=== PATIENT | male | born 1950 | race Caucasian/White ===

== ENCOUNTER → 2017-12-05 14:44 | Outpatient (CLI) | payer MEDICARE, SELFPAY ==
[2017-12-05 15:14] LABS: Hemoglobin A1c 5.8 % (4.2-6.3)
[2017-12-05 15:18] LABS: Microalbumin,Random Urine 13.6 mg/L (NO RANGE EST.); Microalbumin:Creatinine Ratio 6.8 mg/g CRE (<30 mg/g CRE)
== END ==
PROVIDERS: Family Provider Family Medicine; PCP Family Medicine
DX: Z79.899 Other long term (current) drug therapy (principal)
CPT/HCPCS: 82043; 82570; 83036

== ENCOUNTER → 2017-12-14 12:28 | Outpatient (CLI) | payer MEDICARE, SELFPAY ==
[2017-12-14 13:17] LABS: BUN 15 mg/dL (7-18); Glucose 111 mg/dL (74-106)
[2017-12-14 13:18] LABS: ALB/GLOB Ratio 1.3 RATIO (0.9-2.4); AST(SGOT) 23 U/L (15-37); Alanine Aminotransfer ALT/SGPT 35 U/L (16-61); Albumin, Serum 3.9 g/dL (3.2-5.0); Alkaline Phosphatase 79 U/L (45-117); Anion Gap 7 (5-15); BUN/Creat Ratio 14.2 RATIO (10-20); Calcium,Total 8.4 mg/dL (8.5-10.1); Chloride 105 mmol/L (98-107); Cholesterol 136 mg/dL (200); Creatinine, Serum 1.06 mg/dL (0.70-1.30); EST Glomerular Filtration Rate 74 mL/min (>60); Est Glom Filt Rate - Afr Amer 89 mL/min (>60); Globulin 3.1 g/dL (2.2-4.2); High Density Lipoprotein 42 mg/dL; Potassium 3.7 mmol/L (3.5-5.1); Sodium Level 140 mmol/L (136-145); Triglycerides 198 mg/dL; Very Low Density Lipoprotein 40 mg/dL (5-40)
== END ==
PROVIDERS: Visit Provider Family Medicine
DX: I25.10 Atherosclerotic heart disease of native coronary artery without angina pectoris (principal)
CPT/HCPCS: 80053; 80061

== ENCOUNTER → 2018-06-11 07:59 | Outpatient (CLI) | payer MEDICARE, SELFPAY ==
[2018-06-11 15:02] LABS: Hemoglobin A1c 5.5 % (4.2-6.3)
== END ==
PROVIDERS: Family Provider Family Medicine; PCP Family Medicine; Visit Provider Family Medicine
DX: R73.01 Impaired fasting glucose (principal)
CPT/HCPCS: 83036

== ENCOUNTER → 2018-06-13 16:54 | Outpatient (CLI) | payer MEDICARE, SELFPAY ==
[2018-06-13 17:18] LABS: ALB/GLOB Ratio 1.2 RATIO (0.9-2.4); AST(SGOT) 22 U/L (15-37); Alanine Aminotransfer ALT/SGPT 22 U/L (16-61); Albumin, Serum 3.7 g/dL (3.2-5.0); Alkaline Phosphatase 90 U/L (45-117); Anion Gap 7 (5-15); BUN 12 mg/dL (7-18); BUN/Creat Ratio 11.8 RATIO (10-20); Calcium,Total 8.7 mg/dL (8.5-10.1); Chloride 107 mmol/L (98-107); Creatinine, Serum 1.02 mg/dL (0.70-1.30); EST Glomerular Filtration Rate 77 mL/min (>60); Est Glom Filt Rate - Afr Amer 93 mL/min (>60); Glucose 102 mg/dL (74-106); Potassium 3.9 mmol/L (3.5-5.1); Protein, Total 6.7 g/dL (6.4-8.2); Sodium Level 143 mmol/L (136-145)
== END ==
PROVIDERS: Family Provider Family Medicine; PCP Family Medicine; Visit Provider Family Medicine
DX: E78.2 Mixed hyperlipidemia (principal); I10 Essential (primary) hypertension
CPT/HCPCS: 80053

== ENCOUNTER → 2019-06-02 | Outpatient (CLI) | payer MEDICARE, SELFPAY ==
[2019-06-02 13:33] LABS: ALB/GLOB Ratio 1.1 RATIO (0.9-2.4); AST(SGOT) 24 U/L (15-37); Alanine Aminotransfer ALT/SGPT 29 U/L (16-61); Albumin, Serum 3.5 g/dL (3.2-5.0); Alkaline Phosphatase 93 U/L (45-117); Anion Gap 7 (5-15); BUN 17 mg/dL (7-18); BUN/Creat Ratio 17.6 RATIO (10-20); Calcium,Total 8.8 mg/dL (8.5-10.1); Chloride 108 mmol/L (98-107); Creatinine, Serum 0.96 mg/dL (0.70-1.30); EST Glomerular Filtration Rate 82 mL/min (>60); Est Glom Filt Rate - Afr Amer 99 mL/min (>60); Globulin 3.1 g/dL (2.2-4.2); Glucose 107 mg/dL (74-106); Protein, Total 6.6 g/dL (6.4-8.2); Sodium Level 141 mmol/L (136-145)
[2019-06-02 13:39] LABS: Hemoglobin A1c 5.6 % (4.2-6.3)
== END | disposition home or self-care (01) ==
PROVIDERS: Referring Provider Family Medicine; Visit Provider Family Medicine
DX: R73.01 Impaired fasting glucose (principal); I10 Essential (primary) hypertension
CPT/HCPCS: 80053; 83036

== ENCOUNTER → 2019-07-16 06:41 | Outpatient (CLI) | payer MEDICARE, SELFPAY ==
--- NOTE | 2019-07-16 06:45 | CT_ITS ---
EXAM DESCRIPTION: CLINICAL HISTORY: 69 years Male, COMPARISON: None TECHNIQUE: A CTA scan of the abdomen and pelvis was performed initially with IV contrast contrast administration. 3-D volume reconstruction images were obtained. Coronal and sagittal reconstruction images were reviewed. This exam was performed according to our departmental dose-optimization program, which includes automated exposure control, adjustment of the mA and/or kV according to patient size and/or use of iterative reconstruction technique. CTDI: 16.17 DLP: 1089.94 FINDINGS: The lung bases and the base of the heart are normal. The liver is normal.The spleen is normal.The adrenal glands are normal.The head, body, and tail of the pancreas are normal. A large 6 cm cyst is noted in the midportion of the right kidney, but the right kidney and left kidneys are otherwise normal. Both ureters appear to be normal, and no obstructive uropathy is identified. No paraortic lymphadenopathy is seen. No abdominal masses or lesions are seen. CTA images of the abdominal aorta and iliofemoral circulation was reviewed and shows the proximal abdominal aorta including the celiac axis and superior mesenteric artery and right and left renal arteries to be normal. There is an accessory inferior right renal artery. There is a fusiform infrarenal abdominal aortic aneurysm which begins 1.24 cm inferior to the accessory renal artery on the right. This aneurysm extends for a distance of 8 cm down to level of the aortic bifurcation. Aneurysm has a maximal AP dimension of 4.5 cm in maximum transverse dimension of 4.09 cm. There is some mural thrombus involving the anterior peripheral margin of this aneurysm and the inferior mesenteric artery connects to the superior margin of this aneurysm is patent. The aneurysm does not extend into the common iliac arteries bilaterally which appear to be widely patent. These arteries and the external iliac arteries and common femoral arteries are both widely patent. The CT scan of the pelvis was then reviewed. The common iliac vessels, external iliac vessels, and common femoral vessels are normal along their course and distribution No pelvis masses or lesions are seen. The appendix is normal. No pericecal inflammatory reaction is seen. Bone scanning windows of the lumbar spine and pelvis were reviewed in the coronal and sagittal planes and appear to be normal. CT/CT ANGIO ABD&PEL W/O&W/DYE IMPRESSION: A 4.5 x 4.1 cm infrarenal abdominal aortic aneurysm is identified, which extends for a distance of 8 cm along the distal abdominal aorta. AAA Size: Follow-up Recommendation (1): 4.5 - 5.4 cm Every 6 months, vasc consult rec (1)Based upon the Society for Vascular Surgery Guidelines: J Vasc Surg. 2009 Oct;50(4 Suppl):S2-49 (2)For aortas of max merlin of 2.6-2.9 cm that meet criteria for AAA (>= 1.5 x proximal normal segment) Electronically Signed: Livan Negron, at 8:47 EDT Tel , Service support ,
--- NOTE | 2019-07-16 07:12 | CT_ITS ---
STUDY: CTA CHEST REASON FOR EXAM: Male, 69 years old. Abdominal aortic aneurysm. Hypertension RADIATION DOSAGE (If Supplied By Facility): CTDIvol = ( 15.21 ) mGy, DLP = ( 1089.94 ) mGycm TECHNIQUE: The examination was performed with the intravenous administration of IV Isovue 300 100. Post-processing of the angiographic images was performed, with multiplanar reformation and 3D reconstruction. Individualized dose optimization techniques were used for this CT. COMPARISON: None. FINDINGS: Normal enhancement of the main pulmonary artery and right and left pulmonary arteries. Normal enhancement of the bilateral peripheral pulmonary arteries. There is no demonstrated pulmonary embolism. Normal thoracic aorta and visualized great vessels. There is no demonstrated aortic dissection. Normal heart and pericardium. Coronary calcification arteriosclerosis is identified. Normal mediastinum. Normal hilar regions. Normal visualized trachea and bronchi. The lungs are well expanded. Normal pulmonary parenchyma. Normal pleura. No pleural-based calcifications are seen. Normal chest wall structures. Normal osseous structures. Normal visualized upper abdomen. CT/CTA Chest W/WO Contrast IMPRESSION: Normal CTA chest examination, without a demonstrated pulmonary embolism or arterial dissection. Electronically Signed: Livan Negron, at 8:00 EDT Tel , Service support ,
[2019-07-16 07:15] LABS: CREATININE FINGERSTICK 0.83 mg/dL (0.70-1.30); EGFR FINGERSTICK > 60 mL/min (>60)
== END ==
PROVIDERS: Family Provider Family Medicine; PCP Family Medicine
DX: I71.4 Abdominal aortic aneurysm, without rupture (principal)
CPT/HCPCS: 71275; 74174; Q9967

== ENCOUNTER → 2019-12-08 | Outpatient (CLI) | payer MEDICARE, SELFPAY ==
[2019-12-08 14:09] LABS: Cholesterol 150 mg/dL (200); High Density Lipoprotein 45 mg/dL; Triglycerides 145 mg/dL; Very Low Density Lipoprotein 29 mg/dL (5-40)
== END | disposition home or self-care (01) ==
LOC: LABSPEC 13:32
PROVIDERS: PCP Family Medicine; Referring Provider Family Medicine; Visit Provider Family Medicine
DX: E78.2 Mixed hyperlipidemia (principal)
CPT/HCPCS: 80061

== ENCOUNTER → 2020-06-22 | Outpatient (CLI) | payer MEDICARE, SELFPAY ==
[2020-06-22 14:10] LABS: ALB/GLOB Ratio 1.3 RATIO (0.9-2.4); AST(SGOT) 26 U/L (15-37); Alanine Aminotransfer ALT/SGPT 32 U/L (16-61); Albumin, Serum 3.8 g/dL (3.2-5.0); Alkaline Phosphatase 88 U/L (45-117); Anion Gap 6 (5-15); BUN 18 mg/dL (7-18); BUN/Creat Ratio 15.9 RATIO (10-20); Calcium,Total 8.7 mg/dL (8.5-10.1); Chloride 105 mmol/L (98-107); Creatinine, Serum 1.13 mg/dL (0.70-1.30); EST Glomerular Filtration Rate 68 mL/min (>60); Est Glom Filt Rate - Afr Amer 82 mL/min (>60); Glucose 114 mg/dL (74-106); Potassium 4.1 mmol/L (3.5-5.1); Protein, Total 6.8 g/dL (6.4-8.2); Sodium Level 140 mmol/L (136-145)
== END | disposition home or self-care (01) ==
LOC: LABSPEC 12:50
PROVIDERS: PCP Family Medicine; Referring Provider Family Medicine; Visit Provider Family Medicine
DX: I10 Essential (primary) hypertension (principal)
CPT/HCPCS: 80053

== ENCOUNTER → 2020-12-09 13:20 | Outpatient (CLI) | payer MEDICARE, SELFPAY ==
[2020-12-09 15:52] LABS: Hematocrit 48.2 % (40-54); Hemoglobin 16.2 g/dL (13.0-16.5); Mean Corp Hgb Conc 33.6 g/dL (32-36); Mean Corpuscular Volume 92.2 fL (80-94); Mean Platelet Vol. 9.3 fl (6.2-12.0); Platelet Count 271 K/mm3 (150-450); RBC Distribution Width CV 12.3 % (11.6-14.6); RBC Distribution Width SD 41.3 fl (35.1-43.9); Red Blood Count 5.23 M/mm3 (4.6-6.2); White Blood Count 5.6 K/mm3 (4.4-11.0)
[2020-12-09 16:08] LABS: ALB/GLOB Ratio 1.1 RATIO (0.9-2.4); AST(SGOT) 34 U/L (15-37); Alanine Aminotransfer ALT/SGPT 51 U/L (16-61); Albumin, Serum 3.8 g/dL (3.2-5.0); Alkaline Phosphatase 102 U/L (45-117); Anion Gap 7 (5-15); BUN 15 mg/dL (7-18); Chloride 107 mmol/L (98-107); Cholesterol 155 mg/dL (200); EST Glomerular Filtration Rate 78 mL/min (>60); Est Glom Filt Rate - Afr Amer 95 mL/min (>60); Globulin 3.5 g/dL (2.2-4.2); Glucose 112 mg/dL (74-106); High Density Lipoprotein 41 mg/dL; Potassium 4.3 mmol/L (3.5-5.1); Protein, Total 7.3 g/dL (6.4-8.2); Sodium Level 142 mmol/L (136-145); Triglycerides 183 mg/dL; Uric Acid 5.4 mg/dL (3.5-7.2); Very Low Density Lipoprotein 37 mg/dL (5-40)
== END ==
PROVIDERS: PCP Family Medicine; Visit Provider Family Medicine
DX: I25.10 Atherosclerotic heart disease of native coronary artery without angina pectoris (principal); M10.9 Gout, unspecified; E78.2 Mixed hyperlipidemia; I10 Essential (primary) hypertension
CPT/HCPCS: 80053; 80061; 84550; 85027

== ENCOUNTER → 2022-03-22 | Outpatient (CLI) | payer MEDICARE, SELFPAY ==
--- NOTE | 2022-03-22 16:39 | CT_ITS ---
STUDY: CT ABDOMEN WITH CONTRAST REASON FOR EXAM: Male, 71 years old. duodenal stenosis -- oral and IV RADIATION DOSAGE (If Supplied By Facility): CTDIvol = ( 15.25 ) mGy, DLP = ( 522.12 ) mGycm TECHNIQUE: Transaxial images were obtained post I.V. administration of Oral and amp;amp; IV Readi-CAT and amp;amp; 100mL Isovue-370, and with oral contrast. Sagittal and coronal images were reconstructed. Individualized dose optimization techniques were used for this CT. COMPARISON: None. FINDINGS: The visualized lung bases are unremarkable. The visualized portions of the heart are within normal limits. Normal liver. Normal gallbladder and extrahepatic biliary system. Normal spleen. Normal pancreas. Normal bilateral adrenal glands. 5.5 cm cyst of the midsection of right kidney. 3 mm nonobstructing stone in the mid section of the right kidney. 3 mm nonobstructing stone lower pole right kidney. No hydronephrosis, ureteral stone, ureteral dilatation. Normal visualized stomach. Normal small intestine. Normal colon. The appendix is visualized and appears normal. 4.5 cm fusiform aneurysm of the infrarenal abdominal aorta. Normal inferior vena cava. Normal retroperitoneum. Normal abdominal wall. Normal osseous structures. CT/Abdomen WITH IV Contrast IMPRESSION: 1. Bilateral nonobstructing renal stones. 2. 5.5 cm right renal cyst. 3. 4.5 cm abdominal aortic aneurysm. Electronically Signed: Tulio Joseph MD at 17:35 EDT ,
[2022-03-23 07:25] LABS: CREATININE FINGERSTICK < 0.9 mg/dL (0.70-1.30); EGFR FINGERSTICK > 60.0000 mL/min (>60)
== END | disposition home or self-care (01) ==
PROVIDERS: PCP Family Medicine; Visit Provider Nurse Practitioner Adult Health
DX: K31.5 Obstruction of duodenum (principal)
CPT/HCPCS: 74160; Q9967

== ENCOUNTER 2022-04-07 05:09 | Day surgery (SDC) | payer MEDICARE, SELFPAY ==
--- NOTE | 2022-04-07 | IMM_PTH ---
PATIENT: JOÃO COX LOC: EN U#:[id number] AGE/SX: 71/M ROOM: RE04/07/[address]: Dr. Carlton Moran DO : 1950 BED: DIS: 04/07/2022 SPEC #: [id number] RECD: 04/11/22 13:10 STATUS: JOSEPH REReinier #: [id number] DEB: 04/07/22 00:[address]: Carlton Moran DEPT: IMMUNOHISTOCHEMISTRY RECD BY: Val Husian ENTERED: 04/11/22 13:12 SP TYPE: IMMUNO OTHR DR: Dr. Rush Foy MD Tissues: A - Esophageal mucous membrane B - Pyloric portion of stomach Procedures: H Pylori (initial) P53 (initial) KI-67 (add) PHYSICIAN & INSTITUTION [place] [id number] SPECIMEN INFORMATION: Tissue Source: A ? Distal esophagus, B ? 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 Localization is made via biotin free immunoperoxidase method. Appropriate controls are performed and reacted as expected. Results on target cell population are indicated in the following table: RESULTS: ANTIBODY / CLONE RESULT Block A P53 (DO-7) negative Ki-67 (30-9) positive, very low Block B H Pylori (polyclonal) negative These tests were developed and their performance characteristics determined by [facility]. They may not have been cleared or approved by the U.S. Food and Drug Administration. The FDA has determined that such clearance or approval is not necessary. The above immunohistochemical/dualISH markers are ordered and reviewed by the Pathologist. INTERPRETATION: A. Distal esophagus, biopsy: Negative for dysplasia. B. Pyloric channel ulcer, biopsy: Negative for Helicobacter pylori organisms. SJ:theresa 04/12/2022
[2022-04-07] MEDS: Lactated Ringers 1,000 ML 15 ML IV (05:35)
[2022-04-07 05:48] VITALS: BP 161/85; PULSE 60; RESP 18; TEMP 36.6; O2SAT 98; BMI 26.2
--- NOTE | 2022-04-07 06:30 | EGD_PTH ---
PATIENT: JOÃO COX LOC: EN U#:[id number] AGE/SX: 71/M ROOM: RE04/07/[address]: Dr. Carlton Moran DO : 1950 BED: DIS: 04/07/2022 SPEC #: [id number] RECD: 04/07/22 13:14 STATUS: JOSEPH ELTON #: [id number] DEB: 04/07/22 06:[address]: Carlton Moran DEPT: SURGICAL PATHOLOGY RECD BY: John Taylor ENTERED: 04/07/22 13:30 SP TYPE: EGD BIOPSY WILLIAN DR: Dr. 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 Distal esophagus biopsy, B ? Pyloric channel ulcer biopsy MICROSCOPIC DIAGNOSIS A. 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 Chronic inflammation. Negative for dysplasia. See comment. B. Pyloric channel ulcer, biopsy: Fragments of gastric mucosa with focal ulceration, acute and chronic inflammation. See comment. SJ:rg 04/11/2022 COMMENT A. Alcian blue/PAS stain with matched control is used in the evaluation of the specimen. Immunohistochemistry ([id number]) for P53 and Ki-67 will be performed and results will be reported separately. B. The results of immunohistochemistry for Helicobacter pylori will be reported separately ([id number]). MICROSCOPIC DESCRIPTION Slides are reviewed. GROSS DESCRIPTION A - Received in fixative is one container labeled with the patient's name and designated distal esophagus biopsy. The specimen consists of multiple irregular fragments of light diego soft tissue that in aggregate measure 1 x 0.5 x 0.1 cm. The specimen is totally submitted in one cassette. B - Received in fixative is one container labeled with the patient's name and designated pyloric channel ulcer biopsy. The specimen consists of multiple irregular fragments of light diego soft tissue that in aggregate measure 0.8 x 0.5 x 0.1 cm. The specimen is totally submitted in one cassette. / JUANY:theresa 04/07/2022 TC:2 CPT: 49714 x2, 91343
--- NOTE | 2022-04-07 06:40 | PCM.HP.BLA ---
History and Physical Date of Admission: 04/07/22 [facility] [address] [place] [address] OFFICE VISIT Date of Service:? 03/14/22 MR#: [id number] Acct: [id number] Name:JOÃO SANDERS Rep #: [id number] : 1950 ? ? Provider: ?PEPEC Virginia Nogueira Age/Sex:? 71/M ? ? [place] [facility] [place] Status: Signed Intake Intake Visit Reasons:?CONSU Allergies cefdinir Adverse Reaction (Uncoded 02/07/22 10:17) Nausea/Vom/Diarrhea Medications Aspirin/Acetaminophen/Caffeine [Excedrin Extra Strength Caplet] 1 tab PO PRN PRN 01/24/17 [History Confirmed 01/24/17] meclizine 25 mg PO PRN PRN 01/24/17 [History Confirmed 01/24/17] metoprolol succinate 100 mg PO DAILY 01/24/17 [History Confirmed 01/24/17] allopurinol 100 mg tablet 100 mg PO DAILY 02/07/22 [History] atorvastatin 20 mg tablet 20 mg PO QHS 03/14/22 [History] lisinopril 40 mg tablet 40 mg PO DAILY 03/14/22 [History Confirmed 03/14/22] pantoprazole 40 mg tablet,delayed release 40 mg PO BID? tab 03/14/22 [History] PFSH Medical History?(Updated 03/14/22 @ 14:55 by Virginia Nogueira CLOTH TEARER, CLOTH TEARER-C) AAA (abdominal aortic aneurysm) CAD (coronary artery disease) Diverticulitis Duodenitis without mention of hemorrhage Erectile dysfunction Esophagitis Gout Hypertension Vertigo Surgical History?(Updated 02/07/22 @ 10:22 by Alea Taylor) Hx of tonsillectomy Family History?(Updated 02/07/22 @ 10:23 by Alea Taylor) Mother Colon cancer ?? ? Liver Social History?(Updated 02/07/22 @ 10:24 by Alea Taylor) Smoking Status:? Former smoker alcohol intake:? current HPI HPI Details: JOÃO COX, is a 71 M who presents to the office today for duodenal stenosis.? [facility], referred patient to Dr. Moran for dilation of a moderate stenosis in the first portion of the duodenum that was not traversed.? EGD was done on 12/16/[address] Carmona, a general surgeon at [facility].? Her report notes an acquired benign-appearing intrinsic moderate stenosis was found in the first portion of the duodenum and was not traversed.? She also notes patchy moderately erythematous mucosa with stigmata of recent bleeding in the stomach, and grade a chronic esophagitis.? Biopsies showed reactive gastropathy, negative H. pylori, and superficial fragment of columnar mucosa with focal intestinal metaplasia, negative for dysplasia in the esophagus.? Dr. Carmona referred the patient to Dr. Noonan.? Dr. Noonan's note from 01/31/2022 noted that the EGD done by Dr. Carmona on 07/28/2020 showed erythema friability and ulcerations in the first portion of the duodenum, the scope could not be advanced to the second portion of the duodenum then either.? Biopsy done during the 2019 EGD was unremarkable.? Dr. Noonan's note remarks that the last colonoscopy was 9 years ago, only finding was a polyp which was removed and pathology was negative. Patient has had acid reflux since the age of 39.? His Workman's was first diagnosed at age 49.? He has no symptoms of acid reflux or heartburn or dysphagia on twice daily dosing of pantoprazole.? GI history also includes diverticulosis.? He has no nausea or vomiting.? Bowels are fine, he denies diarrhea, constipation, melena or hematochezia.? He has no abdominal pain.? Appetite is good.? Weight is stable. Comorbidities include hypertension, hyperlipidemia, back pain, gout, CAD, vertigo ROS Const Constitutional: No fatigue, fever(s), headache(s), weight change, sleep problems, abnormal sleep pattern or change in appetite ENT ENT: No headache(s), difficulty swallowing, hoarseness or sore throat Resp Respiratory: No cough, hemoptysis or shortness of breath Cardio Cardiology: No chest pain at rest or generalized swelling Gastro GI: No abdominal pain, belching, bloating, change in bowel habits, change in stool character, coffee ground emesis, constipation, cramping, diarrhea, heartburn, difficulty swallowing, feeling full early, excessive flatus, incontinent of stools, Vomiting blood/hematemesis, Blood in stool, loose stools, Black,tarry stools, nausea/dyspepsia, pain with swallowing or vomiting Musc Musculoskeletal: Positive for back pain and stiffness; No joint pain, joint swelling, numbness or tingling Skin Skin: No itchy eyes or rash Neuro Neurology: No behavioral changes, confusion, headache(s), numbness or tingling Psych Psychiatric: No abnormal sleep pattern, No anxiety, No behavioral changes, No change in appetite, No confusion and No depression Endo Endocrine: No cold intolerance, fatigue, heat intolerance, increased thirst/drinking or weight change Aller/Imm Allergy/Immunologic: No food intolerance or itchy eyes Prabhu/Lymp Hematologic/Lymphatic: Positive for easy bruising; No easy bleeding or enlarged lymph nodes Exam Const General: healthy appearing, comfortable, well developed and well groomed Nutritional Appearance: average body habitus Eyes General: appearance normal, both eyes and all related structures Resp Effort & Inspection: normal respiratory effort GI Inspection: normal to inspection Neuro General: patient alert, patient awake and patient oriented x3 Gait: normal gait Extrem General: no pedal edema Psych Mood: euthymic mood Affect: normal affect Quality Reporting Tobacco Screening ([facility] 138) Smoking Status: Former smoker Assessment and Plan Assessment and Plan (1) GERD (gastroesophageal reflux disease): ?Status:?Acute (2) Workman's esophagus: ?Status:?Acute (3) Duodenal disorder: ?Status:?Acute ?Plan: 71-year-old male with duodenal stenosis.? He has a long history of GERD and Workman's esophagus which is well managed with twice daily dosing of pantoprazole 40 mg.? General surgeon found stenosis in the first part of the duodenum.? He has been referred to Dr. Moran for further evaluation and dilation of the duodenal stenosis.? I reviewed the case with Dr. Moran.? We will get imaging in the form of a CT scan prior to EGD.? He is scheduled for EGD in April.? Follow-up 2 weeks after EGD. Coding Level of Care Code Off vis,new,level 3 Diagnoses GERD (gastroesophageal reflux disease)? K21.9 Workman's esophagus? K22.70 Duodenal disorder? K31.9 I have re-examined the patient. There are no clinical changes since date of exam.
[2022-04-07 06:56] VITALS: BP 134/72; BP 161/85; PULSE 66; RESP 14; TEMP 36.4; O2SAT 96
[2022-04-07 07:00] VITALS: BP 139/75; BP 161/85; PULSE 65; RESP 16; O2SAT 98
--- NOTE | 2022-04-07 07:01 | OP.EGD_ITS ---
Patient Name: Kris Cornell Procedure Date: 04/07/2022 6:22 AM Date of : 1950 Age: 71 Procedure: Upper GI endoscopy Indications: Follow-up of Workman's esophagus, Surveillance for malignancy due to personal history of Workman's esophagus Providers: Carlton Moran DO Medicines: Monitored Anesthesia Care Patient Profile: This is a 71 year old male. Refer to note in patient chart for documentation of history and physical. Patient has symptoms of chronic heartburn. Complications: No immediate complications. Procedure: Pre-Anesthesia Assessment: - Prior to the procedure, a History and Physical was performed, and patient medications and allergies were reviewed. The patient is competent. The risks and benefits of the procedure and the sedation options and risks were discussed with the patient. All questions were answered and informed consent was obtained. Patient identification and proposed procedure were verified by the physician. Mental Status Examination: alert and oriented. Airway Examination: normal oropharyngeal airway and neck mobility. Respiratory Examination: clear to auscultation. CV Examination: normal. Prophylactic Antibiotics: The patient does not require prophylactic antibiotics. Prior Anticoagulants: The patient has taken no previous anticoagulant or antiplatelet agents. After reviewing the risks and benefits, the patient was deemed in satisfactory condition to undergo the procedure. The anesthesia plan was to use moderate sedation / analgesia (conscious sedation). Immediately prior to administration of medications, the patient was re-assessed for adequacy to receive sedatives. The heart rate, respiratory rate, oxygen saturations, blood pressure, adequacy of pulmonary ventilation, and response to care were monitored throughout the procedure. The physical status of the patient was re-assessed after the procedure. After obtaining informed consent, the endoscope was passed under direct vision. Throughout the procedure, the patient's blood pressure, pulse, and oxygen saturations were monitored continuously. The gastroscope was introduced through the mouth, and advanced to the second part of duodenum. The upper GI endoscopy was accomplished without difficulty. The patient tolerated the procedure well. Scope In: 6:46:19 AM Scope Out: 6:51:36 AM Total Procedure Duration Time 0 hours 5 minutes 17 seconds Findings: The esophagus and gastroesophageal junction were examined with white light and narrow band imaging (NBI) from a forward view and retroflexed position. There were esophageal mucosal changes secondary to established long-segment Workman's disease. These changes involved the mucosa at the upper extent of the gastric folds (39 cm from the incisors) extending to the Z-line (33 cm from the incisors). Doniphan-colored mucosa was present. Mucosa was biopsied with a cold forceps for histology in a targeted manner at intervals of 1 cm in the lower third of the esophagus. One specimen bottle was sent to pathology. A small hiatal hernia was present. A small amount of a trichobezoar was found in the gastric body. Two non-bleeding linear gastric ulcers with no stigmata of bleeding were found at the pylorus. The largest lesion was 4 mm in largest dimension. Biopsies were taken with a cold forceps for histology. Verification of patient identification for the specimen was done. Estimated blood loss was minimal. Food (residue) was found in the duodenal bulb. Impression: - Esophageal mucosal changes secondary to established long-segment Workman's disease. Biopsied. - Small hiatal hernia. - A small amount of a trichobezoar in the stomach. - Non-bleeding gastric ulcers with no stigmata of bleeding. Biopsied. - Retained food in the duodenum. Recommendation: - Discharge patient to home. - Resume regular diet. - Continue present medications. - Await pathology results. -PPI twice a day for 8 weeks and Carafate 1 g 3 times a day for 2 weeks - Repeat upper endoscopy in 1 year for surveillance. Procedure Code(s): --- Professional --- 41043, Esophagogastroduodenoscopy, flexible, transoral; with biopsy, single or multiple CPT copyright 2017 [employer]. All rights reserved. The codes documented in this report are preliminary and upon factory expert review may be revised to meet current compliance requirements. Carlton Moran DO 04/07/2022 7:01:03 AM This report has been signed electronically. Number of Addenda: 1 Note Initiated On: 04/07/2022 6:22 AM Addendum Number: 1 Addendum Date: 07/12/2022 6:33:53 AM MAC was used as sedation for this procedure. Carlton Moran DO 07/12/2022 6:33:57 AM This report has been signed electronically.
--- NOTE | 2022-04-07 07:01 | OP.CCLET_ITS ---
07/12/2022 Rush Foy Re : Upper GI endoscopy procedure for Kris Cornell Stu Foy This procedure was performed on Thursday, April 07, 2022. My impressions and recommendations are as follows: Impressions : - Esophageal mucosal changes secondary to established long-segment Workman's disease. Biopsied. - Small hiatal hernia. - A small amount of a trichobezoar in the stomach. - Non-bleeding gastric ulcers with no stigmata of bleeding. Biopsied. - Retained food in the duodenum. Recommendations : - Discharge patient to home. - Resume regular diet. - Continue present medications. - Await pathology results. -PPI twice a day for 8 weeks and Carafate 1 g 3 times a day for 2 weeks - Repeat upper endoscopy in 1 year for surveillance. My findings are described in the full procedure note, which is enclosed. If I can be of further assistance, please feel free to contact me at . Sincerely, Carlton Moran, 04/07/2022 7:01:03 AM This report has been signed electronically.
[2022-04-07 07:05] VITALS: BP 131/82; BP 161/85; PULSE 64; RESP 16; O2SAT 95
[2022-04-07 07:11] VITALS: BP 141/74; BP 161/85; PULSE 61; RESP 16; TEMP 36.4; O2SAT 96
[2022-04-07 07:25] VITALS: BP 161/85
== END 2022-04-07 08:25 | disposition home or self-care (01) ==
LOC: EN 05:14 → AC 05:15
PROVIDERS: PCP Family Medicine; Referring Provider Family Medicine; Visit Provider Internal Medicine Gastroenterology
PROC: 0DJ08ZZ Inspection of Upper Intestinal Tract, Via Natural or Artificial Opening Endoscopic (ICD-10-PCS; CPT 43235; principal; 2022-04-07 06:25)
DX: K22.70 Barrett's esophagus without dysplasia (principal); I71.4 Abdominal aortic aneurysm, without rupture; I25.10 Atherosclerotic heart disease of native coronary artery without angina pectoris; M10.9 Gout, unspecified; I10 Essential (primary) hypertension; Z79.82 Long term (current) use of aspirin; Z79.899 Other long term (current) drug therapy; Z87.19 Personal history of other diseases of the digestive system; Z87.891 Personal history of nicotine dependence; K31.5 Obstruction of duodenum; E78.00 Pure hypercholesterolemia, unspecified; K44.9 Diaphragmatic hernia without obstruction or gangrene; K25.9 Gastric ulcer, unspecified as acute or chronic, without hemorrhage or perforation; T18.2XXA Foreign body in stomach, initial encounter; X58.XXXA Exposure to other specified factors, initial encounter; K21.9 Gastro-esophageal reflux disease without esophagitis
CPT/HCPCS: 43239; 88305; 88313; 88341; 88342; J7120; J2405

== ENCOUNTER 2022-10-07 11:01 | Emergency (ER) | payer MEDICARE, SELFPAY ==
[2022-10-07 11:02] VITALS: BP 159/75; PULSE 54; RESP 18; TEMP 36.6; O2SAT 99; BMI 26.3
--- NOTE | 2022-10-07 11:16 | CT_ITS ---
STUDY: CT ABDOMEN AND PELVIS WITH CONTRAST REASON FOR EXAM: Male, 72 years old. GI Bleed AND DIARRHEA RADIATION DOSAGE (If Supplied By Facility): CTDIvol = ( 17.15 ) mGy, DLP = ( 996.06 ) mGycm TECHNIQUE: Transaxial 3.75 mm images were obtained from the dome of the diaphragm to the symphysis pubis without oral contrast. IV 100mL Isovue-370 was administered. Sagittal and coronal images were reconstructed. Individualized dose optimization techniques were used for this CT. COMPARISON: CT abdomen and pelvis 03/22/2022. 07/16/2019. FINDINGS: Stable emphysema in the bilateral lung bases. The visualized portions of the heart are within normal limits. Stable 0.2 cm low-attenuation left hepatic lobe. This is too small to characterize but has a appearance of this tiny cyst. Normal gallbladder and extrahepatic biliary system. Normal spleen. Normal pancreas. Normal bilateral adrenal glands. Stable large partially loculated right mid renal cyst with stable mild dilatation of the renal pelvis. Previously seen nonobstructing right mid renal calculus is not visualized currently. Stable nonobstructing left inferior renal pole calculus of 2 to 3 mm. Normal visualized stomach. Normal small intestine. There are multiple colonic diverticula consistent with diverticulosis. The appendix is visualized and appears normal. Infrarenal fusiform abdominal aortic aneurysm extending to the bifurcation measuring 5.5 x 5.2 cm with maximum diameter, previously at corresponding level 5.5 x 5.1 cm. This is extending to the iliac bifurcation. There is no iliac artery involvement. No evidence of dissection. Normal inferior vena cava. Normal retroperitoneum. Normal urinary bladder. There are stable small inguinal hernia containing adipose tissue. There are diffuse degenerative changes of the visualized lumbar spine and mild osteopenia CT/Abdomen/Pelvis W IV Cont ONLY IMPRESSION: There is no appendicitis, ascites, diverticulitis, abscess, collection, perforation or obstruction. Falciform infrarenal aortic aneurysm without leak, dissection or retroperitoneal hematoma/hemorrhage without significant change. Stable right renal cysts, left inferior renal pole nonobstructing calculus, emphysema, fat-containing inguinal hernias and degenerative changes. Electronically Signed: Elisabeth Hawthorne MD at 12:57 EST Reading Location ID and State: , Service support ,
--- NOTE | 2022-10-07 11:18 | ED.VIS.GI ---
HPI HPI - GI History of Present Illness Chief Complaint: GI Bleed Narrative Narrative: 72-year-old male past medical history of AAA, presents with rectal bleeding since yesterday. He relates history that he had diarrhea for the last 3 weeks. He denies any fevers or chills. No nausea or vomiting. No abdominal pain. Yesterday he noticed bright red blood mixed with normal colored stool. He denies any pain with bowel movements. He went and saw his primary care physician who performed a rectal examination but there was no evidence of hemorrhoid or blood according to the patient. He does not take blood thinners per se, but does take aspirin. Additionally, he denies any recent antibiotic use regarding the diarrhea. He was sent for evaluation of his lower, painless GI bleed. His last bowel movement was yesterday and he has not had any noted bleeding today, but he has not had a bowel movement. [facility] Medical History AAA (abdominal aortic aneurysm) Alcohol use Back pain CAD (coronary artery disease) Duodenitis without mention of hemorrhage Erectile dysfunction Esophagitis Former smoker Gastric reflux Gout High cholesterol History of echocardiogram History of stress test History of trigger finger History of ulceration Hx of dislocation of shoulder Hypertension Vertigo Wears dentures Wears glasses Wears partial dentures Home Medications Aspirin/Acetaminophen/Caffeine [Excedrin Extra Strength Caplet] 1 tab PO PRN PRN Migraine Symptoms 01/24/17 [History Last Taken Unknown] meclizine 25 mg tablet 25 mg PO PRN PRN Vertigo 01/24/17 [History Last Taken Unknown] metoprolol succinate 100 mg tablet,extended release 24 hr 100 mg PO DAILY 01/24/17 [History Last Taken 04/07/22] allopurinol 100 mg tablet 100 mg PO DAILY 02/07/22 [History Last Taken Unknown] atorvastatin 20 mg tablet 20 mg PO QHS 03/14/22 [History Last Taken Unknown] lisinopril 40 mg tablet 40 mg PO DAILY 03/14/22 [History Last Taken 04/07/22] pantoprazole 40 mg tablet,delayed release 40 mg PO BID 03/14/22 [History Last Taken 04/07/22] Allergy/AdvReac Type Severity Reaction Status Date / Time cefdinir AdvReac Nausea/Vom/ Verified 10/07/22 11:05 Diarrhea Family History Mother Colon cancer Liver Surgical History Hx of arthroscopic knee surgery Hx of colonoscopy Hx of esophagogastroduodenoscopy Hx of left knee surgery Hx of tonsillectomy Social History Smoking Status: Former smoker alcohol intake: current ROS ROS ED ROS Narrative Constitutional: No fever, no chills. HEENT: No sore throat. No neck pain. No loss of vision. No rhinorrhea. Cardiovascular: No chest pain. No palpitations. No pedal edema. Respiratory: No cough, no shortness of breath. Abdominal: No abdominal pain. No nausea. No vomiting. Positive diarrhea x3 weeks. Blood mixed with stool yesterday. Genitourinary: No dysuria. No hematuria. Musculoskeletal: No myalgias. No arthralgias. Neurologic: No headaches. No dizziness. No lightheadedness. Skin: No rash. No change in color. Psychiatric: No depression. No anxiety. EXAM Physical Exam Narrative Exam Narrative: Afebrile. Vital signs noted. HEENT: Normocephalic. Atraumatic. PERRL, EOMI. Neck soft and supple. No point tenderness or step off. Cardiovascular: Regular rate and rhythm. No murmurs, rubs, or gallops appreciated. Respiratory: No tachypnea. Lungs clear to auscultation bilaterally. Gastrointestinal: Abdomen soft, nontender, with normoactive bowel sounds. No rebound or guarding. Rectal examination was deferred as he has had a rectal examination already today. Neurological: Awake. Alert. Nonfocal, nonlateralizing. Skin: No rash. Normal color. No pallor. Musculoskeletal: No pedal edema. Full range of motion extremities. Const Vital Signs: 10/07/22 11:02 10/07/22 11:29 10/07/22 12:35 Temperature 97.8 F Temperature Source Temporal Pulse Rate 54 L 54 L 59 L Pulse Rate [Lying] Pulse Rate [Sitting (for 1 minute prior to obtaining)] Respiratory Rate 18 18 19 H Blood Pressure 159/75 H 155/73 H 135/65 H Blood Pressure [Lying] Blood Pressure [Sitting (for 1 minute prior to obtaining)] Blood Pressure [Standing (for 1 minute prior to obtaining)] Blood Pressure Mean 103 100 88 Blood Pressure Mean [Lying] Blood Pressure Mean [Sitting (for 1 minute prior to obtaining)] Blood Pressure Mean [Standing (for 1 minute prior to obtaining)] Pulse Ox 99 97 96 Oxygen Delivery Method Room Air Room Air Room Air 10/07/22 12:50 Temperature Temperature Source Pulse Rate Pulse Rate [Lying] 58 L Pulse Rate [Sitting (for 1 minute prior to obtaining)] 57 L Respiratory Rate Blood Pressure Blood Pressure [Lying] 132/62 H Blood Pressure [Sitting (for 1 minute prior to obtaining)] 108/94 H Blood Pressure [Standing (for 1 minute prior to obtaining)] 125/74 H Blood Pressure Mean Blood Pressure Mean [Lying] 85 Blood Pressure Mean [Sitting (for 1 minute prior to obtaining)] 98 Blood Pressure Mean [Standing (for 1 minute prior to obtaining)] 91 Pulse Ox Oxygen Delivery Method MDM MDM MDM Narrative Medical decision making narrative: Comprehensive work-up was pursued. I obtained a CBC, BMP, orthostatics, and CT imaging to look for any inflammation of the colon/colitis versus diverticulitis although he has a nontender abdomen. He relates history that he has had colonoscopy performed by Dr. Carmona, and additionally he had ultrasound recently of his abdominal aortic aneurysm by Dr. Moran which appeared stable. CBC shows normal white count of 5.6, hemoglobin normal at 15.8, hematocrit 45.9. Normal platelet count of 230. BMP shows normal BUN of 16 and a creatinine of 1.0, also unremarkable except for glucose of 112 with low anion gap of 4. CT of the abdomen and pelvis shows no evidence of colitis or diverticulitis. There is an aortic aneurysm without leak or dissection, no significant change. Orthostatics are essentially unremarkable. There was no increase in his pulse rate. At this point in time, I feel he be discharged home to follow-up with either Dr. Carmona or Dr. Moran for possible colonoscopy should he have continued bleeding. He may have more of an internal hemorrhoid versus AV malformation. He will follow-up with his primary care provider. Return instructions to the emergency department were reviewed. Disposition is discharged home in stable condition. Lab Data Attestation: I reviewed the patient's lab results. Labs: Laboratory Results - last 24 hr 10/07/22 10/07/22 11:20 11:20 WBC 5.6 RBC 4.93 Hgb 15.8 Hct 45.9 MCV 93.1 MCH 32.0 MCHC 34.4 RDW Std Deviation 45.0 H RDW Coeff of Nicole 13.2 Plt Count 230 MPV 8.8 Immature Gran % (Auto) 0.200 Neut % (Auto) 57.1 Lymph % (Auto) 29.1 Hart % (Auto) 7.2 Eos % (Auto) 5.0 Baso % (Auto) 1.4 H Absolute Neuts (auto) 3.2 Absolute Lymphs (auto) 1.62 Nucleated RBC % 0 Sodium 139 Potassium 4.2 Chloride 107 Carbon Dioxide 28.0 Anion Gap 4 L BUN 16 Creatinine 1.09 Estim Creat Clear Calc 56.43 Est GFR (MDRD) Af Amer 85 Est GFR (MDRD) Non-Af 70 BUN/Creatinine Ratio 14.7 Glucose 112 H Calcium 9.0 Radiography Diagnostic Testing: Clinical Impression(s) from Imaging Studies Abdomen/Pelvis CT 10/07/22 11:16 IMPRESSION: There is no appendicitis, ascites, diverticulitis, abscess, collection, perforation or obstruction. Falciform infrarenal aortic aneurysm without leak, dissection or retroperitoneal hematoma/hemorrhage without significant change. Stable right renal cysts, left inferior renal pole nonobstructing calculus, emphysema, fat-containing inguinal hernias and degenerative changes. Electronically Signed: Elisabeth Hawthorne MD at 12:57 EST Reading Location ID and State: , Service support , Discharge Plan Triage Chief Complaint: GI Bleed ED Provider: Rupert Torres Dx/Rx/DC Orders Clinical Impression: Rectal bleeding, Abdominal aortic aneurysm (AAA) Instructions: ED Lower GI Bleeding (Stable) Prescriptions: No Action allopurinol 100 mg tablet 100 mg PO DAILY atorvastatin 20 mg tablet 20 mg PO QHS lisinopril 40 mg tablet 40 mg PO DAILY Aspirin/Acetaminophen/Caffeine [Excedrin Extra Strength Caplet] 1 EACH tablet 1 tab PO PRN PRN (Reason: Migraine Symptoms) metoprolol succinate 100 MG tablet 100 mg PO DAILY meclizine 25 MG tablet 25 mg PO PRN PRN (Reason: Vertigo) pantoprazole 40 mg tablet,delayed release (DR/EC) 40 mg PO BID Primary Care Provider: Rush Foy Referrals: Rush Foy MD [Primary Care Provider] - 3-5 Days if not improving Activity Restrictions/Additional Instructions: Follow-up with Dr. Moran or Dr. Carmona for possible repeat colonoscopy for continued bleeding. Return with rectal hemorrhage, new or worsening symptoms. Disposition Disposition: Home, Self Care
[2022-10-07 11:29] VITALS: BP 155/73; PULSE 54; RESP 18; O2SAT 97
[2022-10-07] MEDS: 0.9% Normal Saline 1,000 ML 1000 ML IV (11:29)
[2022-10-07 11:34] LABS: Absolute Lymphocyte Count 1.62 X10^3/uL (0.83-4.51); Absolute Neutrophil Count 3.2 X10^3/uL (2.0-7.7); Basophil# 0.08 X10^3/uL; Basophil% 1.4 % (0-1); Eosinophil# 0.28 X10^3/uL; Hematocrit 45.9 % (40-54); Hemoglobin 15.8 g/dL (13.0-16.5); Lymphocyte # 1.62 X10^3/ul (0.83-4.51); Lymphocyte % 29.1 % (19-41); Mean Corp Hgb Conc 34.4 g/dL (32-36); Mean Corpuscular Volume 93.1 fL (80-94); Mean Platelet Vol. 8.8 fl (6.2-12.0); Monocyte% 7.2 % (0-10); NRBC Flagged by Analyzer 0 % (0-5); Neutrophil # 3.17 X10^3/uL (2.7-7.7); Neutrophil % 57.1 % (47-70); Platelet Count 230 K/mm3 (150-450); RBC Distribution Width CV 13.2 % (11.6-14.6); Red Blood Count 4.93 M/mm3 (4.6-6.2); White Blood Count 5.6 K/mm3 (4.4-11.0)
[2022-10-07 11:51] LABS: Anion Gap 4 (5-15); BUN 16 mg/dL (7-18); BUN/Creat Ratio 14.7 RATIO (10-20); Chloride 107 mmol/L (98-107); Creatinine, Serum 1.09 mg/dL (0.70-1.30); EST Glomerular Filtration Rate 70 mL/min (>60); Est Glom Filt Rate - Afr Amer 85 mL/min (>60); Estimated Creatinine Clearance 56.43 ml/min; Glucose 112 mg/dL (74-106); Potassium 4.2 mmol/L (3.5-5.1); Sodium Level 139 mmol/L (136-145)
[2022-10-07 12:35] VITALS: BP 135/65; PULSE 59; RESP 19; O2SAT 96
[2022-10-07 12:50] VITALS: BP 108/94; BP 125/74; BP 132/62; PULSE 57; PULSE 58
== END 2022-10-07 13:13 | disposition home or self-care (01) ==
PROVIDERS: Emergency Provider Emergency Medicine; PCP Family Medicine; Visit Provider Emergency Medicine
DX: K62.5 Hemorrhage of anus and rectum (principal); I10 Essential (primary) hypertension; E78.00 Pure hypercholesterolemia, unspecified; I25.10 Atherosclerotic heart disease of native coronary artery without angina pectoris; I71.40 Abdominal aortic aneurysm, without rupture, unspecified; Z87.891 Personal history of nicotine dependence
CPT/HCPCS: 74177; 80048; 85025; 96360; 96361; 99284; J7030; Q9967

== ENCOUNTER 2023-09-03 10:48 | Outpatient (RCR) | payer MEDICARE, SELFPAY ==
--- NOTE | 2023-09-03 16:21 | HP.OTEVAL_ITS ---
Patient's Visit Information Visit Information Visit Information: JOÃO COX is a 73 year old M, referred to Occupational Therapy by Dr. Rush Foy MD, with a diagnosis of right IF trigger finger. Date of Evaluation: 09/03/23 Occupational Therapist: Avelina Rivas, OTR/Blessing, CHT Subjective Subjective: This 73 year old male was seen for OT eval with dx of righ tIF trigger finger- pt states he had release 07/19/23. pt states he has had trouble with triggering for months- pt states he has had 4 total trigger fingers release and this one has been bothersome since sx. pt states he can not straighten his finger and if he tries it is painful- pt states he would like to see his finger straighter and not have the pain he gets in AM. Pain right IF: Current Pain Intensity: 4 Pain Intensity Range: 0 and 4 ROM MP: right IF -10/80 left -5/90 PIP: right IF -5/105 left +10/105 DIP: right IF -20/55 left 0/50 Strength Mortgage Loan Counselor: right 70# left 85# Lateral Pinch: right 12# left 14# Tripod Pinch: right 16# left 14# Goals Goal:: pt will demo a increase in right sack lifter strength by 10# to increase pts ind. with Home mtg tasks by d/c Goal:: pt will demo increase in right IF ext by 10* to increase pts ind with placing hand in pocket or flat hand on table top by d.c Goal:: pt will report pain no greater than 2/10 with use of right hand with ADLs and IADls by d/c Goal:: pt will demo understanding of scar mtg by end of 2nd session to decrease scar adhesions to improve end range motion by d.c Goal:Daily scar massage when approriate: Yes Goal:ROM equal to unaffected hand: Yes Goal:Mortgage Loan Counselor/Pinch strength at least 75% of unaffected hand: Yes Goal:No pain with affected hand use: Yes Goal:Full use of affected hand in daily activities including work: Yes Rehabilitation General Assessment: pt demo with hypertrophic scar/pain and weakness limiting pts IND with ADLs and IADls. pt would benefit from skilled OT services 1-2x week for 4 weeks to regain pts functional ROM and strength to return to his PLOF. Today therapist ed. pt on AROM , PROM , scar mobilization. Pt demo understanding and agree to POC. Rehabilitation Potential: Good Anticipated Interventions Anticipated Interventions: A/AAROM/PROM, Strengthening, Scar Care, Triggerpoint Release, Modalities, Joint Protection/Energy Conservation, Education re assistive Equipment, Education re Diagnosis and Home Program Visit Plan Frequency: 1-2x /Week Duration: 4 Weeks General Plan: initiate light PROM scar mobilization US PRE on BTE TEXT: Thank you for the opportunity to evaluate your patient. For Medicare and Medicare HMO plans, please review the plan of care and approve it. It will need to be FAXED BACK to us at [phone] for Medicare purposes. Please let me know if there are questions or concerns regarding this plan of care. Physician Si gnature: Date:
== END 2023-09-03 19:00 | disposition home or self-care (01) ==
LOC: OT 10:48
PROVIDERS: PCP Family Medicine; Referring Provider Family Medicine; Visit Provider Family Medicine
DX: M65.321 Trigger finger, right index finger (principal)
CPT/HCPCS: 97035; 97166

== ENCOUNTER 2024-10-26 22:04 | Emergency (ER) | payer MEDICARE, SELFPAY ==
[2024-10-26 22:05] VITALS: BP 165/66; PULSE 83; RESP 28; TEMP 36; O2SAT 98; BMI 25.6
[2024-10-26 22:08] VITALS: BP 165/66; PULSE 92; RESP 33; TEMP 36; O2SAT 99
[2024-10-26] MEDS: Ondansetron 4 MG/2 ML Vial IV (22:42)
[2024-10-26] MEDS: 0.9% Normal Saline (1000mL) 1,000 ML 999 ML IV (22:43)
--- NOTE | 2024-10-26 22:45 | RAD_ITS ---
EXAM: XR CHEST, 1 VIEW CLINICAL INDICATION: dyspnea TECHNIQUE: Frontal view of the chest. COMPARISON: No relevant prior studies available. FINDINGS: LUNGS AND PLEURAL SPACES: Unremarkable. No consolidation or edema. No pneumothorax. No effusion. HEART: Unremarkable. Cardiac silhouette not enlarged. MEDIASTINUM: Central airways and mediastinal contour are unremarkable. BONES/JOINTS: Unremarkable. No acute fracture. SOFT TISSUES: Unremarkable. RAD/Chest 1 View (Portable) IMPRESSION: No radiographic evidence of acute cardiopulmonary disease. Electronically Signed: Naif Mota MD at 23:33 EST ,
--- NOTE | 2024-10-26 22:46 | EKG12_ITS ---
Test Reason : CP Blood Pressure : */* mmHG Vent. Rate : 68 BPM Atrial Rate : 68 BPM P-R Int : 142 ms QRS Dur : 88 ms QT Int : 430 ms P-R-T Axes : 75 75 54 degrees QTcB Int : 457 ms Normal sinus rhythm Normal ECG Confirmed by KOREY BARROSO, NAIN ([id number]), loan expeditor LORENA BISWAS ([id number]) on 10/27/2024 11:00:08 A M Referred By: MOE Confirmed By: NAIN NAIR MD
[2024-10-26] MEDS: Morphine 4 MG/ML Syringe IV (22:50)
[2024-10-26 22:51] LABS: Absolute Lymphocyte Count 1.55 X10^3/uL (0.83-4.51); Absolute Neutrophil Count 5.9 X10^3/uL (2.0-7.7); Basophil# 0.06 X10^3/uL; Basophil% 0.7 % (0-1); Eosinophil# 0.06 X10^3/uL; Eosinophils% 0.7 % (0-5); Hematocrit 48.4 % (40-54); Hemoglobin 16.4 g/dL (13.0-16.5); Lymphocyte # 1.55 X10^3/ul (0.83-4.51); Lymphocyte % 18.5 % (19-41); Mean Corp Hgb Conc 33.9 g/dL (32-36); Mean Corpuscular Hgb 29.9 pg (27.0-32.0); Mean Corpuscular Volume 88.2 fL (80-94); Mean Platelet Vol. 9.2 fl (6.2-12.0); Monocyte# 0.78 X10^3/uL; Monocyte% 9.3 % (0-10); NRBC Flagged by Analyzer 0 % (0-5); Neutrophil % 70.6 % (47-70); Platelet Count 224 K/mm3 (150-450); RBC Distribution Width CV 14.2 % (11.6-14.6); RBC Distribution Width SD 45.5 fl (35.1-43.9); Red Blood Count 5.49 M/mm3 (4.6-6.2); White Blood Count 8.4 K/mm3 (4.4-11.0)
--- NOTE | 2024-10-26 23:05 | EX.ED.DYSGE1 ---
HPI History of Present Illness Chief Complaint: Nausea/Vomiting/Diarrhea Informant: patient and spouse/S.O. Narrative Narrative: Patient is a 74-year-old male with past medical history of hypertension as well as abdominal aortic aneurysm that was repaired 1 year ago. He states that his was sick recently with nausea vomiting and diarrhea. He states he is also had multiple friends sick with similar symptoms. He states over the past 2 days he has had recurrent bouts of vomiting and diarrhea. He states that other than the known sick contacts there has been no recent antibiotic use or travel outside the country. He reports that his got better in a few days and therefore he was trying to write out his symptoms at home. However as time is progressed there is been no improvement and he is now having increased fatigue/weakness and shortness of breath and secondary to the worsening symptoms comes in for evaluation [facility] Medical History Wears glasses Wears partial dentures Wears dentures Alcohol use High cholesterol Back pain History of ulceration Gastric reflux Former smoker History of echocardiogram History of stress test History of trigger finger Hx of dislocation of shoulder Vertigo Hypertension Gout Esophagitis Erectile dysfunction Duodenitis without mention of hemorrhage CAD (coronary artery disease) AAA (abdominal aortic aneurysm) Home Medications ?Medication ?Instructions ?Recorded ?Last Taken ?Type Aspirin/Acetaminophen/Caffeine 1 tab PO PRN PRN Migraine Symptoms 01/24/17 Unknown History [Excedrin Extra Strength Caplet] meclizine 25 mg tablet 25 mg PO PRN PRN Vertigo 01/24/17 Unknown History metoprolol succinate 100 mg 100 mg PO DAILY 01/24/17 04/07/22 History tablet,extended release 24 hr allopurinol 100 mg tablet 100 mg PO DAILY 02/07/22 Unknown History atorvastatin 20 mg tablet 20 mg PO QHS 03/14/22 Unknown History lisinopril 40 mg tablet 40 mg PO DAILY 03/14/22 04/07/22 History pantoprazole 40 mg tablet,delayed 40 mg PO BID 03/14/22 04/07/22 History release amlodipine 2.5 mg tablet 2.5 mg PO DAILY 10/26/24 Unknown History amlodipine 5 mg tablet 5 mg PO DAILY 10/26/24 Unknown History dicyclomine 20 mg tablet 20 mg PO 4X/DAY PRN Abdominal 10/27/24 Unknown Rx bloating/spasm #28 tabs ondansetron 4 mg disintegrating 4 mg PO TID PRN nausea and 10/27/24 Unknown Rx tablet vomiting #21 tabs Allergy/AdvReac Type Severity Reaction Status Date / Time cefdinir AdvReac Nausea/Vom/ Verified 10/26/24 22:09 Diarrhea Family History Mother Colon cancer Liver Surgical History Hx of arthroscopic knee surgery Hx of colonoscopy Hx of esophagogastroduodenoscopy Hx of left knee surgery Hx of tonsillectomy Social History Smoking Status: Former smoker alcohol intake: current ROS ROS ED Constitutional Constitutional ED: Denies chills or fever(s) Eyes Eyes: Denies change in vision ENT ENT ED: Denies sore throat Cardiovascular Cardiovascular: Denies chest pain or palpitations Respiratory/Chest Respiratory/Chest: Reports dyspnea; Denies cough Gastrointestinal Gastrointestinal: Reports abdominal pain, diarrhea, nausea and vomiting Genitourinary Genitourinary ED: Denies dysuria or hematuria Musculoskeletal Musculoskeletal: Reports myalgias Integumentary Denies rash Neurologic Neurologic: Reports weakness; Denies headache(s) Hematologic/Lymphatic Hematologic/Lymphatic: Denies easy bleeding or easy bruising EXAM Physical Exam Const Vital Signs: 10/26/24 22:05 10/26/24 22:08 10/27/24 00:08 Temperature 96.8 F L 96.8 F L 98.2 F Temperature Source Axillary Axillary Oral Pulse Rate 83 92 74 Respiratory Rate 28 H 33 H 17 Blood Pressure 165/66 H 165/66 H 125/69 H Blood Pressure Mean 99 99 87 Pulse Ox 98 99 97 Oxygen Delivery Method Room Air 10/27/24 01:03 Temperature 98.1 F Temperature Source Pulse Rate 76 Respiratory Rate 16 Blood Pressure 138/67 H Blood Pressure Mean 90 Pulse Ox 94 Oxygen Delivery Method Positive well nourished and well developed General Appearance ED: well developed; Negative for pallor HEENT Reports dry mucous membranes HEENT Narrative: Mucous membranes are dry and tacky No tongue or lip swelling no oral lesions no airway edema or compromise No signs of infection noted in the posterior pharynx Mouth ED: Yes dry mucous membranes Mouth: dry mucous membranes Eyes PERRL and EOMs intact bilaterally General Eye ED: Negative for scleral icterus Neck supple and no JVD Neck Narrative: No nuchal rigidity or meningeal signs Resp Resp Narrative: Breath sounds are diminished throughout but overall clear to auscultation Tachypnea is noted but no nasal flaring or retractions or accessory muscle use. Cardio regular rate and regular rhythm Rate: other Other Details: No murmurs rubs or gallops noted Radial and carotid pulses are equal and symmetric GI non-tender, non-distended and no masses GI Narrative: Abdomen is soft nontender and nondistended with hyperactive bowel sounds. No voluntary guarding or rigidity or pulsatile mass Auscultation: hyperactive bowel sounds Palpation: soft Narrative: Rectal exam reveals no external hemorrhoid or anal fissure. Internal exam reveals no mass and stool is mucousy brown/yellow in color but Hemoccult positive Extremity normal to inspection Extremity Narrative: No asymmetric edema no pitting edema negative Homans' sign bilaterally Neuro oriented x3, CN's II-XII intact bilaterally and no sensory deficits noted Sensorium / Orientation: alert Motor Exam: strength 5/5 throughout Psych mental status grossly normal Skin no rashes or lesions noted and No skin turgor normal Skin Narrative: Skin turgor is increased consistent with dehydration General Skin Exam: Negative for jaundice or pallor MDM MDM MDM Narrative Medical decision making narrative: Patient arrived to the ER hypertensive and tachypneic. Symptoms of generalized abdominal discomfort with nausea vomiting diarrhea is most consistent with viral stomach infection such as norovirus or rotavirus. As he also complains of shortness of breath this could be related to potential aspiration pneumonia based on his recent bouts of vomiting versus contaminant infection such as RSV influenza or COVID. There is concern for acute kidney injury or severe electrolyte abnormality or pancreatitis based on his symptoms as well. The patient also reported that he initially had dark emesis which has since cleared but as he does have a history of gastric and duodenal ulcer there is concern he could have a upper GI bleed as a cause of his symptoms. Basic labs were obtained which show no signs of acute blood loss anemia acute kidney injury or severe electrolyte abnormality. X-ray does not show any signs of aspiration or pneumonia. The patient's viral swab is positive for RSV which would correlate with his shortness of breath sensation. His BUN is elevated at 28 and chart review reveals that is typically 13-15. Therefore this history of gastric ulcer report of initial dark-colored emesis I did feel the need to perform a CTA to check for potential cause of bleeding based on his elevated BUN. CTA revealed no acute findings. He is no longer had any bouts of dark emesis and his stool is not dark either. Therefore he most likely had a spontaneous rupture of a previous ulcer when symptoms began but has since healed as his diarrhea and emesis have now been normal in color. Therefore at this time we have a reason for the patient's shortness of breath with RSV after hydration he reports feeling better he has had no further bouts of nausea or vomiting and he is not hypoxic he is not hypotensive he is not anemic and I do not feel there is need for further evaluation at this time and patient is otherwise safe for discharge History & Record Review Discussion w/independent historian: Patient and Significant other Lab Data Attestation: I reviewed the patient's lab results. Labs: Laboratory Results - last 24 hr 10/26/24 10/26/24 22:12 22:37 WBC 8.4 RBC 5.49 Hgb 16.4 Hct 48.4 MCV 88.2 MCH 29.9 MCHC 33.9 RDW Std Deviation 45.5 H RDW Coeff of Nicole 14.2 Plt Count 224 MPV 9.2 Immature Gran % (Auto) 0.200 Neut % (Auto) 70.6 H Lymph % (Auto) 18.5 L Cedar % (Auto) 9.3 Eos % (Auto) 0.7 Baso % (Auto) 0.7 Absolute Neuts (auto) 5.9 Absolute Lymphs (auto) 1.55 Nucleated RBC % 0 Sodium 140 Potassium 4.0 Chloride 107 Carbon Dioxide 21.0 Anion Gap 12 BUN 28 H Creatinine 1.19 Estim Creat Clear Calc 50.15 Est GFR (MDRD) Af Amer 77 Est GFR (MDRD) Non-Af 63 BUN/Creatinine Ratio 23.5 H Glucose 93 Lactic Acid 2.3 H* Calcium 9.6 Total Bilirubin 0.70 Direct Bilirubin 0.20 AST 34 ALT 21 Alkaline Phosphatase 98 Total Protein 7.7 Albumin 3.9 Globulin 3.8 Lipase 50 Radiography Diagnostic Testing: Clinical Impression(s) from Imaging Studies Chest X-Ray 10/26/24 22:45 IMPRESSION: No radiographic evidence of acute cardiopulmonary disease. Electronically Signed: Naif Mota MD at 23:33 EST , Abdomen/Pelvis CTA 10/26/24 23:34 IMPRESSION: 1. No CTA evidence of active gastrointestinal hemorrhage or other acute abnormalities. Some causes of gastrointestinal bleeding can be occult on CTA. Consider further evaluation with endoscopy or nuclear medicine tagged RBC scan if clinically indicated. 2. Surgical repair of the previous infrarenal abdominal aortic aneurysm. No evidence of acute complication. Electronically Signed: Naif Mota MD at 0:35 EST , Chest x-ray as interpreted by the emergency medicine physician reveals no acute infiltrate pneumothorax or pleural effusion Discharge Plan Triage Chief Complaint: Nausea/Vomiting/Diarrhea ED Provider: Freddy Valle Dx/Rx/DC Orders Clinical Impression: Nausea vomiting and diarrhea, RSV infection, Dehydration, GERD (gastroesophageal reflux disease), Hypertension, Abdominal aortic aneurysm Instructions: Dehydration, RSV (Respiratory Syncytial Virus), ED Gastroenteritis, Viral (Adult) Prescriptions: New ondansetron 4 mg tablet,disintegrating 4 mg PO TID PRN (Reason: nausea and vomiting) Qty: 21 0RF dicyclomine 20 mg tablet 20 mg PO 4X/DAY PRN (Reason: Abdominal bloating/spasm) Qty: 28 0RF No Action allopurinol 100 mg tablet 100 mg PO DAILY atorvastatin 20 mg tablet 20 mg PO QHS lisinopril 40 mg tablet 40 mg PO DAILY Aspirin/Acetaminophen/Caffeine [Excedrin Extra Strength Caplet] 1 EACH tablet 1 tab PO PRN PRN (Reason: Migraine Symptoms) metoprolol succinate 100 MG tablet 100 mg PO DAILY meclizine 25 MG tablet 25 mg PO PRN PRN (Reason: Vertigo) pantoprazole 40 mg tablet,delayed release (DR/EC) 40 mg PO BID amlodipine 2.5 mg tablet 2.5 mg PO DAILY amlodipine 5 mg tablet 5 mg PO DAILY Primary Care Provider: Rush Foy Referrals: Rush Foy MD [Primary Care Provider] - Activity Restrictions/Additional Instructions: Please keep yourself well-hydrated and take the medication as directed to help control your symptoms. The viral stomach infection will last on average 3 days but could go as long as 7 to 10 days. Your RSV can persist anywhere from 1 to 3 weeks with the first week being the most severe symptoms. If you have any further concerns or worsening of symptoms please return to the ER for repeat evaluation Print Language: Belarusian Disposition Disposition: Home, Self Care
[2024-10-26 23:10] LABS: AST(SGOT) 34 U/L (15-37); Alanine Aminotransfer ALT/SGPT 21 U/L (16-61); Albumin, Serum 3.9 g/dL (3.2-5.0); Alkaline Phosphatase 98 U/L (45-117); Anion Gap 12 (5-15); BUN 28 mg/dL (7-18); BUN/Creat Ratio 23.5 RATIO (10-20); Calcium,Total 9.6 mg/dL (8.5-10.1); Chloride 107 mmol/L (98-107); Creatinine, Serum 1.19 mg/dL (0.70-1.30); EST Glomerular Filtration Rate 63 mL/min (>60); Est Glom Filt Rate - Afr Amer 77 mL/min (>60); Estimated Creatinine Clearance 50.15 ml/min; Globulin 3.8 g/dL (2.2-4.2); Glucose 93 mg/dL (74-106); Lipase 50 U/L (13-75); Protein, Total 7.7 g/dL (6.4-8.2); Sodium Level 140 mmol/L (136-145)
--- NOTE | 2024-10-26 23:34 | CT_ITS ---
EXAM: CT ANGIOGRAPHY ABDOMEN AND PELVIS WITHOUT AND WITH INTRAVENOUS CONTRAST CLINICAL INDICATION: GI bleed TECHNIQUE: Helically acquired angiography images were obtained of the abdomen and pelvis without and with intravenous contrast. This CT exam was performed using one or more of the following dose reduction techniques: automated exposure control, adjustment of the mA and/or kV according to patient size, and/or use of iterative reconstruction technique. MIP reconstructed images were created and reviewed. CONTRAST: IV 100mL [id number] RADIATION DOSE: CTDIvol = 30.16 mGy, DLP = 913.11 mGy-cm COMPARISON: CT abdomen pelvis 10/07/2022 FINDINGS: VASCULATURE: AORTA: Surgical repair of the previous infrarenal abdominal aortic aneurysm. No dissection. CELIAC TRUNK AND MESENTERIC ARTERIES: No acute findings. No occlusion or significant stenosis. No dissection. RENAL ARTERIES: No acute findings. No occlusion or significant stenosis. No dissection. ILIAC ARTERIES: No acute findings. No occlusion or significant stenosis. No dissection. LOWER THORAX: Unremarkable. Lung bases are clear. No cardiomegaly. No significant pericardial effusion. ABDOMEN: LIVER: Unremarkable. Homogeneous. No focal mass. GALLBLADDER AND BILE DUCTS: Unremarkable. No calcified gallstones. No gallbladder distention or wall edema. No intra- or extrahepatic biliary ductal dilation. PANCREAS: Unremarkable. No focal cystic or solid mass. SPLEEN: Unremarkable. Normal size without focal cystic or solid mass. ADRENALS: Unremarkable. No nodules. KIDNEYS AND URETERS: Simple right renal cyst. No follow-up imaging is recommended per consensus recommendations based on imaging criteria. Normal renal size and position. No hydronephrosis. STOMACH AND BOWEL: Diverticular disease of the colon but no diverticulitis. No stomach or bowel distention. PELVIS: APPENDIX: The appendix is normal. BLADDER: Unremarkable. REPRODUCTIVE: Unremarkable as visualized. No mass. ABDOMEN and PELVIS: INTRAPERITONEAL SPACE: Unremarkable. No ascites or other fluid collection. No free air. BONES/JOINTS: Degenerative changes of the spine. No suspicious lytic or blastic abnormality. SOFT TISSUES: Unremarkable. No discrete abdominal or pelvic wall hernia. LYMPH NODES: Unremarkable. No enlarged lymph nodes. CT/CTA Abd/Pelvis W/WO Contrast IMPRESSION: 1. No CTA evidence of active gastrointestinal hemorrhage or other acute abnormalities. Some causes of gastrointestinal bleeding can be occult on CTA. Consider further evaluation with endoscopy or nuclear medicine tagged RBC scan if clinically indicated. 2. Surgical repair of the previous infrarenal abdominal aortic aneurysm. No evidence of acute complication. Electronically Signed: Naif Mota MD at 0:35 EST ,
[2024-10-26 23:41] LABS: Lactic Acid 2.3 mmol/L (0.4-1.9)
[2024-10-27 00:08] VITALS: BP 125/69; PULSE 74; RESP 17; TEMP 36.8; O2SAT 97
[2024-10-27] MEDS: Pantoprazole Sodium 80 MG in 0.9% Normal Saline (50mL Bag) 15 ML 420 MG IV BOLUS (00:08)
[2024-10-27] MEDS: Pantoprazole Sodium 80 MG in 0.9% Normal Saline (100mL Bag) 80 ML 10 MG CONT INF (00:09)
[2024-10-27] MEDS: 0.9% Normal Saline (1000mL) 1,000 ML 999 ML IV (00:09)
[2024-10-27 01:03] VITALS: BP 138/67; PULSE 76; RESP 16; TEMP 36.7; O2SAT 94
[2024-10-27 02:46] LABS: Reflex Lactate? Y
== END 2024-10-27 01:31 | disposition home or self-care (01) ==
PROVIDERS: Emergency Provider Emergency Medicine; PCP Family Medicine; Visit Provider Emergency Medicine
DX: R11.2 Nausea with vomiting, unspecified (principal); B97.4 Respiratory syncytial virus as the cause of diseases classified elsewhere; E86.0 Dehydration; R19.7 Diarrhea, unspecified; R10.84 Generalized abdominal pain; I71.40 Abdominal aortic aneurysm, without rupture, unspecified; R06.02 Shortness of breath; I25.10 Atherosclerotic heart disease of native coronary artery without angina pectoris; I10 Essential (primary) hypertension; E78.00 Pure hypercholesterolemia, unspecified; K21.00 Gastro-esophageal reflux disease with esophagitis, without bleeding; Z79.82 Long term (current) use of aspirin; Z79.899 Other long term (current) drug therapy; Z87.891 Personal history of nicotine dependence
CPT/HCPCS: 71045; 74174; 80048; 80076; 82274; 83605; 83690; 85025; 87631; 93005; 96361; 96365; 96375; 99285; Q9967; A4216; J2405

== ENCOUNTER 2024-12-04 09:42 | Day surgery (SDC) | payer MEDICARE, SELFPAY ==
--- NOTE | 2024-11-28 10:51 | PAT.ANE_ITS ---
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 When Was Last Pacemaker Check QUESTION #4 FULL TEXT: You/Your Family Experience fever (hyperthermia) with Anesthesia Last Oral Intake Last Oral intake: Last Oral Intake NPO since Meds taken in AM with sips of water? 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 Has anyone observed you stop No 11/28/24 10:17 breathing during sleep? STOP Results Negative 11/28/24 10:17 QUESTION #5 FULL TEXT : Do you snore loudly (louder than talking or can be heard through closed doors)? 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 Specify any problems Hx of Preganancy in last 3 N/A 11/28/24 10:17 Months Nurse Filling Out Transfusion [facility] 11/28/24 10:17 & Questions: Date: 11/28/24 11/28/24 10:17 Time: 10:23 11/28/24 10:17 Patient unable to answer at this time (ie. confused, unrespo /Reproduction History /Reproductive History - mineral ore processing labourer: /Reproductive Hx- mineral ore processing labourer Hx Now No 11/28/24 10:17 Gestational Age (in weeks): EDC: Hx Hx Para Hx Section SAB No 04/06/22 09:19 [facility] Medical History (Updated 11/28/24 @ 10:22 by Joelle Thakkar) History of RSV infection Wears glasses Wears partial dentures Wears dentures Alcohol use High cholesterol Back pain History of ulceration Gastric reflux Former smoker History of echocardiogram History of stress test History of trigger finger Hx of dislocation of shoulder Vertigo Hypertension Gout Esophagitis Erectile dysfunction Duodenitis without mention of hemorrhage CAD (coronary artery disease) AAA (abdominal aortic aneurysm) Home Medications ?Medication ?Instructions ?Recorded ?Last Taken ?Type metoprolol succinate 100 mg 100 mg PO DAILY 01/24/17 0 04/07/22 History tablet,extended release 24 hr allopurinol 100 mg tablet 100 mg PO DAILY 02/07/22 Unk nown History atorvastatin 20 mg tablet 20 mg PO QHS 03/14/22 Unknow n History lisinopril 40 mg tablet 40 mg PO DAILY 03/14/22 07/0 10/29 History amlodipine 2.5 mg tablet 2.5 mg PO DAILY 10/26/24 Unk nown History amlodipine 5 mg tablet 5 mg PO DAILY 10/26/24 Unkno wn History aspirin 81 mg tablet,delayed 81 mg PO QDAY 11/19/24 Un known History release Allergy/AdvReac Type Severity Reaction Status Date / Time No Known Allergies Allergy Verified 11/28/24 10:15 Family History Mother Colon cancer Liver Father Myocardial infarction Heart disease Hypertension High cholesterol Sister Myocardial infarction Depression Respiratory disease Surgical History (Updated 11/28/24 @ 10:18 by Joelle Thakkar) History of shoulder surgery History of AAA (abdominal aortic aneurysm) repair Hx of left knee surgery Hx of arthroscopic knee surgery Hx of esophagogastroduodenoscopy Hx of colonoscopy Hx of tonsillectomy Social History Smoking Status: Former smoker alcohol intake: former substance use type: does not use what type of physical activity do you participate in: walking Audit: Pertinent Findings Pertinent Findings EKG Perinent findings: Normal sinus rhythm Normal ECG Additional pertinent findings: Normal CTA Recommendation Anesthesia Recommendation Anesthesia recommendation: OPTIMIZED for anesthesia (Optimized for procedure)
[2024-12-04] VITALS (9 sets, daily range): BP systolic 87–123; BP diastolic 60–67; PULSE 67–79; RESP 16–18; TEMP 36.2–36.6; O2SAT 93–98; BMI 25.7
--- NOTE | 2024-12-04 10:21 | PCM.PRE.AN2 ---
ASA Classification* ASA Classification ASA Classification: 2 Assessment & Plan Anesthesia* Anesthesia Assessment Anesthesia Assessment: Discussed sedation and/or anesthesia options, risks, benefits, and alternatives with patient/parents/legal guardian/POA. Questions invited. The patient/parents/legal guardian/POA seems to understand and agrees to proceed with anesthesia plan. Reviewed the physical assessment, medical history, allergy history and patient home medications list prior to surgery/procedure/anesthetic and documented any changes. Performed airway and anesthesia risk assessments. Anesthesia Type Anesthesia Type: MAC History Source History Obtained from:: Patient and Chart Anesthesia Focused Assessment* Temperature: 98 F Pulse Rate: 67 Blood Pressure: 123/67 Respiratory Rate: 17 Pulse Ox: 96 Oxygen Delivery Method: Room Air Airway Assessment Mouth opens: >3 cm Mallampati Score: III Teeth Condition: Dentures (Patient has full upper dentures. Partial lower dentures. Will be removed prior to his procedure) Neck Range of motion (ROM): Limited ROM (slight decrease in extension) Focused Labs Anesthesia Preop lab: CBC WBC 8.4 K/mm3 (4.4-11.0) 10/26/24 22:12 10/26/24 RBC 5.49 M/mm3 (4.6-6.2) 10/26/24 22:12 10/26/24 Hgb 16.4 g/dL (13.0-16.5) 10/26/24 22:12 10/26/24 Hct 48.4 % (40-54) 10/26/24 22:12 10/26/24 Plt Count 224 K/mm3 (150-450) 10/26/24 22:12 10/26/24 CHEMISTRY Potassium 4.0 mmol/L (3.5-5.1) 10/26/24 22:12 10/26/24 Sodium 140 mmol/L (136-145) 10/26/24 22:12 10/26/24 BUN 28 mg/dL (7-18) H 10/26/24 22:12 10/26/24 Creatinine 1.19 mg/dL (0.70-1.30) 10/26/24 22:12 10/26/24 Glucose 93 mg/dL (74-106) 10/26/24 22:12 10/26/24 TSH 0.29 uIU/mL (0.358-3.74) L 01/24/17 15:45 01/24/17 COAG Pre-Assessment Diagnosis/Proposed Procedure Planned Operative Procedure(s): EGD Anesthesia History 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 When Was Last Pacemaker Check QUESTION #4 FULL TEXT: You/Your Family Experience fever (hyperthermia) with Anesthesia Last Oral Intake Last Oral intake: Last Oral Intake NPO since 08:30 12/04/24 10:10 Meds taken in AM with sips of No 12/04/24 10:10 water? 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 Female No 11/28/24 10:17 HX of Motion Sickness No 11/28/24 10:17 HX of N/V After Surgery No 11/28/24 10:17 Non-Smoker Yes 11/28/24 10:17 Duration of Surgery greater No 11/28/24 10:17 than 60 minutes Number of Risk Factors 1 11/28/24 10:17 PONV Score Low Risk 11/28/24 10:17 Height & Weight Height & Weight: Anesthesia: Height & Weight Height 5 ft 7 in 12/04/24 10:10 Weight: 74.5 kg 12/04/24 10:10 Body Mass Index (BMI) 25.7 12/04/24 10:10 Respiratory Assessment Respiratory Assessment - 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 Has anyone observed you stop No 11/28/24 10:17 breathing during sleep? STOP Results Negative 11/28/24 10:17 QUESTION #5 FULL TEXT : Do you snore loudly (louder than talking or can be heard through closed doors)? 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 Specify any problems Hx of Preganancy in last 3 N/A 11/28/24 10:17 Months Nurse Filling Out Transfusion [facility] 11/28/24 10:17 & Questions: Date: 11/28/24 11/28/24 10:17 Time: 10:23 11/28/24 10:17 Patient unable to answer at this time (ie. 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: /Reproductive Hx- certified control systems technician Hx Now No 11/28/24 10:17 Gestational Age (in weeks): EDC: Hx Hx Para Hx Section SAB No 04/06/22 09:19 PFSH Medical History History of RSV infection Wears glasses Wears partial dentures Wears dentures Alcohol use High cholesterol Back pain History of ulceration Gastric reflux Former smoker History of echocardiogram History of stress test History of trigger finger Hx of dislocation of shoulder Vertigo Hypertension Gout Esophagitis Erectile dysfunction Duodenitis without mention of hemorrhage CAD (coronary artery disease) AAA (abdominal aortic aneurysm) Home Medications ?Medication ?Instructions ?Recorded ?Last Taken ?Type metoprolol succinate 100 mg 100 mg PO DAILY 01/24/17 12/03/24 History tablet,extended release 24 hr allopurinol 100 mg tablet 100 mg PO DAILY 02/07/22 12/03/24 History atorvastatin 20 mg tablet 20 mg PO QHS 03/14/22 12/03/24 History lisinopril 40 mg tablet 40 mg PO DAILY 03/14/22 12/03/24 History amlodipine 2.5 mg tablet 2.5 mg PO DAILY 10/26/24 12/03/24 History amlodipine 5 mg tablet 5 mg PO DAILY 10/26/24 12/03/24 History aspirin 81 mg tablet,delayed 81 mg PO QDAY 11/19/24 12/03/24 History release Allergy/AdvReac Type Severity Reaction Status Date / Time No Known Allergies Allergy Verified 12/04/24 10:09 Family History Mother Colon cancer Liver Father Myocardial infarction Heart disease Hypertension High cholesterol Sister Myocardial infarction Depression Respiratory disease Surgical History History of shoulder surgery History of AAA (abdominal aortic aneurysm) repair Hx of left knee surgery Hx of arthroscopic knee surgery Hx of esophagogastroduodenoscopy Hx of colonoscopy Hx of tonsillectomy Social History Smoking Status: Former smoker alcohol intake: former substance use type: does not use what type of physical activity do you participate in: walking Review of Systems (Anesthesia) ROS Narrative System reviewed and no additional complaints, except as documented.
--- NOTE | 2024-12-04 11:00 | IMM_PTH ---
PATIENT: JOÃO COX LOC: EN U#:[id number] AGE/SX: 74/M ROOM: RE12/04/[address]: Dr. Carlton Moran DO : 1950 BED: DIS: 12/04/2024 SPEC #: [id number] RECD: 12/04/24 13:53 STATUS: JOSEPH REQ #: [id number] DEB: 12/04/24 11:[address]: Carlton Moran DEPT: IMMUNOHISTOCHEMISTRY RECD BY: Derek Solis ENTERED: 12/04/24 13:54 SP TYPE: IMMUNO OTHR DR: Dr. Rush Foy MD Tissues: B - Gastric mucous membrane A - Esophagus, NOS Procedures: H Pylori (initial) P53 (initial) KI-67 (add) PHYSICIAN & INSTITUTION [place] [id number] SPECIMEN INFORMATION: Tissue Source: A- Distal esophagus biopsy B- Gastric body biopsy Clinical Info: GERD Specimen Number: [id number] A, B CPT code: 46092y2,18976 METHODOLOGY: Deparaffinized sections of prefer/formalin-fixed tissue or PAP/DQ stained slides are incubated with monoclonal/polyclonal antibodies/oligonucleotide probes. Localization is made via biotin free immunoperoxidase method. Appropriate controls are performed and reacted as expected. Results on target cell population are indicated in the following table: RESULTS: ANTIBODY / CLONE RESULT Block A P53 (DO-7) negative (null pattern) Ki-67 (30-9) positive, low Block B H Pylori (polyclonal) negative These tests were developed and their performance characteristics determined by [facility]. They may not have been cleared or approved by the U.S. Food and Drug Administration. The FDA has determined that such clearance or approval is not necessary. The above immunohistochemical/dualISH markers are ordered and reviewed by the Pathologist. INTERPRETATION: A. Distal esophagus, biopsy: Negative for dysplasia. B. Gastric body, biopsy: Negative for Helicobacter pylori organisms. 12/05/2024
--- NOTE | 2024-12-04 11:00 | EGD_PTH ---
PATIENT: JOÃO COX LOC: EN U#:[id number] AGE/SX: 74/M ROOM: RE12/04/[address]: Dr. Carlton Moran DO : 1950 BED: DIS: 12/04/2024 SPEC #: [id number] RECD: 12/04/24 13:40 STATUS: JOSEPH REReinier #: [id number] DEB: 12/04/24 11:[address]: Carlton Moran DEPT: SURGICAL PATHOLOGY RECD BY: John Taylor ENTERED: 12/04/24 14:11 SP TYPE: EGD BIOPSY NIKKIE DR: Dr. Rush Foy MD Tissues: A - Esophagus, NOS B - Gastric mucous membrane Procedures: Special Stain Group I Surgery Specimen Level IV Alcian Blue/PAS (control) HEADER OPERATION: EGD PRE-OP DIAGNOSIS: GERD TISSUE SUBMITTED: A- Distal esophagus biopsy, B- Gastric body biopsy MICROSCOPIC DIAGNOSIS A. 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 Acute and chronic inflammation. Negative for dysplasia. See comment. B. Gastric body, biopsy: Mild gastritis. See microscopic description and comment. 12/05/2024 COMMENT A. Alcian blue/PAS stain with matched control is used in the evaluation of the specimen. Immunohistochemistry ([id number]) for P53 and Ki-67 will be performed and results will be reported separately. B. The results of immunohistochemistry for Helicobacter pylori will be reported separately ([id number]). Please make reference to previous specimen [id number] distal esophagus, biopsy with diagnosis of fragments of gastroesophageal mucosa with focal intestinal metaplasia (goblet cell metaplasia), consistent with Workman's esophagus. MICROSCOPIC DESCRIPTION Slides are reviewed. B. The specimen shows fragments of gastric mucosa with chronic inflammatory cell infiltrates in the lamina propria consisting of lymphocytes and plasma cells, consistent with mild chronic gastritis. GROSS DESCRIPTION A. Received in fixative is one container labeled with the patient's name and designated Distal esophagus biopsy. The specimen consists of multiple irregular fragments of light [place] soft tissue that in aggregate measure 1.6 x 0.6 x 0.2 cm. The specimen is totally submitted in one cassette. Javier Received in fixative is one container labeled with the patient's name and designated Gastric body biopsy. The specimen consists of two irregular fragments of light [place]go soft tissue that in aggregate measure 0.8 x 0.5 x 0.2 cm. The specimen is totally submitted in one cassette. 12/04/2024 TC:3 CPT:80853e5,65359 ADDENDUM ADDENDUM ADDENDUM ADDENDUM ADDENDUM ADDENDUM ADDENDUM ADDENDUM ADDENDUM ADDENDUM 12/30/2024 11:58 ADDENDUM 12/30/2024 11:58 ADDENDUM 12/30/2024 11:58 ADDENDUM 12/30/2024 11:58 ADDENDUM 12/30/2024 11:58 CAST BIOSCIENCES - TISSUE CYPHER REPORT- BLOCK A RISK CLASS : LOW RISK SCORE: 0.0 5-YEAR PROBABILITY OF PROGRESSION: 0.20% Please see complete Gen Path Report in the patient's EMR
--- NOTE | 2024-12-04 11:31 | OP.EGD_ITS ---
Patient Name: Kris Cornell Procedure Date: 12/04/2024 10:33 AM Date of : 1950 Age: 74 Procedure: Upper GI endoscopy Indications: Dysphagia, Follow-up of Workman's esophagus Providers: Carlton Moran DO Referring MD: Rush Foy Medicines: Monitored Anesthesia Care Patient Profile: This is a 74 year old male. Refer to note in patient chart for documentation of history and physical. Patient has symptoms of chronic dysphagia and chronic heartburn. Complications: No immediate complications. Procedure: Pre-Anesthesia Assessment: - Prior to the procedure, a History and Physical was performed, and patient medications and allergies were reviewed. The patient is competent. The risks and benefits of the procedure and the sedation options and risks were discussed with the patient. All questions were answered and informed consent was obtained. Patient identification and proposed procedure were verified by the physician in the pre-procedure area. Mental Status Examination: alert and oriented. Airway Examination: normal oropharyngeal airway and neck mobility. Respiratory Examination: clear to auscultation. CV Examination: normal. ASA Grade Assessment: II - A patient with mild systemic disease. After reviewing the risks and benefits, the patient was deemed in satisfactory condition to undergo the procedure. The anesthesia plan was to use moderate sedation / analgesia (conscious sedation). Immediately prior to administration of medications, the patient was re-assessed for adequacy to receive sedatives. The heart rate, respiratory rate, oxygen saturations, blood pressure, adequacy of pulmonary ventilation, and response to care were monitored throughout the procedure. The physical status of the patient was re-assessed after the procedure. After obtaining informed consent, the endoscope was passed under direct vision. Throughout the procedure, the patient's blood pressure, pulse, and oxygen saturations were monitored continuously. The gastroscope was introduced through the mouth, and advanced to the duodenal bulb. The upper GI endoscopy was accomplished without difficulty. The patient tolerated the procedure well. Scope In: 11:14:55 AM Scope Out: 11:20:43 AM Total Procedure Duration Time 0 hours 5 minutes 48 seconds Findings: There were esophageal mucosal changes secondary to established long-segment Workman's disease present in the lower third of the esophagus. The maximum longitudinal extent of these mucosal changes was 4 cm in length. Mucosa was biopsied with a cold forceps for histology in a targeted manner at intervals of 1 cm in the lower third of the esophagus. One specimen bottle was sent to pathology. Verification of patient identification for the specimen was done. Estimated blood loss was minimal. LA Grade B (one or more mucosal breaks greater than 5 mm, not extending between the tops of two mucosal folds) esophagitis with no bleeding was found 34 to 39 cm from the incisors. A small hiatal hernia was present. Patchy mild inflammation characterized by erythema was found in the stomach. Biopsies were taken with a cold forceps for histology. Verification of patient identification for the specimen was done. Estimated blood loss was minimal. Biopsies were taken with a cold forceps for Helicobacter pylori testing. Verification of patient identification for the specimen was done. Estimated blood loss was minimal. Food (residue) was found in the duodenal bulb. Impression: - Esophageal mucosal changes secondary to established long-segment Workman's disease. Biopsied. - LA Grade B reflux esophagitis with no bleeding. - Small hiatal hernia. - Bile gastritis. Biopsied. - Retained food in the duodenum. Recommendation: - Discharge patient to home. - Resume previous diet. - Continue present medications. - Await pathology results. - Protonix 40 mg BID x 3 months - Gastric emptying study Procedure Code(s): --- Professional --- 63901, Esophagogastroduodenoscopy, flexible, transoral; with biopsy, single or multiple CPT copyright 2021 [employer]. All rights reserved. The codes documented in this report are preliminary and upon box office manager review may be revised to meet current compliance requirements. Carlton Moran DO 12/04/2024 11:30:55 AM This report has been signed electronically. Number of Addenda: 0 Note Initiated On: 12/04/2024 10:33 AM
--- NOTE | 2024-12-04 11:31 | OP.CCLET_ITS ---
12/04/2024 Rush Foy Re : Upper GI endoscopy procedure for Kris Cornell Niurkar Danii This procedure was performed on November. My impressions and recommendations are as follows: Impressions : - Esophageal mucosal changes secondary to established long-segment Workman's disease. Biopsied. - LA Grade B reflux esophagitis with no bleeding. - Small hiatal hernia. - Bile gastritis. Biopsied. - Retained food in the duodenum. Recommendations : - Discharge patient to home. - Resume previous diet. - Continue present medications. - Await pathology results. - Protonix 40 mg BID x 3 months - Gastric emptying study My findings are described in the full procedure note, which is enclosed. If I can be of further assistance, please feel free to contact me at . Sincerely, Carlton Moran, 12/04/2024 11:30:55 AM This report has been signed electronically.
--- NOTE | 2024-12-04 11:48 | PCM.HP.STD ---
HPI - General General Date of Admission: 12/04/24 Date of Service: 12/04/24 Chief Complaint: dysphagia and multani's esophagus HPI Narrative JOÃO COX, is a 74 M who presents for the evaluation of dysphagia and Multani's esophagus. Chief Complaint: more HB at night Details: JOÃO COX, is a 74 M who presents to the office today for EGD 04/07/2022 - Multani's w/o dysplasia, negative for H. pylori - Esophageal mucosal changes secondary to established long-segment Multani's disease. Biopsied. - Small hiatal hernia. - A small amount of a trichobezoar in the stomach. - Non-bleeding gastric ulcers with no stigmata of bleeding. Biopsied. - Retained food in the duodenum. Abdomen/Pelvis CTA 10/26/24 1. No CTA evidence of active gastrointestinal hemorrhage or other acute abnormalities. Some causes of gastrointestinal bleeding can be occult on CTA. Consider further evaluation with endoscopy or nuclear medicine tagged RBC scan if clinically indicated. 2. Surgical repair of the previous infrarenal abdominal aortic aneurysm. No evidence of acute complication. 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 COLON 2021 ([place]) normal per patient - repeat in 10 years - denies any family h/o colon CA - denies any change in bowel habits - denies any - does not eat within 4 hours of bed - c/o breakthrough HB throughout the day and reflux at HS - when laying on right side - denies any N/V - denies any weight loss - c/o early satiety No easy bleeding denum. He was seen in ED on 11/01/2024 with complaints of abdominal discomfort, N/V/D, SOB and reported dark emesis and was hypertensive and tachypneic (+RSV). HGB was normal at 16.4 and elevated BUN was likely secondary to MILDRED. He reports having a hard time sleeping at night due to reflux and HB throughout the day. He reports breakthrough symptoms have been more of an issue post aortic repair. Denies any dysphagia. He does c/o early satiety. He is not diabetic. He denies any emesis or weight loss. He will trial Rabeprazole 20mg once daily and discontinue pantoprazole. I have scheduled him for an EGD and he will follow-up post procedure. If EGD is negative for GOO and he has continued c/o early satiety will proceed with GES Patient Instructions: 1. Discontinue pantoprazole 40mg twice daily 2. Start Rabeprazole 20mg once daily, take every morning on an empty stomach 30 minutes before first meal 3. If you have breakthrough heartburn/reflux symptoms trial over the counter Pepcid Complete - chew two twice a day for breakthrough symptoms 4. Proceed with EGD 5. Follow-up in office 2-3 weeks post EGD 6. Call in 2 weeks with symptom update Plan Details Follow Up: [facility] Medical History History of RSV infection Wears glasses Wears partial dentures Wears dentures Alcohol use High cholesterol Back pain History of ulceration Gastric reflux Former smoker History of echocardiogram History of stress test History of trigger finger Hx of dislocation of shoulder Vertigo Hypertension Gout Esophagitis Erectile dysfunction Duodenitis without mention of hemorrhage CAD (coronary artery disease) AAA (abdominal aortic aneurysm) Home Medications ?Medication ?Instructions ?Recorded ?Last Taken ?Type metoprolol succinate 100 mg 100 mg PO DAILY 01/24/17 12/03/24 History tablet,extended release 24 hr allopurinol 100 mg tablet 100 mg PO DAILY 02/07/22 12/03/24 History atorvastatin 20 mg tablet 20 mg PO QHS 03/14/22 12/03/24 History lisinopril 40 mg tablet 40 mg PO DAILY 03/14/22 12/03/24 History amlodipine 2.5 mg tablet 2.5 mg PO DAILY 10/26/24 12/03/24 History amlodipine 5 mg tablet 5 mg PO DAILY 10/26/24 12/03/24 History aspirin 81 mg tablet,delayed 81 mg PO QDAY 11/19/24 12/03/24 History release pantoprazole 40 mg tablet,delayed 40 mg PO BID #60 tabs 12/04/24 Unknown Rx release Allergy/AdvReac Type Severity Reaction Status Date / Time No Known Allergies Allergy Verified 12/04/24 10:09 Family History Mother Colon cancer Liver Father Myocardial infarction Heart disease Hypertension High cholesterol Sister Myocardial infarction Depression Respiratory disease Surgical History History of shoulder surgery History of AAA (abdominal aortic aneurysm) repair Hx of left knee surgery Hx of arthroscopic knee surgery Hx of esophagogastroduodenoscopy Hx of colonoscopy Hx of tonsillectomy Social History Smoking Status: Former smoker alcohol intake: former substance use type: does not use what type of physical activity do you participate in: walking ROS Constitutional Constitutional: Denies fatigue, fever(s), poor appetite, weight gain or weight loss Gastrointestinal Gastrointestinal: Denies belching, bloating, change in bowel habits, change in stool character, chewing difficulty, coffee ground emesis, constipation, cramping, diarrhea, dyspepsia, dysphagia, early satiety, excessive flatus, fecal incontinence, heartburn, hematemesis, hematochezia, hemorrhoids, loose stools, melena, nausea, odynophagia, rectal bleeding, tenesmus, vomiting or weight changes Vital Signs Vital Signs Vital Signs: Weight Weight: 164 lb 3.91 oz Body Mass Index (BMI) 25.7 Physical Exam Const alert, oriented x3, no apparent distress and healthy appearing General Appearance: cooperative GI normal to inspection, nondistended, normoactive bowel sounds, soft to palpation, non-tender and non-distended Percussion: normal to percussion Rectal Exam: deferred Assessment & Plan Assessment/Plan (1) Multani's esophagus: QUALIFIERS: Multani's esophagus type: without dysplasia Qualified Code(s): K22.70 - Multani's esophagus without dysplasia (2) GERD (gastroesophageal reflux disease): QUALIFIERS: Esophagitis presence: without esophagitis Qualified Code(s): K21.9 - Gastro-esophageal reflux disease without esophagitis PLAN: Assessment and Plan Assessment and Plan (1) GERD (gastroesophageal reflux disease): Status: Acute Qualifiers: Esophagitis presence: without esophagitis Qualified Code(s): K21.9 - Gastro-esophageal reflux disease without esophagitis (2) Multani's esophagus: Status: Acute Qualifiers: Multani's esophagus type: without dysplasia Qualified Code(s): K22.70 - Multani's esophagus without dysplasia Medications: New rabeprazole 20 mg PO QDAY 30 tabs 0RF Discontinued pantoprazole Discontinued Reason: Order Changed 40 mg PO BID dicyclomine Discontinued Reason: Pt no longer taking 20 mg PO 4X/DAY PRN 28 tabs 0RF Abdominal bloating/spasm ondansetron Discontinued Reason: Pt no longer taking 4 mg PO TID PRN 21 tabs 0RF nausea and vomiting Plan 74y/o male presents for follow-up of GERD/Multani's. He was last seen by Virginia Nogueira NP April of 2022, his symptoms were well managed at that time on PPI BID. EGD was last performed 04/07/2022 and revealed Multani's without dysplasia and gastric ulcers (neg. H. pylori), small HH, trichobezoar, retained food in the duodenum. He underwent repair of abdominal aortic aneurysm 1-2 years ago which was causing extrinsic compression of the duo
--- NOTE | 2024-12-04 12:11 | PCM.POST.ANE ---
Anesthesia: Postop Eval I Current Vital Signs Temperature: 97.9 F Pulse Rate: 70 Blood Pressure: 99/62 Respiratory Rate: 16 Pulse Ox: 96 Oxygen Delivery Method: Room Air Assessment Airway patent: Yes Spontaneous unlabored respirations: Yes Mental status: Awake and Calm nausea: No Vomiting: No Anesthesia Complication: No Fluid Hydration Crystalloid volume administer (ml): 10 Total IV fluid infused: 10 Progress Note Anesthesia document: Postop Eval 1 completed: Yes
--- NOTE | 2024-12-04 12:12 | POSTOPAN2_ITS ---
Anesthesia Postop Eval I Sum Postop Eval Completion status Anesthesia document: Postop Eval 1 completed: Yes Anesthesia Postop Eval I Summary Anesthesia Postop Eval I Summary: Anesthesia Postop Eval I: Assessment Summary Airway patent Yes 12/04/24 12:12 INVENTORY COORDINATOR.[email or web address] Spontaneous unlabored Yes 12/04/24 12:12 INVENTORY COORDINATOR.GDOTT respirations Mental status Awake,Calm 12/04/24 12:12 INVENTORY COORDINATOR.GDOTT nausea No 12/04/24 12:12 INVENTORY COORDINATOR.GDOTT Vomiting No 12/04/24 12:12 INVENTORY COORDINATOR.GDOTT Anesthesia Postop Eval I: Fluid Summary Crystalloid volume administer 10 12/04/24 12:12 INVENTORY COORDINATOR.GDOTT (ml) Colloids volume administered ( ml) Blood Product volume administered (ml) Total IV fluid infused 10 12/04/24 12:12 INVENTORY COORDINATOR.GDOTT Anesthesia Postop Eval I: Summary Notes Anesthesia Complication No 12/04/24 12:12 INVENTORY COORDINATOR.GDOTT Anesthesia Complication Comment: Post-operative progress note Anesthesia: Postop Eval II Evaluation Mental status: Awake and Calm Pain Level: 0 nausea: No Vomiting: No Complications Anesthesia Complication: No
--- NOTE | 2024-12-04 12:12 | PCM.POSTANE2 ---
Anesthesia Postop Eval I Sum Postop Eval Completion status Anesthesia document: Postop Eval 1 completed: Yes Anesthesia Postop Eval I Summary Anesthesia Postop Eval I Summary: Anesthesia Postop Eval I: Assessment Summary Airway patent Yes 12/04/24 12:12 CARDIAC CATH LAB RADIOLOGY TECHNOLOGIST.[email or web address] Spontaneous unlabored Yes 12/04/24 12:12 CARDIAC CATH LAB RADIOLOGY TECHNOLOGIST.GDOTT respirations Mental status Awake,Calm 12/04/24 12:12 CARDIAC CATH LAB RADIOLOGY TECHNOLOGIST.GDOTT nausea No 12/04/24 12:12 CARDIAC CATH LAB RADIOLOGY TECHNOLOGIST.GDOTT Vomiting No 12/04/24 12:12 CARDIAC CATH LAB RADIOLOGY TECHNOLOGIST.GDOTT Anesthesia Postop Eval I: Fluid Summary Crystalloid volume administer 10 12/04/24 12:12 CARDIAC CATH LAB RADIOLOGY TECHNOLOGIST.GDOTT (ml) Colloids volume administered ( ml) Blood Product volume administered (ml) Total IV fluid infused 10 12/04/24 12:12 CARDIAC CATH LAB RADIOLOGY TECHNOLOGIST.GDOTT Anesthesia Postop Eval I: Summary Notes Anesthesia Complication No 12/04/24 12:12 CARDIAC CATH LAB RADIOLOGY TECHNOLOGIST.GDOTT Anesthesia Complication Comment: Post-operative progress note Anesthesia: Postop Eval II Evaluation Mental status: Awake and Calm Pain Level: 0 nausea: No Vomiting: No Complications Anesthesia Complication: No
--- NOTE | 2024-12-04 12:34 | PCM.POST.ANE ---
Anesthesia: Postop Eval I Current Vital Signs Temperature: 97.9 F Pulse Rate: 70 Blood Pressure: 99/62 Respiratory Rate: 16 Pulse Ox: 98 Oxygen Delivery Method: Room Air Assessment Airway patent: Yes Spontaneous unlabored respirations: Yes Mental status: Awake and Calm nausea: No Vomiting: No Anesthesia Complication: No Fluid Hydration Crystalloid volume administer (ml): 30 Total IV fluid infused: 30 Progress Note Anesthesia document: Postop Eval 1 completed: Yes
== END 2024-12-04 12:45 | disposition home or self-care (01) ==
LOC: EN 09:50 → AC 09:51
PROVIDERS: PCP Family Medicine; Referring Provider Family Medicine; Visit Provider Internal Medicine Gastroenterology
PROC: 0DJ08ZZ Inspection of Upper Intestinal Tract, Via Natural or Artificial Opening Endoscopic (ICD-10-PCS; CPT 43235; principal; 2024-12-04 10:55)
DX: K22.70 Barrett's esophagus without dysplasia (principal); R13.10 Dysphagia, unspecified; K29.70 Gastritis, unspecified, without bleeding; K25.9 Gastric ulcer, unspecified as acute or chronic, without hemorrhage or perforation; K44.9 Diaphragmatic hernia without obstruction or gangrene; R68.81 Early satiety; I10 Essential (primary) hypertension; I25.10 Atherosclerotic heart disease of native coronary artery without angina pectoris; E78.00 Pure hypercholesterolemia, unspecified; Z87.891 Personal history of nicotine dependence; Z80.0 Family history of malignant neoplasm of digestive organs
CPT/HCPCS: 43239; 88305; 88312; 88341; 88342; A4216

== ENCOUNTER → 2025-01-19 | Outpatient (CLI) | payer MEDICARE, SELFPAY ==
--- NOTE | 2025-01-19 08:55 | NM_ITS ---
PROCEDURE: GASTRIC EMPTYING STUDY - 4 HR 01/19/2025 REASON FOR EXAM: EARLY SATIETY, HB COMPARISON: None. TECHNIQUE: The patient ingested a standard meal of sulfur colloid with 2 pieces of bread as well as butter, and water. postprandially. Anterior and posterior planar images of the upper abdomen were obtained for 1 minute immediately following the meal at 1h, 2h and 4h if more than 10% of the activity persisted within the stomach. Regions of interest were drawn, and a geometric mean was used to calculate a [id number]. RADIOPHARMACEUTICAL: 1.1 mCi of technetium labeled sulfur colloid. FINDINGS: Percent activity remaining in stomach: 1 hour 3 % (normal 37-90%) 2 hours: 37 % (normal 30-60%) 4 hours: 76 % (normal 0-10%) NM/Gastric Emptying Study - 4 HR IMPRESSION: Normal gastric emptying. Reading Location: [place] [id number]
== END | disposition home or self-care (01) ==
LOC: NM 08:54
PROVIDERS: PCP Family Medicine; Referring Provider Nurse Practitioner Acute Care; Visit Provider Nurse Practitioner Acute Care
DX: K22.70 Barrett's esophagus without dysplasia (principal); R68.81 Early satiety
CPT/HCPCS: 78264; A9541

== ENCOUNTER 2025-04-04 07:16 | Emergency (ER) | payer MEDICARE, SELFPAY ==
[2025-04-04 07:17] VITALS: BP 155/76; PULSE 71; RESP 16; TEMP 37; O2SAT 99; BMI 25.7
--- NOTE | 2025-04-04 07:27 | EX.ED.UPPERE ---
HPI History of Present Illness HPI Narrative: Patient presents with left arm pain that began yesterday. Patient states he was helping somebody move furniture. Patient states the furniture started to slip and he felt pain in his left bicep. Patient describes it as burning. Patient states it radiates into his forearm. Patient states it is worse with movement. Patient denies any paresthesias or weakness. Patient states nothing seems to help with the pain. Patient denies any other injuries. Chief Complaint: Upper Extremity Injury Informant: patient Occured/Mechanism Comment: Lifting Onset/Context/Timing Onset: Yesterday Context: Sudden Onset Timing: Continuous Quality of Pain: Burning Location: Left bicep and elbow area Worsened by: Certain movements Relieved by: Nothing Associated Symptoms Associated Symptoms: Negative for Parasthesia, Weakness or Loss of Funtion [facility] Medical History History of RSV infection Wears glasses Wears partial dentures Wears dentures Alcohol use High cholesterol Back pain History of ulceration Gastric reflux Former smoker History of echocardiogram History of stress test History of trigger finger Hx of dislocation of shoulder Vertigo Hypertension Gout Esophagitis Erectile dysfunction Duodenitis without mention of hemorrhage CAD (coronary artery disease) AAA (abdominal aortic aneurysm) Home Medications ?Medication ?Instructions ?Recorded ?Last Taken ?Type metoprolol succinate 100 mg 100 mg PO DAILY 01/24/17 12/03/24 History tablet,extended release 24 hr allopurinol 100 mg tablet 100 mg PO DAILY 02/07/22 12/03/24 History atorvastatin 20 mg tablet 20 mg PO QHS 03/14/22 12/03/24 History lisinopril 40 mg tablet 40 mg PO DAILY 03/14/22 12/03/24 History amlodipine 2.5 mg tablet 2.5 mg PO DAILY 10/26/24 12/03/24 History amlodipine 5 mg tablet 5 mg PO DAILY 10/26/24 12/03/24 History aspirin 81 mg tablet,delayed 81 mg PO QDAY 11/19/24 12/03/24 History release pantoprazole 40 mg tablet,delayed 40 mg PO BID #60 tabs 12/04/24 Unknown Rx release hydrocodone-acetaminophen 5-325mg 1 tab PO Q6H PRN PRN Pain 3 days 04/04/25 Unknown Rx 5mg-325mg #10 TABLETS Allergy/AdvReac Type Severity Reaction Status Date / Time No Known Allergies Allergy Verified 12/16/24 13:28 Family History Mother Colon cancer Liver Father Myocardial infarction Heart disease Hypertension High cholesterol Sister Myocardial infarction Depression Respiratory disease Surgical History History of shoulder surgery History of AAA (abdominal aortic aneurysm) repair Hx of left knee surgery Hx of arthroscopic knee surgery Hx of esophagogastroduodenoscopy Hx of colonoscopy Hx of tonsillectomy Social History Smoking Status: Former smoker alcohol intake: former substance use type: does not use what type of physical activity do you participate in: walking ROS ROS ED Constitutional Constitutional ED: Denies chills or fever(s) Eyes Eyes: Denies blurry vision or change in vision ENT ENT ED: Denies rhinorrhea or sore throat Cardiovascular Cardiovascular: Denies chest pain or palpitations Respiratory/Chest Respiratory/Chest: Denies cough or dyspnea Gastrointestinal Gastrointestinal: Denies nausea or vomiting Genitourinary Genitourinary ED: Denies dysuria or hematuria Musculoskeletal Musculoskeletal: Denies back pain or neck pain Integumentary Denies abscess or rash Neurologic Neurologic: Denies headache(s) or weakness Allergic/Immunologic Allergic/Immunologic ED: Denies mouth swelling or urticaria EXAM Physical Exam Const Vital Signs: 04/04/25 07:17 Temperature 98.6 F Temperature Source Oral Pulse Rate 71 Respiratory Rate 16 Blood Pressure 155/76 H Blood Pressure Mean 102 Pulse Ox 99 Oxygen Delivery Method Room Air Positive well nourished and well developed General Appearance ED: well developed and NAD HEENT Reports moist mucous membranes normocephalic and atraumatic Neck full ROM and supple Extremity Extremity Narrative: There is tenderness and edema over the distal bicep and bicep tendon. There is no ecchymosis noted. There is no palpable step-off. Range of motion was slightly limited incomplete extension and supination of the left elbow secondary to pain. There is no bony crepitance or step-off. There is no deformity noted. Strength is 5/5 in the radial, median, and ulnar areas. Sensation was intact to light touch in the radial, median, and ulnar areas. Radial pulses are equal bilaterally. Neuro oriented x3, CN's II-XII intact bilaterally, moves all extremities, no focal motor deficits and no sensory deficits noted Sensorium / Orientation: alert Motor Exam: strength 5/5 throughout Psych mental status grossly normal MDM MDM MDM Narrative Medical decision making narrative: Patient was advised that this is most likely a muscle strain or possibly a tendon strain. Patient was advised that x-rays would not be helpful. Patient was given a sling for comfort. Patient was instructed to ice and elevate the left arm. Patient was given a prescription for short course of [place]. Patient was instructed to follow-up with his primary care physician in 5 to 7 days. Patient was also given a referral for orthopedics. Patient was instructed to return if worse in any way. Patient understood and was agreeable with the plan. All questions were answered. Discharge Plan Triage Chief Complaint: Upper Extremity Injury ED Provider: Yoseph Patricio Dx/Rx/DC Orders Clinical Impression: Strain of left biceps muscle, Strain of left biceps tendon Instructions: ED Muscle Strain, Extremity Prescriptions: New hydrocodone-acetaminophen 5-325 mg tablet 1 tab PO Q6H PRN PRN (Reason: Pain) 3 Days Qty: 10 0RF No Action allopurinol 100 mg tablet 100 mg PO DAILY atorvastatin 20 mg tablet 20 mg PO QHS lisinopril 40 mg tablet 40 mg PO DAILY aspirin 81 mg tablet,delayed release (DR/EC) 81 mg PO QDAY metoprolol succinate 100 MG tablet 100 mg PO DAILY amlodipine 2.5 mg tablet 2.5 mg PO DAILY amlodipine 5 mg tablet 5 mg PO DAILY pantoprazole 40 mg tablet,delayed release (DR/EC) 40 mg PO BID Qty: 60 9RF Primary Care Provider: Rush Foy Referrals: Rush Foy MD [Primary Care Provider] - 5-7 Days Luis Elliott MD [Med Staff - Active Staff] - 3-5 Days Print Language: Bhutanese Disposition Disposition: Home, Self Care
--- OUTSIDE RECORDS SUMMARY | 2025-04-04 08:05 | XMS RPT_ITS | CCD ---
Author Organization [facility] Care Team Providers Care Recep Name Role Phone Che Arora Unavailable Unavailable Samuel Foy Unavailable Unavailab Samuel Barillas Unavailable Unavailable Unavailable Samuel Foy MD Primary Care Provider Dr. Rush Foy Primary Care Provider [phone] Dr. Rush Foy Referring Provider Jero INPATIENT AUDITOR, INPATIENT AUDITOR-C Virginia Avendano Attending Provider [phone] Friend, Dr. Vincent Attending Provider FriendDr. Vincent Other Provider Samuel oFy MD Primary Care Provider Samuel Foy MD Primary Care Provider CATHI CHIN Referring Unavailable CATHI CHIN Attending Unavailable Samuel Foy MD Primary Care Provider PROVIDER, UNKNOWN Referring Unavailable SAMUEL FOY Primary Care Unavailab le PROVIDER, UNKNOWN Referring Unavailable SAMUEL FOY Primary Care Unavailab SAMUEL Barillas Primary Care Unavailab NAIF Arrington Attending Unavailable NAIF GRAVES Admitting Unavailable Samuel Foy MD Primary Care Provider Podlogar HVAC ESTIMATOR.Melanie WYLIE Unavailable Sanjay HVAC ESTIMATOR.Lelo WYLIE Unavailable BURSLEY, CHRISTOPHER B Referring Unavailab le BURSLEY, CHRISTOPHER B Primary Care Unavailab le BURSLEY, CHRISTOPHER B Primary Care Unavailab le BURSLEY, SARAH BETHOPHER B Attending Unavailab le BURSLEY, CHRISTOPHER B Primary Care Unavailab le ABGANESH OTOOLE Referring Unavailable BURSLEY, CHRISTOPHER B Primary Care Unavailab le BURSLEY, CHRISTOPHER B Primary Care Unavailab le HERRERA, ANA Referring Unavailable BURSLEY, CHRISTOPHER B Primary Care Unavailab le BURSLEY, CHRISTOPHER B Primary Care Unavailab le BURSLEY, CHRISTOPHER B Attending Unavailab le BURSLEY, CHRISTOPHER B Primary Care Unavailab le STEENBERGE, NAIF Attending Unavailable STEENBERGENAIF Referring Unavailable BURSLEY, CHRISTOPHER B Referring Unavailab le BURSLEY, CHRISTOPHER B Primary Care Unavailab le BURSLEY, CHRISTOPHER B Attending Unavailab le BURSLEY, CHRISTOPHER B Primary Care Unavailab le BURSLEY, CHRISTOPHER B Primary Care Unavailab le STEENBERGENAIF Referring Unavailable PATRICIALEY, SARAH BETHOPHER B Primary Care Unavailab le STEENBERGENAIF Referring Unavailable PODLOGMELANIE MAURICIO Referring Unavailable BURSLEY, SARAH BETHOPHER B Primary Care Unavailab le BURSLEY, CHRISTOPHER B Primary Care Unavailab le PODLOGARMELANIE Attending Unavailable Danii BARROSO, Dr. Beverly Primary Care Provider Dr. Freddy Valle DO Attending Provider [phone] Freddy Valle DO Emergency Provider Danii BARROSO, Dr. Beverly Referring Provider [phone] Marlene Snow Attending Provider Dr. Carlton Moran DO Attending Provider Dr. Carlton Moran DO Referring Provider Marlene Snow Referring Provider Carlton Moran Attending Unavailable Carlton Moran Referring Unavailable Danii, Rush Primary Care Unavailable Bursley, Rush Primary Care Unavailable Freddy Valle Attending Unavailable Patricialey, Rush Primary Care Unavailable Bursley, Rush Referring Unavailable Marlene Nobles Attending Unavailable Rush Foy Referring Unavailable Rush Foy Primary Care Unavailable Marleen Nobles Attending Unavailable Rush Foy Referring Unavailable Carlton Moran Attending Unavailable Rush Foy Primary Care Unavailable Rush Foy Primary Care Unavailable Marlene Nobles Attending Unavailable Marlene Nobles Referring Unavailable Allergies Allergy Classification Reported Allergen(s) Allergy Type Date of Onset Reaction(s) Facility Cephalosporins (antibiotic) (1 source) cefdinir; Translations: [cefdinir] Drug Allergy [facility] candice [facility] Work Phone: (7 sources) cefdinir; Translations: [cefdinir] Drug Allergy 10-07-2022 Nausea/Vom/Diar [facility] Medications Current Medications Medication Drug Class(es) Dates Sig (Normalized) Sig (Original) acetaminophen 325 mg oral tablet (20 sources) Start: 09-10-2023 take 1 tablet by mouth every four hours as needed acetaminophen (TYLENOL) 325 mg tablet Take 1 tablet by mouth every 4 hours as needed for pain. 09/10/2023 Active Comment on above: Take 1 tablet by minoo th every 4 hours as needed for pain. allopurinol 100 mg oral tablet (20 sources) Xanthine Oxidase Inhibitor Start: 11-12-2023 End: 05-10-2025 take 2 tablets by mouth once daily allopurinol (ZYLOPRIM) 100 mg tablet Indications: Gout, unspecified cause, unspecified chronicity, unspecified site Take 2 tablets by mouth once daily. For gout. 180 tablet 1 11/11/2024 05/10/2025 Active Start: 02-05-2023 End: 10-27-2023 take 2 tablets by mouth once daily allopurinol (ZYLOPRIM) 100 mg tablet Indications: Gout, unspecified cause, unspecified chronicity, unspecified site Take 2 tablets by mouth once daily. For gout. 180 tablet 1 04/30/2023 10/27/2023 Active Start: 03-21-2022 End: 01-31-2023 take 2 tablets by mouth once daily allopurinol (ZYLOPRIM) 100 mg tablet Indications: Gout, unspecified cause, unspecified chronicity, unspecified site Take 2 tablets by mouth once daily. For gout. 180 tablet 1 08/04/2022 01/31/2023 Active Start: 12-19-2021 End: 03-21-2022 take 1 tablet by mouth once daily Allopurinol 100 mg tablet Active 100 mg PO DAILY February 07, 2022 12:00am Start: 07-10-2019 End: 12-17-2021 take 1 tablet by mouth once daily allopurinol (ZYLOPRIM) 100 mg tablet Indications: Gout, unspecified cause, unspecified chronicity, unspecified site Take 1 tablet by mouth once daily. For gout. 30 tablet 11 03/04/2021 12/17/2021 Discontinued Comment on above: Take 1 tablet by minoo once daily. For gout. Take 2 tablets by mo [facility] [place] once daily. For gout. amLODIPine 2.5 mg oral tablet (20 sources) Dihydropyridine Calcium Channel Aditya Start: End: take 1 tablet by mouth once daily amLODIPine (NORVASC) 5 mg tablet Take 1 tablet by mouth once daily. 90 tablet 1 02/24/2025 08/23/2025 Active Start: 06-19-2022 End: 03-03-2025 amLODIPine (NORVASC) 2.5 mg tablet Take one tablet daily along with 5 mg tablet 90 tablet 1 03/03/2025 Active Start: 06-07-2022 End: 12-27-2023 take 1 tablet by mouth once daily amLODIPine (NORVASC) 5 mg tablet Take 1 tablet by mouth once daily. 90 tablet 1 06/30/2023 12/27/2023 Active Comment on above: Take 1 tablet by minoo once daily. Take one tablet justina y along with 5 mg tablet aspirin 81 mg delayed release oral tablet (20 sources) Platelet Aggregation Inhibitor, Nonsteroidal Anti-inflammatory Drug Start: 11-19-2024 take 1 tablet by mouth once daily Aspirin 81 mg tablet,delayed release (DR/EC) Active 81 mg PO daily November 19, 2024 1:00am Start: 09-11-2023 End: 10-11-2023 take 1 tablet by mouth once daily aspirin 81 mg chewable tablet Take 1 tablet by mouth once daily. 09/11/2023 Active Start: 07-10-2019 End: 05-04-2022 take 1 tablet by mouth once daily Aspirin 81 MG Oral Tablet Delayed Release take 1 tablet by mouth once daily Quantity: 0 Refills: 0 Ordered: 10-Jul-2019 DO Start : 10-Jul-2019 Active Comment on above: Take 81 mg by mouth once daily. Take 1 tablet by minoo th once daily. atorvastatin 20 mg oral tablet (20 sources) HMG-CoA Reductase Inhibitor Start: 07-10-20 End: 02-14-20 take 1 tablet by mouth once daily for hyperlipidemia atorvastatin (LIPITOR) 20 mg tablet Take 1 tablet by mouth once daily. For cholesterol 90 tablet 1 02/13/2025 Active Start: 01-24-2017 End: 03-14-2022 take 1 tablet by mouth at bedtime Atorvastatin 10 MG tablet Discontinued 10 mg PO AT BEDTIME January 24, 2017 12:00am March 14, 2022 2:52pm Comment on above: Take 1 tablet by minoo th once daily. For cholesterol azithromycin 500 mg oral tablet (7 sources) Macrolide Antimicrobial Start: 07-03-20 End: 07-06-20 take 1 tablet by mouth once daily azithromycin (ZITHROMAX) 500 mg tablet Take 1 tablet by mouth once daily for 3 days. 3 tablet 07/03/2024 07/06/2024 Active Start: 01-24-2017 End: 03-14-2022 take 1 tablet by mouth once daily Azithromycin (Zithromax) 250 MG tablet Discontinued 250 mg PO DAILY 4 January 24, 2017 12:00am March 14, 2022 2:52pm colchicine 0.6 mg oral table t (20 sources) Start: 12-11-2022 End: 05-30-2023 colchicine 0.6 mg tablet Indications: 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 Take 2 tabs by mouth, followed by 1 tab one hour later for gout flare. May repeat in 1 week. 6 tablet 05/30/2023 Active Start: 06-05-2022 End: 12-08-2022 colchicine 0.6 mg tablet Ind ications: 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 Take 2 tabs by mouth, followed by 1 tab one hour later for gout flare. May repeat in 1 week. 6 tablet 0 06/05/2022 12/08/2022 Discontinued Start: 03-21-2022 End: 06-03-2022 colchicine 0.6 mg tablet Ind ications: 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 Take 2 tabs by mouth, followed by 1 tab one hour later for gout flare. May repeat in 1 week. 6 tablet 0 04/07/2022 06/03/2022 Discontinued Comment on above: Take 2 tabs by mouth , followed by 1 tab one hour later for gout flare. May repeat in 1 week. enteric contrast (will be provided with radiology test) (1 source) Start: 01-10-20 End: 01-11-20 enteric contrast (will be provided with radiology test) For CT ABD/PEL W IVCON Routine order Administer, As Directed One Time Only, via Oral, Rectal, both Oral and Rectal, Enteric Tube, Stoma or Indwelling Catheter, Enteric Contrast as designated per enteric contrast guidelines 1 Each 0 01/09/2022 01/10/2022 Active Comment on above: For CT ABD/PEL W IVC ON Routine order Administer, As Directed One Time Only, via Oral, Rectal, both Oral and Rectal, Enteric Tube, Stoma or Indwelling Catheter, Enteric Contrast as designated per enteric contrast guidelines iv contrast (will be provided with radiology test) (4 sources) Start: 08-22-20 End: 08-23-20 inject 1 dose intravenously once iv contrast (will be provided with radiology test) CTA ABD/PEL - No IV access, insert saline lock prior to the sedation, infusion, injection for imaging exam. Discontinue saline lock post exam. If Pt. has a central line or IVAD, may access for administration according to line specific nursing protocol. Once exam is complete flush line and de-access according to line specific nursing protocol in the CT contrast administration guidelines link. 1 Each 08/22/2024 08/23/2024 Active Start: 01-16-2023 End: 01-17-2023 inject 1 dose intravenously once iv contrast (will be provided with radiology test) Indications: Abdominal aortic aneurysm (AAA) without rupture, unspecified part (HCC) CTA CHEST (NONGATED) ABD/PEL WO/W IVCON - No IV access, insert saline lock prior to the sedation, infusion, injection for imaging exam. Discontinue saline lock post exam. If Pt. has a central line or IVAD, may access for administration according to line specific nursing protocol. Once exam is complete flush line and de-access according to line specific nursing protocol in the CT contrast administration guidelines link. 1 Each 0 01/16/2023 01/17/2023 Active Start: 07-18-2022 End: 07-19-2022 inject 1 dose intravenously once iv contrast (will be provided with radiology test) CTA ABD/PEL - No IV access, insert saline lock prior to the sedation, infusion, injection for imaging exam. Discontinue saline lock post exam. If Pt. has a central line or IVAD, may access for administration according to line specific nursing protocol. Once exam is complete flush line and de-access according to line specific nursing protocol in the CT contrast administration guidelines link. 1 Each 0 07/18/2022 07/19/2022 Start: 01-09-2022 End: 01-10-2022 iv contrast (will be provide d with radiology test) CT ABD/PEL -Inject, intravenously, once for 1 dose.No IV access, insert saline lock prior to the beginning of sedation, infusion, injection of imaging exam. Discontinue saline lock post exam. If Pt. has a central line or IVAD, may access for administration according to line specific nursing protocol. Once exam is complete flush line and de-access according to line specific nursing protocol in the CT contrast administration guidelines link. 1 Each 0 01/09/2022 01/10/2022 Active Comment on above: CT ABD/PEL -Inject, intravenously, once for 1 dose.No IV access, insert saline lock prior to the beginning of sedation, infusion, injection of imaging exam. Discontinue saline lock post exam. If Pt. has a central line or IVAD, may access for administration according to line specific nursing protocol. Once exam is complete flush line and de-access according to line specific nursing protocol in the CT contrast administration guidelines link. CTA ABD/PEL - No IV access, insert saline lock prior to the sedation, infusion, injection for imaging exam. Discontinue saline lock post exam. If Pt. has a central line or IVAD, may access for administration according to line specific nursing protocol. Once exam is complete flush line and de-access according to line specific nursing protocol in the CT contrast administration guidelines link. CTA CHEST (NONGATED) ABD/PEL WO/W IVCON - No IV access, insert saline lock prior to the sedation, infusion, injection for imaging exam. Discontinue saline lock post exam. If Pt. has a central line or IVAD, may access for administration according to line specific nursing protocol. Once exam is complete flush line and de-access according to line specific nursing protocol in the CT contrast administration guidelines link. lisinopril 40 mg oral tablet (20 sources) Angiotensin Converting Enzyme Inhibitor Start: End: take 1 tablet by mouth once daily lisinopril (ZESTRIL) 40 mg tablet Indications: Essential hypertension Take 1 tablet by mouth once daily. 90 tablet 1 03/03/2025 Active Start: 07-10-2019 take 1 tablet by minoo th once daily Lisinopril 30 MG Oral Tablet TAKE 1 TABLET ONCE DAILY. Quantity: 0 Refills: 0 Ordered: 10-Jul-2019 DO Start : 10-Jul-2019 Active Start: 01-24-2017 End: 03-14-2022 take 1 tablet by mouth once daily Lisinopril (Zestril) 20 MG tablet Discontinued 20 mg PO DAILY January 24, 2017 12:00am March 14, 2022 2:52pm Comment on above: Take 1 tablet by minoo once daily. meclizine hydrochloride 25 mg oral tablet (20 sources) Antiemetic Start: 07-10-2019 Meclizine HCl - 25 MG Oral Tablet Quantity: 0 Refills: 0 Ordered: 10-Jul-2019 DO Start : 10-Jul-2019 Active Start: 01-24-2017 End: 11-19-2024 take 1 tablet by mouth every twelve hours as needed meclizine (ANTIVERT) 25 mg tab Take 1 tablet by mouth twice daily as needed. TAKE 1 TABLET BY MOUTH NEEDED. USES FOR TRAVELING ONLY. 20 tablet 1 06/09/2020 Active Comment on above: Take 1 tablet by minoo th twice daily as needed. TAKE 1 TABLET BY MOUTH NEEDED. USES FOR TRAVELING ONLY. 24 hr metoprolol succinate 100 mg extended release oral tablet (20 sources) beta-Adrenergic Aditay Start: 10-27-2024 take 1 tablet by mouth once daily metoprolol succinate ER (TOPROL XL) 100 mg Take 1 tablet by mouth once daily. 90 tablet 1 10/27/2024 Active Start: 01-24-2017 End: 10-25-2024 take 1 tablet by mouth once daily metoprolol succinate ER (TOPROL XL) 100 mg Take 1 tablet by mouth once daily. 90 tablet 1 10/27/2024 Active Comment on above: Take 1 tablet by minoo th once daily. naproxen 500 mg oral tablet (20 sources) Nonsteroidal Anti-inflammatory Drug Start: 05-04-2022 take 1 tablet by mouth twice daily as needed naproxen (NAPROSYN) 500 mg tablet Indications: 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 Take 1 tablet by mouth twice daily as needed (gout flare). Take with food. 60 tablet 05/04/2022 Active Start: 03-20-2022 End: 03-21-2022 take 1 tablet by mouth every twelve hours as needed Naproxen SR (EC-NAPROSYN) 500 mg EC tablet Take 1 tablet by mouth twice daily as needed. TAKE 1 TABLET BY MOUTH TWICE DAILY NEEDED (FOR PAIN/INFLAMMATION). TAKE WITH FOOD. 30 tablet 3 03/20/2022 03/21/2022 Discontinued Start: 07-10-2019 Naproxen 500 M G Oral Tablet as directed Quantity: 0 Refills: 0 Ordered: 10-Jul-2019 DO Start : 10-Jul-2019 Active Start: 07-10-2019 Naproxen 500 M G Oral Tablet as directed Refills: 0 Start : 10-Jul-2019 Active Comment on above: Take 1 tablet by minoo th twice daily as needed. TAKE 1 TABLET BY MOUTH TWICE DAILY NEEDED (FOR PAIN/INFLAMMATION). TAKE WITH FOOD. Take 1 tablet by minoo th twice daily as needed (gout flare). Take with food. pantoprazole 40 mg delayed release oral tablet (20 sources) Proton Pump Inhibitor Start: 022 End: 025 take 1 tablet by mouth twice daily before mealtime pantoprazole DR (PROTONIX) 40 mg tablet Take 1 tablet by mouth two times a day. Take on empty stomach, 1/2 hr before meal. 180 tablet 1 08/25/2024 Active Start: 07-21-2021 End: 12-17-2021 take 1 tablet by mouth twice daily before mealtime pantoprazole DR (PROTONIX) 40 mg tablet Take 1 tablet by mouth twice daily. Take on empty stomach, 1/2 hr before meal. 60 tablet 2 07/21/2021 12/17/2021 Discontinued Start: 01-24-2017 End: 03-14-2022 take 1 tablet by mouth once daily Pantoprazole 40 MG tablet Discontinued 40 mg PO DAILY January 24, 2017 12:00am March 14, 2022 2:53pm Comment on above: Take 1 tablet by minoo th twice daily. Take on empty stomach, 1/2 hr before meal. Take 1 tablet by minoo th two times a day. Take on empty stomach, 1/2 hr before meal. Completed/Discontinued Medications Medication Drug Class(es) Dates Sig (Normalized) Sig (Original) acetaminophen 250 mg / aspirin 250 mg / caffeine 65 mg oral tablet (5 sources) Platelet Aggregation Inhibitor, Nonsteroidal Anti-inflammatory Drug, Central Nervous System Stimulant, Methylxanthine Start: 01-24-2017 End: 11-19-2024 Aspirin/Acetamino phen/Caffeine (Excedrin Extra Strength Caplet) 1 EACH tablet Discontinued 1 {tbl} PO NEEDED as needed for Migraine Symptoms January 24, 2017 12:00am November 19, 2024 10:54am benzonatate 100 mg oral capsule (20 sources) Non-narcotic Antitussive Start: 05-07-2024 End: 01-09-2025 take 1 capsule by mouth every eight hours as needed benzonatate (TESSALON PERLE) 100 mg capsule Take 1 capsule by mouth three times a day as needed. 21 capsule 06/23/2024 01/09/2025 Discontinued (Course of therapy completed) Start: 01-24-2017 End: 03-14-2022 take 2 capsules by mouth three times daily as needed for cough Benzonatate 100 MG capsule Discontinued 200 mg PO 3 TIMES DAILY NEEDED as needed for Cough January 24, 2017 12:00am March 14, 2022 2:52pm Start: 01-24-2017 End: 03-14-2022 take 200 mg by mouth three times daily as needed Benzonatate Discontinued 200 MG PO 3 TIMES DAILY NEEDED January 24, 2017 12:00am March 14, 2022 2:52pm betamethasone 3 mg/ml / betamethasone acetate 3 mg/ml injectable suspension (1 source) Corticosteroid Start: 06-04-2023 End: 06-04-2023 betamethasone acetate-betamethasone sodium phosphate 3 mg injection (CELESTONE) dicyclomine hydrochloride 20 mg oral tablet (1 source) Anticholinergic Start: 10-27-2024 End: 11-19-2024 take 1 tablet by mouth four times daily as needed for muscle spasms Dicyclomine 20 mg tablet Discontinued mg PO 4 TIMES DAILY as needed for Abdominal bloating/spasm October 27, 2024 2:03am November 19, 2024 11:13am doxycycline hyclate 100 mg oral tablet (5 sources) Tetracycline-class Drug Start: 05-07-2024 End: 05-14-2024 take 1 tablet by mouth twice daily doxycycline (VIBRA-TABS) 100 mg tablet Take 1 tablet by mouth two times a day for 7 days. 14 tablet 05/07/2024 05/14/2024 10 ml lidocaine hydrochloride 10 mg/ml injection (1 source) Antiarrhythmic, Amide Local Anesthetic Start: 06-04-2023 End: 06-04-2023 lidocaine (PF) 10 mg/mL (1 %) 0.5 mL injection (XYLOCAINE) ondansetron 4 mg disintegrating oral tablet (6 sources) Serotonin-3 Receptor Antagonist Start: 10-27-2024 End: 11-19-2024 take 1 tablet by mouth three times daily as needed for nausea and vomiting Ondansetron 4 mg tablet,disintegrating Discontinued 4 mg PO THREE TIMES A DAY as needed for nausea and vomiting October 27, 2024 2:02am November 19, 2024 11:15am Start: 01-24-2017 End: 03-14-2022 take 1 tablet by mouth every eight hours as needed for nausea Ondansetron 4 MG tablet Discontinued 4 mg PO EVERY 8 HOURS NEEDED as needed for Nausea January 24, 2017 12:00am March 14, 2022 2:52pm predniSONE 10 mg oral tablet (6 sources) Start: 08-27-2023 predniSONE (DE LTASONE) 10 mg tablet Indications: Trigger index finger of right hand 6 tabs po day 1, then 5 tabs day 2, 4 tabs day 3, 3 tabs day 4, 2 tabs day 5, 1 tab day 6. 21 tablet 0 08/27/2023 Active Start: 01-24-2017 End: 03-14-2022 take 4 tablets by mouth once daily, then take 3 tablets by mouth once daily, then take 2 tablets by mouth once daily, then take 1 tablet by mouth once daily, then take 1 tablet by mouth every other day Prednisone 10 MG tablet Discontinued 10 mg PO DIRECTED January 24, 2017 12:00am Marva 7th, 2022 2:53pm Take 4 tablets daily for 3 days, then 3 daily for 3 days, then 2 daily for 3 days, then 1 a day for 3 days then 1 QOD for 3 doses. Comment on above: 6 tabs po day 1, the n 5 tabs day 2, 4 tabs day 3, 3 tabs day 4, 2 tabs day 5, 1 tab day 6. RABEprazole sodium 20 mg delayed release oral tablet (1 source) Proton Pump Inhibitor Start: 5 End: 5 take 1 tablet by mouth once daily Rabeprazole 20 mg tablet,delayed release (DR/EC) Discontinued 20 mg PO daily November 19, 2024 1:00am November 28, 2024 11:16am regadenoson 0.4 mg injection (LEXISCAN) (1 source) Start: 3 End: 3 regadenoson 0.4 mg injection (LEXISCAN) sucralfate 1000 mg oral tablet (4 sources) Aluminum Complex Start: 2 End: 2 take 1 tablet by mouth twice daily Sucralfate 1 gram tablet Discontinued 1 g PO TWICE A DAY 42 April 07, 2022 12:00am April 27, 2022 12:00am April 28, 2022 12:03am Problems Active Problems Problem Classification Problem Date Documented Da te Episodic/Chronic Aortic and peripheral arterial embolism or thrombosis (20 sources) 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; Translations: [Other arterial embolism and thrombosis of abdominal aorta] Onset: 4 01-09-2024 Chronic Aortic; peripheral; and visceral artery aneurysms (20 sources) Abdominal aortic aneurysm; Translations: [Abdominal aortic aneurysm without rupture] Onset: 4 06-23-2014 Chronic Coronary atherosclerosis and other heart disease (20 sources) Coronary arteriosclerosis; Translations: [Coronary atherosclerosis of unspecified type of vessel, jena or graft] Onset: 3 07-25-2011 Chronic Deficiency and other anemia (1 source) Anemia; Translations: [Anemia, unspecified] 01-09-2024 Episodic Diabetes mellitus without complication (20 sources) Impaired fasting glycemia; Translations: [Impaired fasting glucose] Onset: 8 12-11-2017 Episodic Disorders of lipid metabolism (20 sources) Hyperlipidemia; Translations: [Other and unspecified hyperlipidemia] Onset: 1 11-12-2010 Chronic Diverticulosis and diverticulitis (20 sources) Diverticulosis of colon; Translations: [Diverticulosis of large intestine without perforation or abscess without bleeding] Onset: 3 10-25-2012 Chronic Esophageal disorders (20 sources) Gastroesophageal reflux disease; Translations: [Gastro-esophageal reflux disease without esophagitis] Onset: 1 11-12-2010 Chronic Essential hypertension (20 sources) Hypertensive disorder; Translations: [Unspecified essential hypertension] Onset: 1 11-12-2010 Chronic Fluid and electrolyte disorders (1 source) Dehydration; Translations: [Dehydration] 11-04-2024 Episodic Gastroduodenal ulcer (except hemorrhage) (20 sources) Gastric ulcer; Translations: [Gastric ulcer, unspecified as acute or chronic, without hemorrhage or perforation] Onset: 3 10-25-2012 Chronic Gastroduodenal ulcer (except hemorrhage) (1 source) H/O: gastric ulcer; Translations: [Personal history of peptic ulcer disease] 11-04-2024 Episodic Gastrointestinal hemorrhage (6 sources) Rectal hemorrhage; Translations: [Hemorrhage of anus and rectum] Onset: 5 Episodic Gout and other crystal arthropathies (18 sources) Gouty arthritis of left foot; Translations: [Idiopathic gout, left ankle and foot] Onset: 4 Chronic Immunizations and screening for infectious disease (5 sources) Vaccination needed; Translations: [Encounter for immunization] Onset: 5 Episodic Nausea and vomiting (3 sources) Nausea and vomiting; Translations: [Nausea with vomiting, unspecified] Onset: 5 11-04-2024 Episodic Neoplasms of unspecified nature or uncertain behavior (5 sources) 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; Translations: [Neoplasm of uncertain behavior of other and unspecified digestive organs] Episodic Other disorders of stomach and duodenum (2 sources) Stricture of duodenum; Translations: [Obstruction of duodenum] Chronic Other disorders of stomach and duodenum (5 sources) Disorder of duodenum; Translations: [Disease of stomach and duodenum, unspecified] 03-14-2022 Episodic Other disorders of stomach and duodenum (2 sources) Disease of stomach and duodenum, unspecified; Translations: [Unspecified disorder of stomach and duodenum] Episodic Other gastrointestinal disorders (3 sources) Diarrhea; Translations: [Diarrhea, unspecified] Episodic Other gastrointestinal disorders (2 sources) Heartburn; Translations: [Heartburn] 12-16-2024 Episodic Other gastrointestinal disorders (1 source) Heartburn; Translations: [Heartburn] Onset: 5 Episodic Other gastrointestinal disorders (1 source) Dysphagia, unspecified; Translations: [Dysphagia, unspecified] Onset: Episodic Other lower respiratory disease (4 sources) Cough; Translations: [Acute cough] 05-07-2024 Episodic Other male genital disorders (20 sources) Male erectile dysfunction, unspecified; Translations: [Impotence of organic origin] 12-11-2017 Chronic Other nutritional; endocrine; and metabolic disorders (20 sources) Body mass index 25-29 - overweight; Translations: [Overweight] 12-11-2017 Episodic Other screening for suspected conditions (not mental disorders or infectious disease) (3 sources) Imaging of gastrointestinal tract abnormal; Translations: [Abnormal findings on diagnostic imaging of other parts of digestive tract] Episodic Other upper respiratory infections (1 source) Acute upper respiratory infection; Translations: [Acute upper respiratory infection, unspecified] 05-07-2024 Episodic Residual codes; unclassified (7 sources) History of repair of aneurysm of abdominal aorta; Translations: [Other specified postprocedural states] 11-12-2024 Episodic Residual codes; unclassified (1 source) Other specified postprocedural states; Translations: [History of abdominal aortic aneurysm (AAA) repair] Onset: 5 Episodic Residual codes; unclassified (2 sources) Early satiety; Translations: [Early satiety] 12-16-2024 Episodic Residual codes; unclassified (1 source) Early satiety; Translations: [Early satiety] Onset: 5 Episodic Screening and history of mental health and substance abuse codes (1 source) Patient encounter status; Translations: [Encounter for screening for depression] 01-09-2024 Episodic Unclassified (1 source) APPOINTMENT CANCELLED Unclassified (2 sources) Infrarenal abdominal aortic aneurysm (AAA) without rupture (HCC); Translations: [Infrarenal abdominal aortic aneurysm (AAA) without rupture (HCC)] Onset: 3 Unclassified (1 source) AAA (abdominal aortic aneurysm) without rupture (HCC); Translations: [AAA (abdominal aortic aneurysm) without rupture (HCC)] Onset: 3 Unclassified (1 source) Abdominal aortic aneurysm (AAA) without rupture, unspecified part; Translations: [Abdominal aortic aneurysm (AAA) without rupture, unspecified part] Onset: 3 Unclassified (1 source) Abdominal aortic aneurysm (AAA) without rupture, unspecified part (HCC); Translations: [Abdominal aortic aneurysm (AAA) without rupture, unspecified part (HCC)] Onset: 3 Unclassified (1 source) Acute cough; Translations: [Acute cough] Onset: 4 Viral infection (2 sources) Respiratory syncytial virus infection; Translations: [Other specified viral diseases] 11-04-2024 Episodic Past or Other Problems Problem Classification Problem Date Documented Da te Episodic/Chronic Conditions associated with dizziness or vertigo (20 sources) Vertigo; Translations: [Dizziness and giddiness] Onset: 2011 2011 Episodic Esophageal disorders (20 sources) Esophagitis; Translations: [Esophagitis, unspecified] Onset: 01-30-2011 01-30-2011 Episodic Gastritis and duodenitis (20 sources) Acute gastritis; Translations: [Acute gastritis without bleeding] Onset: 01-30-2011 01-30-2011 Episodic Other connective tissue disease (20 sources) Triggering of digit; Translations: [Trigger finger, right ring finger] Onset: 10-31-2011 10-31-2011 Episodic Other gastrointestinal disorders (1 source) Diarrhea, unspecified; Translations: [Diarrhea, unspecified type] Onset: 07-02-2024 Episodic Other nervous system disorders (20 sources) Acute postoperative pain; Translations: [Other acute postprocedural pain] Onset: 09-05-2023 09-10-2023 Episodic Other non-traumatic joint disorders (20 sources) Shoulder joint pain; Translations: [Pain in unspecified shoulder] Onset: 11-05-2013 11-05-2013 Episodic Other nutritional; endocrine; and metabolic disorders (1 source) Overweight; Translations: [Overweight (BMI 25.0-29.9)] Onset: 09-07-2023 Episodic Pancreatic disorders (not diabetes) (7 sources) Cyst of pancreas; Translations: [Cyst and pseudocyst of pancreas] Onset: 12-09-2021 Episodic NEGATED: Highlighted row has not occurred!Residual codes; unclassified (4 sources) Disease Episodic Results Test Name Value Interpretation Reference Range Facility Gastric Emptying Study - 4 H [facility] 01-19-2025 Gastric Emptying Study - 4 HR [facility] Imaging Services [address] [place] [address] Gastric Emptying Study - 4 HR MR#: [id number] Acct: [id number] Name: KRIS COX Rep #: [id number] : 1950 M 74 From: Max reicnos MD PCP: Dr. Rush Foy MD Status: REG CLI Study: Gastric Emptying Study - 4 HR Date of Exam: Exam# [id number] Ordering Dr: Marlene Nobles PROCEDURE: GASTRIC EMPTYING STUDY - 4 HR 01/19/2025 REASON FOR EXAM: EARLY SATIETY, HB COMPARISON: None. TECHNIQUE: The patient ingested a standard meal of sulfur colloid with 2 pieces of bread as well as butter, and water. postprandially. Anterior and posterior planar images of the upper abdomen were obtained for 1 minute immediately following the meal at 1h, 2h and 4h if more than 10% of the activity persisted within the stomach. Regions of interest were drawn, and a geometric mean was used to calculate a [id number]. RADIOPHARMACEUTICAL: 1.1 mCi of technetium labeled sulfur colloid. FINDINGS: Percent activity remaining in stomach: 1 hour 3 % (normal 37-90%) 2 hours: 37 % (normal 30-60%) 4 hours: 76 % (normal 0-10%) NM/Gastric Emptying Study - 4 HR IMPRESSION: Normal gastric emptying. Reading Location: [facility] CC: EMELIA Nobles; Dr. Rush Foy MD Sinter Feeder: Signed Normal [facility] CNOVon 01-09-2025 CNOV Office Visit (FAMPWS ) KRIS COX ([id number]) 1950 M Date Time Provider Department 01/09/25 7:20 AM SAMUEL FOY During your visit today, we recorded the following information about you: Pulse Respiration Blood pressure Weight 69/minute 16/minute 112/62 75.4 kg Samuel Foy MD 01/09/2025 10:27 AM Signed Chief Complaint Patient presents with: Follow Up: 6 month routine HPI Kris Cox is a 74 year old male who presents here today for Above Complaints.. Patient has barium swallow scheduled 01/[address] Moran's office for continued reflux and history of Barretts. On protonix BID which helps somewhat. Denies dysphagia and odynophagia. Patient had f/u with vascular surgery in November for history of AAA s/p repair in 2022. Recommending he continue ASA and statin with follow-up in 3 years w/ AAA duplex and ABIs. CAD: not following up with cardiology. Stress test normal 08/2023. Asymptomatic on medical management. BP well controlled today. Does not monitor at home. Denies HTN symptoms. No recent gout flares on current regimen and low purine diet. Requesting COVID booster. Past medical history, appointments, medications, allergies reviewed. Previous Medical History PAST MEDICAL HISTORY Diagnosis Date AAA (abdominal aortic aneurysm) ([facility]) Dr. Araujo- Multani's esophagus 2009 Needs repeat EGD 04/2023. CAD (coronary artery disease) 2002 stress test abnormal Diverticulosis Duodenal stricture Dr. Moran Duodenitis without mention of hemorrhage Erectile dysfunction Esophagitis, unspecified Gout History of colonoscopy HTN (hypertension) Hyperlipidemia Impaired fasting glucose Overweight (BMI 25.0-29.9) Vertigo Previous Surgical History PAST SURGICAL HISTORY Procedure Laterality Date CARDIAC CATH 04/30/2007 COLONOSCOPY FLX DX W/COLLJ SPEC WHEN PFRMD 10/25/2012 few diverticula - 10 year follow up COLONOSCOPY FLX DX W/COLLJ SPEC WHEN PFRMD 07/28/2020 Colonoscopy EGD 12/03/2009 dx barretts esophagus EGD 06/10/2009 h-pylori negative EGD BALLOON DILATION ESOPHAGUS <30 MM DIAM 01/30/2011 EGD TRANSORAL BIOPSY SINGLE/MULTIPLE 10/25/2012 duodenitis, gastric ulcer, gastritis, small hiatal hernia, multani's esophagitis EGD W/O [facility] SPEC VARICIES INJ 12/16/2021 ESOPHAGOGASTRODUODENOSCOPY TRANSORAL DIAGNOSTIC 07/28/2020 EGD EXPLORATORY SHOULDER SURGERY 1965 repair dislcoation. left FRACTURE SURGERY Left 1961 Fractured collar bone with surgery INCISE FINGER TENDON SHEATH Right 07/19/2023 Right index trigger finger release PAST SURGICAL HISTORY OF right and left meniscus surgeries of knee PAST SURGICAL HISTORY OF 2008 right middle finger trigger repair PAST SURGICAL HISTORY OF 08/02/2012 right ring trigger finger release PAST SURGICAL HISTORY OF 01/09/2014 Left 3rd finger trigger release TONSILLECTOMY HX Family History FAMILY HISTORY Problem Relation Age of Onset Cancer Mother liver Heart Father Lipids Father other (depression) Sister Multiple Sclerosis Brother Anesthesia Problems No Family History Patient Allergies ALLERGIES No Known Allergies Current Medications Current Outpatient Medications on File Prior to Visit Medication Sig allopurinol (ZYLOPRIM) 100 mg tablet Take 2 tablets by mouth once daily. For gout. metoprolol succinate ER (TOPROL XL) 100 mg Take 1 tablet by mouth once daily. amLODIPine (NORVASC) 5 mg tablet Take 1 tablet by mouth once daily. amLODIPine (NORVASC) 2.5 mg tablet Take one tablet daily along with 5 mg tablet lisinopril (ZESTRIL) 40 mg tablet Take 1 tablet by mouth once daily. pantoprazole DR (PROTONIX) 40 mg tablet Take 1 tablet by mouth two times a day. Take on empty stomach, 1/2 hr before meal. benzonatate (TESSALON PERLE) 100 mg capsule Take 1 capsule by mouth three times a day as needed. atorvastatin (LIPITOR) 20 mg tablet Take 1 tablet by mouth once daily. For cholesterol benzonatate (TESSALON PERLES) 100 mg capsule Take 1 capsule by mouth three times a day as needed for cough. acetaminophen (TYLENOL) 325 mg tablet Take 1 tablet by mouth every 4 hours as needed for pain. aspirin 81 mg chewable tablet Take 1 tablet by mouth once daily. colchicine 0.6 mg tablet Take 2 tabs by mouth, followed by 1 tab one hour later for gout flare. May repeat in 1 week. naproxen (NAPROSYN) 500 mg tablet Take 1 tablet by mouth twice daily as needed (gout flare). Take with food. meclizine (ANTIVERT) 25 mg tab Take 1 tablet by mouth twice daily as needed. TAKE 1 TABLET BY MOUTH NEEDED. USES FOR TRAVELING ONLY. No current facility-administered medications on file prior to visit. Social History Social History Tobacco Use Smoking status: Former Current packs/day: 0.00 Average packs/day: 1 pack/day for 15.0 years (15.0 ttl pk-yrs) Types: Cigarettes (more content not included)... Normal [facility] [id number] 01-09-2025 ECG01 Ventricular Rate : 6 2 BPM Atrial Rate : 62 BPM P-R Interval : 148 ms QRS Duration : 88 ms Q-T Interval : 400 ms QTC Calculation(Bazett) : 406 ms Calculated P [place] : 49 degrees Calculated R [place] : 71 degrees Calculated T [place] : 42 degrees NORMAL SINUS RHYTHM NORMAL ECG Confirmed by MD MCKEON QARAB ([id number]) on 01/09/2025 4:53:29 PM NAME : KRIS COX PID : [id number] : 1950 Gender : Male Race : ORD : Procedure Date : Jan 09 2025 07:50:43 Edit Date : Jan 09 2025 16:53:31 Diagnosis: NORMAL SINUS RHYTHM NORMAL ECG Confirmed by MD MCKEON QARAB ([id number]) on 01/09/2025 4:53:29 PM Test Reason : Location : 136 : [facility] Overread By : MD MCKEON QARAB Edited By : MD MCKEON QARAB Referred By : Samuel Foy Acquired by : [id number], Agustin [facility] EGD Reporton 12-04-2024 EGD Report [facility] Medical Records Department [address] [place] [address] EGD Report MR#: [id number] Acct: [id number] Name: KENNYKRIS Zuluaga Rep #: [id number] : 1950 74 From: Carlton Friend DO PCP: Dr. Rush Foy MD Status:[facility] Patient Name: Kris Cox Procedure Date: 12/04/2024 10:33 AM Date of : 1950 Age: 74 Procedure: Upper GI endoscopy Indications: Dysphagia, Follow-up of Multani's esophagus Providers: Carlton Moran DO Referring MD: Rush Foy Medicines: Monitored Anesthesia Care Patient Profile: This is a 74 year old male. Refer to note in patient chart for documentation of history and physical. Patient has symptoms of chronic dysphagia and chronic heartburn. Complications: No immediate complications. Procedure: Pre-Anesthesia Assessment: - Prior to the procedure, a History and Physical was performed, and patient medications and allergies were reviewed. The patient is competent. The risks and benefits of the procedure and the sedation options and risks were discussed with the patient. All questions were answered and informed consent was obtained. Patient identification and proposed procedure were verified by the physician in the pre-procedure area. Mental Status Examination: alert and oriented. Airway Examination: normal oropharyngeal airway and neck mobility. Respiratory Examination: clear to auscultation. CV Examination: normal. ASA Grade Assessment: II - A patient with mild systemic disease. After reviewing the risks and benefits, the patient was deemed in satisfactory condition to undergo the procedure. The anesthesia plan was to use moderate sedation / analgesia (conscious sedation). Immediately prior to administration of medications, the patient was re-assessed for adequacy to receive sedatives. The heart rate, respiratory rate, oxygen saturations, blood pressure, adequacy of pulmonary ventilation, and response to care were monitored throughout the procedure. The physical status of the patient was re-assessed after the procedure. After obtaining informed consent, the endoscope was passed under direct vision. Throughout the procedure, the patient's blood pressure, pulse, and oxygen saturations were monitored continuously. The gastroscope was introduced through the mouth, and advanced to the duodenal bulb. The upper GI endoscopy was accomplished without difficulty. The patient tolerated the procedure well. Scope In: 11:14:55 AM Scope Out: 11:20:43 AM Total Procedure Duration Time 0 hours 5 minutes 48 seconds Findings: There were esophageal mucosal changes secondary to established long-segment Multani's disease present in the lower third of the esophagus. The maximum longitudinal extent of these mucosal changes was 4 cm in length. Mucosa was biopsied with a cold forceps for histology in a targeted manner at intervals of 1 cm in the lower third of the esophagus. One specimen bottle was sent to pathology. Verification of patient identification for the specimen was done. Estimated blood loss was minimal. LA Grade B (one or more mucosal breaks greater than 5 mm, not extending between the tops of two mucosal folds) esophagitis with no bleeding was found 34 to 39 cm from the incisors. A small hiatal hernia was present. Patchy mild inflammation characterized by erythema was found in the stomach. Biopsies were taken with a cold forceps for histology. Verification of patient identification for the specimen was done. Estimated blood loss was minimal. Biopsies were taken with a cold forceps for Helicobacter pylori testing. Verification of patient identification for the specimen was done. Estimated blood loss was minimal. Food (residue) was found in the duodenal bulb. Impression: - Esophageal mucosal changes secondary to established long-segment Multani's disease. Biopsied. - LA Grade B reflux esophagitis with no bleeding. - Small hiatal hernia. - Bile gastritis. Biopsied. - Retained food in the duodenum. Recommendation: - Discharge patient to home. - Resume previous diet. - Continue present medications. - Await pathology results. - Protonix 40 mg BID x 3 months - Gastric emptying study Procedure Code(s): --- Professional --- 74094, Esophagogastroduodenoscopy, flexible, transoral; with biopsy, single or multiple CPT copyright 2021 [employer]. All rights reserved. The codes documented in this report are preliminary and upon mold changer review may be revised to meet current compliance requirements. Carlton Moran DO 12/04/2024 11:30:55 AM This report has been signed electronically. Number of Addenda: 0 Note Initiated On: 12/04/2024 10:33 AM 12/04/24 1131 Date Carlton Moran DO Cosigner Signature: Date ____ (more content not included)... Normal [facility] Gastroenterology Visit Repor ton 12-04-2024 Gastroenterology Visit Report [facility] Gastroenterology [address] [place] [address] OFFICE VISIT Date of Service: 12/16/24 MR#: [id number] Acct: [id number] Name: KRIS COX Rep #: [id number] : 1950 Provider: EMELIA bernal Age/Sex: 74/M Location: [email or web address] Status: Signed Intake Vital Signs 11/19/24 10:01 12/04/24 10:10 12/16/24 13:30 Height 5 ft 7 in 5 ft 7 in 5 ft 7 in Weight: 166 lb 8 oz BMI 26.0 BP 107/66 Respiration 16 Pulse 57 L Pulse Oximetry (%) 95 Oxygen Delivery Method room air Intake Visit Reasons: Test Result Chief Complaint: heartburn Business Support Manager Required: No Is patient in pain?: No Allergies No Known Allergies Allergy (Verified 12/16/24 13:28) Medications ???Medication ???Instructions ???Recorded ???Confirmed ???Type metoprolol succinate 100 mg 100 mg PO DAILY 01/24/17 12/16/24 History tablet,extended release 24 hr allopurinol 100 mg tablet 100 mg PO DAILY 02/07/22 12/16/24 History atorvastatin 20 mg tablet 20 mg PO QHS 03/14/22 12/16/24 His tory lisinopril 40 mg tablet 40 mg PO DAILY 03/14/22 12/16/24 H istory amlodipine 2.5 mg tablet 2.5 mg PO DAILY 10/26/24 12/16/24 History amlodipine 5 mg tablet 5 mg PO DAILY 10/26/24 12/16/24 Hi story aspirin 81 mg tablet,delayed 81 mg PO QDAY 11/19/24 12/16/24 Hi story release pantoprazole 40 mg tablet,delayed 40 mg PO BID #60 tabs 12/04/24 Rx release Have you fallen in the past year?: No PFSH Medical History History of RSV infection Wears glasses Wears partial dentures Wears dentures Alcohol use High cholesterol Back pain History of ulceration Gastric reflux Former smoker History of echocardiogram History of stress test History of trigger finger Hx of dislocation of shoulder Vertigo Hypertension Gout Esophagitis Erectile dysfunction Duodenitis without mention of hemorrhage CAD (coronary artery disease) AAA (abdominal aortic aneurysm) Surgical History History of shoulder surgery History of AAA (abdominal aortic aneurysm) repair Hx of left knee surgery Hx of arthroscopic knee surgery Hx of esophagogastroduodenoscopy Hx of colonoscopy Hx of tonsillectomy Family History Mother Colon cancer Liver Father Myocardial infarction Heart disease Hypertension High cholesterol Sister Myocardial infarction Depression Respiratory disease Social History Smoking Status: Former smoker alcohol intake: former substance use type: does not use what type of physical activity do you participate in: walking HPI HPI Chief Complaint: heartburn Details: KRIS COX, is a 74 M who presents for Multani's esophagus. For evaluation of dysphagia to the Chief Complaint: more HB at night EGD 04/07/2022 - Multani's w/o dysplasia, negative for H. pylori - Esophageal mucosal changes secondary to established long-segment Multani's disease. Biopsied. - Small hiatal hernia. - A small amount of a trichobezoar in the stomach. - Non-bleeding gastric ulcers with no stigmata of bleeding. Biopsied. - Retained food in the duodenum. COLON 2021 ([place]) normal per patient - repeat in 10 years - denies any family h/o colon CA - denies any change in bowel habits - denies any OFFICE VISIT 11/19/2024 New rabeprazole 20 mg PO QDAY 30 tabs 0RF Discontinued pantoprazole Discontinued Reason: Order Changed 40 mg PO BID dicyclomine Discontinued Reason: Pt no longer taking 20 mg PO 4X/DAY PRN 28 tabs 0RF Abdominal bloating/spasm ondansetron Discontinued Reason: Pt no longer taking 4 mg PO TID PRN 21 tabs 0RF nausea and vomiting Plan 74y/o male presents for follow-up of GERD/Multani's. He was last seen by Virginia Nogueira NP April of 2022, his symptoms were well managed at that time on PPI BID. EGD was last performed 04/07/2022 and revealed Multani's without dysplasia and gastric ulcers (neg. H. pylori), small HH, trichobezoar, retained food in the duodenum. He underwent repair of abdominal aortic aneurysm 1-2 years ago which was causing extrinsic compression of the duodenum. He was seen in ED on 11/01/2024 with complaints of abdominal discomfort, N/V/D, SOB and reported dark emesis and was hypertensive and tachypneic (+RSV). HGB was normal at 16.4 and elevated BUN was likely secondary to MILDRED. He reports having a hard time sleeping at night due to reflux and HB throughout the day. He reports breakthrough symptoms have been more of an issue post aortic repair. Denies any dysphagia. He does c/o early satiety. He is not diabetic. He denies any e (more content not included)... Normal [facility] H Pylori (initial)on H Pylori (initial) ------- Patient Age/Sex Location Account Attending Physician KRIS COX 74/M EN [id number] Carlton Moran, DO Specimen: [id number] Received: 12/04/24 Status: JOSEPH Claire Num: [id number] Spec Type: IMMUNO Subm Dr: Carlton Moran DO PHYSICIAN INSTITUTION [facility] [address] [place], [place] [address] SPECIMEN INFORMATION: Tissue Source: A- Distal esophagus biopsy B- Gastric body biopsy Clinical Info: GERD Specimen Number: [id number] A, B CPT code: 23290w1,63501 METHODOLOGY: Deparaffinized sections of prefer/formalin-fixed tissue or PAP/DQ stained slides are incubated with monoclonal/polyclonal antibodies/oligonucleotide probes. Localization is made via biotin free immunoperoxidase method. Appropriate controls are performed and reacted as expected. Results on target cell population are indicated in the following table: RESULTS: ANTIBODY / CLONE RESULT Block A P53 (DO-7) negative (null pattern) Ki-67 (30-9) positive, low Block B H Pylori (polyclonal) negative These tests were developed and their performance characteristics determined by [facility]. They may not have been cleared or approved by the U.S. Food and Drug Administration. The FDA has determined that such clearance or approval is not necessary. The above immunohistochemical/dualISH markers are ordered and reviewed by the Pathologist. INTERPRETATION: A. Distal esophagus, biopsy: Negative for dysplasia. B. Gastric body, biopsy: Negative for Helicobacter pylori organisms. 12/05/2024 Signed (signature on file) Dr. Richard Platt MD 12/05/[address] [facility] Comment on above: Performed By: #### P H.PYLORI ####[facility] [id number] [facility] [place], [address] MR/POSTOP.Jesus 12-04-2024 MR/POSTOP.SO [facility] Medical Records Department [address] [place] [address] Anesthesia Postop Eval I 12/04/24 1234 MR#: [id number] Acct: [id number] Name: KRIS COX Rep #: [id number] : 1950 74 From: Duane Wallis CRNA PCP: Dr. Rush Foy MD Status:[facility] Race: C Location: [place] [address] Anesthesia: Postop Eval I Current Vital Signs Temperature: 97.9 F Pulse Rate: 70 Blood Pressure: 99/62 Respiratory Rate: 16 Pulse Ox: 98 Oxygen Delivery Method: Room Air Assessment Airway patent: Yes Spontaneous unlabored respirations: Yes Mental status: Awake and Calm nausea: No Vomiting: No Anesthesia Complication: No Fluid Hydration Crystalloid volume administer (ml): 30 Total IV fluid infused: 30 Progress Note Anesthesia document: Postop Eval 1 completed: Yes 12/04/24 1235 Date Duane Wallis WATER SOFTENER INSTALLER Cosigner Signature: Date CC: Signed Normal [facility] MR/POSTOP.ANE [facility] Medical Records Department [address] [place] [address] Anesthesia Postop Eval I 12/04/24 1211 MR#: [id number] Acct: [id number] Name: KRIS COX KAREN Rep #: [id number] : 1950 74 From: Alena Millan PCP: Dr. Rush Foy MD [place] [place] Race: C Location: [place] [address] Anesthesia: Postop Eval I Current Vital Signs Temperature: 97.9 F Pulse Rate: 70 Blood Pressure: 99/62 Respiratory Rate: 16 Pulse Ox: 96 Oxygen Delivery Method: Room Air Assessment Airway patent: Yes Spontaneous unlabored respirations: Yes Mental status: Awake and Calm nausea: No Vomiting: No Anesthesia Complication: No Fluid Hydration Crystalloid volume administer (ml): 10 Total IV fluid infused: 10 Progress Note Anesthesia document: Postop Eval 1 completed: Yes 12/04/24 1212 Date Alena Millan Lonigner Signature: Date CC: Signed Normal [facility] MR/[id number] 12-04-2024 MR/POSTOPAN2 [facility] Medical Records Department [address] [place] [address] Anesthesia Postop Eval II 12/04/24 1212 MR#: [id number] Acct: [id number] Name: KENNYKRIS LACY Rep #: [id number] : 1950 74 From: Alena Millan PCP: Dr. Rush Foy MD Status:[facility] [place] Race: C Location: [place] [address] Anesthesia Postop Eval I Sum Postop Eval Completion status Anesthesia document: Postop Eval 1 completed: Yes Anesthesia Postop Eval I Summary Anesthesia Postop Eval I Summary: Anesthesia Postop Eval I: Assessment Summary Airway patent Yes 12/04/24 12:12 WATER SOFTENER INSTALLER.GDOTT Spontaneous unlabored Yes 12/04/24 12:12 WATER SOFTENER INSTALLER.GDOTT respirations Mental status Awake,Calm 12/04/24 12:12 WATER SOFTENER INSTALLER.GDOTT nausea No 12/04/24 12:12 WATER SOFTENER INSTALLER.GDOTT Vomiting No 12/04/24 12:12 WATER SOFTENER INSTALLER.GDOTT Anesthesia Postop Eval I: Fluid Summary Crystalloid volume administer 10 12/04/24 12:12 WATER SOFTENER INSTALLER.GDOTT (ml) Colloids volume administered ( ml) Blood Product volume administered (ml) Total IV fluid infused 10 12/04/24 12:12 WATER SOFTENER INSTALLER.GDOTT Anesthesia Postop Eval I: Summary Notes Anesthesia Complication No 12/04/24 12:12 WATER SOFTENER INSTALLER.GDOTT Anesthesia Complication Comment: Post-operative progress note Anesthesia: Postop Eval II Evaluation Mental status: Awake and Calm Pain Level: 0 nausea: No Vomiting: No Complications Anesthesia Complication: No 12/04/24 1212 Date Alena Fernando Signature: Date CC: Signed Normal [facility] Special Stain Group Ion 11-09 Special Stain Group I --------- Patient Age/Sex Location Account Attending Physician KRIS COX 74/M EN [id number] Carlton Moran, DO Specimen: [id number] Received: 12/04/24-134 Status: JOSEPH Claire Num: [id number] Spec Type: EGD BIOPSY Subm Dr: Carlton Moran DO HEADER OPERATION: EGD PRE-OP DIAGNOSIS: GERD TISSUE SUBMITTED: A- Distal esophagus biopsy, B- Gastric body biopsy MICROSCOPIC DIAGNOSIS A. 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 Acute and chronic inflammation. Negative for dysplasia. See comment. B. Gastric body, biopsy: Mild gastritis. See microscopic description and comment. JUANY. 12/05/2024 COMMENT A. Alcian blue/PAS stain with matched control is used in the evaluation of the specimen. Immunohistochemistry ([id number]) for P53 and Ki-67 will be performed and results will be reported separately. B. The results of immunohistochemistry for Helicobacter pylori will be reported separately ([id number]). Please make reference to previous specimen [id number] distal esophagus, biopsy with diagnosis of fragments of gastroesophageal mucosa with focal intestinal metaplasia (goblet cell metaplasia), consistent with Multani's esophagus. MICROSCOPIC DESCRIPTION Slides are reviewed. B. The specimen shows fragments of gastric mucosa with chronic inflammatory cell infiltrates in the lamina propria consisting of lymphocytes and plasma cells, consistent with mild chronic gastritis. GROSS DESCRIPTION A. Received in fixative is one container labeled with the patient's name and designated Distal esophagus biopsy. The specimen consists of multiple irregular fragments of light diego soft tissue that in aggregate measure 1.6 x 0.6 x 0.2 cm. The specimen is totally submitted in one cassette. Patient Age/Sex Location Account Attending Physician KENNYKRIS 74/M EN [id number] Carlton DO Luisa B. Received in fixative is one container labeled with the patient's name and designated Gastric body biopsy. The specimen consists of two irregular fragments of light [place]go soft tissue that in aggregate measure 0.8 x 0.5 x 0.2 cm. The specimen is totally submitted in one cassette. 12/04/2024 TC:3 CPT:31587a2,23703 ADDENDUM Addendum 1 Entered: 12/30/24-1158 [facility] - TISSUE CYPHER REPORT- BLOCK A RISK CLASS : LOW RISK SCORE: 0.0 5-YEAR PROBABILITY OF PROGRESSION: 0.20% Please see complete Gen Path Report in the patient's EMR Addendum Signed (signature on file) Dr. Winston Doty MD 12/31/24 1152 Patient Age/Sex Location Account Attending Physician KRIS COX 74/M EN [id number] Carlton Moran DO Signed (signature on file) Dr. Richard Platt MD 12/05/[address] [facility] Comment on above: Performed By: #### P SSI #### [facility] [address] [place], [place], [id number] MR/PAT.SOon 11-28-2024 MR/PAT.SO [facility] Medical Records Department [address] [place] [address] PAT - Anesthesia 11/28/24 1051 MR#: [id number] Acct: [id number] Name: KRIS COX Rep #: [id number] : 1950 74 From: Luis Alberto Coyne MD PCP: Dr. Rush Foy MD Status:PRE SDC Y Race: C [place] [facility] [place]-Assessment Diagnosis/Proposed Procedure Planned Operative Procedure(s): EGD Anesthesia History Anesthesia History - environmental compliance officer: Anesthesia History - environmental compliance officer Hx Hospitalization No 11/28/24 10:17 Any Problems With Anesthesia No 11/28/24 10:17 Cholinesterase deficiency No 11/28/24 10:17 You/Your Family Experience No 11/28/24 10:17 fever (hyperthermia) with Relationship Recent Exposure to Contagious No 04/07/22 05:48 Disease Does patient have nerve No 11/28/24 10:17 stimulator Patient instructed to have device shut off --Does patient have Pacemaker or ICD? When Was Last Pacemaker Check QUESTION #4 FULL TEXT: You/Your Family Experience fever (hyperthermia) with Anesthesia Last Oral Intake Last Oral intake: Last Oral Intake NPO since Meds taken in AM with sips of water? Meds patient instructed to take am of surgery PONV PONV - environmental compliance officer: PONV - environmental compliance officer Female No 11/28/24 10:17 HX of Motion Sickness No 11/28/24 10:17 HX of N/V After Surgery No 11/28/24 10:17 Non-Smoker Yes 11/28/24 10:17 Duration of Surgery greater No 11/28/24 10:17 than 60 minutes Number of Risk Factors 1 11/28/24 10:17 PONV Score Low Risk 11/28/24 10:17 Height Weight Height Weight: Anesthesia: Height Weight Height 5 ft 7 in 11/19/24 10:01 Respiratory Assessment Respiratory Assessment - environmental compliance officer: Respiratory Tract Infection Hx - environmental compliance officer Hx Respiratory Tract Infection No 11/28/24 10:17 STOP Sleep Apnea STOP Sleep Apnea - environmental compliance officer: STOP Sleep Apnea - environmental compliance officer Hx Hypertension Yes 11/28/24 10:17 Hx Sleep Apnea No 11/28/24 10:17 CPAP BIPAP Do you snore loudly (louder No 11/28/24 10:17 than talking or can be heard Do you often feel tired/ No 11/28/24 10:17 fatigued/ sleepy during daytime? Has anyone observed you stop No 11/28/24 10:17 breathing during sleep? STOP Results Negative 11/28/24 10:17 QUESTION #5 FULL TEXT : Do you snore loudly (louder than talking or can be heard through closed doors)? Tobacco Use History Tobacco Use History - environmental compliance officer: Tobacco Use History - environmental compliance officer Tobacco Use Smoking Status Former smoker 11/28/24 10:17 Hx Tobacco Use No 11/28/24 10:17 Years Smoking Packs Smoked per Day Smoking Cessation Date was No - quit smoking greater 11/28/24 10:17 within the last 15 years than 15 years ago Hx Smoking Cessation Date 10/08/79 11/28/24 10:17 Hx Smoking Cessation Counseling Hematologic Medial History Hematologic Hx - environmental compliance officer: Hematologic Medical Hx - transcription coordinator Hx of Blood Transfusion No 11/28/24 10:17 Hx of Transfusion in last 3 No 11/28/24 10:17 Months Date of Last Transfusion (if within last 3 months) Ever experience any problems No 11/28/24 10:17 with transfusion(s)? Specify any problems Hx of Preganancy in last 3 N/A 11/28/24 10:17 Months Nurse Filling Out Transfusion [facility] 11/28/24 10:17 Questions: Date: 11/28/24 11/28/24 10:17 Time: 10:23 11/28/24 10:17 Patient unable to answer at this time (ie. confused, unrespo /Reproduction History /Reproductive History - environmental compliance officer: /Reproductive Hx- environmental compliance officer Hx Now No 11/28/24 10:17 Gestational Age (in weeks): EDC: Hx Hx Para Hx Section SAB No 04/06/22 09:19 PFSH Medical History (Updated 11/28/24 @ 10:22 by Joelle Thakkar) History of RSV infection Wears glasses Wears partial dentures Wears dentures Alcohol use High cholesterol Back pain History of ulceration Gastric reflux Former smoker History of echocardiogram History of stress test History of trigger finger Hx of dislocation of shoulder Vertigo Hypertension Gout Esophagitis Erectile dysfunction Duodenitis without mention of hemorrhage CAD (coronary artery disease) AAA (abdominal aortic aneurysm) Home Medications ???Medication ???Instructions ???Recorded ???Last Taken ???Type metoprolol succinate 100 mg 100 mg PO DAILY 01/24/17 04/07/22 History tablet,extended release 24 hr allopurinol 100 mg tablet 100 mg PO DAILY 02/07/22 Unknown H istory atorvastatin 20 mg tablet 20 mg PO QHS 03/14/22 Unknown Hist ory lisinopril 40 mg tablet 40 mg PO KATHERINE (more content not included)... Normal [facility] Gastroenterology Visit Repor ton 11-19-2024 Gastroenterology Visit Report [facility] Gastroenterology [address] [place] [address] OFFICE VISIT Date of Service: 11/19/24 MR#: [id number] Acct: [id number] Name: KRIS COX Rep #: [id number] : 1950 Provider: EMELIA bernal Age/Sex: 74/M Location: [facility] Status: Signed Intake Vital Signs 10/26/24 22:05 11/19/24 10:01 Height 5 ft 7 in 5 ft 7 in Weight: 165 lb 8 oz BMI 25.9 BP 148/76 H Respiration 18 Pulse Oximetry (%) 95 Oxygen Delivery Method room air Intake Visit Reasons: Acid reflux Chief Complaint: more HB at night Business Support Manager Required: No Is patient in pain?: No Allergies cefdinir Adverse Reaction (Verified 11/19/24 09:55) Nausea/Vom/Diarrhea Medications ???Medication ???Instructions ???Recorded ???Confirmed ???Type metoprolol succinate 100 mg 100 mg PO DAILY 01/24/17 11/19/24 History tablet,extended release 24 hr allopurinol 100 mg tablet 100 mg PO DAILY 02/07/22 11/19/24 History atorvastatin 20 mg tablet 20 mg PO QHS 03/14/22 11/19/24 His tory lisinopril 40 mg tablet 40 mg PO DAILY 03/14/22 11/19/24 H istory amlodipine 2.5 mg tablet 2.5 mg PO DAILY 10/26/24 11/19/24 History amlodipine 5 mg tablet 5 mg PO DAILY 10/26/24 11/19/24 Hi story aspirin 81 mg tablet,delayed 81 mg PO QDAY 11/19/24 11/19/24 Hi story release rabeprazole 20 mg tablet,delayed 20 mg PO QDAY #30 tabs 11/19/24 Rx release Have you fallen in the past year?: No Nurse's Note: Only has reflux at night when he lays on his right side but has heartburn all day. Had an EGD and colon approx. 3 years ago. [facility] Medical History History of RSV infection Wears glasses Wears partial dentures Wears dentures Alcohol use High cholesterol Back pain History of ulceration Gastric reflux Former smoker History of echocardiogram History of stress test History of trigger finger Hx of dislocation of shoulder Vertigo Hypertension Gout Esophagitis Erectile dysfunction Duodenitis without mention of hemorrhage CAD (coronary artery disease) AAA (abdominal aortic aneurysm) Surgical History Hx of left knee surgery Hx of arthroscopic knee surgery Hx of esophagogastroduodenoscopy Hx of colonoscopy Hx of tonsillectomy Family History Mother Colon cancer Liver Father Myocardial infarction Heart disease Hypertension High cholesterol Sister Myocardial infarction Depression Respiratory disease Social History Smoking Status: Former smoker alcohol intake: former substance use type: does not use what type of physical activity do you participate in: walking HPI HPI Chief Complaint: more HB at night Details: KRIS COX, is a 74 M who presents to the office today for EGD 04/07/2022 - Multani's w/o dysplasia, negative for H. pylori - Esophageal mucosal changes secondary to established long-segment Multani's disease. Biopsied. - Small hiatal hernia. - A small amount of a trichobezoar in the stomach. - Non-bleeding gastric ulcers with no stigmata of bleeding. Biopsied. - Retained food in the duodenum. Abdomen/Pelvis CTA 10/26/24 1. No CTA evidence of active gastrointestinal hemorrhage or other acute abnormalities. Some causes of gastrointestinal bleeding can be occult on CTA. Consider further evaluation with endoscopy or nuclear medicine tagged RBC scan if clinically indicated. 2. Surgical repair of the previous infrarenal abdominal aortic aneurysm. No evidence of acute complication. 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 COLON 2021 ([place]) normal per patient - repeat in 10 years - denies any family h/o colon CA - denies any change in bowel habits - denies any - does not eat within 4 hours of bed - c/o breakthrough HB throughout the day and reflux at HS - when laying on right side - denies any N/V - denies any weight loss - c/o early satiety ROS Const Constitutional: No fatigue, fever(s) or weight change ENT ENT: No difficulty swallowing Gastro GI: Positive for heartburn; No abdominal pain, belching, bloating, change in bowel habits, change in stool character, coffee ground emesis, constipation, cramping, diarrhea, difficulty swallowing, feeling full early, excessive flatus, incontinent of stools, Vomiting blood/hematemesis, Blood in stool, loose stools, Black,tarry stools, nausea/dyspepsia, pain with swallowing, vomiting or other Musc Musculoskeletal: No joint pain Skin Skin: No yellowing of the eye or itchy eyes Psych (more content not included)... Normal [facility] CNOVon 11-10-2024 CNOV Office Visit ([facility] ) KRIS COX ([id number]) 1950 M Date Time Provider Department 11/10/24 12:30 PM NAIF GRAVES [facility] During your visit today, we recorded the following information about you: Weight 74.4 kg Naif Graves MD 11/12/2024 10:53 AM Signed [facility] [place] DEPARTMENT OF VASCULAR SURGERY OUTPATIENT VISIT DATE November 10, 2024 OUTPATIENT VISIT TYPE ESTABLISHED SERVICE DATE: 11/10/2024 SERVICE TIME: 1:20 PM PRIMARY CARE PHYSICIAN: Samuel Foy MD HISTORY OF PRESENT ILLNESS: Mr. Cox is a 74 year old male who presents today for a vascular surgery follow-up visit of his AAA. 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 Denies any abdominal or back pain. Feeling well with return to normal strength. PAST MEDICAL HISTORY Diagnosis Date AAA (abdominal aortic aneurysm) ([facility]) Dr. Araujo- Multani's esophagus 2009 Needs repeat EGD 04/2023. CAD (coronary artery disease) 2002 stress test abnormal Diverticulosis Duodenal stricture Dr. Moran Duodenitis without mention of hemorrhage Erectile dysfunction Esophagitis, unspecified Gout History of colonoscopy HTN (hypertension) Hyperlipidemia Impaired fasting glucose Overweight (BMI 25.0-29.9) Vertigo PAST SURGICAL HISTORY Procedure Laterality Date CARDIAC CATH 04/30/2007 COLONOSCOPY FLX DX W/COLLJ SPEC WHEN PFRMD 10/25/2012 few diverticula - 10 year follow up COLONOSCOPY FLX DX W/COLLJ SPEC WHEN PFRMD 07/28/2020 Colonoscopy EGD 12/03/2009 dx barretts esophagus EGD 06/10/2009 h-pylori negative EGD BALLOON DILATION ESOPHAGUS <30 MM DIAM 01/30/2011 EGD TRANSORAL BIOPSY SINGLE/MULTIPLE 10/25/2012 duodenitis, gastric ulcer, gastritis, small hiatal hernia, multani's esophagitis [facility]ICIES INJ 12/16/2021 ESOPHAGOGASTRODUODENOSCOPY TRANSORAL DIAGNOSTIC 07/28/2020 EGD EXPLORATORY SHOULDER SURGERY 1965 repair dislcoation. left FRACTURE SURGERY Left 1961 Fractured collar bone with surgery INCISE FINGER TENDON SHEATH Right 07/19/2023 Right index trigger finger release PAST SURGICAL HISTORY OF right and left meniscus surgeries of knee PAST SURGICAL HISTORY OF 2008 right middle finger trigger repair PAST SURGICAL HISTORY OF 08/02/2012 right ring trigger finger release PAST SURGICAL HISTORY OF 01/09/2014 Left 3rd finger trigger release TONSILLECTOMY HX SOCIAL HISTORY Social History Tobacco Use Smoking status: Former Current packs/day: 0.00 Average packs/day: 1 pack/day for 15.0 years (15.0 ttl pk-yrs) Types: Cigarettes Start date: 06/08/1987 Quit date: 06/08/2002 Years since quittin.4 Smokeless tobacco: Never Vaping Use Vaping status: Never Used Substance Use Topics Alcohol use: Yes Comment: very seldom, not even 1 drink per month Drug use: No MEDICATIONS: metoprolol succinate ER (TOPROL XL) 100 mg Take 1 tablet by mouth once daily. amLODIPine (NORVASC) 5 mg tablet Take 1 tablet by mouth once daily. amLODIPine (NORVASC) 2.5 mg tablet Take one tablet daily along with 5 mg tablet lisinopril (ZESTRIL) 40 mg tablet Take 1 tablet by mouth once daily. pantoprazole DR (PROTONIX) 40 mg tablet Take 1 tablet by mouth two times a day. Take on empty stomach, 1/2 hr before meal. benzonatate (TESSALON PERLE) 100 mg capsule Take 1 capsule by mouth three times a day as needed. atorvastatin (LIPITOR) 20 mg tablet Take 1 tablet by mouth once daily. For cholesterol benzonatate (TESSALON PERLES) 100 mg capsule Take 1 capsule by mouth three times a day as needed for cough. acetaminophen (TYLENOL) 325 mg tablet Take 1 tablet by mouth every 4 hours as needed for pain. aspirin 81 mg chewable tablet Take 1 tablet by mouth once daily. colchicine 0.6 mg tablet Take 2 tabs by mouth, followed by 1 tab one hour later for gout flare. May repeat in 1 week. naproxen (NAPROSYN) 500 mg tablet Take 1 tablet by mouth twice daily as needed (gout flare). Take with food. meclizine (ANTIVERT) 25 mg tab Take 1 tablet by mouth twice daily as needed. TAKE 1 TABLET BY MOUTH NEEDED. USES FOR TRAVELING ONLY. ALLERGIES: ALLERGIES No Known Allergies PHYSICAL EXAM: Wt 74.4 kg (164 lb) BMI 25.69 kg/m? General: Well developed, no acute distress Neurologic: Alert with no focal deficit Skin: No rashes or lesions HEENT: Anicteric sclera Pulmonary: Non-labored breathing Heart: Regular rate Abdomen: Soft, non-tender, non-distended Extremities: No peripheral edema Vascular: Palpable popliteal pulses bilaterally Diagnostic tests reviewed for today's visit: 10/21/2024 - CTA Abdomen/Pelvis 1. Interval repair of infrarenal aortic aneurysm with MAGGY reimplantation. 2. Reimplant (more content not included)... [facility] KR[facility] ([id number]) 1950 M Date Time Provider Department 11[facility]05[facility]24 [facility] During your visit today, we recorded the following information about you: Shira Noel LPN 11/05/2024 10:21 AM Signed ----- Message from Samuel Foy MD sent at 11/05/2024 7:04 AM EST ----- Normal labs. No anemia. Awaiting FOBT results. F/u with GI as recommended. Shira Noel LPN 11/05/2024 10:23 AM Signed Message left for patient to return call. JANEE Beauchamp Kim E, LPN 11/05/2024 11:30 AM Signed patient notified and verbalized understanding. Maury Teixeira LPN Allergies As of Date: 11/05/2024 (No Known Allergies) Date Reviewed: 11/04/2024 Reviewed by: Shira Noel LPN - Fully Assessed Reason for Visit: Results [95] Prescriptions as of 11/05/2024 - metoprolol succinate ER (TOPROL XL) 100 mg Take 1 tablet by mouth once daily. - amLODIPine (NORVASC) 5 mg tablet Take 1 tablet by mouth once daily. - amLODIPine (NORVASC) 2.5 mg tablet Take one tablet daily along with 5 mg tablet - lisinopril (ZESTRIL) 40 mg tablet Take 1 tablet by mouth once daily. - pantoprazole DR (PROTONIX) 40 mg tablet Take 1 tablet by mouth two times a day. Take on empty stomach, 1/2 hr before meal. - benzonatate (TESSALON PERLE) 100 mg capsule Take 1 capsule by mouth three times a day as needed. - atorvastatin (LIPITOR) 20 mg tablet Take 1 tablet by mouth once daily. For cholesterol - allopurinol (ZYLOPRIM) 100 mg tablet Take 2 tablets by mouth once daily. For gout. - benzonatate (TESSALON PERLES) 100 mg capsule Take 1 capsule by mouth three times a day as needed for cough. - acetaminophen (TYLENOL) 325 mg tablet Take 1 tablet by mouth every 4 hours as needed for pain. - aspirin 81 mg chewable tablet Take 1 tablet by mouth once daily. - colchicine 0.6 mg tablet Take 2 tabs by mouth, followed by 1 tab one hour later for gout flare. May repeat in 1 week. - naproxen (NAPROSYN) 500 mg tablet Take 1 tablet by mouth twice daily as needed (gout flare). Take with food. - meclizine (ANTIVERT) 25 mg tab Take 1 tablet by mouth twice daily as needed. TAKE 1 TABLET BY MOUTH NEEDED. USES FOR TRAVELING ONLY. Problem List As Of Date 11/05/2024 Noted Resolved Hypertension [I10] 11/12/2010 Hyperlipidemia [E78.5] 11/12/2010 GERD (gastroesophageal reflux disease) [K21.9] 11/12/2010 Acute gastritis without mention of hemorrhage [*01/30/2011 Esophagitis, unspecified [K20.90] 01/30/2011 Vertigo [R42] 2011 Coronary artery disease [I25.10] 07/25/2011 Trigger ring finger of right hand [M65.341] 10/31/2011 Diverticulosis of colon (without mention of hem*10/25/2012 Gastric ulcer, unspecified as acute or chronic,*10/25/2012 Multani's esophagus [K22.70] 10/25/2012 Pain in joint, shoulder region [M25.519] 11/05/2013 Trigger middle finger of left hand [M65.332] 12/16/2013 AAA (abdominal aortic aneurysm) (HCC) [I71.40] 06/23/2014 Erectile dysfunction [N52.9] Overweight (BMI 25.0-29.9) [E66.3] Impaired fasting glucose [R73.01] CAD (coronary artery disease) [I25.10] 2002 AAA (abdominal aortic aneurysm) without rupture*09/05/2023 Acute post-operative pain [G89.18] 09/05/2023 Other arterial embolism and thrombosis of abdom*01/09/2024 Encounter Status:Closed by MAURY TEIXEIRA on 11/05/24 Normal [facility] Hemoccult Stl Ql IAon 2024 Lower GI hemoglobin IA Ql (Stl) Negative Normal Negative [facility] Comment on above: Order Comment: Speci men Type: STOOL SPECIMENOrdering Facility: [facility] Address: [address] [place] [address] Performed By: #### C VFLRS #### [facility] CLIA [id number] [address] [place] [address] [place] CBC W Auto Differential pane l (Bld)on 11-04-2024 Basophils (Bld) [#/Vol] 0.10 10*3/uL Normal <0.11 [facility] Comment on above: Order Comment: Speci men Type: BLOOD SPECIMENOrdering Facility: [facility] Address: [address] [place] [address] Performed By: #### C VFLRS #### [facility] CLIA [id number] [address] [place] [address] [place] Basophils/100 WBC (Bld) 1.1 % Normal [facility] Comment on above: Order Comment: Speci men Type: BLOOD SPECIMENOrdering Facility: [facility] Address: [address] [place] [address] Performed By: #### C VFLRS #### [facility] CLIA [id number] [address] [place] [address] [place] Differential cell count method Nom (Bld) Auto Normal [facility] Comment on above: Order Comment: Speci men Type: BLOOD SPECIMENOrdering Facility: [facility] Address: [address] [place] [address] Performed By: #### C VFLRS #### [facility] CLIA [id number] [address] [place] [id number] [place] Eosinophils (Bld) [#/Vol] 0.47 10*3/uL High <0.46 [facility] Comment on above: Order Comment: Speci men Type: BLOOD SPECIMENOrdering Facility: [facility] Address: [address] [place] [address] Performed By: #### C VFLRS #### [facility] CLIA [id number] [address] [place] [address] [place] Eosinophils/100 WBC (Bld) 5.2 % Normal [facility] Comment on above: Order Comment: Speci men Type: BLOOD SPECIMENOrdering Facility: [facility] Address: [address] [place] [address] Performed By: #### C VFLRS #### [facility] CLIA [id number] [address] [place] [address] [place] Erythrocyte distribution width (RBC) [Ratio] 13.7 % Normal 11.5-15.0 [facility] Comment on above: Order Comment: Speci men Type: BLOOD SPECIMENOrdering Facility: [facility] Address: [address] [place] [address] Performed By: #### C VFLRS #### [facility] CLIA [id number] [address] [place] [address] [place] Hematocrit (Bld) [Volume fraction] 46.9 % Normal 39.0-51.0 [facility] Comment on above: Order Comment: Speci men Type: BLOOD SPECIMENOrdering Facility: [facility] Address: [address] [place] [address] Performed By: #### C VFLRS #### [facility] CLIA [id number] [address] [place] [address] [place] Hemoglobin (Bld) [Mass/Vol] 15.3 g/dL Normal 13.0-17.0 [facility] Comment on above: Order Comment: Speci men Type: BLOOD SPECIMENOrdering Facility: [facility] Address: [address] [place] [address] Performed By: #### C VFLRS #### [facility] CLIA [id number] [address] [place] [address] [place] Immature granulocytes (Bld) [#/Vol] 0.03 10*3/uL Normal <0.10 [facility] Comment on above: Order Comment: Speci men Type: BLOOD SPECIMENOrdering Facility: [facility] Address: [address] [place] [address] Performed By: #### C VFLRS #### [facility] CLIA [id number] [address] [place] [address] [place] Immature granulocytes/100 WBC (Bld) 0.3 % Normal [facility] Comment on above: Order Comment: Speci men Type: BLOOD SPECIMENOrdering Facility: [facility] Address: [address] [place] [address] Performed By: #### C VFLRS #### [facility] CLIA [id number] [address] [place] [address] [place] Lymphocytes (Bld) [#/Vol] 2.19 10*3/uL Normal 1.00-4.00 [facility] Comment on above: Order Comment: Speci men Type: BLOOD SPECIMENOrdering Facility: [facility] Address: [address] [place] [address] Performed By: #### C VFLRS #### [facility] CLIA [id number] [address] [place] [address] [place] Lymphocytes/100 WBC (Bld) 24.2 % Normal [facility] Comment on above: Order Comment: Speci men Type: BLOOD SPECIMENOrdering Facility: [facility] Address: [address] [place] [address] Performed By: #### C VFLRS #### [facility] CLIA [id number] [address] [place] [address] [place] MCH (RBC) [Entitic mass] 29.8 pg Normal 26.0-34.0 [facility] Comment on above: Order Comment: Speci men Type: BLOOD SPECIMENOrdering Facility: [facility] Address: [address] [place] [address] Performed By: #### C VFLRS #### [facility] CLIA [id number] [address] [place] [address] [place] MCHC (RBC) [Mass/Vol] 32.6 g/dL Normal 30.5-36.0 [facility] Comment on above: Order Comment: Speci men Type: BLOOD SPECIMENOrdering Facility: [facility] Address: [address] [place] [address] Performed By: #### C VFLRS #### [facility] CLIA [id number] [address] [place] [address] [place] MCV (RBC) [Entitic vol] 91.2 fL Normal 80.0-100.0 [facility] Comment on above: Order Comment: Speci men Type: BLOOD SPECIMENOrdering Facility: [facility] Address: [address] [place] [address] Performed By: #### C VFLRS #### [facility] CLIA [id number] [address] [place] [address] [place] Monocytes (Bld) [#/Vol] 0.59 10*3/uL Normal <0.87 [facility] Comment on above: Order Comment: Speci men Type: BLOOD SPECIMENOrdering Facility: [facility] Address: [address] [place] [address] Performed By: #### C VFLRS #### [facility] CLIA [id number] [address] [place] [address] [place] Monocytes/100 WBC (Bld) 6.5 % Normal [facility] Comment on above: Order Comment: Speci men Type: BLOOD SPECIMENOrdering Facility: [facility] Address: [address] [place] [address] Performed By: #### C VFLRS #### [facility] CLIA [id number] [address] [place] [address] [place] Neutrophils (Bld) [#/Vol] 5.66 10*3/uL Normal 1.45-7.50 [facility] Comment on above: Order Comment: Speci men Type: BLOOD SPECIMENOrdering Facility: [facility] Address: [address] [place] [address] Performed By: #### C VFLRS #### [facility] CLIA [id number] [address] [place] [address] [place] Neutrophils/100 WBC (Bld) 62.7 % Normal [facility] Comment on above: Order Comment: Speci men Type: BLOOD SPECIMENOrdering Facility: [facility] Address: [address] [place] [address] Performed By: #### C VFLRS #### [facility] CLIA [id number] [address] [place] [address] [place] Nucleated RBC (Bld) [#/Vol] 10*3/uL Normal <0.01 [facility] Comment on above: Order Comment: Speci men Type: BLOOD SPECIMENOrdering Facility: [facility] Address: [address] [place] [address] Performed By: #### C VFLRS #### [facility] CLIA [id number] [address] [place] [address] [place] Nucleated RBC/100 WBC (Bld) [Ratio] 0.0 /100 WBC Normal [facility] Comment on above: Order Comment: Speci men Type: BLOOD SPECIMENOrdering Facility: [facility] Address: [address] [place] [address] Performed By: #### C VFLRS #### [facility] CLIA [id number] [address] [place] [address] [place] Platelet mean volume (Bld) [Entitic vol] 9.0 fL Normal 9.0-12.7 [facility] Comment on above: Order Comment: Speci men Type: BLOOD SPECIMENOrdering Facility: [facility] Address: [address] [place] [address] Performed By: #### C VFLRS #### [facility] CLIA [id number] [address] [place] [address] [place] Platelets (Bld) [#/Vol] 300 10*3/uL Normal 150-400 [facility] Comment on above: Order Comment: Speci men Type: BLOOD SPECIMENOrdering Facility: [facility] Address: [address] [place] [address] Performed By: #### C VFLRS #### [facility] CLIA [id number] [address] [place] [address] [place] RBC (Bld) [#/Vol] 5.14 10*6/uL Normal 4.20-6.00 [facility] Comment on above: Order Comment: Speci men Type: BLOOD SPECIMENOrdering Facility: [facility] Address: [address] [place] [address] Performed By: #### C VFLRS #### [facility] CLIA [id number] [address] [place] [address] [place] WBC (Bld) [#/Vol] 9.04 10*3/uL Normal 3.70-11.00 [facility] Comment on above: Order Comment: Speci men Type: BLOOD SPECIMENOrdering Facility: [facility] Address: [address] [place] [address] Performed By: #### C VFLRS #### [facility] CLIA [id number] [address] [place] [address] [id number] [address] [place] [facility] CNOVon 11-04-2024 CNOV Office Visit (FAMPWS ) KRIS COX ([id number]) 1950 M Date Time Provider Department 11/04/24 10:00 AM [facility] visit today, we recorded the following information about you: Pulse Respiration Blood pressure Weight 60/minute 16/minute 120/64 74.8 kg Samuel Foy MD 11/04/2024 11:34 AM Signed Chief Complaint Patient presents with: ER F/U: RSV HPI Kris Harvey Kenny is a 74 year old male who presents here today for ER Follow Up.. Patient evaluated at [facility] ED on 10/26 for complaing of nausea/voimiting/diarrhea x 2 days along with fatigue and SOB. Workup in the ER was positive for RSV. CBC, CMP, lipase were normal. Lactic acid level elevated. CXR normal. CTA abdomen/pelvis obtained for complaint of dark emesis which was negative for signs of bleed. Discharged home with rx for zofran and bentyl and advised to follow up with our office. Patient states that symptoms improved the day following the ER visit and has not had vomiting or diarrhea since. States that he never had any hematemesis, hematochezia, or melena. States that when he vomited once it looked like he brought up a black piece of banana. Denies recent NSAID use. Has been getting reflux more frequently at night despite taking Protonix BID. Denies dysphagia, odynophagia, abdominal pain, early satiety, night sweats, fever/chills. History of gastric ulcers on EGD in 2021. Recommended f/u in 1 year for repeat which he is overdue for. Past medical history, appointments, medications, allergies reviewed. Previous Medical History PAST MEDICAL HISTORY Diagnosis Date AAA (abdominal aortic aneurysm) (HCC) Dr. Araujo- Multani's esophagus 2009 Needs repeat EGD 04/2023. CAD (coronary artery disease) 2002 stress test abnormal Diverticulosis Duodenal stricture Dr. Moran Duodenitis without mention of hemorrhage Erectile dysfunction Esophagitis, unspecified Gout History of colonoscopy HTN (hypertension) Hyperlipidemia Impaired fasting glucose Overweight (BMI 25.0-29.9) Vertigo Previous Surgical History PAST SURGICAL HISTORY Procedure Laterality Date CARDIAC CATH 04/30/2007 COLONOSCOPY FLX DX W/COLLJ SPEC WHEN PFRMD 10/25/2012 few diverticula - 10 year follow up COLONOSCOPY FLX DX W/COLLJ SPEC WHEN PFRMD 07/28/2020 Colonoscopy EGD 12/03/2009 dx barretts esophagus EGD 06/10/2009 h-pylori negative EGD BALLOON DILATION ESOPHAGUS <30 MM DIAM 01/30/2011 EGD TRANSORAL BIOPSY SINGLE/MULTIPLE 10/25/2012 duodenitis, gastric ulcer, gastritis, small hiatal hernia, multani's esophagitis EGD W/O BRSH SPEC VARICIES INJ 12/16/2021 ESOPHAGOGASTRODUODENOSCOPY TRANSORAL DIAGNOSTIC 07/28/2020 EGD EXPLORATORY SHOULDER SURGERY 1965 repair dislcoation. left FRACTURE SURGERY Left 1961 Fractured collar bone with surgery INCISE FINGER TENDON SHEATH Right 07/19/2023 Right index trigger finger release PAST SURGICAL HISTORY OF right and left meniscus surgeries of knee PAST SURGICAL HISTORY OF 2008 right middle finger trigger repair PAST SURGICAL HISTORY OF 08/02/2012 right ring trigger finger release PAST SURGICAL HISTORY OF 01/09/2014 Left 3rd finger trigger release TONSILLECTOMY HX Family History FAMILY HISTORY Problem Relation Age of Onset Cancer Mother liver Heart Father Lipids Father other (depression) Sister Multiple Sclerosis Brother Anesthesia Problems No Family History Patient Allergies ALLERGIES No Known Allergies Current Medications Current Outpatient Medications on File Prior to Visit Medication Sig metoprolol succinate ER (TOPROL XL) 100 mg Take 1 tablet by mouth once daily. amLODIPine (NORVASC) 5 mg tablet Take 1 tablet by mouth once daily. amLODIPine (NORVASC) 2.5 mg tablet Take one tablet daily along with 5 mg tablet lisinopril (ZESTRIL) 40 mg tablet Take 1 tablet by mouth once daily. pantoprazole DR (PROTONIX) 40 mg tablet Take 1 tablet by mouth two times a day. Take on empty stomach, 1/2 hr before meal. benzonatate (TESSALON PERLE) 100 mg capsule Take 1 capsule by mouth three times a day as needed. atorvastatin (LIPITOR) 20 mg tablet Take 1 tablet by mouth once daily. For cholesterol allopurinol (ZYLOPRIM) 100 mg tablet Take 2 tablets by mouth once daily. For gout. benzonatate (TESSALON PERLES) 100 mg capsule Take 1 capsule by mouth three times a day as needed for cough. acetaminophen (TYLENOL) 325 mg tablet Take 1 tablet by mouth every 4 hours as needed for pain. colchicine 0.6 mg tablet Take 2 tabs by mouth, followed by 1 tab one hour later for gout flare. May repeat in 1 week. naproxen (NAPROSYN) 500 mg tablet Take 1 tablet by mouth twice daily as needed (gout flare). Take with food. meclizine (ANTIVERT) 25 mg tab Take 1 tablet by mouth twice daily as needed. TAKE 1 TABLET BY MOUTH NEEDED. USES FOR TRAVELI (more content not included)... Normal [facility] Comprehensive metabolic 2000 panelon 11-04-2024 Albumin [Mass/Vol] 4.1 g/dL Normal 3.9-4.9 [facility] Comment on above: Order Comment: Speci men Type: BLOOD SPECIMENOrdering Facility: [facility] Address: [address] [place] [address] Performed By: #### C VFLRS #### [facility] CLIA [id number] [address] [place] [address] [place] ALP [Catalytic activity/Vol] 95 U/L Normal 38-113 [facility] Comment on above: Order Comment: Speci men Type: BLOOD SPECIMENOrdering Facility: [facility] Address: [address] [place] [address] Performed By: #### C VFLRS #### [facility] CLIA [id number] [address] [place] [address] [place] ALT [Catalytic activity/Vol] 14 U/L Normal 10-54 [facility] Comment on above: Order Comment: Speci men Type: BLOOD SPECIMENOrdering Facility: [facility] Address: [address] [place] [address] Performed By: #### C VFLRS #### [facility] CLIA [id number] [address] [place] [address] [place] Anion gap [Moles/Vol] 10 mmol/L Normal 8-15 [facility] Comment on above: Order Comment: Speci men Type: BLOOD SPECIMENOrdering Facility: [facility] Address: [address] [place] [address] Performed By: #### C VFLRS #### [facility] CLIA [id number] [address] [place] [address] [place] AST [Catalytic activity/Vol] 17 U/L Normal 14-40 [facility] Comment on above: Order Comment: Speci men Type: BLOOD SPECIMENOrdering Facility: [facility] Address: [address] [place] [address] Performed By: #### C VFLRS #### [facility] CLIA [id number] [address] [place] [address] [place] Bilirubin [Mass/Vol] 0.4 mg/dL Normal 0.2-1.3 [facility] Comment on above: Order Comment: Speci men Type: BLOOD SPECIMENOrdering Facility: [facility] Address: [address] [place] [address] Performed By: #### C VFLRS #### [facility] CLIA [id number] [address] [place] [address] [place] Calcium [Mass/Vol] 9.3 mg/dL Normal 8.5-10.2 [facility] Comment on above: Order Comment: Speci men Type: BLOOD SPECIMENOrdering Facility: [facility] Address: [address] [place] [address] Performed By: #### C VFLRS #### [facility] CLIA [id number] [address] [place] [address] [place] Chloride [Moles/Vol] 102 mmol/L Normal 98-107 [facility] Comment on above: Order Comment: Speci men Type: BLOOD SPECIMENOrdering Facility: [facility] Address: [address] [place] [address] Performed By: #### C VFLRS #### [facility] CLIA [id number] [address] [place] [address] [place] CO2 [Moles/Vol] 26 mmol/L Normal 22-30 [facility] Comment on above: Order Comment: Speci men Type: BLOOD SPECIMENOrdering Facility: [facility] Address: [address] [place] [address] Performed By: #### C VFLRS #### [facility] CLIA [id number] [address] [place] [address] [place] Creatinine [Mass/Vol] 0.91 mg/dL Normal 0.73-1.22 [facility] Comment on above: Order Comment: Speci men Type: BLOOD SPECIMENOrdering Facility: [facility] Address: [address] [place] [address] Performed By: #### C VFLRS #### [facility] CLIA [id number] [address] [place] [address] [place] Creatinine and Glomerular filtration rate.predicted panel (S/P/Bld) 88 mL/min/1.73m??? Normal >=60 [facility] Comment on above: Order Comment: Speci men Type: BLOOD SPECIMENOrdering Facility: [facility] Address: [address] [place] [address] Result Comment: Jonelle mated Glomerular Filtration Rate (eGFR) is calculated using the 2020 CKD-EPI creatinine equation. This equation utilizes serum creatinine, sex, and age as parameters. The creatinine assay has traceable calibration to isotope dilution-mass spectrometry. Refer to KDIGO guidelines for clinical interpretation. In patients with unstable renal function, e.g. those with acute kidney injury, the eGFR may not accurately reflect actual GFR. Performed By: #### C VFLRS #### [facility] CLIA [id number] [address] [place] [address] [place] Glucose [Mass/Vol] 108 mg/dL High 74-99 [facility] Comment on above: Order Comment: Speci men Type: BLOOD SPECIMENOrdering Facility: [facility] Address: [address] [place] [address] Result Comment: The [place] Diabetes Association (ADA) provides guidance for cutoff values for fasting glucose and random glucose. The ADA defines fasting as no caloric intake for at least 8 hours. Fasting plasma glucose results between 100 to 125 mg/dL indicate increased risk for diabetes (prediabetes). Fasting plasma glucose results greater than or equal to 126 mg/dL meet the criteria for diagnosis of diabetes. In the absence of unequivocal hyperglycemia, results should be confirmed by repeat testing. In a patient with classic symptoms of hyperglycemia or hyperglycemic crisis, random plasma glucose results greater than or equal to 200 mg/dL meet the criteria for diagnosis of diabetes. Reference: Standards of Medical Care in Diabetes 2016, [place] Diabetes Association. Diabetes Care. 2016.39(Suppl 1). Performed By: #### C VFLRS #### [facility] CLIA [id number] [address] [place] [address] [place] Potassium [Moles/Vol] 4.6 mmol/L Normal 3.7-5.1 [facility] Comment on above: Order Comment: Speci men Type: BLOOD SPECIMENOrdering Facility: [facility] Address: [address] [place] [id number] Performed By: #### C VFLRS #### [facility] CLIA [id number] [address] [place] [address] [place] Protein [Mass/Vol] 6.9 g/dL Normal 6.3-8.0 [facility] Comment on above: Order Comment: Speci men Type: BLOOD SPECIMENOrdering Facility: [facility] Address: [address] [place] [address] Performed By: #### C VFLRS #### [facility] CLIA [id number] [address] [place] [address] [place] Sodium [Moles/Vol] 138 mmol/L Normal 136-144 [facility] Comment on above: Order Comment: Speci men Type: BLOOD SPECIMENOrdering Facility: [facility] Address: [address] [place] [address] Performed By: #### C VFLRS #### [facility] CLIA [id number] [address] [place] [address] [place] Urea nitrogen [Mass/Vol] 10 mg/dL Normal 9-24 [facility] Comment on above: Order Comment: Speci men Type: BLOOD SPECIMENOrdering Facility: [facility] Address: [address] [place] [address] Performed By: #### C VFLRS #### [facility] CLIA [id number] [address] [place] [address] [place] Stool Occult Blood iFOBon STOB Positive Normal [facility] Comment on above: Performed By: #### M 100.7900 #### [facility] [address] [place], [address] 12 Lead EKGon 10-26-2024 12 Lead EKG [facility] [address] [place] [address] 12 Lead EKG 10/26/24 [id number] MR#: [id number] Acct: [id number] Name: KRIS COX Rep #: [id number] : 1950 74 From: Lyn Shepard MD Attending Dr: Status: DEP ER Ordering Dr: Freddy Valle DO Date: 10/26/24 Location: ED Sex: M C Admitted: Test Reason : CP Blood Pressure : */* mmHG Vent. Rate : 68 BPM Atrial Rate : 68 BPM P-R Int : 142 ms QRS Dur : 88 ms QT Int : 430 ms P-R-T Axes : 75 75 54 degrees QTcB Int : 457 ms Normal sinus rhythm Normal ECG Confirmed by KOREY BARROSO, NAIN ([id number]), index editor KASEY BISWAS ([id number]) on 10/27/2024 11:00:08 AM Referred By: MOE Confirmed By: NAIN SHEPARD MD 10/27/24 1100 Date Lyn Shepard MD CC: Dr. Rush Foy MD; Freddy Valle DO Signed Normal [facility] Absolute neutrophil countOrd ered By: Freddy Valle on 10-26-2024 Neutrophils (Bld) [#/Vol] 5.9 10*3/uL 2.0-7.7 [facility] Basic Metabolic Profile (BMP )on 10-26-2024 BUN/CRE 23.5 RATIO High 10- [facility] Comment on above: Performed By: #### L 100.0100, L500.2500, L500.3400, L501.2450 ####[facility] [address] [place], [address] CA,Total 9.6 mg/dL Normal 8.5-10.1 [facility] Comment on above: Performed By: #### L 100.0100, L500.2500, L500.3400, L501.2450 ####[facility] [address] [place], [address] Chloride [Moles/Vol] 107 mmol/L Normal 98-107 [facility] Comment on above: Performed By: #### L 100.0100, L500.2500, L500.3400, L501.2450 ####[facility] [address] [place], [address] CO2 [Moles/Vol] 21.0 mmol/L Normal 21.0-32.0 [facility] Comment on above: Performed By: #### L 100.0100, L500.2500, L500.3400, L501.2450 ####[facility] [address] [place], [address] Creatinine [Mass/Vol] 1.19 mg/dL Normal 0.70-1.30 [facility] Comment on above: Result Comment: The validity of the calculated GFR GFRAA in patients over 70 years has not been determined. Clinical correlation is essential. Performed By: #### L 100.0100, L500.2500, L500.3400, L501.2450 ####[facility] [address] [place], [address] ECRCL 50.15 ml/min Normal [facility] Comment on above: Performed By: #### L 100.0100, L500.2500, L500.3400, L501.2450 ####[facility] [address] [place], [address] EST GFR - AA 77 mL/min Normal >60 [facility] Comment on above: Result Comment: Afri can [place] GFR Calc Performed By: #### L 100.0100, L500.2500, L500.3400, L501.2450 ####[facility] [address] [place], [address] GAP 12 Normal 5-15 [facility] Comment on above: Performed By: #### L 100.0100, L500.2500, L500.3400, L501.2450 ####[facility] [address] [place], [address] GFR/1.73 sq M.predicted among non-blacks MDRD (S/P/Bld) [Vol rate/Area] 63 mL/min/{1.73_m2} Normal >60 [facility] [facility] Comment on above: Result Comment: Non- GFR Calc Performed By: #### L 100.0100, L500.2500, L500.3400, L501.2450 ####[facility] [address] [place], [address] Glucose [Mass/Vol] 93 mg/dL Normal 74-106 [facility] Comment on above: Performed By: #### L 100.0100, L500.2500, L500.3400, L501.2450 ####[facility] [address] [place], [address] Potassium [Moles/Vol] 4.0 mmol/L Normal 3.5-5.1 [facility] Comment on above: Performed By: #### L 100.0100, L500.2500, L500.3400, L501.2450 ####[facility] [address] [place], [address] Sodium [Moles/Vol] 140 mmol/L Normal 136-145 [facility] Comment on above: Performed By: #### L 100.0100, L500.2500, L500.3400, L501.2450 ####[facility] [address] [place], [address] Urea nitrogen [Mass/Vol] 28 mg/dL High 7-18 [facility] Comment on above: Performed By: #### L 100.0100, L500.2500, L500.3400, L501.2450 ####[facility] [address] [place], [address] Basophil percentageOrdered B y: Freddy Valle on 10-26-2024 Basophils/100 WBC (Bld) 0.7 % 0-1 [facility] Bilirubin directOrdered By: Freddy Valle on 10-26-2024 Bilirubin.direct [Mass/Vol] 0.20 mg/dL 0.00-0.30 [facility] Bilirubin, totalOrdered By: Freddy Valle on 10-26-2024 Bilirubin [Mass/Vol] 0.70 mg/dL 0.20-1.00 [facility] Comment on above: For patients on eltr ombopag therapy, use of Dimension [place] TBIL is not recommended. Blood urea nitrogen (BUN)/cr eatinine ratioOrdered By: Freddy Valle on 10-26-2024 Urea nitrogen/Creatinine [Mass ratio] 23.5 mg/mg High 10- [facility] CBC W/Diff, Automatedon 10-08 Absolute Lymph 1.55 X10 3/uL Normal 0.83-4.51 [facility] Comment on above: Performed By: #### L 100.0100, L500.2500, L500.3400, L501.2450 ####[facility] [address] [place], [address] Absolute Neut 5.9 X10 3/uL Normal 2.0-7.7 [facility] Comment on above: Performed By: #### L 100.0100, L500.2500, L500.3400, L501.2450 ####[facility] [address] [place], [address] Basophils/100 WBC (Bld) 0.7 % Normal 0-1 [facility] Comment on above: Performed By: #### L 100.0100, L500.2500, L500.3400, L501.2450 ####[facility] [address] [place], [address] Eosinophils/100 WBC (Bld) 0.7 % Normal 0-5 [facility] Comment on above: Performed By: #### L 100.0100, L500.2500, L500.3400, L501.2450 ####[facility] [address] [place], [address] Erythrocyte distribution width (RBC) [Ratio] 14.2 % Normal 11.6-14.6 [facility] Comment on above: Performed By: #### L 100.0100, L500.2500, L500.3400, L501.2450 ####[facility] [address] [place], [address] Hematocrit (Bld) [Volume fraction] 48.4 % Normal 40-54 [facility] Comment on above: Performed By: #### L 100.0100, L500.2500, L500.3400, L501.2450 ####[facility] [address] [place], [address] Hemoglobin (Bld) [Mass/Vol] 16.4 g/dL Normal 13.0-16.5 [facility] Comment on above: Performed By: #### L 100.0100, L500.2500, L500.3400, L501.2450 ####[facility] [address] [place], [address] IG% 0.200 Normal 0.0-0.9 [facility] Comment on above: Result Comment: IG% - Immature Granulocytes (promyelocytes, myelocytes and metamyelocytes) > 1% indicates that a LEFT SHIFT is Present. Performed By: #### L 100.0100, L500.2500, L500.3400, L501.2450 ####[facility] [address] [place], [address] Lymphocytes/100 WBC (Bld) 18.5 % Low 19-41 [facility] Comment on above: Performed By: #### L 100.0100, L500.2500, L500.3400, L501.2450 ####[facility] [address] [place], [address] MCH (RBC) [Entitic mass] 29.9 pg Normal 27.0-32.0 [facility] Comment on above: Performed By: #### L 100.0100, L500.2500, L500.3400, L501.2450 ####[facility] [address] [place], [address] MCHC (RBC) [Mass/Vol] 33.9 g/dL Normal 32-36 [facility] Comment on above: Performed By: #### L 100.0100, L500.2500, L500.3400, L501.2450 ####[facility] [address] [place], [address] MCV (RBC) [Entitic vol] 88.2 fL Normal 80-94 [facility] Comment on above: Performed By: #### L 100.0100, L500.2500, L500.3400, L501.2450 ####[facility] [address] [place], [address] Monocytes/100 WBC (Bld) 9.3 % Normal 0-10 [facility] Comment on above: Performed By: #### L 100.0100, L500.2500, L500.3400, L501.2450 ####[facility] [address] [place], [address] Neutrophils/100 WBC (Bld) 70.6 % High 47-70 [facility] Comment on above: Performed By: #### L 100.0100, L500.2500, L500.3400, L501.2450 ####[facility] [address] [place], [address] Nucleated RBC (Bld) [#/Vol] 0 10*3/uL Normal 0-5 [facility] Comment on above: Performed By: #### L 100.0100, L500.2500, L500.3400, L501.2450 ####[facility] [address] [place], [address] Platelet mean volume (Bld) [Entitic vol] 9.2 fL Normal 6.2-12.0 [facility] Comment on above: Performed By: #### L 100.0100, L500.2500, L500.3400, L501.2450 ####[facility] [address] [place], [address] Platelets (Bld) [#/Vol] 224 10*3/uL Normal 150-450 [facility] Comment on above: Performed By: #### L 100.0100, L500.2500, L500.3400, L501.2450 ####[facility] [address] [place], [address] RBC (Bld) [#/Vol] 5.49 10*6/uL Normal 4.6-6.2 [facility] Comment on above: Performed By: #### L 100.0100, L500.2500, L500.3400, L501.2450 ####[facility] [address] [place], [address] RDW SD 45.5 fl High 35.1-43.9 [facility] Comment on above: Performed By: #### L 100.0100, L500.2500, L500.3400, L501.2450 ####[facility] [address] [place], [address] WBC (Bld) [#/Vol] 8.4 10*3/uL Normal 4.4-11.0 [facility] Comment on above: Performed By: #### L 100.0100, L500.2500, L500.3400, L501.2450 ####[facility] [address] [place], [address] CTA Abd/Pelvis W/WO Contrast on 10-26-2024 CTA Abd/Pelvis W/WO Contrast [facility] [address] [place] [address] CTA Abd/Pelvis W/WO Contrast MR#: [id number] Acct: [id number] Name: KRIS COX Rep #: [id number] : 1950 M 74 From: Naif Mota MD PCP: Dr. Rush Foy MD Status: REG ER Study: CTA Abd/Pelvis W/WO Contrast Date of Exam: Exam# [id number] Ordering Dr: Freddy Valle DO [id number] EXAM: CT ANGIOGRAPHY ABDOMEN AND PELVIS WITHOUT AND WITH INTRAVENOUS CONTRAST CLINICAL INDICATION: GI bleed TECHNIQUE: Helically acquired angiography images were obtained of the abdomen and pelvis without and with intravenous contrast. This CT exam was performed using one or more of the following dose reduction techniques: automated exposure control, adjustment of the mA and/or kV according to patient size, and/or use of iterative reconstruction technique. MIP reconstructed images were created and reviewed. CONTRAST: IV 100mL [id number] RADIATION DOSE: CTDIvol = 30.16 mGy, DLP = 913.11 mGy-cm COMPARISON: CT abdomen pelvis 10/07/2022 FINDINGS: VASCULATURE: AORTA: Surgical repair of the previous infrarenal abdominal aortic aneurysm. No dissection. CELIAC TRUNK AND MESENTERIC ARTERIES: No acute findings. No occlusion or significant stenosis. No dissection. RENAL ARTERIES: No acute findings. No occlusion or significant stenosis. No dissection. ILIAC ARTERIES: No acute findings. No occlusion or significant stenosis. No dissection. LOWER THORAX: Unremarkable. Lung bases are clear. No cardiomegaly. No significant pericardial effusion. ABDOMEN: LIVER: Unremarkable. Homogeneous. No focal mass. GALLBLADDER AND BILE DUCTS: Unremarkable. No calcified gallstones. No gallbladder distention or wall edema. No intra- or extrahepatic biliary ductal dilation. PANCREAS: Unremarkable. No focal cystic or solid mass. SPLEEN: Unremarkable. Normal size without focal cystic or solid mass. ADRENALS: Unremarkable. No nodules. KIDNEYS AND URETERS: Simple right renal cyst. No follow-up imaging is recommended per consensus recommendations based on imaging criteria. Normal renal size and position. No hydronephrosis. STOMACH AND BOWEL: Diverticular disease of the colon but no diverticulitis. No stomach or bowel distention. PELVIS: APPENDIX: The appendix is normal. BLADDER: Unremarkable. REPRODUCTIVE: Unremarkable as visualized. No mass. ABDOMEN and PELVIS: INTRAPERITONEAL SPACE: Unremarkable. No ascites or other fluid collection. No free air. BONES/JOINTS: Degenerative changes of the spine. No suspicious lytic or blastic abnormality. SOFT TISSUES: Unremarkable. No discrete abdominal or pelvic wall hernia. LYMPH NODES: Unremarkable. No enlarged lymph nodes. CT/CTA Abd/Pelvis W/WO Contrast IMPRESSION: 1. No CTA evidence of active gastrointestinal hemorrhage or other acute abnormalities. Some causes of gastrointestinal bleeding can be occult on CTA. Consider further evaluation with endoscopy or nuclear medicine tagged RBC scan if clinically indicated. 2. Surgical repair of the previous infrarenal abdominal aortic aneurysm. No evidence of acute complication. Electronically Signed: Naif Mota MD at 0:35 EST , CC: Dr. Rush Foy MD; Freddy Valle DO Sinter Feeder: Signed Normal [facility] Carbon dioxide measurementOr dered By: Freddy Valle on 10-26-2024 CO2 [Moles/Vol] 21.0 mmol/L 21.0-32.0 [facility] Chest 1 View (Portable)on Chest 1 View (Portable) [facility] Services [address] [place] [id number] Chest 1 View (Portable) MR#: [id number] Acct: [id number] Name: KRIS COX Rep #: [id number] : 1950 M 74 From: Naif Mota MD PCP: Dr. Rush Foy MD Status: REG ER Study: Chest 1 View (Portable) Date of Exam: 10/26/24 Exam# [id number] Ordering Dr: Freddy Valle DO [id number] EXAM: XR CHEST, 1 VIEW CLINICAL INDICATION: dyspnea TECHNIQUE: Frontal view of the chest. COMPARISON: No relevant prior studies available. FINDINGS: LUNGS AND PLEURAL SPACES: Unremarkable. No consolidation or edema. No pneumothorax. No effusion. HEART: Unremarkable. Cardiac silhouette not enlarged. MEDIASTINUM: Central airways and mediastinal contour are unremarkable. BONES/JOINTS: Unremarkable. No acute fracture. SOFT TISSUES: Unremarkable. RAD/Chest 1 View (Portable) IMPRESSION: No radiographic evidence of acute cardiopulmonary disease. Electronically Signed: Naif Mota MD at 23:33 EST , CC: Dr. Rush Foy MD; Freddy Valle DO Sinter Feeder: Signed Normal [facility] Chloride measurementOrdered By: Freddy Valle on 10-26-2024 Chloride [Moles/Vol] 107 mmol/L 98-107 [facility] Emergency Department Summary on 10-26-2024 Emergency Department Summary [facility] Medical Records Department [address] [place] [address] Emergency Department Summary 10/26/24 MR#: [id number] Acct: [id number] Name: KRIS COX Rep #: [id number] : 1950 74 From: Freddy Valle DO PCP: Dr. Rush Foy MD Status:REG ER Location: ED HPI History of Present Illness Chief Complaint: Nausea/Vomiting/Diarrhea Informant: patient and spouse/S.O. Narrative Narrative: Patient is a 74-year-old male with past medical history of hypertension as well as abdominal aortic aneurysm that was repaired 1 year ago. He states that his was sick recently with nausea vomiting and diarrhea. He states he is also had multiple friends sick with similar symptoms. He states over the past 2 days he has had recurrent bouts of vomiting and diarrhea. He states that other than the known sick contacts there has been no recent antibiotic use or travel outside the country. He reports that his got better in a few days and therefore he was trying to write out his symptoms at home. However as time is progressed there is been no improvement and he is now having increased fatigue/weakness and shortness of breath and secondary to the worsening symptoms comes in for evaluation [facility] Medical History Wears glasses Wears partial dentures Wears dentures Alcohol use High cholesterol Back pain History of ulceration Gastric reflux Former smoker History of echocardiogram History of stress test History of trigger finger Hx of dislocation of shoulder Vertigo Hypertension Gout Esophagitis Erectile dysfunction Duodenitis without mention of hemorrhage CAD (coronary artery disease) AAA (abdominal aortic aneurysm) Home Medications ???Medication ???Instructions ???Recorded ???Last Taken ???Type Aspirin/Acetaminophen/Caffe ine 1 tab PO PRN PRN Migraine Symptoms 01/24/17 Unknown History [Excedrin Extra Strength Caplet] meclizine 25 mg tablet 25 mg PO PRN PRN Vertigo 01/24/17 Unknown History metoprolol succinate 100 mg 100 mg PO DAILY 01/24/17 04/07/22 History tablet,extended release 24 hr allopurinol 100 mg tablet 100 mg PO DAILY 02/07/22 Unknown History atorvastatin 20 mg tablet 20 mg PO QHS 03/14/22 Unknown History lisinopril 40 mg tablet 40 mg PO DAILY 03/14/22 04/07/22 History pantoprazole 40 mg tablet,delayed 40 mg PO BID 03/14/22 04/07/22 History release amlodipine 2.5 mg tablet 2.5 mg PO DAILY 10/26/24 Unknown History amlodipine 5 mg tablet 5 mg PO DAILY 10/26/24 Unknown History dicyclomine 20 mg tablet 20 mg PO 4X/DAY PRN Abdominal 10/27/24 Unknown Rx bloating/spasm #28 tabs ondansetron 4 mg disintegrating 4 mg PO TID PRN nausea and 10/27/24 Unknown Rx tablet vomiting #21 tabs Allergy/AdvReac Type Severity Reaction Status Date / Time cefdinir AdvReac Nausea/Vom/ Verified 10/26/24 22:09 Diarrhea Family History Mother Colon cancer Liver Surgical History Hx of arthroscopic knee surgery Hx of colonoscopy Hx of esophagogastroduodenoscopy Hx of left knee surgery Hx of tonsillectomy Social History Smoking Status: Former smoker alcohol intake: current ROS ROS ED Constitutional Constitutional ED: Denies chills or fever(s) Eyes Eyes: Denies change in vision ENT ENT ED: Denies sore throat Cardiovascular Cardiovascular: Denies chest pain or palpitations Respiratory/Chest Respiratory/Chest: Reports dyspnea; Denies cough Gastrointestinal Gastrointestinal: Reports abdominal pain, diarrhea, nausea and vomiting Genitourinary Genitourinary ED: Denies dysuria or hematuria Musculoskeletal Musculoskeletal: Reports myalgias Integumentary Denies rash Neurologic Neurologic: Reports weakness; Denies headache(s) Hematologic/Lymphatic Hematologic/Lymphatic: Denies easy bleeding or easy bruising EXAM Physical Exam Const Vital Signs: 10/26/24 22:05 10/26/24 22:08 10/27/24 00:08 Temperature 96.8 F L 96.8 F L 98.2 F Temperature Source Axillary Axillary Oral Pulse Rate 83 92 74 Respiratory Rate 28 H 33 H 17 Blood Pressure 165/66 H 165/66 H 125/69 H Blood Pressure Mean 99 99 87 Pulse Ox 98 99 97 Oxygen Delivery Method Room Air 10/27/24 01:03 Temperature 98.1 F Temperature Source Pulse Rate 76 Respiratory Rate 16 Blood Pressure 138/67 H Blood Pressure Mean 90 Pulse Ox 94 Oxygen Delivery Method Positive well nourished and well developed General Appearance ED: well developed; Negative for pallor HEENT Reports dry mucous membranes HEENT Narrative: Mucous membranes are dry and tacky (more content not included)... Normal [facility] Eosinophil percentageOrdered By: Freddy Valle on 10-26-2024 Eosinophils/100 WBC (Bld) 0.7 % 0-5 [facility] Erythrocyte distribution wid th (RBC) [Ratio]Ordered By: Freddy Valle on 10-26-2024 Erythrocyte distribution width (RBC) [Entitic vol] 45.5 fL High 35.1-43.9 [facility] Erythrocyte distribution wid th ratioOrdered By: Freddy Valle on 10-26-2024 Erythrocyte distribution width (RBC) [Ratio] 14.2 % 11.6-14.6 [facility] Estimated glomerular filtrat ion rate (GFR) AmericanOrdered By: Freddy Valle on 10-26-2024 Estimated GFR (MDRD) Amer 77 mL/min >60 [facility] Comment on above: GFR Calc Estimation of creatinine vanesa aranceOrdered By: Freddy Valle on 10-26-2024 Estimated Creatinine Clearance Calc 50.15 ml/min [facility] Glomerular filtration rate ( GFR) estimationOrdered By: Freddy Valle on 10-26-2024 Estimated GFR (MDRD) Non-Af Amer 63 mL/min >60 [facility] Comment on above: Non- GFR Calc Glucose measurementOrdered B y: Freddy Valle on 10-26-2024 Glucose [Mass/Vol] 93 mg/dL 74-106 [facility] Hematocrit Auto (Bld) [Volum e fraction]Ordered By: Freddy Valle on 10-26-2024 Hematocrit (Bld) [Volume fraction] 48.4 % 40-54 [facility] Hemoglobin measurementOrdere d By: Freddy Valle on 10-26-2024 Hemoglobin (Bld) [Mass/Vol] 16.4 g/dL 13.0-16.5 [facility] Immature granulocytes/100 WB C Auto (Bld)Ordered By: Freddy Valle on 10-26-2024 Immature granulocytes/100 WBC (Bld) 0.200 % 0.0-0.9 [facility] Comment on above: IG% - Immature Granu locytes (promyelocytes, myelocytes and metamyelocytes) > 1% indicates that a LEFT SHIFT is Present. Influenza virus A and B and SARS-CoV-2 (COVID-19) and Respiratory syncytial virus RNAOrdered By: Freddy Valle on 10-26-2024 SARS-CoV-2 (COVID-19) RNA GISSELL+probe Ql (Unsp spec) RSV Abnormal [facility] - Chemistry and C hemistry - challengeOrdered By: Freddy Valle on 10-26-2024 AST [Catalytic activity/Vol] 34 U/L 15-37 [facility] Lactic Acidon 10-26-2024 Lactate [Moles/Vol] 2.3 mmol/L Invalid Interpretation Code 0.4-1.9 [facility] Comment on above: Order Comment: Y Result Comment: Crit ical Result(s) Called at: 23:40:35 10/26/2024 by: Radu Ramírez. LALY ARGUETA ORIENTAL RUG REPAIRER. Results read back by same. Performed By: #### L 503.6005 #### [facility] [address] [place], [place], [id number] Lactic acid measurementOrder ed By: Freddy Valle on 10-26-2024 Lactate [Moles/Vol] 2.3 mmol/L High 0.4-2.0 [facility] Comment on above: Critical Result(s) C alled at: 23:40:35 10/26/2024 by: Radu Ramírez. LALY ARGUETA ORIENTAL RUG REPAIRER. Results read back by same. Lipaseon 10-26-2024 Lipase [Catalytic activity/Vol] 50 U/L Normal 13-75 [facility] Comment on above: Result Comment: Debbie gibbs note: LIPASE revised reference range effective 23. New Lipase methodology. Expected to produce lower values than the previous assay method. NEW Reference Range: 13 - 75 U/L Performed By: #### L 100.0100, L500.2500, L500.3400, L501.2450 ####[facility] [address] [place], [address] Lipase measurementOrdered By : Freddy Valle on 10-26-2024 Lipase [Catalytic activity/Vol] 50 U/L 13-75 [facility] Comment on above: Please note:LIPASE r evised reference range effective 23. New Lipase methodology. Expected to produce lower values than the previous assay method. NEW Reference Range: 13 - 75 U/L Liver Profileon 10-26-2024 Albumin [Mass/Vol] 3.9 g/dL Normal 3.2-5.0 [facility] Comment on above: Performed By: #### L 100.0100, L500.2500, L500.3400, L501.2450 ####[facility] [address] [place], [address] ALK P 98 U/L Normal 45-117 [facility] Comment on above: Performed By: #### L 100.0100, L500.2500, L500.3400, L501.2450 ####[facility] [address] [place], [address] ALT [Catalytic activity/Vol] 21 U/L Normal 16-61 [facility] Comment on above: Performed By: #### L 100.0100, L500.2500, L500.3400, L501.2450 ####[facility] [address] [place], [address] AST [Catalytic activity/Vol] 34 U/L Normal 15-37 [facility] Comment on above: Performed By: #### L 100.0100, L500.2500, L500.3400, L501.2450 ####[facility] [address] [place], [address] Bilirubin [Mass/Vol] 0.70 mg/dL Normal 0.20-1.00 [facility] Comment on above: Result Comment: For patients on eltrombopag therapy, use of Dimension [place] TBIL is not recommended. Performed By: #### L 100.0100, L500.2500, L500.3400, L501.2450 ####[facility] [address] [place], [address] Bilirubin.direct [Mass/Vol] 0.20 mg/dL Normal 0.00-0.30 [facility] Comment on above: Performed By: #### L 100.0100, L500.2500, L500.3400, L501.2450 ####[facility] [address] [place], [address] Globulin (S) [Mass/Vol] 3.8 g/dL Normal 2.2-4.2 [facility] Comment on above: Performed By: #### L 100.0100, L500.2500, L500.3400, L501.2450 ####[facility] [address] [place], [address] T PROT 7.7 g/dL Normal 6.4-8.2 [facility] Comment on above: Performed By: #### L 100.0100, L500.2500, L500.3400, L501.2450 ####[facility] [address] [place], [place], [address] Lymphocytes Auto (Unsp spec) [#/Vol]Ordered By: Freddy Valle on 10-26-2024 Lymphocytes (Bld) [#/Vol] 1.55 10*3/uL 0.83-4.51 [facility] Lymphocytes/100 WBC Auto (Un sp spec)Ordered By: Freddy Valle on 10-26-2024 Lymphocytes/100 WBC (Bld) 18.5 % Low 19-41 [facility] M100.678on 10-26-2024 SARS-CoV-2 (COVID-19) RNA GISSELL+probe Ql (Unsp spec) Pending SARS-CoV-2 (COVID 19) Negative INFLUENZA A Negative INFLUENZA B Negative RSV PCR A Positive A RSV * This is an amended result. * A prior result that was reported as final has been changed. 10/27/[address] [facility] Comment on above: Performed By: #### M 100.678 ####[facility] [address] [place], [place], [address] MCV (mean corpuscular volume ) determinationOrdered By: Freddy Valle on 10-26-2024 MCV (RBC) [Entitic vol] 88.2 fL 80-94 [facility] Mean corpuscular hemoglobin (MCH) determinationOrdered By: Freddy Valle on 10-26-2024 MCH (RBC) [Entitic mass] 29.9 pg 27.0-32.0 [facility] Mean corpuscular hemoglobin concentration (MCHC) determinationOrdered By: Freddy Valle on 10-26-2024 MCHC (RBC) [Mass/Vol] 33.9 g/dL 32-36 [facility] Mean platelet volume determi nationOrdered By: Freddy Valle on 10-26-2024 Platelet mean volume (Bld) [Entitic vol] 9.2 fL 6.2-12.0 [facility] Monocyte percentageOrdered B y: Freddy Valle on 10-26-2024 Monocytes/100 WBC (Bld) 9.3 % 0-10 [facility] Neutrophil percentageOrdered By: Freddy Valle on 10-26-2024 Neutrophils/100 WBC (Bld) 70.6 % High 47-70 [facility] Nucleated red blood cell per centageOrdered By: Freddy Valle on 10-26-2024 Nucleated RBC/100 WBC (Bld) [Ratio] 0 % 0-5 [facility] Platelet countOrdered By: Evita Valle on 10-26-2024 Platelets (Bld) [#/Vol] 224 10*3/uL 150-450 [facility] Potassium measurementOrdered By: Freddy Valle on 10-26-2024 Potassium [Moles/Vol] 4.0 mmol/L 3.5-5.1 [facility] RBC Auto (Bld) [#/Vol]Ordere d By: Freddy Valle on 10-26-2024 RBC (Bld) [#/Vol] 5.49 10*6/uL 4.6-6.2 [facility] Serum anion gap measurementO rdered By: Freddy Valle on 10-26-2024 Anion gap [Moles/Vol] 12 mmol/L 5-15 [facility] Serum globulin measurementOr dered By: Freddy Valle on 10-26-2024 Globulin (S) [Mass/Vol] 3.8 g/dL 2.2-4.2 [facility] Serum or plasma alanine jara otransferase (ALT) measurementOrdered By: Freddy Valle on 10-26-2024 ALT [Catalytic activity/Vol] 21 U/L 16-61 [facility] Serum or plasma albumin jessie urement (mass/volume)Ordered By: Freddy Valle on 10-26-2024 Albumin [Mass/Vol] 3.9 g/dL 3.2-5.0 [facility] Serum or plasma alkaline davon sphatase measurementOrdered By: Freddy Valle on 10-26-2024 ALP [Catalytic activity/Vol] 98 U/L 45-117 [facility] Serum or plasma calcium jessie urement (mass/volume)Ordered By: Freddy Valle on 10-26-2024 Calcium [Mass/Vol] 9.6 mg/dL 8.5-10.1 [facility] Serum or plasma creatinine m easurement (mass/volume)Ordered By: Freddy Valle on 10-26-2024 Creatinine [Mass/Vol] 1.19 mg/dL 0.70-1.30 [facility] Comment on above: The validity of the calculated GFR & GFRAA in patients over 70 years has not been determined. Clinical correlation is essential. Serum or plasma urea nitroge n measurement (mass/volume)Ordered By: Freddy Valle on 10-26-2024 Urea nitrogen [Mass/Vol] 28 mg/dL High 7-18 [facility] Sodium levelOrdered By: Juan Pablo Valle on 10-26-2024 Sodium [Moles/Vol] 140 mmol/L 136-145 [facility] Total proteinOrdered By: Oumar Valle on 10-26-2024 Protein [Mass/Vol] 7.7 g/dL 6.4-8.2 [facility] White blood cell (WBC) count Ordered By: Freddy Valle on 10-26-2024 WBC (Bld) [#/Vol] 8.4 10*3/uL 4.4-11.0 [facility] Lower GI hemoglobin IA Ql (S tl)Ordered By: Freddy Valle on 10-25-2024 Stool Occult Blood (CEM) Positive Abnormal [facility] CTA ABD/PELV WO/W IVCONon CTA ABD/PELV WO/W IVCON * * *Final Report* * * DATE OF EXAM: Oct 21 2024 9:44AM [facility] 0467 - CTA ABD/PELV WO/W IVCON / PROCEDURE REASON: Abdominal aortic aneurysm (AAA) without rupture, unspecified part (HCC) * * * * Physician Interpretation * * * * CT ANGIOGRAM OF THE ABDOMEN, PELVIS HISTORY: 73-year-old male with history of 5.8 cm juxtarenal AAA status post open AAA repair with MAGGY reimplantation 09/05/2023. TECHNIQUE: High-resolution contrast-enhanced helical CT of the abdomen, pelvis and both lower extremities was performed, timed to the arterial phase. 3-D processing was performed by the physician on an independent work station, with MIP and volume-rendering techniques. Total of 100 ml of Omnipaque 350 was injected IV during the examination. The study was performed without oral contrast. The patient tolerated the injection without complications. Dose-Length Product (DLP): 1592 mGy*cm. CT Dose Reduction Employed: Automated exposure control(AEC) and iterative recon RESULT: COMPARISON: CTA abdomen/pelvis 08/13/2023. LIMITATIONS: None ABDOMEN: Rn Team Leader (topogram) images: No additional findings. Images of the aorta demonstrate interval repair and resolution of 5.8 fusiform infrarenal aortic aneurysm MAGGY reimplantation just distal to the aortic bifurcation. Scattered paraaortic surgical clips. Reimplantation origin of the MAGGY is tortuous with moderate/severe stenosis, distal perfusion maintained. Juxtarenal Abdominal Aorta: Normal size; Diameter (level of SMA): 2.4 cm No significant interval change, previously measuring 2.5 cm. No wall changes Celiac artery demonstrates atherosclerosis at the origin with no no significant focal stenosis. Superior mesenteric artery demonstrates atherosclerosis detorsion with no no significant focal stenosis. Inferior mesenteric artery reimplanted distal to the aortic bifurcation and demonstrates no significant stenosis. There are two right renal arteries. Right renal artery demonstrates no significant focal stenosis. There is a single renal vein which is patent. There is a single left renal artery. Left renal artery demonstrates no significant focal stenosis. There is a single renal vein which is patent. NONVASCULAR FINDINGS: Lower thorax: Unremarkable. Liver: No mass. Biliary: No bile duct dilation. Gallbladder is unremarkable. Spleen: No mass. No splenomegaly. Pancreas: No mass or duct dilation. Adrenals: No mass. Kidneys: 5.7 right renal simple cyst. Bilateral nephrolithiasis without hydronephrosis. Retroperitoneum: Unremarkable GI tract: No dilation or wall thickening. Diverticulosis. Appendix is normal. Lymph nodes: No abdominal or pelvic lymphadenopathy. Mesentery/Peritoneum: No ascites or mass. Pelvis: No mass, ascites or fluid collection. Bones/Soft Tissues: Degenerative changes. IMPRESSION: 1. Interval repair of infrarenal aortic aneurysm with MAGGY reimplantation. 2. Reimplanted origin of the MAGGY is tortuous with at least moderate segmental narrowing, distal perfusion maintained. 3. No residual aneurysm or acute aortic pathology. 4. Bilateral nephrolithiasis without hydronephrosis. Sinter Feeder: PSCB Transcribe Date/Time: Oct 21 2024 10:12A Dictated by : MAXIMILIANO MCCAULYE MD This examination was interpreted and the report reviewed and electronically signed by: SETH ABEBE MD on Oct 21 2024 11:03AM EST [id number] Normal [facility] CTA Abdominal vessels and Pe lvis vessels WO and W contrast Jayesh 10-21-2024 IMPRESSION: 1. Interval repair of infrarenal aortic aneurysm with MAGGY reimplantation. 2. Reimplanted origin of the MAGGY is tortuous with at least moderate segmental narrowing, distal perfusion maintained. 3. No residual aneurysm or acute aortic pathology. 4. Bilateral nephrolithiasis without hydronephrosis. Sinter Feeder: PSCChristian Transcribe Date/Time: Oct 21 2024 10:12A Dictated by : MAXIMILIANO MCCAULEY MD This examination was interpreted and the report reviewed and electronically signed by: SETH ABEBE MD on Oct 21 2024 11:03AM EST DIVISION OF RADIOLOGY * * *Final Report* * * DATE OF EXAM: Oct 21 2024 9:44AM [facility] 0467 - CTA ABD/PELV WO/W IVCON / PROCEDURE REASON: Abdominal aortic aneurysm (AAA) without rupture, unspecified part (HCC) * * * * Physician Interpretation * * * * CT ANGIOGRAM OF THE ABDOMEN, PELVIS HISTORY: 73-year-old male with history of 5.8 cm juxtarenal AAA status post open AAA repair with MAGGY reimplantation 09/05/2023. TECHNIQUE: High-resolution contrast-enhanced helical CT of the abdomen, pelvis and both lower extremities was performed, timed to the arterial phase. 3-D processing was performed by the physician on an independent work station, with MIP and volume-rendering techniques. Total of 100 ml of Omnipaque 350 was injected IV during the examination. The study was performed without oral contrast. The patient tolerated the injection without complications. Dose-Length Product (DLP): 1592 mGy*cm. CT Dose Reduction Employed: Automated exposure control(AEC) and iterative recon RESULT: COMPARISON: CTA abdomen/pelvis 08/13/2023. LIMITATIONS: None ABDOMEN: Rn Team Leader (topogram) images: No additional findings. Images of the aorta demonstrate interval repair and resolution of 5.8 fusiform infrarenal aortic aneurysm MAGGY reimplantation just distal to the aortic bifurcation. Scattered paraaortic surgical clips. Reimplantation origin of the MAGGY is tortuous with moderate/severe stenosis, distal perfusion maintained. Juxtarenal Abdominal Aorta: Normal size; Diameter (level of SMA): 2.4 cm No significant interval change, previously measuring 2.5 cm. No wall changes Celiac artery demonstrates atherosclerosis at the origin with no no significant focal stenosis. Superior mesenteric artery demonstrates atherosclerosis detorsion with no no significant focal stenosis. Inferior mesenteric artery reimplanted distal to the aortic bifurcation and demonstrates no significant stenosis. There are two right renal arteries. Right renal artery demonstrates no significant focal stenosis. There is a single renal vein which is patent. There is a single left renal artery. Left renal artery demonstrates no significant focal stenosis. There is a single renal vein which is patent. NONVASCULAR FINDINGS: Lower thorax: Unremarkable. Liver: No mass. Biliary: No bile duct dilation. Gallbladder is unremarkable. Spleen: No mass. No splenomegaly. Pancreas: No mass or duct dilation. Adrenals: No mass. Kidneys: 5.7 right renal simple cyst. Bilateral nephrolithiasis without hydronephrosis. Retroperitoneum: Unremarkable GI tract: No dilation or wall thickening. Diverticulosis. Appendix is normal. Lymph nodes: No abdominal or pelvic lymphadenopathy. Mesentery/Peritoneum: No ascites or mass. Pelvis: No mass, ascites or fluid collection. Bones/Soft Tissues: Degenerative changes. DIVISION OF RADIOLOGY Provider, [facility] - 10/21/2024 * * *Final Report* * * DATE OF EXAM: Oct 21 2024 9:44AM [facility] 0467 - CTA ABD/PELV WO/W IVCON / PROCEDURE REASON: Abdominal aortic aneurysm (AAA) without rupture, unspecified part (HCC) * * * * Physician Interpretation * * * * CT ANGIOGRAM OF THE ABDOMEN, PELVIS HISTORY: 73-year-old male with history of 5.8 cm juxtarenal AAA status post open AAA repair with MAGGY reimplantation 09/05/2023. TECHNIQUE: High-resolution contrast-enhanced helical CT of the abdomen, pelvis and both lower extremities was performed, timed to the arterial phase. 3-D processing was performed by the physician on an independent work station, with MIP and volume-rendering techniques. Total of 100 ml of Omnipaque 350 was injected IV during the examination. The study was performed without oral contrast. The patient tolerated the injection without complications. Dose-Length Product (DLP): 1592 mGy*cm. CT Dose Reduction Employed: Automated exposure control(AEC) and iterative recon RESULT: COMPARISON: CTA abdomen/pelvis 08/13/2023. LIMITATIONS: None ABDOMEN: Rn Team Leader (topogram) images: No additional findings. Images of the aorta demonstrate interval repair and resolution of 5.8 fusiform infrarenal aortic aneurysm MAGGY reimplantation just distal to the aortic bifurcation. Scattered paraaortic surgical clips. Reimplantation origin of the MAGGY is tortuous with moderate/severe stenosis, distal perfusion maintained. Juxtarenal Abdominal Aorta: Normal size; Diameter (level of SMA): 2.4 cm No significant interval change, previously measuring 2.5 cm. No wall changes Celiac artery demonstrates atherosclerosis at the origin with no no significant focal stenosis. Superior mesenteric artery demonstrates atherosclerosis detorsion with no no significant focal stenosis. Inferior mesenteric artery reimplanted distal to the aortic bifurcation and demonstrates no significant stenosis. There are two right renal arteries. Right renal artery demonstrates no significant focal stenosis. There is a single renal vein which is patent. There is a single left renal artery. Left renal artery demonstrates no significant focal stenosis. There is a single renal vein which is patent. NONVASCULAR FINDINGS: Lower thorax: Unremarkable. Liver: No mass. Biliary: No bile duct dilation. Gallbladder is unremarkable. Spleen: No mass. No splenomegaly. Pancreas: No mass or duct dilation. Adrenals: No mass. Kidneys: 5.7 right renal simple cyst. Bilateral nephrolithiasis without hydronephrosis. Retroperitoneum: Unremarkable GI tract: No dilation or wall thickening. Diverticulosis. Appendix is normal. Lymph nodes: No abdominal or pelvic lymphadenopathy. Mesentery/Peritoneum: No ascites or mass. Pelvis: No mass, ascites or fluid collection. Bones/Soft Tissues: Degenerative changes. IMPRESSION IMPRESSION: 1. Interval repair of infrarenal aortic aneurysm with MAGGY reimplantation. 2. Reimplanted origin of the MAGGY is tortuous with at least moderate segmental narrowing, distal perfusion maintained. 3. No residual aneurysm or acute aortic pathology. 4. Bilateral nephrolithiasis without hydronephrosis. Sinter Feeder: HAILEY Transcribe Date/Time: Oct 21 2024 10:12A Dictated by : MAXIMILIANO MCCAULEY MD This examination was interpreted and the report reviewed and electronically signed by: SETH ABEBE MD on Oct 21 2024 11:03AM EST [facility] Radiology Study observation (narrative) [facility] CTA Abdominal vessels and Pe lvis vessels WO and W contrast IVOrdered By: Ccf Provider on 10-21-[address] [facility] CREATININE BLDOrdered By: Todd Graff on 08-22-2024 Creatinine [Mass/Vol] 0.84 mg/dL 0.73 - 1.22 mg/dL [facility] GFR/1.73 sq M.predicted among non-blacks MDRD (S/P/Bld) [Vol rate/Area] 91 mL/min/{1.73_m2} - PINF [facility] Comment on above: Estimated Glomerular Filtration Rate (eGFR) is calculated using the 2020 CKD-EPI creatinine equation. This equation utilizes serum creatinine, sex, and age as parameters. The creatinine assay has traceable calibration to isotope dilution-mass spectrometry. Refer to KDIGO guidelines for clinical interpretation. In patients with unstable renal function, e.g. those with acute kidney injury, the eGFR may not accurately reflect actual GFR. Interpretation and review of laboratory results Normal [facility] CREATININE BLDon 08-22-2024 Creatinine [Mass/Vol] 0.84 mg/dL Normal 0.73-1.22 [facility] Comment on above: Order Comment: Speci men Type: BLOOD SPECIMENOrdering Facility: [facility] Address: [address] [place] [address] Performed By: #### C VFLRS #### [facility] CLIA [id number] [address] [place] [address] [place] Creatinine and Glomerular filtration rate.predicted panel (S/P/Bld) 91 mL/min/1.73m??? Normal >=60 [facility] Comment on above: Order Comment: Speci men Type: BLOOD SPECIMENOrdering Facility: [facility] Address: [address] [place] [address] Result Comment: Jonelle mated Glomerular Filtration Rate (eGFR) is calculated using the 2020 CKD-EPI creatinine equation. This equation utilizes serum creatinine, sex, and age as parameters. The creatinine assay has traceable calibration to isotope dilution-mass spectrometry. Refer to KDIGO guidelines for clinical interpretation. In patients with unstable renal function, e.g. those with acute kidney injury, the eGFR may not accurately reflect actual GFR. Performed By: #### C VFLRS #### [facility] CLIA [id number] [address] [id number] [facility] Jamie 07-15-2024 CNPN Telephone (FAMWS) KRIS COX ([id number]) 1950 M Date Time Provider Department 07/15/24 SAMUEL FOY [facility] During your visit today, we recorded the following information about you: Ml Alba MA 07/15/2024 9:07 AM Signed ----- Message from Melanie Livingston APRN.PROFILE STITCHING MACHINE OPERATOR sent at 07/15/2024 7:07 AM EDT ----- Cholesterol in good range. Continue current medication, diet and exercise. Melanie Livingston APRN.Ml Krishna MA 07/15/2024 9:08 AM Signed Solartrechart message sent to pt notifying him of results and recommendations below from Provider. Ml Alba MA Allergies As of Date: 07/15/2024 (No Known Allergies) Date Reviewed: 07/11/2024 Reviewed by: Avelina Helm LPN - Fully Assessed Reason for Visit: Results [95] Prescriptions as of 07/15/2024 - metoprolol succinate ER (TOPROL XL) 100 mg Take 1 tablet by mouth once daily. - benzonatate (TESSALON PERLE) 100 mg capsule Take 1 capsule by mouth three times a day as needed. - atorvastatin (LIPITOR) 20 mg tablet Take 1 tablet by mouth once daily. For cholesterol - allopurinol (ZYLOPRIM) 100 mg tablet Take 2 tablets by mouth once daily. For gout. - benzonatate (TESSALON PERLES) 100 mg capsule Take 1 capsule by mouth three times a day as needed for cough. - amLODIPine (NORVASC) 5 mg tablet Take 1 tablet by mouth once daily. - amLODIPine (NORVASC) 2.5 mg tablet Take one tablet daily along with 5 mg tablet - lisinopril (ZESTRIL) 40 mg tablet Take 1 tablet by mouth once daily. - pantoprazole DR (PROTONIX) 40 mg tablet Take 1 tablet by mouth two times a day. Take on empty stomach, 1/2 hr before meal. - acetaminophen (TYLENOL) 325 mg tablet Take 1 tablet by mouth every 4 hours as needed for pain. - aspirin 81 mg chewable tablet Take 1 tablet by mouth once daily. - colchicine 0.6 mg tablet Take 2 tabs by mouth, followed by 1 tab one hour later for gout flare. May repeat in 1 week. - naproxen (NAPROSYN) 500 mg tablet Take 1 tablet by mouth twice daily as needed (gout flare). Take with food. - meclizine (ANTIVERT) 25 mg tab Take 1 tablet by mouth twice daily as needed. TAKE 1 TABLET BY MOUTH NEEDED. USES FOR TRAVELING ONLY. Problem List As Of Date 07/15/2024 Noted Resolved Hypertension [I10] 11/12/2010 Hyperlipidemia [E78.5] 11/12/2010 GERD (gastroesophageal reflux disease) [K21.9] 11/12/2010 Acute gastritis without mention of hemorrhage [*01/30/2011 Esophagitis, unspecified [K20.90] 01/30/2011 Vertigo [R42] 2011 Coronary artery disease [I25.10] 07/25/2011 Trigger ring finger of right hand [M65.341] 10/31/2011 Diverticulosis of colon (without mention of hem*10/25/2012 Gastric ulcer, unspecified as acute or chronic,*10/25/2012 Multani's esophagus [K22.70] 10/25/2012 Pain in joint, shoulder region [M25.519] 11/05/2013 Trigger middle finger of left hand [M65.332] 12/16/2013 AAA (abdominal aortic aneurysm) (HCC) [I71.40] 06/23/2014 Erectile dysfunction [N52.9] Overweight (BMI 25.0-29.9) [E66.3] Impaired fasting glucose [R73.01] CAD (coronary artery disease) [I25.10] 2002 AAA (abdominal aortic aneurysm) without rupture*09/05/2023 Acute post-operative pain [G89.18] 09/05/2023 Other arterial embolism and thrombosis of abdom*01/09/2024 Encounter Status:Closed by ML ALBA on 07/15/24 Normal [facility] Lipid 1996 panelon Cholesterol [Mass/Vol] 131 mg/dL Normal <200 [facility] Comment on above: Order Comment: Alex ortiz Type: BLOOD SPECIMENOrdering Facility: [facility] Address: [address] [place] [address] Result Comment: <200 mg/dL, Desirable 200-239 mg/dL, Borderline high >239 mg/dL, High Performed By: #### C VFLRS #### [facility] CLIA [id number] [address] [place] [address] [place] Cholesterol in HDL [Mass/Vol] 39 mg/dL Low >39 [facility] Comment on above: Order Comment: Alex ortiz Type: BLOOD SPECIMENOrdering Facility: [facility] Address: [address] [place] [address] Result Comment: 40-5 9 mg/dL, Acceptable >59 mg/dL, High: Negative risk factor for coronary heart disease <40 mg/dL, Low: Positive risk factor for coronary heart disease Performed By: #### C VFLRS #### [facility] CLIA [id number] [address] [place] [address] [place] Cholesterol in LDL [Mass/Vol] 70 mg/dL Normal <100 [facility] Comment on above: Order Comment: Alex ortiz Type: BLOOD SPECIMENOrdering Facility: [facility] Address: [address] [place] [address] Result Comment: <100 mg/dL, Optimal 100-129 mg/dL, Near optimal/above optimal 130-159 mg/dL, Borderline high 160-189 mg/dL, High >189 mg/dL, Very high Secondary prevention optimal LDL Cholesterol levels are recommended to be < 70 mg/dL Performed By: #### C VFLRS #### [facility] CLIA [id number] [address] [place] [address] [place] Cholesterol in LDL/Cholesterol in HDL [Mass ratio] 1.79 {ratio} Normal <2.54 [facility] Comment on above: Order Comment: Speci men Type: BLOOD SPECIMENOrdering Facility: [facility] Address: [address] [place] [address] Result Comment: Refe rence: 1. National Cholesterol Education Program ATP III Guideline At-A-Glance Quick Desk Reference: National Heart, Lung, and Blood [place]. National Institutes of Health. 2001: NIH Publication No. 01-3305. 2. An International Atherosclerosis Society position paper: global recommendations for the management of dyslipidemia: executive summary, Atherosclerosis. 2014: 232(2):410-413. Performed By: #### C VFLRS #### [facility] [place] [id number] [address] [place] [address] [place] Cholesterol in VLDL [Mass/Vol] 22 mg/dL Normal <30 [facility] Comment on above: Order Comment: Dixoni men Type: BLOOD SPECIMENOrdering Facility: [facility] Address: [address] [place] [address] Performed By: #### C VFLRS #### [facility] [place] [id number] [address] [place] [address] [place] Cholesterol non HDL [Mass/Vol] 92 mg/dL Normal <130 [facility] Comment on above: Order Comment: Speci men Type: BLOOD SPECIMENOrdering Facility: [facility] Address: [address] [place] [address] Result Comment: <130 mg/dL, Optimal 130-159 mg/dL, Near optimal/above optimal 160-189 mg/dL, Borderline high 190-219 mg/dL, High >219 mg/dL, Very high Secondary prevention optimal non HDL Cholesterol levels are recommended to be <100 mg/dL Performed By: #### C VFLRS #### [facility] CLIA [id number] [address] [place] [address] [place] Cholesterol.total/Chol esterol in HDL [Mass ratio] 3.36 {ratio} Normal <5.10 [facility] Comment on above: Order Comment: Speci men Type: BLOOD SPECIMENOrdering Facility: [facility] Address: [address] [place] [address] Performed By: #### C VFLRS #### [facility] CLIA [id number] [address] [place] [address] [place] FASTING TIME 10 hrs Normal [facility] Comment on above: Order Comment: Speci men Type: BLOOD SPECIMENOrdering Facility: [facility] Address: [address] [place] [address] Performed By: #### C VFLRS #### [facility] [place] [id number] [address] [place] [address] [place] Triglyceride [Mass/Vol] 109 mg/dL Normal <150 [facility] Comment on above: Order Comment: Speci men Type: BLOOD SPECIMENOrdering Facility: [facility] Address: [address] [place] [address] Result Comment: <150 mg/dL, Normal 150-199 mg/dL, Borderline high 200-499 mg/dL, High >499 mg/dL, Very high Performed By: #### C VFLRS #### [facility] [place] [id number] [address] [place] [address] [place] CNOVon 07-11-2024 CNOV Office Visit (FAMPWS ) KRIS COX ([id number]) 1950 Date Time Provider Department 07/11/24 7:20 AM MELANIE LIVINGSTON During your visit today, we recorded the following information about you: Pulse Respiration Blood pressure Weight 75/minute 16/minute 122/70 69 kg Melanie Livignston APRN.CNP 07/11/2024 8:32 AM Signed 07/11/2024 Patient presents with: F/U 6 months SUBJECTIVE: This is a 74 year old that is here today for Above Complaints. Since last office appointment has been in good health without ER visits or hospitalizations. HTN: Patient is compliant with meds Yes Monitors bp at home: No. Denies side effects: Yes. Chest pain: No. Dyspnea: No. Edema: No. Palpitations: No. Syncope: No. Headache: No. Dizziness: No. HYPERLIPIDEMIA: Patient is taking medications: Yes. Patient is watching diet: No. Patient denies myalgias: Yes. Patient denies gi upset: Yes GOUT: taking Allopurinol as prescribed. No gout flares. CAD: does not follow with cardiology. Stress test a year ago WNL. Taking medications as prescribed without side effects. Follows with vascular for repair of infrarenal AAA repair which was completed on 09/05/2023- will have follow-up in October Seen a couple of weeks ago for diarrhea he developed after traveling to [place]. Has resolved. PAST MEDICAL HISTORY Diagnosis Date AAA (abdominal aortic aneurysm) (HCC) Dr. Araujo- Multani's esophagus 2009 Needs repeat EGD 04/2023. CAD (coronary artery disease) 2002 stress test abnormal Diverticulosis Duodenal stricture Friend Duodenitis without mention of hemorrhage Erectile dysfunction Esophagitis, unspecified Gout History of colonoscopy HTN (hypertension) Hyperlipidemia Impaired fasting glucose Overweight (BMI 25.0-29.9) Vertigo ALLERGIES Patient has no known allergies. MEDICATIONS Current Outpatient Medications Medication Sig benzonatate (TESSALON PERLE) 100 mg capsule Take 1 capsule by mouth three times a day as needed. atorvastatin (LIPITOR) 20 mg tablet Take 1 tablet by mouth once daily. For cholesterol allopurinol (ZYLOPRIM) 100 mg tablet Take 2 tablets by mouth once daily. For gout. benzonatate (TESSALON PERLES) 100 mg capsule Take 1 capsule by mouth three times a day as needed for cough. amLODIPine (NORVASC) 5 mg tablet Take 1 tablet by mouth once daily. amLODIPine (NORVASC) 2.5 mg tablet Take one tablet daily along with 5 mg tablet lisinopril (ZESTRIL) 40 mg tablet Take 1 tablet by mouth once daily. pantoprazole DR (PROTONIX) 40 mg tablet Take 1 tablet by mouth two times a day. Take on empty stomach, 1/2 hr before meal. metoprolol succinate ER (TOPROL XL) 100 mg Take 1 tablet by mouth once daily. acetaminophen (TYLENOL) 325 mg tablet Take 1 tablet by mouth every 4 hours as needed for pain. aspirin 81 mg chewable tablet Take 1 tablet by mouth once daily. colchicine 0.6 mg tablet Take 2 tabs by mouth, followed by 1 tab one hour later for gout flare. May repeat in 1 week. naproxen (NAPROSYN) 500 mg tablet Take 1 tablet by mouth twice daily as needed (gout flare). Take with food. meclizine (ANTIVERT) 25 mg tab Take 1 tablet by mouth twice daily as needed. TAKE 1 TABLET BY MOUTH NEEDED. USES FOR TRAVELING ONLY. No current facility-administered medications for this visit. Medications and allergies reviewed by this provider. SOCIAL HISTORY Social History Tobacco Use Smoking status: Former Current packs/day: 0.00 Average packs/day: 1 pack/day for 15.0 years (15.0 ttl pk-yrs) Types: Cigarettes Start date: 06/08/1987 Quit date: 06/08/2002 Years since quittin.1 Smokeless tobacco: Never Vaping Use Vaping status: Never Used Substance Use Topics Alcohol use: Yes Comment: very seldom, not even 1 drink per month Drug use: No REVIEW OF SYSTEMS All other reviewed and negative other than HPI. OBJECTIVE: BP 122/70 Pulse 75 Resp 16 Wt 69 kg (152 lb 1.9 oz) SpO2 96% BMI 23.82 kg/m? . Vital signs reviewed by this provider. APPEARANCE Well appearing, alert, in no acute distress, well-hydrated, well nourished. EYES conjunctiva and sclera normal. HEART RRR with normal S1 and S2, no murmurs, no gallops, no JVD appreciated LUNG clear to auscultation. No wheezes, rhonchi or rales EXTREMITIES Extremities normal, No deformities, No skin discoloration, and No edema SKIN Skin color, texture, turgor normal, no suspicious rashes or lesions to exposed skin Latest Ref Rng 07/02/2024 WBC 3.70 - 11.00 k/uL 11.46 (H) RBC 4.20 - 6.00 m/uL 4.65 Hemoglobin 13.0 - 17.0 g/dL 13.3 Hematocrit 39.0 - 51.0 % 41.3 MCV 80.0 - 100.0 fL 88.8 MCH 26.0 - 34.0 pg 28.6 MCHC 30.5 - 36.0 g/dL 32.2 RDW-CV 11.5 - 15.0 % 15.9 (H) Platelet Count 150 - 400 k/uL 378 MPV 9.0 - 12.7 fL 8.8 (L) Neut% % 72.9 Abs Neut (ANC) 1.45 - 7.50 k/uL 8.35 (H) Lymph% (more content not included)... Normal [facility] KR[facility] ([id number]) 1950 M Date Time Provider Department [facility]/08[facility] During your visit today, we recorded the following information about you: Patricia Fraser LPN 07/08/2024 2:40 PM Signed ----- Message from Samuel Foy MD sent at 07/08/2024 1:02 PM EDT ----- Stool for ova and parasites is negative. Any improvement in his diarrhea with the azithromycin? Patricia Fraser LPN 07/08/2024 2:44 PM Signed Phoned patient and went over results, notes from Dr Foy with understanding. Patient said diarrhea is 80% better, he has follow up appt on 07/11 with Melanie. Samuel Foy MD 07/08/2024 3:27 PM Signed Reviewed. Allergies As of Date: 07/08/2024 (No Known Allergies) Date Reviewed: 07/02/2024 Reviewed by: Maury Teixeira LPN - Fully Assessed Reason for Visit: Results [95] Prescriptions as of 07/18/2024 - metoprolol succinate ER (TOPROL XL) 100 mg Take 1 tablet by mouth once daily. - benzonatate (TESSALON PERLE) 100 mg capsule Take 1 capsule by mouth three times a day as needed. - atorvastatin (LIPITOR) 20 mg tablet Take 1 tablet by mouth once daily. For cholesterol - allopurinol (ZYLOPRIM) 100 mg tablet Take 2 tablets by mouth once daily. For gout. - benzonatate (TESSALON PERLES) 100 mg capsule Take 1 capsule by mouth three times a day as needed for cough. - amLODIPine (NORVASC) 5 mg tablet Take 1 tablet by mouth once daily. - amLODIPine (NORVASC) 2.5 mg tablet Take one tablet daily along with 5 mg tablet - lisinopril (ZESTRIL) 40 mg tablet Take 1 tablet by mouth once daily. - pantoprazole DR (PROTONIX) 40 mg tablet Take 1 tablet by mouth two times a day. Take on empty stomach, 1/2 hr before meal. - acetaminophen (TYLENOL) 325 mg tablet Take 1 tablet by mouth every 4 hours as needed for pain. - aspirin 81 mg chewable tablet Take 1 tablet by mouth once daily. - colchicine 0.6 mg tablet Take 2 tabs by mouth, followed by 1 tab one hour later for gout flare. May repeat in 1 week. - naproxen (NAPROSYN) 500 mg tablet Take 1 tablet by mouth twice daily as needed (gout flare). Take with food. - meclizine (ANTIVERT) 25 mg tab Take 1 tablet by mouth twice daily as needed. TAKE 1 TABLET BY MOUTH NEEDED. USES FOR TRAVELING ONLY. Problem List As Of Date 07/08/2024 Noted Resolved Hypertension [I10] 11/12/2010 Hyperlipidemia [E78.5] 11/12/2010 GERD (gastroesophageal reflux disease) [K21.9] 11/12/2010 Acute gastritis without mention of hemorrhage [*01/30/2011 Esophagitis, unspecified [K20.90] 01/30/2011 Vertigo [R42] 2011 Coronary artery disease [I25.10] 07/25/2011 Trigger ring finger of right hand [M65.341] 10/31/2011 Diverticulosis of colon (without mention of hem*10/25/2012 Gastric ulcer, unspecified as acute or chronic,*10/25/2012 Multani's esophagus [K22.70] 10/25/2012 Pain in joint, shoulder region [M25.519] 11/05/2013 Trigger middle finger of left hand [M65.332] 12/16/2013 AAA (abdominal aortic aneurysm) ([facility]) [I71.40] 06/23/2014 Erectile dysfunction [N52.9] Overweight (BMI 25.0-29.9) [E66.3] Impaired fasting glucose [R73.01] CAD (coronary artery disease) [I25.10] 2002 AAA (abdominal aortic aneurysm) without rupture*09/05/2023 Acute post-operative pain [G89.18] 09/05/2023 Other arterial embolism and thrombosis of abdom*01/09/2024 Encounter Status:Closed by PATRICIA FRASER on 07/18/24 [facility] 07-03-2024 CNPN Telephone (FAMPWS) KRIS COX ([id number]) 1950 Date Time Provider Department 07/03/24 [facility] During your visit today, we recorded the following information about you: Samuel Foy MD 07/03/2024 8:42 AM Signed Stool culture positive for campylobacter. Negative testing for C diff. Awaiting other cultures still. Will treat with Azithromycin 500 mg daily x 3 days while awaiting other results. Call if symptoms not improving in 5-7 days. Kasey Berg RN 07/03/2024 8:55 AM Signed Called and left a voicemail for the Patient to call back and ask for a nurse to receive the providers message. ELVIS Miller, Krish Díaz LPN 07/03/2024 9:56 AM Signed Spoke with pt and information listed below given. Pt verbalizes understanding. Krish Sher LPN Allergies As of Date: 07/03/2024 (No Known Allergies) Date Reviewed: 07/02/2024 Reviewed by: Maury Teixeira LPN - Fully Assessed Reason for Visit: Results [95] Order(s):azithromycin (ZITHROMAX) 500 mg tabletTake 1 tablet by mouth once daily for 3 days.Disp: 3 tabletRfl: 0 Prescriptions as of 07/03/2024 - azithromycin (ZITHROMAX) 500 mg tablet Take 1 tablet by mouth once daily for 3 days. - benzonatate (TESSALON PERLE) 100 mg capsule Take 1 capsule by mouth three times a day as needed. - atorvastatin (LIPITOR) 20 mg tablet Take 1 tablet by mouth once daily. For cholesterol - allopurinol (ZYLOPRIM) 100 mg tablet Take 2 tablets by mouth once daily. For gout. - benzonatate (TESSALON PERLES) 100 mg capsule Take 1 capsule by mouth three times a day as needed for cough. - amLODIPine (NORVASC) 5 mg tablet Take 1 tablet by mouth once daily. - amLODIPine (NORVASC) 2.5 mg tablet Take one tablet daily along with 5 mg tablet - lisinopril (ZESTRIL) 40 mg tablet Take 1 tablet by mouth once daily. - pantoprazole DR (PROTONIX) 40 mg tablet Take 1 tablet by mouth two times a day. Take on empty stomach, 1/2 hr before meal. - metoprolol succinate ER (TOPROL XL) 100 mg Take 1 tablet by mouth once daily. - acetaminophen (TYLENOL) 325 mg tablet Take 1 tablet by mouth every 4 hours as needed for pain. - aspirin 81 mg chewable tablet Take 1 tablet by mouth once daily. - colchicine 0.6 mg tablet Take 2 tabs by mouth, followed by 1 tab one hour later for gout flare. May repeat in 1 week. - naproxen (NAPROSYN) 500 mg tablet Take 1 tablet by mouth twice daily as needed (gout flare). Take with food. - meclizine (ANTIVERT) 25 mg tab Take 1 tablet by mouth twice daily as needed. TAKE 1 TABLET BY MOUTH NEEDED. USES FOR TRAVELING ONLY. Problem List As Of Date 07/03/2024 Noted Resolved Hypertension [I10] 11/12/2010 Hyperlipidemia [E78.5] 11/12/2010 GERD (gastroesophageal reflux disease) [K21.9] 11/12/2010 Acute gastritis without mention of hemorrhage [*01/30/2011 Esophagitis, unspecified [K20.90] 01/30/2011 Vertigo [R42] 2011 Coronary artery disease [I25.10] 07/25/2011 Trigger ring finger of right hand [M65.341] 10/31/2011 Diverticulosis of colon (without mention of hem*10/25/2012 Gastric ulcer, unspecified as acute or chronic,*10/25/2012 Multani's esophagus [K22.70] 10/25/2012 Pain in joint, shoulder region [M25.519] 11/05/2013 Trigger middle finger of left hand [M65.332] 12/16/2013 AAA (abdominal aortic aneurysm) ([facility]) [I71.40] 06/23/2014 Erectile dysfunction [N52.9] Overweight (BMI 25.0-29.9) [E66.3] Impaired fasting glucose [R73.01] CAD (coronary artery disease) [I25.10] 2002 AAA (abdominal aortic aneurysm) without rupture*09/05/2023 Acute post-operative pain [G89.18] 09/05/2023 Other arterial embolism and thrombosis of abdom*01/09/2024 Prescriptions ordered this encounter Disp Refills Start End AZITHROMYCIN 500 MG TABLET 3 ta* 0 07/03/2024 07/06/2024 Route: ORAL Sig: Take 1 tablet by mouth once daily for 3 days. Encounter Status:Closed by KRISH SHER on 07/03/24 [facility] Telephone (FAMPWS) KRIS COX ([id number]) 1950 M Date Time Provider Department 07/03/24 SAMUEL FOY During your visit today, we recorded the following information about you: Shira Noel LPN 07/03/2024 11:10 AM Signed ----- Message from Samuel Foy MD sent at 07/03/2024 8:39 AM EDT ----- Mild elevation in WBC and neutrophils which could be a sign of infection or inflammation. Awaiting stool studies. Other labs normal. Continue treatment as discussed in office. Shira Noel LPN 07/03/2024 11:19 AM Signed Phoned patient and reviewed results and recommendations with him. Patient voiced understanding. Shira Noel LPN Allergies As of Date: 07/03/2024 (No Known Allergies) Date Reviewed: 07/02/2024 Reviewed by: Maury Teixeira LPN - Fully Assessed Reason for Visit: Results [95] Prescriptions as of 07/03/2024 - azithromycin (ZITHROMAX) 500 mg tablet Take 1 tablet by mouth once daily for 3 days. - benzonatate (TESSALON PERLE) 100 mg capsule Take 1 capsule by mouth three times a day as needed. - atorvastatin (LIPITOR) 20 mg tablet Take 1 tablet by mouth once daily. For cholesterol - allopurinol (ZYLOPRIM) 100 mg tablet Take 2 tablets by mouth once daily. For gout. - benzonatate (TESSALON PERLES) 100 mg capsule Take 1 capsule by mouth three times a day as needed for cough. - amLODIPine (NORVASC) 5 mg tablet Take 1 tablet by mouth once daily. - amLODIPine (NORVASC) 2.5 mg tablet Take one tablet daily along with 5 mg tablet - lisinopril (ZESTRIL) 40 mg tablet Take 1 tablet by mouth once daily. - pantoprazole DR (PROTONIX) 40 mg tablet Take 1 tablet by mouth two times a day. Take on empty stomach, 1/2 hr before meal. - metoprolol succinate ER (TOPROL XL) 100 mg Take 1 tablet by mouth once daily. - acetaminophen (TYLENOL) 325 mg tablet Take 1 tablet by mouth every 4 hours as needed for pain. - aspirin 81 mg chewable tablet Take 1 tablet by mouth once daily. - colchicine 0.6 mg tablet Take 2 tabs by mouth, followed by 1 tab one hour later for gout flare. May repeat in 1 week. - naproxen (NAPROSYN) 500 mg tablet Take 1 tablet by mouth twice daily as needed (gout flare). Take with food. - meclizine (ANTIVERT) 25 mg tab Take 1 tablet by mouth twice daily as needed. TAKE 1 TABLET BY MOUTH NEEDED. USES FOR TRAVELING ONLY. Problem List As Of Date 07/03/2024 Noted Resolved Hypertension [I10] 11/12/2010 Hyperlipidemia [E78.5] 11/12/2010 GERD (gastroesophageal reflux disease) [K21.9] 11/12/2010 Acute gastritis without mention of hemorrhage [*01/30/2011 Esophagitis, unspecified [K20.90] 01/30/2011 Vertigo [R42] 2011 Coronary artery disease [I25.10] 07/25/2011 Trigger ring finger of right hand [M65.341] 10/31/2011 Diverticulosis of colon (without mention of hem*10/25/2012 Gastric ulcer, unspecified as acute or chronic,*10/25/2012 Multani's esophagus [K22.70] 10/25/2012 Pain in joint, shoulder region [M25.519] 11/05/2013 Trigger middle finger of left hand [M65.332] 12/16/2013 AAA (abdominal aortic aneurysm) ([facility]) [I71.40] 06/23/2014 Erectile dysfunction [N52.9] Overweight (BMI 25.0-29.9) [E66.3] Impaired fasting glucose [R73.01] CAD (coronary artery disease) [I25.10] 2002 AAA (abdominal aortic aneurysm) without rupture*09/05/2023 Acute post-operative pain [G89.18] 09/05/2023 Other arterial embolism and thrombosis of abdom*01/09/2024 Encounter Status:Closed by SHIRA NOEL on 07/03/24 Normal [facility] C diff Tox gens Stl Ql GSISELL+p robeon 07-02-2024 C. difficile toxin genes GISSELL+probe Ql (Stl) Negative Normal Negative for C. difficile toxin by PCR [facility] Comment on above: Order Comment: Speci men Type: STOOL SPECIMENOrdering Facility: [facility] Address: [address] [place] [address] Performed By: #### C VFLRS #### [facility] CLIA [id number] [address] [place] [address] [place] CBC W Auto Differential pane l (Bld)on 07-02-2024 Basophils (Bld) [#/Vol] 0.11 10*3/uL High <0.11 [facility] Comment on above: Order Comment: Speci men Type: BLOOD SPECIMENOrdering Facility: [facility] Address: [address] [place] [address] Performed By: #### C VFLRS #### [facility] CLIA [id number] [address] [place] [address] [place] Basophils/100 WBC (Bld) 1.0 % Normal [facility] Comment on above: Order Comment: Speci men Type: BLOOD SPECIMENOrdering Facility: [facility] Address: [address] [place] [address] Performed By: #### C VFLRS #### [facility] CLIA [id number] [address] [place] [address] [place] Differential cell count method Nom (Bld) Auto Normal [facility] Comment on above: Order Comment: Speci men Type: BLOOD SPECIMENOrdering Facility: [facility] Address: [address] [place] [address] Performed By: #### C VFLRS #### [facility] CLIA [id number] [address] [place] [address] [place] Eosinophils (Bld) [#/Vol] 0.24 10*3/uL Normal <0.46 [facility] Comment on above: Order Comment: Speci men Type: BLOOD SPECIMENOrdering Facility: [facility] Address: [address] [place] [address] Performed By: #### C VFLRS #### [facility] CLIA [id number] [address] [place] [address] [place] Eosinophils/100 WBC (Bld) 2.1 % Normal [facility] Comment on above: Order Comment: Speci men Type: BLOOD SPECIMENOrdering Facility: [facility] Address: [address] [place] [address] Performed By: #### C VFLRS #### [facility] CLIA [id number] [address] [place] [address] [place] Erythrocyte distribution width (RBC) [Ratio] 15.9 % High 11.5-15.0 [facility] Comment on above: Order Comment: Speci men Type: BLOOD SPECIMENOrdering Facility: [facility] Address: [address] [place] [address] Performed By: #### C VFLRS #### [facility] CLIA [id number] [address] [place] [address] [place] Hematocrit (Bld) [Volume fraction] 41.3 % Normal 39.0-51.0 [facility] Comment on above: Order Comment: Speci men Type: BLOOD SPECIMENOrdering Facility: [facility] Address: [address] [place] [address] Performed By: #### C VFLRS #### [facility] CLIA [id number] [address] [place] [address] [place] Hemoglobin (Bld) [Mass/Vol] 13.3 g/dL Normal 13.0-17.0 [facility] Comment on above: Order Comment: Speci men Type: BLOOD SPECIMENOrdering Facility: [facility] Address: [address] [place] [address] Performed By: #### C VFLRS #### [facility] CLIA [id number] [address] [place] [address] [place] Immature granulocytes (Bld) [#/Vol] 0.06 10*3/uL Normal <0.10 [facility] Comment on above: Order Comment: Speci men Type: BLOOD SPECIMENOrdering Facility: [facility] Address: [address] [place] [address] Performed By: #### C VFLRS #### [facility] CLIA [id number] [address] [place] [address] [place] Immature granulocytes/100 WBC (Bld) 0.5 % Normal [facility] Comment on above: Order Comment: Speci men Type: BLOOD SPECIMENOrdering Facility: [facility] Address: [address] [place] [address] Performed By: #### C VFLRS #### [facility] CLIA [id number] [address] [place] [address] [place] Lymphocytes (Bld) [#/Vol] 1.95 10*3/uL Normal 1.00-4.00 [facility] Comment on above: Order Comment: Speci men Type: BLOOD SPECIMENOrdering Facility: [facility] Address: [address] [place] [address] Performed By: #### C VFLRS #### [facility] CLIA [id number] [address] [place] [address] [place] Lymphocytes/100 WBC (Bld) 17.0 % Normal [facility] Comment on above: Order Comment: Speci men Type: BLOOD SPECIMENOrdering Facility: [facility] Address: [address] [place] [address] Performed By: #### C VFLRS #### [facility] CLIA [id number] [address] [place] [address] [place] MCH (RBC) [Entitic mass] 28.6 pg Normal 26.0-34.0 [facility] Comment on above: Order Comment: Speci men Type: BLOOD SPECIMENOrdering Facility: [facility] Address: [address] [place] [address] Performed By: #### C VFLRS #### [facility] CLIA [id number] [address] [place] [address] [place] MCHC (RBC) [Mass/Vol] 32.2 g/dL Normal 30.5-36.0 [facility] Comment on above: Order Comment: Speci men Type: BLOOD SPECIMENOrdering Facility: [facility] Address: [address] [place] [address] Performed By: #### C VFLRS #### [facility] CLIA [id number] [address] [place] [address] [place] MCV (RBC) [Entitic vol] 88.8 fL Normal 80.0-100.0 [facility] Comment on above: Order Comment: Speci men Type: BLOOD SPECIMENOrdering Facility: [facility] Address: [address] [place] [address] Performed By: #### C VFLRS #### [facility] CLIA [id number] [address] [place] [address] [place] Monocytes (Bld) [#/Vol] 0.75 10*3/uL Normal <0.87 [facility] Comment on above: Order Comment: Speci men Type: BLOOD SPECIMENOrdering Facility: [facility] Address: [address] [place] [address] Performed By: #### C VFLRS #### [facility] CLIA [id number] [address] [place] [address] [place] Monocytes/100 WBC (Bld) 6.5 % Normal [facility] Comment on above: Order Comment: Speci men Type: BLOOD SPECIMENOrdering Facility: [facility] Address: [address] [place] [address] Performed By: #### C VFLRS #### [facility] CLIA [id number] [address] [place] [address] [place] Neutrophils (Bld) [#/Vol] 8.35 10*3/uL High 1.45-7.50 [facility] Comment on above: Order Comment: Speci men Type: BLOOD SPECIMENOrdering Facility: [facility] Address: [address] [place] [address] Performed By: #### C VFLRS #### [facility] CLIA [id number] [address] [place] [address] [place] Neutrophils/100 WBC (Bld) 72.9 % Normal [facility] Comment on above: Order Comment: Speci men Type: BLOOD SPECIMENOrdering Facility: [facility] Address: [address] [place] [address] Performed By: #### C VFLRS #### [facility] CLIA [id number] [address] [place] [address] [place] Nucleated RBC (Bld) [#/Vol] 10*3/uL Normal <0.01 [facility] Comment on above: Order Comment: Speci men Type: BLOOD SPECIMENOrdering Facility: [facility] Address: [address] [place] [address] Performed By: #### C VFLRS #### [facility] CLIA [id number] [address] [place] [address] [place] Nucleated RBC/100 WBC (Bld) [Ratio] 0.0 /100 WBC Normal [facility] Comment on above: Order Comment: Speci men Type: BLOOD SPECIMENOrdering Facility: [facility] Address: [address] [place] [address] Performed By: #### C VFLRS #### [facility] CLIA [id number] [address] [place] [address] [place] Platelet mean volume (Bld) [Entitic vol] 8.8 fL Low 9.0-12.7 [facility] Comment on above: Order Comment: Speci men Type: BLOOD SPECIMENOrdering Facility: [facility] Address: [address] [place] [address] Performed By: #### C VFLRS #### [facility] CLIA [id number] [address] [place] [address] [place] Platelets (Bld) [#/Vol] 378 10*3/uL Normal 150-400 [facility] Comment on above: Order Comment: Speci men Type: BLOOD SPECIMENOrdering Facility: [facility] Address: [address] [place] [address] Performed By: #### C VFLRS #### [facility] CLIA [id number] [address] [place] [address] [place] RBC (Bld) [#/Vol] 4.65 10*6/uL Normal 4.20-6.00 [facility] Comment on above: Order Comment: Speci men Type: BLOOD SPECIMENOrdering Facility: [facility] Address: [address] [place] [address] Performed By: #### C VFLRS #### [facility] CLIA [id number] [address] [place] [address] [place] WBC (Bld) [#/Vol] 11.46 10*3/uL High 3.70-11.00 [facility] Comment on above: Order Comment: Speci men Type: BLOOD SPECIMENOrdering Facility: [facility] Address: [address] [place] [address] Performed By: #### C VFLRS #### [facility] CLIA [id number] [address] [place] [address] [place] CNOVon 07-02-2024 CNOV Office Visit (FAMPWS ) KRIS COX ([id number]) 1950 M Date Time Provider Department 07/02/24 8:20 AM SAMUEL FOY During your visit today, we recorded the following information about you: Temperature Pulse Respiration Blood pressure 98.7 degrees 59/minute 12/minute 130/62 Weight Height 68.5 kg 1.702 m Samuel Foy MD 07/02/2024 9:27 AM Signed Chief Complaint Patient presents with: Follow Up: diarrhea since 06/18/24 seen in [facility], [place] 06[place]15/24 HPI Kris Cox is a 74 year old male who presents here today for Above Complaints.. Patient evaluated in on 06/23 for complaint of cough, diarrhea, and congestin with following HPI: 74-year-old male presents for cough, diarrhea, congestion. Patient states he has had cough and chest congestion for the past 4 days. He is coughing up green phlegm. He denies any chest pain or shortness of breath. He does not really have nasal congestion. No sore throat. No fevers. He states he has had diarrhea for the past few days as well. No abdominal pain. No blood in the stool. No vomiting. Still able to eat and drink. He states he recently traveled to [place]. May have been in contact with sick contacts. Nobody else at home has similar symptoms. Patient did have COVID about 2 months ago and states that this feels similar. No other complaint. COVID/flu/RSV and CXR negative. Started on tessalon and advised BRAT diet and pushing PO fluids. Today, he states that cough and congestion has mostly cleared up and just has mild cough now. Watery diarrhea has also improved in the last 2-3 days, but is still loose. Getting about 1 episode per day of muddy water looking stools. Associated with increased gas without bloating or abdominal pain. Treated with imodium without improvement. Denies fever/chills, nausea, vomiting, hematochezia, melena. No sick contacts with similar symptoms. Tolerating PO diet. No abx in the last 6 months. Did visit a long-term 1-2 days before symptoms started. No recent hospitalizations. Did not eat any exotic or raw foods overseas. Notes that when diarrhea started he had foul smelling stools with mucous more than 5 times per day. Past medical history, appointments, medications, allergies reviewed. Previous Medical History PAST MEDICAL HISTORY Diagnosis Date AAA (abdominal aortic aneurysm) (HCC) Dr. Araujo- Multani's esophagus 2009 Needs repeat EGD 04/2023. CAD (coronary artery disease) 2002 stress test abnormal Diverticulosis Duodenal stricture Dr. Moran Duodenitis without mention of hemorrhage Erectile dysfunction Esophagitis, unspecified Gout History of colonoscopy HTN (hypertension) Hyperlipidemia Impaired fasting glucose Overweight (BMI 25.0-29.9) Vertigo Previous Surgical History PAST SURGICAL HISTORY Procedure Laterality Date CARDIAC CATH 04/30/2007 COLONOSCOPY FLX DX W/COLLJ SPEC WHEN PFRMD 10/25/2012 few diverticula - 10 year follow up COLONOSCOPY FLX DX W/COLLJ SPEC WHEN PFRMD 07/28/2020 Colonoscopy EGD 12/03/2009 dx barretts esophagus EGD 06/10/2009 h-pylori negative EGD BALLOON DILATION ESOPHAGUS <30 MM DIAM 01/30/2011 EGD TRANSORAL BIOPSY SINGLE/MULTIPLE 10/25/2012 duodenitis, gastric ulcer, gastritis, small hiatal hernia, multani's esophagitis EGD W/O [facility] SPEC VARICIES INJ 12/16/2021 ESOPHAGOGASTRODUODENOSCOPY TRANSORAL DIAGNOSTIC 07/28/2020 EGD EXPLORATORY SHOULDER SURGERY 1965 repair dislcoation. left FRACTURE SURGERY Left 1961 Fractured collar bone with surgery INCISE FINGER TENDON SHEATH Right 07/19/2023 Right index trigger finger release PAST SURGICAL HISTORY OF right and left meniscus surgeries of knee PAST SURGICAL HISTORY OF 2008 right middle finger trigger repair PAST SURGICAL HISTORY OF 08/02/2012 right ring trigger finger release PAST SURGICAL HISTORY OF 01/09/2014 Left 3rd finger trigger release TONSILLECTOMY HX Family History FAMILY HISTORY Problem Relation Age of Onset Cancer Mother liver Heart Father Lipids Father other (depression) Sister Multiple Sclerosis Brother Anesthesia Problems No Family History Patient Allergies ALLERGIES No Known Allergies Current Medications Current Outpatient Medications on File Prior to Visit Medication Sig benzonatate (TESSALON PERLE) 100 mg capsule Take 1 capsule by mouth three times a day as needed. atorvastatin (LIPITOR) 20 mg tablet Take 1 tablet by mouth once daily. For cholesterol allopurinol (ZYLOPRIM) 100 mg tablet Take 2 tablets by mouth once daily. For gout. benzonatate (TESSALON PERLES) 100 mg capsule Take 1 capsule by mouth three times a day as needed for cough. amLODIPine (NORVASC) 5 mg tablet Take 1 tablet by mouth once daily. amLODIPine (NORVASC) 2.5 mg tablet Take one tablet daily along wit (more content not included)... Normal [facility] Comprehensive metabolic 2000 panelon 07-02-2024 Albumin [Mass/Vol] 3.9 g/dL Normal 3.9-4.9 [facility] Comment on above: Order Comment: Speci men Type: BLOOD SPECIMENOrdering Facility: [facility] Address: [address] [place] [address] Performed By: #### 2 4323-8 ####[facility] LABIA [id number] [place] [address] [place] ALP [Catalytic activity/Vol] 101 U/L Normal 38-113 [facility] Comment on above: Order Comment: Speci men Type: BLOOD SPECIMENOrdering Facility: [facility] Address: [address] [place] [address] Performed By: #### 2 4323-8 ####[facility] LABIA [id number] [place] [address] [place] ALT [Catalytic activity/Vol] 16 U/L Normal 10-54 [facility] Comment on above: Order Comment: Speci men Type: BLOOD SPECIMENOrdering Facility: [facility] Address: [address] [place] [address] Performed By: #### 2 4323-8 ####[facility] LABIA [id number] [place] [address] [place] Anion gap [Moles/Vol] 14 mmol/L Normal 8-15 [facility] Comment on above: Order Comment: Speci men Type: BLOOD SPECIMENOrdering Facility: [facility] Address: [address] [place] [address] Performed By: #### 2 4323-8 ####[facility] LABCLIA [id number] [place] [address] [place] AST [Catalytic activity/Vol] 22 U/L Normal 14-40 [facility] Comment on above: Order Comment: Speci men Type: BLOOD SPECIMENOrdering Facility: [facility] Address: [address] [place] [address] Performed By: #### 2 4323-8 ####[facility] LABCLIA [id number] [place] [address] [place] Bilirubin [Mass/Vol] 0.3 mg/dL Normal 0.2-1.3 [facility] Comment on above: Order Comment: Speci men Type: BLOOD SPECIMENOrdering Facility: [facility] Address: [address] [place] [address] Performed By: #### 2 4323-8 ####[facility] LABCLIA [id number] [place] [address] [place] Calcium [Mass/Vol] 8.8 mg/dL Normal 8.5-10.2 [facility] Comment on above: Order Comment: Speci men Type: BLOOD SPECIMENOrdering Facility: [facility] Address: [address] [place] [address] Performed By: #### 2 4323-8 ####[facility] LABCLIA [id number] [place] [address] [place] Chloride [Moles/Vol] 103 mmol/L Normal 98-107 [facility] Comment on above: Order Comment: Speci men Type: BLOOD SPECIMENOrdering Facility: [facility] Address: [address] [place] [address] Performed By: #### 2 4323-8 ####[facility] LABCLIA [id number] [place] [address] [place] CO2 [Moles/Vol] 23 mmol/L Normal 22-30 [facility] Comment on above: Order Comment: Speci men Type: BLOOD SPECIMENOrdering Facility: [facility] Address: [address] [place] [address] Performed By: #### 2 4323-8 ####[facility] LABCLIA [id number] [place] [address] [place] Creatinine [Mass/Vol] 0.98 mg/dL Normal 0.73-1.22 [facility] Comment on above: Order Comment: Speci men Type: BLOOD SPECIMENOrdering Facility: [facility] Address: [address] [place] [address] Performed By: #### 2 4323-8 ####[facility] LABIA [id number] [place] [address] [place] Creatinine and Glomerular filtration rate.predicted panel (S/P/Bld) 80 mL/min/1.73m??? Normal >=60 [facility] Comment on above: Order Comment: Speci men Type: BLOOD SPECIMENOrdering Facility: [facility] Address: [address] [place] [address] Result Comment: Jonelle mated Glomerular Filtration Rate (eGFR) is calculated using the 2020 CKD-EPI creatinine equation. This equation utilizes serum creatinine, sex, and age as parameters. The creatinine assay has traceable calibration to isotope dilution-mass spectrometry. Refer to KDIGO guidelines for clinical interpretation. In patients with unstable renal function, e.g. those with acute kidney injury, the eGFR may not accurately reflect actual GFR. Performed By: #### 2 4323-8 ####[facility] LABCLIA [id number] [place] [id number] [place] Glucose [Mass/Vol] 87 mg/dL Normal 74-99 [facility] Comment on above: Order Comment: Speci men Type: BLOOD SPECIMENOrdering Facility: [facility] Address: [address] [place] [address] Result Comment: The [place] Diabetes Association (ADA) provides guidance for cutoff values for fasting glucose and random glucose. The ADA defines fasting as no caloric intake for at least 8 hours. Fasting plasma glucose results between 100 to 125 mg/dL indicate increased risk for diabetes (prediabetes). Fasting plasma glucose results greater than or equal to 126 mg/dL meet the criteria for diagnosis of diabetes. In the absence of unequivocal hyperglycemia, results should be confirmed by repeat testing. In a patient with classic symptoms of hyperglycemia or hyperglycemic crisis, random plasma glucose results greater than or equal to 200 mg/dL meet the criteria for diagnosis of diabetes. Reference: Standards of Medical Care in Diabetes 2016, [place] Diabetes Association. Diabetes Care. 2016.39(Suppl 1). Performed By: #### 2 4323-8 ####[facility] LABCLIA [id number] [place] [address] [place] Potassium [Moles/Vol] 4.0 mmol/L Normal 3.7-5.1 [facility] Comment on above: Order Comment: Speci men Type: BLOOD SPECIMENOrdering Facility: [facility] Address: [address] [place] [address] Performed By: #### 2 4323-8 ####[facility] LABIA [id number] [place] [address] [place] Protein [Mass/Vol] 6.7 g/dL Normal 6.3-8.0 [facility] Comment on above: Order Comment: Dixoni angel Type: BLOOD SPECIMENOrdering Facility: [facility] Address: [address] [place] [address] Performed By: #### 2 4323-8 ####[facility] LABCLIA [id number] [place] [address] [place] Sodium [Moles/Vol] 140 mmol/L Normal 136-144 [facility] Comment on above: Order Comment: Speci men Type: BLOOD SPECIMENOrdering Facility: [facility] Address: [address] [place] [address] Performed By: #### 2 4323-8 ####[facility] LABIA [id number] [place] [address] [place] Urea nitrogen [Mass/Vol] 13 mg/dL Normal 9-24 [facility] Comment on above: Order Comment: Speci men Type: BLOOD SPECIMENOrdering Facility: [facility] Address: [address] [place] [address] Performed By: #### 2 4323-8 ####[facility] LABCLIA [id number] [place] [address] [place] FECAL LACTOFERRIN/LEUKOCYTES on 07-02-2024 Lactoferrin IA Ql (Stl) Positive for lactoferrin, which may indicate presence of fecal white blood cells Abnormal Negative [facility] Comment on above: Order Comment: Speci men Type: STOOL SPECIMENOrdering Facility: [facility] Address: [address] [place] [address] Performed By: #### 5 4067-4, FECWBC ####[facility] LABCLIA [id number] [place] [address] [place] Gastrointestinal pathogens i dentified GISSELL+probe Nom (Stl)on 07-02-2024 Campylobacter sp DNA GISSELL+probe Nom (Unsp spec) Detected Abnormal Not Detected [facility] Comment on above: Order Comment: Speci men Type: STOOL SPECIMENOrdering Facility: [facility] Address: [address] [place] [address] Performed By: #### 7 9390-1 ####[facility] LABCLIA [id number] [place] [address] [place] Salmonella sp DNA GISSELL+probe Ql (Unsp spec) Not detected Normal Not Detected [facility] Comment on above: Order Comment: Speci men Type: STOOL SPECIMENOrdering Facility: [facility] Address: [address] [place] [address] Performed By: #### 7 9390-1 ####[facility] LABCLIA [id number] [place] [address] [place] Shiga toxin stx gene GISSELL+probe Nom (Unsp spec) Not detected Normal Not Detected [facility] Comment on above: Order Comment: Speci men Type: STOOL SPECIMENOrdering Facility: [facility] Address: [address] [place] [address] Performed By: #### 7 9390-1 ####[facility] LABCLIA [id number] [address] OF [place] Shigella sp DNA GISSELL+probe Ql (Unsp spec) Not detected Normal Not Detected [facility] Comment on above: Order Comment: Speci men Type: STOOL SPECIMENOrdering Facility: [facility] Address: [address] [place] [address] Performed By: #### 7 9390-1 ####[facility] LABCLIA [id number] [place] [address] [place] O+P Spec Microon 07-02-2024 Ova and parasites identified LM Nom (Unsp spec) OVA AND PARASITE EXAM: No Parasites Seen Normal [facility] Comment on above: Performed By: #### 6 73-4 ####[facility] LABCLIA [id number] [address] OF [facility] CNOVon 06-23-2024 CNOV Office Visit (WSTR ) KRIS COX ([id number]) 1950 M Date Time Provider Department 06/23/24 7:30 AM GANESH PADILLA [facility] During your visit today, we recorded the following information about you: Temperature Pulse Respiration Blood pressure 96.9 degrees 68/minute 16/minute 122/60 Weight 68.4 kg Ganesh Padilla PA 06/23/2024 8:32 AM Signed This note was created using Zipzoomriter. Subjective Kris Cox is a 74 year old male. HPI 74-year-old male presents for cough, diarrhea, congestion. Patient states he has had cough and chest congestion for the past 4 days. He is coughing up green phlegm. He denies any chest pain or shortness of breath. He does not really have nasal congestion. No sore throat. No fevers. He states he has had diarrhea for the past few days as well. No abdominal pain. No blood in the stool. No vomiting. Still able to eat and drink. He states he recently traveled to [place]. May have been in contact with sick contacts. Nobody else at home has similar symptoms. Patient did have COVID about 2 months ago and states that this feels similar. No other complaint. PAST MEDICAL HISTORY Diagnosis Date AAA (abdominal aortic aneurysm) ([facility]) Dr. Araujo- Multani's esophagus 2009 Needs repeat EGD 04/2023. CAD (coronary artery disease) 2002 stress test abnormal Diverticulosis Duodenal stricture Dr. Moran Duodenitis without mention of hemorrhage Erectile dysfunction Esophagitis, unspecified Gout History of colonoscopy HTN (hypertension) Hyperlipidemia Impaired fasting glucose Overweight (BMI 25.0-29.9) Vertigo PAST SURGICAL HISTORY Procedure Laterality Date CARDIAC CATH 04/30/2007 COLONOSCOPY FLX DX W/COLLJ SPEC WHEN PFRMD 10/25/2012 few diverticula - 10 year follow up COLONOSCOPY FLX DX W/COLLJ SPEC WHEN PFRMD 07/28/2020 Colonoscopy EGD 12/03/2009 dx barretts esophagus EGD 06/10/2009 h-pylori negative EGD BALLOON DILATION ESOPHAGUS <30 MM DIAM 01/30/2011 EGD TRANSORAL BIOPSY SINGLE/MULTIPLE 10/25/2012 duodenitis, gastric ulcer, gastritis, small hiatal hernia, multani's esophag[facility] 12/16/2021 ESOPHAGOGASTRODUODENOSCOPY TRANSORAL DIAGNOSTIC 07/28/2020 EGD EXPLORATORY SHOULDER SURGERY 1965 repair dislcoation. left FRACTURE SURGERY Left 1961 Fractured collar bone with surgery INCISE FINGER TENDON SHEATH Right 07/19/2023 Right index trigger finger release PAST SURGICAL HISTORY OF right and left meniscus surgeries of knee PAST SURGICAL HISTORY OF 2008 right middle finger trigger repair PAST SURGICAL HISTORY OF 08/02/2012 right ring trigger finger release PAST SURGICAL HISTORY OF 01/09/2014 Left 3rd finger trigger release TONSILLECTOMY HX ALLERGIES Patient has no known allergies. MEDICATIONS atorvastatin (LIPITOR) 20 mg tablet Take 1 tablet by mouth once daily. For cholesterol allopurinol (ZYLOPRIM) 100 mg tablet Take 2 tablets by mouth once daily. For gout. benzonatate (TESSALON PERLES) 100 mg capsule Take 1 capsule by mouth three times a day as needed for cough. amLODIPine (NORVASC) 5 mg tablet Take 1 tablet by mouth once daily. amLODIPine (NORVASC) 2.5 mg tablet Take one tablet daily along with 5 mg tablet lisinopril (ZESTRIL) 40 mg tablet Take 1 tablet by mouth once daily. pantoprazole DR (PROTONIX) 40 mg tablet Take 1 tablet by mouth two times a day. Take on empty stomach, 1/2 hr before meal. metoprolol succinate ER (TOPROL XL) 100 mg Take 1 tablet by mouth once daily. acetaminophen (TYLENOL) 325 mg tablet Take 1 tablet by mouth every 4 hours as needed for pain. colchicine 0.6 mg tablet Take 2 tabs by mouth, followed by 1 tab one hour later for gout flare. May repeat in 1 week. naproxen (NAPROSYN) 500 mg tablet Take 1 tablet by mouth twice daily as needed (gout flare). Take with food. meclizine (ANTIVERT) 25 mg tab Take 1 tablet by mouth twice daily as needed. TAKE 1 TABLET BY MOUTH NEEDED. USES FOR TRAVELING ONLY. aspirin 81 mg chewable tablet Take 1 tablet by mouth once daily. FAMILY HISTORY Problem Relation Age of Onset Cancer Mother liver Heart Father Lipids Father other (depression) Sister Multiple Sclerosis Brother Anesthesia Problems No Family History Social History Tobacco Use Smoking status: Former Current packs/day: 0.00 Average packs/day: 1 pack/day for 15.0 years (15.0 ttl pk-yrs) Types: Cigarettes Start date: 06/08/1987 Quit date: 06/08/2002 Years since quittin.0 Smokeless tobacco: Never Vaping Use Vaping status: Never Used Substance Use Topics Alcohol use: Yes Comment: very seldom, not even 1 drink per month Drug use: No Review of Systems Constitutional: Negative for chills and fever. HENT: Negative for congestion and sore throat. Respiratory: Positive for cough. Negative for shortness of breath. Gastroint (more content not included)... Normal [facility] COVID AND INFLUENZA A/B AND RSV PCR, ROUTINEon 06-23-2024 SARS-CoV-2 (COVID-19) RNA GISSELL+probe Ql (Unsp spec) SARS-COV-2 (AGENT OF COVID-19) RNA: Not detected INFLUENZA A RNA: Not detected INFLUENZA B RNA: Not detected RESPIRATORY SYNCYTIAL VIRUS (RSV) RNA: Not detected Normal [facility] Comment on above: Performed By: #### C VFLRS #### [facility] LAB CLIA [id number] [address] [place] [address] OF [facility] XR CHEST 2V FRONTAL/LATon XR CHEST 2V FRONTAL/LAT * * *Final Report* * * DATE OF EXAM: Jun 23 2024 8:15AM WOX [id number] - XR CHEST 2V FRONTAL/LAT / PROCEDURE REASON: Acute cough * * * * Physician Interpretation * * * * EXAMINATION: CHEST RADIOGRAPH (2 VIEW FRONTAL and LATERAL) CLINICAL HISTORY: Acute cough MQ: XC2_6 EXAM DATE/TIME: 06/23/2024 8:15 AM COMPARISON: Chest x-ray on 05/07/2024 RESULT: Lines, tubes, and devices: None. Lungs and pleura: The bilateral lungs are somewhat overexpanded. There are linear and reticular opacities in the left lung, unchanged. No new consolidations. No masses. No pleural effusions or pneumothorax. Cardiomediastinal silhouette: Stable cardiomediastinal silhouette. Bones and soft tissues: There are degenerative changes in the spine. IMPRESSION: Overall findings unchanged. Sinter Feeder: HAILEY Transcribe Date/Time: Jun 23 2024 8:25A Dictated by : THEE CHRISTOPHER MD This examination was interpreted and the report reviewed and electronically signed by: THEE CHRISTOPHER MD on Jun 23 2024 8:26AM EST [id number] Normal [facility] XR Chest PA and Lateralon IMPRESSION: Overall findings unchanged. Sinter Feeder: HAILEY Transcribe Date/Time: Jun 23 2024 8:25A Dictated by : THEE CHRISTOPHER MD This examination was interpreted and the report reviewed and electronically signed by: THEE CHRISTOPHER MD on Jun 23 2024 8:26AM [facility] DIVISION OF RADIOLOGY * * *Final Report* * * DATE OF EXAM: Jun 23 2024 8:15AM WOX [id number] - XR CHEST 2V FRONTAL/LAT / PROCEDURE REASON: Acute cough * * * * Physician Interpretation * * * * EXAMINATION: CHEST RADIOGRAPH (2 VIEW FRONTAL & LATERAL) CLINICAL HISTORY: Acute cough MQ: XC2_6 EXAM DATE/TIME: 06/23/2024 8:15 AM COMPARISON: Chest x-ray on 05/07/2024 RESULT: Lines, tubes, and devices: None. Lungs and pleura: The bilateral lungs are somewhat overexpanded. There are linear and reticular opacities in the left lung, unchanged. No new consolidations. No masses. No pleural effusions or pneumothorax. Cardiomediastinal silhouette: Stable cardiomediastinal silhouette. Bones and soft tissues: There are degenerative changes in the spine. DIVISION OF RADIOLOGY Provider, [facility] - 06/23/2024 * * *Final Report* * * DATE OF EXAM: Jun 23 2024 8:15AM WOX [id number] - XR CHEST 2V FRONTAL/LAT / PROCEDURE REASON: Acute cough * * * * Physician Interpretation * * * * EXAMINATION: CHEST RADIOGRAPH (2 VIEW FRONTAL & LATERAL) CLINICAL HISTORY: Acute cough MQ: XC2_6 EXAM DATE/TIME: 06/23/2024 8:15 AM COMPARISON: Chest x-ray on 05/07/2024 RESULT: Lines, tubes, and devices: None. Lungs and pleura: The bilateral lungs are somewhat overexpanded. There are linear and reticular opacities in the left lung, unchanged. No new consolidations. No masses. No pleural effusions or pneumothorax. Cardiomediastinal silhouette: Stable cardiomediastinal silhouette. Bones and soft tissues: There are degenerative changes in the spine. IMPRESSION IMPRESSION: Overall findings unchanged. Sinter Feeder: HAILEY Transcribe Date/Time: Jun 23 2024 8:25A Dictated by : THEE CHRISTOPHER MD This examination was interpreted and the report reviewed and electronically signed by: THEE CHRISTOPHER MD on Jun 23 2024 8:26AM [facility] Radiology Study observation (narrative) [facility] XR Chest PA and LateralOrder ed By: [facility] Provider on 06-23-[address] 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 Is past treatment window for antiviral treatment If does not have fever does not need to quarantine. Continue the antibiotic prescribed during visit. F/u for continued or worsening symptoms. -If you experience chest pain/shortness of breath go to Capri Avendaño LPN 05/08/2024 8:30 AM Signed Pt notified of results and states he understands. Capri Stanford LPN Allergies As of Date: 05/08/2024 (No Known Allergies) Date Reviewed: 05/07/2024 Reviewed by: Nicky Mccall LPN - Fully Assessed Reason for Visit: Results [95] Prescriptions as of 05/08/2024 - doxycycline (VIBRA-TABS) 100 mg tablet Take 1 tablet by mouth two times a day for 7 days. - benzonatate (TESSALON PERLES) 100 mg capsule Take 1 capsule by mouth three times a day as needed for cough. - amLODIPine (NORVASC) 5 mg tablet Take 1 tablet by mouth once daily. - amLODIPine (NORVASC) 2.5 mg tablet Take one tablet daily along with 5 mg tablet - lisinopril (ZESTRIL) 40 mg tablet Take 1 tablet by mouth once daily. - pantoprazole DR (PROTONIX) 40 mg tablet Take 1 tablet by mouth two times a day. Take on empty stomach, 1/2 hr before meal. - atorvastatin (LIPITOR) 20 mg tablet Take 1 tablet by mouth once daily. For cholesterol - metoprolol succinate ER (TOPROL XL) 100 mg Take 1 tablet by mouth once daily. - allopurinol (ZYLOPRIM) 100 mg tablet Take 2 tablets by mouth once daily. For gout. - acetaminophen (TYLENOL) 325 mg tablet Take 1 tablet by mouth every 4 hours as needed for pain. - aspirin 81 mg chewable tablet Take 1 tablet by mouth once daily. - colchicine 0.6 mg tablet Take 2 tabs by mouth, followed by 1 tab one hour later for gout flare. May repeat in 1 week. - naproxen (NAPROSYN) 500 mg tablet Take 1 tablet by mouth twice daily as needed (gout flare). Take with food. - meclizine (ANTIVERT) 25 mg tab Take 1 tablet by mouth twice daily as needed. TAKE 1 TABLET BY MOUTH NEEDED. USES FOR TRAVELING ONLY. Problem List As Of Date 05/08/2024 Noted Resolved Hypertension [I10] 11/12/2010 Hyperlipidemia [E78.5] 11/12/2010 GERD (gastroesophageal reflux disease) [K21.9] 11/12/2010 Acute gastritis without mention of hemorrhage [*01/30/2011 Esophagitis, unspecified [K20.90] 01/30/2011 Vertigo [R42] 2011 Coronary artery disease [I25.10] 07/25/2011 Trigger ring finger of right hand [M65.341] 10/31/2011 Diverticulosis of colon (without mention of hem*10/25/2012 Gastric ulcer, unspecified as acute or chronic,*10/25/2012 Multani's esophagus [K22.70] 10/25/2012 Pain in joint, shoulder region [M25.519] 11/05/2013 Trigger middle finger of left hand [M65.332] 12/16/2013 AAA (abdominal aortic aneurysm) (HCC) [I71.40] 06/23/2014 Erectile dysfunction [N52.9] Overweight (BMI 25.0-29.9) [E66.3] Impaired fasting glucose [R73.01] CAD (coronary artery disease) [I25.10] 2002 AAA (abdominal aortic aneurysm) without rupture*09/05/2023 Acute post-operative pain [G89.18] 09/05/2023 Other arterial embolism and thrombosis of abdom*01/09/2024 Encounter Status:Closed by CAPRI STANFORD on 05/08/24 Normal [facility] CNOVon 05-07-2024 CNOV Office Visit (UCWSTR ) KRIS COX ([id number]) 1950 M Date Time Provider Department 05/07/24 8:30 AM ANA HERRERA [facility] During your visit today, we recorded the following information about you: Temperature Pulse Respiration Blood pressure 98.6 degrees 77/minute 16/minute 132/78 Weight 71.3 kg Ana Herrera APRN.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 Subjective Kris Cox is a 73 year old male. 73 year old male with PMH of GERD, duodenal stricture, HTN, HLD, CAD, AAA repair on 09/05/23 presents for illness. ' Acute onset 5 days ago +sore throat +cough +productive +chest congestion +sinus pressure +body aches Denies N/V/D Denies fever or chills Denies fatigue Denies tobacco usage. Of note, was just on a cruise. Citing he traveled to [place] and [place] The history is provided by the patient. No chinese language professor was used. Cough This is a new problem. The current episode started more than 2 days ago. The problem occurs constantly. The problem has been gradually worsening. The cough is Productive of sputum. There has been no fever. Associated symptoms include ear congestion, headaches, rhinorrhea and sore throat. Pertinent negatives include no chest pain, no chills, no sweats, no weight loss, no ear pain, no myalgias, no shortness of breath, no wheezing and no eye redness. He has tried nothing for the symptoms. The treatment provided no relief. He is not a smoker. His past medical history does not include bronchitis, pneumonia, bronchiectasis, COPD, emphysema or asthma. PAST MEDICAL HISTORY Diagnosis Date AAA (abdominal aortic aneurysm) (HCC) Dr. Araujo- Multani's esophagus 2009 Needs repeat EGD 04/2023. CAD (coronary artery disease) 2002 stress test abnormal Diverticulosis Duodenal stricture Dr. Moran Duodenitis without mention of hemorrhage Erectile dysfunction Esophagitis, unspecified Gout History of colonoscopy HTN (hypertension) Hyperlipidemia Impaired fasting glucose Overweight (BMI 25.0-29.9) Vertigo PAST SURGICAL HISTORY Procedure Laterality Date CARDIAC CATH 04/30/2007 COLONOSCOPY FLX DX W/COLLJ SPEC WHEN PFRMD 10/25/2012 few diverticula - 10 year follow up COLONOSCOPY FLX DX W/COLLJ SPEC WHEN PFRMD 07/28/2020 Colonoscopy EGD 12/03/2009 dx barretts esophagus EGD 06/10/2009 h-pylori negative EGD BALLOON DILATION ESOPHAGUS <30 MM DIAM 01/30/2011 EGD TRANSORAL BIOPSY SINGLE/MULTIPLE 10/25/2012 duodenitis, gastric ulcer, gastritis, small hiatal hernia, multani's esophagitis EGD W/O BRSH SPEC VARICIES INJ 12/16/2021 ESOPHAGOGASTRODUODENOSCOPY TRANSORAL DIAGNOSTIC 07/28/2020 EGD EXPLORATORY SHOULDER SURGERY 1965 repair dislcoation. left FRACTURE SURGERY Left 1961 Fractured collar bone with surgery INCISE FINGER TENDON SHEATH Right 07/19/2023 Right index trigger finger release PAST SURGICAL HISTORY OF right and left meniscus surgeries of knee PAST SURGICAL HISTORY OF 2008 right middle finger trigger repair PAST SURGICAL HISTORY OF 08/02/2012 right ring trigger finger release PAST SURGICAL HISTORY OF 01/09/2014 Left 3rd finger trigger release TONSILLECTOMY HX ALLERGIES Patient has no known allergies. MEDICATIONS amLODIPine (NORVASC) 5 mg tablet Take 1 tablet by mouth once daily. amLODIPine (NORVASC) 2.5 mg tablet Take one tablet daily along with 5 mg tablet lisinopril (ZESTRIL) 40 mg tablet Take 1 tablet by mouth once daily. pantoprazole DR (PROTONIX) 40 mg tablet Take 1 tablet by mouth two times a day. Take on empty stomach, 1/2 hr before meal. atorvastatin (LIPITOR) 20 mg tablet Take 1 tablet by mouth once daily. For cholesterol metoprolol succinate ER (TOPROL XL) 100 mg Take 1 tablet by mouth once daily. allopurinol (ZYLOPRIM) 100 mg tablet Take 2 tablets by mouth once daily. For gout. acetaminophen (TYLENOL) 325 mg tablet Take 1 tablet by mouth every 4 hours as needed for pain. colchicine 0.6 mg tablet Take 2 tabs by mouth, followed by 1 tab one hour later for gout flare. May repeat in 1 week. naproxen (NAPROSYN) 500 mg tablet Take 1 tablet by mouth twice daily as needed (gout flare). Take with food. meclizine (ANTIVERT) 25 mg tab Take 1 tablet by mouth twice daily as needed. TAKE 1 TABLET BY MOUTH NEEDED. USES FOR TRAVELING ONLY. doxycycline (VIBRA-TABS) 100 mg tablet Take 1 tablet by mouth two times a day for 7 days. benzonatate (TESSALON PERLES) 100 mg capsule Take 1 capsule by mouth three times a day as needed for cough. aspirin 81 mg chewable tablet Take 1 tablet by mouth once daily. FAMILY HISTORY Problem Relation Age of Onset Cancer Mother liver Heart Father Lipids Father other (depression) Sister Multiple Sclerosis Brother Anesthesia Problems No Family History Social History Tobacco Use Smoking status: Form (more content not included)... Normal [facility] COVID AND INFLUENZA A/B AND RSV NAAT, ROUTINEon 05-07-2024 SARS-CoV-2 (COVID-19) RNA GISSELL+probe Ql (Unsp spec) COVID 19 RESULT: Detected The method used is RT-PCR or an equivalent NAAT method. Reference Range (the expected result in uninfected individuals): Not detected INFLUENZA A PCR: Not detected INFLUENZA B PCR: Not detected RSV PCR: Not detected Abnormal [facility] Comment on above: Performed By: #### C VFS #### [facility] CLIA [id number] [address] [place] [address] [place] XR CHEST 2V FRONTAL/LATon XR CHEST 2V FRONTAL/LAT * * *Final Report* * * DATE OF EXAM: May 07 2024 8:39AM WOX [id number] - XR CHEST 2V FRONTAL/LAT / PROCEDURE REASON: Acute cough * * * * Physician Interpretation * * * * EXAMINATION: CHEST RADIOGRAPH (2 VIEW FRONTAL and LATERAL) PATIENT/TECHNOLOGIST PROVIDED HISTORY: cough and congestion for 5 days CLINICAL HISTORY: 73 years old Male with Acute cough MQ: XC2_6 EXAM DATE/TIME: 05/07/2024 8:39 AM COMPARISON: Chest radiograph(s) dated 09/05/2023, 09/26/2021 RESULT: Lines, tubes, and devices: None. Lungs and pleura: Emphysema. No consolidation. No pleural effusion or pneumothorax. Cardiomediastinal silhouette: Normal cardiomediastinal silhouette. Bones and soft tissues: Endplate degenerative changes in the thoracic spine. IMPRESSION: No acute radiographic abnormality. Emphysema Sinter Feeder: [facility]Christian Transcribe Date/Time: May 07 2024 8:40A Dictated by : NORA STANFORD DO This examination was interpreted and the report reviewed and electronically signed by: NORA STANFORD DO on May 07 2024 8:42AM EST [id number] Normal [facility] XR Chest PA and Lateralon IMPRESSION: No acute radiographic abnormality. Emphysema Sinter Feeder: [employer] Transcribe Date/Time: May 07 2024 8:40A Dictated by : NORA STANFORD DO This examination was interpreted and the report reviewed and electronically signed by: NORA STANFORD DO on May 07 2024 8:42AM EST DIVISION OF RADIOLOGY * * *Final Report* * * DATE OF EXAM: May 07 2024 8:39AM WOX [id number] - XR CHEST 2V FRONTAL/LAT / PROCEDURE REASON: Acute cough * * * * Physician Interpretation * * * * EXAMINATION: CHEST RADIOGRAPH (2 VIEW FRONTAL & LATERAL) PATIENT/TECHNOLOGIST PROVIDED HISTORY: cough and congestion for 5 days CLINICAL HISTORY: 73 years old Male with Acute cough MQ: XC2_6 EXAM DATE/TIME: 05/07/2024 8:39 AM COMPARISON: Chest radiograph(s) dated 09/05/2023, 09/26/2021 RESULT: Lines, tubes, and devices: None. Lungs and pleura: Emphysema. No consolidation. No pleural effusion or pneumothorax. Cardiomediastinal silhouette: Normal cardiomediastinal silhouette. Bones and soft tissues: Endplate degenerative changes in the thoracic spine. DIVISION OF RADIOLOGY Provider, [facility] - 05/07/2024 * * *Final Report* * * DATE OF EXAM: May 07 2024 8:39AM WOX [id number] - XR CHEST 2V FRONTAL/LAT / PROCEDURE REASON: Acute cough * * * * Physician Interpretation * * * * EXAMINATION: CHEST RADIOGRAPH (2 VIEW FRONTAL & LATERAL) PATIENT/TECHNOLOGIST PROVIDED HISTORY: cough and congestion for 5 days CLINICAL HISTORY: 73 years old Male with Acute cough MQ: XC2_6 EXAM DATE/TIME: 05/07/2024 8:39 AM COMPARISON: Chest radiograph(s) dated 09/05/2023, 09/26/2021 RESULT: Lines, tubes, and devices: None. Lungs and pleura: Emphysema. No consolidation. No pleural effusion or pneumothorax. Cardiomediastinal silhouette: Normal cardiomediastinal silhouette. Bones and soft tissues: Endplate degenerative changes in the thoracic spine. IMPRESSION IMPRESSION: No acute radiographic abnormality. Emphysema Sinter Feeder: [facility] Transcribe Date/Time: May 07 2024 8:40A Dictated by : NROA STANFORD DO This examination was interpreted and the report reviewed and electronically signed by: NORA STANFORD DO on May 07 2024 8:42AM EST [facility] Radiology Study observation (narrative) [facility] XR Chest PA and LateralOrder ed By: Ccf Provider on 05-07-[address] [facility] CBC W Auto Differential pane l (Bld)on 01-09-2024 Basophils (Bld) [#/Vol] 0.13 10*3/uL High <0.11 k/uL [facility] Basophils/100 WBC (Bld) 1.7 % [facility] Differential cell count method Nom (Bld) Auto [facility] Eosinophils (Bld) [#/Vol] 0.55 10*3/uL High <0.46 k/uL [facility] Eosinophils/100 WBC (Bld) 7.4 % [facility] Erythrocyte distribution width (RBC) [Ratio] 15.0 % 11.5 - 15.0 % [facility] Hematocrit (Bld) [Volume fraction] 42.2 % 39.0 - 51.0 % [facility] Hemoglobin (Bld) [Mass/Vol] 13.1 g/dL 13.0 - 17.0 g/dL [facility] Immature granulocytes (Bld) [#/Vol] 0.03 10*3/uL <0.10 k/uL [facility] Immature granulocytes/100 WBC (Bld) 0.4 % [facility] Lymphocytes (Bld) [#/Vol] 2.44 10*3/uL 1.00 - 4.00 k/uL [facility] Lymphocytes/100 WBC (Bld) 32.7 % [facility] MCH (RBC) [Entitic mass] 27.3 pg 26.0 - 34.[address] [facility] MCHC (RBC) [Mass/Vol] 31.0 g/dL 30.5 - 36.0 g/dL [facility] MCV (RBC) [Entitic vol] 87.9 fL 80.0 - 100.[address] [facility] Monocytes (Bld) [#/Vol] 0.61 10*3/uL <0.87 k/uL [facility] Monocytes/100 WBC (Bld) 8.2 % [facility] Neutrophils (Bld) [#/Vol] 3.71 10*3/uL 1.45 - 7.50 k/uL [facility] Neutrophils/100 WBC (Bld) 49.6 % [facility] Nucleated RBC (Bld) [#/Vol] <0.01 k/uL [facility] Nucleated RBC/100 WBC (Bld) [Ratio] 0.0 /[address] [facility] Platelet mean volume (Bld) [Entitic vol] 9.1 fL 9.0 - 12.[address] [facility] Platelets (Bld) [#/Vol] 247 10*3/uL 150 - 400 k/uL [facility] RBC (Bld) [#/Vol] 4.80 10*6/uL 4.20 - 6.00 m/uL [facility] WBC (Bld) [#/Vol] 7.47 10*3/uL 3.70 - 11.00 k/uL [facility] Comprehensive metabolic 2000 panelon 01-09-2024 Albumin [Mass/Vol] 4.1 g/dL 3.9 - 4.9 g/dL [facility] ALP [Catalytic activity/Vol] 92 U/L 38 - 113 U/L [facility] ALT [Catalytic activity/Vol] 9 U/L Low 10 - 54 U/L [facility] Anion gap [Moles/Vol] 11 mmol/L 9 - 18 mmol/L [facility] AST [Catalytic activity/Vol] 18 U/L 14 - 40 U/L [facility] Bilirubin [Mass/Vol] 0.2 mg/dL 0.2 - 1 .3 mg/dL [facility] Calcium [Mass/Vol] 9.4 mg/dL 8.5 - 10. 2 mg/dL [facility] Chloride [Moles/Vol] 105 mmol/L 97 - 10 5 mmol/L [facility] CO2 [Moles/Vol] 25 mmol/L 22 - 30 mmol/L [facility] Creatinine [Mass/Vol] 1.00 mg/dL 0.73 - 1.22 mg/dL [facility] Estimated Glomerular Filtration Rate 79 mL/min/1.73m >=60 mL/min/1.[address] [facility] Glucose [Mass/Vol] 100 mg/dL High 74 - 99 mg/dL [facility] Potassium [Moles/Vol] 4.5 mmol/L 3.7 - 5.1 mmol/L [facility] Protein [Mass/Vol] 7.0 g/dL 6.3 - 8.0 g/dL [facility] Sodium [Moles/Vol] 141 mmol/L 136 - 144 mmol/L [facility] Urea nitrogen [Mass/Vol] 15 mg/dL 9 - 24 mg/dL [facility] URIC ACID BLOODon 01-09-2024 Urate [Mass/Vol] 4.1 mg/dL 4.0 - 8.1 mg/dL [facility] Basic metabolic 2000 panelon 09-10-2023 Anion gap [Moles/Vol] 13 mmol/L Normal 9-18 [facility] Comment on above: Order Comment: Speci men Type: BLOOD SPECIMENOrdering Facility: [facility] Address: [address] [id number] Performed By: #### 2 4321-2, , 27704-07 ####[facility] LABORATORYCLIA [id number] [place] [address] [place] Calcium [Mass/Vol] 8.6 mg/dL Normal 8.5-10.2 [facility] Comment on above: Order Comment: Speci men Type: BLOOD SPECIMENOrdering Facility: [facility] Address: [address] [place] [address] Performed By: #### 2 4321-2, , 2776-10 ####[facility]ORYCL[facility] [id number] [place] [address] [place] Chloride [Moles/Vol] 102 mmol/L Normal 97-105 [facility] Comment on above: Order Comment: Speci men Type: BLOOD SPECIMENOrdering Facility: [facility] Address: [address] [place] [address] Performed By: #### 2 4321-2, , 2776-10 ####[facility]ORATORYCLIA [id number] [place] [id number] [place] CO2 [Moles/Vol] 25 mmol/L Normal 22-30 [facility] Comment on above: Order Comment: Speci men Type: BLOOD SPECIMENOrdering Facility: [facility] Address: [address] [place] [address] Performed By: #### 2 4321-2, , 2776-10 ####[facility]ATORYCLIA [id number] [place] [id number] [place] Creatinine [Mass/Vol] 0.81 mg/dL Normal 0.73-1.22 [facility] Comment on above: Order Comment: Speci men Type: BLOOD SPECIMENOrdering Facility: [facility] Address: [address] [place] [address] Performed By: #### 2 4321-2, , 2776-10 ####[facility]ATORYCLIA [id number] [place] [id number] [place] Creatinine and Glomerular filtration rate.predicted panel (S/P/Bld) 93 mL/min/1.73m??? Normal >=60 [facility] Comment on above: Order Comment: Speci men Type: BLOOD SPECIMENOrdering Facility: [facility] Address: [address] [place] [address] Result Comment: Jonelle mated Glomerular Filtration Rate (eGFR) is calculated using the 2020 CKD-EPI creatinine equation. This equation utilizes serum creatinine, sex, and age as parameters. The creatinine assay has traceable calibration to isotope dilution-mass spectrometry. Refer to KDIGO guidelines for clinical interpretation. In patients with unstable renal function, e.g. those with acute kidney injury, the eGFR may not accurately reflect actual GFR. Performed By: #### 2 4321-2, , 2776-10 ####[facility]ATORYCLIA [id number] [place] [id number] [place] Glucose [Mass/Vol] 99 mg/dL Normal 74-99 [facility] Comment on above: Order Comment: Alex ortiz Type: BLOOD SPECIMENOrdering Facility: [facility] Address: [address] [place] [address] Result Comment: The [place] Diabetes Association (ADA) provides guidance for cutoff values for fasting glucose and random glucose. The ADA defines fasting as no caloric intake for at least 8 hours. Fasting plasma glucose results between 100 to 125 mg/dL indicate increased risk for diabetes (prediabetes). Fasting plasma glucose results greater than or equal to 126 mg/dL meet the criteria for diagnosis of diabetes. In the absence of unequivocal hyperglycemia, results should be confirmed by repeat testing. In a patient with classic symptoms of hyperglycemia or hyperglycemic crisis, random plasma glucose results greater than or equal to 200 mg/dL meet the criteria for diagnosis of diabetes. Reference: Standards of Medical Care in Diabetes 2016, [place] [employer] Association. Diabetes Care. 2016.39(Suppl 1). Performed By: #### 2 4321-2, , 2776-10 ####[facility]ATORYCLIA [id number] [place] [id number] [place] Potassium [Moles/Vol] 4.3 mmol/L Normal 3.7-5.1 [facility] Comment on above: Order Comment: Alex ortiz Type: BLOOD SPECIMENOrdering Facility: [facility] Address: [address] [place] [address] Performed By: #### 2 4321-2, , 2776-10 ####[facility]ORATORYCLIA [id number] [place] [id number] [place] Sodium [Moles/Vol] 140 mmol/L Normal 136-144 [facility] Comment on above: Order Comment: Alex ortiz Type: BLOOD SPECIMENOrdering Facility: [facility] Address: [address] [id number] Performed By: #### 2 4321-2, , 27704-07 ####[facility]ATORYCLIA [id number] [place] [address] [facility] Urea nitrogen [Mass/Vol] 14 mg/dL Normal 9-24 [facility] Comment on above: Order Comment: Speci men Type: BLOOD SPECIMENOrdering Facility: [facility] Address: [address] [id number] Performed By: #### 2 4321-2, , 2776-10 ####[facility]ATORYCLIA [id number] [place] [id number] [facility] CASE MANAGEMon 09-10-2023 CASE MANAGEM HNO ID: [id number] Author: Tash Shipman RN Service: ? Author Type: Registered Nurse Type: Care Mgt Progress Note Filed: 09/10/2023 12:51 PM Note Text: CARE MANAGEMENT DISCHARGE NOTE SERVICE DATE: September 10, 2023 SERVICE TIME: 12:49pm Admission Date: 09/05/2023 LOS: 5 days Discharge Arrangement Discharge Arrangement: Home with Self Care Services Arranged Patient denied any HHC services Provider Name: n/a Phone: Caregiver Assessment Caregiver is ready, willing and able to meet the patient's needs as recommended by the inter-professional team: No Transportation Arrangements Transportation Arrangements: Car Date of Trip: 09/10/23 Destination: home residence Handoff Communication: Handoff to: Primary Care Physician Primary Care Physician Name/Phone: Samuel Foy B., via muse Patient medically cleared for discharge today. Patient denied C services for PT/OT or nursing. Daughter at bedside, and will transport patient home. Nursing updated. SIGNATURE: Tash Shipman RN PATIENT NAME: Kris Cox DATE: September 10, 2023 TIME: 12:49 PM CONTACT #: [phone] [facility] CASE MANAGEM HNO ID: [id number] Author: Tash Shipman RN Service: ? Author Type: Registered Nurse Type: Care Mgt Progress Note Filed: 09/10/2023 12:48 PM Note Text: CARE MANAGEMENT PROGRESS NOTE SERVICE DATE: 09/10/2023 SERVICE TIME: 11:30am LOS: 5 days IMM Follow Up Copy Given: Yes Copy given to:: Patient Method: In Person SIGNATURE: Tash Shipman RN PATIENT NAME: Kris Cox DATE: September 10, 2023 TIME: 12:48 PM PAGER/CONTACT #: [phone] Normal [facility] CBC panel Auto (Bld)on 09-10 Erythrocyte distribution width (RBC) [Ratio] 13.0 % Normal 11.5-15.0 [facility] Comment on above: Order Comment: Speci men Type: BLOOD SPECIMENOrdering Facility: [facility] Address: [address] [place] [address] Performed By: #### 5 8410-2 ####[facility]ATORYCLIA [id number] [address] [place] Hematocrit (Bld) [Volume fraction] 32.9 % Low 39.0-51.0 [facility] Comment on above: Order Comment: Speci men Type: BLOOD SPECIMENOrdering Facility: [facility] Address: [address] [place] [address] Performed By: #### 5 8410-2 ####[facility]ATORYCLIA [id number] [place] [address] [place] Hemoglobin (Bld) [Mass/Vol] 10.9 g/dL Low 13.0-17.0 [facility] Comment on above: Order Comment: Speci men Type: BLOOD SPECIMENOrdering Facility: [facility] Address: [address] [place] [address] Performed By: #### 5 8410-2 ####[facility]ATORYCLIA [id number] [place] [id number] [place] MCH (RBC) [Entitic mass] 31.7 pg Normal 26.0-34.0 [facility] Comment on above: Order Comment: Speci men Type: BLOOD SPECIMENOrdering Facility: [facility] Address: [address] [place] [address] Performed By: #### 5 8410-2 ####[facility] LABORATORYCLIA [id number] [place] [address] [place] MCHC (RBC) [Mass/Vol] 33.1 g/dL Normal 30.5-36.0 [facility] Comment on above: Order Comment: Speci men Type: BLOOD SPECIMENOrdering Facility: [facility] Address: [address] [place] [address] Performed By: #### 5 8410-2 ####[facility]ORATORYCLIA [id number] [place] [address] [place] MCV (RBC) [Entitic vol] 95.6 fL Normal 80.0-100.0 [facility] Comment on above: Order Comment: Speci men Type: BLOOD SPECIMENOrdering Facility: [facility] Address: [address] [place] [address] Performed By: #### 5 8410-2 ####[facility]ORATORYCLIA [id number] [place] [address] [place] Nucleated RBC (Bld) [#/Vol] 10*3/uL Normal <0.01 [facility] Comment on above: Order Comment: Speci men Type: BLOOD SPECIMENOrdering Facility: [facility] Address: [address] [place] [address] Performed By: #### 5 8410-2 ####[facility]ORATORYCLIA [id number] [place] [address] [place] Platelet mean volume (Bld) [Entitic vol] 9.2 fL Normal 9.0-12.7 [facility] Comment on above: Order Comment: Speci men Type: BLOOD SPECIMENOrdering Facility: [facility] Address: [address] [place] [address] Performed By: #### 5 8410-2 ####[facility] LABORATORYCLIA [id number] [place] [address] [place] Platelets (Bld) [#/Vol] 223 10*3/uL Normal 150-400 [facility] Comment on above: Order Comment: Speci men Type: BLOOD SPECIMENOrdering Facility: [facility] Address: [address] [place] [address] Performed By: #### 5 8410-2 ####[facility]ATORYCLIA [id number] [place] [id number] [place] RBC (Bld) [#/Vol] 3.44 10*6/uL Low 4.20-6.00 [facility] Comment on above: Order Comment: Speci men Type: BLOOD SPECIMENOrdering Facility: [facility] Address: [address] [place] [address] Performed By: #### 5 8410-2 ####[facility]IA [id number] [place] [id number] [place] WBC (Bld) [#/Vol] 7.99 10*3/uL Normal 3.70-11.00 [facility] Comment on above: Order Comment: Speci men Type: BLOOD SPECIMENOrdering Facility: [facility] Address: [address] [place] [address] Performed By: #### 5 8410-2 ####[facility] [id number] [place] [id number] [place] Magnesium SerPl-mCncon 09-10 Magnesium [Mass/Vol] 2.0 mg/dL Normal 1.7-2.3 [facility] Comment on above: Order Comment: Speci men Type: BLOOD SPECIMENOrdering Facility: [facility] Address: [address] [place] [address] Performed By: #### 2 4321-2, 91876-0, 2777-1 ####[facility]ORYCLIA [id number] [place] [id number] [place] NURSING PROGon 09-10-2023 NURSING PROG HNO ID: [id number] Author: Lacy Gómez RN Service: ? Author Type: Registered Nurse Type: Nursing Progress Note Filed: 09/10/2023 2:57 PM Note Text: Other: Pt discharged home with daughter and transport via with discharge instructions sheets. Pt verbalized understanding of discharge instructions. Heplock discontinued. Normal [facility] Phosphate SerPl-mCncon 09-10 Phosphate [Mass/Vol] 2.7 mg/dL Normal 2.7-4.8 [facility] Comment on above: Order Comment: Speci men Type: BLOOD SPECIMENOrdering Facility: [facility] Address: [place] [address] Performed By: #### 2 4321-2, 81460-0, 2777-1 ####[facility] [id number] [address] THERAPY NTon 09-10-2023 THERAPY NT HNO ID: [id number] Author: Raul Cha, PT Service: Physical Therapy Author Type: Physical Therapist Type: Therapy (PT/OT/Speech/Resp) Filed: 09/10/2023 9:49 AM Note Text: Physical Therapy Evaluation SERVICE DATE: 09/10/2023 SERVICE TIME: 902 to 942 ROOM: [place] [address] Recommended Discharge Disposition: Home Anticipated Discharge Needs: Physical Assist at Home Physical Assist at Home for: Laundry, Cleaning, Shopping PT 6 Clicks Score: 23 Precautions/Activity Restrictions: Abdominal Precaution/Activity Restriction Comments: AAA repair Isolation Type: None Reason for Hospital Admission: AAA Relevant Past Medical History: HTN, CAD, Trigger finger, Verigo Response to Therapy Interventions: Good Participation in Activities Physical Therapy Problem List: Decreased Activity Tolerance Home Environment Patient Lives With: Self/Alone (Dtr staying with pt for 2 wks) Assistance Available: 24-Hour Entry To Home: No Stairs Number Of Stairs To Bed/Bath: 0 Equipment Owned: Cane, Walker- Wheeled Prior Functional Level: Within Functional Limits Prior Functional Level Comments: Pt reports indep with ADLs/IADLs and mobility. Subjective: Pt agreeable to PT CURRENT FUNCTIONAL STATUS: Most recent performance Current Functional Mobility Assist Level Additional Information Rolling Supine to Sit Sit to Supine Scooting Sit to Stand Verbal Cues Only, Stand By Assistance Stand to Sit Stand By Assistance Bed to Chair Toilet/Commode Stand By Assistance Gait Stand By Assistance Gait Device: None Gait Distance (feet): 200ft x1, 150ft x1, 30ft x2 Stairs Contact Guard Assistance Stairs Device: Rail Number of Stairs: 4 Curb Step Car Transfer Blank escobedo indicate activity not attempted General Deviations/Observations: Tana decreased, Flexed trunk posture Balance: Dynamic Standing, Static Standing Static Standing Balance: Normal Patient able to maintain steady balance without handhold support Dynamic Standing Balance: Good Patient accepts moderate challenge, able to maintain balance while picking up object off floor -HLM: 7: Walk 25 feet or more Learning/Educational Needs: Discharge Plan, Disease Process, Functional Activities/Mobility, Plan of Care, Safety Goals for Plan of Care: Patient/Caregiver Goals: Go Home Goals: Patient will demonstrate understanding of importance of mobility during hospital stay and resolve all functional needs identified. (Met) Patient will be discontinued from Physical Therapy when no further skilled needs are identified in this setting. PLAN: PT Frequency: Discontinue Therapy Services Reasons Therapy Services Discontinued: Goals met, No skilled needs Plan of Care developed with: Patient TREATMENT INTERVENTIONS: Therapy Diagnosis: Reduced mobility-other, Muscle Weakness (generalized), Unsteadiness on feet Interventions Provided: Evaluation, Therapeutic Activity (04638), Gait Training (32218) $ Evaluation-Low (65856) Billed Units: 1 unit Therapeutic Activity (11918) Treatment Minutes: 10 $ Therapeutic Activity (93994) Billed Units: 1 unit Gait Training (62511) Treatment Minutes: 13 $ Gait Training (13965) Billed Units: 1 unit Training AND Education Provided in: Anatomy and Impact on Deficits, Benefits of In-Hospital Mobility, Bed Mobility, Discharge Planning, Disease Specific Education, Energy Conservation, Expected Functional Level, Falls Prevention, Gait Pattern, Reduction of Deviations, Treatment Protocol, Transfers, Role of Physical Therapy, Positioning, Precautions/Restrictions The Following Therapeutic Skills Were Used: Activity Dosing, Cues for Sequencing/Proper Technique for Activity, Cuing Tactile, Cuing Verbal Timed Code Treatment (minutes): 23 Skilled Treatment Time (minutes): 38 Please see discipline specific clinical documentation flowsheet for complete details for this therapy evaluation/treatment. SIGNATURE: Raul Cha, PT PATIENT NAME: Kris Cxo DATE: September 10, 2023 TIME: 9:49 AM Normal [facility] Basic metabolic 2000 panelon 09-09-2023 Anion gap [Moles/Vol] 14 mmol/L Normal 9-18 [facility] Comment on above: Order Comment: Speci men Type: BLOOD SPECIMEN [facility] Address: [address] [place] [address] Performed By: #### 1 4979-9, 29519-0, 3255-04 #### [facility] CLIA [id number] [address] [place] [address] [place] Calcium [Mass/Vol] 8.3 mg/dL Low 8.5-10.2 [facility] Comment on above: Order Comment: Speci men Type: BLOOD SPECIMEN [facility] Address: [address] [place] [address] Performed By: #### 1 4979-9, 64168-8, 3255-04 #### [facility] CLIA [id number] [address] [place] [address] [place] Chloride [Moles/Vol] 104 mmol/L Normal 97-105 [facility] Comment on above: Order Comment: Speci men Type: BLOOD SPECIMEN [facility] Address: [address] [place] [address] Performed By: #### 1 4979-9, 34082-9, 3255-04 #### [facility] CLIA [id number] [address] [place] [address] [place] CO2 [Moles/Vol] 22 mmol/L Normal 22-30 [facility] Comment on above: Order Comment: Speci men Type: BLOOD SPECIMEN [facility] Address: [address] [place] [address] Performed By: #### 1 4979-9, 34572-5, 3255-04 #### [facility] CLIA [id number] [address] [place] [address] [place] Creatinine [Mass/Vol] 0.77 mg/dL Normal 0.73-1.22 [facility] Comment on above: Order Comment: Speci men Type: BLOOD SPECIMEN [facility] Address: [address] [place] [address] Performed By: #### 1 4979-9, 66351-6, 7 #### [facility] CLIA [id number] [address] [place] [address] [place] Creatinine and Glomerular filtration rate.predicted panel (S/P/Bld) 94 mL/min/1.73m??? Normal >=60 [facility] Comment on above: Order Comment: Alex ortiz Type: BLOOD SPECIMEN [facility] Address: [address] [place] [address] Result Comment: Jonelle mated Glomerular Filtration Rate (eGFR) is calculated using the 2020 CKD-EPI creatinine equation. This equation utilizes serum creatinine, sex, and age as parameters. The creatinine assay has traceable calibration to isotope dilution-mass spectrometry. Refer to KDIGO guidelines for clinical interpretation. In patients with unstable renal function, e.g. those with acute kidney injury, the eGFR may not accurately reflect actual GFR. Performed By: #### 1 4979-9, 41434-4, 325-7 #### [facility] CLIA [id number] [address] [place] [address] [place] Glucose [Mass/Vol] 86 mg/dL Normal 74-99 [facility] Comment on above: Order Comment: Alex ortiz Type: BLOOD SPECIMEN [facility] Address: [address] [place] [address] Result Comment: The [place] Diabetes Association (ADA) provides guidance for cutoff values for fasting glucose and random glucose. The ADA defines fasting as no caloric intake for at least 8 hours. Fasting plasma glucose results between 100 to 125 mg/dL indicate increased risk for diabetes (prediabetes). Fasting plasma glucose results greater than or equal to 126 mg/dL meet the criteria for diagnosis of diabetes. In the absence of unequivocal hyperglycemia, results should be confirmed by repeat testing. In a patient with classic symptoms of hyperglycemia or hyperglycemic crisis, random plasma glucose results greater than or equal to 200 mg/dL meet the criteria for diagnosis of diabetes. Reference: Standards of Medical Care in Diabetes 2016, [place] [employer] Association. Diabetes Care. 2016.39(Suppl 1). Performed By: #### 1 4979-9, 32758-2, 3257 #### [facility] CLIA [id number] [place] [address] [place] Potassium [Moles/Vol] 3.9 mmol/L Normal 3.7-5.1 [facility] Comment on above: Order Comment: Alex ortiz Type: BLOOD SPECIMEN [facility] Address: [address] [facility] [place] [address] Performed By: #### 1 4979-9, 77561-4, 3255-7 #### [facility] CLIA [id number] [address] [place] [address] [place] Sodium [Moles/Vol] 140 mmol/L Normal 136-144 [facility] Comment on above: Order Comment: Speci men Type: BLOOD SPECIMEN [facility] Address: [address] [place] [address] Performed By: #### 1 4979-9, 16212-3, 7 #### [facility] CLIA [id number] [address] [place] [address] [place] Urea nitrogen [Mass/Vol] 20 mg/dL Normal 9-24 [facility] Comment on above: Order Comment: Speci men Type: BLOOD SPECIMEN [facility] Address: [address] [place] [address] Performed By: #### 1 4979-9, 99861-9, 3255-04 #### [facility] CLIA [id number] [address] [place] [address] [place] CBC panel Auto (Bld)on 09-09 Erythrocyte distribution width (RBC) [Ratio] 13.0 % Normal 11.5-15.0 [facility] Comment on above: Order Comment: Speci men Type: BLOOD SPECIMEN [facility] Address: [address] [place] [address] Performed By: #### 3 255-7, 90177-3, #### [facility] CLIA [id number] [address] [place] [address] [place] Hematocrit (Bld) [Volume fraction] 31.8 % Low 39.0-51.0 [facility] Comment on above: Order Comment: Speci men Type: BLOOD SPECIMEN [facility] Address: [address] [place] [address] Performed By: #### 3 255-7, 64366-6, 79172-2 #### [facility] CLIA [id number] [place] Hemoglobin (Bld) [Mass/Vol] 10.7 g/dL Low 13.0-17.0 [facility] Comment on above: Order Comment: Speci men Type: BLOOD SPECIMEN [facility] Address: [address] [place] [address] Performed By: #### 3 255-7, 03773-3, 87933-3 #### [facility] CLIA [id number] [address] [place] [address] [place] MCH (RBC) [Entitic mass] 32.1 pg Normal 26.0-34.0 [facility] Comment on above: Order Comment: Speci men Type: BLOOD SPECIMEN [facility] Address: [address] [place] [address] Performed By: #### 3 255-7, 81174-2, 26438-7 #### [facility] CLIA [id number] [address] [place] [address] [place] MCHC (RBC) [Mass/Vol] 33.6 g/dL Normal 30.5-36.0 [facility] Comment on above: Order Comment: Speci men Type: BLOOD SPECIMEN [facility] Address: [address] [place] [address] Performed By: #### 3 255-7, 00460-2, 69262-0 #### [facility] CLIA [id number] [address] [place] [address] [place] MCV (RBC) [Entitic vol] 95.5 fL Normal 80.0-100.0 [facility] Comment on above: Order Comment: Speci men Type: BLOOD SPECIMEN [facility] Address: [address] [place] [address] Performed By: #### 3 255-7, 59744-0, 67932-4 #### [facility] CLIA [id number] [address] [place] [address] [place] Nucleated RBC (Bld) [#/Vol] 10*3/uL Normal <0.01 [facility] Comment on above: Order Comment: Speci men Type: BLOOD SPECIMEN [facility] Address: [address] [place] [address] Performed By: #### 3 255-7, 48724-3, 42779-0 #### [facility] CLIA [id number] [address] [place] [address] [place] Platelet mean volume (Bld) [Entitic vol] 9.4 fL Normal 9.0-12.7 [facility] Comment on above: Order Comment: Speci men Type: BLOOD SPECIMEN [facility] Address: [address] [place] [address] Performed By: #### 3 255-7, 34486-7, 27124-0 #### [facility] CLIA [id number] [address] [place] [address] [place] Platelets (Bld) [#/Vol] 157 10*3/uL Normal 150-400 [facility] Comment on above: Order Comment: Speci men Type: BLOOD SPECIMEN [facility] Address: [address] [place] [address] Performed By: #### 3 255-7, 04639-6, 76015-6 #### [facility] CLIA [id number] [address] [place] [address] [place] RBC (Bld) [#/Vol] 3.33 10*6/uL Low 4.20-6.00 [facility] Comment on above: Order Comment: Speci men Type: BLOOD SPECIMEN [facility] Address: [address] [place] [address] Performed By: #### 3 255-7, 66564-1, 78211-9 #### [facility] CLIA [id number] [address] [place], [place] [address] [place] WBC (Bld) [#/Vol] 10.38 10*3/uL Normal 3.70-11.00 [facility] Comment on above: Order Comment: Speci men Type: BLOOD SPECIMEN [facility] Address: [address] [place] [address] Performed By: #### 3 255-7, 12936-6, 97581-7 #### [facility] [id number] [address] [place] [address] [place] CONSULT PROGon 09-09-2023 CONSULT PROG HNO ID: [id number] Author: Stanley Barrera PA-C Service: Pain Management Author Type: Physician Splicer Apprentice Type: Consult Progress Note Filed: 09/09/2023 10:01 AM Note Text: EPIDURAL CATHETER PROGRESS NOTE PATIENT NAME: Kris Cox SERVICE DATE: 09/09/2023 SERVICE TIME: 9:25 AM PRIMARY SERVICE: Vascular ASSESSMENT : Kris Cox is a 73 year old male with pmhx: duodenal stricture, HTN, HLD, and AAA who is POD# 4, S/P Open AAA repair with T9-10 Epidural placed to aid in post op pain control. Patient reports good pain control 0/10 pain. Epidural site without signs or symptoms of infection, no erythema, tenderness, drainage, or warmth. He is NPO, NGT in place. Platelet count 157 Anticoagulation therapy: heparin 5000 units SQ Q 12 Last Dose given: 2004 last PM none given this AM PLAN/Recs: D/C epidural- catheter removed with tip intact, patient tolerated procedure well, band aid applied, APMS will sign off. Noted abrasions to where tape was removed around epidural tape. Will order some bacitracin to be placed to this site discussed with nurse. The plan was discussed in detail with patient +/- family, bedside RN, APMS staff and primary service, who expressed agreement, understanding and comfort with the plan. Thank you for including us in his care. Please call us with any questions or concerns. SUBJECTIVE Interval HPI: Kris Cox is a 73 year old male who is POD# 4, S/P Open AAA repair with T9-10 Epidural placed to aid in post op pain control. Pain at surgical site? Yes, abd Condition of surgical site: incision c/d/i Other locations of pain? Yes. Location: lower back Pain score at rest: 0 Pain score with movement (cough, deep breathe, ambulation, etc): 3 Able to cough/deep breathe adequately?:Yes Has patient been out of bed in a chair? yes Has patient been ambulating?: not yet Is the patient tolerating Physical Therapy?: OOB to chair Character: aching Duration: intermittent Radiation: Yes - lower back Relieved: Yes - Epidural bolus Is patient satisfied with pain control: Yes with epidural Overnight Events: None Overnight Pain Interventions: no Diet: NPO OBJECTIVE PERTINENT ROS: ALLERGIES ALLERGIES No Known Allergies Information retrieved from Allergy section. Is the patient intubated and sedated? No. Numbness?: No Weakness?: No Nausea?: No Vomitting?: No Pruritis?: No Back pain?: No Headache?: No Sedation?: No Confusion/Delirium?: No Other: none Epidural Location: Thoracic Epidural catheter placed: Day of surgery MEDICATIONS: Epidural Medications and MARKETING INFORMATION COORDINATOR Settings Bupivacaine 0.0625% + Fentanyl 2 mcg/mL Basal rate: 4 mL/hr. Patient Demand Bolus: 2 mL. Lockout interval: 15 minutes. Patient received 4/4 doses in the last 4 hours Additional medication(s) given: See below Anticoagulation therapy: heparin 5000 units SQ Q 12 Last Dose given: 2004 last PM none given this AM Current Facility-Administered Medications Medication Dose Route Frequency magnesium sulfate 1 g in D5W 100 mL 1 g INTRAVENOUS PRN magnesium sulfate iv piggyback in sterile water 2 g 50 mL 2 g INTRAVENOUS PRN pantoprazole 40 mg injection (PROTONIX) 40 mg INTRAVENOUS BID AC (0600/1600) metoprolol 5 mg injection (LOPRESSOR) 5 mg INTRAVENOUS q 6 HR NaCl 0.9% iv flush bag 20 mL INTRAVENOUS PRN ondansetron (PF) 4 mg injection (ZOFRAN) 4 mg INTRAVENOUS q 6 H PRN albuterol 2.5 mg /3 mL (0.083 %) 2.5 mg (PROVENTIL) 2.5 mg INHALATION q 6 H PRN fentaNYL 50 mcg/mL 25 mcg injection (SUBLIMAZE) 25 mcg INTRAVENOUS q 2 H PRN labetalol 10 mg injection syringe (NORMODYNE) 10 mg INTRAVENOUS q 2 H PRN hydrALAZINE 10 mg injection (APRESOLINE) 10 mg INTRAVENOUS q 1 H PRN diclofenac 1.3 % 1 Patch (FLECTOR) 1 Patch TRANSDERMAL BID And diclofenac - REMOVE PATCH OTHER BID And diclofenac - VERIFY PATCH OTHER q 8 H NaCl 0.9% iv infusion 5-30 mL/hr INTRAVENOUS CONTINUOUS bupivacaine 0.0625%-fentaNYL (PF) 2 mcg/mL epidural in NaCl 0.9% 250 mL EPIDURAL CONTINUOUS aspirin 81 mg chewable tab(s) 81 mg ORAL DAILY heparin 5,000 Units injection 5,000 Units SUBCUTANEOUS q 12 H OBJECTIVE: PHYSICAL EXAM: Patient Vitals for the past 3 hrs: BP Temp src Pulse Resp SpO2 09/09/23 0712 148/68 Oral 84 20 97 % Affect: awake, alert, and oriented General Impression: appears comfortable Catheter site is: clean, non-tender, and with dressing intact. Neurologic Exam: Sensory exam: intact. Motor Exam: intact. Respiratory Exam: Respirations: Breathing appears normal Thoracostomy tube?: No Gastrointestinal Exam: Abd: soft, incision c/d/i NG?: Yes DATA: Lab Results Recent Labs 09/09/23 0532 WBC 10.38 RBC 3.33* HB 10.7* HCT 31.8* PLT 157 MCV 95.5 MCH 32.1 MPV 9.4 Recent Labs 09/07/23 0640 INR <0.9* APTT 25.8 PTSEC 10.3 Recent Labs 09/09/23 0532 NA 140 K 3.9 CHLOR 104 CO2 22 BUN 20 (more content not included)... Normal [facility] Magnesium [facility] 09-09 Magnesium [Mass/Vol] 2.1 mg/dL Normal 1.7-2.3 [facility] Comment on above: Order Comment: Speci men Type: BLOOD SPECIMEN [facility] Address: [address] [place] [address] Performed By: #### 1 4979-9, 25376-0, 3255-7 #### [facility] CLIA [id number] [place] [id number] [place] Phosphate [facility] 09-09 Phosphate [Mass/Vol] 2.2 mg/dL Low 2.7-4.8 [facility] Comment on above: Order Comment: Speci men Type: BLOOD SPECIMEN [facility] Address: [address] [place] [address] Performed By: #### 1 4979-9, 70651-1, 3255-7 #### [facility] CLIA [id number] [place] [id number] [place] Basic metabolic 2000 panelon 09-08-2023 Anion gap [Moles/Vol] 12 mmol/L Normal 9-18 [facility] Comment on above: Order Comment: Speci men Type: BLOOD SPECIMENOrdering Facility: [facility] Address: [address] [place] [address] Performed By: #### 1 9123-9, 2776-10, ####[facility] [id number] [place] [id number] [place] Calcium [Mass/Vol] 8.3 mg/dL Low 8.5-10.2 [facility] Comment on above: Order Comment: Speci men Type: BLOOD SPECIMENOrdering Facility: [facility] Address: [address] [place] [address] Performed By: #### 1 9123-9, 2776-10, 26536-1 ####[facility]ATORYCLIA [id number] [place] [address] [place] Chloride [Moles/Vol] 104 mmol/L Normal 97-105 [facility] Comment on above: Order Comment: Speci men Type: BLOOD SPECIMENOrdering Facility: [facility] Address: [address] [place] [address] Performed By: #### 1 9123-9, 2776-10, ####[facility]ORATORYCLIA [id number] [place] [id number] [place] CO2 [Moles/Vol] 24 mmol/L Normal 22-30 [facility] Comment on above: Order Comment: Speci men Type: BLOOD SPECIMENOrdering Facility: [facility] Address: [address] [place] [address] Performed By: #### 1 9123-9, 27704-07, 51860-2 ####[facility] LABORATORYCLIA [id number] [place] [id number] [place] Creatinine [Mass/Vol] 0.91 mg/dL Normal 0.73-1.22 [facility] Comment on above: Order Comment: Speci men Type: BLOOD SPECIMENOrdering Facility: [facility] Address: [address] [place] [place] [address] Performed By: #### 1 9123-9, 2777-1, 24431-1 ####[facility] [id number] [place] [id number] [place] Creatinine and Glomerular filtration rate.predicted panel (S/P/Bld) 88 mL/min/1.73m??? Normal >=60 [facility] Comment on above: Order Comment: Alex ortiz Type: BLOOD SPECIMENOrdering Facility: [facility] Address: [address] [place] [address] Result Comment: Jonelle mated Glomerular Filtration Rate (eGFR) is calculated using the 2020 CKD-EPI creatinine equation. This equation utilizes serum creatinine, sex, and age as parameters. The creatinine assay has traceable calibration to isotope dilution-mass spectrometry. Refer to KDIGO guidelines for clinical interpretation. In patients with unstable renal function, e.g. those with acute kidney injury, the eGFR may not accurately reflect actual GFR. Performed By: #### 1 9123-9, 2777-1, 69786-4 ####[facility] [id number] [place] [id number] [place] Glucose [Mass/Vol] 96 mg/dL Normal 74-99 [facility] Comment on above: Order Comment: Alex ortiz Type: BLOOD SPECIMENOrdering Facility: [facility] Address: [address] [place] [address] Result Comment: The [place] Diabetes [employer] (ADA) provides guidance for cutoff values for fasting glucose and random glucose. The ADA defines fasting as no caloric intake for at least 8 hours. Fasting plasma glucose results between 100 to 125 mg/dL indicate increased risk for diabetes (prediabetes). Fasting plasma glucose results greater than or equal to 126 mg/dL meet the criteria for diagnosis of diabetes. In the absence of unequivocal hyperglycemia, results should be confirmed by repeat testing. In a patient with classic symptoms of hyperglycemia or hyperglycemic crisis, random plasma glucose results greater than or equal to 200 mg/dL meet the criteria for diagnosis of diabetes. Reference: Standards of Medical Care in Diabetes 2016, [place] [employer]. Diabetes Care. 2016.39(Suppl 1). Performed By: #### 1 9123-9, 2777-1, 25431-8 ####[facility]IA [id number] [place] [id number] [place] Potassium [Moles/Vol] 4.5 mmol/L Normal 3.7-5.1 [facility] Comment on above: Order Comment: Speci men Type: BLOOD SPECIMENOrdering Facility: [facility] Address: [address] [place] [address] Performed By: #### 1 9123-9, 2777-1, 36733-9 ####[facility] LABORATORYCLIA [id number] [place] [id number] [place] Sodium [Moles/Vol] 140 mmol/L Normal 136-144 [facility] Comment on above: Order Comment: Speci men Type: BLOOD SPECIMENOrdering Facility: [facility] Address: [address] [place] [address] Performed By: #### 1 9123-9, 2777-1, 36910-9 ####[facility] LABORATORYCLIA [id number] [place] [id number] [place] Urea nitrogen [Mass/Vol] 18 mg/dL Normal 9-24 [facility] Comment on above: Order Comment: Speci men Type: BLOOD SPECIMENOrdering Facility: [facility] Address: [address] [place] [address] Performed By: #### 1 9123-9, 2777-1, 56030-4 ####[facility] LABORATORYCLIA [id number] [place] [id number] [place] CBC panel Auto (Bld)on 09-08 Erythrocyte distribution width (RBC) [Ratio] 13.2 % Normal 11.5-15.0 [facility] Comment on above: Order Comment: Speci men Type: BLOOD SPECIMEN [facility] Address: [address] [place] [address] Performed By: #### 1 4979-9, 66434-2, 3255-7 #### [facility] CLIA [id number] [place] [address] [place] Hematocrit (Bld) [Volume fraction] 32.4 % Low 39.0-51.0 [facility] Comment on above: Order Comment: Speci men Type: BLOOD SPECIMEN [facility]ing [facility]: [facility] Address: [address] [place] [address] Performed By: #### 1 4979-9, 58539-7, 3255-04 #### [facility] CLIA [id number] [address] [place] [address] [place] Hemoglobin (Bld) [Mass/Vol] 10.7 g/dL Low 13.0-17.0 [facility] Comment on above: Order Comment: Speci men Type: BLOOD SPECIMEN [facility]ing [facility]: [facility] Address: [address] [place] [address] Performed By: #### 1 4979-9, 84039-4, 3255-04 #### [facility] CLIA [id number] [address] [place] [address] [place] MCH (RBC) [Entitic mass] 32.2 pg Normal 26.0-34.0 [facility] Comment on above: Order Comment: Speci men Type: BLOOD SPECIMEN [facility] Address: [address] [place] [address] Performed By: #### 1 4979-9, 87871-0, 3255-04 #### [facility] CLIA [id number] [address] [place] [address] [place] MCHC (RBC) [Mass/Vol] 33.0 g/dL Normal 30.5-36.0 [facility] Comment on above: Order Comment: Speci men Type: BLOOD SPECIMEN [facility]ing [facility] Address: [address] [place] [address] Performed By: #### 1 4979-9, 77617-0, 3255-04 #### [facility] CLIA [id number] [address] [place] [address] [place] MCV (RBC) [Entitic vol] 97.6 fL Normal 80.0-100.0 [facility] Comment on above: Order Comment: Speci men Type: BLOOD SPECIMEN [facility] Address: [address] [place] [address] Performed By: #### 1 4979-9, 41977-3, 7 #### [facility] CLIA [id number] [address] [place] [address] [place] Nucleated RBC (Bld) [#/Vol] 10*3/uL Normal <0.01 [facility] Comment on above: Order Comment: Speci men Type: BLOOD SPECIMEN [facility] Address: [address] [place] [address] Performed By: #### 1 4979-9, 06846-9, 3255-04 #### [facility] CLIA [id number] [address] [place] [address] [place] Platelet mean volume (Bld) [Entitic vol] 9.1 fL Normal 9.0-12.7 [facility] Comment on above: Order Comment: Speci men Type: BLOOD SPECIMEN [facility] Address: [address] [place] [address] Performed By: #### 1 4979-9, 34586-6, 3255-04 #### [facility] CLIA [id number] [address] [place] [address] [place] Platelets (Bld) [#/Vol] 142 10*3/uL Low 150-400 [facility] Comment on above: Order Comment: Speci men Type: BLOOD SPECIMEN [facility] Address: [address] [place] [address] Performed By: #### 1 4979-9, 47425-7, 3255-04 #### [facility] CLIA [id number] [address] [place] [address] [place] RBC (Bld) [#/Vol] 3.32 10*6/uL Low 4.20-6.00 [facility] Comment on above: Order Comment: Speci men Type: BLOOD SPECIMEN [facility] Address: [address] [place] [address] Performed By: #### 1 4979-9, 73990-8, 325-7 #### [facility] CLIA [id number] [address] [place] [address] [place] WBC (Bld) [#/Vol] 13.29 10*3/uL High 3.70-11.00 [facility] Comment on above: Order Comment: Speci men Type: BLOOD SPECIMEN [facility] Address: [place] [id number] Performed By: #### 1 4979-9, 39509-6, 3255-7 #### [facility] CLIA [id number] CONSULT PROGon 09-08-2023 CONSULT PROG HNO ID: [id number] Author: Stanley Barrera PA-C Service: Pain Management Author Type: Physician Splicer Apprentice Type: Consult Progress Note Filed: 09/08/2023 10:24 AM Note Text: EPIDURAL CATHETER PROGRESS NOTE PATIENT NAME: Kris Cox SERVICE DATE: 09/08/2023 SERVICE TIME: 10:20 AM PRIMARY SERVICE: Vascular ASSESSMENT : Kris Cox is a 73 year old male with pmhx: duodenal stricture, HTN, HLD, and AAA who is POD# 3, S/P Open AAA repair with T9-10 Epidural placed to aid in post op pain control. Patient reports good pain control 0/10 pain. Epidural site without signs or symptoms of infection, no erythema, tenderness, drainage, or warmth. He is NPO, NGT in place. PLAN/Recs: Epidural Bupi 0.0625%/Fent at 4/2/30/2 epidural analgesia to promote comfort, mobility, and pulmonary toilet and to avoid hypotension ( currently 134/71) Continue Acetaminophen 650 mg PO Q 6 h Continue Flector to lower back BID Continue Fentanyl 25 mcg IV Q 2 h hr PRN BTP Bowel regimen per primary team Encourage OOB and IS as tolerated The plan was discussed in detail with patient +/- family, bedside RN, APMS staff and primary service, who expressed agreement, understanding and comfort with the plan. Thank you for including us in his care. Please call us with any questions or concerns. APMS will continue to follow. SUBJECTIVE Interval HPI: Kris Cox is a 73 year old male who is POD# 3, S/P Open AAA repair with T9-10 Epidural placed to aid in post op pain control. Pain at surgical site? Yes, abd Condition of surgical site: incision c/d/i Other locations of pain? Yes. Location: lower back Pain score at rest: 0 Pain score with movement (cough, deep breathe, ambulation, etc): 3 Able to cough/deep breathe adequately?:Yes Has patient been out of bed in a chair? yes Has patient been ambulating?: not yet Is the patient tolerating Physical Therapy?: OOB to chair Character: aching Duration: intermittent Radiation: Yes - lower back Relieved: Yes - Epidural bolus Is patient satisfied with pain control: Yes with epidural Overnight Events: None Overnight Pain Interventions: no Diet: NPO OBJECTIVE PERTINENT ROS: ALLERGIES ALLERGIES No Known Allergies Information retrieved from Allergy section. Is the patient intubated and sedated? No. Numbness?: No Weakness?: No Nausea?: No Vomitting?: No Pruritis?: No Back pain?: No Headache?: No Sedation?: No Confusion/Delirium?: No Other: none Epidural Location: Thoracic Epidural catheter placed: Day of surgery MEDICATIONS: Epidural Medications and MARKETING INFORMATION COORDINATOR Settings Bupivacaine 0.0625% + Fentanyl 2 mcg/mL Basal rate: 4 mL/hr. Patient Demand Bolus: 2 mL. Lockout interval: 15 minutes. Patient received 8/8 doses in the last 4 hours Additional medication(s) given: See below Anticoagulation therapy: heparin 5000 units SQ Q 12 Last Dose given: 0915 AM Allergy: ALLERGIES No Known Allergies MEDICATIONS: Current Facility-Administered Medications Medication Dose Route Frequency magnesium sulfate 1 g in D5W 100 mL 1 g INTRAVENOUS PRN magnesium sulfate iv piggyback in sterile water 2 g 50 mL 2 g INTRAVENOUS PRN pantoprazole 40 mg injection (PROTONIX) 40 mg INTRAVENOUS BID AC (0600/1600) metoprolol 5 mg injection (LOPRESSOR) 5 mg INTRAVENOUS q 6 HR NaCl 0.9% iv flush bag 20 mL INTRAVENOUS PRN ondansetron (PF) 4 mg injection (ZOFRAN) 4 mg INTRAVENOUS q 6 H PRN albuterol 2.5 mg /3 mL (0.083 %) 2.5 mg (PROVENTIL) 2.5 mg INHALATION q 6 H PRN fentaNYL 50 mcg/mL 25 mcg injection (SUBLIMAZE) 25 mcg INTRAVENOUS q 2 H PRN labetalol 10 mg injection syringe (NORMODYNE) 10 mg INTRAVENOUS q 2 H PRN hydrALAZINE 10 mg injection (APRESOLINE) 10 mg INTRAVENOUS q 1 H PRN diclofenac 1.3 % 1 Patch (FLECTOR) 1 Patch TRANSDERMAL BID And diclofenac - REMOVE PATCH OTHER BID And diclofenac - VERIFY PATCH OTHER q 8 H NaCl 0.9% iv infusion 5-30 mL/hr INTRAVENOUS CONTINUOUS bupivacaine 0.0625%-fentaNYL (PF) 2 mcg/mL epidural in NaCl 0.9% 250 mL EPIDURAL CONTINUOUS aspirin 81 mg chewable tab(s) 81 mg ORAL DAILY heparin 5,000 Units injection 5,000 Units SUBCUTANEOUS q 12 H OBJECTIVE: PHYSICAL EXAM: Patient Vitals for the past 3 hrs: BP Temp Temp src Pulse Resp SpO2 09/07/23 1346 160/68 -- -- 92 -- -- 09/07/23 1207 125/55 36.4 ?C (97.5 ?F) Oral 89 16 94 % Affect: awake, alert, and oriented General Impression: appears comfortable Catheter site is: clean, non-tender, and with dressing intact. Neurologic Exam: Sensory exam: intact. Motor Exam: intact. Respiratory Exam: Respirations: Breathing appears normal Thoracostomy tube?: No Gastrointestinal Exam: Abd: soft, incision c/d/i NG?: Yes DATA: Lab Results Recent Labs 09/07/23 0640 WBC 13.73* RBC 3.32* HB 10.7* HCT 32.4* PLT 128* MCV 97.6 MCH 32.2 MPV 9.3 Recent Labs 09/07/23 0640 INR <0.9* APTT 25.8 P (more content not included)... Normal [facility] Magnesium [facility]-ncon 09-08 Magnesium [Mass/Vol] 2.2 mg/dL Normal 1.7-2.3 [facility] Comment on above: Order Comment: Speci men Type: BLOOD SPECIMENOrdering Facility: [facility] Address: [place] [address] Performed By: #### 1 9123-9, 2777-1, 33189-7 ####[facility]ORYCLIA [id number] [place] [address] [place] Phosphate SerPl-mCncon 09-08 Phosphate [Mass/Vol] 2.4 mg/dL Low 2.7-4.8 [facility] Comment on above: Order Comment: Speci men Type: BLOOD SPECIMENOrdering Facility: [facility] Address: [address] [facility] [address] Performed By: #### 1 9123-9, 2777-1, 07682-9 ####[facility]CLIA [id number] [place] [id number] [place] ALLIED HEALTHon 09-07-2023 ALLIED HEALTH HNO ID: [id number] Author: Lawrence Luz Chaplain Service: Spiritual Care Author Type: Health Physics Technician Type: Allied Health Filed: 09/07/2023 3:09 PM Note Text: SPIRITUALCARE Spiritual Care Visit- Brief Note Name: Kris Cox Date: September 07, 2023 Notes: While engaging in spiritual care rounds on the SICU unit, I made a f/u visit with the patient and I provided spiritual presence and bucolic support through empathetic care and through offer of prayers for the patient at the bedside. Health Physics Technician Signature: Chaplain Shyam To contact the Spiritual Care Department: Please call [phone] or Page the On-Call Health Physics Technician at pager [phone]. Thank you for the opportunity to be of service This is an electronically created document. IF PRINTED, PLEASE DO NOT REMOVE FROM THE CHART OR MODIFY PRINTED COPY. Normal [facility] Basic metabolic 2000 panelon 09-07-2023 Anion gap [Moles/Vol] 9 mmol/L Normal 9-18 [facility] Comment on above: Order Comment: Speci men Type: BLOOD SPECIMENOrdering Facility: [facility] Address: [place] [address] Performed By: #### 2 4321-2 ####[facility]ORYCLIA [id number] [place] [address] [place] Calcium [Mass/Vol] 8.1 mg/dL Low 8.5-10.2 [facility] Comment on above: Order Comment: Speci men Type: BLOOD SPECIMENOrdering Facility: [facility] Address: [address] [place] [id number] Performed By: #### 2 4321-2 ####[facility]ORYCLIA [id number] [place] [id number] [place] Chloride [Moles/Vol] 106 mmol/L High 97-105 [facility] Comment on above: Order Comment: Speci men Type: BLOOD SPECIMENOrdering Facility: [facility] Address: [address] [place] [address] Performed By: #### 2 4321-2 ####[facility]ORYCLIA [id number] [place] [id number] [place] CO2 [Moles/Vol] 26 mmol/L Normal 22-30 [facility] Comment on above: Order Comment: Speci men Type: BLOOD SPECIMENOrdering Facility: [facility] Address: [address] [place] [address] Performed By: #### 2 4321-2 ####[facility]ORYCLIA [id number] [place] [id number] [place] Creatinine [Mass/Vol] 1.00 mg/dL Normal 0.73-1.22 [facility] Comment on above: Order Comment: Speci men Type: BLOOD SPECIMENOrdering Facility: [facility] Address: [address] [place] [address] Performed By: #### 2 4321-2 ####[facility]ATORYCLIA [id number] [place] [id number] [facility] Creatinine and Glomerular filtration rate.predicted panel (S/P/Bld) 79 mL/min/1.73m??? Normal >=60 [facility] Comment on above: Order Comment: Speci men Type: BLOOD SPECIMENOrdering Facility: [facility] Address: [address] [place] [address] Result Comment: Jonelle mated Glomerular Filtration Rate (eGFR) is calculated using the 2020 CKD-EPI creatinine equation. This equation utilizes serum creatinine, sex, and age as parameters. The creatinine assay has traceable calibration to isotope dilution-mass spectrometry. Refer to KDIGO guidelines for clinical interpretation. In patients with unstable renal function, e.g. those with acute kidney injury, the eGFR may not accurately reflect actual GFR. Performed By: #### 2 4321-2 ####[facility]ORYCLIA [id number] [place] [id number] [place] Glucose [Mass/Vol] 106 mg/dL High 74-99 [facility] Comment on above: Order Comment: Speci angel Type: BLOOD SPECIMENOrdering Facility: [facility] Address: [address] [place] [address] Result Comment: The [place] [employer] (ADA) provides guidance for cutoff values for fasting glucose and random glucose. The ADA defines fasting as no caloric intake for at least 8 hours. Fasting plasma glucose results between 100 to 125 mg/dL indicate increased risk for diabetes (prediabetes). Fasting plasma glucose results greater than or equal to 126 mg/dL meet the criteria for diagnosis of diabetes. In the absence of unequivocal hyperglycemia, results should be confirmed by repeat testing. In a patient with classic symptoms of hyperglycemia or hyperglycemic crisis, random plasma glucose results greater than or equal to 200 mg/dL meet the criteria for diagnosis of diabetes. Reference: Standards of Medical Care in Diabetes 2016, [place] [employer]. Diabetes Care. 2016.39(Suppl 1). Performed By: #### 2 4321-2 ####[facility] LABORATORYCLIA [id number] [place] [id number] [place] Potassium [Moles/Vol] 4.6 mmol/L Normal 3.7-5.1 [facility] Comment on above: Order Comment: Alex angel Type: BLOOD SPECIMENOrdering Facility: [facility] Address: [address] [place] [address] Performed By: #### 2 4321-2 ####[facility] LABORATORYCLIA [id number] [place] [id number] [place] Sodium [Moles/Vol] 141 mmol/L Normal 136-144 [facility] Comment on above: Order Comment: Dixoni angel Type: BLOOD SPECIMENOrdering Facility: [facility] Address: [address] [place] [address] Performed By: #### 2 4321-2 ####[facility]ATORYCLIA [id number] [place] [address] [place] Urea nitrogen [Mass/Vol] 18 mg/dL Normal 9-24 [facility] Comment on above: Order Comment: Speci men Type: BLOOD SPECIMENOrdering Facility: [facility] Address: [address] [place] [address] Performed By: #### 2 4321-2 ####[facility]ORATORYCLIA [id number] [place] [address] [place] Anion gap [Moles/Vol] 8 mmol/L Low 9-18 [facility] Comment on above: Order Comment: Speci men Type: BLOOD SPECIMEN [facility] Address: [address] [place] [address] Performed By: #### 1 4979-9, 79808-6, 7 #### [facility] CLIA [id number] [place] [address] [place] Calcium [Mass/Vol] 8.1 mg/dL Low 8.5-10.2 [facility] Comment on above: Order Comment: Speci men Type: BLOOD SPECIMEN [facility] Address: [address] [place] [address] Performed By: #### 1 4979-9, 24489-9, 7 #### [facility] CLIA [id number] [place] [address] [place] Chloride [Moles/Vol] 105 mmol/L Normal 97-105 [facility] Comment on above: Order Comment: Speci men Type: BLOOD SPECIMEN [facility] Address: [address] [place] [address] Performed By: #### 1 4979-9, 62774-3, 3254-7 #### [facility] CLIA [id number] [place] [address] [place] CO2 [Moles/Vol] 26 mmol/L Normal 22-30 [facility] Comment on above: Order Comment: Speci men Type: BLOOD SPECIMEN [facility] Address: [address] [place] [address] Performed By: #### 1 4979-9, 87870-2, 3255-7 #### [facility] CLIA [id number] [place] [address] [place] Creatinine [Mass/Vol] 1.01 mg/dL Normal 0.73-1.22 [facility] Comment on above: Order Comment: Alex ortiz Type: BLOOD SPECIMEN [facility] Address: [address] [place] [address] Performed By: #### 1 4979-9, 56647-4, 3255-04 #### [facility] CLIA [id number] [place] [address] [place] Creatinine and Glomerular filtration rate.predicted panel (S/P/Bld) 78 mL/min/1.73m??? Normal >=60 [facility] Comment on above: Order Comment: Alex ortiz Type: BLOOD SPECIMEN [facility] Address: [address] [place] [address] Result Comment: Jonelle mated Glomerular Filtration Rate (eGFR) is calculated using the 2020 CKD-EPI creatinine equation. This equation utilizes serum creatinine, sex, and age as parameters. The creatinine assay has traceable calibration to isotope dilution-mass spectrometry. Refer to KDIGO guidelines for clinical interpretation. In patients with unstable renal function, e.g. those with acute kidney injury, the eGFR may not accurately reflect actual GFR. Performed By: #### 1 4979-9, 65010-8, 3255-04 #### [facility] CLIA [id number] [place] [address] [place] Glucose [Mass/Vol] 103 mg/dL High 74-99 [facility] Comment on above: Order Comment: Alex ortiz Type: BLOOD SPECIMEN [facility] Address: [address] [place] [address] Result Comment: The [place] Diabetes Association (ADA) provides guidance for cutoff values for fasting glucose and random glucose. The ADA defines fasting as no caloric intake for at least 8 hours. Fasting plasma glucose results between 100 to 125 mg/dL indicate increased risk for diabetes (prediabetes). Fasting plasma glucose results greater than or equal to 126 mg/dL meet the criteria for diagnosis of diabetes. In the absence of unequivocal hyperglycemia, results should be confirmed by repeat testing. In a patient with classic symptoms of hyperglycemia or hyperglycemic crisis, random plasma glucose results greater than or equal to 200 mg/dL meet the criteria for diagnosis of diabetes. Reference: Standards of Medical Care in Diabetes 2016, [place] [employer]. Diabetes Care. 2016.39(Suppl 1). Performed By: #### 1 4979-9, 38002-0, 3257 #### [facility] CLIA [id number] [place] [address] [place] Potassium [Moles/Vol] 4.8 mmol/L Normal 3.7-5.1 [facility] Comment on above: Order Comment: Speci men Type: BLOOD SPECIMEN [facility] Address: [address] [place] [address] Performed By: #### 1 4979-9, 50653-0, 7 #### [facility] CLIA [id number] [place] [address] [place] Sodium [Moles/Vol] 139 mmol/L Normal 136-144 [facility] Comment on above: Order Comment: Speci men Type: BLOOD SPECIMEN [facility] Address: [address] [place] [address] Performed By: #### 1 4979-9, 78755-8, 7 #### [facility] CLIA [id number] [place] [address] [place] Urea nitrogen [Mass/Vol] 18 mg/dL Normal 9-24 [facility] Comment on above: Order Comment: Speci men Type: BLOOD SPECIMEN [facility] Address: [address] [place] [address] Performed By: #### 1 4979-9, 31107-9, 7 #### [facility] CLIA [id number] [address] [place] [address] [place] Anion gap [Moles/Vol] 9 mmol/L Normal 9-18 [facility] Comment on above: Order Comment: Speci men Type: BLOOD SPECIMEN [facility] Address: [address] [place] [address] Performed By: #### 5 8410-2 #### [facility] CLIA [id number] [address] [place] [address] [place] Calcium [Mass/Vol] 7.9 mg/dL Low 8.5-10.2 [facility] Comment on above: Order Comment: Speci men Type: BLOOD SPECIMEN [facility] Address: [address] [place] [address] Performed By: #### 5 8410-2 #### [facility] CLIA [id number] [address] [place] [address] [place] Chloride [Moles/Vol] 103 mmol/L Normal 97-105 [facility] Comment on above: Order Comment: Speci men Type: BLOOD SPECIMEN [facility] Address: [address] [place] [address] Performed By: #### 5 8410-2 #### [facility] CLIA [id number] [address] [place] [address] [place] CO2 [Moles/Vol] 27 mmol/L Normal 22-30 [facility] Comment on above: Order Comment: Speci men Type: BLOOD SPECIMEN [facility] Address: [address] [place] [address] Performed By: #### 5 8410-2 #### [facility] CLIA [id number] [address] [place] [address] [place] Creatinine [Mass/Vol] 0.99 mg/dL Normal 0.73-1.22 [facility] Comment on above: Order Comment: Speci men Type: BLOOD SPECIMEN [facility] Address: [address] [place] [address] Performed By: #### 5 8410-2 #### [facility] CLIA [id number] [address] [place] [address] [place] Creatinine and Glomerular filtration rate.predicted panel (S/P/Bld) 80 mL/min/1.73m??? Normal >=60 [facility] Comment on above: Order Comment: Speci men Type: BLOOD SPECIMEN [facility] Address: [address] [place] [address] Result Comment: Jonelle mated Glomerular Filtration Rate (eGFR) is calculated using the 2020 CKD-EPI creatinine equation. This equation utilizes serum creatinine, sex, and age as parameters. The creatinine assay has traceable calibration to isotope dilution-mass spectrometry. Refer to KDIGO guidelines for clinical interpretation. In patients with unstable renal function, e.g. those with acute kidney injury, the eGFR may not accurately reflect actual GFR. Performed By: #### 5 8410-2 #### [facility] CLIA [id number] [address] [place] [address] [place] Glucose [Mass/Vol] 103 mg/dL High 74-99 [facility] Comment on above: Order Comment: Alex ortiz Type: BLOOD SPECIMEN Ordering Facility: [facility] Address: [address] [place] [address] Result Comment: The [place] Diabetes Association (ADA) provides guidance for cutoff values for fasting glucose and random glucose. The ADA defines fasting as no caloric intake for at least 8 hours. Fasting plasma glucose results between 100 to 125 mg/dL indicate increased risk for diabetes (prediabetes). Fasting plasma glucose results greater than or equal to 126 mg/dL meet the criteria for diagnosis of diabetes. In the absence of unequivocal hyperglycemia, results should be confirmed by repeat testing. In a patient with classic symptoms of hyperglycemia or hyperglycemic crisis, random plasma glucose results greater than or equal to 200 mg/dL meet the criteria for diagnosis of diabetes. Reference: Standards of Medical Care in Diabetes 2016, [place] [employer]. Diabetes Care. 2016.39(Suppl 1). Performed By: #### 5 8410-2 #### [facility] CLIA [id number] [address] [place] [address] [place] Potassium [Moles/Vol] 4.3 mmol/L Normal 3.7-5.1 [facility] Comment on above: Order Comment: Alex ortiz Type: BLOOD SPECIMEN Ordering Facility: [facility] Address: [address] [place] [address] Performed By: #### 5 8410-2 #### [facility] CLIA [id number] [place] [address] [place] Sodium [Moles/Vol] 139 mmol/L Normal 136-144 [facility] Comment on above: Order Comment: Speci men Type: BLOOD SPECIMEN Ordering Facility: [facility] Address: [address] [place] [address] Performed By: #### 5 8410-2 #### [facility] CLIA [id number] Urea nitrogen [Mass/Vol] 18 mg/dL Normal 9-24 [facility] Comment on above: Order Comment: Speci men Type: BLOOD SPECIMEN Ordering Facility: [facility] Address: [address] [place] [address] Performed By: #### 5 8410-2 #### [facility] CLIA [id number] CASE MANAGEMon 09-07-2023 CASE MANAGEM HNO ID: [id number] Author: Tash Shipman RN Service: ? Author Type: Registered Nurse Type: Care Mgt Progress Note Filed: 09/07/2023 1:25 PM Note Text: CARE MANAGEMENT PROGRESS NOTE SERVICE DATE: 09/07/2023 SERVICE TIME: 1:23pm LOS: 2 days Needs Prior to Discharge: OT/PT Evaluation;To Be Determined;[place] Study;Home Care Order [place] [facility] [place] Given: Yes Level of Care Discussed: Home Care Quality and resource use metrics shared with the patient that are relevant to the patient's goals of care and treatment preferences:: Yes Metrics: Functional Status;Potentially Preventable 30-day Post Discharge Readmission Rates Patient transferred to [facility], s/p AAA repair, NPO, NG, O2 2L, no home O2, Mid abdominal incision, lives alone, [place] area, Daughter: Rhonda [phone]; Friend: Isreal Flores [phone]. Referrals started to [facility] agencies, PT/OT to assess, dc needs TBD. Daughter to transport home at discharge. Weekend CM: Rasta Gonzalez RN [phone] SIGNATURE: Tash Shipman RN PATIENT NAME: Kris Cox DATE: September 07, 2023 TIME: 1:23 PM PAGER/CONTACT #: [phone] Normal [facility] CBC panel Auto (Bld)on 09-07 Erythrocyte distribution width (RBC) [Ratio] 13.6 % Normal 11.5-15.0 [facility] Comment on above: Order Comment: Speci men Type: BLOOD SPECIMEN Ordering Facility: [facility] Address: [address] [place] [address] Performed By: #### 5 8410-2 #### [facility] CLIA [id number] [address] [place] [address] [place] Hematocrit (Bld) [Volume fraction] 32.4 % Low 39.0-51.0 [facility] Comment on above: Order Comment: Speci men Type: BLOOD SPECIMEN Ordering Facility: [facility] Address: [address] [place] [address] Performed By: #### 5 8410-2 #### [facility] CLIA [id number] [address] [place] [address] [place] Hemoglobin (Bld) [Mass/Vol] 10.7 g/dL Low 13.0-17.0 [facility] Comment on above: Order Comment: Speci men Type: BLOOD SPECIMEN Ordering Facility: [facility] Address: [address] [place] [address] Performed By: #### 5 8410-2 #### [facility] CLIA [id number] [address] [place] [address] [place] MCH (RBC) [Entitic mass] 32.2 pg Normal 26.0-34.0 [facility] Comment on above: Order Comment: Speci men Type: BLOOD SPECIMEN Ordering Facility: [facility] Address: [address] [place] [address] Performed By: #### 5 8410-2 #### [facility] CLIA [id number] [address] [place] [address] [place] MCHC (RBC) [Mass/Vol] 33.0 g/dL Normal 30.5-36.0 [facility] Comment on above: Order Comment: Speci men Type: BLOOD SPECIMEN Ordering Facility: [facility] Address: [address] [place] [address] Performed By: #### 5 8410-2 #### [facility] CLIA [id number] [place] [address] [place] MCV (RBC) [Entitic vol] 97.6 fL Normal 80.0-100.0 [facility] Comment on above: Order Comment: Speci men Type: BLOOD SPECIMEN Ordering Facility: [facility] Address: [address] [place] [address] Performed By: #### 5 8410-2 #### [facility] CLIA [id number] [address] [place] [address] [place] Nucleated RBC (Bld) [#/Vol] 10*3/uL Normal <0.01 [facility] Comment on above: Order Comment: Speci men Type: BLOOD SPECIMEN Ordering Facility: [facility] Address: [address] [place] [address] Performed By: #### 5 8410-2 #### [facility] CLIA [id number] [address] [place] [address] [place] Platelet mean volume (Bld) [Entitic vol] 9.3 fL Normal 9.0-12.7 [facility] Comment on above: Order Comment: Speci men Type: BLOOD SPECIMEN Ordering Facility: [facility] Address: [address] [place] [address] Performed By: #### 5 8410-2 #### [facility] CLIA [id number] [address] [place] [address] [place] Platelets (Bld) [#/Vol] 128 10*3/uL Low 150-400 [facility] Comment on above: Order Comment: Speci men Type: BLOOD SPECIMEN Ordering Facility: [facility] Address: [address] [place] [address] Performed By: #### 5 8410-2 #### [facility] CLIA [id number] [address] [place] [address] [place] RBC (Bld) [#/Vol] 3.32 10*6/uL Low 4.20-6.00 [facility] Comment on above: Order Comment: Speci men Type: BLOOD SPECIMEN Ordering Facility: [facility] Address: [address] [place] [address] Performed By: #### 5 8410-2 #### [facility] CLIA [id number] [address] [place] [address] [place] WBC (Bld) [#/Vol] 13.73 10*3/uL High 3.70-11.00 [facility] Comment on above: Order Comment: Speci men Type: BLOOD SPECIMEN Ordering Facility: [facility] Address: [address] [place] [address] Performed By: #### 5 8410-2 #### [facility] CLIA [id number] [address] [place] [address] [place] Erythrocyte distribution width (RBC) [Ratio] 13.6 % Normal 11.5-15.0 [facility] Comment on above: Order Comment: Speci men Type: BLOOD SPECIMEN Ordering Facility: [facility] Address: [address] [place] [address] Performed By: #### 3 255-7, 42413-4, 56560-4 #### [facility] CLIA [id number] [address] [place] [address] [place] Hematocrit (Bld) [Volume fraction] 31.9 % Low 39.0-51.0 [facility] Comment on above: Order Comment: Speci men Type: BLOOD SPECIMEN Ordering Facility: [facility] Address: [address] [place] [address] Performed By: #### 3 255-7, 39926-1, 75804-6 #### [facility] CLIA [id number] [address] [place] [address] [place] Hemoglobin (Bld) [Mass/Vol] 10.5 g/dL Low 13.0-17.0 [facility] Comment on above: Order Comment: Speci men Type: BLOOD SPECIMEN Ordering Facility: [facility] Address: [address] [place] [address] Performed By: #### 3 255-7, 24454-8, 87906-2 #### [facility] CLIA [id number] [address] [place] [address] [place] MCH (RBC) [Entitic mass] 32.1 pg Normal 26.0-34.0 [facility] Comment on above: Order Comment: Speci men Type: BLOOD SPECIMEN Ordering Facility: [facility] Address: [address] [place] [address] Performed By: #### 3 255-7, 98359-2, #### [facility] CLIA [id number] [address] [place] [address] [place] MCHC (RBC) [Mass/Vol] 32.9 g/dL Normal 30.5-36.0 [facility] Comment on above: Order Comment: Speci men Type: BLOOD SPECIMEN Ordering Facility: [facility] Address: [address] [place] [address] Performed By: #### 3 255-7, 10624-4, #### [facility] CLIA [id number] [address] [place] [address] [place] MCV (RBC) [Entitic vol] 97.6 fL Normal 80.0-100.0 [facility] Comment on above: Order Comment: Speci men Type: BLOOD SPECIMEN Ordering Facility: [facility] Address: [address] [place] [address] Performed By: #### 3 255-7, 29078-2, #### [facility] CLIA [id number] [address] [place] [address] [place] Nucleated RBC (Bld) [#/Vol] 10*3/uL Normal <0.01 [facility] Comment on above: Order Comment: Speci men Type: BLOOD SPECIMEN Ordering Facility: [facility] Address: [address] [place] [address] Performed By: #### 3 255-7, 96046-3, 22522-6 #### [facility] CLIA [id number] [address] [place] [address] [place] Platelet mean volume (Bld) [Entitic vol] 9.1 fL Normal 9.0-12.7 [facility] Comment on above: Order Comment: Speci men Type: BLOOD SPECIMEN Ordering Facility: [facility] Address: [address] [place] [address] Performed By: #### 3 255-7, 31843-9, 97960-3 #### [facility] CLIA [id number] [address] [place], [place] [address] [place] Platelets (Bld) [#/Vol] 119 10*3/uL Low 150-400 [facility] Comment on above: Order Comment: Speci men Type: BLOOD SPECIMEN Ordering Facility: [facility] Address: [address] [place] [address] Performed By: #### 3 255-7, 04744-7, 99026-4 #### [facility] CLIA [id number] [address] [place] [address] [place] RBC (Bld) [#/Vol] 3.27 10*6/uL Low 4.20-6.00 [facility] Comment on above: Order Comment: Speci men Type: BLOOD SPECIMEN Ordering Facility: [facility] Address: [address] [place] [address] Performed By: #### 3 255-7, 09902-0, 68005-7 #### [facility] CLIA [id number] [address] [place] [address] [place] WBC (Bld) [#/Vol] 12.63 10*3/uL High 3.70-11.00 [facility] Comment on above: Order Comment: Speci men Type: BLOOD SPECIMEN Ordering Facility: [facility] Address: [address] [place] [address] Performed By: #### 3 255-7, 97770-0, 54485-9 #### [facility] CLIA [id number] [address] [place] [address] [place] Erythrocyte distribution width (RBC) [Ratio] 13.5 % Normal 11.5-15.0 [facility] Comment on above: Order Comment: Speci men Type: BLOOD SPECIMEN Ordering Facility: [facility] Address: [address] [place] [address] Performed By: #### 5 8410-2 #### [facility] CLIA [id number] [address] [place] [address] [place] [facility] [place] Hematocrit (Bld) [Volume fraction] 30.9 % Low 39.0-51.0 [facility] Comment on above: Order Comment: Speci men Type: BLOOD SPECIMEN Ordering Facility: [facility] Address: [address] [place] [address] Performed By: #### 5 8410-2 #### [facility] CLIA [id number] [address] [place] [address] [place] Hemoglobin (Bld) [Mass/Vol] 10.1 g/dL Low 13.0-17.0 [facility] Comment on above: Order Comment: Speci men Type: BLOOD SPECIMEN Ordering Facility: [facility] Address: [address] [place] [address] Performed By: #### 5 8410-2 #### [facility] CLIA [id number] [address] [place] [address] [place] MCH (RBC) [Entitic mass] 31.4 pg Normal 26.0-34.0 [facility] Comment on above: Order Comment: Speci men Type: BLOOD SPECIMEN Ordering Facility: [facility] Address: [address] [place] [address] Performed By: #### 5 8410-2 #### [facility] CLIA [id number] [address] [place] [address] [place] MCHC (RBC) [Mass/Vol] 32.7 g/dL Normal 30.5-36.0 [facility] Comment on above: Order Comment: Speci men Type: BLOOD SPECIMEN Ordering Facility: [facility] Address: [address] [place] [address] Performed By: #### 5 8410-2 #### [facility] CLIA [id number] [address] [place] [address] [place] MCV (RBC) [Entitic vol] 96.0 fL Normal 80.0-100.0 [facility] Comment on above: Order Comment: Speci men Type: BLOOD SPECIMEN Ordering Facility: [facility] Address: [address] [place] [address] Performed By: #### 5 8410-2 #### [facility] CLIA [id number] [address] [place] [address] [place] Nucleated RBC (Bld) [#/Vol] 10*3/uL Normal <0.01 [facility] Comment on above: Order Comment: Speci men Type: BLOOD SPECIMEN Ordering Facility: [facility] Address: [address] [place] [address] Performed By: #### 5 8410-2 #### [facility] CLIA [id number] [address] [place] [address] [place] Platelet mean volume (Bld) [Entitic vol] 9.5 fL Normal 9.0-12.7 [facility] Comment on above: Order Comment: Speci men Type: BLOOD SPECIMEN Ordering Facility: [facility] Address: [address] [place] [address] Performed By: #### 5 8410-2 #### [facility] CLIA [id number] [address] [place] [address] [place] Platelets (Bld) [#/Vol] 126 10*3/uL Low 150-400 [facility] Comment on above: Order Comment: Speci men Type: BLOOD SPECIMEN Ordering Facility: [facility] Address: [address] [place] [address] Performed By: #### 5 8410-2 #### [facility] CLIA [id number] [address] [place] [address] [place] RBC (Bld) [#/Vol] 3.22 10*6/uL Low 4.20-6.00 [facility] Comment on above: Order Comment: Speci men Type: BLOOD SPECIMEN Ordering Facility: [facility] Address: [address] [place] [address] Performed By: #### 5 8410-2 #### [facility] CLIA [id number] [address] [place] [address] [place] WBC (Bld) [#/Vol] 12.08 10*3/uL High 3.70-11.00 [facility] Comment on above: Order Comment: Speci men Type: BLOOD SPECIMEN Ordering Facility: [facility] Address: [address] [place] [address] Performed By: #### 5 8410-2 #### [facility] [id number] [address] [place] [address] [place] CONSULT PROGon 09-07-2023 CONSULT PROG HNO ID: [id number] Author: Siri Bonilla APRN.PROFILE STITCHING MACHINE OPERATOR Service: Pain Management Author Type: Nurse Practitioner Type: Consult Progress Note Filed: 09/07/2023 1:23 PM Note Text: APMS - EPIDURAL PROGRESS NOTE SERVICE DATE: September 07, 2023 SERVICE TIME: 9:06 AM PRIMARY SERVICE: Vascular ASSESSMENT : Kris Cox is a 73 year old male with pmhx: duodenal stricture, HTN, HLD, and AAA who is POD# 2, S/P Open AAA repair with T9-10 Epidural placed to aid in post op pain control. This morning, Mr. Cox is OOB to chair, he reports abdominal pain/incision moderate and back pain (lower) which is chronic in nature. Epidural site without signs or symptoms of infection, no erythema, tenderness, drainage, or warmth. He is NPO, NGT in place. PLAN/Recs: Changed Bupi 0.0625%/Fent at 01/07// epidural analgesia to promote comfort, mobility, and pulmonary toilet and to avoid hypotension. Continue Acetaminophen 650 mg PO Q 6 h Continue Flector to lower back BID Continue Fentanyl 25 mcg IV Q 2 h hr PRN BTP Bowel regimen per primary team Encourage OOB and IS as tolerated The plan was discussed in detail with patient +/- family, bedside RN, APMS staff and primary service, who expressed agreement, understanding and comfort with the plan. Thank you for including us in his care. Please call us with any questions or concerns. APMS will continue to follow. SUBJECTIVE Interval HPI: Kris Cox is a 73 year old male who is POD# 2, S/P Open AAA repair with T9-10 Epidural placed to aid in post op pain control. Epidural turned back on at 9am Pain at surgical site? Yes, abd Condition of surgical site: incision c/d/i Other locations of pain? Yes. Location: lower back Pain score at rest: 1 Pain score with movement (cough, deep breathe, ambulation, etc): 3 Able to cough/deep breathe adequately?:Yes Has patient been out of bed in a chair? yes Has patient been ambulating?: not yet Is the patient tolerating Physical Therapy?: OOB to chair Character: aching Duration: intermittent Radiation: Yes - lower back Relieved: Yes - Epidural bolus Is patient satisfied with pain control: Yes with epidural Overnight Events: None Overnight Pain Interventions: no Diet: NPO OBJECTIVE PERTINENT ROS: ALLERGIES No Known Allergies Information retrieved from Allergy section. Is the patient intubated and sedated? No. Numbness?: No Weakness?: No Nausea?: No Vomitting?: No Pruritis?: No Back pain?: No Headache?: No Sedation?: No Confusion/Delirium?: No Other: none Epidural Location: Thoracic Epidural catheter placed: Day of surgery MEDICATIONS: Epidural Medications and MARKETING INFORMATION COORDINATOR Settings Bupivacaine 0.1% + Fentanyl 2 mcg/mL Basal rate: 6 mL/hr. Patient Demand Bolus: 4 mL. Lockout interval: 15 minutes. Patient received 0 doses in the last 1 hours. (Epidural was off) Additional medication(s) given: See below Anticoagulation therapy: none Last Dose given: NA Current Facility-Administered Medications Medication Dose Route Frequency magnesium sulfate 1 g in D5W 100 mL 1 g INTRAVENOUS PRN magnesium sulfate iv piggyback in sterile water 2 g 50 mL 2 g INTRAVENOUS PRN pantoprazole 40 mg injection (PROTONIX) 40 mg INTRAVENOUS BID AC (0600/1600) metoprolol 5 mg injection (LOPRESSOR) 5 mg INTRAVENOUS q 6 HR NaCl 0.9% iv flush bag 20 mL INTRAVENOUS PRN ondansetron (PF) 4 mg injection (ZOFRAN) 4 mg INTRAVENOUS q 6 H PRN albuterol 2.5 mg /3 mL (0.083 %) 2.5 mg (PROVENTIL) 2.5 mg INHALATION q 6 H PRN fentaNYL 50 mcg/mL 25 mcg injection (SUBLIMAZE) 25 mcg INTRAVENOUS q 2 H PRN labetalol 10 mg injection syringe (NORMODYNE) 10 mg INTRAVENOUS q 2 H PRN hydrALAZINE 10 mg injection (APRESOLINE) 10 mg INTRAVENOUS q 1 H PRN diclofenac 1.3 % 1 Patch (FLECTOR) 1 Patch TRANSDERMAL BID And diclofenac - REMOVE PATCH OTHER BID And diclofenac - VERIFY PATCH OTHER q 8 H NaCl 0.9% iv infusion 5-30 mL/hr INTRAVENOUS CONTINUOUS bupivacaine 0.0625%-fentaNYL (PF) 2 mcg/mL epidural in NaCl 0.9% 250 mL EPIDURAL CONTINUOUS aspirin 81 mg chewable tab(s) 81 mg ORAL DAILY heparin 5,000 Units injection 5,000 Units SUBCUTANEOUS q 12 H PHYSICAL EXAM: Patient Vitals for the past 8 hrs: BP Temp Temp src Pulse Resp SpO2 Weight 09/07/23 1000 93/56 -- -- 74 27 96 % -- 09/07/23 0900 100/53 -- -- 80 25 98 % -- 09/07/23 0900 100/53 -- -- 83 25 98 % -- 09/07/23 0818 100/50 -- -- 77 24 98 % -- 09/07/23 0800 84/51 36.7 ?C (98.1 ?F) Oral 85 27 98 % -- 09/07/23 0700 95/54 -- -- 82 22 94 % -- 09/07/23 0600 124/67 -- -- 96 17 94 % -- 09/07/23 0500 133/60 -- -- 83 23 94 % -- 09/07/23 0400 124/65 36.8 ?C (98.2 ?F) Oral 95 20 92 % 82.8 kg (182 lb 8.7 oz) Intake/Output Summary (Last 24 hours) at 09/07/2023 1156 Last data filed at 09/07/2023 0900 Gross per 24 hour Intake 5578 ml Output 2200 ml Net 3378 ml Information retrieved from nursing flowsheet. Affect: awake, aler (more content not included)... Normal [facility] Fibrinogen PPP-mCncon 2022 Fibrinogen Coag (PPP) [Mass/Vol] 579 mg/dL High 200-400 [facility] Comment on above: Order Comment: Speci men Type: BLOOD SPECIMENOrdering Facility: [facility] Address: [address] [place], [place] [address] [address] Performed By: #### 3 255-7, 25869-0, 57407-6 ####[facility] [id number] [address] [place] Fibrinogen Coag (PPP) [Mass/Vol] 465 mg/dL High 200-400 [facility] Comment on above: Order Comment: Speci men Type: BLOOD SPECIMEN Ordering Facility: [facility] Address: [address] [place] [address] Performed By: #### 1 4979-9, 03633-1, 3255-7 #### [facility] CLIA [id number] [address] [place] [address] [place] Fibrinogen Coag (PPP) [Mass/Vol] 432 mg/dL High 200-400 [facility] Comment on above: Order Comment: Speci men Type: BLOOD SPECIMENOrdering Facility: [facility] Address: [address] [place] [address] Performed By: #### 3 255-7, 92215-5, 72070-4 ####[facility] [id number] [place] [address] [place] Lactate (Bld) [Moles/Vol]on 09-07-2023 Lactate [Moles/Vol] 1.8 mmol/L Normal 0.5-2.2 [facility] Comment on above: Order Comment: Speci men Type: BLOOD SPECIMEN Ordering Facility: [facility] Address: [address] [place] [address] Performed By: #### 1 4979-9, 36244-9, 32557 #### [facility] CLIA [id number] [address] [place] [address] [place] Lactate [Moles/Vol] 2.5 mmol/L High 0.5-2.2 [facility] Comment on above: Order Comment: Speci men Type: BLOOD SPECIMEN Ordering Facility: [facility] Address: [address] [place] [address] Performed By: #### 1 4979-9, 04532-0, 3255-7 #### [facility] CLIA [id number] [address] [place] [address] [place] Magnesium SerPl-mCncon 09-07 Magnesium [Mass/Vol] 2.1 mg/dL Normal 1.7-2.3 [facility] Comment on above: Order Comment: Speci men Type: BLOOD SPECIMEN Ordering Facility: [facility] Address: [address] [place] [address] Performed By: #### 1 4979-9, 67034-9, 3255-7 #### [facility] [id number] [address] [place] [address] [place] NURSING PROGon 09-07-2023 NURSING PROG HNO ID: [id number] Author: Anthony Loya RN Service: ? Author Type: Registered Nurse Type: Nursing Progress Note Filed: 09/07/2023 7:24 PM Note Text: 1207: Pt received to floor ([id number]) via wheelchair, accompanied by SICU staff. Pt alert and oriented x 3 and cooperative. Denies any SOB and no noted distress. Pt assisted into the bed with use of walker. Lungs clear with diminished bases. No noted cough. Pulse oxing well on 2L. Abdomen distended with hypoactive, faint BSP x 4 quads. Midline incision LANA with glue intact and well approximated. Pt given splint and instructed on use. IPCs placed to bilateral lower legs. Natarajan draining clear, joe urine. Epidural dressing intact and infusing as ordered. REmains NPO with NG to LIS -- draining green bile. Will continue as ordered. 1830: Pt given Fentanyl 25mcg for c/o lower back soreness / achiness, that he states is a chronic problem. BP elevated due to pain. Assisted into the chair with use of walker. States he feels better in the chair. Natarajan drained 1200 cc of urine. Monitor showing pt in SR 80s. Able to rest in the chair. KRYSTLE at 2mm and + doppled pulses bilateral lower legs. Will continue as ordered. 1900: BP 140/64 and pt states he feels much better. Medicated with Metoprolol 5mg IV as ordered and pt assisted back to bed. LIS suction maintained to NG with no output (only some bile brown liquid in the tubing). Normal [facility] NURSING PROG HNO ID: [id number] Author: Kayla Schneider, ELVIS Service: Nursing Author Type: Registered Nurse Type: Nursing Progress Note Filed: 09/07/2023 8:23 AM Note Text: [address] Beach and Siri WYLIE notified. Dr. Beach at bedside. On phone with Siri WYLIE. Per Siri WYLIE, stop epidural gtt for 30 mins. She will be at bedside in 30 mins to reassess and will change rate at that time. Normal [facility] PT panel Coag (PPP)on 2022 INR Coag (PPP) [Relative time] {INR} Low 0.9-1.3 [facility] Comment on above: Order Comment: Alex ortiz Type: BLOOD SPECIMEN Ordering Facility: [facility] Address: [place] [address] Result Comment: Twila min K Antagonist (VKA) Therapeutic Range: INR 2 to 3 (Target INR of 2.5) Note: For patients treated with VKA drugs, such as warfarin, the [employer] 2012 Guideline recommends a therapeutic INR range of 2 to 3 (target INR of 2.5). This recommendation includes high-risk patients with antiphospholipid syndrome with previous arterial or venous thromboembolism, current-generation mechanical or bioprosthetic aortic heart valve replacement. Note: Patients with mechanical aortic valve replacement and additional risk factors for thromboembolic events (atrial fibrillation, previous thromboembolism, LV dysfunction, hypercoagulable conditions) or an older generation mechanical AVR (i.e., ball in-Cage) or any mechanical MVR should have a INR therapeutic range of 2.5 to 3.5 (target INR of 3). Laquita GH, et al. Chest 2012, 141:7S-47S Rikki RA, et al. [facility] 2017, 70: 252-289 Performed By: #### 3 255-7, 46699-1, 35407-9 #### [facility] CLIA [id number] [address] [place], [place] [address] [place] PT Coag (PPP) [Time] 10.3 s Normal 9.7-13.0 [facility] Comment on above: Order Comment: Alex ortiz Type: BLOOD SPECIMEN Ordering Facility: [facility] Address: [place] [address] Performed By: #### 3 255-7, 25356-3, 44430-2 #### [facility] CLIA [id number] [place], [place] [address] [place] INR Coag (PPP) [Relative time] 0.9 {INR} Normal 0.9-1.3 [facility] Comment on above: Order Comment: Alex ortiz Type: BLOOD SPECIMEN Ordering Facility: [facility] Address: [address] [place] [address] Result Comment: Twila min K Antagonist (VKA) Therapeutic Range: INR 2 to 3 (Target INR of 2.5) Note: For patients treated with VKA drugs, such as warfarin, the [employer] 2012 Guideline recommends a therapeutic INR range of 2 to 3 (target INR of 2.5). This recommendation includes high-risk patients with antiphospholipid syndrome with previous arterial or venous thromboembolism, current-generation mechanical or bioprosthetic aortic heart valve replacement. Note: Patients with mechanical aortic valve replacement and additional risk factors for thromboembolic events (atrial fibrillation, previous thromboembolism, LV dysfunction, hypercoagulable conditions) or an older generation mechanical AVR (i.e., ball in-Cage) or any mechanical MVR should have a INR therapeutic range of 2.5 to 3.5 (target INR of 3). Laquita GH, et al. Chest 2012, 141:7S-47S Rikki RA, et al. [facility] 2017, 70: 252-289 Performed By: #### 1 4979-9, 61686-1, 3255-7 #### [facility] CLIA [id number] [address] [place] [address] [place] PT Coag (PPP) [Time] 10.6 s Normal 9.7-13.0 [facility] Comment on above: Order Comment: Alex ortiz Type: BLOOD SPECIMEN Ordering Facility: [facility] Address: [address] [place] [address] Performed By: #### 1 4979-9, 82207-7, 3255-7 #### [facility] CLIA [id number] [place], [place] [address] [place] INR Coag (PPP) [Relative time] 1.0 {INR} Normal 0.9-1.3 [facility] Comment on above: Order Comment: Alex ortiz Type: BLOOD SPECIMENOrdering Facility: [facility] Address: [address] [place] [address] Result Comment: Twila min K Antagonist (VKA) Therapeutic Range: INR 2 to 3 (Target INR of 2.5) Note: For patients treated with VKA drugs, such as warfarin, the [employer] [employer] 2012 Guideline recommends a therapeutic INR range of 2 to 3 (target INR of 2.5). This recommendation includes high-risk patients with antiphospholipid syndrome with previous arterial or venous thromboembolism, current-generation mechanical or bioprosthetic aortic heart valve replacement. Note: Patients with mechanical aortic valve replacement and additional risk factors for thromboembolic events (atrial fibrillation, previous thromboembolism, LV dysfunction, hypercoagulable conditions) or an older generation mechanical AVR (i.e., ball in-Cage) or any mechanical MVR should have a INR therapeutic range of 2.5 to 3.5 (target INR of 3). Laquita GH, et al. Chest 2012, 141:7S-47S Rikki RA, et al. [facility] 2017, 70: 252-289 Performed By: #### 3 255-7, 79877-7, 32123-1 ####[facility] [id number] [place] [address] [place] PT Coag (PPP) [Time] 10.7 s Normal 9.7-13.0 [facility] Comment on above: Order Comment: Speci men Type: BLOOD SPECIMENOrdering Facility: [facility] Address: [place] [address] Performed By: #### 3 255-7, 83784-3, 08806-9 ####[facility] [id number] [place] [address] [place] Phosphate SerPl-mCncon 09-07 Phosphate [Mass/Vol] 3.3 mg/dL Normal 2.7-4.8 [facility] Comment on above: Order Comment: Speci men Type: BLOOD SPECIMEN Ordering Facility: [facility] Address: [place] [address] Performed By: #### 1 4979-9, 00852-9, 3255-7 #### [facility] CLIA [id number] [place] [address] [place] aPTT PPPon 09-07-2023 aPTT Coag (PPP) [Time] 25.8 s Normal 23.0-32.4 [facility] Comment on above: Order Comment: Speci men Type: BLOOD SPECIMENOrdering Facility: [facility] Address: [address] [place] [address] Performed By: #### 3 255-7, 34814-5, 25920-9 ####[facility] [id number] [place] [id number] [facility] aPTT Coag (PPP) [Time] 26.4 s Normal 23.0-32.4 [facility] Comment on above: Order Comment: Speci men Type: BLOOD SPECIMEN Ordering Facility: [facility] Address: [address] [place] [address] Performed By: #### 1 4979-9, 18216-1, 3255-7 #### [facility] CLIA [id number] aPTT Coag (PPP) [Time] 25.0 s Normal 23.0-32.4 [facility] Comment on above: Order Comment: Speci men Type: BLOOD SPECIMENOrdering Facility: [facility] Address: [address] [place] [address] Performed By: #### 3 255-7, 05032-1, 10817-0 ####[facility] [id number] [place] [id number] [facility] ALLIED HEALTHon 09-06-2023 ALLIED HEALTH HNO ID: [id number] Author: Lawrence Luz Health Physics Technician Service: Spiritual Care Author Type: Health Physics Technician Type: Allied Health Filed: 09/06/2023 1:03 PM Note Text: SPIRITUALCARE Spiritual Care Visit- Brief Note Name: Kris Cox Date: September 06, 2023 Notes: While engaging in spiritual care rounds on the SICU unit, I made a visit with the patient and introduced spiritual care services. I provided spiritual presence and bucolic support through empathetic care/listening and through offer of prayers for the patient according to patient's stevie tradition and based on Sacred text. Patient was very grateful. I shared middle school librarian availability. Health Physics Technician Signature: Chaplain Shyam To contact the [facility] Department: Please call [phone] or Page the On-Call Health Physics Technician at pager [phone]. Thank you for the opportunity to be of service This is an electronically created document. IF PRINTED, PLEASE DO NOT REMOVE FROM THE CHART OR MODIFY PRINTED COPY. Normal [facility] ANES POSTPROC EVALon 023 ANES POSTPROC EVAL HNO ID: [id number] Author: Livan Castellon MD Service: Anesthesiology Author Type: Anesthesiologist Type: Anesthesia Postprocedure Evaluation Filed: 09/06/2023 1:50 AM Note Text: POST ANESTHESIA EVALUATION NOTE : 1950 Procedure Summary Date: 09/05/23 Room / Location: [place] [address] / [place] Anesthesia Start: 749 Anesthesia Stop: 1856 Procedure: REPAIR ANEURYSM AORTIC ABDOMINAL (Abdomen) Diagnosis: Infrarenal abdominal aortic aneurysm (AAA) without rupture (HCC) (Infrarenal abdominal aortic aneurysm (AAA) without rupture (HCC) [I71.43]) Surgeons: Naif Graves MD Responsible Provider: Livan Castellon MD Anesthesia Type: general ASA Status: 4 Anesthesia Type: general Airway Type: ETT Last Vitals Vitals Value Taken Time BP 148/86 09/06/23 0130 Temp 36.6 ?C (97.9 ?F) 09/06/23 0000 Pulse 64 09/06/23 0149 Resp 20 09/06/23 0149 SpO2 96 % 09/06/23 0136 Vitals shown include unvalidated device data. Post Anesthesia Patient Status Patient Evaluation: PACU. PACU/ICU Patient Condition: stable. Anticipated Disposition: ICU planned admission. Neurological Status: sedated. Pulmonary Status: on mechanical ventilation (invasive ventilation) Airway Control: intubated on mechanical ventilation. Cardiovascular Status: stable. Pain Management: clinically adequate Postoperative Hydration: acceptable. Intraoperative Events: no significant anesthesia events Recommendation: continue current plan of care. Anesthesia Observations No Documentation SIGNATURE: Livan Castellon MD PATIENT NAME: Kris Cox DATE: September 06, 2023 TIME: 1:50 AM CSN: [id number] Normal [facility] ARTERIAL BLOOD GASESon 09-06 Base excess Calc (Bld) [Moles/Vol] 3 mmol/L High 0-2 [facility] Comment on above: Order Comment: Speci men Type: ARTERIAL BLOOD SPECIMENOrdering Facility: [facility] Address: [address] [place] [address] Performed By: #### A LLBG ####[facility] [id number] [place] [id number] [facility] Body temperature 98.6 [degF] Normal [facility] Comment on above: Order Comment: Speci men Type: ARTERIAL BLOOD SPECIMENOrdering Facility: [facility] Address: [address] [place] [address] Performed By: #### A LLBG ####[facility] [id number] [address] [place] Calcium.ionized (Bld) [Mass/Vol] 1.11 mmol/L Normal 1.08-1.30 [facility] Comment on above: Order Comment: Speci men Type: ARTERIAL BLOOD SPECIMENOrdering Facility: [facility] Address: [address] [place] [address] Performed By: #### A LLBG ####[facility] [id number] [address] OF [facility] Calcium.ionized adjusted to pH 7.4 (BldA) [Moles/Vol] 1.13 mmol/L Normal 1.08-1.30 [facility] Comment on above: Order Comment: Speci men Type: ARTERIAL BLOOD SPECIMENOrdering Facility: [facility] Address: [address] [place] [address] Performed By: #### A LLBG ####[facility] [id number] [address] [place] Carboxyhemoglobin (BldA) [Mass fraction] 1.7 % Normal 0.0-2.0 [facility] Comment on above: Order Comment: Speci men Type: ARTERIAL BLOOD SPECIMENOrdering Facility: [facility] Address: [address] [place] [address] Result Comment: Carb oxyhemoglobin Reference Range for Smokers: 2.0-8.0% Performed By: #### A LLBG ####[facility] [id number] [place] [address] [place] Chloride [Moles/Vol] 108 mmol/L High 97-105 [facility] Comment on above: Order Comment: Speci men Type: ARTERIAL BLOOD SPECIMENOrdering Facility: [facility] Address: [address] [place] [address] Performed By: #### A LLBG ####[facility] [id number] [place] [address] [place] CO2 (Bld) [Partial pressure] 41 mm Hg Normal 36-46 [facility] Comment on above: Order Comment: Speci men Type: ARTERIAL BLOOD SPECIMENOrdering Facility: [facility] Address: [address] [place] [address] Performed By: #### A LLBG ####[facility] [id number] [place] [address] [place] Glucose [Mass/Vol] 138 mg/dL High 60-105 [facility] Comment on above: Order Comment: Speci men Type: ARTERIAL BLOOD SPECIMENOrdering Facility: [facility] Address: [address] [place] [address] Performed By: #### A LLBG ####[facility] [id number] [place] [address] [place] HCO3 (Bld) [Moles/Vol] 27 mmol/L High 22-26 [facility] Comment on above: Order Comment: Speci men Type: ARTERIAL BLOOD SPECIMENOrdering Facility: [facility] Address: [address] [place] [address] Performed By: #### A LLBG ####[facility] [id number] [place] [address] [place] Hematocrit (Bld) [Volume fraction] 34.7 % Low 39.0-51.0 [facility] Comment on above: Order Comment: Speci men Type: ARTERIAL BLOOD SPECIMENOrdering Facility: [facility] Address: [address], [place] [address] Performed By: #### A LLBG ####[facility] [id number] [place] [address] [place] Hemoglobin (Bld) [Mass/Vol] 11.3 g/dL Low 13.0-17.0 [facility] Comment on above: Order Comment: Speci men Type: ARTERIAL BLOOD SPECIMENOrdering Facility: [facility] Address: [address] [place] [address] Performed By: #### A LLBG ####[facility] [id number] [place] [address] [place] Lactate [Moles/Vol] 3.0 mmol/L High 0.5-2.2 [facility] Comment on above: Order Comment: Speci men Type: ARTERIAL BLOOD SPECIMENOrdering Facility: [facility] Address: [address] [place] [address] Performed By: #### A LLBG ####[facility] [id number] [place] [address] [place] LITERS 3 Liters/min [facility] Comment on above: Order Comment: Speci men Type: ARTERIAL BLOOD SPECIMENOrdering Facility: [facility] Address: [address] [place] [address] Performed By: #### A LLBG ####[facility] [id number] [address] [place] [place] Methemoglobin (Bld) [Mass fraction] 0.6 % Normal 0.0-1.5 [facility] Comment on above: Order Comment: Speci men Type: ARTERIAL BLOOD SPECIMENOrdering Facility: [facility] Address: [address] [place] [address] Performed By: #### A LLBG ####[facility] [id number] [address] [place] [place] O2 THERAPY NC = Nasal Cannula Normal [facility] Comment on above: Order Comment: Speci men Type: ARTERIAL BLOOD SPECIMENOrdering Facility: [facility] Address: [address] [place] [address] Performed By: #### A LLBG ####[facility] [id number] [place] [address] [place] Oxygen (Bld) [Partial pressure] 81 mm Hg Low 85-95 [facility] Comment on above: Order Comment: Speci men Type: ARTERIAL BLOOD SPECIMENOrdering Facility: [facility] Address: [address] [place] [address] Performed By: #### A LLBG ####[facility] [id number] [place] [address] [place] Oxyhemoglobin (BldA) [Mass fraction] 94 % Low 95-98 [facility] Comment on above: Order Comment: Speci men Type: ARTERIAL BLOOD SPECIMENOrdering Facility: [facility] Address: [address] [place] [address] Performed By: #### A LLBG ####[facility] [id number] [place] [address] [place] pH (Bld) 7.43 [pH] Normal 7.35-7.45 [facility] Comment on above: Order Comment: Speci men Type: ARTERIAL BLOOD SPECIMENOrdering Facility: [facility] Address: [address] [place] [address] Performed By: #### A LLBG ####[facility] [id number] [place] [address] [place] Potassium [Moles/Vol] 3.8 mmol/L Normal 3.5-5.0 [facility] Comment on above: Order Comment: Speci men Type: ARTERIAL BLOOD SPECIMENOrdering Facility: [facility] Address: [address] [place] [address] Performed By: #### A LLBG ####[facility] [id number] [place] [id number] [place] Sodium [Moles/Vol] 138 mmol/L Normal 136-144 [facility] Comment on above: Order Comment: Speci men Type: ARTERIAL BLOOD SPECIMENOrdering Facility: [facility] Address: [address] [place] [address] Performed By: #### A LLBG ####[facility] [id number] [place] [address] [place] Base excess Calc (Bld) [Moles/Vol] 3 mmol/L High 0-2 [facility] Comment on above: Order Comment: Speci men Type: BLOOD SPECIMEN Ordering Facility: [facility] Address: [address] [place] [address] Performed By: #### 1 4979-9, 43795-9, 3255-04 #### [facility] CLIA [id number] [place] [address] [place] Body temperature 98.6 [degF] Normal [facility] Comment on above: Order Comment: Speci men Type: BLOOD SPECIMEN Ordering Facility: [facility] Address: [address] [place] [address] Performed By: #### 1 4979-9, 61744-1, 3255-04 #### [facility] CLIA [id number] [address] [place] [address] [place] Calcium.ionized (Bld) [Mass/Vol] 1.18 mmol/L Normal 1.08-1.30 [facility] Comment on above: Order Comment: Speci men Type: BLOOD SPECIMEN Ordering Facility: [facility] Address: [address] [place] [address] Performed By: #### 1 4979-9, 31250-3, 3255-04 #### [facility] CLIA [id number] [address] [place] [address] [place] Calcium.ionized adjusted to pH 7.4 (BldA) [Moles/Vol] 1.21 mmol/L Normal 1.08-1.30 [facility] Comment on above: Order Comment: Speci men Type: BLOOD SPECIMEN Ordering Facility: [facility] Address: [address] [place] [address] Performed By: #### 1 4979-9, 32820-9, 3257 #### [facility] CLIA [id number] [place] [address] [place] Carboxyhemoglobin (BldA) [Mass fraction] 1.4 % Normal 0.0-2.0 [facility] Comment on above: Order Comment: Speci men Type: BLOOD SPECIMEN Ordering Facility: [facility] Address: [address] [place] [address] Result Comment: Carb oxyhemoglobin Reference Range for Smokers: 2.0-8.0% Performed By: #### 1 4979-9, 54614-0, 3255-04 #### [facility] CLIA [id number] [address] [place] [address] [place] Chloride [Moles/Vol] 108 mmol/L High 97-105 [facility] Comment on above: Order Comment: Speci men Type: BLOOD SPECIMEN Ordering Facility: [facility] Address: [address] [place] [address] Performed By: #### 1 4979-9, 36655-3, 3255-04 #### [facility] CLIA [id number] [address] [place] [address] [place] CO2 (Bld) [Partial pressure] 41 mm Hg Normal 36-46 [facility] Comment on above: Order Comment: Speci men Type: BLOOD SPECIMEN Ordering Facility: [facility] Address: [address] [place] [address] Performed By: #### 1 4979-9, 96814-8, 3255-04 #### [facility] CLIA [id number] [address] [place] [address] [place] FIO2 30 % Normal [facility] Comment on above: Order Comment: Speci men Type: BLOOD SPECIMEN Ordering Facility: [facility] Address: [address] [place] [address] Performed By: #### 1 4979-9, 35327-3, 7 #### [facility] CLIA [id number] [address] [place] [address] [place] Glucose [Mass/Vol] 146 mg/dL High 60-105 [facility] Comment on above: Order Comment: Speci men Type: BLOOD SPECIMEN Ordering Facility: [facility] Address: [address] [place] [address] Performed By: #### 1 4979-9, 52991-6, 7 #### [facility] CLIA [id number] [address] [place] [address] [place] HCO3 (Bld) [Moles/Vol] 27 mmol/L High 22-26 [facility] Comment on above: Order Comment: Speci men Type: BLOOD SPECIMEN Ordering Facility: [facility] Address: [address] [place] [address] Performed By: #### 1 4979-9, 97670-3, 3255-04 #### [facility] CLIA [id number] [address] [place] [address] [place] Hematocrit (Bld) [Volume fraction] 38.0 % Low 39.0-51.0 [facility] Comment on above: Order Comment: Speci men Type: BLOOD SPECIMEN Ordering Facility: [facility] Address: [address] [place] [address] Performed By: #### 1 4979-9, 31840-9, 3255-04 #### [facility] CLIA [id number] [address] [place] [address] [place] Hemoglobin (Bld) [Mass/Vol] 12.4 g/dL Low 13.0-17.0 [facility] Comment on above: Order Comment: Speci men Type: BLOOD SPECIMEN Ordering Facility: [facility] Address: [address] [place] [address] Performed By: #### 1 4979-9, 01458-0, 3255-04 #### [facility] CLIA [id number] [address] [place] [address] [place] INSPIRATORY PRESSURE SET (CMH2O) 5 cmH2O [facility] Comment on above: Order Comment: Speci men Type: BLOOD SPECIMEN Ordering Facility: [facility] Address: [address] [place] [address] Performed By: #### 1 4979-9, 39933-7, 3255-04 #### [facility] CLIA [id number] [address] [place] [address] [place] INVASIVE VENTILATOR MODE Pressure Support, CPAP (PC-CSVs) Normal [facility] Comment on above: Order Comment: Speci men Type: BLOOD SPECIMEN Ordering Facility: [facility] Address: [address] [place] [address] Performed By: #### 1 4979-9, 17834-9, 3257 #### [facility] CLIA [id number] [address] [place] [address] [place] Lactate [Moles/Vol] 2.1 mmol/L Normal 0.5-2.2 [facility] Comment on above: Order Comment: Speci men Type: BLOOD SPECIMEN Ordering Facility: [facility] Address: [address] [place] [address] Performed By: #### 1 4979-9, 05088-0, 3257 #### [facility] CLIA [id number] [address] [place] [address] [place] Methemoglobin (Bld) [Mass fraction] 1.1 % Normal 0.0-1.5 [facility] Comment on above: Order Comment: Speci men Type: BLOOD SPECIMEN Ordering Facility: [facility] Address: [address] [place] [address] Performed By: #### 1 4979-9, 57395-7, 7 #### [facility] CLIA [id number] [address] [place] [address] [place] O2 THERAPY Ventilator Normal [facility] Comment on above: Order Comment: Speci men Type: BLOOD SPECIMEN Ordering Facility: [facility] Address: [address] [place] [address] Performed By: #### 1 4979-9, 85904-8, 3255-04 #### [facility] CLIA [id number] [address] [place] [address] [place] Oxygen (Bld) [Partial pressure] 86 mm Hg Normal 85-95 [facility] Comment on above: Order Comment: Speci men Type: BLOOD SPECIMEN Ordering Facility: [facility] Address: [address] [place] [address] Performed By: #### 1 4979-9, 54124-7, 325-7 #### [facility] CLIA [id number] [address] [place] [address] [place] Oxyhemoglobin (BldA) [Mass fraction] 94 % Low 95-98 [facility] Comment on above: Order Comment: Speci men Type: BLOOD SPECIMEN Ordering Facility: [facility] Address: [address] [place] [address] Performed By: #### 1 4979-9, 17482-0, 3255-04 #### [facility] CLIA [id number] [address] [place] [address] [place] PEEP/CPAP 8 cmH2O Normal [facility] Comment on above: Order Comment: Speci men Type: BLOOD SPECIMEN Ordering Facility: [facility] Address: [address] [place] [address] Performed By: #### 1 4979-9, 23638-5, 3255-04 #### [facility] CLIA [id number] [address] [place] [address] [place] pH (Bld) 7.44 [pH] Normal 7.35-7.45 [facility] Comment on above: Order Comment: Speci men Type: BLOOD SPECIMEN Ordering Facility: [facility] Address: [address] [place] [address] Performed By: #### 1 4979-9, 58145-9, 3255-04 #### [facility] CLIA [id number] [address] [place] [address] [place] PO2 / FIO2 RATIO 287 mmHg Low >300 [facility] Comment on above: Order Comment: Speci men Type: BLOOD SPECIMEN Ordering Facility: [facility] Address: [address] [place] [address] Performed By: #### 1 4979-9, 61644-0, 3255-04 #### [facility] CLIA [id number] [address] [place] [address] [place] Potassium [Moles/Vol] 4.0 mmol/L Normal 3.5-5.0 [facility] Comment on above: Order Comment: Speci men Type: BLOOD SPECIMEN Ordering Facility: [facility] Address: [address] [place] [address] Performed By: #### 1 4979-9, 53218-8, 3255-7 #### [facility] CLIA [id number] [address] [place] [address] [place] Sodium [Moles/Vol] 139 mmol/L Normal 136-144 [facility] Comment on above: Order Comment: Speci men Type: BLOOD SPECIMEN Ordering Facility: [facility] Address: [address] [place] [address] Performed By: #### 1 4979-9, 66130-0, 7 #### [facility] CLIA [id number] [address] [place] [address] [place] Base deficit (BldA) [Moles/Vol] mmol/L Normal -2-0 [facility] Comment on above: Order Comment: Speci men Type: ARTERIAL BLOOD SPECIMEN Ordering Facility: [facility] Address: [address] [place] [address] Performed By: #### A LLBG #### [facility] CLIA [id number] [address] [place] [address] [place] Body temperature 98.6 [degF] Normal [facility] Comment on above: Order Comment: Speci men Type: ARTERIAL BLOOD SPECIMEN Ordering Facility: [facility] Address: [address] [place] [address] Performed By: #### A LLBG #### [facility] CLIA [id number] [address] [place] [address] [place] Calcium.ionized (Bld) [Mass/Vol] 1.24 mmol/L Normal 1.08-1.30 [facility] Comment on above: Order Comment: Speci men Type: ARTERIAL BLOOD SPECIMEN Ordering Facility: [facility] Address: [address] [place] [address] Performed By: #### A LLBG #### [facility] CLIA [id number] [address] [place] [address] [place] Calcium.ionized adjusted to pH 7.4 (BldA) [Moles/Vol] 1.24 mmol/L Normal 1.08-1.30 [facility] Comment on above: Order Comment: Speci men Type: ARTERIAL BLOOD SPECIMEN Ordering Facility: [facility] Address: [address] [place] [address] Performed By: #### A LLBG #### [facility] CLIA [id number] [address] [place] [address] [place] Carboxyhemoglobin (BldA) [Mass fraction] 1.6 % Normal 0.0-2.0 [facility] Comment on above: Order Comment: Speci men Type: ARTERIAL BLOOD SPECIMEN Ordering Facility: [facility] Address: [address] [place] [address] Result Comment: Carb oxyhemoglobin Reference Range for Smokers: 2.0-8.0% Performed By: #### A LLBG #### [facility] CLIA [id number] [address] [place] [address] [place] Chloride [Moles/Vol] 108 mmol/L High 97-105 [facility] Comment on above: Order Comment: Speci men Type: ARTERIAL BLOOD SPECIMEN Ordering Facility: [facility] Address: [address] [place] [address] Performed By: #### A LLBG #### [facility] CLIA [id number] [address] [place] [address] [place] CO2 (Bld) [Partial pressure] 39 mm Hg Normal 36-46 [facility] Comment on above: Order Comment: Speci men Type: ARTERIAL BLOOD SPECIMEN Ordering Facility: [facility] Address: [address] [place] [address] Performed By: #### A LLBG #### [facility] CLIA [id number] [address] [place] [address] [place] FIO2 30 % Normal [facility] Comment on above: Order Comment: Speci men Type: ARTERIAL BLOOD SPECIMEN Ordering Facility: [facility] Address: [address] [place] [address] Performed By: #### A LLBG #### [facility] CLIA [id number] [address] [place] [address] [place] Glucose [Mass/Vol] 150 mg/dL High 60-105 [facility] Comment on above: Order Comment: Speci men Type: ARTERIAL BLOOD SPECIMEN Ordering Facility: [facility] Address: [address] [place] [address] Performed By: #### A LLBG #### [facility] CLIA [id number] [address] [place] [address] [place] HCO3 (Bld) [Moles/Vol] 24 mmol/L Normal 22-26 [facility] Comment on above: Order Comment: Speci men Type: ARTERIAL BLOOD SPECIMEN Ordering Facility: [facility] Address: [address] [place] [address] Performed By: #### A LLBG #### [facility] CLIA [id number] [address] [place] [address] [place] Hematocrit (Bld) [Volume fraction] 38.1 % Low 39.0-51.0 [facility] Comment on above: Order Comment: Speci men Type: ARTERIAL BLOOD SPECIMEN Ordering Facility: [facility] Address: [address] [place] [address] Performed By: #### A LLBG #### [facility] CLIA [id number] [address] [place] [address] [place] Hemoglobin (Bld) [Mass/Vol] 12.4 g/dL Low 13.0-17.0 [facility] Comment on above: Order Comment: Speci men Type: ARTERIAL BLOOD SPECIMEN Ordering Facility: [facility] Address: [address] [place] [address] Performed By: #### A LLBG #### [facility] CLIA [id number] [address] [place] [address] [place] INHALED TIDAL VOLUME (ML) 610 [facility] Comment on above: Order Comment: Speci men Type: ARTERIAL BLOOD SPECIMEN Ordering Facility: [facility] Address: [address] [place] [address] Performed By: #### A LLBG #### [facility] CLIA [id number] [address] [place] [address] [place] INSPIRATORY PRESSURE SET (CMH2O) 12 cmH2O [facility] Comment on above: Order Comment: Speci men Type: ARTERIAL BLOOD SPECIMEN Ordering Facility: [facility] Address: [address] [place] [address] Performed By: #### A LLBG #### [facility] CLIA [id number] [address] [place] [address] [place] INVASIVE VENTILATOR MODE Pressure A/C (PC-CMVs) Normal [facility] Comment on above: Order Comment: Speci men Type: ARTERIAL BLOOD SPECIMEN Ordering Facility: [facility] Address: [address] [place] [address] Performed By: #### A LLBG #### [facility] CLIA [id number] [address] [place] [address] [place] Lactate [Moles/Vol] 3.8 mmol/L High 0.5-2.2 [facility] Comment on above: Order Comment: Speci men Type: ARTERIAL BLOOD SPECIMEN Ordering Facility: [facility] Address: [address] [place] [address] Performed By: #### A LLBG #### [facility] IA [id number] [address] [place] [address] [place] Methemoglobin (Bld) [Mass fraction] 1.2 % Normal 0.0-1.5 [facility] Comment on above: Order Comment: Speci men Type: ARTERIAL BLOOD SPECIMEN Ordering Facility: [facility] Address: [address] [place] [address] Performed By: #### A LLBG #### [facility] IA [id number] [address] [place] [address] [place] MINUTE VENTILATION 9 L/min Normal [facility] Comment on above: Order Comment: Speci men Type: ARTERIAL BLOOD SPECIMEN Ordering Facility: [facility] Address: [address] [place] [address] Performed By: #### A LLBG #### [facility] CLIA [id number] [address] [place] [address] [place] O2 THERAPY Ventilator Normal [facility] Comment on above: Order Comment: Speci men Type: ARTERIAL BLOOD SPECIMEN Ordering Facility: [facility] Address: [address] [place] [address] Performed By: #### A LLBG #### [facility] CLIA [id number] [address] [place] [address] [place] Oxygen (Bld) [Partial pressure] 70 mm Hg Low 85-95 [facility] Comment on above: Order Comment: Speci men Type: ARTERIAL BLOOD SPECIMEN Ordering Facility: [facility] Address: [address] [place] [address] Performed By: #### A LLBG #### [facility] CLIA [id number] [address] [place] [address] [place] Oxyhemoglobin (BldA) [Mass fraction] 92 % Low 95-98 [facility] Comment on above: Order Comment: Speci men Type: ARTERIAL BLOOD SPECIMEN Ordering Facility: [facility] Address: [address] [place] [address] Performed By: #### A LLBG #### [facility] CLIA [id number] [address] [place] [address] [place] PEEP/CPAP 5 cmH2O Normal [facility] Comment on above: Order Comment: Speci men Type: ARTERIAL BLOOD SPECIMEN Ordering Facility: [facility] Address: [address] [place] [address] Performed By: #### A LLBG #### [facility] CLIA [id number] [address] [place] [address] [place] pH (Bld) 7.40 [pH] Normal 7.35-7.45 [facility] Comment on above: Order Comment: Speci men Type: ARTERIAL BLOOD SPECIMEN Ordering Facility: [facility] Address: [address] [place] [address] Performed By: #### A LLBG #### [facility] CLIA [id number] [address] [place] [address] [place] PO2 / FIO2 RATIO 233 mmHg Low >300 [facility] Comment on above: Order Comment: Speci men Type: ARTERIAL BLOOD SPECIMEN Ordering Facility: [facility] Address: [address] [place] [address] Performed By: #### A LLBG #### [facility] CLIA [id number] [address] [place] [address] [place] Potassium [Moles/Vol] 4.3 mmol/L Normal 3.5-5.0 [facility] Comment on above: Order Comment: Speci men Type: ARTERIAL BLOOD SPECIMEN Ordering Facility: [facility] Address: [address] [place] [address] Performed By: #### A LLBG #### [facility] CLIA [id number] [address] [place] [address] [place] SET VENTILATOR RESPIRATORY RATE (BPM) 15 BPM Normal [facility] Comment on above: Order Comment: Speci men Type: ARTERIAL BLOOD SPECIMEN Ordering Facility: [facility] Address: [address] [place] [address] Performed By: #### A LLBG #### [facility] CLIA [id number] [address] [place] [address] [place] Sodium [Moles/Vol] 139 mmol/L Normal 136-144 [facility] Comment on above: Order Comment: Speci men Type: ARTERIAL BLOOD SPECIMEN Ordering Facility: [facility] Address: [address] [place] [address] Performed By: #### A LLBG #### [facility] CLIA [id number] [address] [place] [address] [place] Basic metabolic 2000 panelon 09-06-2023 Anion gap [Moles/Vol] 10 mmol/L Normal 9-18 [facility] Comment on above: Order Comment: Speci men Type: BLOOD SPECIMEN Ordering Facility: [facility] Address: [address] [place] [address] Performed By: #### 5 8410-2 #### [facility] CLIA [id number] [address] [place] [address] [place] Calcium [Mass/Vol] 7.9 mg/dL Low 8.5-10.2 [facility] Comment on above: Order Comment: Speci men Type: BLOOD SPECIMEN Ordering Facility: [facility] Address: [address] [place] [address] Performed By: #### 5 8410-2 #### [facility] CLIA [id number] [address] [place] [address] [place] Chloride [Moles/Vol] 103 mmol/L Normal 97-105 [facility] Comment on above: Order Comment: Speci men Type: BLOOD SPECIMEN Ordering Facility: [facility] Address: [address] [place] [address] Performed By: #### 5 8410-2 #### [facility] CLIA [id number] [address] [place] [address] [place] CO2 [Moles/Vol] 26 mmol/L Normal 22-30 [facility] Comment on above: Order Comment: Speci men Type: BLOOD SPECIMEN Ordering Facility: [facility] Address: [address] [place] [address] Performed By: #### 5 8410-2 #### [facility] CLIA [id number] [address] [place] [address] [place] Creatinine [Mass/Vol] 0.97 mg/dL Normal 0.73-1.22 [facility] Comment on above: Order Comment: Speci men Type: BLOOD SPECIMEN Ordering Facility: [facility] Address: [address] [place] [address] Performed By: #### 5 8410-2 #### [facility] CLIA [id number] [address] [place] [address] [place] Creatinine and Glomerular filtration rate.predicted panel (S/P/Bld) 82 mL/min/1.73m??? Normal >=60 [facility] Comment on above: Order Comment: Speci men Type: BLOOD SPECIMEN Ordering Facility: [facility] Address: [address] [place] [address] Result Comment: Jonelle mated Glomerular Filtration Rate (eGFR) is calculated using the 2020 CKD-EPI creatinine equation. This equation utilizes serum creatinine, sex, and age as parameters. The creatinine assay has traceable calibration to isotope dilution-mass spectrometry. Refer to KDIGO guidelines for clinical interpretation. In patients with unstable renal function, e.g. those with acute kidney injury, the eGFR may not accurately reflect actual GFR. Performed By: #### 5 8410-2 #### [facility] CLIA [id number] [place] [address] [place] Glucose [Mass/Vol] 143 mg/dL High 74-99 [facility] Comment on above: Order Comment: Speci men Type: BLOOD SPECIMEN Ordering Facility: [facility] Address: [address] [place] [address] Result Comment: The [place] [employer] (ADA) provides guidance for cutoff values for fasting glucose and random glucose. The ADA defines fasting as no caloric intake for at least 8 hours. Fasting plasma glucose results between 100 to 125 mg/dL indicate increased risk for diabetes (prediabetes). Fasting plasma glucose results greater than or equal to 126 mg/dL meet the criteria for diagnosis of diabetes. In the absence of unequivocal hyperglycemia, results should be confirmed by repeat testing. In a patient with classic symptoms of hyperglycemia or hyperglycemic crisis, random plasma glucose results greater than or equal to 200 mg/dL meet the criteria for diagnosis of diabetes. Reference: Standards of Medical Care in Diabetes 2016, [place] [employer]. Diabetes Care. 2016.39(Suppl 1). Performed By: #### 5 8410-2 #### [facility] CLIA [id number] [address] [place] [address] [place] Potassium [Moles/Vol] 3.9 mmol/L Normal 3.7-5.1 [facility] Comment on above: Order Comment: Speci men Type: BLOOD SPECIMEN Ordering Facility: [facility] Address: [address] [place] [address] Performed By: #### 5 8410-2 #### [facility] CLIA [id number] [address] [place] [address] [place] Sodium [Moles/Vol] 139 mmol/L Normal 136-144 [facility] Comment on above: Order Comment: Speci men Type: BLOOD SPECIMEN Ordering Facility: [facility] Address: [address] [place] [address] Performed By: #### 5 8410-2 #### [facility] CLIA [id number] [address] [place] [address] [place] Urea nitrogen [Mass/Vol] 18 mg/dL Normal 9-24 [facility] Comment on above: Order Comment: Speci men Type: BLOOD SPECIMEN Ordering Facility: [facility] Address: [address] [place] [address] Performed By: #### 5 8410-2 #### [facility] CLIA [id number] [address] [place] [address] [place] Anion gap [Moles/Vol] 14 mmol/L Normal 9-18 [facility] Comment on above: Order Comment: Speci men Type: BLOOD SPECIMEN Ordering Facility: [facility] Address: [address] [place] [address] Performed By: #### 5 8410-2 #### [facility] CLIA [id number] [address] [place] [address] [place] Calcium [Mass/Vol] 8.7 mg/dL Normal 8.5-10.2 [facility] Comment on above: Order Comment: Speci men Type: BLOOD SPECIMEN Ordering Facility: [facility] Address: [address] [place] [address] Performed By: #### 5 8410-2 #### [facility] CLIA [id number] [address] [place] [address] [place] Chloride [Moles/Vol] 105 mmol/L Normal 97-105 [facility] Comment on above: Order Comment: Speci men Type: BLOOD SPECIMEN Ordering Facility: [facility] Address: [address] [place] [address] Performed By: #### 5 8410-2 #### [facility] CLIA [id number] [address] [place] [address] [place] CO2 [Moles/Vol] 23 mmol/L Normal 22-30 [facility] Comment on above: Order Comment: Speci men Type: BLOOD SPECIMEN Ordering Facility: [facility] Address: [address] [place] [address] Performed By: #### 5 8410-2 #### [facility] CLIA [id number] [address] [place] [address] [place] Creatinine [Mass/Vol] 0.95 mg/dL Normal 0.73-1.22 [facility] Comment on above: Order Comment: Speci men Type: BLOOD SPECIMEN Ordering Facility: [facility] Address: [address] [place] [address] Performed By: #### 5 8410-2 #### [facility] CLIA [id number] [address] [place], [place] [address] [place] Creatinine and Glomerular filtration rate.predicted panel (S/P/Bld) 84 mL/min/1.73m??? Normal >=60 [facility] Comment on above: Order Comment: Alex ortiz Type: BLOOD SPECIMEN Ordering Facility: [facility] Address: [address] [place] [address] Result Comment: Jonelle mated Glomerular Filtration Rate (eGFR) is calculated using the 2020 CKD-EPI creatinine equation. This equation utilizes serum creatinine, sex, and age as parameters. The creatinine assay has traceable calibration to isotope dilution-mass spectrometry. Refer to KDIGO guidelines for clinical interpretation. In patients with unstable renal function, e.g. those with acute kidney injury, the eGFR may not accurately reflect actual GFR. Performed By: #### 5 8410-2 #### [facility] CLIA [id number] [place] [address] [place] Glucose [Mass/Vol] 139 mg/dL High 74-99 [facility] Comment on above: Order Comment: Alex ortiz Type: BLOOD SPECIMEN Ordering Facility: [facility] Address: [address] [place] [address] Result Comment: The [place] Diabetes [employer] (ADA) provides guidance for cutoff values for fasting glucose and random glucose. The ADA defines fasting as no caloric intake for at least 8 hours. Fasting plasma glucose results between 100 to 125 mg/dL indicate increased risk for diabetes (prediabetes). Fasting plasma glucose results greater than or equal to 126 mg/dL meet the criteria for diagnosis of diabetes. In the absence of unequivocal hyperglycemia, results should be confirmed by repeat testing. In a patient with classic symptoms of hyperglycemia or hyperglycemic crisis, random plasma glucose results greater than or equal to 200 mg/dL meet the criteria for diagnosis of diabetes. Reference: Standards of Medical Care in Diabetes 2016, [place] [employer]. Diabetes Care. 2016.39(Suppl 1). Performed By: #### 5 8410-2 #### [facility] CLIA [id number] [address] [place] [address] [place] Potassium [Moles/Vol] 4.3 mmol/L Normal 3.7-5.1 [facility] Comment on above: Order Comment: Alex ortiz Type: BLOOD SPECIMEN Ordering Facility: [facility] Address: [address] [place] [address] Performed By: #### 5 8410-2 #### [facility] CLIA [id number] [address] [place] [address] [place] Sodium [Moles/Vol] 142 mmol/L Normal 136-144 [facility] Comment on above: Order Comment: Speci men Type: BLOOD SPECIMEN Ordering Facility: [facility] Address: [address] [place] [address] Performed By: #### 5 8410-2 #### [facility] CLIA [id number] [address] [place] [address] [place] Urea nitrogen [Mass/Vol] 19 mg/dL Normal 9-24 [facility] Comment on above: Order Comment: Speci men Type: BLOOD SPECIMEN Ordering Facility: [facility] Address: [address] [place] [address] Performed By: #### 5 8410-2 #### [facility] CLIA [id number] [address] [place] [address] [place] Anion gap [Moles/Vol] 10 mmol/L Normal 9-18 [facility] Comment on above: Order Comment: Speci men Type: BLOOD SPECIMEN Ordering Facility: [facility] Address: [address] [place] [address] Performed By: #### 1 4979-9, 83113-5, 3255-7 #### [facility] CLIA [id number] [address] [place] [address] [place] Calcium [Mass/Vol] 8.8 mg/dL Normal 8.5-10.2 [facility] Comment on above: Order Comment: Speci men Type: BLOOD SPECIMEN Ordering Facility: [facility] Address: [address] [place] [address] Performed By: #### 1 4979-9, 49862-1, 3255-7 #### [facility] CLIA [id number] [address] [place] [address] [place] Chloride [Moles/Vol] 104 mmol/L Normal 97-105 [facility] Comment on above: Order Comment: Speci men Type: BLOOD SPECIMEN Ordering Facility: [facility] Address: [address] [place] [address] Performed By: #### 1 4979-9, 37920-7, 3255-04 #### [facility] CLIA [id number] [address] [place] [address] [place] CO2 [Moles/Vol] 25 mmol/L Normal 22-30 [facility] Comment on above: Order Comment: Speci men Type: BLOOD SPECIMEN Ordering Facility: [facility] Address: [address] [place] [address] Performed By: #### 1 4979-9, 06605-5, 3255-04 #### [facility] CLIA [id number] [address] [place] [address] [place] Creatinine [Mass/Vol] 0.96 mg/dL Normal 0.73-1.22 [facility] Comment on above: Order Comment: Speci men Type: BLOOD SPECIMEN Ordering Facility: [facility] Address: [address] [place] [address] Performed By: #### 1 4979-9, 82091-6, 3255-04 #### [facility] CLIA [id number] [address] [place] [address] [place] Creatinine and Glomerular filtration rate.predicted panel (S/P/Bld) 83 mL/min/1.73m??? Normal >=60 [facility] Comment on above: Order Comment: Speci men Type: BLOOD SPECIMEN Ordering Facility: [facility] Address: [address] [place] [address] Result Comment: Jonelle mated Glomerular Filtration Rate (eGFR) is calculated using the 2020 CKD-EPI creatinine equation. This equation utilizes serum creatinine, sex, and age as parameters. The creatinine assay has traceable calibration to isotope dilution-mass spectrometry. Refer to KDIGO guidelines for clinical interpretation. In patients with unstable renal function, e.g. those with acute kidney injury, the eGFR may not accurately reflect actual GFR. Performed By: #### 1 4979-9, 53436-2, 3257 #### [facility] CLIA [id number] [place] [address] [place] Glucose [Mass/Vol] 153 mg/dL High 74-99 [facility] Comment on above: Order Comment: Alex ortiz Type: BLOOD SPECIMEN Ordering Facility: [facility] Address: [address] [place] [address] Result Comment: The [place] Diabetes [employer] (ADA) provides guidance for cutoff values for fasting glucose and random glucose. The ADA defines fasting as no caloric intake for at least 8 hours. Fasting plasma glucose results between 100 to 125 mg/dL indicate increased risk for diabetes (prediabetes). Fasting plasma glucose results greater than or equal to 126 mg/dL meet the criteria for diagnosis of diabetes. In the absence of unequivocal hyperglycemia, results should be confirmed by repeat testing. In a patient with classic symptoms of hyperglycemia or hyperglycemic crisis, random plasma glucose results greater than or equal to 200 mg/dL meet the criteria for diagnosis of diabetes. Reference: Standards of Medical Care in Diabetes 2016, [place] [employer]. Diabetes Care. 2016.39(Suppl 1). Performed By: #### 1 4979-9, 74388-6, 3257 #### [facility] CLIA [id number] [address] [place] [address] [place] Potassium [Moles/Vol] 4.4 mmol/L Normal 3.7-5.1 [facility] Comment on above: Order Comment: Alex ortiz Type: BLOOD SPECIMEN Ordering Facility: [facility] Address: [address] [place] [address] Performed By: #### 1 4979-9, 03784-7, 3257 #### [facility] CLIA [id number] [address] [place] [address] [place] Sodium [Moles/Vol] 139 mmol/L Normal 136-144 [facility] Comment on above: Order Comment: Alex ortiz Type: BLOOD SPECIMEN Ordering Facility: [facility] Address: [address] [place] [address] Performed By: #### 1 4979-9, 19217-0, 3255-7 #### [facility] CLIA [id number] [address] [place] [address] [place] Urea nitrogen [Mass/Vol] 19 mg/dL Normal 9-24 [facility] Comment on above: Order Comment: Speci men Type: BLOOD SPECIMEN Ordering Facility: [facility] Address: [address] [place] [address] Performed By: #### 1 4979-9, 62228-6, 3255-7 #### [facility] CLIA [id number] [address] [place] [address] [place] CBC panel Auto (Bld)on 09-06 Erythrocyte distribution width (RBC) [Ratio] 13.4 % Normal 11.5-15.0 [facility] Comment on above: Order Comment: Speci men Type: BLOOD SPECIMEN Ordering Facility: [facility] Address: [address] [place] [address] Performed By: #### 3 255-7, 49864-2, 88585-3 #### [facility] CLIA [id number] [address] [place] [address] [place] Hematocrit (Bld) [Volume fraction] 32.6 % Low 39.0-51.0 [facility] Comment on above: Order Comment: Speci men Type: BLOOD SPECIMEN Ordering Facility: [facility] Address: [address] [place] [address] Performed By: #### 3 255-7, 37233-9, 81437-1 #### [facility] CLIA [id number] [address] [place] [address] [place] Hemoglobin (Bld) [Mass/Vol] 11.2 g/dL Low 13.0-17.0 [facility] Comment on above: Order Comment: Speci men Type: BLOOD SPECIMEN Ordering Facility: [facility] Address: [address] [place] [address] Performed By: #### 3 255-7, 07864-1, 35669-5 #### [facility] CLIA [id number] [address] [place] [address] [place] MCH (RBC) [Entitic mass] 32.1 pg Normal 26.0-34.0 [facility] Comment on above: Order Comment: Speci men Type: BLOOD SPECIMEN Ordering Facility: [facility] Address: [address] [place] [address] Performed By: #### 3 255-7, 93403-4, 63184-9 #### [facility] CLIA [id number] [address] [place] [address] [place] MCHC (RBC) [Mass/Vol] 34.4 g/dL Normal 30.5-36.0 [facility] Comment on above: Order Comment: Speci men Type: BLOOD SPECIMEN Ordering Facility: [facility] Address: [address] [place] [address] Performed By: #### 3 255-7, 71467-1, 04906-4 #### [facility] CLIA [id number] [address] [place] [address] [place] MCV (RBC) [Entitic vol] 93.4 fL Normal 80.0-100.0 [facility] Comment on above: Order Comment: Speci men Type: BLOOD SPECIMEN Ordering Facility: [facility] Address: [address] [place] [address] Performed By: #### 3 255-7, 02035-3, 30647-3 #### [facility] CLIA [id number] [address] [place] [address] [place] Nucleated RBC (Bld) [#/Vol] 10*3/uL Normal <0.01 [facility] Comment on above: Order Comment: Speci men Type: BLOOD SPECIMEN Ordering Facility: [facility] Address: [address] [place] [address] Performed By: #### 3 255-7, 25468-6, 78461-9 #### [facility] CLIA [id number] [address] [place] [address] [place] Platelet mean volume (Bld) [Entitic vol] 8.9 fL Low 9.0-12.7 [facility] Comment on above: Order Comment: Speci men Type: BLOOD SPECIMEN Ordering Facility: [facility] Address: [address] [place] [address] Performed By: #### 3 255-7, 84845-8, 40482-0 #### [facility] CLIA [id number] [address] [place] [address] [place] Platelets (Bld) [#/Vol] 126 10*3/uL Low 150-400 [facility] Comment on above: Order Comment: Speci men Type: BLOOD SPECIMEN Ordering Facility: [facility] Address: [address] [place] [address] Performed By: #### 3 255-7, 18462-9, 93899-1 #### [facility] CLIA [id number] [address] [place] [address] [place] RBC (Bld) [#/Vol] 3.49 10*6/uL Low 4.20-6.00 [facility] Comment on above: Order Comment: Speci men Type: BLOOD SPECIMEN Ordering Facility: [facility] Address: [address] [place] [address] Performed By: #### 3 255-7, 57516-6, 65992-9 #### [facility] CLIA [id number] [address] [place] [address] [place] WBC (Bld) [#/Vol] 13.40 10*3/uL High 3.70-11.00 [facility] Comment on above: Order Comment: Speci men Type: BLOOD SPECIMEN Ordering Facility: [facility] Address: [address] [place] [address] Performed By: #### 3 255-7, 50419-1, 44632-4 #### [facility] CLIA [id number] [address] [place] [address] [place] Erythrocyte distribution width (RBC) [Ratio] 13.3 % Normal 11.5-15.0 [facility] Comment on above: Order Comment: Speci men Type: BLOOD SPECIMENOrdering Facility: [facility] Address: [address] [place] [address] Performed By: #### 5 8410-2 ####[facility] [id number] [place] [address] [place] Hematocrit (Bld) [Volume fraction] 35.3 % Low 39.0-51.0 [facility] Comment on above: Order Comment: Speci men Type: BLOOD SPECIMENOrdering Facility: [facility] Address: [address] [place] [address] Performed By: #### 5 8410-2 ####[facility] [id number] [place] [address] [place] Hemoglobin (Bld) [Mass/Vol] 12.0 g/dL Low 13.0-17.0 [facility] Comment on above: Order Comment: Speci men Type: BLOOD SPECIMENOrdering Facility: [facility] Address: [address] [place] [address] Performed By: #### 5 8410-2 ####[facility] [id number] [address] MCH (RBC) [Entitic mass] 31.5 pg Normal 26.0-34.0 [facility] Comment on above: Order Comment: Speci men Type: BLOOD SPECIMENOrdering Facility: [facility] Address: [address] [place] [address] Performed By: #### 5 8410-2 ####[facility] [id number] [address] [place] MCHC (RBC) [Mass/Vol] 34.0 g/dL Normal 30.5-36.0 [facility] Comment on above: Order Comment: Speci men Type: BLOOD SPECIMENOrdering Facility: [facility] Address: [address] [place] [address] Performed By: #### 5 8410-2 ####[facility] [id number] [address] [place] MCV (RBC) [Entitic vol] 92.7 fL Normal 80.0-100.0 [facility] Comment on above: Order Comment: Speci men Type: BLOOD SPECIMENOrdering Facility: [facility] Address: [address] [place] [address] Performed By: #### 5 8410-2 ####[facility]IA [id number] [address] [place] Nucleated RBC (Bld) [#/Vol] 10*3/uL Normal <0.01 [facility] Comment on above: Order Comment: Speci men Type: BLOOD SPECIMENOrdering Facility: [facility] Address: [address] [place] [address] Performed By: #### 5 8410-2 ####[facility] [id number] [place] [address] [place] Platelet mean volume (Bld) [Entitic vol] 9.2 fL Normal 9.0-12.7 [facility] Comment on above: Order Comment: Speci men Type: BLOOD SPECIMENOrdering Facility: [facility] Address: [address] [place] [address] Performed By: #### 5 8410-2 ####[facility]IA [id number] [place] [address] [place] Platelets (Bld) [#/Vol] 98 10*3/uL Low 150-400 [facility] Comment on above: Order Comment: Speci men Type: BLOOD SPECIMENOrdering Facility: [facility] Address: [address] [place] [address] Result Comment: Resu lts checked and verified.No clot detected. Performed By: #### 5 8410-2 ####[facility] [id number] [place] [address] [place] RBC (Bld) [#/Vol] 3.81 10*6/uL Low 4.20-6.00 [facility] Comment on above: Order Comment: Speci men Type: BLOOD SPECIMENOrdering Facility: [facility] Address: [address] [place] [address] Performed By: #### 5 8410-2 ####[facility]ORYCLIA [id number] [place] [address] [place] WBC (Bld) [#/Vol] 10.82 10*3/uL Normal 3.70-11.00 [facility] Comment on above: Order Comment: Speci men Type: BLOOD SPECIMENOrdering Facility: [facility] Address: [address] [place] [address] Performed By: #### 5 8410-2 ####[facility] [id number] [place] [address] [place] Erythrocyte distribution width (RBC) [Ratio] 13.4 % Normal 11.5-15.0 [facility] Comment on above: Order Comment: Speci men Type: BLOOD SPECIMEN Ordering Facility: [facility] Address: [address] [place] [address] Performed By: #### 3 255-7, 46371-4, 00328-1 #### [facility] CLIA [id number] [address] [place] [address] [place] Hematocrit (Bld) [Volume fraction] 34.8 % Low 39.0-51.0 [facility] Comment on above: Order Comment: Speci men Type: BLOOD SPECIMEN Ordering Facility: [facility] Address: [address] [place] [address] Performed By: #### 3 255-7, 26677-5, 17361-9 #### [facility] CLIA [id number] [address] [place] [address] [place] Hemoglobin (Bld) [Mass/Vol] 12.1 g/dL Low 13.0-17.0 [facility] Comment on above: Order Comment: Speci men Type: BLOOD SPECIMEN Ordering Facility: [facility] Address: [address] [place] [address] Performed By: #### 3 255-7, 67536-4, 28496-1 #### [facility] CLIA [id number] [address] [place] [address] [place] MCH (RBC) [Entitic mass] 32.3 pg Normal 26.0-34.0 [facility] Comment on above: Order Comment: Speci men Type: BLOOD SPECIMEN Ordering Facility: [facility] Address: [address] [place] [address] Performed By: #### 3 255-7, 16457-3, 52514-5 #### [facility] CLIA [id number] [place] [address] [place] MCHC (RBC) [Mass/Vol] 34.8 g/dL Normal 30.5-36.0 [facility] Comment on above: Order Comment: Speci men Type: BLOOD SPECIMEN Ordering Facility: [facility] Address: [address] [place] [address] Performed By: #### 3 255-7, 46881-6, 06328-8 #### [facility] CLIA [id number] [address] [place] [address] [place] MCV (RBC) [Entitic vol] 92.8 fL Normal 80.0-100.0 [facility] Comment on above: Order Comment: Speci men Type: BLOOD SPECIMEN Ordering Facility: [facility] Address: [address] [place] [address] Performed By: #### 3 255-7, 10439-9, 44936-5 #### [facility] CLIA [id number] [address] [place] [address] [place] Nucleated RBC (Bld) [#/Vol] 10*3/uL Normal <0.01 [facility] Comment on above: Order Comment: Speci men Type: BLOOD SPECIMEN Ordering Facility: [facility] Address: [address] [place] [address] Performed By: #### 3 255-7, 78633-6, #### [facility] CLIA [id number] [address] [place] [address] [place] Platelet mean volume (Bld) [Entitic vol] 9.0 fL Normal 9.0-12.7 [facility] Comment on above: Order Comment: Speci men Type: BLOOD SPECIMEN Ordering Facility: [facility] Address: [address] [place] [address] Performed By: #### 3 255-7, 89856-0, 11245-2 #### [facility] CLIA [id number] [address] [place] [address] [place] Platelets (Bld) [#/Vol] 104 10*3/uL Low 150-400 [facility] Comment on above: Order Comment: Speci men Type: BLOOD SPECIMEN Ordering Facility: [facility] Address: [address] [place] [address] Performed By: #### 3 255-7, 24005-9, 22932-1 #### [facility] CLIA [id number] [place] [address] [place] RBC (Bld) [#/Vol] 3.75 10*6/uL Low 4.20-6.00 [facility] Comment on above: Order Comment: Speci men Type: BLOOD SPECIMEN Ordering Facility: [facility] Address: [address] [place] [address] Performed By: #### 3 255-7, 38806-5, 78914-6 #### [facility] CLIA [id number] [place] [address] [place] WBC (Bld) [#/Vol] 10.19 10*3/uL Normal 3.70-11.00 [facility] Comment on above: Order Comment: Speci men Type: BLOOD SPECIMEN Ordering Facility: [facility] Address: [address] [place] [address] Performed By: #### 3 255-7, 00718-8, 38109-2 #### [facility] CLIA [id number] [address] [place] [address] [place] CONSULT PROGon 09-06-2023 CONSULT PROG HNO ID: [id number] Author: Siri Bonilla APRN.PROFILE STITCHING MACHINE OPERATOR Service: Pain Management Author Type: Nurse Practitioner Type: Consult Progress Note Filed: 09/06/2023 1:40 PM Note Text: APMS - EPIDURAL PROGRESS NOTE SERVICE DATE: 09/06/2023 SERVICE TIME: 9:08 AM PRIMARY SERVICE: Vascular ASSESSMENT : Kris Cox is a 73 year old male with pmhx: duodenal stricture, HTN, HLD, and AAA who is POD# 1, S/P Open AAA repair with T9-10 Epidural placed to aid in post op pain control. This morning, Mr. Cox is resting in bed, he was extubated around 8 am, he is AAOX3. He reports abdominal pain/incision moderate and back pain (lower) which is chronic in nature. Epidural was turned off overnight. Epidural site without signs or symptoms of infection, no erythema, tenderness, drainage, or warmth. He is NPO, NGT in place. PLAN/Recs: Started back Bupi 0.1%/Fent at 6//30/2 epidural analgesia to promote comfort, mobility, and pulmonary toilet. Continue Acetaminophen 650 mg PO Q 6 h Ordered Flector to lower back BID Continue Fentanyl 25 mcg IV Q 2 h hr PRN BTP Bowel regimen per primary team Encourage OOB and IS as tolerated 1:39 PM ADDENDUM Epidural levels ~T5-T11 pain well controlled, hemodynamically stable The plan was discussed in detail with patient +/- family, bedside RN, APMS staff and primary service, who expressed agreement, understanding and comfort with the plan. Thank you for including us in his care. Please call us with any questions or concerns. APMS will continue to follow. SUBJECTIVE Interval HPI: Kris Cox is a 73 year old male who is POD# 1, S/P Open AAA repair with T9-10 Epidural placed to aid in post op pain control. Epidural turned back on at 9am Pain at surgical site? Yes, abd Condition of surgical site: incision c/d/i Other locations of pain? Yes. Location: lower back Pain score at rest: 7 Pain score with movement (cough, deep breathe, ambulation, etc): 8 Able to cough/deep breathe adequately?:Yes Has patient been out of bed in a chair? Not yet Has patient been ambulating?: not yet Is the patient tolerating Physical Therapy?: not yet Character: aching Duration: intermittent Radiation: Yes - lower back Relieved: Yes - Epidural bolus Is patient satisfied with pain control: Yes with epidural turned back on Overnight Events: None Overnight Pain Interventions: no Diet: NPO OBJECTIVE PERTINENT ROS: ALLERGIES No Known Allergies Information retrieved from Allergy section. Is the patient intubated and sedated? No. Numbness?: No Weakness?: No Nausea?: No Vomitting?: No Pruritis?: No Back pain?: No Headache?: No Sedation?: No Confusion/Delirium?: No Other: none Epidural Location: Thoracic Epidural catheter placed: Day of surgery MEDICATIONS: Epidural Medications and MARKETING INFORMATION COORDINATOR Settings Bupivacaine 0.1% + Fentanyl 2 mcg/mL Basal rate: 6 mL/hr. Patient Demand Bolus: 4 mL. Lockout interval: 15 minutes. Patient received 0 doses in the last 1 hours. (Epidural was off) Additional medication(s) given: See below Anticoagulation therapy: none Last Dose given: NA Current Facility-Administered Medications Medication Dose Route Frequency bupivacaine 0.1%-fentaNYL 2 mcg/mL epidural in NaCl 0.9% 300 mL EPIDURAL CONTINUOUS atorvastatin 20 mg tab(s) (LIPITOR) 20 mg ORAL AT BEDTIME Chlorhexidine Gluconate 0.12 % 15 mL (PERIDEX) 15 mL ORAL q 6 HR magnesium sulfate 1 g in D5W 100 mL 1 g INTRAVENOUS PRN magnesium sulfate iv piggyback in sterile water 2 g 50 mL 2 g INTRAVENOUS PRN pantoprazole 40 mg injection (PROTONIX) 40 mg INTRAVENOUS BID AC (0600/1600) metoprolol 5 mg injection (LOPRESSOR) 5 mg INTRAVENOUS q 6 HR PHENYLephrine 80 mg in D5W 250 mL (MONY-SYNEPHRINE) 25-300 mcg/min INTRAVENOUS CONTINUOUS NaCl 0.9% iv flush bag 20 mL INTRAVENOUS PRN ondansetron 4 mg tab(s) (ZOFRAN) 4 mg ORAL q 6 H PRN Or ondansetron (PF) 4 mg injection (ZOFRAN) 4 mg INTRAVENOUS q 6 H PRN acetaminophen 650 mg tab(s) (TYLENOL) 650 mg ORAL/FEEDING TUBE q 6 H albuterol 2.5 mg /3 mL (0.083 %) 2.5 mg (PROVENTIL) 2.5 mg INHALATION q 6 H PRN fentaNYL 50 mcg/mL 25 mcg injection (SUBLIMAZE) 25 mcg INTRAVENOUS q 2 H PRN NaCl 0.9% iv infusion 100 mL/hr INTRAVENOUS CONTINUOUS sodium phosphate 15 mmol in D5W 250 mL 15 mmol INTRAVENOUS ONCE labetalol 10 mg injection syringe (NORMODYNE) 10 mg INTRAVENOUS q 2 H PRN hydrALAZINE 10 mg injection (APRESOLINE) 10 mg INTRAVENOUS q 1 H PRN diclofenac 1.3 % 1 Patch (FLECTOR) 1 Patch TRANSDERMAL BID And diclofenac - REMOVE PATCH OTHER BID And diclofenac - VERIFY PATCH OTHER q 8 H PHYSICAL EXAM: Patient Vitals for the past 8 hrs: BP Temp Temp src Pulse Resp SpO2 Weight 09/06/23 0857 161/70 36.7 ?C (98.1 ?F) -- 86 14 -- -- 09/06/23 0828 173/75 -- -- 87 20 95 % -- 09/06/23 0800 168/69 36.6 ?C (97.9 ?F) Oral 81 16 97 % -- 09/06/23 0745 -- -- -- 95 17 98 % -- 09/06/23 0700 150/68 (more content not included)... Normal [facility] EKGon 09-06-2023 Electrocardiogram Ventricular Rate : 7 9 BPM Atrial Rate : 77 BPM P-R Interval : 166 ms QRS Duration : 92 ms Q-T Interval : 373 ms QTC Calculation(Bazett) : 428 ms Calculated P [place] : 86 degrees Calculated R [place] : 60 degrees Calculated T [place] : 47 degrees Sinus rhythm Minimal ST elevation, anterior leads Otherwise Normal ECG Confirmed by PEDRO JALLOH M.D. ([id number]) on 09/09/2023 6:23:16 AM NAME : KRIS COX PID : [id number] : 1950 Gender : Male Race : ORD : Procedure Date : Sep 06 2023 01:36:50 Edit Date : Sep 09 2023 06:23:18 Diagnosis: Sinus rhythm Minimal ST elevation, anterior leads Otherwise Normal ECG Confirmed by PEDRO JALLOH M.D. ([id number]) on 09/09/2023 6:23:16 AM Test Reason : Episode of anita Location : 400 : FVEKG [id number] Overread By : PEDRO JALLOH M.D. Edited By : PEDRO JALLOH M.D. Referred By : , Acquired by : , Normal [facility] Fibrinogen PPP-mCncon 2022 Fibrinogen Coag (PPP) [Mass/Vol] 423 mg/dL High 200-400 [facility] Comment on above: Order Comment: Speci men Type: BLOOD SPECIMENOrdering Facility: [facility] Address: [address] [place] [address] Performed By: #### 3 4528-0, 33080-4, 740-7 ####[facility] [id number] [address] STATES OF [facility] Fibrinogen Coag (PPP) [Mass/Vol] 367 mg/dL Normal [address] [place] [address] Comment on above: Order Comment: Speci men Type: BLOOD SPECIMEN Ordering Facility: [facility] Address: [address] [place] [address] Performed By: #### 1 4979-9, 47665-1, 3255-7 #### [facility] CLIA [id number] [address] [place] [address] [place] Fibrinogen Coag (PPP) [Mass/Vol] 311 mg/dL Normal 200-400 [facility] Comment on above: Order Comment: Speci men Type: BLOOD SPECIMEN Ordering Facility: [facility] Address: [address] [place] [address] Performed By: #### 1 4979-9, 03069-7, 3255-04 #### [facility] CLIA [id number] [address] [place] [address] [place] Lactate (Bld) [Moles/Vol]on 09-06-2023 Lactate [Moles/Vol] 3.0 mmol/L High 0.5-2.2 [facility] Comment on above: Order Comment: Speci men Type: BLOOD SPECIMEN Ordering Facility: [facility] Address: [address] [place] [address] Performed By: #### 1 4979-9, 35865-5, 3255-04 #### [facility] CLIA [id number] [address] [place] [address] [place] Lactate [Moles/Vol] 2.7 mmol/L High 0.5-2.2 [facility] Comment on above: Order Comment: Speci men Type: BLOOD SPECIMEN Ordering Facility: [facility] Address: [address] [place] [address] Performed By: #### 3 2693-4 #### [facility] CLIA [id number] [address] [place] [address] [place] Lactate [Moles/Vol] 3.3 mmol/L High 0.5-2.2 [facility] Comment on above: Order Comment: Speci men Type: BLOOD SPECIMEN Ordering Facility: [facility] Address: [address] [place] [address] Performed By: #### 1 4979-9, 67780-3, 3255-04 #### [facility] CLIA [id number] [address] [place] [address] [place] Magnesium SerPl-mCncon 09-06 Magnesium [Mass/Vol] 1.9 mg/dL Normal 1.7-2.3 [facility] Comment on above: Order Comment: Alex ortiz Type: BLOOD SPECIMEN Ordering Facility: [facility] Address: [place] [address] Performed By: #### 3 255-7, 51884-9, 18107-4 #### [facility] CLIA [id number] NURSING PROGon 09-06-2023 NURSING PROG HNO ID: [id number] Author: Carolina Cano, RN Service: Nursing Author Type: Registered Nurse Type: Nursing Progress Note Filed: 09/06/2023 2:06 AM Note Text: Event(s) / Intervention Note: PATIENT NAME: Kris Cox Patient Location: [place] [address] [address] Room: [place] [address] The patient was observed having the following problems: change in vital signs; HR in low 40s The time of the event occurred at: 0145. The following intervention(s) were initiated: Jaki Cantu NP notified, at bedside and epidural pump stopped. After the initiated interventions, the following observation(s) were made: patient appears improved, HR restored to 60s, anesthesia paged, regarding need to emergently stop epidural pump, awaiting response. 0205: Spoke to Dr. Clarke over the phone. Informed to turn off pump, anesthesia to look at and evaluate tomorrow. Pump remains turned off. Normal [facility] PT panel Coag (PPP)on 2022 INR Coag (PPP) [Relative time] 1.0 {INR} Normal 0.9-1.3 [facility] Comment on above: Order Comment: Alex ortiz Type: BLOOD SPECIMENOrdering Facility: [facility] Address: [place] [id number] Result Comment: Twila min K Antagonist (VKA) Therapeutic Range: INR 2 to 3 (Target INR of 2.5) Note: For patients treated with VKA drugs, such as warfarin, the [employer] [employer] 2012 Guideline recommends a therapeutic INR range of 2 to 3 (target INR of 2.5). This recommendation includes high-risk patients with antiphospholipid syndrome with previous arterial or venous thromboembolism, current-generation mechanical or bioprosthetic aortic heart valve replacement. Note: Patients with mechanical aortic valve replacement and additional risk factors for thromboembolic events (atrial fibrillation, previous thromboembolism, LV dysfunction, hypercoagulable conditions) or an older generation mechanical AVR (i.e., ball in-Cage) or any mechanical MVR should have a INR therapeutic range of 2.5 to 3.5 (target INR of 3). Laquita GH, et al. Chest 2012, 141:7S-47S Rikki RA, et al. [facility] 2017, 70: 252-289 Performed By: #### 3 4528-0, 72158-4, 3255-7 ####[facility]ORYCLIA [id number] [place] [id number] [place] PT Coag (PPP) [Time] 10.9 s Normal 9.7-13.0 [facility] Comment on above: Order Comment: Alex ortiz Type: BLOOD SPECIMENOrdering Facility: [facility] Address: [address] [place] [address] Performed By: #### 3 4528-0, 41526-8, 3255-7 ####[facility] [id number] [place] [id number] [place] INR Coag (PPP) [Relative time] 1.0 {INR} Normal 0.9-1.3 [facility] Comment on above: Order Comment: Alex ortiz Type: BLOOD SPECIMEN Ordering Facility: [facility] Address: [address] [place] [address] Result Comment: Twila min K Antagonist (VKA) Therapeutic Range: INR 2 to 3 (Target INR of 2.5) Note: For patients treated with VKA drugs, such as warfarin, the [employer] 2012 Guideline recommends a therapeutic INR range of 2 to 3 (target INR of 2.5). This recommendation includes high-risk patients with antiphospholipid syndrome with previous arterial or venous thromboembolism, current-generation mechanical or bioprosthetic aortic heart valve replacement. Note: Patients with mechanical aortic valve replacement and additional risk factors for thromboembolic events (atrial fibrillation, previous thromboembolism, LV dysfunction, hypercoagulable conditions) or an older generation mechanical AVR (i.e., ball in-Cage) or any mechanical MVR should have a INR therapeutic range of 2.5 to 3.5 (target INR of 3). jagruti Dunn. Chest 2012, 141:7S-47S Rikki MORALES et al. [facility] 2017, 70: 252-289 Performed By: #### 1 4979-9, 79877-2, 3255-7 #### [facility] CLIA [id number] PT Coag (PPP) [Time] 10.9 s Normal 9.7-13.0 [facility] Comment on above: Order Comment: Alex ortiz Type: BLOOD SPECIMEN Ordering Facility: [facility] Address: [address] [place] [address] Performed By: #### 1 4979-9, 97343-7, 3255-7 #### [facility] CLIA [id number] [place] [address] INR Coag (PPP) [Relative time] 1.0 {INR} Normal 0.9-1.3 [facility] Comment on above: Order Comment: Alex ortiz Type: BLOOD SPECIMEN Ordering Facility: [facility] Address: [address] [place] [address] Result Comment: Twila min K Antagonist (VKA) Therapeutic Range: INR 2 to 3 (Target INR of 2.5) Note: For patients treated with VKA drugs, such as warfarin, the [employer] 2012 Guideline recommends a therapeutic INR range of 2 to 3 (target INR of 2.5). This recommendation includes high-risk patients with antiphospholipid syndrome with previous arterial or venous thromboembolism, current-generation mechanical or bioprosthetic aortic heart valve replacement. Note: Patients with mechanical aortic valve replacement and additional risk factors for thromboembolic events (atrial fibrillation, previous thromboembolism, LV dysfunction, hypercoagulable conditions) or an older generation mechanical AVR (i.e., ball in-Cage) or any mechanical MVR should have a INR therapeutic range of 2.5 to 3.5 (target INR of 3). jagruti Dunn. Chest 2012, 141:7S-47S Rikki MORALES et al. [facility] 2017, 70: 252-289 Performed By: #### 1 4979-9, 02046-2, 3255-7 #### [facility] CLIA [id number] [place] [address] [place] PT Coag (PPP) [Time] 10.9 s Normal 9.7-13.0 [facility] Comment on above: Order Comment: Speci men Type: BLOOD SPECIMEN Ordering Facility: [facility] Address: [address] [place] [address] Performed By: #### 1 4979-9, 23448-5, 3255-7 #### [facility] CLIA [id number] [place], [place] [address] [place] Phosphate SerPl-mCncon 09-06 Phosphate [Mass/Vol] 2.5 mg/dL Low 2.7-4.8 [facility] Comment on above: Order Comment: Speci men Type: BLOOD SPECIMEN Ordering Facility: [facility] Address: [address] [place] [address] Performed By: #### 3 255-7, 85225-2, 89976-0 #### [facility] CLIA [id number] [place], [place] [id number] [place] aPTT PPPon 09-06-2023 aPTT Coag (PPP) [Time] 26.3 s Normal 23.0-32.4 [facility] Comment on above: Order Comment: Speci men Type: BLOOD SPECIMENOrdering Facility: [facility] Address: [address] [place] [address] Performed By: #### 3 4528-0, 71233-9, 3255-7 ####[facility]ORYCLIA [id number] [place] [address] [place] aPTT Coag (PPP) [Time] 25.1 s Normal 23.0-32.4 [facility] Comment on above: Order Comment: Speci men Type: BLOOD SPECIMEN Ordering Facility: [facility] Address: [address] [place] [address] Performed By: #### 1 4979-9, 53593-0, 3255-7 #### [facility] CLIA [id number] [place] [address] [place] aPTT Coag (PPP) [Time] 24.3 s Normal 23.0-32.4 [facility] Comment on above: Order Comment: Speci men Type: BLOOD SPECIMEN Ordering Facility: [facility] Address: [facility] [place] [address] Performed By: #### 1 4979-9, 58692-1, 3255-7 #### [facility] CLIA [id number] [place] [id number] [place] ANES PRE-OPon 09-05-2023 ANES PRE-OP HNO ID: [id number] Author: Genoveva Church MD Service: Anesthesiology Author Type: Anesthesiologist Type: Anesthesia Preprocedure Evaluation Filed: 09/05/2023 7:32 AM Note Text: ANESTHESIOLOGY DAY OF SURGERY NOTE : 1950 Procedure Information Date/Time: 09/05/23729 Procedure: REPAIR ANEURYSM AORTIC ABDOMINAL (Abdomen) - need CMAX bed Location: [place] [address] / OR Surgeons: Naif Graves MD Estimated body mass index is 28.07 kg/m? as calculated from the following: Height as of 09/03/23: 170.2 cm (5' 7). Weight as of 09/03/23: 81.3 kg (179 lb 3.2 oz). Most recent hematocrit and potassium results: Hematocrit 50.8 08/25/2023 K 4.6 08/25/2023 Aymptomatic AAA Stress Test: negative CONCLUSIONS: ?1. SPECT Perfusion Study: Normal. ?2. There is no scintigraphic evidence for inducible ischemia. ?3. No evidence of scarred myocardium. ?4. Left ventricle is normal in size. The left ventricle systolic function is normal. ?5. Right ventricle is normal in size. ?6. This is a low risk scan. Relevant Problems CARDIO (+) AAA (abdominal aortic aneurysm) (HCC) (+) CAD (coronary artery disease) (+) Coronary artery disease (+) Hypertension GI (+) GERD (gastroesophageal reflux disease) (+) Gastric ulcer, unspecified as acute or chronic, without mention of hemorrhage, perforation, or obstruction I - PHYSICAL EVALUATION AIRWAY Patient intubated: No. Tracheostomy tube not present Mallampati: III. TM distance: >3 FB. Neck ROM: full ROM without neurological symptoms. Mouth opening: adequate. Short neck: no. Thick neck: yes DENTAL Dental findings: missing tooth/teeth. Dentures, upper: partial. II - ANESTHESIA PLAN ASA Score: 4 Anesthetic Plan: general Airway type: ETT The patient is not a current smoker. NPO Status: adequate Beta Aditya Administration of chronic beta aditya medication planned. Monitoring Plan Monitoring plan: invasive hemodynamic monitoring. Monitoring method: CVL and arterial Line Post Procedure Analgesic Plan Postoperative analgesic plan: multimodal analgesia and epidural. Informed Consent Anesthetic risks, benefits, alternatives, personnel and consent discussed: yes. Patient / Responsible Democrat agrees to proceed: yes Patient / Surrogate agrees to blood products: Yes Vitals Value Taken Time BP 124/76 09/05/23 0725 Pulse 71 09/05/23 0730 Resp 14 09/05/23 0730 Temp 36.6 ?C (97.9 ?F) 09/05/23 0628 SpO2 95 % 09/05/23 0730 Vitals shown include unvalidated device data. Facility-Administered Medications as of 09/05/2023 Medication Dose Route Frequency - midazolam (PF) 1-2 mg injection (VERSED) 1-2 mg INTRAVENOUS ONCE - midazolam (PF) 1-2 mg injection (VERSED) 1-2 mg INTRAVENOUS ONCE - [COMPLETED] acetaminophen 1,000 mg tab(s) (TYLENOL) 1,000 mg ORAL Pre-Op Once - lactated ringers iv infusion 30 mL/hr INTRAVENOUS CONTINUOUS - lidocaine (PF) 10 mg/mL (1 %) 1-2 mg injection (XYLOCAINE) 0.1-0.2 mL INTRADERMAL ONCE - lidocaine (PF) 10 mg/mL (1 %) 1-2 mg injection (XYLOCAINE) 0.1-0.2 mL INTRADERMAL PRN - lactated ringers iv infusion 5-30 mL/hr INTRAVENOUS CONTINUOUS - NaCl 0.9% iv flush bag 20 mL INTRAVENOUS PRN - ceFAZolin iv piggyback 2 g in D5W (iso-osmotic) 100 mL (ANCEF) 2 g INTRAVENOUS Pre-Op Once Outpatient Medications as of 09/05/2023 Medication Sig - pantoprazole DR (PROTONIX) 40 mg tablet Take 1 tablet by mouth two times a day. Take on empty stomach, 1/2 hr before meal. - metoprolol succinate ER (TOPROL XL) 100 mg Take 1 tablet by mouth once daily. - amLODIPine (NORVASC) 5 mg tablet Take 1 tablet by mouth once daily. - colchicine 0.6 mg tablet Take 2 tabs by mouth, followed by 1 tab one hour later for gout flare. May repeat in 1 week. - atorvastatin (LIPITOR) 20 mg tablet Take 1 tablet by mouth once daily. For cholesterol - allopurinol (ZYLOPRIM) 100 mg tablet Take 2 tablets by mouth once daily. For gout. - amLODIPine (NORVASC) 2.5 mg tablet Take one tablet daily along with 5 mg tablet - naproxen (NAPROSYN) 500 mg tablet Take 1 tablet by mouth twice daily as needed (gout flare). Take with food. - meclizine (ANTIVERT) 25 mg tab Take 1 tablet by mouth twice daily as needed. TAKE 1 TABLET BY MOUTH NEEDED. USES FOR TRAVELING ONLY. I have interviewed and examined the patient. I have reviewed the medical record and/or the pre-anesthesia evaluation, pertinent labs, and test results. This contains updated information obtained within 48 hours of Surgery/Procedure. SIGNATURE: Genoveva Church MD PATIENT NAME: Kris Cox DATE: September 05, 2023 TIME: 7:31 AM CSN: [id number] Normal [facility] ARTERIAL BLOOD GASESon 09-05 Base deficit (BldA) [Moles/Vol] -2 mmol/L Normal -2-0 [facility] Comment on above: Order Comment: Speci men Type: ARTERIAL BLOOD SPECIMENOrdering Facility: [facility] Address: [address] [place] [address] Performed By: #### A LLBG ####[facility]ORYCLIA [id number] [place] [address] [place] Body temperature 98.6 [degF] Normal [facility] Comment on above: Order Comment: Speci men Type: ARTERIAL BLOOD SPECIMENOrdering Facility: [facility] Address: [address] [place] [address] Performed By: #### A LLBG ####[facility]ORYCLIA [id number] [place] [address] [place] Calcium.ionized (Bld) [Mass/Vol] 1.33 mmol/L High 1.08-1.30 [facility] Comment on above: Order Comment: Speci men Type: ARTERIAL BLOOD SPECIMENOrdering Facility: [facility] Address: [address] [place] [address] Performed By: #### A LLBG ####[facility]ORYCLIA [id number] [address] Calcium.ionized adjusted to pH 7.4 (BldA) [Moles/Vol] 1.28 mmol/L Normal 1.08-1.30 [facility] Comment on above: Order Comment: Speci men Type: ARTERIAL BLOOD SPECIMENOrdering Facility: [facility] Address: [address] [place] [address] Performed By: #### A LLBG ####[facility]ORYCLIA [id number] [address] [place] Carboxyhemoglobin (BldA) [Mass fraction] 1.4 % Normal 0.0-2.0 [facility] Comment on above: Order Comment: Speci men Type: ARTERIAL BLOOD SPECIMENOrdering Facility: [facility] Address: [address] [place] [address] Result Comment: Carb oxyhemoglobin Reference Range for Smokers: 2.0-8.0% Performed By: #### A LLBG ####[facility]ORATORYCLIA [id number] [place] [id number] [place] Chloride [Moles/Vol] 110 mmol/L High 97-105 [facility] Comment on above: Order Comment: Speci men Type: ARTERIAL BLOOD SPECIMENOrdering Facility: [facility] Address: [address] [place] [address] Performed By: #### A LLBG ####[facility]ORYCLIA [id number] [address] [place] CO2 (Bld) [Partial pressure] 46 mm Hg Normal 36-46 [facility] Comment on above: Order Comment: Speci men Type: ARTERIAL BLOOD SPECIMENOrdering Facility: [facility] Address: [address] [place] [address] Performed By: #### A LLBG ####[facility]ORYCLIA [id number] [place] [id number] [place] FIO2 40 % Normal [facility] Comment on above: Order Comment: Speci men Type: ARTERIAL BLOOD SPECIMENOrdering Facility: [facility] Address: [address] [place] [address] Performed By: #### A LLBG ####[facility]ORYCLIA [id number] [place] [address] [place] Glucose [Mass/Vol] 144 mg/dL High 60-105 [facility] Comment on above: Order Comment: Speci men Type: ARTERIAL BLOOD SPECIMENOrdering Facility: [facility] Address: [address] [place] [address] Performed By: #### A LLBG ####[facility]ORYCLIA [id number] [place] [address] [place] HCO3 (Bld) [Moles/Vol] 24 mmol/L Normal 22-26 [facility] Comment on above: Order Comment: Speci men Type: ARTERIAL BLOOD SPECIMENOrdering Facility: [facility] Address: [address] [place] [address] Performed By: #### A LLBG ####[facility]ORYCLIA [id number] [place] [address] [place] Hematocrit (Bld) [Volume fraction] 41.4 % Normal 39.0-51.0 [facility] Comment on above: Order Comment: Speci men Type: ARTERIAL BLOOD SPECIMENOrdering Facility: [facility] Address: [address] [place] [address] Performed By: #### A LLBG ####[facility]ORYCLIA [id number] [place] [address] [place] Hemoglobin (Bld) [Mass/Vol] 13.5 g/dL Normal 13.0-17.0 [facility] Comment on above: Order Comment: Speci men Type: ARTERIAL BLOOD SPECIMENOrdering Facility: [facility] Address: [address] [place] [address] Performed By: #### A LLBG ####[facility]ORYCLIA [id number] [place] [address] [place] INHALED TIDAL VOLUME (ML) 493 Normal [facility] Comment on above: Order Comment: Speci men Type: ARTERIAL BLOOD SPECIMENOrdering Facility: [facility] Address: [address] [place] [address] Performed By: #### A LLBG ####[facility]ORYCLIA [id number] [place] [address] [place] INSPIRATORY PRESSURE SET (CMH2O) 12 cmH2O Normal [facility] Comment on above: Order Comment: Speci men Type: ARTERIAL BLOOD SPECIMENOrdering Facility: [facility] Address: [address] [place] [address] Performed By: #### A LLBG ####[facility]ATORYCLIA [id number] [place] [address] [place] INVASIVE VENTILATOR MODE Pressure A/C (PC-CMVs) Normal [facility] Comment on above: Order Comment: Speci men Type: ARTERIAL BLOOD SPECIMENOrdering Facility: [facility] Address: [address] [place] [address] Performed By: #### A LLBG ####[facility]ORYCLIA [id number] [place] [address] [place] Lactate [Moles/Vol] 3.6 mmol/L High 0.5-2.2 [facility] Comment on above: Order Comment: Speci men Type: ARTERIAL BLOOD SPECIMENOrdering Facility: [facility] Address: [address] [place] [address] Performed By: #### A LLBG ####[facility]CLIA [id number] [place] [address] [place] Methemoglobin (Bld) [Mass fraction] 1.2 % Normal 0.0-1.5 [facility] Comment on above: Order Comment: Speci men Type: ARTERIAL BLOOD SPECIMENOrdering Facility: [facility] Address: [address] [place] [address] Performed By: #### A LLBG ####[facility]CLIA [id number] [place] [address] [place] MINUTE VENTILATION 7 L/min Normal [facility] Comment on above: Order Comment: Speci men Type: ARTERIAL BLOOD SPECIMENOrdering Facility: [facility] Address: [address] [place] [address] Performed By: #### A LLBG ####[facility]CLIA [id number] [place] [address] [place] O2 THERAPY Ventilator Normal [facility] Comment on above: Order Comment: Speci men Type: ARTERIAL BLOOD SPECIMENOrdering Facility: [facility] Address: [address] [place] [address] Performed By: #### A LLBG ####[facility]CLIA [id number] [address] [place] Oxygen (Bld) [Partial pressure] 98 mm Hg High 85-95 [facility] Comment on above: Order Comment: Speci men Type: ARTERIAL BLOOD SPECIMENOrdering Facility: [facility] Address: [address] [place] [address] Performed By: #### A LLBG ####[facility]ORYCLIA [id number] [address] [place] Oxyhemoglobin (BldA) [Mass fraction] 94 % Low 95-98 [facility] Comment on above: Order Comment: Speci men Type: ARTERIAL BLOOD SPECIMENOrdering Facility: [facility] Address: [address] [place] [address] Performed By: #### A LLBG ####[facility]CLIA [id number] [place] [address] [place] PEEP/CPAP 5 cmH2O Normal [facility] Comment on above: Order Comment: Speci men Type: ARTERIAL BLOOD SPECIMENOrdering Facility: [facility] Address: [address] [place] [address] Performed By: #### A LLBG ####[facility]CLIA [id number] [place] [address] [place] pH (Bld) 7.33 [pH] Low 7.35-7.45 [facility] Comment on above: Order Comment: Speci men Type: ARTERIAL BLOOD SPECIMENOrdering Facility: [facility] Address: [address] [place] [address] Performed By: #### A LLBG ####[facility]CLIA [id number] [place] [address] [place] PO2 / FIO2 RATIO 245 mmHg Low >300 [facility] Comment on above: Order Comment: Speci men Type: ARTERIAL BLOOD SPECIMENOrdering Facility: [facility] Address: [address] [place] [address] Performed By: #### A LLBG ####[facility]CLIA [id number] [place] [address] [place] Potassium [Moles/Vol] 4.3 mmol/L Normal 3.5-5.0 [facility] Comment on above: Order Comment: Speci men Type: ARTERIAL BLOOD SPECIMENOrdering Facility: [facility] Address: [address] [place] [address] Performed By: #### A LLBG ####[facility]CLIA [id number] [place] [address] [place] SET VENTILATOR RESPIRATORY RATE (BPM) 15 BPM Normal [facility] Comment on above: Order Comment: Speci men Type: ARTERIAL BLOOD SPECIMENOrdering Facility: [facility] Address: [address] [place] [address] Performed By: #### A LLBG ####[facility]CLIA [id number] [place] [address] [place] Sodium [Moles/Vol] 137 mmol/L Normal 136-144 [facility] Comment on above: Order Comment: Speci men Type: ARTERIAL BLOOD SPECIMENOrdering Facility: [facility] Address: [address] [place] [address] Performed By: #### A LLBG ####[facility]CLIA [id number] [place] [address] [place] Base deficit (BldA) [Moles/Vol] -3 mmol/L Low -2-0 [facility] Comment on above: Order Comment: Speci men Type: BLOOD SPECIMEN Ordering Facility: [facility] Address: [address] [place] [address] Performed By: #### 1 4979-9, 91947-2, 3255-04 #### [facility] CLIA [id number] [address] [place] [address] [place] Calcium.ionized (Bld) [Mass/Vol] 1.13 mmol/L Normal 1.08-1.30 [facility] Comment on above: Order Comment: Speci men Type: BLOOD SPECIMEN Ordering Facility: [facility] Address: [address] [place] [address] Performed By: #### 1 4979-9, 08724-9, 3255-04 #### [facility] CLIA [id number] [address] [place] [address] [place] Calcium.ionized adjusted to pH 7.4 (BldA) [Moles/Vol] 1.07 mmol/L Low 1.08-1.30 [facility] Comment on above: Order Comment: Speci men Type: BLOOD SPECIMEN Ordering Facility: [facility] Address: [address] [place] [address] Performed By: #### 1 4979-9, 76523-2, 3255-04 #### [facility] CLIA [id number] [address] [place] [address] [place] Carboxyhemoglobin (BldA) [Mass fraction] 2.0 % Normal 0.0-2.0 [facility] Comment on above: Order Comment: Speci men Type: BLOOD SPECIMEN Ordering Facility: [facility] Address: [address] [place] [address] Result Comment: Carb oxyhemoglobin Reference Range for Smokers: 2.0-8.0% Performed By: #### 1 4979-9, 39694-2, 3255-04 #### [facility] CLIA [id number] [address] [place] [address] [place] Chloride [Moles/Vol] 110 mmol/L High 97-105 [facility] Comment on above: Order Comment: Speci men Type: BLOOD SPECIMEN Ordering Facility: [facility] Address: [address] [place] [address] Performed By: #### 1 4979-9, 84767-3, 3255-04 #### [facility] CLIA [id number] [address] [place] [address] [place] CO2 (Bld) [Partial pressure] 47 mm Hg High 36-46 [facility] Comment on above: Order Comment: Speci men Type: BLOOD SPECIMEN Ordering Facility: [facility] Address: [address] [place] [address] Performed By: #### 1 4979-9, 40810-6, 3255-04 #### [facility] CLIA [id number] [address] [place] [address] [place] CO2 adjusted to patient's actual temperature (Bld) [Partial pressure] Normal [facility] Comment on above: Order Comment: Speci men Type: BLOOD SPECIMEN Ordering Facility: [facility] Address: [address] [place] [address] Performed By: #### 1 4979-9, 84221-3, 3255-04 #### [facility] CLIA [id number] [address] [place] [address] [place] Glucose [Mass/Vol] 169 mg/dL High 60-105 [facility] Comment on above: Order Comment: Speci men Type: BLOOD SPECIMEN Ordering Facility: [facility] Address: [address] [place] [address] Performed By: #### 1 4979-9, 06321-0, 3255-04 #### [facility] CLIA [id number] [address] [place] [address] [place] HCO3 (Bld) [Moles/Vol] 23 mmol/L Normal 22-26 [facility] Comment on above: Order Comment: Speci men Type: BLOOD SPECIMEN Ordering Facility: [facility] Address: [address] [place] [address] Performed By: #### 1 4979-9, 78351-8, 325-7 #### [facility] CLIA [id number] [address] [place] [address] [place] Hematocrit (Bld) [Volume fraction] 32.4 % Low 39.0-51.0 [facility] Comment on above: Order Comment: Speci men Type: BLOOD SPECIMEN Ordering Facility: [facility] Address: [address] [place] [address] Performed By: #### 1 4979-9, 02245-7, 3255-04 #### [facility] CLIA [id number] [address] [place] [address] [place] Hemoglobin (Bld) [Mass/Vol] 10.5 g/dL Low 13.0-17.0 [facility] Comment on above: Order Comment: Speci men Type: BLOOD SPECIMEN Ordering Facility: [facility] Address: [address] [place] [address] Performed By: #### 1 4979-9, 97566-7, 3255-04 #### [facility] CLIA [id number] [address] [place] [address] [place] Lactate [Moles/Vol] 4.2 mmol/L High 0.5-2.2 [facility] Comment on above: Order Comment: Speci men Type: BLOOD SPECIMEN Ordering Facility: [facility] Address: [address] [place] [address] Performed By: #### 1 4979-9, 36780-0, 3255-04 #### [facility] CLIA [id number] [address] [place] [address] [place] Methemoglobin (Bld) [Mass fraction] 1.3 % Normal 0.0-1.5 [facility] Comment on above: Order Comment: Speci men Type: BLOOD SPECIMEN Ordering Facility: [facility] Address: [address] [place] [address] Performed By: #### 1 4979-9, 86586-1, 3255-04 #### [facility] CLIA [id number] [address] [place] [address] [place] Oxygen (Bld) [Partial pressure] 140 mm Hg High 85-95 [facility] Comment on above: Order Comment: Speci men Type: BLOOD SPECIMEN Ordering Facility: [facility] Address: [address] [place] [address] Performed By: #### 1 4979-9, 78193-8, 3255-04 #### [facility] CLIA [id number] [address] [place] [address] [place] Oxygen adjusted to patient's actual temperature (Bld) [Partial pressure] Normal [facility] Comment on above: Order Comment: Speci men Type: BLOOD SPECIMEN Ordering Facility: [facility] Address: [address] [place] [address] Performed By: #### 1 4979-9, 50533-3, 3255-04 #### [facility] CLIA [id number] [address] [place] [address] [place] Oxyhemoglobin (BldA) [Mass fraction] 95 % Normal 95-98 [facility] Comment on above: Order Comment: Speci men Type: BLOOD SPECIMEN Ordering Facility: [facility] Address: [address] [place] [address] Performed By: #### 1 4979-9, 37718-0, 3255-04 #### [facility] CLIA [id number] [address] [place] [address] [place] pH (Bld) 7.30 [pH] Low 7.35-7.45 [facility] Comment on above: Order Comment: Speci men Type: BLOOD SPECIMEN Ordering Facility: [facility] Address: [address] [place] [address] Performed By: #### 1 4979-9, 54092-1, 3255-04 #### [facility] CLIA [id number] [address] [place] [address] [place] pH adjusted to patient's actual temperature (Bld) Normal [facility] Comment on above: Order Comment: Speci men Type: BLOOD SPECIMEN Ordering Facility: [facility] Address: [address] [place] [address] Performed By: #### 1 4979-9, 94576-4, 7 #### [facility] CLIA [id number] [address] [place] [address] [place] Potassium [Moles/Vol] 4.4 mmol/L Normal 3.5-5.0 [facility] Comment on above: Order Comment: Speci men Type: BLOOD SPECIMEN Ordering Facility: [facility] Address: [address] [place] [address] Performed By: #### 1 4979-9, 44844-1, 32557 #### [facility] CLIA [id number] [address] [place] [address] [place] Sodium [Moles/Vol] 138 mmol/L Normal 136-144 [facility] Comment on above: Order Comment: Speci men Type: BLOOD SPECIMEN Ordering Facility: [facility] Address: [address] [place] [address] Performed By: #### 1 4979-9, 91306-1, 0897 #### [facility] CLIA [id number] [address] [place] [address] [place] Base deficit (BldA) [Moles/Vol] -7 mmol/L Low -2-0 [facility] Comment on above: Order Comment: Speci men Type: BLOOD SPECIMEN Ordering Facility: [facility] Address: [address] [place] [address] Performed By: #### 3 255-7, 25087-5, 88312-6 #### [facility] CLIA [id number] [address] [place] [address] [place] Calcium.ionized (Bld) [Mass/Vol] 1.25 mmol/L Normal 1.08-1.30 [facility] Comment on above: Order Comment: Speci men Type: BLOOD SPECIMEN Ordering Facility: [facility] Address: [address] [place] [address] Performed By: #### 3 255-7, 75480-8, 81583-6 #### [facility] CLIA [id number] [address] [place] [address] [place] Calcium.ionized adjusted to pH 7.4 (BldA) [Moles/Vol] 1.15 mmol/L Normal 1.08-1.30 [facility] Comment on above: Order Comment: Speci men Type: BLOOD SPECIMEN Ordering Facility: [facility] Address: [address] [place] [address] Performed By: #### 3 255-7, 32103-5, 54878-0 #### [facility] CLIA [id number] [address] [place] [address] [place] Carboxyhemoglobin (BldA) [Mass fraction] 1.4 % Normal 0.0-2.0 [facility] Comment on above: Order Comment: Speci men Type: BLOOD SPECIMEN Ordering Facility: [facility] Address: [address] [place] [address] Result Comment: Carb oxyhemoglobin Reference Range for Smokers: 2.0-8.0% Performed By: #### 3 255-7, 18709-0, 66063-7 #### [facility] CLIA [id number] [address] [place] [address] [place] Chloride [Moles/Vol] 109 mmol/L High 97-105 [facility] Comment on above: Order Comment: Speci men Type: BLOOD SPECIMEN Ordering Facility: [facility] Address: [address] [place] [address] Performed By: #### 3 255-7, 52027-5, 10332-2 #### [facility] CLIA [id number] [address] [place] [address] [place] CO2 (Bld) [Partial pressure] 47 mm Hg High 36-46 [facility] Comment on above: Order Comment: Speci men Type: BLOOD SPECIMEN Ordering Facility: [facility] Address: [address] [place] [address] Performed By: #### 3 255-7, 10415-1, 96279-6 #### [facility] CLIA [id number] [address] [place] [address] [place] CO2 adjusted to patient's actual temperature (Bld) [Partial pressure] Normal [facility] Comment on above: Order Comment: Speci men Type: BLOOD SPECIMEN Ordering Facility: [facility] Address: [address] [place] [address] Performed By: #### 3 255-7, 15627-6, 20122-0 #### [facility] CLIA [id number] [place] [address] [place] Glucose [Mass/Vol] 198 mg/dL High 60-105 [facility] Comment on above: Order Comment: Speci men Type: BLOOD SPECIMEN Ordering Facility: [facility] Address: [address] [place] [address] Performed By: #### 3 255-7, 28062-6, 08498-9 #### [facility] CLIA [id number] [address] [place] [address] [place] HCO3 (Bld) [Moles/Vol] 20 mmol/L Low 22-26 [facility] Comment on above: Order Comment: Speci men Type: BLOOD SPECIMEN Ordering Facility: [facility] Address: [address] [place] [address] Performed By: #### 3 255-7, 58218-6, 25218-8 #### [facility] CLIA [id number] [address] [place] [address] [place] Hematocrit (Bld) [Volume fraction] 43.1 % Normal 39.0-51.0 [facility] Comment on above: Order Comment: Speci men Type: BLOOD SPECIMEN Ordering Facility: [facility] Address: [address] [place] [address] Performed By: #### 3 255-7, 97525-0, 56509-0 #### [facility] CLIA [id number] [address] [place] [address] [place] Hemoglobin (Bld) [Mass/Vol] 14.0 g/dL Normal 13.0-17.0 [facility] Comment on above: Order Comment: Speci men Type: BLOOD SPECIMEN Ordering Facility: [facility] Address: [address] [place] [address] Performed By: #### 3 255-7, 91740-3, 03387-8 #### [facility] CLIA [id number] [address] [place] [address] [place] Lactate [Moles/Vol] 4.8 mmol/L High 0.5-2.2 [facility] Comment on above: Order Comment: Speci men Type: BLOOD SPECIMEN Ordering Facility: [facility] Address: [address] [place] [address] Performed By: #### 3 255-7, 07617-9, 51179-5 #### [facility] CLIA [id number] Methemoglobin (Bld) [Mass fraction] 0.5 % Normal 0.0-1.5 [facility] Comment on above: Order Comment: Speci men Type: BLOOD SPECIMEN Ordering Facility: [facility] Address: [address] [place] [address] Performed By: #### 3 255-7, 14014-4, 32778-0 #### [facility] CLIA [id number] [address] [place] [address] Oxygen (Bld) [Partial pressure] 149 mm Hg High 85-95 [facility] Comment on above: Order Comment: Speci men Type: BLOOD SPECIMEN Ordering Facility: [facility] Address: [address] [place] [address] Performed By: #### 3 255-7, 12272-5, 73070-3 #### [facility] CLIA [id number] [address] [place] [address] Oxygen adjusted to patient's actual temperature (Bld) [Partial pressure] Normal [facility] Comment on above: Order Comment: Speci men Type: BLOOD SPECIMEN Ordering Facility: [facility] Address: [address] [place] [address] Performed By: #### 3 255-7, 55245-5, 08457-9 #### [facility] CLIA [id number] [address] [place] [address] [place] Oxyhemoglobin (BldA) [Mass fraction] 97 % Normal 95-98 [facility] Comment on above: Order Comment: Speci men Type: BLOOD SPECIMEN Ordering Facility: [facility] Address: [address] [place] [address] Performed By: #### 3 255-7, 06206-1, 22917-2 #### [facility] CLIA [id number] [address] [place] [address] [place] pH (Bld) 7.25 [pH] Low 7.35-7.45 [facility] Comment on above: Order Comment: Speci men Type: BLOOD SPECIMEN Ordering Facility: [facility] Address: [address] [place] [address] Performed By: #### 3 255-7, 08271-8, 21549-0 #### [facility] CLIA [id number] [address] [place] [address] [place] pH adjusted to patient's actual temperature (Bld) Normal [facility] Comment on above: Order Comment: Speci men Type: BLOOD SPECIMEN Ordering Facility: [facility] Address: [address] [place] [address] Performed By: #### 3 255-7, 23725-1, 54643-3 #### [facility] CLIA [id number] [address] [place] [address] [place] Potassium [Moles/Vol] 4.8 mmol/L Normal 3.5-5.0 [facility] Comment on above: Order Comment: Speci men Type: BLOOD SPECIMEN Ordering Facility: [facility] Address: [address] [place] [address] Performed By: #### 3 255-7, 60729-5, 03742-9 #### [facility] CLIA [id number] [address] [place] [address] [place] Sodium [Moles/Vol] 133 mmol/L Low 136-144 [facility] Comment on above: Order Comment: Speci men Type: BLOOD SPECIMEN Ordering Facility: [facility] Address: [address] [place] [address] Performed By: #### 3 255-7, 02983-4, 60339-1 #### [facility] CLIA [id number] [address] [place] [address] [place] Base deficit (BldA) [Moles/Vol] -9 mmol/L Low -2-0 [facility] Comment on above: Order Comment: Speci men Type: ARTERIAL BLOOD SPECIMENOrdering Facility: [facility] Address: [address] [place] [address] Performed By: #### A LLBG ####[facility] [id number] [place] [id number] [place] Calcium.ionized (Bld) [Mass/Vol] 1.05 mmol/L Low 1.08-1.30 [facility] Comment on above: Order Comment: Speci men Type: ARTERIAL BLOOD SPECIMENOrdering Facility: [facility] Address: [address] [place] [address] Performed By: #### A LLBG ####[facility] [id number] [place] [address] [place] Calcium.ionized adjusted to pH 7.4 (BldA) [Moles/Vol] 0.95 mmol/L Low 1.08-1.30 [facility] Comment on above: Order Comment: Speci men Type: ARTERIAL BLOOD SPECIMENOrdering Facility: [facility] Address: [address] [place] [address] Performed By: #### A LLBG ####[facility] [id number] [place] [address] [place] Carboxyhemoglobin (BldA) [Mass fraction] 1.0 % Normal 0.0-2.0 [facility] Comment on above: Order Comment: Speci men Type: ARTERIAL BLOOD SPECIMENOrdering Facility: [facility] Address: [address] [place] [address] Result Comment: Carb oxyhemoglobin Reference Range for Smokers: 2.0-8.0% Performed By: #### A LLBG ####[facility] [id number] [place] [address] [place] Chloride [Moles/Vol] 113 mmol/L High 97-105 [facility] Comment on above: Order Comment: Speci men Type: ARTERIAL BLOOD SPECIMENOrdering Facility: [facility] Address: [address] [place] [address] Performed By: #### A LLBG ####[facility] [id number] [place] [id number] [place] CO2 (Bld) [Partial pressure] 45 mm Hg Normal 36-46 [facility] Comment on above: Order Comment: Speci men Type: ARTERIAL BLOOD SPECIMENOrdering Facility: [facility] Address: [address] [place] [address] Performed By: #### A LLBG ####[facility] [id number] [place] [id number] [place] CO2 adjusted to patient's actual temperature (Bld) [Partial pressure] Normal [facility] Comment on above: Order Comment: Speci men Type: ARTERIAL BLOOD SPECIMENOrdering Facility: [facility] Address: [address] [place] [address] Performed By: #### A LLBG ####[facility] [id number] [place] [address] [place] Glucose [Mass/Vol] 199 mg/dL High 60-105 [facility] Comment on above: Order Comment: Speci men Type: ARTERIAL BLOOD SPECIMENOrdering Facility: [facility] Address: [address] [place] [address] Performed By: #### A LLBG ####[facility] [id number] [place] [address] [place] HCO3 (Bld) [Moles/Vol] 18 mmol/L Low 22-26 [facility] Comment on above: Order Comment: Speci men Type: ARTERIAL BLOOD SPECIMENOrdering Facility: [facility] Address: [address] [place] [address] Performed By: #### A LLBG ####[facility] [id number] [place] [id number] [place] Hematocrit (Bld) [Volume fraction] 45.3 % Normal 39.0-51.0 [facility] Comment on above: Order Comment: Speci men Type: ARTERIAL BLOOD SPECIMENOrdering Facility: [facility] Address: [address] [place] [address] Performed By: #### A LLBG ####[facility] [id number] [place] [address] [place] Hemoglobin (Bld) [Mass/Vol] 14.8 g/dL Normal 13.0-17.0 [facility] Comment on above: Order Comment: Speci men Type: ARTERIAL BLOOD SPECIMENOrdering Facility: [facility] Address: [address] [place] [address] Performed By: #### A LLBG ####[facility] [id number] [place] [id number] [place] Lactate [Moles/Vol] 5.7 mmol/L High 0.5-2.2 [facility] Comment on above: Order Comment: Speci men Type: ARTERIAL BLOOD SPECIMENOrdering Facility: [facility] Address: [address] [place] [address] Performed By: #### A LLBG ####[facility] [id number] [place] [address] [place] Methemoglobin (Bld) [Mass fraction] 1.0 % Normal 0.0-1.5 [facility] Comment on above: Order Comment: Speci men Type: ARTERIAL BLOOD SPECIMENOrdering Facility: [facility] Address: [address] [place] [address] Performed By: #### A LLBG ####[facility] [id number] [place] [address] [place] Oxygen (Bld) [Partial pressure] 146 mm Hg High 85-95 [facility] Comment on above: Order Comment: Speci men Type: ARTERIAL BLOOD SPECIMENOrdering Facility: [facility] Address: [address] [place] [address] Performed By: #### A LLBG ####[facility] [id number] [place] [address] [place] Oxygen adjusted to patient's actual temperature (Bld) [Partial pressure] Normal [facility] Comment on above: Order Comment: Speci men Type: ARTERIAL BLOOD SPECIMENOrdering Facility: [facility] Address: [address] [place] [address] Performed By: #### A LLBG ####[facility] [id number] [place] [id number] [place] Oxyhemoglobin (BldA) [Mass fraction] 96 % Normal 95-98 [facility] Comment on above: Order Comment: Speci men Type: ARTERIAL BLOOD SPECIMENOrdering Facility: [facility] Address: [address] [place] [address] Performed By: #### A LLBG ####[facility] [id number] [place] [id number] [place] pH (Bld) 7.23 [pH] Low 7.35-7.45 [facility] Comment on above: Order Comment: Speci men Type: ARTERIAL BLOOD SPECIMENOrdering Facility: [facility] Address: [address] [place] [address] Performed By: #### A LLBG ####[facility] [id number] [address] [place] pH adjusted to patient's actual temperature (Bld) Normal [facility] Comment on above: Order Comment: Speci men Type: ARTERIAL BLOOD SPECIMENOrdering Facility: [facility] Address: [address] [place] [address] Performed By: #### A LLBG ####[facility] [id number] [place] [address] [place] Potassium [Moles/Vol] 4.6 mmol/L Normal 3.5-5.0 [facility] Comment on above: Order Comment: Speci men Type: ARTERIAL BLOOD SPECIMENOrdering Facility: [facility] Address: [address] [place] [address] Performed By: #### A LLBG ####[facility] [id number] [place] [address] [place] Sodium [Moles/Vol] 135 mmol/L Low 136-144 [facility] Comment on above: Order Comment: Speci men Type: ARTERIAL BLOOD SPECIMENOrdering Facility: [facility] Address: [address] [place] [address] Performed By: #### A LLBG ####[facility] [id number] [place] [address] [place] BRIEF OP NOTon 09-05-2023 BRIEF OP NOT HNO ID: [id number] Author: Mohamud Caro MD Service: Vascular Surgery Author Type: Resident Type: Brief Op Note Filed: 09/05/2023 10:48 PM Note Text: BRIEF OPERATIVE / PROCEDURE NOTE LOG ID: [id number] Surgery/Procedure Date: 09/05/2023 Incision/Procedure Start Time: 9:17 AM Incision Close/Procedure End Time: 6:24 PM Surgeon(s)/Proceduralist(s) and Splicer Apprentice(s): Surgeon(s) and Role: * Naif Graves MD - Primary * Rashad Hugo MD - Resident - Assisting * Mohamud Caro MD - Resident - Assisting * Karen Guzmán MD No Additional Staff Procedure(s): CHRIS AAA: Open AAA Renal/Visceral Ischemic Time: 37 minutes Clamp Position: Above both renals Type of Graft: - Bifurcated: Right - patent and Left: - patent Hypogastric Status: Right - Patent and Left - Patent Other Bypass: No MAGGY at Completion: reimplanted Cold Renal Perfusion: No Anesthesia: General ASA Class: Findings: Infrarenal AAA. Suprarenal clamp, 37 minutes. 18x10 bifurcated graft. MAGGY reimplanted. Crystalloid 6500 Albumin 500 Cell Saver 2475 FFP 4u Platelets 2u Cryo 1u Pulses: Right PT +2 Left PT +2 Medications: Antiplatelet: Yes - Medication: Asa Dose: 81mg Anticoagulation: No Statin: Yes - Medication: Lipitor Dose: 20mg Beta Aditya: Yes - Medication: Metop Dose: 100mg ER Estimated Blood Loss: 5869 mls Specimens: None Complications: None PRE-OP/PRE-PROCEDURE DIAGNOSIS: AAA POST-OP/POST-PROCEDURE DIAGNOSIS: Same as Preop SIGNATURE: Mohamud Caro MD PATIENT NAME: Kris Cxo DATE: September 05, 2023 TIME: 6:21 PM Normal [facility] Bas Metab 2000 Pnl SerPlon 1 11-05-2022 Anion gap [Moles/Vol] 12 mmol/L Normal -18 [facility] Comment on above: Order Comment: Speci men Type: BLOOD SPECIMEN Ordering Facility: [facility] Address: [address] [place] [address] Performed By: #### 5 8410-2 #### [facility] CLIA [id number] [address] [place] [address] [place] Calcium [Mass/Vol] 9.1 mg/dL Normal 8.5-10.2 [facility] Comment on above: Order Comment: Speci men Type: BLOOD SPECIMEN Ordering Facility: [facility] Address: [address] [place] [address] Performed By: #### 5 8410-2 #### [facility] CLIA [id number] [address] [place] [address] [place] Chloride [Moles/Vol] 105 mmol/L Normal 97-105 [facility] Comment on above: Order Comment: Speci men Type: BLOOD SPECIMEN Ordering Facility: [facility] Address: [address] [place] [address] Performed By: #### 5 8410-2 #### [facility] CLIA [id number] [address] [place] [address] [place] CO2 [Moles/Vol] 23 mmol/L Normal 22-30 [facility] Comment on above: Order Comment: Speci men Type: BLOOD SPECIMEN Ordering Facility: [facility] Address: [address] [place] [address] Performed By: #### 5 8410-2 #### [facility] CLIA [id number] [address] [place] [address] [place] Creatinine [Mass/Vol] 0.96 mg/dL Normal 0.73-1.22 [facility] Comment on above: Order Comment: Speci men Type: BLOOD SPECIMEN Ordering Facility: [facility] Address: [address] [place] [address] Performed By: #### 5 8410-2 #### [facility] CLIA [id number] [address] [place] [address] [place] Creatinine and Glomerular filtration rate.predicted panel (S/P/Bld) 83 mL/min/1.73m??? Normal >=60 [facility] Comment on above: Order Comment: Speci men Type: BLOOD SPECIMEN Ordering Facility: [facility] Address: [address] [place] [address] Result Comment: Jonelle mated Glomerular Filtration Rate (eGFR) is calculated using the 2020 CKD-EPI creatinine equation. This equation utilizes serum creatinine, sex, and age as parameters. The creatinine assay has traceable calibration to isotope dilution-mass spectrometry. Refer to KDIGO guidelines for clinical interpretation. In patients with unstable renal function, e.g. those with acute kidney injury, the eGFR may not accurately reflect actual GFR. Estimated Glomerular Filtration Rate (eGFR) is calculated using the 2020 CKD-EPI creatinine equation. This equation utilizes serum creatinine, sex, and age as parameters. The creatinine assay has traceable calibration to isotope dilution-mass spectrometry. Refer to KDIGO guidelines for clinical interpretation. In patients with unstable renal function, e.g. those with acute kidney injury, the eGFR may not accurately reflect actual GFR. Performed By: #### 5 8410-2 #### [facility] CLIA [id number] [address] [place] [address] OF [facility] Result Comment: Jonelle mated Glomerular Filtration Rate (eGFR) is calculated using the 2020 CKD-EPI creatinine equation. This equation utilizes serum creatinine, sex, and age as parameters. The creatinine assay has traceable calibration to isotope dilution-mass spectrometry. Refer to KDIGO guidelines for clinical interpretation. In patients with unstable renal function, e.g. those with acute kidney injury, the eGFR may not accurately reflect actual GFR. Glucose [Mass/Vol] 145 mg/dL High 74-99 [facility] Comment on above: Order Comment: Alex ortiz Type: BLOOD SPECIMEN Ordering Facility: [facility] Address: [address] [place] [address] [place] [address] Result Comment: The [place] [employer] (ADA) provides guidance for cutoff values for fasting glucose and random glucose. The ADA defines fasting as no caloric intake for at least 8 hours. Fasting plasma glucose results between 100 to 125 mg/dL indicate increased risk for diabetes (prediabetes). Fasting plasma glucose results greater than or equal to 126 mg/dL meet the criteria for diagnosis of diabetes. In the absence of unequivocal hyperglycemia, results should be confirmed by repeat testing. In a patient with classic symptoms of hyperglycemia or hyperglycemic crisis, random plasma glucose results greater than or equal to 200 mg/dL meet the criteria for diagnosis of diabetes. Reference: Standards of Medical Care in Diabetes 2016, [place] [employer]. Diabetes Care. 2016.39(Suppl 1). Performed By: #### 5 8410-2 #### [facility] CLIA [id number] [address] [place] [address] [place] Potassium [Moles/Vol] 4.7 mmol/L Normal 3.7-5.1 [facility] Comment on above: Order Comment: Speci men Type: BLOOD SPECIMEN Ordering Facility: [facility] Address: [address] [place] [address] Performed By: #### 5 8410-2 #### [facility] CLIA [id number] [address] [place] [address] [place] Sodium [Moles/Vol] 140 mmol/L Normal 136-144 [facility] Comment on above: Order Comment: Speci men Type: BLOOD SPECIMEN Ordering Facility: [facility] Address: [address] [place] [address] Performed By: #### 5 8410-2 #### [facility] CLIA [id number] [address] [place] [address] [place] Urea nitrogen [Mass/Vol] 18 mg/dL Normal 9-24 [facility] Comment on above: Order Comment: Speci men Type: BLOOD SPECIMEN Ordering Facility: [facility] Address: [address] [place] [address] Performed By: #### 5 8410-2 #### [facility] CLIA [id number] [address] [place] [address] [place] CBC W Auto Differential pane l (Bld)on 09-05-2023 Basophils (Bld) [#/Vol] 0.08 10*3/uL Normal <0.11 [facility] Comment on above: Order Comment: Speci men Type: BLOOD SPECIMEN Ordering Facility: [facility] Address: [address] [place] [address] Performed By: #### 1 4979-9, 90106-5, 3255-7 #### [facility] CLIA [id number] [address] [place] [address] [place] Basophils/100 WBC (Bld) 0.4 % Normal [facility] Comment on above: Order Comment: Speci men Type: BLOOD SPECIMEN Ordering Facility: [facility] Address: [address] [place] [address] Performed By: #### 1 4979-9, 09101-0, 3255-04 #### [facility] CLIA [id number] [address] [place] [address] [place] Differential cell count method Nom (Bld) Auto Normal [facility] Comment on above: Order Comment: Speci men Type: BLOOD SPECIMEN Ordering Facility: [facility] Address: [address] [place] [address] Performed By: #### 1 4979-9, 41207-1, 3255-04 #### [facility] CLIA [id number] [address] [place] [address] [place] Eosinophils (Bld) [#/Vol] 0.05 10*3/uL Normal <0.46 [facility] Comment on above: Order Comment: Speci men Type: BLOOD SPECIMEN Ordering Facility: [facility] Address: [address] [place] [address] Performed By: #### 1 4979-9, 68532-9, 3255-04 #### [facility] CLIA [id number] [address] [place] [address] [place] Eosinophils/100 WBC (Bld) 0.2 % Normal [facility] Comment on above: Order Comment: Speci men Type: BLOOD SPECIMEN Ordering Facility: [facility] Address: [address] [place] [address] Performed By: #### 1 4979-9, 66181-2, 3255-04 #### [facility] CLIA [id number] [address] [place] [address] [place] Erythrocyte distribution width (RBC) [Ratio] 13.2 % Normal 11.5-15.0 [facility] Comment on above: Order Comment: Speci men Type: BLOOD SPECIMEN Ordering Facility: [facility] Address: [address] [place] [address] Performed By: #### 1 4979-9, 94065-5, 3255-04 #### [facility] CLIA [id number] [place] [address] [place] Hematocrit (Bld) [Volume fraction] 43.3 % Normal 39.0-51.0 [facility] Comment on above: Order Comment: Speci men Type: BLOOD SPECIMEN Ordering Facility: [facility] Address: [address] [place] [address] Performed By: #### 1 4979-9, 93417-6, 7 #### [facility] CLIA [id number] [address] [place] [address] [place] Hemoglobin (Bld) [Mass/Vol] 14.6 g/dL Normal 13.0-17.0 [facility] Comment on above: Order Comment: Speci men Type: BLOOD SPECIMEN Ordering Facility: [facility] Address: [address] [place] [address] Performed By: #### 1 4979-9, 99219-7, 3255-04 #### [facility] CLIA [id number] [address] [place] [address] [place] Immature granulocytes (Bld) [#/Vol] 0.43 10*3/uL High <0.10 [facility] Comment on above: Order Comment: Speci men Type: BLOOD SPECIMEN Ordering Facility: [facility] Address: [address] [place] [address] Performed By: #### 1 4979-9, 02027-7, 3255-04 #### [facility] CLIA [id number] [address] [place] [address] [place] Immature granulocytes/100 WBC (Bld) 1.9 % Normal [facility] Comment on above: Order Comment: Speci men Type: BLOOD SPECIMEN Ordering Facility: [facility] Address: [address] [place] [address] Performed By: #### 1 4979-9, 79893-4, 7 #### [facility] CLIA [id number] [address] [place] [address] [place] Lymphocytes (Bld) [#/Vol] 1.17 10*3/uL Normal 1.00-4.00 [facility] Comment on above: Order Comment: Speci men Type: BLOOD SPECIMEN Ordering Facility: [facility] Address: [address] [place] [address] Performed By: #### 1 4979-9, 13041-3, 3255-04 #### [facility] CLIA [id number] [address] [place] [address] [place] Lymphocytes/100 WBC (Bld) 5.1 % Normal [facility] Comment on above: Order Comment: Speci men Type: BLOOD SPECIMEN Ordering Facility: [facility] Address: [address] [place] [address] Performed By: #### 1 4979-9, 16674-7, 3255-04 #### [facility] CLIA [id number] [address] [place] [address] [place] MCH (RBC) [Entitic mass] 32.2 pg Normal 26.0-34.0 [facility] Comment on above: Order Comment: Speci men Type: BLOOD SPECIMEN Ordering Facility: [facility] Address: [address] [place] [address] Performed By: #### 1 4979-9, 20192-7, 3255-04 #### [facility] CLIA [id number] [address] [place] [address] [place] MCHC (RBC) [Mass/Vol] 33.7 g/dL Normal 30.5-36.0 [facility] Comment on above: Order Comment: Speci men Type: BLOOD SPECIMEN Ordering Facility: [facility] Address: [address] [place] [address] Performed By: #### 1 4979-9, 53054-5, 3255-04 #### [facility] CLIA [id number] [address] [place] [address] [place] MCV (RBC) [Entitic vol] 95.6 fL Normal 80.0-100.0 [facility] Comment on above: Order Comment: Speci men Type: BLOOD SPECIMEN Ordering Facility: [facility] Address: [address] [place] [address] Performed By: #### 1 4979-9, 24011-1, 3255-04 #### [facility] CLIA [id number] [address] [place] [address] [place] Monocytes (Bld) [#/Vol] 0.76 10*3/uL Normal <0.87 [facility] Comment on above: Order Comment: Speci men Type: BLOOD SPECIMEN Ordering Facility: [facility] Address: [address] [place] [address] Performed By: #### 1 4979-9, 88210-4, 3255-04 #### [facility] CLIA [id number] [address] [place] [address] [place] Monocytes/100 WBC (Bld) 3.3 % Normal [facility] Comment on above: Order Comment: Speci men Type: BLOOD SPECIMEN Ordering Facility: [facility] Address: [address] [place] [address] Performed By: #### 1 4979-9, 30418-6, 3255-04 #### [facility] CLIA [id number] [address] [place] [address] [place] Neutrophils (Bld) [#/Vol] 20.32 10*3/uL High 1.45-7.50 [facility] Comment on above: Order Comment: Speci men Type: BLOOD SPECIMEN Ordering Facility: [facility] Address: [address] [place] [address] Performed By: #### 1 4979-9, 66038-0, 3255-04 #### [facility] CLIA [id number] [address] [place] [address] [place] Neutrophils/100 WBC (Bld) 89.1 % Normal [facility] Comment on above: Order Comment: Speci men Type: BLOOD SPECIMEN Ordering Facility: [facility] Address: [address] [place] [address] Performed By: #### 1 4979-9, 42375-1, 3255-04 #### [facility] CLIA [id number] [address] [place] [address] [place] Nucleated RBC (Bld) [#/Vol] 10*3/uL Normal <0.01 [facility] Comment on above: Order Comment: Speci men Type: BLOOD SPECIMEN Ordering Facility: [facility] Address: [address] [place] [address] Performed By: #### 1 4979-9, 62703-1, 3255-04 #### [facility] CLIA [id number] [address] [place] [address] [place] Nucleated RBC/100 WBC (Bld) [Ratio] 0.0 /100 WBC Normal [facility] Comment on above: Order Comment: Speci men Type: BLOOD SPECIMEN Ordering Facility: [facility] Address: [address] [place] [address] Performed By: #### 1 4979-9, 62485-2, 3255-04 #### [facility] CLIA [id number] [address] [place] [address] [place] Platelet mean volume (Bld) [Entitic vol] 8.9 fL Low 9.0-12.7 [facility] Comment on above: Order Comment: Speci men Type: BLOOD SPECIMEN Ordering Facility: [facility] Address: [address] [place] [address] Performed By: #### 1 4979-9, 58762-1, 3255-04 #### [facility] CLIA [id number] [address] [place] [address] [place] Platelets (Bld) [#/Vol] 133 10*3/uL Low 150-400 [facility] Comment on above: Order Comment: Speci men Type: BLOOD SPECIMEN Ordering Facility: [facility] Address: [address] [place] [address] Performed By: #### 1 4979-9, 31714-2, 3255-04 #### [facility] CLIA [id number] [address] [place] [address] [place] RBC (Bld) [#/Vol] 4.53 10*6/uL Normal 4.20-6.00 [facility] Comment on above: Order Comment: Speci men Type: BLOOD SPECIMEN Ordering Facility: [facility] Address: [address] [place] [address] Performed By: #### 1 4979-9, 62178-2, 7 #### [facility] CLIA [id number] [address] [place] [address] [place] WBC (Bld) [#/Vol] 22.81 10*3/uL High 3.70-11.00 [facility] Comment on above: Order Comment: Speci men Type: BLOOD SPECIMEN Ordering Facility: [facility] Address: [address] [place] [address] Performed By: #### 1 4979-9, 64894-0, 3255-7 #### [facility] CLIA [id number] [address] [place] [address] [place] CBC panel Auto (Bld)on 09-05 Erythrocyte distribution width (RBC) [Ratio] 13.2 % Normal 11.5-15.0 [facility] Comment on above: Order Comment: Speci men Type: BLOOD SPECIMEN Ordering Facility: [facility] Address: [address] [place] [address] Performed By: #### 5 8410-2 #### [facility] CLIA [id number] [address] [place] [address] [place] Hematocrit (Bld) [Volume fraction] 38.4 % Low 39.0-51.0 [facility] Comment on above: Order Comment: Speci men Type: BLOOD SPECIMEN Ordering Facility: [facility] Address: [address] [place] [address] Performed By: #### 5 8410-2 #### [facility] CLIA [id number] [address] [place] [address] [place] Hemoglobin (Bld) [Mass/Vol] 13.1 g/dL Normal 13.0-17.0 [facility] Comment on above: Order Comment: Speci men Type: BLOOD SPECIMEN Ordering Facility: [facility] Address: [address] [place] [address] Performed By: #### 5 8410-2 #### [facility] CLIA [id number] [address] [place] [address] [place] MCH (RBC) [Entitic mass] 32.0 pg Normal 26.0-34.0 [facility] Comment on above: Order Comment: Speci men Type: BLOOD SPECIMEN Ordering Facility: [facility] Address: [address] [place] [address] Performed By: #### 5 8410-2 #### [facility] CLIA [id number] [address] [place] [address] [place] [facility] MCHC (RBC) [Mass/Vol] 34.1 g/dL Normal 30.5-36.0 [facility] Comment on above: Order Comment: Speci men Type: BLOOD SPECIMEN Ordering Facility: [facility] Address: [address] [place] [address] Performed By: #### 5 8410-2 #### [facility] CLIA [id number] [address] [place] [address] [place] MCV (RBC) [Entitic vol] 93.9 fL Normal 80.0-100.0 [facility] Comment on above: Order Comment: Speci men Type: BLOOD SPECIMEN Ordering Facility: [facility] Address: [address] [place] [address] Performed By: #### 5 8410-2 #### [facility] CLIA [id number] [address] [place] [address] [place] Nucleated RBC (Bld) [#/Vol] 10*3/uL Normal <0.01 [facility] Comment on above: Order Comment: Speci men Type: BLOOD SPECIMEN Ordering Facility: [facility] Address: [address] [place] [address] Performed By: #### 5 8410-2 #### [facility] CLIA [id number] [address] [place] [address] [place] Platelet mean volume (Bld) [Entitic vol] 9.0 fL Normal 9.0-12.7 [facility] Comment on above: Order Comment: Speci men Type: BLOOD SPECIMEN Ordering Facility: [facility] Address: [address] [place] [address] Performed By: #### 5 8410-2 #### [facility] CLIA [id number] [address] [place] [address] [place] Platelets (Bld) [#/Vol] 107 10*3/uL Low 150-400 [facility] Comment on above: Order Comment: Speci men Type: BLOOD SPECIMEN Ordering Facility: [facility] Address: [address] [place] [address] Performed By: #### 5 8410-2 #### [facility] CLIA [id number] [address] [place] [address] [place] RBC (Bld) [#/Vol] 4.09 10*6/uL Low 4.20-6.00 [facility] Comment on above: Order Comment: Speci men Type: BLOOD SPECIMEN Ordering Facility: [facility] Address: [address] [place] [address] Performed By: #### 5 8410-2 #### [facility] CLIA [id number] [address] [place] [address] [place] WBC (Bld) [#/Vol] 13.03 10*3/uL High 3.70-11.00 [facility] Comment on above: Order Comment: Speci men Type: BLOOD SPECIMEN Ordering Facility: [facility] Address: [address] [place] [address] Performed By: #### 5 8410-2 #### [facility] CLIA [id number] [place] CNDSon 09-05-2023 CNDS HNO ID: [id number] Author: Naif Graves MD Service: Vascular Surgery Author Type: Physician Type: Discharge Summary Filed: 09/11/2023 5:48 PM Note Text: Department of Vascular Surgery Discharge Summary (Template ID [id number]) PATIENT NAME: Kris Cox ADMISSION DATE: 09/05/2023 DISCHARGE DATE: 09/10/2023 Attending Physician: Naif Graves MD Code Status: Not on file Primary Service: Vascular Surgery Admission Diagnosis: AAA (abdominal aortic aneurysm) I71.40 Discharge Diagnosis: AAA (abdominal aortic aneurysm) I71.40 Reason for Hospitalization: Kris Cox is a 73 year old male who is scheduled for REPAIR ANEURYSM AORTIC ABDOMINAL Operations during Hospitalization: 09/05/2023 AAA Repair Hospital Course * How was the Reason for Hospitalization Addressed: Underwent above stated procedure.Uneventful post-op recovery. Post op thrombocytopenia tx with 1 5pack of platelets. POD #2 Asa and sq Heparin started. HTN treated with PRN IV metoprolol, home antihypertensives resumed at discharge. Post op Ileus resolved with bowel rest, NGT removed once bowel fx returned and advanced diet as tolerated. Remainder of home medications resumed appropriately. PT evaluation home without home care. Remainder of hospitalization occurred without difficulty. Follow up without testing in 1 month. * What were the Active Issues: Post-op Pain: Scheduled Tylenol, PRN Flexeril, Fentanyl, AND Oxycodone. Epidural placement levels ~T5-T11 Thrombocytopenia: 1 (5 pack) platelets Post-op ileus: NTG LIWS, NPO,bowel fxn returned tolerated diet HTN: PRN metoprolol 5mg IV q6h, resumed home Amlodipine, lisinopril, metoprolol Succinate Nausea: NPO, NG to LIWS, PRN Zofran * Hospital Course Complicated by: Uncomplicated * Extended Hospital Stay Due to: Expected length of stay * Specific Medication Changes: Hold home amlodipine, lisinopril, metoprolol Succinate * ID/Microbiology: Michaelle-op Ancef * Pain: Controlled with Tylenol, PRN Flexeril, Fentanyl, and Oxycodone. Epidural placement levels ~T5-T11( removed prior to discharge) * Surgical Incisions/Wounds: Waylon groin incision * Pulses: Waylon. Femoral pulses palpable * PT/OT: Home with self care * Patient Condition at Discharge: Improved * Disposition: Home with Self Care Problem List: Patient Active Hospital Problem List: AAA (abdominal aortic aneurysm) without rupture ([facility]) (09/05/2023) Hypertension (11/12/2010) Hyperlipidemia (11/12/2010) GERD (gastroesophageal reflux disease) (11/12/2010) Coronary artery disease (07/25/2011) AAA (abdominal aortic aneurysm) ([facility]) (06/23/2014) Overweight (BMI 25.0-29.9) () Acute post-operative pain (09/05/2023) Consults: Acute Pain Management Procedures Performed and Major Radiology: Epidural placement levels ~T5-T11 pain well controlled Information Provided to the Patient: Patient given copy of After Visit Summary which included activity instructions, diet instructions, wound care instructions, medication instructions and follow up appointment. ALLERGIES No Known Allergies Discharge Medications: Medication List START taking these medications acetaminophen 325 mg tablet Commonly known as: TYLENOL Take 1 tablet by mouth every 4 hours as needed for pain. aspirin 81 mg chewable tablet Take 1 tablet by mouth once daily. Start taking on: September 11, 2023 CONTINUE taking these medications allopurinol 100 mg tablet Commonly known as: ZYLOPRIM Take 2 tablets by mouth once daily. For gout. * amLODIPine 2.5 mg tablet Commonly known as: NORVASC Take one tablet daily along with 5 mg tablet * amLODIPine 5 mg tablet Commonly known as: NORVASC Take 1 tablet by mouth once daily. atorvastatin 20 mg tablet Commonly known as: LIPITOR Take 1 tablet by mouth once daily. For cholesterol colchicine 0.6 mg tablet Take 2 tabs by mouth, followed by 1 tab one hour later for gout flare. May repeat in 1 week. lisinopril 40 mg tablet Commonly known as: ZESTRIL Take 1 tablet by mouth once daily. meclizine 25 mg Tab Commonly known as: ANTIVERT Take 1 tablet by mouth twice daily as needed. TAKE 1 TABLET BY MOUTH NEEDED. USES FOR TRAVELING ONLY. metoprolol succinate ER 100 mg Commonly known as: TOPROL XL Take 1 tablet by mouth once daily. naproxen 500 mg tablet Commonly known as: NAPROSYN Take 1 tablet by mouth twice daily as needed (gout flare). Take with food. pantoprazole DR 40 mg tablet Commonly known as: PROTONIX Take 1 tablet by mouth two times a day. Take on empty stomach, 1/2 hr before meal. * This list has 2 medication(s) that are the same as other medications prescribed for you. Read the directions carefully, and ask your doctor or other care provider to review them with you. Where to Get Your Medications You can get these medications from any pharmacy You don't need a prescription for these medications acetaminophen 325 mg tablet aspirin 8 (more content not included)... [facility] CONSULT Jarett 09-05-2023 CONSULT PROG HNO ID: [id number] Author: Anna Colvin RPh Service: Pharmacy Author Type: Pharmacist Type: Consult Progress Note Filed: 09/05/2023 6:55 PM Note Text: PHARMACY PROGRESS NOTE Patient Name: Kris Cox Admission Date: 09/05/2023 Date of Consult: 09/05/2023 Time of Consult: 6:54 PM In accordance with the pharmacy dose optimization service, the following medication changes have been made: Medication Dose Frequency Indication Assessment/Plan Cefazolin 2g Q8h x 2 doses prophylaxis Order has been modified to standard dosing based on prescribed indication and estimated renal function: CrCl 71.6ml/min Medications opted-in to the pharmacy dose optimization service (From admission, onward) Start Ordered 09/05/23 1900 ceFAZolin iv piggyback 1 g in D5W (iso-osmotic) 50 mL (ANCEF) EVERY 8 HOURS Question Answer Comment Antimicrobial indication Prophylaxis Pharmacist may modify dose per [facility] dose optimization consult agreement Yes 09/05/23 6461 For medications which dose is dependent on renal function, a pharmacist will monitor renal function daily and adjust doses accordingly. Any dose adjustments needed based on changes in indication will require an LIP to enter a new order. Managing Pharmacist: Anna Colvin RPh, available at: [phone] CrCl cannot be calculated (Unknown ideal weight.). Serum creatinine and eGFR results 72 hours No lab values to display. Allergies: ALLERGIES No Known Allergies Last 3 Encounter Wt Readings: Date: Wt: 09/03/2023 81.3 kg (179 lb 3.2 oz) 08/17/2023 76.7 kg (169 lb) 07/10/2023 76.8 kg (169 lb 6.4 oz) Last 1 Encounter Ht Readings: Date: Ht: 09/03/2023 170.2 cm (5' 7) Temp (24hrs), Av.6 ?C (97.9 ?F), Min:36.6 ?C (97.9 ?F), Max:36.6 ?C (97.9 ?F) - Current Temp: 36.6 ?C (97.9 ?F) Anna Colvin RPh September 05, 2023 6:54 PM Normal [facility] Comprehensive metabolic 2000 panelon 09-05-2023 Albumin [Mass/Vol] 3.0 g/dL Low 3.9-4.9 [facility] Comment on above: Order Comment: Speci men Type: BLOOD SPECIMEN Ordering Facility: [facility] Address: [address], [place] [address] Performed By: #### 5 8410-2 #### [facility] CLIA [id number] [address] [place] [address] [place] ALP [Catalytic activity/Vol] 42 U/L Normal 38-113 [facility] Comment on above: Order Comment: Speci men Type: BLOOD SPECIMEN Ordering Facility: [facility] Address: [address] [place] [address] Performed By: #### 5 8410-2 #### [facility] CLIA [id number] [address] [place] [address] [place] ALT [Catalytic activity/Vol] 15 U/L Normal 10-54 [facility] Comment on above: Order Comment: Speci men Type: BLOOD SPECIMEN Ordering Facility: [facility] Address: [address] [place] [address] Performed By: #### 5 8410-2 #### [facility] CLIA [id number] [address] [place] [address] [place] AST [Catalytic activity/Vol] 21 U/L Normal 14-40 [facility] Comment on above: Order Comment: Speci men Type: BLOOD SPECIMEN Ordering Facility: [facility] Address: [address] [place] [address] Performed By: #### 5 8410-2 #### [facility] CLIA [id number] [address] [place] [address] [place] Bilirubin [Mass/Vol] 0.8 mg/dL Normal 0.2-1.3 [facility] Comment on above: Order Comment: Speci men Type: BLOOD SPECIMEN Ordering Facility: [facility] Address: [address] [place] [address] Performed By: #### 5 8410-2 #### [facility] CLIA [id number] [address] [place] [address] [place] Protein [Mass/Vol] 4.5 g/dL Low 6.3-8.0 [facility] Comment on above: Order Comment: Speci men Type: BLOOD SPECIMEN Ordering Facility: [facility] Address: [address] [place] [address] Performed By: #### 5 8410-2 #### [facility] CLIA [id number] [address] [place] [address] [place] Fibrinogen PPP-mCncon 2022 Fibrinogen Coag (PPP) [Mass/Vol] 268 mg/dL Normal 200-400 [facility] Comment on above: Order Comment: Alex ortiz Type: BLOOD SPECIMEN Ordering Facility: [facility] Address: [address] [place] [address] Performed By: #### 1 4979-9, 39667-8, 3255-7 #### [facility] CLIA [id number] [address] [place] [address] [place] Fibrinogen Coag (PPP) [Mass/Vol] 159 mg/dL Low 200-400 [facility] Comment on above: Order Comment: Dixoni men Type: BLOOD SPECIMEN Ordering Facility: [facility] Address: [address] [place] [address] Performed By: #### 5 8410-2 #### [facility] CLIA [id number] [address] [place] [address] Fibrinogen Coag (PPP) [Mass/Vol] 141 mg/dL Low 200-400 [facility] Comment on above: Order Comment: Alex ortiz Type: BLOOD SPECIMEN Ordering Facility: [facility] Address: [address] [place] [address] Result Comment: Samp le checked for clot. Performed By: #### 1 4979-9, 92340-2, 3255-7 #### [facility] CLIA [id number] [address] [place] [address] [place] HISTORY PHYSICALon HISTORY PHYSICAL HNO ID: [id number] Author: Naif Graves MD Service: Vascular Surgery Author Type: Physician Type: HANDP Filed: 09/05/2023 7:46 AM Note Text: UPDATED HISTORY AND PHYSICAL EXAMINATION SERVICE DATE: 09/05/2023 SERVICE TIME: 7:31 AM PHYSICAL EXAM MUST BE COMPLETED ON ADMISSION The History and Physical (completed in the past 30 days) has been reviewed and the patient has been examined. The contents accurately reflect the patient's condition with the following additions or revisions since the HANDP was completed. Examination indicates no changes. This HANDP can be found in the Electronic Medical Record dated 09/03/2023. SIGNATURE: Naif Graves MD PATIENT NAME: Kris Cox DATE: September 05, 2023 TIME: 7:45 AM Normal [facility] Lactate (Bld) [Moles/Vol]on 09-05-2023 Lactate [Moles/Vol] 3.4 mmol/L High 0.5-2.2 [facility] Comment on above: Order Comment: Speci men Type: BLOOD SPECIMENOrdering Facility: [facility] Address: [address] [place] [address] Performed By: #### 3 2693-4 ####[facility] [id number] [place] [id number] [place] Magnesium SerPl-mCncon 09-05 Magnesium [Mass/Vol] 1.6 mg/dL Low 1.7-2.3 [facility] Comment on above: Order Comment: Speci men Type: BLOOD SPECIMEN Ordering Facility: [facility] Address: [address] [place] [address] Performed By: #### 5 8410-2 #### [facility] CLIA [id number] [place] [id number] [place] NURSING PROGon 09-05-2023 NURSING PROG HNO ID: [id number] Author: Dorothy Fountain RN Service: Nursing Author Type: Registered Nurse Type: Nursing Progress Note Filed: 09/05/2023 6:16 AM Note Text: PATIENT EDUCATION TOPIC: PROCEDURE / SURGERY: Pre-op Teaching: Logistics Protocols PATIENT NAME: Kris Cox PATIENT LOCATION: [facility] OR POOL/[facility] OR POOL READINESS TO LEARN COGNITIVE ABILITY: Alert and oriented MOTIVATION TO LEARN: Eager Interested FAMILY SUPPORT: None - Unavailable/disinterested INSTRUCTION PROVIDED TO: Patient PATIENT LEARNS BEST BY: Individual Instruction FACTORS AFFECTING LEARNING: None PHYSICAL LIMITATIONS AFFECTING LEARNING: None LEARNING RESPONSE DIAGNOSIS: ADULT: Well Adult PATIENT/FAMILY RESPONSE: Verbalizes understanding of: PRE-OPERATIVE INSTRUCTIONS-Correct action to take to follow pre-operative instructions PRE-PROCEDURE INSTRUCTIONS-Correct action to take to follow pre-procedure instructions METHOD OF INSTRUCTION: Individual instruction FOLLOW-UP PLAN: Complete - No need for follow-up INSTRUCTIONAL AIDS USED: NA SUPPLEMENTAL MATERIAL PROVIDED TO PATIENT: None REFERRAL (RECOMMENDATION): None Electronically Signed By: Dorothy Fountain [facility] OPERATIVE NOon 09-05-2023 OPERATIVE NO HNO ID: [id number] Author: KAREN GUZMÁN MD Service: Vascular Surgery Author Type: Physician Type: Operative Report Filed: 10/22/2023 08:14 Note Text: OPERATIVE/PROCEDURE REPORT LOG ID: [id number] Surgery/Procedure Date: 09/05/2023 Incision/Procedure Start Time:9:17 AM Incision Close/Procedure End Time: 6:24 PM Surgeon(s)/Proceduralist(s) and Splicer Apprentice(s): Surgeon(s) and Role: * Naif Graves MD - Primary * Rashad uHgo MD - Resident - Assisting * Mohamud Caro MD - Resident - Assisting * Karen Guzmán MD No Additional Staff Procedure(s): Open transperitoneal abdominal aortic aneurysm repair (18mm x 10mm Hemashield Gold) Ligation of accessory right renal artery Reimplantation of inferior mesenteric artery Anesthesia: General Operative Indication: 73 year old male who presents for repair of a 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 Procedure details: The patient was brought into the operating room and placed supine on the operating room table. A huddle was performed with the surgery, anesthesia, and nursing teams to confirm patient name, medical record number, date of , allergies, and procedure. The patient underwent induction of general anesthesia and endotracheal intubation. A natarajan catheter was placed under sterile conditions. Antibiotics were given within one hour of incision. The patient was prepped and draped from the nipples to the knees in the usual sterile fashion. A surgical time-out was performed. A midline incision was made. The incision was deepened through the subcutaneous tissue and fascia with electrocautery. The pre-peritoneal fat was sharply divided, and the peritoneum was entered sharply. The nasogastric tube position was confirmed within the stomach. The transverse colon was elevated, and the small bowel was wrapped in a moist towel and packed to the right. The aortic aneurysm was identified and the retroperitoneum over it was incised and cleared from the renal arteries to the bilateral common iliac arteries. The Omni retractor was set up. The aorta was dissected free sharply to the level of the left renal vein. Any identified lymphatics were ligated between 2-0 silk ties or clipped. The left renal vein was dissected free and retracted cranially. There was an inadequate amount of healthy infrarenal aorta for an infrarenal aortic clamp. Therefore, the suprarenal aorta was sharply dissected free. There was a small accessory right renal artery at the level of the intended aortic sewing ring which was ligated and divided between 2-0 silk ties. Once an adequate amount of space for the suprarenal aortic clamp was dissected free, we dissected sharply on the aorta through both proximal common iliac arteries. The common iliac arteries were dissected free sharply taking care to preserve both ureters and sympathetic nerves. Both common iliac arteries and the inferior mesenteric artery were controlled with vessel loops. Mannitol was administered. Heparin was given and ACTs were checked at 30 minute intervals with heparin re-dosing, as needed. Once the ACT was greater than 250, both common iliac arteries were clamped separately. The suprarenal aorta was clamped. The aneurysm sac was opened with electrocautery and sharply. The sac contents were excised. Lumbar arteries were ligated with 0 Ethibond suture. The aorta was transected in the infrarenal aorta above the aneurysm. An 18mm x 10mm bifurcated Hemashield Gold graft was anastomosed proximally to the aorta just below the renal arteries with a running 4-0 Prolene suture. The suture line was tested with a heparinized saline bulb syringe and 4-0 repair sutures were placed, as needed. The limbs of the graft were clamped, and the suprarenal aortic clamp was removed. The proximal anastomosis was hemostatic with excellent doppler signals in both renal arteries. The total suprarenal clamp time was 37 minutes. The limbs of the graft were cut to length and anastomosed to the proximal right common iliac artery and the ostia of the left common iliac artery with a running 4-0 Prolene suture. Prior to completion of each sutureline, antegrade and retrograde flushing maneuvers were performed, and the repair was flushed with heparinized saline. Each distal anastomosis was completed, and flow was re-established down each extremity in the usual fashion. There was a palpable femoral pulse bilaterally. The inferior mesenteric artery backbleeding was assessed and found to be non-pulsatile and poor. Therefore, the inferior mesenteric artery was clamped, and a Carrel patch was made around the inferior mesenteric artery. A sidebiting clamp was applied to the left limb of the graft, and the graft was sharply opened longitudinally with an 11 blade. The graftotomy was extended with Marshall scissors, and the inferior mesenteric artery was reimplanted onto the left limb of the graft with a running 6-0 Prole (more content not included)... Normal [facility] OPERATIVE NO HNO ID: [id number] Author: Naif Graves MD Service: Vascular Surgery Author Type: Physician Type: Operative Report Filed: 09/09/2023 11:36 PM Note Text: OPERATIVE/PROCEDURE REPORT LOG ID: [id number] Surgery/Procedure Date: 09/05/2023 Incision/Procedure Start Time:9:17 AM Incision Close/Procedure End Time: 6:24 PM Surgeon(s)/Proceduralist(s) and Splicer Apprentice(s): Surgeon(s) and Role: * Naif Graves MD - Primary * Rashad Hugo MD - Resident - Assisting * Mohamud Caro MD - Resident - Assisting * Karen Guzmán MD No Additional Staff Procedure(s): Open transperitoneal abdominal aortic aneurysm repair (18mm x 10mm Hemashield Gold) Ligation of accessory right renal artery Reimplantation of inferior mesenteric artery Anesthesia: General Operative Indication: 73 year old male who presents for elective repair of an asymptomatic 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 Procedure details: The patient was brought into the operating room and placed supine on the operating room table. A huddle was performed with the surgery, anesthesia, and nursing teams to confirm patient name, medical record number, date of , allergies, and procedure. The patient underwent induction of general anesthesia and endotracheal intubation. A natarajan catheter was placed under sterile conditions. Antibiotics were given within one hour of incision. The patient was prepped and draped from the nipples to the knees in the usual sterile fashion. A surgical time-out was performed. A midline incision was made. The incision was deepened through the subcutaneous tissue and fascia with electrocautery. The pre-peritoneal fat was sharply divided, and the peritoneum was entered sharply. The nasogastric tube position was confirmed within the stomach. The transverse colon was elevated, and the small bowel was wrapped in a moist towel and packed to the right. The aortic aneurysm was identified and the retroperitoneum over it was incised and cleared from the renal arteries to the bilateral common iliac arteries. The Omni retractor was set up. The aorta was dissected free sharply to the level of the left renal vein. Any identified lymphatics were ligated between 2-0 silk ties or clipped. The left renal vein was dissected free and retracted cranially. There was an inadequate amount of healthy infrarenal aorta for an infrarenal aortic clamp. Therefore, the suprarenal aorta was sharply dissected free. There was a small accessory right renal artery at the level of the intended aortic sewing ring which was ligated and divided between 2-0 silk ties. Once an adequate amount of space for the suprarenal aortic clamp was dissected free, we dissected sharply on the aorta through both proximal common iliac arteries. The common iliac arteries were dissected free sharply taking care to preserve both ureters and sympathetic nerves. Both common iliac arteries and the inferior mesenteric artery were controlled with vessel loops. Mannitol was administered. Heparin was given and ACTs were checked at 30 minute intervals with heparin re-dosing, as needed. Once the ACT was greater than 250, both common iliac arteries were clamped separately. The suprarenal aorta was clamped. The aneurysm sac was opened with electrocautery and sharply. The sac contents were excised. Lumbar arteries were ligated with 0 Ethibond suture. The aorta was transected in the infrarenal aorta above the aneurysm. An 18mm x 10mm bifurcated Hemashield Gold graft was anastomosed proximally to the aorta just below the renal arteries with a running 4-0 Prolene suture. The suture line was tested with a heparinized saline bulb syringe and 4-0 repair sutures were placed, as needed. The limbs of the graft were clamped, and the suprarenal aortic clamp was removed. The proximal anastomosis was hemostatic with excellent doppler signals in both renal arteries. The total suprarenal clamp time was 37 minutes. The limbs of the graft were cut to length and anastomosed to the proximal right common iliac artery and the ostia of the left common iliac artery with a running 4-0 Prolene suture. Prior to completion of each sutureline, antegrade and retrograde flushing maneuvers were performed, and the repair was flushed with heparinized saline. Each distal anastomosis was completed, and flow was re-established down each extremity in the usual fashion. There was a palpable femoral pulse bilaterally. The inferior mesenteric artery backbleeding was assessed and found to be non-pulsatile and poor. Therefore, the inferior mesenteric artery was clamped, and a Carrel patch was made around the inferior mesenteric artery. A sidebiting clamp was applied to the left limb of the graft, and the graft was sharply opened longitudinally with an 11 blade. The graftotomy was extended with Marshall scissors, and the inferior mesenteric artery was reimplanted onto the left l (more content not included)... Normal [facility] PT panel Coag (PPP)on 2022 INR Coag (PPP) [Relative time] 1.0 {INR} Normal 0.9-1.3 [facility] Comment on above: Order Comment: Alex ortiz Type: BLOOD SPECIMEN [facility] Address: [place] [address] Result Comment: Twila min K Antagonist (VKA) Therapeutic Range: INR 2 to 3 (Target INR of 2.5) Note: For patients treated with VKA drugs, such as warfarin, the [employer] 2012 Guideline recommends a therapeutic INR range of 2 to 3 (target INR of 2.5). This recommendation includes high-risk patients with antiphospholipid syndrome with previous arterial or venous thromboembolism, current-generation mechanical or bioprosthetic aortic heart valve replacement. Note: Patients with mechanical aortic valve replacement and additional risk factors for thromboembolic events (atrial fibrillation, previous thromboembolism, LV dysfunction, hypercoagulable conditions) or an older generation mechanical AVR (i.e., ball in-Cage) or any mechanical MVR should have a INR therapeutic range of 2.5 to 3.5 (target INR of 3). Laquita GH, et al. Chest 2012, 141:7S-47S Rikki RA, et al. JACC 2017, 70: 252-289 Performed By: #### 1 4979-9, 02286-9, 3255-7 #### [facility] CLIA [id number] [address] [place] [address] STATES OF [facility] PT Coag (PPP) [Time] 11.2 s Normal 9.7-13.0 [facility] Comment on above: Order Comment: Alex ortiz Type: BLOOD SPECIMEN [facility] Facility: [facility] Address: [place] [address] Performed By: #### 1 4979-9, 39846-1, 3255-7 #### [facility] CLIA [id number] [address] [place] [address] [place] INR Coag (PPP) [Relative time] 1.1 {INR} Normal 0.9-1.3 [facility] Comment on above: Order Comment: Speci men Type: BLOOD SPECIMEN [facility] Facility: [facility] Address: [place] [address] Result Comment: Twila min K Antagonist (VKA) Therapeutic Range: INR 2 to 3 (Target INR of 2.5) Note: For patients treated with VKA drugs, such as warfarin, the [employer] 2012 Guideline recommends a therapeutic INR range of 2 to 3 (target INR of 2.5). This recommendation includes high-risk patients with antiphospholipid syndrome with previous arterial or venous thromboembolism, current-generation mechanical or bioprosthetic aortic heart valve replacement. Note: Patients with mechanical aortic valve replacement and additional risk factors for thromboembolic events (atrial fibrillation, previous thromboembolism, LV dysfunction, hypercoagulable conditions) or an older generation mechanical AVR (i.e., ball in-Cage) or any mechanical MVR should have a INR therapeutic range of 2.5 to 3.5 (target INR of 3). Laquita GH, et al. Chest 2012, 141:7S-47S Rikki MORALES et al. [facility] 2017, 70: 252-289 Performed By: #### 5 8410-2 #### [facility] CLIA [id number] [address] [place] [address] [place] PT Coag (PPP) [Time] 12.2 s Normal 9.7-13.0 [facility] Comment on above: Order Comment: Speci men Type: BLOOD SPECIMEN [facility] Address: [place] [address] Performed By: #### 5 8410-2 #### [facility] CLIA [id number] [place] [address] [place] INR Coag (PPP) [Relative time] 1.3 {INR} Normal 0.9-1.3 [facility] Comment on above: Order Comment: Alex ortiz Type: BLOOD SPECIMEN [facility]: [facility] Address: [address] [place] [address] Result Comment: Twila min K Antagonist (VKA) Therapeutic Range: INR 2 to 3 (Target INR of 2.5) Note: For patients treated with VKA drugs, such as warfarin, the [employer] [employer] 2012 Guideline recommends a therapeutic INR range of 2 to 3 (target INR of 2.5). This recommendation includes high-risk patients with antiphospholipid syndrome with previous arterial or venous thromboembolism, current-generation mechanical or bioprosthetic aortic heart valve replacement. Note: Patients with mechanical aortic valve replacement and additional risk factors for thromboembolic events (atrial fibrillation, previous thromboembolism, LV dysfunction, hypercoagulable conditions) or an older generation mechanical AVR (i.e., ball in-Cage) or any mechanical MVR should have a INR therapeutic range of 2.5 to 3.5 (target INR of 3). Marcellatt GH, et al. Chest 2012, 141:7S-47S Rikki RA, et al. [facility] 2017, 70: 252-289 Performed By: #### 1 4979-9, 42147-8, 3255-7 #### [facility] CLIA [id number] [address] [place] [address] [place] PT Coag (PPP) [Time] 14.6 s High 9.7-13.0 [facility] Comment on above: Order Comment: Alex ortiz Type: BLOOD SPECIMEN [facility] Address: [address] [place] [address] Result Comment: Samp le checked for clot. Performed By: #### 1 4979-9, 37225-1, 3255-7 #### [facility] CLIA [id number] [address] [place] [address] [place] Phosphate SerPl-mCncon 09-05 Phosphate [Mass/Vol] 4.8 mg/dL Normal 2.7-4.8 [facility] Comment on above: Order Comment: Alex ortiz Type: BLOOD SPECIMEN [facility] Address: [address] [place] [address] Performed By: #### 1 4979-9, 28688-6, 3255-7 #### [facility] CLIA [id number] [address] [place] [id number] [facility] STAPH AUREUS PCRon 3 S. aureus and MRSA panel GISSELL+probe (Nose) Normal Negative [facility] Comment on above: Order Comment: Speci men Type: BLOOD SPECIMEN [facility] Facility: [facility] Address: [place] [address] Result Comment: Nega tive for Staphylococcus aureus by PCR. Negative for MRSA by PCR Performed By: #### 1 4979-9, 68459-2, 3255-7 #### [facility] CLIA [id number] [place] [id number] [place] XR ABDOMEN 1V SUPINEon 09-05 XR ABDOMEN 1V SUPINE * * *Final Report* * * DATE OF EXAM: Sep 05 2023 7:58PM FVX [id number] - XR ABDOMEN 1V SUPINE / PROCEDURE REASON: Evaluate tube, line or lead position * * * * Physician Interpretation * * * * EXAMINATION: XR CHEST 1V FRONTAL PORT, XR ABDOMEN 1V SUPINE CLINICAL HISTORY: Evaluate tube, line, or lead position (accession [id number]), Evaluate tube, line or lead position (accession [id number]) Comparison: CT of the chest 02/15/2023 RESULT: Lines, tubes, and devices: * Tip of a right internal jugular vein central line projects over the expected location of the proximal superior vena cava. * The endotracheal tube terminates 6 cm above the elli. * Nasal/orogastric tube tip projects over the body of the stomach. * Epidural catheter. Lungs and pleura: Bibasilar atelectasis. No pneumothorax. Cardiomediastinal silhouette: Normal cardiomediastinal silhouette. Bones/soft tissues: Pneumoperitoneum consistent with recent abdominal aortic aneurysm repair. IMPRESSION: 1. The endotracheal tube terminates 6 cm above the elli. 2. Nasal/orogastric tube tip projects over the body of the stomach. 3. Tip of a right internal jugular vein central line projects over the proximal superior vena cava. No pneumothorax. 4. Surgical changes of abdominal aortic aneurysm repair with residual pneumoperitoneum. Sinter Feeder: [place] Transcribe Date/Time: Sep 05 2023 8:56P Dictated by : BRENDA RUIZ MD This examination was interpreted and the report reviewed and electronically signed by: BRENDA RUIZ MD on Sep 05 2023 9:01PM EST [id number] Normal [facility] XR CHEST 1V FRONTAL PORTon 1 11-05-2022 XR CHEST 1V FRONTAL PORT * * *Final Report* * * DATE OF EXAM: Sep 05 2023 7:58PM FVX [id number] - XR CHEST 1V FRONTAL PORT / PROCEDURE REASON: Evaluate tube, line, or lead position * * * * Physician Interpretation * * * * EXAMINATION: XR CHEST 1V FRONTAL PORT, XR ABDOMEN 1V SUPINE CLINICAL HISTORY: Evaluate tube, line, or lead position (accession [id number]), Evaluate tube, line or lead position (accession [id number]) Comparison: CT of the chest 02/15/2023 RESULT: Lines, tubes, and devices: * Tip of a right internal jugular vein central line projects over the expected location of the proximal superior vena cava. * The endotracheal tube terminates 6 cm above the elli. * Nasal/orogastric tube tip projects over the body of the stomach. * Epidural catheter. Lungs and pleura: Bibasilar atelectasis. No pneumothorax. Cardiomediastinal silhouette: Normal cardiomediastinal silhouette. Bones/soft tissues: Pneumoperitoneum consistent with recent abdominal aortic aneurysm repair. IMPRESSION: 1. The endotracheal tube terminates 6 cm above the elli. 2. Nasal/orogastric tube tip projects over the body of the stomach. 3. Tip of a right internal jugular vein central line projects over the proximal superior vena cava. No pneumothorax. 4. Surgical changes of abdominal aortic aneurysm repair with residual pneumoperitoneum. Sinter Feeder: [facility] Transcribe Date/Time: Sep 05 2023 8:56P Dictated by : BRENDA RUIZ MD This examination was interpreted and the report reviewed and electronically signed by: BRENDA RUIZ MD on Sep 05 2023 9:01PM EST [id number] Normal [facility] aPTT PPPon 09-05-2023 aPTT Coag (PPP) [Time] 29.3 s Normal 23.0-32.4 [facility] Comment on above: Order Comment: Speci men Type: BLOOD SPECIMEN [facility] Facility[facility] Address: [address] [place] [id number] Performed By: #### 1 4979-9, 06576-5, 3255-7 #### [facility] CLIA [id number] [address] [place] [address] aPTT Coag (PPP) [Time] 27.9 s Normal 23.0-32.4 [facility] Comment on above: Order Comment: Speci men Type: BLOOD SPECIMEN Ordering Facility: [facility] Address: [address] [place] [address] Performed By: #### 5 8410-2 #### [facility] CLIA [id number] [address] [place] [address] aPTT Coag (PPP) [Time] EXTREMELY ABNORMA L RESULT. No clot detected at 320 seconds. Refer to anticoagulation nomogram for further actions. Critically abnormal (none) [facility] Comment on above: Order Comment: Speci men Type: BLOOD SPECIMEN Ordering Facility: [facility] Address: [address] [place] [address] Performed By: #### 1 4979-9, 87675-5, 3255-7 #### [facility] CLIA [id number] [address] [place] [address] STATES OF [facility] [place] CARDIAC PERF STRESS/PHARM on 08-21-2023 [place] CARDIAC PERF STRESS/PHARM * * *Final Report* * * DATE OF EXAM: Aug 21 2023 9:51AM NACHO 0006 - NM CARDIAC PERF STRESS/PHARM / PROCEDURE REASON: Z01.818-Encounter for other preprocedural examination * * * * Physician Interpretation * * * * Stress Technical Associate Report: [facility] Date of service: 08/21/2023 8:28:27 AM Supervising physician: Fatou Carrion MD PATIENT: Name: MR. KRIS COX Age: 73 years Gender: M The supervising physician was in the department and immediately available. * * * Final * * * PATIENT: Name: MR. KRIS COX Age: 73 years Gender: M CONCLUSIONS: 1. SPECT Perfusion Study: Normal. 2. There is no scintigraphic evidence for inducible ischemia. 3. No evidence of scarred myocardium. 4. Left ventricle is normal in size. The left ventricle systolic function is normal. 5. Right ventricle is normal in size. 6. This is a low risk scan. Gated Stress IR:3D Gated Rest IR:3D LVEF % 70 69 Prior Study Comparison No prior nuclear cardiology exam available for comparison. Nuclear Med Report:1-Day Gated SPECT Myocardial Perfusion with Regadenoson Stress: Myocardial perfusion imaging was performed at rest 30 minutes following the IV injection of the radiotracer. The patient received 0.4 mg of regadenoson, via rapid IV push, immediately followed by radiotracer IV. Gated post stress tomographic imaging was performed 30 to 60 minutes later. See administered radiotracer and doses below. [facility] Date of service: 08/21/2023 8:28:27 AM Ordering Physician: NAIF GRAVES. Requesting Physician: Indication: Preop evaluation for noncardiac surgery with low/intermediate clinical risk Interpreting physician: Elmer Kidd DO Height: 170.18 cm BSA: 1.90 m? Weight: 76.66 kg BMI: 26.5 kg/m? Imaging Protocol Limitation Reason Patient motion, G.I. uptake and Liver Retention. CT Dose Reduction Employed: No. Exam Type: Rest Stress Radiopharm: Tc-99m Tetrofosmin Tc-99m Tetrofosmin Dosage(mCi): 12.93 34.3 Atten Correction: not performed not performed Stress Agent: Regadenoson 0.4mg Supply provided from [facility] Resting Blood Press: 148/74 mmHg Image Quality The overall study imaging quality was deemed to be fair. The following technical issues were noted: Patient motion, G.I. uptake and Liver Retention. FINDINGS: Left Ventricle Wall Motion: Stress IR:3D - All segments are normal. Rest IR:3D - Gated Stress IR:3D - Gated Rest IR:3D - Reversibility - Stress IR:3D Stress IR:3D Gated Stress IR:3D Gated Rest IR:3D LVEF: 70 % 69 % ED Volume: 74 ml 74 ml ES Volume: 22 ml 23 ml TID: 0.80 Perfusion Findings Stress IR:3D - Summed Score=0 All segments demonstrate normal perfusion. Rest IR:3D - Summed Score=0 All segments demonstrate normal perfusion. Stress IR:3D Rest IR:3D Summed Score=0 Summed Score=0 LEFT VENTRICLE The left ventricle is normal in size. Left ventricular systolic function is normal. Right Ventricle The right ventricle is normal in size. Stress Test Findings: There is no scintigraphic evidence for inducible ischemia. There is no evidence of scarring. * * * Final * * * Stress ECG Report: [facility] Date of service: 08/21/2023 8:28:27 AM Ordering physician: NAIF GRAVES asset specialist: Opal Burris Splicer Apprentice: Rand Sands Interpreting physician: Fatou Carrion MD Patient name: MR. KRIS COX Age: 73 years Gender: M Height: 170.18 cm BSA: 1.90 m? Weight: 76.66 kg BMI: 26.5 kg/m? Indication: Encounter for pre-procedural cardiovascular examination for non-cardiac surgery Stress ECG Conclusion: Conclusion: Normal Stress ECG Summary: The patient's resting heart rate was 59 bpm and blood pressure was 148/74 mmHg. The test was terminated due to end of protocol. No symptoms provoked during stress. The maximum heart rate was 91 bpm, which is 62% of the predicted heart rate for age. Peak blood pressure was 147/62 mmHg. The double product achieved was [address]. Medications: Last Used METOPROLOL NORVASC LIPITOR LISINOPRIL PROTONIX NAPROXEN Resting ECG: Sinus Bradycardia Symptoms at rest: No symptoms Pharamcologic Protocol: Regadenoson Stress Exercise Table: +-----+--+---+---+ Stage HR SYS KINDRA +-----+--+---+---+ 1 85 147 62 +-----+--+---+---+ 2 91 127 69 +-----+--+---+---+ 3 86 130 68 +-----+--+---+---+ 4 85 133 73 +-----+--+---+---+ 5 77 142 68 +-----+--+---+---+ 6 81 134 78 +-----+--+---+---+ +-----+- (more content not included)... [facility] Jamie 08-20-2023 CNPN Telephone (CDLBME) KRIS CXO ([id number]) 1950 M Date Time Provider Department 08/20/23 RAND SANDS [facility] During your visit today, we recorded the following information about you: Rand Sands RN 08/20/2023 1:04 PM Signed Spoke with patient regarding reminder for stress test tomorrow and given instructions. Allergies As of Date: 08/20/2023 (No Known Allergies) Date Reviewed: 08/17/2023 Reviewed by: Suki Santiago RN - Fully Assessed Reason for Visit: Reminder Call [[id number]] Prescriptions as of 08/20/2023 - metoprolol succinate ER (TOPROL XL) 100 mg Take 1 tablet by mouth once daily. - amLODIPine (NORVASC) 5 mg tablet Take 1 tablet by mouth once daily. - colchicine 0.6 mg tablet Take 2 tabs by mouth, followed by 1 tab one hour later for gout flare. May repeat in 1 week. - atorvastatin (LIPITOR) 20 mg tablet Take 1 tablet by mouth once daily. For cholesterol - allopurinol (ZYLOPRIM) 100 mg tablet Take 2 tablets by mouth once daily. For gout. - amLODIPine (NORVASC) 2.5 mg tablet Take one tablet daily along with 5 mg tablet - lisinopril (ZESTRIL) 40 mg tablet Take 1 tablet by mouth once daily. - pantoprazole DR (PROTONIX) 40 mg tablet Take 1 tablet by mouth twice daily. Take on empty stomach, 1/2 hr before meal. - naproxen (NAPROSYN) 500 mg tablet Take 1 tablet by mouth twice daily as needed (gout flare). Take with food. - meclizine (ANTIVERT) 25 mg tab Take 1 tablet by mouth twice daily as needed. TAKE 1 TABLET BY MOUTH NEEDED. USES FOR TRAVELING ONLY. 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 Absolute lymphocyte counton 10-07-2022 Lymphocytes Auto (Unsp spec) [#/Vol] 1.62 10*3/uL 0.83-4.51 [facility] Work Phone: Basophil percentageon 2021 Basophils/100 WBC (Bld) 1.4 % 0-1 [facility] Work Phone: Chloride [Moles/Vol] 107 mmol/L 98-107 [facility]: Eosinophils/100 WBC (Bld) 5.0 % 0-5 [facility] Work Phone: Glucose [Mass/Vol] 112 mg/dL 74-106 [facility] Work Phone: Comment on above: Fasting Glucose resu lt from 100 to 125 mg/dL suggests IMPAIRED HOMEOSTASIS per A.D.A. criteria. Neutrophils (Bld) [#/Vol] 3.2 10*3/uL 2.0-7.7 [facility] Work Phone: Neutrophils/100 WBC (Bld) 57.1 % 47-70 [facility] Work Phone: Potassium [Moles/Vol] 4.2 mmol/L 3.5-5.1 [facility] Work Phone: Sodium [Moles/Vol] 139 mmol/L 136-145 [facility] Work Phone: WBC (Bld) [#/Vol] 5.6 10*3/uL 4.4-11.0 [facility] Work Phone: Blood erythrocytes count (nu mber/volume)on 10-07-2022 RBC (Bld) [#/Vol] 4.93 10*6/uL 4.6-6.2 [facility] Work Phone: Blood hemoglobin measurement (mass/volume)on 10-07-2022 Hemoglobin (Bld) [Mass/Vol] 15.8 g/dL 13.0-16.5 [facility] Work Phone: Blood lymphocytes/100 leukoc yteson 10-07-2022 Lymphocytes/100 WBC (Bld) 29.1 % 19-41 [facility] Work Phone: Blood monocytes/100 leukocyt eson 10-07-2022 Monocytes/100 WBC (Bld) 7.2 % 0-10 [facility] Work Phone: Blood platelet mean volumeon 10-07-2022 Platelet mean volume (Bld) [Entitic vol] 8.8 fL 6.2-12.0 [facility] Work Phone: Determination of erythrocyte mean corpuscular volume (MCV)on 10-07-2022 MCV (RBC) [Entitic vol] 93.1 fL 80-94 [facility] Work Phone: Hematocrit Auto (Bld) [Volum e fraction]on 10-07-2022 Hematocrit (Bld) [Volume fraction] 45.9 % 40-54 [facility] Work Phone: Laboratory - Chemistry and C hemistry - challengeon 10-07-2022 CO2 [Moles/Vol] 28.0 mmol/L 21.0-32.0 [facility] Work Phone: Urea nitrogen/Creatinine [Mass ratio] 14.7 mg/mg 10-20 [facility] Work Phone: Laboratory - Hematology and Cell countson 10-07-2022 Erythrocyte distribution width (RBC) [Entitic vol] 45.0 fL 35.1-43.9 [facility] Work Phone: Erythrocyte distribution width (RBC) [Ratio] 13.2 % 11.6-14.6 [facility] Work Phone: Immature granulocytes/100 WBC (Bld) 0.200 % 0.0-0.9 [facility] Work Phone: Comment on above: IG% - Immature Granu locytes (promyelocytes, myelocytes and metamyelocytes) > 1% indicates that a LEFT SHIFT is Present. MCH (RBC) [Entitic mass] 32.0 pg 27.0-32.0 [facility] Work Phone: Nucleated RBC/100 WBC (Bld) [Ratio] 0 % 0-5 [facility] Work Phone: MCHC Auto (RBC) [Mass/Vol]on 10-07-2022 MCHC (RBC) [Mass/Vol] 34.4 g/dL 32-36 [facility] Work Phone: No Panel Informationon 10-07 Estimated Creatinine Clearance Calc 56.43 ml/min [facility] Work Phone: Estimated GFR (MDRD) Amer 85 mL/min >60 [facility] Work Phone: Comment on above: GFR Calc Estimated GFR (MDRD) Non-Af Amer 70 mL/min >60 [facility] Work Phone: Comment on above: Non- GFR Calc Platelets bldon 10-07-2022 Platelets (Bld) [#/Vol] 230 10*3/uL 150-450 [facility] Work Phone: Serum or plasma calcium jessie urement (mass/volume)on 10-07-2022 Calcium [Mass/Vol] 9.0 mg/dL 8.5-10.1 [facility] Work Phone: Serum or plasma creatinine m easurement (mass/volume)on 10-07-2022 Creatinine [Mass/Vol] 1.09 mg/dL 0.70-1.30 [facility] Work Phone: Comment on above: The validity of the calculated GFR & GFRAA in patients over 70 years has not been determined. Clinical correlation is essential. Serum or plasma urea nitroge n measurement (mass/volume)on 10-07-2022 Urea nitrogen [Mass/Vol] 16 mg/dL 7-18 [facility] Work Phone: Thin prep Papanicolaou smear with manual screeningon 10-07-2022 Thin prep Papanicolaou smear with manual screening 4 5-15 [facility] Work Phone: CTA ABD/PEL W IVCONon 10-25- [address] [facility] CREATININE BLDon 07-18-2022 Creatinine [Mass/Vol] 0.85 mg/dL 0.73 - 1.22 mg/dL [facility] Estimated Glomerular Filtration Rate 92 mL/min/1.73m >=60 mL/min/1.[address] [place] [address] Comprehensive metabolic 2000 panelon 05-05-2022 Albumin [Mass/Vol] 4.4 g/dL 3.9 - 4.9 g/dL [facility] ALP [Catalytic activity/Vol] 124 U/L High 38 - 113 U/L [facility] ALT [Catalytic activity/Vol] 13 U/L 10 - 54 U/L [facility] Anion gap [Moles/Vol] 11 mmol/L 9 - 18 mmol/L [facility] AST [Catalytic activity/Vol] 18 U/L 14 - 40 U/L [facility] Bilirubin [Mass/Vol] 0.3 mg/dL 0.2 - 1 .3 mg/dL [facility] Calcium [Mass/Vol] 9.5 mg/dL 8.5 - 10. 2 mg/dL [facility] Chloride [Moles/Vol] 103 mmol/L 97 - 10 5 mmol/L [facility] CO2 [Moles/Vol] 26 mmol/L 22 - 30 mmol/L [facility] Creatinine [Mass/Vol] 1.16 mg/dL 0.73 - 1.22 mg/dL [facility] Estimated Glomerular Filtration Rate 67 mL/min/1.73m >=60 mL/min/1.[address] [place] [address] Glucose [Mass/Vol] 97 mg/dL 74 - 99 mg/dL [facility] Potassium [Moles/Vol] 4.0 mmol/L 3.7 - 5.1 mmol/L [facility] Protein [Mass/Vol] 6.6 g/dL 6.3 - 8.0 g/dL [facility] Sodium [Moles/Vol] 140 mmol/L 136 - 144 mmol/L [facility] Urea nitrogen [Mass/Vol] 16 mg/dL 9 - 24 mg/dL [facility] No Panel Informationon 05-[address] [facility] URIC ACID BLOODon 05-05-2022 Urate [Mass/Vol] 4.1 mg/dL 4.0 - 8.1 mg/dL [facility] Basophil percentageon 2021 Basophil percentage < 0.9 mg/dL 0.70-1.30 [facility] Work Phone: No Benito Mazariegoson 03-22 Bedside Estimated GFR (eGFR) > 60.0000 mL/min >60 [facility] Work Phone: CNPNon 02-03-2022 CNPN Telephone (AGGENS1) KRIS COX ([id number]) 1950 M Date Time Provider Department 02/03/22 JORGE NOONAN AGGENS1 During your visit today, we recorded the following information about you: Allergies As of Date: 02/03/2022 (No Known Allergies) Date Reviewed: 01/31/2022 Reviewed by: Ciera Morin MA - Fully Assessed Reason for Visit: Appointment [[id number]] Cmt: SCHEDULED WITH GASTRO BRIAN HEAD ON 03/14/22 @ 1:45PM Prescriptions as of 02/03/2022 - pantoprazole DR (PROTONIX) 40 mg tablet Take 1 tablet by mouth twice daily. Take on empty stomach, 1/2 hr before meal. - allopurinol (ZYLOPRIM) 100 mg tablet Take 1 tablet by mouth once daily. For gout. - metoprolol succinate ER (TOPROL XL) 100 mg Take 1 tablet by mouth once daily. - lisinopril (ZESTRIL, PRINIVIL) 40 mg tablet Take 1 tablet by mouth once daily. - atorvastatin (LIPITOR) 20 mg tablet Take 1 tablet by mouth once daily. For cholesterol - meclizine (ANTIVERT) 25 mg tab Take 1 tablet by mouth twice daily as needed. TAKE 1 TABLET BY MOUTH NEEDED. USES FOR TRAVELING ONLY. - aspirin, enteric coated (ASPIRIN, ENTERIC COATED) 81 mg EC tablet Take 81 mg by mouth once daily. 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] 10/25/2012 Pain in joint, shoulder region [M25.519] 11/05/2013 Trigger middle finger of left hand [M65.332] 12/16/2013 AAA (abdominal aortic aneurysm) (HCC) [I71.4] 06/23/2014 Erectile dysfunction [N52.9] Overweight (BMI 25.0-29.9) [E66.3] Impaired fasting glucose [R73.01] CAD (coronary artery disease) [I25.10] 2002 Encounter Status:Closed by CARLOS QUIGLEY on 02/03/22 [facility] CNOVon 01-31-2022 CNOV Office Visit (AGGENS 1) KRIS COX ([id number]) 1950 M Date Time Provider Department 01/31/22 3:00 PM JORGE NOONAN AGGENS1 During your visit today, we recorded the following information about you: Pulse Blood pressure Weight Height 57/minute 193/104 81.6 kg 1.702 m Jorge Noonan MD 01/31/2022 3:36 PM Signed Patient referred by: Hina Carmona [address] [facility] [id number] HPI: This is a new patient consult from Dr. Carmona. He has a relevant medical hx of Multani's and diverticulitis. His Multani's has been followed with endoscopy and biopsy every 2 years, without any dysplasia. His acid reflux began at roughly age 39, which has since been managed effectively with medication. His Multani's was first diagnosed at age 49. He currently denies any difficulty with oral intake, including quick onset of fullness, nausea, and vomiting. He denies hematemesis, as well as melena and hematochezia. EGD on 12/16/21 significant for moderate duodenal stenosis, which was not traversed. EGD on 07/28/20 showed erythema, friability, and ulcerations in the first portion of the duodenum. The scope could not be advanced to the second portion of the duodenum at this time either. Biopsy of this was unremarkable. Last colonoscopy 9 years ago. Only finding on previous colonoscopy was a polyp, which was removed and pathology was negative. . PAST MEDICAL HISTORY Diagnosis Date - [facility]ab[facility] Multani's esophagus 2009 - CAD (coronary artery disease) 2002 stress test abnormal - Diverticulosis - Duodenitis without mention of hemorrhage - Erectile dysfunction - Esophagitis, unspecified - Gout - History of colonoscopy - HTN (hypertension) - Hyperlipidemia - Impaired fasting glucose - Overweight (BMI 25.0-29.9) - Vertigo PAST SURGICAL HISTORY Procedure Laterality Date - CARDIAC CATH 04/30/2007 - COLONOSCOPY FLX DX W/COLLJ SPEC WHEN PFRMD 10/25/2012 few diverticula - 10 year follow up - COLONOSCOPY FLX DX W/COLLJ SPEC WHEN PFRMD 07/28/2020 Colonoscopy - EGD 12/03/2009 dx barretts esophagus - EGD 06/10/2009 h-pylori negative - EGD BALLOON DILATION ESOPHAGUS <30 MM DIAM 01/30/2011 - EGD TRANSORAL BIOPSY SINGLE/MULTIPLE 10/25/2012 duodenitis, gastric ulcer, gastritis, small hiatal hernia, multani's esophagitis - EGD W/O [facility] SPEC VARICIES INJ 12/16/2021 - ESOPHAGOGASTRODUODENOSCOPY TRANSORAL DIAGNOSTIC 07/28/2020 EGD - EXPLORATORY SHOULDER SURGERY 1965 repair dislcoation. left - FRACTURE SURGERY Left 1961 Fractured collar bone with surgery - PAST SURGICAL HISTORY OF right and left meniscus surgeries of knee - PAST SURGICAL HISTORY OF 2008 right middle finger trigger repair - PAST SURGICAL HISTORY OF 08/02/2012 right ring trigger finger release - PAST SURGICAL HISTORY OF 01/09/2014 Left 3rd finger trigger release - TONSILLECTOMY HX FAMILY HISTORY Problem Relation Age of Onset - Cancer Mother liver - Heart Father - Lipids Father - Multiple Sclerosis Brother - other (depression) Sister Social History Tobacco Use - Smoking status: Former Smoker Packs/day: 1.00 Years: 15.00 Pack years: 15.00 Types: Cigarettes Quit date: 06/08/2002 Years since quittin.6 - Smokeless tobacco: Never Used Vaping Use - Vaping Use: Never used Substance Use Topics - Alcohol use: Yes Comment: very seldom, not even 1 drink per month - Drug use: No Current Outpatient Medications Medication Sig - pantoprazole DR (PROTONIX) 40 mg tablet Take 1 tablet by mouth twice daily. Take on empty stomach, 1/2 hr before meal. - allopurinol (ZYLOPRIM) 100 mg tablet Take 1 tablet by mouth once daily. For gout. - metoprolol succinate ER (TOPROL XL) 100 mg Take 1 tablet by mouth once daily. - lisinopril (ZESTRIL, PRINIVIL) 40 mg tablet Take 1 tablet by mouth once daily. - atorvastatin (LIPITOR) 20 mg tablet Take 1 tablet by mouth once daily. For cholesterol - meclizine (ANTIVERT) 25 mg tab Take 1 tablet by mouth twice daily as needed. TAKE 1 TABLET BY MOUTH NEEDED. USES FOR TRAVELING ONLY. - aspirin, enteric coated (ASPIRIN, ENTERIC COATED) 81 mg EC tablet Take 81 mg by mouth once daily. No current facility-administered medications for this visit. ALLERGIES No Known Allergies REVIEW OF SYSTEMS: GENERAL: No weight loss, malaise or fevers GI: Negative for abdominal pain, nausea , vomiting, diarrhea, constipation and signs of jaundice Positive for none PHYSICAL EXAM: There were no vitals taken for this visit. GENERAL APPEARANCE: Well appearing, alert, in no acute distress, well-hydrated, well nourished.. ABDOMEN: Normal abdominal exam NEURO: Alert, oriented x3, no asterixis, speech clear and articulate and [place] HEART: Normal LUNGS: Normal work of breathing on RA DATA: Diagnostic tests reviewed for today's (more content not included)... Normal [facility] Blood Urea Nitrogen, Serumon 12-05-2021 Urea nitrogen [Mass/Vol] 16 mg/dL 6 - 23 [facility] [place] Work Phone: CREATININEon 12-05-2021 Creatinine [Mass/Vol] 1.06 mg/dL Normal 0.50 - 1.30 [facility] Comment on above: Performed By: #### C REAT #### [facility] [id number] [place] [address] GFR/1.73 sq M.predicted among non-blacks MDRD (S/P/Bld) [Vol rate/Area] 74 mL/min/{1.73_m2} Normal >90 [facility] Comment on above: Result Comment: CALC ULATIONS OF ESTIMATED GFR ARE PERFORMED USING THE 2020 CKD-EPI STUDY REFIT EQUATION WITHOUT THE RACE VARIABLE FOR THE IDMS-TRACEABLE CREATININE METHODS. https://jasn.asnjournals.org/content/early/ASN.07320 40647 Performed By: #### C REAT #### [place] [id number] [place] [address] Creatinine, Serumon 12-05-19 Creatinine [Mass/Vol] 1.06 mg/dL See Below [facility] Work Phone: Comment on above: Reference Range: 0.5 0 - 1.30 Creatinine, Serum 74 {mL/min/1.73m2} >90 [facility] Work Phone: Comment on above: CALCULATIONS OF JONELLE MATED GFR ARE PERFORMED USING THE 2020 CKD-EPI STUDY REFIT EQUATION WITHOUT THE RACE VARIABLE FOR THE IDMS-TRACEABLE CREATININE METHODS.https://jasn.asnjournals.org/content/early/A SN.5698070135 UREA NITROGENon 12-05-2021 Urea nitrogen [Mass/Vol] 16 mg/dL Normal - [facility] Comment on above: Performed By: #### U JM #### [facility] [id number] [place] [address] XR Chest PA and Lateralon IMPRESSION: Hazy opacities overlying the left lower lung, pulmonary infiltrate versus atelectasis. Sinter Feeder: HAILEY Transcribe Date/Time: Sep 26 2021 3:29P Dictated by : THEE CHRISTOPHER MD This examination was interpreted and the report reviewed and electronically signed by: THEE CHRISTOPHER MD on Sep 26 2021 3:31PM [facility] DIVISION OF RADIOLOGY * * *Final Report* * * DATE OF EXAM: Sep 26 2021 3:26PM WOX [id number] - XR CHEST 2V FRONTAL/LAT / PROCEDURE REASON: Rhonchi * * * * Physician Interpretation * * * * EXAMINATION: CHEST RADIOGRAPH (2 VIEW FRONTAL & LATERAL) CLINICAL HISTORY: Rhonchi MQ: XC2_6 EXAM DATE/TIME: 09/26/2021 3:26 PM COMPARISON: No relevant prior studies available. RESULT: Lines, tubes, and devices: None. Lungs and pleura: Hazy opacities overlying the left lower lung. The right lung is clear without consolidations. There are symmetric small round opacities projecting over the lower lungs likely representing nipple shadow. There is a vertical linear opacity overlying the right upper lung. Right apical capping seen. No pleural effusions or pneumothorax. Cardiomediastinal silhouette: Normal cardiomediastinal silhouette. Bones and soft tissues: There are degenerative changes in the spine. DIVISION OF RADIOLOGY Provider, [facility] - 09/26/2021 * * *Final Report* * * DATE OF EXAM: Sep 26 2021 3:26PM WOX [id number] - XR CHEST 2V FRONTAL/LAT / PROCEDURE REASON: Rhonchi * * * * Physician Interpretation * * * * EXAMINATION: CHEST RADIOGRAPH (2 VIEW FRONTAL & LATERAL) CLINICAL HISTORY: Rhonchi MQ: XC2_6 EXAM DATE/TIME: 09/26/2021 3:26 PM COMPARISON: No relevant prior studies available. RESULT: Lines, tubes, and devices: None. Lungs and pleura: Hazy opacities overlying the left lower lung. The right lung is clear without consolidations. There are symmetric small round opacities projecting over the lower lungs likely representing nipple shadow. There is a vertical linear opacity overlying the right upper lung. Right apical capping seen. No pleural effusions or pneumothorax. Cardiomediastinal silhouette: Normal cardiomediastinal silhouette. Bones and soft tissues: There are degenerative changes in the spine. IMPRESSION IMPRESSION: Hazy opacities overlying the left lower lung, pulmonary infiltrate versus atelectasis. Sinter Feeder: HAILEY Transcribe Date/Time: Sep 26 2021 3:29P Dictated by : THEE CHRISTOPHER MD This examination was interpreted and the report reviewed and electronically signed by: THEE CHRISTOPHER MD on Sep 26 2021 3:31PM EST [facility] Radiology Study observation (narrative) [facility] XR Chest PA and LateralOrder ed By: [facility] Provider on 09-26-[address] [facility] No Panel Informationon 04-14 Please click on the link to view the study images Normal [facility] Work Phone: Office Visit (Vascular Surge ry)on 04-14-2021 Follow-up visit Diagnoses/Problems Assessed Abdominal aortic aneurysm (AAA) (441.4) (I71.4) Orders Abdominal aortic aneurysm (AAA) VASC LAB Abdominal Aorta/Iliac/IVC Ultrasound; Status:Hold For - Scheduling; Requested for:20Oct2021; Provider Impressions Stable small aneurysm. Repeat duplex in 6 months. Chief Complaint A telephone visit (audio only) between the patient (at the originating site) and the provider (at the distant site) was utilized to provide this telehealth service. Verbal consent was requested and obtained from KRIS COX on this date, 04/14/2021 02:20 PM , for a telehealth visit. AAA surveillance History of Present Illness 70 year old man with known small aneurysm. Last measured 4.9cm on CTA. Today measures 4.9cm on duplex. I spoke to him on the phone. He is well and has had no significant changes to his health since we last spoke. 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 Aspirin 81 MG Oral Tablet Delayed Releasetake 1 tablet by mouth once daily Atorvastatin Calcium 20 MG Oral TabletTAKE 1 TABLET AT BEDTIME. Lisinopril 30 MG Oral TabletTAKE 1 TABLET ONCE DAILY. Meclizine HCl - 25 MG Oral Tablet Metoprolol Succinate ER 100 MG Oral Tablet Extended Release 24 HourTAKE 1 TABLET DAILY. Naproxen 500 MG Oral Tabletas directed Pantoprazole Sodium 40 MG Oral Tablet Delayed ReleaseTAKE 1 TABLET DAILY. Time Time spent directly with patient/family/caregiver: 10 minutes. Documentation time: 5 minutes. Total time on date of patient encounter: 15 minutes. Signatures Electronically signed by : Cody Araujo MD; Apr 14 2021 3:57PM EST (Author) Normal [facility] Office Visit ([facility])on 11-18-2020 Follow-up visit Diagnoses/Problems Assessed Abdominal aortic aneurysm (AAA) (441.4) (I71.4) Provider Impressions Stable AAA. F/U 6 months with repeat duplex. Chief Complaint The patient presents to the office today for a routine follow up exam. A telephone visit (audio only) between the patient (at the originating site) and the provider (at the distant site) was utilized to provide this telehealth service. Verbal consent was requested and obtained from KRIS GONZALEZFFEN on this date, 11/18/2020 12:10 PM , for a telehealth visit. AAA Adult Risk Screening There are no spiritual/cultural practices/values/needs that are important to know Initial Fall Risk Screening: KRIS has not fallen in the last 6 months. History of Present Illness Patient with known small AAA. He had a recent ultrasound at [facility] that showed growth to 5.8cm from about 4.8cm in [place] [address] He remains asymptomatic. I obtained a repeat CTA that shows the aneurysm is stable at 5cm. 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 Aspirin 81 MG Oral Tablet Delayed Releasetake 1 tablet by mouth once daily Atorvastatin Calcium 20 MG Oral TabletTAKE 1 TABLET AT BEDTIME. Lisinopril 30 MG Oral TabletTAKE 1 TABLET ONCE DAILY. Meclizine HCl - 25 MG Oral Tablet Metoprolol Succinate ER 100 MG Oral Tablet Extended Release 24 HourTAKE 1 TABLET DAILY. Naproxen 500 MG Oral Tabletas directed Pantoprazole Sodium 40 MG Oral Tablet Delayed ReleaseTAKE 1 TABLET DAILY. Time Time spent directly with patient/family/caregiver: 15 minutes. Total time on date of patient encounter: 15 minutes. Signatures Electronically signed by : Cody Araujo MD; Nov 18 2020 12:34PM EST (Author) Normal [employer] Additional Injections: R ind ex A1 [facility] Vital Signs Date Time Vital Sign Value Performing Clinician Facility 01-09-2025 07:06-0400 Body mass index (BMI) [Ratio] 26.03 kg/m2 Samuel Foy MD Work Phone: [facility] 01-09-2025 07:06-0400 Body weight 75.39 kg Samuel Foy MD Work Phone: [facility] 01-09-2025 07:06-0400 Diastolic blood pressure 62 mm[Hg] Samuel Foy MD Work Phone: [facility] 01-09-2025 07:06-0400 Heart rate 69 /min Samuel Foy MD Work Phone: [facility] 01-09-2025 07:06-0400 Respiratory rate 16 /min Samuel Foy MD Work Phone: [facility] 01-09-2025 07:06-0400 SaO2% (BldA) [Mass fraction] 98 % Samuel Foy MD Work Phone: [facility] 01-09-2025 07:06-0400 Systolic blood pressure 112 mm[Hg] Samuel Foy MD Work Phone: 7(328)645-361416 [place] [address] 12-16-2024 13:30-0400 Body height 170.[address] Rush Foy MD Work Phone: 5(229)748-006481 [place] [address] 12-16-2024 13:30-0400 Body mass index (BMI) [Ratio] 26 kg/m2 Dr. Rush Foy MD Work Phone: 1(017)522-614681 [place] [address] 12-16-2024 13:30-0400 Body weight 75.[address] Rush Foy MD Work Phone: 9(244)761-911581 [place] [address] 12-16-2024 13:30-0400 Diastolic blood pressure 66 mm[Hg] Dr. Rush Foy MD Work Phone: 1(838)186-273481 [place] [address] 12-16-2024 13:30-0400 Heart rate 57 /min Dr. Rush Foy MD Work Phone: 5(160)969-455181 [place] [address] 12-16-2024 13:30-0400 Respiratory rate 16 /min Dr. Rush Foy MD Work Phone: 1(563)667-77[address] [place] [address] 12-16-2024 13:30-0400 SaO2% (BldA) [Mass fraction] 95 % Dr. Rush Foy MD Work Phone: 0(810)705-238481 [place] [address] 12-16-2024 13:30-0400 Systolic blood pressure 107 mm[Hg] Dr. Rush Foy MD Work Phone: 7(423)064-420381 [place] [address] 12-04-2024 12:35-0500 Body temperature 97.9 [degF] Dr. Rush Foy MD Work Phone: 8(317)506-821914 [place] [address] 12-04-2024 12:35-0500 Diastolic blood pressure 62 mm[Hg] Dr. Rush Foy MD Work Phone: 0(233)715-929014 [place] [address] 12-04-2024 12:35-0500 Heart rate 70 /min Dr. Rush Foy MD Work Phone: 1(116)200-188314 [place] [address] 12-04-2024 12:35-0500 Respiratory rate 16 /min Dr. Rush Foy MD Work Phone: 1(704)238-464414 [place] [address] 12-04-2024 12:35-0500 SaO2% (BldA) [Mass fraction] 98 % Dr. Rush Foy MD Work Phone: 7(623)662-376714 [place] [address] 12-04-2024 12:35-0500 Systolic blood pressure 99 mm[Hg] Dr. Rush Foy MD Work Phone: 4(564)237-379114 [place] [address] 12-04-2024 10:10-0500 Body mass index (BMI) [Ratio] 25.7 kg/m2 Dr. Rush Foy MD Work Phone: 0(227)589-017314 [place] [address] 12-04-2024 10:10-0500 Body weight 74.[address] Rush Foy MD Work Phone: 4(776)821-640014 [place] [address] 11-19-2024 10:01-0500 Body mass index (BMI) [Ratio] 25.9 kg/m2 Dr. Rush Foy MD Work Phone: 4(745)897-095114 [place] [address] 11-19-2024 10:01-0500 Body weight 75.[address] Rush Foy MD Work Phone: 2(817)286-296114 [place] [address] 11-19-2024 10:01-0500 Diastolic blood pressure 76 mm[Hg] Dr. Rush Foy MD Work Phone: 3(473)776-498614 [place] [address] 11-19-2024 10:01-0500 Respiratory rate 18 /min Dr. Rush Foy MD Work Phone: 7(992)093-921214 [place] [address] 11-19-2024 10:01-0500 SaO2% (BldA) [Mass fraction] 95 % Dr. Rush Foy MD Work Phone: [facility] 11-19-2024 10:01-0500 Systolic blood pressure 148 mm[Hg] Dr. Rush Foy MD Work Phone: [facility] 11-10-2024 13:02-0500 Body mass index (BMI) [Ratio] 25.69 kg/m2 Naif Graves MD Work Phone: [facility] 11-10-2024 13:02-0500 Body weight 74.39 kg Naif Graves MD Work Phone: [facility] 11-04-2024 10:02-0500 Body mass index (BMI) [Ratio] 25.81 kg/m2 Samuel Foy MD Work Phone: [facility] 11-04-2024 10:02-0500 Body weight 74.75 kg Samuel Foy MD Work Phone: [facility] 11-04-2024 10:02-0500 Diastolic blood pressure 64 mm[Hg] Samuel Foy MD Work Phone: [facility] 11-04-2024 10:02-0500 Heart rate 60 /min Samuel Foy MD Work Phone: [facility] 11-04-2024 10:02-0500 Respiratory rate 16 /min Samuel Foy MD Work Phone: [facility] 11-04-2024 10:02-0500 SaO2% (BldA) [Mass fraction] 97 % Samuel Foy MD Work Phone: [facility] 11-04-2024 10:02-0500 Systolic blood pressure 120 mm[Hg] Samuel Foy MD Work Phone: [facility] 10-27-2024 01:03-0500 Body temperature 98.1 [degF] Dr. Rush Foy MD Work Phone: [facility] 10-27-2024 01:03-0500 Diastolic blood pressure 67 mm[Hg] Dr. Rush Foy MD Work Phone: 3(988)790-230081 [place] [address] 10-27-2024 01:03-0500 Heart rate 76 /min Dr. Rush Foy MD Work Phone: 1(152)285-595914 [place] [address] 10-27-2024 01:03-0500 Respiratory rate 16 /min Dr. Rush Foy MD Work Phone: 1(949)664-837714 [place] [address] 10-27-2024 01:03-0500 SaO2% (BldA) [Mass fraction] 94 % Dr. Rush Foy MD Work Phone: 6(331)577-042014 [place] [address] 10-27-2024 01:03-0500 Systolic blood pressure 138 mm[Hg] Dr. Rush Foy MD Work Phone: 3(214)058-546414 [place] [address] 10-26-2024 22:05-0500 Body mass index (BMI) [Ratio] 25.6 kg/m2 Dr. Rush Foy MD Work Phone: 8(000)334-061981 [place] [address] 10-26-2024 22:05-0500 Body weight 74.[address] Rush Foy MD Work Phone: [facility] 07-11-2024 07:21-0400 Body mass index (BMI) [Ratio] 23.82 kg/m2 Melanie Podlogar HVAC ESTIMATOR.PROFILE STITCHING MACHINE OPERATOR Work Phone: [facility] 07-11-2024 07:21-0400 Body weight 69 kg Melanie Podlogar HVAC ESTIMATOR.PROFILE STITCHING MACHINE OPERATOR Work Phone: [facility] 07-11-2024 07:21-0400 Diastolic blood pressure 70 mm[Hg] Melanie Podlogar HVAC ESTIMATOR.PROFILE STITCHING MACHINE OPERATOR Work Phone: [facility] 07-11-2024 07:21-0400 Heart rate 75 /min Melanie Podlogar HVAC ESTIMATOR.PROFILE STITCHING MACHINE OPERATOR Work Phone: [facility] 07-11-2024 07:21-0400 Respiratory rate 16 /min Melanie Podlogar HVAC ESTIMATOR.PROFILE STITCHING MACHINE OPERATOR Work Phone: [facility] 07-11-2024 07:21-0400 SaO2% (BldA) [Mass fraction] 96 % Melanie Livingston APRN.PROFILE STITCHING MACHINE OPERATOR Work Phone: [facility] 07-11-2024 07:21-0400 Systolic blood pressure 122 mm[Hg] Melanie Livingston APRN.PROFILE STITCHING MACHINE OPERATOR Work Phone: [facility] 07-02-2024 08:32-0400 Body height 170.2 cm Samuel Foy MD Work Phone: [facility] 07-02-2024 08:32-0400 Body mass index (BMI) [Ratio] 23.65 kg/m2 Samuel Foy MD Work Phone: [facility] 07-02-2024 08:32-0400 Body temperature 98.71 [degF] Samuel Foy MD Work Phone: [facility] 07-02-2024 08:32-0400 Body weight 68.49 kg Samuel Foy MD Work Phone: [facility] 07-02-2024 08:32-0400 Diastolic blood pressure 62 mm[Hg] Samuel Foy MD Work Phone: [facility] 07-02-2024 08:32-0400 Heart rate 59 /min Samuel Foy MD Work Phone: [facility] 07-02-2024 08:32-0400 Respiratory rate 12 /min Samuel Foy MD Work Phone: [facility] 07-02-2024 08:32-0400 SaO2% (BldA) [Mass fraction] 98 % Samuel Foy MD Work Phone: [facility] 07-02-2024 08:32-0400 Systolic blood pressure 130 mm[Hg] Samuel Foy MD Work Phone: [facility] 06-23-2024 07:40-0400 Body mass index (BMI) [Ratio] 23.61 kg/m2 Krislyn Aberegg PA Work Phone: [facility] 06-23-2024 07:40-0400 Body temperature 96.91 [degF] Krislyn Aberegg PA Work Phone: [facility] 06-23-2024 07:40-0400 Body weight 68.4 kg Krislyn Aberegg PA Work Phone: [facility] 06-23-2024 07:40-0400 Diastolic blood pressure 60 mm[Hg] Krislyn Aberegg PA Work Phone: [facility] 06-23-2024 07:40-0400 Heart rate 68 /min Krislyn Aberegg PA Work Phone: [facility] 06-23-2024 07:40-0400 Respiratory rate 16 /min Krislyn Aberegg PA Work Phone: [facility] 06-23-2024 07:40-0400 SaO2% (BldA) [Mass fraction] 98 % Krislyn Aberegg PA Work Phone: [facility] 06-23-2024 07:40-0400 Systolic blood pressure 122 mm[Hg] Krislyn Aberegg PA Work Phone: [facility] 05-07-2024 08:23-0400 Body mass index (BMI) [Ratio] 24.61 kg/m2 Ana Herrera HVAC ESTIMATOR.PROFILE STITCHING MACHINE OPERATOR Work Phone: [facility] 05-07-2024 08:23-0400 Body temperature 98.6 [degF] Ana Herrera HVAC ESTIMATOR.PROFILE STITCHING MACHINE OPERATOR Work Phone: [facility] 05-07-2024 08:23-0400 Body weight 71.3 kg Ana Herrera HVAC ESTIMATOR.PROFILE STITCHING MACHINE OPERATOR Work Phone: [facility] 05-07-2024 08:23-0400 Diastolic blood pressure 78 mm[Hg] Ana Herrera HVAC ESTIMATOR.PROFILE STITCHING MACHINE OPERATOR Work Phone: [facility] 05-07-2024 08:23-0400 Heart rate 77 /min Ana Herrera HVAC ESTIMATOR.PROFILE STITCHING MACHINE OPERATOR Work Phone: [facility] 05-07-2024 08:23-0400 Respiratory rate 16 /min Ana Herrera HVAC ESTIMATOR.PROFILE STITCHING MACHINE OPERATOR Work Phone: [facility] 05-07-2024 08:23-0400 SaO2% (BldA) [Mass fraction] 96 % Ana Herrera HVAC ESTIMATOR.PROFILE STITCHING MACHINE OPERATOR Work Phone: [facility] 05-07-2024 08:23-0400 Systolic blood pressure 132 mm[Hg] Ana Herrera HVAC ESTIMATOR.PROFILE STITCHING MACHINE OPERATOR Work Phone: [facility] 01-09-2024 07:58-0400 Body weight 74.57 kg Melnaie Podlogar HVAC ESTIMATOR.PROFILE STITCHING MACHINE OPERATOR Work Phone: [facility] 01-09-2024 07:58-0400 Diastolic blood pressure 66 mm[Hg] Melanie Podlogar HVAC ESTIMATOR.PROFILE STITCHING MACHINE OPERATOR Work Phone: [facility] 01-09-2024 07:58-0400 Heart rate 58 /min Melanie Podlogar HVAC ESTIMATOR.PROFILE STITCHING MACHINE OPERATOR Work Phone: [facility] 01-09-2024 07:58-0400 Respiratory rate 18 /min Melanie Podlogar HVAC ESTIMATOR.PROFILE STITCHING MACHINE OPERATOR Work Phone: [facility] 01-09-2024 07:58-0400 SaO2% (BldA) [Mass fraction] 96 % Melanie Podlogar HVAC ESTIMATOR.PROFILE STITCHING MACHINE OPERATOR Work Phone: [facility] 01-09-2024 07:58-0400 Systolic blood pressure 106 mm[Hg] Melanie Podlogar HVAC ESTIMATOR.PROFILE STITCHING MACHINE OPERATOR Work Phone: [facility] 09-06-2023 14:40-0500 SaO2% (BldA) [Mass fraction] 97 % [facility] Comment on above: Order Comment: Specimen Type: ARTERIAL B LOOD SPECIMENOrdering Facility: [facility] Address: [address] [place] [address] Performed By: #### A [facility] ####[facility] [facility] [id number] [address] 09-06-2023 09:41-0500 SaO2% (BldA) [Mass fraction] 97 % [facility] Comment on above: Order Comment: Specimen Type: BLOOD SPEC IMEN Ordering Facility: [facility] Address: [address] [place] [address] Performed By: #### 1 [id number], [id number], [id number] #### [facility] CLIA [id number] 09-06-2023 03:06-0500 SaO2% (BldA) [Mass fraction] 95 % [facility] Comment on above: Order Comment: Specimen Type: ARTERIAL B LOOD SPECIMEN Ordering Facility: [facility] Address: [address] [place] [address] Performed By: #### A [facility] #### [facility] [place] [id number] [address] [place] [address] 09-05-2023 21:25-0500 SaO2% (BldA) [Mass fraction] 97 % [facility] Comment on above: Order Comment: Specimen Type: ARTERIAL B LOOD SPECIMENOrdering Facility: [facility] Address: [address] [place] [address] Performed By: #### A [facility] ####[facility]ORY[facility] [id number] [address] 09-05-2023 18:54-0500 SaO2% (BldA) [Mass fraction] 99 % [facility] Comment on above: Order Comment: Specimen Type: BLOOD SPEC IMEN Ordering Facility: [facility] Address: [address] [place] [address] Performed By: #### 1 [id number], [id number], 3255-7 #### [facility] CLIA [id number] [place] [id number] [facility] 09-05-2023 17:24-0500 SaO2% (BldA) [Mass fraction] 99 % [facility] Comment on above: Order Comment: Specimen Type: BLOOD SPEC IMEN Ordering Facility: [facility] Address: [address] [place] [address] Performed By: #### 3 [id number], [id number], 59888-1 #### [facility] CLIA [id number] [place] [id number] [facility] 09-05-2023 16:35-0500 SaO2% (BldA) [Mass fraction] 98 % [facility] Comment on above: Order Comment: Specimen Type: ARTERIAL B LOOD SPECIMENOrdering Facility: [facility] Address: [address] [place] [address] Performed By: #### A [facility] ####[facility]ORYCLIA [id number] [place] [id number] [facility] 08-24-2023 13:43-0500 Diastolic blood pressure 79 mm[Hg] Naif Graves MD Work Phone: [facility] 08-24-2023 13:43-0500 Heart rate 50 /min Naif Graves MD Work Phone: [facility] 08-24-2023 13:43-0500 Systolic blood pressure 127 mm[Hg] Naif Graves MD Work Phone: [facility] 08-17-2023 10:43-0500 Body height 170.2 cm Naif Graves MD Work Phone: [facility] 08-17-2023 10:43-0500 Body weight 76.66 kg Naif Graves MD Work Phone: [facility] 02-19-2023 09:37-0400 Body weight 79.2 kg Melanie Livingston APRN.PROFILE STITCHING MACHINE OPERATOR Work Phone: [facility] 02-19-2023 09:37-0400 Diastolic blood pressure 78 mm[Hg] Melanie Livingston APRN.PROFILE STITCHING MACHINE OPERATOR Work Phone: [facility] 02-19-2023 09:37-0400 Heart rate 51 /min Melanie Podlogar HVAC ESTIMATOR.PROFILE STITCHING MACHINE OPERATOR Work Phone: [facility] 02-19-2023 09:37-0400 Respiratory rate 16 /min Melanie Podlogar HVAC ESTIMATOR.PROFILE STITCHING MACHINE OPERATOR Work Phone: [facility] 02-19-2023 09:37-0400 SaO2% (BldA) [Mass fraction] 97 % Melanie Podlogar HVAC ESTIMATOR.PROFILE STITCHING MACHINE OPERATOR Work Phone: [facility] 02-19-2023 09:37-0400 Systolic blood pressure 132 mm[Hg] Melanie Podlogar HVAC ESTIMATOR.PROFILE STITCHING MACHINE OPERATOR Work Phone: [facility] 12-19-2022 13:54-0400 Body weight 78.47 kg Melanie Podlogar HVAC ESTIMATOR.PROFILE STITCHING MACHINE OPERATOR Work Phone: [facility] 12-19-2022 13:54-0400 Diastolic blood pressure 68 mm[Hg] Melanie Podlogar HVAC ESTIMATOR.PROFILE STITCHING MACHINE OPERATOR Work Phone: [facility] 12-19-2022 13:54-0400 Heart rate 77 /min Melanie Podlogar HVAC ESTIMATOR.PROFILE STITCHING MACHINE OPERATOR Work Phone: [facility] 12-19-2022 13:54-0400 Respiratory rate 16 /min Melanie Podlogar HVAC ESTIMATOR.PROFILE STITCHING MACHINE OPERATOR Work Phone: [facility] 12-19-2022 13:54-0400 SaO2% (BldA) [Mass fraction] 97 % Melanie Podlogar HVAC ESTIMATOR.PROFILE STITCHING MACHINE OPERATOR Work Phone: [facility] 12-19-2022 13:54-0400 Systolic blood pressure 120 mm[Hg] Melanie Podlogar HVAC ESTIMATOR.PROFILE STITCHING MACHINE OPERATOR Work Phone: [facility] 10-07-2022 12:50-0500 Diastolic blood pressure 74 mm[Hg] [facility] Work Phone: 10-07-2022 12:50-0500 Heart rate 57 /min [facility] Work Phone: 10-07-2022 12:50-0500 Systolic blood pressure 125 mm[Hg] [facility] Work Phone: 10-07-2022 12:35-0500 Respiratory rate 19 /min [facility] Work Phone: 10-07-2022 12:35-0500 SaO2% (BldA) [Mass fraction] 96 % [facility] Work Phone: 10-07-2022 11:02-0500 Body height 170.[address] [facility] Work Phone: 10-07-2022 11:02-0500 Body mass index (BMI) [Ratio] 26.3 kg/m2 [facility] Work Phone: 10-07-2022 11:02-0500 Body temperature 97.8 [degF] [facility] Work Phone: 10-07-2022 11:02-0500 Body weight 76.[address] [facility] Work Phone: 10-07-2022 10:08-0500 Body weight 76.3 kg Samuel Foy MD Work Phone: [facility] 10-07-2022 10:08-0500 Diastolic blood pressure 70 mm[Hg] Samuel Foy MD Work Phone: [facility] 10-07-2022 10:08-0500 Heart rate 55 /min Samuel Foy MD Work Phone: [facility] 10-07-2022 10:08-0500 Respiratory rate 16 /min Samuel Foy MD Work Phone: [facility] 10-07-2022 10:08-0500 SaO2% (BldA) [Mass fraction] 95 % Samuel Foy MD Work Phone: [facility] 10-07-2022 10:08-0500 Systolic blood pressure 118 mm[Hg] Samuel Foy MD Work Phone: [facility] 08-11-2022 10:56-0400 Body height 170.2 cm Naif Graves MD Work Phone: [facility] 08-11-2022 10:56-0400 Body weight 79.38 kg Naif Graves MD Work Phone: [facility] 08-11-2022 10:56-0400 Diastolic blood pressure 66 mm[Hg] Naif Graves MD Work Phone: [facility] 08-11-2022 10:56-0400 Systolic blood pressure 139 mm[Hg] Naif Graves MD Work Phone: [facility] 07-18-2022 09:54-0400 Body height 170.2 cm Samantha [place] DO Work Phone: [facility] 07-18-2022 09:54-0400 Body weight 77.11 kg Samantha [place] DO Work Phone: [facility] 07-18-2022 09:54-0400 Diastolic blood pressure 78 mm[Hg] Samantha [place] DO Work Phone: [facility] 07-18-2022 09:54-0400 Heart rate 63 /min Samantha [place] DO Work Phone: [facility] 07-18-2022 09:54-0400 SaO2% (BldA) [Mass fraction] 99 % Samantha [place] DO Work Phone: [facility] 07-18-2022 09:54-0400 Systolic blood pressure 139 mm[Hg] Samantha Ellsworth O Work Phone: [facility] 05-04-2022 16:14-0400 Diastolic blood pressure 64 mm[Hg] Samuel Foy MD Work Phone: [facility] 05-04-2022 16:14-0400 Systolic blood pressure 136 mm[Hg] Samuel Foy MD Work Phone: [facility] 05-04-2022 15:36-0400 Body weight 75.93 kg Samuel Foy MD Work Phone: [facility] 05-04-2022 15:36-0400 Heart rate 60 /min Samuel Foy MD Work Phone: [facility] 05-04-2022 15:36-0400 Respiratory rate 18 /min Samuel Foy MD Work Phone: [facility] 05-04-2022 15:36-0400 SaO2% (BldA) [Mass fraction] 97 % Samuel Foy MD Work Phone: [facility] 04-07-2022 07:11-0400 Body temperature 97.5 [degF] Dr. Rush Foy Work Phone: [facility] Work Phone: 04-07-2022 07:11-0400 Diastolic blood pressure 74 mm[Hg] Dr. Rush Foy Work Phone: [facility] Work Phone: 04-07-2022 07:11-0400 Heart rate 61 /min Dr. Rush Foy Work Phone: [facility] Work Phone: 04-07-2022 07:11-0400 Respiratory rate 16 /min Dr. Rush Foy Work Phone: [facility] Work Phone: 04-07-2022 07:11-0400 SaO2% (BldA) [Mass fraction] 96 % Dr. Rush Foy Work Phone: [facility] Work Phone: 04-07-2022 07:11-0400 Systolic blood pressure 141 mm[Hg] Dr. Rush Foy Work Phone: [facility] Work Phone: 04-07-2022 05:48-0400 Body height 170.[address] Rush Foy Work Phone: [facility] Work Phone: 04-07-2022 05:48-0400 Body mass index (BMI) [Ratio] 26.2 kg/m2 Dr. Rush Foy Work Phone: [facility] Work Phone: 04-07-2022 05:48-0400 Body weight [address] Rush Foy Work Phone: [facility] Work Phone: 03-21-2022 16:51-0400 Body weight 76.75 kg Samuel Foy MD Work Phone: [facility] 03-21-2022 16:51-0400 Diastolic blood pressure 84 mm[Hg] Samuel Foy MD Work Phone: [facility] 03-21-2022 16:51-0400 Heart rate 53 /min Samuel Foy MD Work Phone: [facility] 03-21-2022 16:51-0400 Respiratory rate 16 /min Samuel Foy MD Work Phone: [facility] 03-21-2022 16:51-0400 SaO2% (BldA) [Mass fraction] 97 % Samuel Foy MD Work Phone: [facility] 03-21-2022 16:51-0400 Systolic blood pressure 128 mm[Hg] Samuel Foy MD Work Phone: [facility] 01-31-2022 14:39-0400 Body height 170.2 cm Jorge Noonan MD Work Phone: [facility] 01-31-2022 14:39-0400 Body weight 81.65 kg Jorge Noonan MD Work Phone: [facility] 01-31-2022 14:39-0400 Diastolic blood pressure 104 mm[Hg] Jorge Noonan MD Work Phone: [facility] 01-31-2022 14:39-0400 Heart rate 57 /min Jorge Noonan MD Work Phone: [facility] 01-31-2022 14:39-0400 SaO2% (BldA) [Mass fraction] 99 % Jorge Noonan MD Work Phone: [facility] 01-31-2022 14:39-0400 Systolic blood pressure 193 mm[Hg] Jorge Noonan MD Work Phone: [facility] Encounters Encounter Date Encounter Type Care Provider Facility Start: 03-03-2025 End: 03-03-2025 Refill Samuel Foy MD Work Phone: [facility] Comment on above: Refill Request Start: 02-23-2025 End: 02-24-2025 Refill Lelo Grace HVAC ESTIMATOR.PROFILE STITCHING MACHINE OPERATOR Work Phone: [facility] Comment on above: Refill Request Start: 02-13-2025 End: 02-13-2025 Refill Samuel Foy MD Work Phone: [facility] Comment on above: Refill Request Start: 01-23-2025 End: 01-23-2025 Refill Melanie Livingston APRN.PROFILE STITCHING MACHINE OPERATOR Work Phone: [facility] Comment on above: Refill Request Start: 01-19-2025 End: 01-19-[address] Rush Foy MD Work Phone: [facility] Work Phone: Start: 01-19-2025 End: 01-19-2025 Patient encounter procedure Marlene KAPOOR -Nuclear Medicine, [facility] Work Phone: Start: 01-19-2025 End: 01-19-2025 ambulatory Rush Foy Facility: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; Impaired fasting glucose; Overweight (BMI 25.0-29.9); Abdominal aortic aneurysm (AAA) without rupture, unspecified part; History of abdominal aortic aneurysm (AAA) repair Start: 01-09-2025 End: 01-09-2025 ambulatory SAMUEL FOY Facility:[facility] Start: 12-16-2024 End: 12-16-2024 Patient encounter procedure Marlene KAPOOR -[facility] Work Phone: Start: 12-16-2024 End: 12-16-2024 ambulatory Rush Foy Facility:[facility] Start: 12-04-2024 Non-patient / Non-visit Carlton Cheney nd DO -[facility] Start: 12-04-2024 End: 12-04-2024 Admission to same day surgery center Carlton Moran DO -Endoscopy Work Phone: Start: 12-04-2024 End: 12-04-2024 ambulatory Rush Foy Facility:[facility] Start: 11-19-2024 End: 11-19-2024 Patient encounter procedure Marlene KAPOOR -[facility] Work Phone: Start: 11-19-2024 End: 11-19-2024 ambulatory Rush Foy Facility:[facility] Start: 11-11-2024 End: 11-11-2024 Refill Samuel Foy MD Work Phone: [facility] Comment on above: Refill Request Start: 11-10-2024 End: 11-10-2024 ambulatory SAMUEL FOY Facility:[facility] Start: 11-10-2024 End: 11-10-2024 Patient encounter procedure Naif Graves MD Work Phone: Vascular Surgery Comment on above: History of abdominal aortic aneurysm (AAA) repair (Primary Dx) Start: 11-05-2024 End: 11-05-2024 Telephone encounter Samuel Foy MD Work Phone: [facility] [place] Comment on above: Results Start: 11-04-2024 End: 11-04-2024 ambulatory SAMUEL FOY Facility:[facility] Start: 11-04-2024 End: 11-04-2024 Patient encounter procedure Samuel Foy MD Work Phone: [facility] [place] Comment on above: RSV infection (Prima ry Dx); Nausea and vomiting, unspecified vomiting type; Gastroesophageal reflux disease, unspecified whether esophagitis present; Coffee ground emesis; History of gastric ulcer Start: 10-27-2024 End: 10-27-2024 Refill Samuel Foy MD Work Phone: [facility] [place] Comment on above: Refill Request Start: 10-26-2024 End: 10-27-2024 Emergency department patient visit Freddy Valle DO -Emergency Department Work Phone: Start: 10-25-2024 End: 10-27-2024 Refill Melanie Podlogar HVAC ESTIMATOR.PROFILE STITCHING MACHINE OPERATOR Work Phone: [facility] [place] Comment on above: Refill Request Start: 10-21-2024 End: 10-21-2024 ambulatory SAMUEL FOY Facility:[facility] Start: 10-21-2024 End: 10-21-2024 Subsequent hospital visit by physician [facility] (I-Stat) Work Phone: Cat Scan Comment on above: Abdominal aortic ane urysm (AAA) without rupture, unspecified part (HCC) [I71.40] Start: 10-02-2024 End: 10-02-2024 Refill Melanie Podlogar HVAC ESTIMATOR.PROFILE STITCHING MACHINE OPERATOR Work Phone: [facility] [place] Comment on above: Refill Request Start: 08-28-2024 End: 08-28-2024 Refill Melanie Podlogar HVAC ESTIMATOR.PROFILE STITCHING MACHINE OPERATOR Work Phone: [facility] [place] Comment on above: Refill Request Start: 08-24-2024 End: 08-25-2024 Refill Melanie Podlogar HVAC ESTIMATOR.PROFILE STITCHING MACHINE OPERATOR Work Phone: [facility] [place] Comment on above: Refill Request Start: 08-22-2024 End: 08-22-2024 Orders Only Naif Graves MD Work Phone: Vascular Surgery Comment on above: Abdominal aortic ane urysm (AAA) without rupture, unspecified part (HCC) (Primary Dx) Start: 08-01-2024 End: 08-01-2024 Refill Samuel Foy MD Work Phone: [facility] [place] Comment on above: Refill Request Start: 07-15-2024 End: 07-15-2024 Telephone encounter Samuel Foy MD Work Phone: [facility] [place] Comment on above: Results Start: 07-14-2024 End: 07-14-2024 ambulatory MELANIE PODLOGAR Facility:[facility] Start: 07-11-2024 End: 07-11-2024 Patient encounter procedure Melanie Podlogluly HVAC ESTIMATOR.PROFILE STITCHING MACHINE OPERATOR Work Phone: [facility] [place] Comment on above: Essential hypertensi on (Primary Dx); Gout, unspecified cause, unspecified chronicity, unspecified site; Infrarenal abdominal aortic aneurysm (AAA) without rupture (HCC); Mixed hyperlipidemia; 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, unspecified vessel or lesion type; Encounter for immunization Start: 07-11-2024 End: 07-11-2024 ambulatory SAMUEL FOY Facility:[facility] Start: 07-08-2024 End: 07-18-2024 Telephone encounter Samuel Foy MD Work Phone: [facility] [place] Comment on above: Results Start: 07-03-2024 End: 07-03-2024 Telephone encounter Samuel Foy MD Work Phone: [facility] [place] Comment on above: Results Start: 07-02-2024 End: 07-02-2024 Patient encounter procedure Samuel Foy MD Work Phone: [facility] [place] Comment on above: Diarrhea, unspecifie d type (Primary Dx) Start: 07-02-2024 End: 07-02-2024 ambulatory SAMUEL FOY Facility:[facility] Start: 06-23-2024 End: 06-23-2024 Subsequent hospital visit by physician Shreya [facility] [place] Work Phone: Radiology Comment on above: Acute cough [R05.1] Start: 06-23-2024 End: 06-23-2024 ambulatory SAMUEL FOY Facility:[facility] Start: 06-23-2024 End: 06-23-2024 Patient encounter procedure Ganesh DUKE Work Phone: [facility] Comment on above: Acute cough (Primary Dx); Diarrhea, unspecified type Start: 05-11-2024 Refill Samuel Foy MD Work Phone: [facility] [place] Comment on above: Refill Request Start: 05-08-2024 Telephone encounter Harsh stephens APRN.PROFILE STITCHING MACHINE OPERATOR Work Phone: [facility] Comment on above: Results Start: 05-07-2024 End: 05-07-2024 Subsequent hospital visit by physician Xr [facility] [place] Work Phone: Radiology Comment on above: Acute cough [R05.1] Start: 05-07-2024 End: 05-07-2024 ambulatory SAMUEL FOY Facility:[facility] Start: 05-07-2024 End: 05-07-2024 Patient encounter procedure Ana Herrera HVAC ESTIMATOR.PROFILE STITCHING MACHINE OPERATOR Work Phone: [facility] Comment on above: Acute cough (Primary Dx); URI, acute Start: 03-27-2024 Refill Melanie Livingston APRN.PROFILE STITCHING MACHINE OPERATOR Work Phone: [facility] [place] Comment on above: Refill Request Start: 03-06-2024 Refill Melanie Livingston APRN.PROFILE STITCHING MACHINE OPERATOR Work Phone: [facility] [place] Comment on above: Refill Request Start: 02-29-2024 Refill Samuel Foy MD Work Phone: [facility] [place] Comment on above: Refill Request Start: 02-23-2024 Refill Samuel Foy MD Work Phone: [facility] [place] Comment on above: Refill Request Start: 02-03-2024 Refill Samuel Foy MD Work Phone: [facility] [place] Comment on above: Refill Request Start: 01-21-2024 Refkarsten Foy MD Work Phone: [facility] Comment on above: Refill Request Start: 01-09-2024 End: 01-09-2024 Patient encounter procedure Melanie Livingston APRN.PROFILE STITCHING MACHINE OPERATOR Work Phone: [facility] Comment on above: Essential hypertensi on (Primary Dx); Anemia, unspecified type; Gout, unspecified cause, unspecified chronicity, unspecified site; Screening for depression; 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); Infrarenal abdominal aortic aneurysm (AAA) without rupture (HCC); Mixed hyperlipidemia; 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, unspecified vessel or lesion type Start: 01-06-2024 Refill Samuel Foy MD Work Phone: [facility] Comment on above: Refill Request Start: 11-10-2023 Refill Lelo bertrand APRN.PROFILE STITCHING MACHINE OPERATOR Work Phone: [facility] Comment on above: Refill Request Start: 09-10-2023 Refill Samuel Foy MD Work Phone: [facility] Comment on above: Refill Request Start: 09-05-2023 End: 09-10-2023 Evaluation and management of inpatient SAMUEL FOY Facility:[facility] Start: 08-27-2023 Telephone encounter Naif pool MD Work Phone: Vascular Surgery Comment on above: Schedule Surgery Start: 08-24-2023 End: 08-24-2023 Orders Only Naif Graves MD Work Phone: Vascular Surgery Comment on above: Infrarenal abdominal aortic aneurysm (AAA) without rupture (HCC) (Primary Dx) Refill Request Start: 08-21-2023 End: 08-21-2023 Refill Samuel Foy MD Work Phone: [facility] Comment on above: Refill Request Encounter for other preprocedural examination [Z01.818] Start: 08-21-2023 Encounter for other preprocedural examination UNKNOWN PROVIDER [facility] Start: 08-21-2023 End: 08-21-2023 Patient encounter status Mfi 2 Work Phone: [facility] Start: 08-17-2023 End: 08-17-2023 Orders Only Naif Graves MD Work Phone: Vascular Surgery Comment on above: Encounter for other preprocedural examination (Primary Dx) Infrarenal abdominal aortic aneurysm (AAA) without rupture (HCC) (Primary Dx) Start: 08-17-2023 Patient encounter status Naif Graves MD Work Phone: [facility] Start: 08-13-2023 End: 08-13-[address] (I-Stat) Work Phone: [facility] Start: 08-13-2023 End: 08-13-2023 Subsequent hospital visit by physician [facility] (I-Stat) Work Phone: Cat Scan Comment on above: Encounter for other preprocedural examination [Z01.818] Start: 07-30-2023 End: 07-30-2023 Patient encounter procedure Mar Bright PA-C Work Phone: Orthopaedics Comment on above: Trigger index finger of right hand (Primary Dx) Start: 07-23-2023 Refill Melanie Livingston HVAC ESTIMATOR.PROFILE STITCHING MACHINE OPERATOR Work Phone: [facility] [place] Comment on above: Refill Request Start: 06-30-2023 Refill Melanie Livingston HVAC ESTIMATOR.PROFILE STITCHING MACHINE OPERATOR Work Phone: [facility] [place] Comment on above: Refill Request Start: 06-04-2023 Telephone encounter Bo meng MD Work Phone: Orthopaedics Comment on above: Schedule Surgery Start: 06-04-2023 End: 06-04-2023 Patient encounter procedure Bo Davis MD Work Phone: Orthopaedics Comment on above: Trigger index finger of right hand (Primary Dx) Start: 05-30-2023 Refill Lelo bertrand HVAC ESTIMATORAlexanderPROFILE STITCHING MACHINE OPERATOR Work Phone: [facility] [place] Comment on above: Refill Request Start: 05-15-2023 Refill Samuel Foy MD Work Phone: [facility] Comment on above: Refill Request Start: 04-28-2023 Refill Melanie Podlogar HVAC ESTIMATOR.PROFILE STITCHING MACHINE OPERATOR Work Phone: [facility] Comment on above: Refill Request Start: 04-21-2023 Refill Melanie Podlogar HVAC ESTIMATOR.PROFILE STITCHING MACHINE OPERATOR Work Phone: [facility] [place] Comment on above: Refill Request Start: 03-06-2023 Refill Samuel Foy MD Work Phone: [facility] Comment on above: Refill Request Start: 02-19-2023 End: 02-19-2023 Patient encounter procedure Melanie Podlogar HVAC ESTIMATOR.PROFILE STITCHING MACHINE OPERATOR Work Phone: [facility] Comment on above: APPOINTMENT CANCELLE D (Primary Dx) Start: 02-17-2023 Refill Samuel Foy MD Work Phone: [facility] Comment on above: Refill Request Start: 02-14-2023 Orders Only Naif bertrand MD Work Phone: Vascular Surgery Comment on above: Infrarenal abdominal aortic aneurysm (AAA) without rupture (HCC) (Primary Dx) Start: 02-04-2023 Refill Melanie Podlogar HVAC ESTIMATOR.PROFILE STITCHING MACHINE OPERATOR Work Phone: [facility] Comment on above: Refill Request Start: 01-22-2023 Refill Samuel Foy MD Work Phone: [facility] Comment on above: Refill Request Start: 01-16-2023 Orders Only Naif bertrand MD Work Phone: Vascular Surgery Comment on above: Abdominal aortic ane urysm (AAA) without rupture, unspecified part (HCC) (Primary Dx) Start: 12-24-2022 Refill Melanie Podlogar HVAC ESTIMATOR.PROFILE STITCHING MACHINE OPERATOR Work Phone: [facility] Comment on above: Refill Request Start: 12-20-2022 Telephone encounter Melanie Ledbetter ogluly HVAC ESTIMATOR.PROFILE STITCHING MACHINE OPERATOR Work Phone: [facility] Comment on above: Results Start: 12-19-2022 End: 12-19-2022 Patient encounter procedure Melanie Podlogully HVAC ESTIMATOR.PROFILE STITCHING MACHINE OPERATOR Work Phone: [facility] Comment on above: Primary hypertension (Primary Dx); Idiopathic chronic gout without tophus, unspecified site; Encounter for immunization; Abdominal aortic aneurysm (AAA) without rupture, unspecified part (HCC); 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, unspecified vessel or lesion type; Mixed hyperlipidemia Start: 12-08-2022 Refill Melanie Podlogar HVAC ESTIMATOR.PROFILE STITCHING MACHINE OPERATOR Work Phone: [facility] Comment on above: Refill Request Start: 11-20-2022 Telephone encounter Rush Foy MD Work Phone: [facility] Comment on above: Results Start: 11-13-2022 Refill Samuel Foy MD Work Phone: [facility] Comment on above: Refill Request Start: 10-07-2022 End: 10-07-2022 [facility] Start: 10-07-2022 End: 10-07-2022 Patient encounter procedure Samuel Foy MD Work Phone: [facility] Comment on above: Gastrointestinal hem orrhage, unspecified gastrointestinal hemorrhage type (Primary Dx); Diarrhea, unspecified type Start: 09-27-2022 Refill Melanie Podlogar HVAC ESTIMATOR.PROFILE STITCHING MACHINE OPERATOR Work Phone: [facility] Comment on above: Refill Request Start: 08-11-2022 End: 08-11-2022 Refill Samuel Foy MD Work Phone: [facility] Comment on above: Infrarenal abdominal aortic aneurysm (AAA) without rupture (Primary Dx) Start: 08-08-2022 Telephone encounter Naif pool MD Work Phone: Vascular Surgery Comment on above: Appointment Confirma tion Start: 08-03-2022 Refill Samuel Foy MD Work Phone: [facility] Comment on above: Refill Request Start: 07-18-2022 End: 07-18-2022 Patient encounter procedure Samantha Houston DO Work Phone: Vascular Surgery Comment on above: Encounter for other preprocedural examination (Primary Dx); Infrarenal abdominal aortic aneurysm (AAA) without rupture; Screening for nephropathy Start: 07-18-2022 End: 07-18-2022 Patient encounter status Samantha Houston DO Work Phone: Vascular Surgery Start: 07-14-2022 Refill Melanie Podlogar HVAC ESTIMATOR.PROFILE STITCHING MACHINE OPERATOR Work Phone: [facility] [place] Comment on above: Refill Request Start: 07-03-2022 Refill Melanie Podlogar HVAC ESTIMATOR.PROFILE STITCHING MACHINE OPERATOR Work Phone: [facility] [place] Comment on above: Refill Request Start: 07-01-2022 End: 07-01-2022 ambulatory [facility] [place] Work Phone: [facility] [place] Start: 06-18-2022 ambulatory Samuel Foy MD Work Phone: [facility] [place] Comment on above: blood pressures Start: 06-17-2022 Refill Melanie Podlogar HVAC ESTIMATOR.PROFILE STITCHING MACHINE OPERATOR Work Phone: [facility] [place] Comment on above: Refill Request Start: 06-07-2022 ambulatory Samuel Foy MD Work Phone: [facility] [place] Comment on above: blood pressure Start: 06-03-2022 Refill Melanie Podlogar HVAC ESTIMATOR.PROFILE STITCHING MACHINE OPERATOR Work Phone: [facility] [place] Comment on above: Refill Request Start: 05-05-2022 Telephone encounter Rush Foy MD Work Phone: [facility] [place] Comment on above: Results Start: 05-05-2022 End: 05-05-2022 Subsequent hospital visit by physician [facility] Work Phone: Radiology Comment on above: Abdominal aortic ane urysm (AAA) without rupture (HCC) [I71.4] Start: 05-04-2022 End: 05-04-2022 Refill Melanie Podlogar HVAC ESTIMATOR.PROFILE STITCHING MACHINE OPERATOR Work Phone: [facility] Comment on above: Refill Request Abdominal aortic ane urysm (AAA) without rupture (HCC) (Primary Dx); 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; 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; Essential hypertension; Multani's esophagus with dysplasia; Duodenal stricture; Mixed hyperlipidemia Start: 04-27-2022 Refill Melanie Podlogar HVAC ESTIMATOR.PROFILE STITCHING MACHINE OPERATOR Work Phone: [facility] Comment on above: Refill Request Start: 04-07-2022 Refill Samuel Foy MD Work Phone: [facility] Comment on above: Refill Request Start: 04-07-2022 Non-patient / Non-visit Dr. Jumana Foy Work Phone: [facility] Start: 04-07-2022 End: 04-07-2022 Admission to same day surgery center Dr. Rush Foy Work Phone: [facility]-Endoscopy Start: 03-24-2022 Telephone encounter Rush Foy MD Work Phone: [facility] Comment on above: Results Start: 03-22-2022 End: 03-22-[address] Rush Foy Work Phone: [facility] Start: 03-21-2022 End: 03-21-2022 Patient encounter procedure Samuel Foy MD Work Phone: [facility] Comment on above: Acute idiopathic gou t involving toe of left foot (Primary Dx); Gout, unspecified cause, unspecified chronicity, unspecified site; Mixed hyperlipidemia; Need for COVID-19 vaccine Start: 03-17-2022 Refill Melanie Podlogar HVAC ESTIMATOR.PROFILE STITCHING MACHINE OPERATOR Work Phone: [facility] Comment on above: Refill Request Start: 03-14-2022 Refill Melanie Podlogar HVAC ESTIMATOR.PROFILE STITCHING MACHINE OPERATOR Work Phone: [facility] Comment on above: Refill Request Start: 03-14-2022 End: 03-14-[address] Rush Foy Work Phone: [facility] Start: 02-03-2022 Telephone encounter Jorge Noonan MD Work Phone: [facility] Comment on above: Appointment ([facility] ED WITH GASTRO BRIAN HEAD ON 03/14/22 @ 1:45PM) Start: 01-31-2022 End: 01-31-2022 Patient encounter procedure Jorge Noonan MD Work Phone: [facility] DEPART[facility] Comment on above: Duodenal stricture ( Primary Dx) Start: 01-09-2022 Orders Only Hina fuentes MD Work Phone: General Surgery Comment on above: Screening for nephro mamta (Primary Dx); Abnormal findings on diagnostic imaging of other parts of digestive tract Start: 12-30-2021 Telephone encounter Kasey porras PA-C Work Phone: General Surgery Comment on above: Referral Information (duodenal stricture) Start: 12-09-2021 ambulatory PAC RENE CHIN [facility] ility:[id number] Start: 12-05-2021 Chart Update Samuel Foy Work Phone: [facility] G[facility] Work Phone: Start: 11-23-2021 Other Samuel Foy Work Phone: [facility] Work Phone: Start: 09-26-2021 End: 09-26-2021 Subsequent hospital visit by physician Xr [facility] [place] Work Phone: Radiology Comment on above: Reggie [R09.89] Start: 04-14-2021 Phys/qhp telephone evaluation 11-20 min Samuel Foy Work Phone: [facility] [id number] Work Phone: Start: 06-21-2020 Patient encounter procedure Che Arora [facility] [address] Work Phone: Start: 05-28-2020 Patient encounter procedure Che KABA-[facility] [facility] Work Phone: Start: 02-18-2020 Patient encounter procedure Che Arora [facility] [address] Work Phone: Start: 07-10-2019 Patient encounter procedure Che Arora [facility] [facility] Work Phone: Procedures Date Procedure Procedure Detail Performing Clinician Start: 01-19-[address] empt[address] study Dr[address] Rush Foy MD Work Phone: Start: 01-09-2025 PFIZER-BIONTECH COVID-19 VACCINE AGE 12+ YR (COMIRNATY) Samuel Foy MD Work Phone: Start: 10-26-2024 Computed tomography of abdomen and pelvis with contrast Dr. Rush Foy MD Work Phone: Start: 10-26-2024 Plain chest X-ray Dr. Rush Foy MD Work Phone: Start: 10-26-2024 Measurement of occult blood in stool specimen using immunoassay Dr. Rush Foy MD Work Phone: Start: 10-26-2024 SARS-CoV-2, Influenza & RSV (PCR) Dr. Jumana Foy MD Work Phone: Start: 10-21-2024 Ct angio abd&plvis cntrst mtrl w/wo cntrst img Naif Graves MD Work Phone: Start: 07-14-2024 Lipid 1996 panel - Serum or Plasma Sukhwinder Foy MD Work Phone: Start: 07-11-2024 PFIZER-BIONTECH COVID-19 VACCINE AGE 12+ YR (COMIRNATY) Melanie Livingston APRN.CNP Work Phone: Start: 06-23-2024 Radiologic exam chest 2 views Ganesh DUKE Work Phone: Start: 05-07-2024 Radiologic exam chest 2 views Anagricelda Arias ggs HVAC ESTIMATOR.PROFILE STITCHING MACHINE OPERATOR Work Phone: Start: 08-21-2023 Myocardial spect multiple studies Naif hopper MD Work Phone: Start: 08-13-2023 Ct angio abd&plvis cntrst mtrl w/wo cntrst img Naif Graves MD Work Phone: Start: 07-10-2023 Lipid 1996 panel - Serum or Plasma Melanie Shenlogluly HVAC ESTIMATOR.PROFILE STITCHING MACHINE OPERATOR Work Phone: Start: 06-04-2023 Injection 1 tendon sheath/ligament aponeurosis Bo Davis MD Work Phone: Start: 12-19-2022 PFIZER-BIONTECH COVID-19 BIVALENT BOOSTER VACCINE, AGE 12+ YR Melanie Shenlogar HVAC ESTIMATOR.PROFILE STITCHING MACHINE OPERATOR Work Phone: Start: 10-07-2022 Computed tomography of abdomen and pelvis with intravenous contrast Start: 07-01-2022 INFLUENZA SEASONAL QUADRIVALENT HIGH DOSE AGE 65+ Troy Diggs MD Work Phone: Start: 05-05-2022 Us retroperitoneal real time w/image limited Samuel Foy MD Work Phone: Start: 04-07-[address] Marty Foy Work Phone: Start: 03-23-2022 Lipid 1996 panel - Serum or Plasma Andressa Davis MD Work Phone: Start: 03-22-2022 CT of abdomen with contrast Dr. Antonino Foy Work Phone: Start: 03-21-2022 PFIZER-BIONTECH COVID-19 VACCINE, AGE 12+ YR (MILLER TOP) Samuel Foy MD Work Phone: Start: 09-26-2021 Radiologic exam chest 2 views Harsh stephens HVAC ESTIMATOR.PROFILE STITCHING MACHINE OPERATOR Work Phone: Start: 12-13-2020 Adult depression screening assessment Kasey Babcock PA-C Work Phone: Start: 11-11-2020 Basic metabolic 1998 panel - Serum or Plasma Che Arora Start: 11-11-2020 Ct angio abd&plvis cntrst mtrl w/wo cntrst img Che Arora Start: 11-10-2020 Assay of urea nitrogen quantitative Lenard Arora Start: 11-10-2020 Creatinine blood Che Arora Start: 11-10-2020 Immunoassay tumor antigen quantitative ca 19-9 Che Arora Start: 11-10-2020 Mri abdomen w/o & w/contrast material Che Arora Start: 07-28-2020 Colonoscopy Kasey Babcock PA-C Work Phone: Plan of Treatment Date Care Activity Detail Author Start: 07-11-2034 Urine microalbumin profile DTaP,Tdap,Td Vaccine (3 - Td or Tdap) [facility] Start: 07-28-2030 Colonoscopy COLONOSCOPY [facility] Start: 07-28-2030 COLORECTAL CANCER SCREENING COLORECTAL CANCER SCREENING [facility] Start: 07-28-2030 Screening for malign ant neoplasm of colon [facility] Start: 07-14-2029 Lipid panel Lipid Screening [facility] Start: 07-10-2028 Lipid 1996 panel - Serum or Plasma Lipid Screening [facility] Start: 07-10-2028 Lipid panel Lipid Screening [facility] Start: 11-04-2027 Diabetes Screening Diabetes Screenin g [facility] Start: 07-02-2027 Diabetes Screening Diabetes Screenin g [facility] Start: 03-23-2027 Lipid 1996 panel - Serum or Plasma Lipid Screening [facility] Start: 03-23-2027 LIPID SCREEN LIPID SCREEN [facility] Start: 01-08-2027 Diabetes Screening Diabetes Screenin g [facility] Start: 09-10-2026 Diabetes Screening Diabetes Screenin g [facility] Start: 08-25-2026 Diabetes Screening Diabetes Screenin g [facility] Start: 07-10-2026 Diabetes Screening Diabetes Screenin g [facility] Start: 01-09-2026 Annual PCP Team Machine Lacer armand Disease Visit Annual PCP Team Chronic Disease Visit [facility] Start: 01-09-2026 BP Controlled (<130/80) BP Controlle d (<130/80) [facility] Start: 12-09-2025 LIPID SCREEN LIPID SCREEN [facility] Start: 11-20-2025 DIABETES SCREEN [facility]EN [facility] Start: 11-20-2025 Diabetes Screening Diabetes Screenin g [facility] Start: 11-10-2025 BP Controlled (<130/80) BP Controlle d (<130/80) [facility] Start: 11-05-2025 Screening for malign ant neoplasm of colon Fecal Occult Blood [facility] Start: 11-04-2025 Annual PCP Team Machine Lacer armand Disease Visit Annual PCP Team Chronic Disease Visit [facility] Start: 11-04-2025 BP Controlled (<130/80) BP Controlle d (<130/80) [facility] Start: 07-14-2025 Hepatitis B surface antibody level LDL Cholesterol [facility] Start: 07-11-2025 Annual PCP Team Machine Lacer armand Disease Visit Annual PCP Team Chronic Disease Visit [facility] Start: 07-11-2025 BP Controlled (<130/80) BP Controlle d (<130/80) [facility] Start: 07-10-2025 End: 07-10-2025 Patient encounter procedure 07/10/2025 7:00 AM EDT Office Visit Family Rafat [facility] [address] [place] [place] [address] Samuel Foy MD [address] [place] [id number] 6 month follow up Family [facility]at [facility] Comment on above: 6 month follow up Start: 07-02-2025 Annual PCP Team Machine Lacer armand Disease Visit Annual PCP Team Chronic Disease Visit [facility] Start: 06-23-2025 BP Controlled (<130/80) BP Controlle d (<130/80) [facility] Start: 05-04-2025 DIABETES SCREEN DIABETES SCREEN [facility] Start: 01-09-2025 End: 01-09-2025 Patient encounter procedure 01/09/2025 7:20 AM EDT Office Visit Family Rafat Lester [address] [place] [id number] Samuel Foy MD [address] [place] [id number] 6 month follow up [facility] [place] Comment on above: 6 month follow up Start: 01-08-2025 Annual PCP Team Machine Lacer armand Disease Visit Annual PCP Team Chronic Disease Visit [facility] Start: 01-08-2025 BP Controlled (<130/80) BP Controlle d (<130/80) [facility] Start: 12-04-2024 Egd transoral biopsy single/multiple EGD BIOPSY SINGLE/MULTIPLE [facility] Start: 12-04-2024 Patient discharge [facility] Start: 11-10-2024 End: 11-10-2024 Patient encounter procedure 11/10/2024 12:30 PM EST Office Visit Vascular Surgery [address] [place] [id number] Naif Graves MD [address] [place], [place] [phone] 1 YEAR FOLLOW UP Vascular Surgery Comment on above: 1 YEAR FOLLOW UP Start: 11-04-2024 End: 02-03-2025 CBC W Auto Differential panel - Blood [facility] Work Phone: Comment on above: Expected: 11/04/2024 , Expires: 02/03/2025 Start: 11-04-2024 End: 02-03-2025 Comprehensive metabolic 2000 panel - Serum or Plasma [facility] Comment on above: Expected: 11/04/2024 , Expires: 02/03/2025 Start: 11-04-2024 DIABETES SCREEN DIABETES SCREEN [facility] Start: 10-27-2024 End: 10-27-2024 Patient encounter procedure 10/27/2024 1:00 PM EST Office Visit Vascular Surgery [address] [place] [id number] [place] [address] [address] [place], [place] [id number] 1 YEAR FOLLOW UP Vascular Surgery Comment on above: 1 YEAR FOLLOW UP Start: 10-27-2024 [facility] Start: 10-21-2024 End: 10-21-2024 Patient encounter procedure 10/21/2024 9:00 AM EST Appointment Cat Scan [address] [place] [address] 1 YEAR FOLLOW UP Cat Scan Comment on above: 1 YEAR FOLLOW UP Start: 10-15-2024 BP Controlled (<130/80) BP Controlle d (<130/80) [facility] Start: 08-24-2024 BP Controlled (<130/80) BP Controlle d (<130/80) 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 Start: 07-10-2024 Hepatitis B surface antibody level LDL Cholesterol [facility] Start: 07-02-2024 End: 10-01-2024 CBC W Auto Differential panel - Blood [facility] Work Phone: Comment on above: Expected: 07/02/2024 , Expires: 10/01/2024 Start: 07-02-2024 End: 10-01-2024 Comprehensive metabolic 2000 panel - Serum or Plasma [facility] Comment on above: Expected: 07/02/2024 , Expires: 10/01/2024 Start: 06-08-2024 Covid-19 Vaccine () Covid-19 Vaccine () [facility] Start: 06-08-2024 Covid-19 Vaccine ( season) Covid-19 Vaccine ( season) [facility] Start: 06-08-2024 Influenza vaccination Influenza Vacc ine (#1) [facility] Start: 05-07-2024 End: 05-21-2024 COVID & INFLUENZA A/B & RSV NAAT, ROUTINE COVID & INFLUENZA A/B & RSV NAAT, ROUTINE Microbiology Routine Acute cough URI, acute Expected: 05/07/2024, Expires: 05/21/2024 [facility] Work Phone: Comment on above: Expected: 05/07/2024 , Expires: 05/21/2024 Start: 02-20-2024 ANNUAL PCP TEAM ANDROID IOS DEVELOPER ARMAND DISEASE VISIT ANNUAL PCP TEAM CHRONIC DISEASE VISIT [facility] Start: 12-20-2023 ANNUAL PCP TEAM ANDROID IOS DEVELOPER ARMAND DISEASE VISIT ANNUAL PCP TEAM CHRONIC DISEASE VISIT [facility] Start: 12-20-2023 BP CONTROLLED (<130/80) BP CONTROLLE D (<130/80) [facility] Start: 11-20-2023 ANNUAL PCP TEAM ANDROID IOS DEVELOPER ARMAND DISEASE VISIT ANNUAL PCP TEAM CHRONIC DISEASE VISIT [facility] Start: 11-20-2023 BP CONTROLLED (<130/80) BP CONTROLLE D (<130/80) [facility] Start: 11-10-2023 Covid-19 Vaccine ( season) Covid-19 Vaccine () [facility] Start: 10-08-2023 Behavioral Health Screening Behavioral Health Screening [facility] Start: 10-08-2023 Depression Assessment Depression Ass essment [facility] Start: 10-07-2023 ANNUAL PCP TEAM ANDROID IOS DEVELOPER ARMAND DISEASE VISIT ANNUAL PCP TEAM CHRONIC DISEASE VISIT [facility] Start: 10-07-2023 BP CONTROLLED (<130/80) BP CONTROLLE D (<130/80) [facility] Start: 08-24-2023 End: 11-23-2023 aPTT in Platelet poor plasma by Coagulation assay ACTIVATED PTT Lab Routine Infrarenal abdominal aortic aneurysm (AAA) without rupture (HCC) Expected: 08/24/2023, Expires: 11/23/2023 [facility] Work Phone: Comment on above: Expected: 08/24/2023 , Expires: 11/23/2023 Start: 08-24-2023 End: 11-23-2023 Basic metabolic 2000 panel - Serum or Plasma BASIC METABOLIC PNL Lab Routine Infrarenal abdominal aortic aneurysm (AAA) without rupture (HCC) Expected: 08/24/2023, Expires: 11/23/2023 [facility] Work Phone: Comment on above: Expected: 08/24/2023 , Expires: 11/23/2023 Start: 08-24-2023 End: 11-23-2023 CBC W Auto Differential panel - Blood CBC + DIFF Lab Routine Infrarenal abdominal aortic aneurysm (AAA) without rupture (HCC) Expected: 08/24/2023, Expires: 11/23/2023 [facility] Work Phone: Comment on above: Expected: 08/24/2023 , Expires: 11/23/2023 Start: 08-24-2023 End: 11-23-2023 PT panel - Platelet poor plasma by Coagulation assay PROTHROMBIN TIME/PT Lab Routine Infrarenal abdominal aortic aneurysm (AAA) without rupture (HCC) Expected: 08/24/2023, Expires: 11/23/2023 [facility] Work Phone: Comment on above: Expected: 08/24/2023 , Expires: 11/23/2023 Start: 08-24-2023 End: 11-23-2023 TYPE AND SCREEN,30 DAY TYPE AND SCREEN,30 DAY Blood Bank Routine Infrarenal abdominal aortic aneurysm (AAA) without rupture (HCC) Expected: 08/24/2023, Expires: 11/23/2023 [facility] Work Phone: Comment on above: Expected: 08/24/2023 , Expires: 11/23/2023 Start: 06-08-2023 [facility] Start: 05-04-2023 ANNUAL PCP TEAM ANDROID IOS DEVELOPER ARMAND DISEASE VISIT ANNUAL PCP TEAM CHRONIC DISEASE VISIT [facility] Start: 04-20-2023 COVID-19 VACCINE (6 - Pfizer series) COVID-19 VACCINE (6 - Pfizer series) [facility] Start: 03-23-2023 Hepatitis B surface antibody level LDL CHOLESTEROL [facility] Start: 03-21-2023 ANNUAL PCP TEAM ANDROID IOS DEVELOPER ARMAND DISEASE VISIT ANNUAL PCP TEAM CHRONIC DISEASE VISIT [facility] Start: 03-21-2023 Urine microalbumin profile DTAP,TDAP,TD (2 - Td or Tdap) [facility] Comment on above: Postponed from 03/21 (Declined at this time) Start: 02-14-2023 End: 04-16-2023 CREATININE BLD CREATININE BLD Lab STAT Infrarenal abdominal aortic aneurysm (AAA) without rupture (HCC) Expected: 02/14/2023, Expires: 04/16/2023 [facility] Work Phone: Comment on above: Expected: 02/14/2023 , Expires: 04/16/2023 Start: 12-19-2022 End: 02-18-2023 Urate [Mass/volume] in Serum or Plasma [facility] Work Phone: Comment on above: Expected: 12/19/2022 , Expires: 02/18/2023 Start: 11-04-2022 ANNUAL PCP TEAM ANDROID IOS DEVELOPER ARMAND DISEASE VISIT ANNUAL PCP TEAM CHRONIC DISEASE VISIT [facility] Start: 10-08-2022 ADVANCE DIRECTIVE DISCUSSION ADVANCE DIRECTIVE DISCUSSION [facility] Start: 10-08-2022 DEPRESSION ASSESSMENT DEPRESSION ASS ESSMENT [facility] Start: 06-08-2022 Influenza vaccination INFLUENZA (#1) [facility] Start: 05-16-2022 COVID-19 VACCINE (5 - Booster for Pfizer series) COVID-19 VACCINE (5 - Booster for Pfizer series) [facility] Start: 04-07-2022 Patient discharge [facility] Work Phone: Start: 04-04-2022 End: 06-04-2022 Urate [Mass/volume] in Serum or Plasma URIC ACID BLOOD Lab Routine 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 Gout, unspecified cause, unspecified chronicity, unspecified site Expected: 04/04/2022, Expires: 06/04/2022 [facility] Work Phone: Comment on above: Expected: 04/04/2022 , Expires: 06/04/2022 Start: 03-21-2022 End: 05-21-2022 CBC W Auto Differential panel - Blood CBC + DIFF Lab Routine 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 Expected: 03/21/2022, Expires: 05/21/2022 [facility] Work Phone: Comment on above: Expected: 03/21/2022 , Expires: 05/21/2022 Start: 03-21-2022 End: 05-21-2022 LIPID PANEL, NONFASTING LIPID PANEL, NONFASTING Lab Routine Mixed hyperlipidemia Expected: 03/21/2022, Expires: 05/21/2022 [facility] Work Phone: Comment on above: Expected: 03/21/2022 , Expires: 05/21/2022 Start: 03-21-2022 End: 05-21-2022 Urate [Mass/volume] in Serum or Plasma URIC ACID BLOOD Lab Routine 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 Expected: 03/21/2022, Expires: 05/21/2022 [facility] Work Phone: Comment on above: Expected: 03/21/2022 , Expires: 05/21/2022 Start: 03-21-2022 Urine microalbumin profile [facility] Start: 01-09-2022 End: 03-11-2022 CREATININE BLD CREATININE BLD Lab Routine Screening for nephropathy Expected: 01/09/2022, Expires: 03/11/2022 [facility] Work Phone: Comment on above: Expected: 01/09/2022 , Expires: 03/11/2022 Start: 12-13-2021 Adult depression screening assessment DEPRESSION SCREENING [facility] Start: 12-09-2021 Hepatitis B surface antibody level LDL CHOLESTEROL [facility] Start: 11-21-2021 COVID-19 VACCINE (4 - Booster for Pfizer series) COVID-19 VACCINE (4 - Booster for Pfizer series) [facility] Start: 10-08-2021 ADVANCE DIRECTIVE DISCUSSION ADVANCE DIRECTIVE DISCUSSION [facility] Start: 10-08-2021 DEPRESSION ASSESSMENT DEPRESSION ASS ESSMENT [facility] Start: 11-15-2020 Ct angio abd&plvis cntrst mtrl w/wo cntrst img CT Angio Abdomen Pelvis with Contrast including non cont Image with Post Procedure [facility] Work Phone: Start: 2009 RSV Vaccine (1 - 1-d ose 60+ series) RSV Vaccine (1 - 1-dose 60+ series) [facility] Start: 1994 COLOGUARD (FIT-DNA) COLOGUARD (FIT-D NA) [facility] Start: [address] COLONOGRAPHY [facility] Start: 1994 FECAL OCCULT BLOOD FECAL OCCULT BLOO D [facility] Start: 1994 Screening for malign ant neoplasm of colon [facility] Start: 1994 SIGMOIDOSCOPY SIGMOIDOSCOPY [facility] Start: 1967 Anxiety Screening Anxiety Screening [facility] Start: 1967 BP CONTROLLED (<130/80) BP CONTROLLE D (<130/80) [facility] Start: 1967 Depression Screening Depression Scre ening [facility] Clostridioides difficile toxin genes [Presence] in Stool by GISSELL with probe detection C. DIFFICILE PCR Lab Routine Diarrhea, unspecified type 07/02/2024 11:00 AM EDT [facility] COVID & INFLUENZA A/ B & RSV PCR, ROUTINE COVID & INFLUENZA A/B & RSV PCR, ROUTINE Microbiology Routine Acute cough Ordered: 06/23/2024 [facility] Work Phone: Comment on above: Ordered: 06/23/2024 End: 02-08-2023 Ct abdomen & pelvis w/contrast material CT ABD/PEL W IVCON Radiology Routine Abnormal findings on diagnostic imaging of other parts of digestive tract 1 Occurrences starting 01/09/2022 until 02/08/2023 [facility] Work Phone: Comment on above: 1 Occurrences starti ng 01/09/2022 until 02/08/2023 End: 02-15-2024 Ct angio abd&plvis cntrst mtrl w/wo cntrst img CTA ABD/PEL WO/W IVCON Radiology Routine Abdominal aortic aneurysm (AAA) without rupture, unspecified part (HCC) 1 Occurrences starting 01/16/2023 until 02/15/2024 [facility] Work Phone: Comment on above: 1 Occurrences starti ng 01/16/2023 until 02/15/2024 End: 02-15-2024 Ct angiography chest w/contrast/noncontrast CTA CHEST (NONGATED) WO/W IVCON Radiology Routine Abdominal aortic aneurysm (AAA) without rupture, unspecified part (HCC) 1 Occurrences starting 01/16/2023 until 02/15/2024 [facility] Work Phone: Comment on above: 1 Occurrences starti ng 01/16/2023 until 02/15/2024 End: 09-21-2025 CTA Abdominal vessels and Pelvis vessels WO and W contrast IV CTA ABD/PEL WO/W IVCON Radiology Routine Abdominal aortic aneurysm (AAA) without rupture, unspecified part (HCC) 1 Occurrences starting 08/22/2024 until 09/21/2025 [facility] Work Phone: Comment on above: 1 Occurrences starti ng 08/22/2024 until 09/21/2025 ECG COMPLETE ECG COMPLETE ECG Routine 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 FECAL LACTOFERRIN/LEUKOCYTES FECAL LACTOFERRIN/LEUKOCYTES Lab Routine Diarrhea, unspecified type 07/02/2024 11:00 AM EDT [facility] Hemoglobin.gastroint est inal.lower [Presence] in Stool by Immunoassay IMMUNOCHEMICAL FECAL OCCULT BLOOD TEST Lab Routine Coffee ground emesis Ordered: 11/04/[address] [facility] Comment on above: Ordered: 11/04/2024 End: 09-15-2024 NM CARDIAC PERF STRESS/PHARM NM CARDIAC PERF STRESS/PHARM Radiology Routine Encounter for other preprocedural examination 1 Occurrences starting 08/17/2023 until 09/15/2024 [facility] Work Phone: Comment on above: 1 Occurrences starti ng 08/17/2023 until 09/15/2024 Ova and parasites identified in Unspecified specimen by Light microscopy OVA + PARA MICROSCOPIC Microbiology Routine Diarrhea, unspecified type 07/02/2024 11:00 AM EDT [facility] Patient Education [facility] Work Phone: Patient referral [facility] Work Phone: [facility] Work Phone: [facility] OR [facility] NEGATED: Highlighted row has been ruled out! Planned Goals not documented [facility] Work Phone: Immunizations Immunization Date Immunization Notes Care Provider [facility] 01-09-2025 COVID-19 vaccine, ag e 12+ yr (PFIZER-BIONTECH COMIRNATY) Samuel Foy MD Work Phone: [facility] 07-11-2024 COVID-19 vaccine, ag e 12+ yr (PFIZER-BIONTECH COMIRNATY) Melanie Podlogar HVAC ESTIMATOR.PROFILE STITCHING MACHINE OPERATOR Work Phone: [facility] 07-11-2024 influenza, high dose seasonal, preservative-free Melanie Podlogar HVAC ESTIMATOR.PROFILE STITCHING MACHINE OPERATOR Work Phone: [facility] 07-11-2024 tetanus toxoid, redu katina diphtheria toxoid, and acellular pertussis vaccine, adsorbed Melanie Podlogar HVAC ESTIMATOR.PROFILE STITCHING MACHINE OPERATOR Work Phone: [facility] 02-25-2024 respiratory syncytia l virus (RSV) vaccine, adjuvanted (AREXVY) Melanie Podlogar HVAC ESTIMATOR.PROFILE STITCHING MACHINE OPERATOR Work Phone: [facility] 07-10-2023 COVID-19 vaccine, ag e 12+ yr, 2022- season (PFIZER-BIONTECH) Melanie Podlogar HVAC ESTIMATOR.PROFILE STITCHING MACHINE OPERATOR Work Phone: [facility] 07-10-2023 influenza (HD-IIV4) vaccine, age 65+ yr, high dose, quadrivalent, PF (FLUZONE HIGH-DOSE) Melanie Livingston HVAC ESTIMATOR.PROFILE STITCHING MACHINE OPERATOR Work Phone: [facility] 07-10-2023 influenza virus vaccine, unspecified formulation Anamaulik Herrera HVAC ESTIMATOR.PROFILE STITCHING MACHINE OPERATOR Work Phone: [facility] 12-19-2022 COVID-19 booster vaccine, age 12+ yr, bivalent (PFIZER-BIONTECH) Melanie Livingston HVAC ESTIMATOR.PROFILE STITCHING MACHINE OPERATOR Work Phone: [facility] 07-01-2022 influenza, high-dose , quadrivalent vaccine (FLUZONE HIGH DOSE QUADRIVALENT) Immunization [place] Work Phone: [facility] 07-01-2022 influenza virus vaccine, unspecified formulation Bo Davis MD Work Phone: [facility] 03-21-2022 COVID-19 vaccine, ag e 12+ yr (PFIZER-BIONTECH - MILLER TOP) Samuel Foy MD Work Phone: [facility] 06-29-2021 influenza, high-dose , quadrivalent vaccine (FLUZONE HIGH DOSE QUADRIVALENT) Kasey Babcock PA-C Work Phone: [facility] Work Phone: 12-03-2020 COVID-19 vaccine, ag e 12+ yr (PFIZER-BIONTECH - PURPLE TOP) Kasey Babcock PA-C Work Phone: [facility] Work Phone: 11-12-2020 COVID-19 vaccine, ag e 12+ yr (PFIZER-BIONTECH - PURPLE TOP) Kasey Babcock PA-C Work Phone: [facility] Work Phone: 06-23-2020 influenza, high-dose , quadrivalent vaccine (FLUZONE HIGH DOSE QUADRIVALENT) Kasey Babcock PA-C Work Phone: [facility] 11-12-2019 zoster vaccine recombinant Kasey Snoqualmie PA-C Work Phone: [facility] 09-10-2019 zoster vaccine recombinant Kasey [place] PA-C Work Phone: [facility] 06-24-2019 influenza virus vaccine, unspecified formulation Kasey Yoko PA-C Work Phone: [facility] 06-24-2019 influenza, high dose seasonal, preservative-free Kasey Yoko PA-C Work Phone: [facility] 06-24-2019 zoster vaccine recombinant Kasey [place] PA-C Work Phone: [facility] 06-13-2018 influenza, high dose seasonal, preservative-free Kasey Yoko PA-C Work Phone: [facility] 08-31-2017 influenza, high dose seasonal, preservative-free Kasey Yoko PA-C Work Phone: [facility] 07-20-2016 influenza, high dose seasonal, preservative-free Kasey Yoko PA-C Work Phone: [facility] 03-23-2016 pneumococcal conjuga te vaccine, 13 valent Kasey Yoko PA-C Work Phone: [facility] 07-09-2015 influenza, high dose seasonal, preservative-free Kasey [place] PA-C Work Phone: [facility] Work Phone: 08-05-2014 influenza, seasonal, injectable Kasey Yoko PA-C Work Phone: [facility] Work Phone: 06-18-2014 pneumococcal polysaccharide vaccine, 23 valent Kasey [place] PA-C Work Phone: [facility] 08-12-2013 influenza virus vaccine, unspecified formulation Kasey Yoko PA-C Work Phone: [facility] Work Phone: 03-21-2012 tetanus toxoid, redu katina diphtheria toxoid, and acellular pertussis vaccine, adsorbed Kasey Yoko PA-C Work Phone: [facility] Work Phone: 07-25-2011 influenza virus vaccine, unspecified formulation Kasey Babcock PA-C Work Phone: [facility] Work Phone: Payers Date Payer Category Payer Self-pay [id number] 2016 Medicare [employer] [place] [id number] 2016-Present [phone] [address] [place] [address] HMO [id number] 2016 Medicare [employer] [place] [id number] 2016-Present [phone] [address] [place] [address] HMO [id number] 2016 Medicare (Managed Care[place] MED[place] [id number] 2016 Medicare [id number] 1950 Unknown [id number] Unknown Unknown [id number] Unknown [id number] Unknown [id number] Unknown [id number] Unknown [id number] Unknown [id number] Social History Date Type Detail Facility Assertion Tobacco smoking consumption unknown (finding) [facility] Work Phone: Start: 10-03-2010 End: 07-10-2023 Current non-smoker Current non-smoker [facility] Start: 10-03-2010 End: 06-23-2024 Tobacco smoking status NHIS Ex-smoker [facility] Work Phone: Start: 06-08-1987 End: 06-08-2002 History of tobacco use Current smoker [facility] Work Phone: Start: 06-08-1987 End: 06-08-2002 History of tobacco use Cigarette Smoker [facility] Work Phone: Start: 12-19-2021 End: 01-09-2025 Alcohol intake Current drinker of alcohol (finding) [facility] Start: 07-28-2020 End: 10-06-2022 History SDOH Alcohol Frequency [address] [facility] Start: 07-28-2020 End: 10-06-2022 History SDOH Alcohol Std Drinks [address] [facility] Start: 10-31-2011 History SDOH Alcohol Comment very seldom, not even 1 drink per month [facility] Start: 06-10-2020 End: 10-06-2022 History SDOH Social Connections Phone [address] [facility] Start: 12-08-2019 End: 10-06-2022 History SDOH Social Connections Get Together [address] [facility] Start: 12-08-2019 End: 10-06-2022 History SDOH Social Connections Living [address] [facility] Start: 06-10-2020 Education [address] [facility] Start: 1950 Sex Assigned At Male [facility] Work Phone: Start: 08-27-2021 End: 07-05-2022 Exposure to SARS-CoV-2 (event) Not sure [facility] Work Phone: Start: 03-14-2022 History SDOH Physical Activity MPS [address] [facility] Start: 03-14-2022 End: 10-07-2022 Tobacco smoking status NHIS Unknown if ever smoked [facility] Work Phone: Start: 10-03-2010 End: 06-23-2024 Tobacco use and exposure Smokeless tobacco non-user [facility] Start: 10-06-2022 History SDOH Alcohol Std Drinks [address] [facility] Start: 10-06-2022 History SDOH Physical Activity DPW [address] [facility] Start: 10-06-2022 End: 07-10-2023 Social connection and isolation panel [facility] Frequency of Social Gatherings with Friends and Family Not on file [facility] Do you belong to any clubs or organizations such as anabaptist groups, unions, fraternal or athletic groups, or school groups? No [facility] Are you now , , , , never or living with a partner? [facility] How often to you hav e a drink containing alcohol? Never [facility] Do you feel stress - tense, restless, nervous, or anxious, or unable to sleep at night because your mind is troubled all the time - these days [OSQ] Not at all [facility] (I/We) worried grecia er (my/our) food would run out before (I/we) got money to buy more. Never true [facility] Start: 12-20-2018 Gender identity Identifies as male gender (finding) [facility] Work Phone: Start: 12-20-2018 Sexual orientation Heterosexual (finding) [facility] Work Phone: How often to you hav e a drink containing alcohol? Monthly or less [facility] How many standard dr inks containing alcohol do you have on a typical day? 1 or [address] [facility] Start: 01-23-2025 Sex Male (finding) [facility] Medical Equipment Procedure Code Equipment Code Equipment Origin al Text Equipment Identifier Dates Graft Hemashield Gold 18/10mm 2 Branch Microvel Polyester 40cm - [id number] Start: 09-05-2023 Goals Date Patient Goal Desired Activity /State Personal health goal Functional Status Date Assessment Result Facility 09-07-2023 Are you deaf, or do you have serious difficulty hearing No 09/07/2023 5:56 PM Anthony Correa RN No [facility] 09-07-2023 Are you blind, or do you have serious difficulty seeing, even when wearing glasses No 09/07/2023 5:56 PM Anthony Correa RN No [facility] 09-07-2023 Do you have serious difficulty walking or climbing stairs No 09/07/2023 5:56 PM Anthony Correa RN No [facility] 09-07-2023 Do you have difficul ty dressing or bathing No 09/07/2023 5:56 PM Anthony Correa RN [facility] 09-07-2023 Because of a physica l, mental, or emotional condition, do you have difficulty doing errands alone such as visiting a physician's office or shopping No 09/07/2023 5:56 PM Anthony Correa RN [facility] NEGATED: Highlighted row Functional performance Functional status health issues are not documented Disease [facility] Work Phone: Mental Status Date Assessment Result Facility 12-04-2024 Cognitive function Level Of Cons ciousness Drowsy [facility] Work Phone: 12-04-2024 Cognitive function Voice/Name [facility] Work Phone: 09-07-2023 Because of a physical, mental, or emotional condition, do you have serious difficulty concentrating, remembering, or making decisions No 09/07/2023 5:56 PM Anthony Correa RN No [facility] 04-07-2022 Cognitive function Light Pain [facility] Work Phone: NEGATED: Highlighted row Cognitive function [Interpretation] Cognitive status health issues are not documented Disease [facility] Work Phone: Clinical Notes 09-26-2021 to 03-03-2025 Telephone Encounter - Radha Pathak RN - 03/03/2025 2:10 PM EDTTelephone Encounter - Radha Pathak RN - 03/03/2025 2:10 PM EDTTelephone Encounter - Michael Valdez LPN - 02/23/2025 6:58 PM EDT Note Date & Type Note Facility 03-03-2025 Telephone encounter Note The patient has been identified by name and date of : Yes Caregiver verified no other encounters exist for this prescription request: Yes Caregiver confirmed with patient/requestor that no other refills are due, in the near future, with this provider at this time: Yes The last office visit in the department: 01/09/2025 Does the patient have a future office visit with this provider/department: Yes 07/10/2025 Requested Prescriptions Pending Prescriptions Disp Refills amLODIPine (NORVASC) 2.5 mg tablet 90 tablet 1 Sig: Take one tablet daily along with 5 mg tablet lisinopril (ZESTRIL) 40 mg tablet 90 tablet 1 Sig: Take 1 tablet by mouth once daily. Radha Pathak RN [facility] 03-03-2025 Miscellaneous Notes The patient has been identified by name and date of : Yes Caregiver verified no other encounters exist for this prescription request: Yes Caregiver confirmed with patient/requestor that no other refills are due, in the near future, with this provider at this time: Yes The last office visit in the department: 01/09/2025 Does the patient have a future office visit with this provider/department: Yes 07/10/2025 Requested Prescriptions Pending Prescriptions Disp Refills amLODIPine (NORVASC) 2.5 mg tablet 90 tablet 1 Sig: Take one tablet daily along with 5 mg tablet lisinopril (ZESTRIL) 40 mg tablet 90 tablet 1 Sig: Take 1 tablet by mouth once daily. Radha Pathak, RN documented in this encounter [facility] 02-23-2025 Telephone encounter Note Prescription Refill Information The patient has been identified by name and date of : Yes Caregiver verified no other encounters exist for this prescription request: Yes Caregiver confirmed with patient/requestor that no other refills are due, in the near future, with this provider at this time: Yes The last office visit in the department: 01/09/25 Does the patient have a future office visit with this provider/department: Yes, 07/10/25 Requested Prescriptions Pending Prescriptions Disp Refills amLODIPine (NORVASC) 5 mg tablet 90 tablet 1 Sig: Take 1 tablet by mouth once daily. Michael Valdez LPN February 23, 2025 6:[address] [facility] 02-23-2025 Miscellaneous Notes Prescription Refill Information The patient has been identified by name and date of : Yes Caregiver verified no other encounters exist for this prescription request: Yes Caregiver confirmed with patient/requestor that no other refills are due, in the near future, with this provider at this time: Yes The last office visit in the department: 01/09/25 Does the patient have a future office visit with this provider/department: Yes, 07/10/25 Requested Prescriptions Pending Prescriptions Disp Refills amLODIPine (NORVASC) 5 mg tablet 90 tablet 1 Sig: Take 1 tablet by mouth once daily. Michael Valdez LPN February 23, 2025 6:58 PM documented in this encounter [facility] 02-13-2025 Telephone encounter Note Prescription Refill Information The patient has been identified by name and date of : Yes Caregiver verified no other encounters exist for this prescription request: Yes Caregiver confirmed with patient/requestor that no other refills are due, in the near future, with this provider at this time: Yes The last office visit in the department: 01/09/25 Does the patient have a future office visit with this provider/department: Yes Requested Prescriptions Pending Prescriptions Disp Refills atorvastatin (LIPITOR) 20 mg tablet 90 tablet 1 Sig: Take 1 tablet by mouth once daily. For cholesterol Makenna NORAH Hernandez February 13, 2025 9:[address] [facility] 02-13-2025 Miscellaneous Notes Prescription Refill Information The patient has been identified by name and date of : Yes Caregiver verified no other encounters exist for this prescription request: Yes Caregiver confirmed with patient/requestor that no other refills are due, in the near future, with this provider at this time: Yes The last office visit in the department: 01/09/25 Does the patient have a future office visit with this provider/department: Yes Requested Prescriptions Pending Prescriptions Disp Refills atorvastatin (LIPITOR) 20 mg tablet 90 tablet 1 Sig: Take 1 tablet by mouth once daily. For cholesterol Makenna Hernandez MA February 13, 2025 9:05 AM documented in this encounter [facility] 01-23-2025 Telephone encounter Note Prescription Refill Information The patient has been identified by name and date of : Yes Caregiver verified no other encounters exist for this prescription request: Yes Caregiver confirmed with patient/requestor that no other refills are due, in the near future, with this provider at this time: Yes The last office visit in the department: 01/09/25 Does the patient have a future office visit with this provider/department: Yes, 07/10/25 Requested Prescriptions Pending Prescriptions Disp Refills metoprolol succinate ER (TOPROL XL) 100 mg 90 tablet 1 Sig: Take 1 tablet by mouth once daily. *Last rx written 10/27/24 #90 with 1 refill. Pt is not due for refill. MC message to pt advising of the same. Michael Valdez LPN January 23, 2025 9:[address] [facility] 01-23-2025 Miscellaneous Notes Prescription Refill Information The patient has been identified by name and date of : Yes Caregiver verified no other encounters exist for this prescription request: Yes Caregiver confirmed with patient/requestor that no other refills are due, in the near future, with this provider at this time: Yes The last office visit in the department: 01/09/25 Does the patient have a future office visit with this provider/department: Yes, 07/10/25 Requested Prescriptions Pending Prescriptions Disp Refills metoprolol succinate ER (TOPROL XL) 100 mg 90 tablet 1 Sig: Take 1 tablet by mouth once daily. *Last rx written 10/27/24 #90 with 1 refill. Pt is not due for refill. message to pt advising of the same. Michael Valdez LPN January 23, 2025 9:16 AM documented in this encounter [facility] 01-19-2025 Nuclear medicine Diagnostic study note [facility] [address] [place] [address] [id number] Gastric Emptying Study - 4 HR MR#: [id number] Acct: [id number] Name: KRIS COX Rep #: [id number] : 1950 M 74 From: Jonathan Harris MD PCP: Dr. Rush Foy MD Status: REG CLI Study:Gastric Emptying Study - 4 HR Date of E xam: 01/19/25 Exam# [id number] Ordering Dr: Marlene Nobles INPATIENT AUDITOR-C PROCEDURE: GASTRIC EMPTYING STUDY - 4 HR 01/19/2025 REASON FOR EXAM: EARLY SATIETY, HB COMPARISON: None. TECHNIQUE: The patient ingested a standard meal of sulfur colloid with 2 pieces of bread aswell as butter, and water. postprandially. Anterior and posterior planar images of the upper abdomen were obtained for 1 minute immediately following the meal at 1h, 2h and 4h if more than 10% of the activity persisted within the stomach. Regions of interest were drawn, and a geometric mean was used to calculate a [id number]. RADIOPHARMACEUTICAL: 1.1 mCi of technetium labeled sulfur colloid. FINDINGS: Percent activity remaining in stomach: 1 hour 3 % (normal 37-90%) 2 hours: 37 % (normal 30-60%) 4 hours: 76 % (normal 0-10%) NM/Gastric Emptying Study - 4 HR IMPRESSION: Normal gastric emptying. Reading Location: [facility] CC: EMELIA Nobles; Dr. Rush Foy MD ~ [place]: Signed [facility] 01-09-2025 Note HNO ID: [id number] Author: SAMUEL FOY MD Service: ? Author Type: Physician Type: Progress Notes Filed: 01/09/2025 10:27 Note Text: Chief Complaint Patient presents with: Follow Up: 6 month routine HPI Kris Cox is a 74 year old male who presents here today for Above Complaints.. Patient has barium swallow scheduled 01/[address] Moran's office for continued reflux and history of Barretts. On protonix BID which helps somewhat. Denies dysphagia and odynophagia. Patient had f/u with vascular surgery in November for history of AAA s/p repair in 2022. Recommending he continue ASA and statin with follow-up in 3 years w/ AAA duplex and ABIs. CAD: not following up with cardiology. Stress test normal 08/2023. Asymptomatic on medical management. BP well controlled today. Does not monitor at home. Denies HTN symptoms. No recent gout flares on current regimen and low purine diet. Requesting COVID booster. Past medical history, appointments, medications, allergies reviewed. Previous Medical History PAST MEDICAL HISTORY Diagnosis Date AAA (abdominal aortic aneurysm) (HCC) Dr. Araujo- Multani's esophagus 2009 Needs repeat EGD 04/2023. CAD (coronary artery disease) 2002 stress test abnormal Diverticulosis Duodenal stricture Dr. Moran Duodenitis without mention of hemorrhage Erectile dysfunction Esophagitis, unspecified Gout History of colonoscopy HTN (hypertension) Hyperlipidemia Impaired fasting glucose Overweight (BMI 25.0-29.9) Vertigo Previous Surgical History PAST SURGICAL HISTORY Procedure Laterality Date CARDIAC CATH 04/30/2007 COLONOSCOPY FLX DX W/COLLJ SPEC WHEN PFRMD 10/25/2012 few diverticula - 10 year follow up COLONOSCOPY FLX DX W/COLLJ SPEC WHEN PFRMD 07/28/2020 Colonoscopy EGD 12/03/2009 dx barretts esophagus EGD 06/10/2009 h-pylori negative EGD BALLOON DILATION ESOPHAGUS <30 MM DIAM 01/30/2011 EGD TRANSORAL BIOPSY SINGLE/MULTIPLE 10/25/2012 duodenitis, gastric ulcer, gastritis, small hiatal hernia, multani's esophagitis EGD W/O BRSH SPEC VARICIES INJ 12/16/2021 ESOPHAGOGASTRODUODENOSCOPY TRANSORAL DIAGNOSTIC 07/28/2020 EGD EXPLORATORY SHOULDER SURGERY 1965 repair dislcoation. left FRACTURE SURGERY Left 1961 Fractured collar bone with surgery INCISE FINGER TENDON SHEATH Right 07/19/2023 Right index trigger finger release PAST SURGICAL HISTORY OF right and left meniscus surgeries of knee PAST SURGICAL HISTORY OF 2008 right middle finger trigger repair PAST SURGICAL HISTORY OF 08/02/2012 right ring trigger finger release PAST SURGICAL HISTORY OF 01/09/2014 Left 3rd finger trigger release TONSILLECTOMY HX Family History FAMILY HISTORY Problem Relation Age of Onset Cancer Mother liver Heart Father Lipids Father other (depression) Sister Multiple Sclerosis Brother Anesthesia Problems No Family History Patient Allergies ALLERGIES No Known Allergies Current Medications Current Outpatient Medications on File Prior to Visit Medication Sig allopurinol (ZYLOPRIM) 100 mg tablet Take 2 tablets by mouth once daily. For gout. metoprolol succinate ER (TOPROL XL) 100 mg Take 1 tablet by mouth once daily. amLODIPine (NORVASC) 5 mg tablet Take 1 tablet by mouth once daily. amLODIPine (NORVASC) 2.5 mg tablet Take one tablet daily along with 5 mg tablet lisinopril (ZESTRIL) 40 mg tablet Take 1 tablet by mouth once daily. pantoprazole DR (PROTONIX) 40 mg tablet Take 1 tablet by mouth two times a day. Take on empty stomach, 1/2 hr before meal. benzonatate (TESSALON PERLE) 100 mg capsule Take 1 capsule by mouth three times a day as needed. atorvastatin (LIPITOR) 20 mg tablet Take 1 tablet by mouth once daily. For cholesterol benzonatate (TESSALON PERLES) 100 mg capsule Take 1 capsule by mouth three times a day as needed for cough. acetaminophen (TYLENOL) 325 mg tablet Take 1 tablet by mouth every 4 hours as needed for pain. aspirin 81 mg chewable tablet Take 1 tablet by mouth once daily. colchicine 0.6 mg tablet Take 2 tabs by mouth, followed by 1 tab one hour later for gout flare. May repeat in 1 week. naproxen (NAPROSYN) 500 mg tablet Take 1 tablet by mouth twice daily as needed (gout flare). Take with food. meclizine (ANTIVERT) 25 mg tab Take 1 tablet by mouth twice daily as needed. TAKE 1 TABLET BY MOUTH NEEDED. USES FOR TRAVELING ONLY. No current facility-administered medications on file prior to visit. Social History Social History Tobacco Use Smoking status: Former Current packs/day: 0.00 Average packs/day: 1 pack/day for 15.0 years (15.0 ttl pk-yrs) Types: Cigarettes Start date: 06/08/1987 Quit date: 06/08/2002 Years since quittin.6 Smokeless tobacco: Never Vaping Use Vaping status: Never Used Substance Use Topics Alcohol use: Yes Comment: very seldom, not even 1 drink per month Drug use: No Review of Symptoms REVIEW OF S (more content not included)... [facility] 01-09-2025 History of Presen t illness Narrative Chief Complaint Patient presents with: Follow Up: 6 month routine HPI Kris Cox is a 74 year old male who presents here today for Above Complaints.. Patient has barium swallow scheduled 01/[address] Moran's office for continued reflux and history of Barretts. On protonix BID which helps somewhat. Denies dysphagia and odynophagia. Patient had f/u with vascular surgery in November for history of AAA s/p repair in 2022. Recommending he continue ASA and statin with follow-up in 3 years w/ AAA duplex and ABIs. CAD: not following up with cardiology. Stress test normal 08/2023. Asymptomatic on medical management. BP well controlled today. Does not monitor at home. Denies HTN symptoms. No recent gout flares on current regimen and low purine diet. Requesting COVID booster. Past medical history, appointments, medications, allergies reviewed. Previous Medical History PAST MEDICAL HISTORY Diagnosis Date AAA (abdominal aortic aneurysm) ([facility]) Dr. Araujo- Multani's esophagus 2009 Needs repeat EGD 04/2023. CAD (coronary artery disease) 2003 stress test abnormal Diverticulosis Duodenal stricture Dr. Moran Duodenitis without mention of hemorrhage Erectile dysfunction Esophagitis, unspecified Gout History of colonoscopy HTN (hypertension) Hyperlipidemia Impaired fasting glucose Overweight (BMI 25.0-29.9) Vertigo Previous Surgical History PAST SURGICAL HISTORY Procedure Laterality Date CARDIAC CATH 04/30/2007 COLONOSCOPY FLX DX W/COLLJ SPEC WHEN PFRMD 10/25/2012 few diverticula - 10 year follow up COLONOSCOPY FLX DX W/COLLJ SPEC WHEN PFRMD 07/28/2020 Colonoscopy EGD 12/03/2009 dx barretts esophagus EGD 06/10/2009 h-pylori negative EGD BALLOON DILATION ESOPHAGUS <30 MM DIAM 01/30/2011 EGD TRANSORAL BIOPSY SINGLE/MULTIPLE 10/25/2012 duodenitis, gastric ulcer, gastritis, small hiatal hernia, multani's esophagitis EGD W/O BRSH SPEC VARICIES INJ 12/16/2021 ESOPHAGOGASTRODUODENOSCOPY TRANSORAL DIAGNOSTIC 07/28/2020 EGD EXPLORATORY SHOULDER SURGERY 1965 repair dislcoation. left FRACTURE SURGERY Left 1961 Fractured collar bone with surgery INCISE FINGER TENDON SHEATH Right 07/19/2023 Right index trigger finger release PAST SURGICAL HISTORY OF right and left meniscus surgeries of knee PAST SURGICAL HISTORY OF 2008 right middle finger trigger repair PAST SURGICAL HISTORY OF 08/02/2012 right ring trigger finger release PAST SURGICAL HISTORY OF 01/09/2014 Left 3rd finger trigger release TONSILLECTOMY HX Family History FAMILY HISTORY Problem Relation Age of Onset Cancer Mother liver Heart Father Lipids Father other (depression) Sister Multiple Sclerosis Brother Anesthesia Problems No Family History Patient Allergies ALLERGIES No Known Allergies Current Medications Current Outpatient Medications on File Prior to Visit Medication Sig allopurinol (ZYLOPRIM) 100 mg tablet Take 2 tablets by mouth once daily. For gout. metoprolol succinate ER (TOPROL XL) 100 mg Take 1 tablet by mouth once daily. amLODIPine (NORVASC) 5 mg tablet Take 1 tablet by mouth once daily. amLODIPine (NORVASC) 2.5 mg tablet Take one tablet daily along with 5 mg tablet lisinopril (ZESTRIL) 40 mg tablet Take 1 tablet by mouth once daily. pantoprazole DR (PROTONIX) 40 mg tablet Take 1 tablet by mouth two times a day. Take on empty stomach, 1/2 hr before meal. benzonatate (TESSALON PERLE) 100 mg capsule Take 1 capsule by mouth three times a day as needed. atorvastatin (LIPITOR) 20 mg tablet Take 1 tablet by mouth once daily. For cholesterol benzonatate (TESSALON PERLES) 100 mg capsule Take 1 capsule by mouth three times a day as needed for cough. acetaminophen (TYLENOL) 325 mg tablet Take 1 tablet by mouth every 4 hours as needed for pain. aspirin 81 mg chewable tablet Take 1 tablet by mouth once daily. colchicine 0.6 mg tablet Take 2 tabs by mouth, followed by 1 tab one hour later for gout flare. May repeat in 1 week. naproxen (NAPROSYN) 500 mg tablet Take 1 tablet by mouth twice daily as needed (gout flare). Take with food. meclizine (ANTIVERT) 25 mg tab Take 1 tablet by mouth twice daily as needed. TAKE 1 TABLET BY MOUTH NEEDED. USES FOR TRAVELING ONLY. No current facility-administered medications on file prior to visit. Social History Social History Tobacco Use Smoking status: Former Current packs/day: 0.00 Average packs/day: 1 pack/day for 15.0 years (15.0 ttl pk-yrs) Types: Cigarettes Start date: 06/08/1987 Quit date: 06/08/2002 Years since quittin.6 Smokeless tobacco: Never Vaping Use Vaping status: Never Used Substance Use Topics Alcohol use: Yes Comment: very seldom, not even 1 drink per month Drug use: No Review of Symptoms REVIEW OF SYSTEMS GENERAL: No weight loss, malaise or fevers HEENT: Negative for frequent or significant headaches, No changes in hearing or vision, no nose bleeds or other nasal problems RESPIRATORY: Negative for cough, hemoptysis, wheezing, COPD, dyspnea or shortness of breath CARDIOVASCULAR: Negative for chest pain, leg swelling, hypertension, CHF or palpitations GI: No nausea, vomiting, or diarrhea SKIN: Negative for lesions, rash, and itching EXAM: BP 112/62 Pulse 69 Resp 16 Wt 75.4 kg (166 lb 3.2 oz) SpO2 98% BMI 26.03 kg/m General Appearance: Well appearing, alert, in no acute distress, well-hydrated, well nourished.. Skin: Skin color, texture, turgor normal, no suspicious rashes or lesions. Lungs: Lungs clear to auscultation. No wheezing, rhonchi, rales.. Heart: RRR without murmur, gallop, or rubs. No ectopy. Abdomen: Normal abdominal exam, Abdomen soft, non-tender. Bowel sounds normal. No masses, organomegaly. Extremities: No deformities, edema, skin discoloration, clubbing or cyanosis. Good capillary refill. . Health Maintenance List Depression Screening Never done Anxiety Screening Never done Covid-19 Vaccine() due on 01/09/2025 LDL Cholesterol due on 07/14/2025 BP Controlled (<130/80) due on 11/10/2025 Annual PCP Team Chronic Disease Visit due on 01/09/2026 Diabetes Screening due on 11/04/2027 Lipid Screening due on 07/14/2029 Colorectal Cancer Screening due on 07/28/2030 DTaP,Tdap,Td Vaccine(3 - Td or Tdap) due on 07/11/2034 Influenza Vaccine Completed RSV Vaccine Completed Hepatitis C Screening Completed Shingrix Vaccine Completed Pneumococcal Vaccine: 50+ Completed Advance Directive Discussion Discontinued Data reviewed Latest Ref Rng 07/14/2024 11/04/2024 11/05/2024 WBC 3.70 - 11.00 k/uL 9.04 RBC 4.20 - 6.00 m/uL 5.14 Hemoglobin 13.0 - 17.0 g/dL 15.3 Hematocrit 39.0 - 51.0 % 46.9 MCV 80.0 - 100.0 fL 91.2 MCH 26.0 - 34.0 pg 29.8 MCHC 30.5 - 36.0 g/dL 32.6 RDW-CV 11.5 - 15.0 % 13.7 Platelet Count 150 - 400 k/uL 300 MPV 9.0 - 12.7 fL 9.0 Neut% % 62.7 Abs Neut (ANC) 1.45 - 7.50 k/uL 5.66 Lymph% % 24.2 Abs Lymph 1.00 - 4.00 k/uL 2.19 [place]% % 6.5 Abs [place] <0.87 k/uL 0.59 Eosin% % 5.2 Abs Eosin <0.46 k/uL 0.47 (H) Baso% % 1.1 Abs Baso <0.11 k/uL 0.10 Immature Gran % % 0.3 IMMATURE GRANS (ABS) <0.10 k/uL 0.03 NRBC /100 WBC 0.0 Absolute nRBC <0.01 k/uL <0.01 DTYPE Auto Protein, Total 6.3 - 8.0 g/dL 6.9 Albumin 3.9 - 4.9 g/dL 4.1 Calcium 8.5 - 10.2 mg/dL 9.3 Bilirubin, Total 0.2 - 1.3 mg/dL 0.4 Alkaline Phosphatase 38 - 113 U/L 95 AST 14 - 40 U/L 17 ALT 10 - 54 U/L 14 Glucose 74 - 99 mg/dL 108 (H) BUN 9 - 24 mg/dL 10 Creatinine 0.73 - 1.22 mg/dL 0.91 Sodium 136 - 144 mmol/L 138 Potassium 3.7 - 5.1 mmol/L 4.6 Chloride 98 - 107 mmol/L 102 CO2 22 - 30 mmol/L 26 Anion Gap 8 - 15 mmol/L 10 eGFR >=60 mL/min/1.73m 88 Cholesterol, Total <200 mg/dL 131 Triglyceride <150 mg/dL 109 HDL Cholesterol >39 mg/dL 39 (L) Non HDL Cholesterol <130 mg/dL 92 Fasting Time hrs 10 VLDL Cholesterol <30 mg/dL 22 TC:HDL Ratio <5.10 3.36 LDL Cholesterol <100 mg/dL 70 LDL:HDL Ratio <2.54 1.79 Occult Blood, Stool Negative Negative Legend: (L) Low (H) High EKG: NSR at 62 bpm. ASSESSMENT/PLAN: 1. Primary hypertension - ICD9: 401.9, ICD10: I10 (primary diagnosis) - Controlled - Continue current medications - Recommend home blood pressure monitoring, to bring results to next visit - Encouraged sodium restriction, DASH or Mediterranean diet - Recommend regular aerobic exercise 2. Mixed hyperlipidemia - ICD9: 272.2, ICD10: E78.2 - Controlled - Counseled on healthy diet and regular exercise 3. Encounter for immunization - ICD9: V03.89, ICD10: Z23 - [employer] COVID-19 VACCINE AGE 12+ YR (COMIRNATY) 4. 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 - ICD9: 414.01, ICD10: I25.10 Normal EKG today. Asymptomatic on medical management. No changes. - ECG COMPLETE 5. Gastroesophageal reflux disease, unspecified whether esophagitis present - ICD9: 530.81, ICD10: K21.9 F/u GI recommendations and continue protonix BID. 6. Multani's esophagus without dysplasia - ICD9: 530.85, ICD10: K22.70 F/u GI recommendations and continue protonix BID. 7. Impaired fasting glucose - ICD9: 790.21, ICD10: R73.01 Recheck A1c. Will call with results. Work on healthy diet and exercise. 8. Overweight (BMI 25.0-29.9) - ICD9: 278.02, ICD10: E66.3 Work on healthy diet and exercise. 9. Abdominal aortic aneurysm (AAA) without rupture, unspecified part - ICD9: 441.4, ICD10: I71.40 S/p AAA repair. Continue current regimen. F/u with vascular recommendations. 10. History of abdominal aortic aneurysm (AAA) repair - ICD9: V45.89, ICD10: Z98.890 See above. Samuel Foy MD documented in this encounter [facility] 12-04-2024 Note [facility] Medical Records Department [address] [place] [id number] History Physical Exam 12/04/24 1148 MR#: [id number] Acct: [id number] Name: KRIS COX Rep #: [id number] : 1950 74 From: Carlton Friend PCP: Dr. Rush Foy MD [place] [facility] [place] HPI - General General Date of Admission: 12/04/24 Date of Service: 12/04/24 Chief Complaint: dysphagia and multani's esophagus HPI Narrative KRIS COX, is a 74 M who presents for the evaluation of dysphagia and Multani's esophagus. Chief Complaint: more HB at night Details: KRIS COX, is a 74 M who presents to the office today for EGD 04/07/2022 - Multani's w/o dysplasia, negative for H. pylori - Esophageal mucosal changes secondary to established long-segment Multani's disease. Biopsied. - Small hiatal hernia. - A small amount of a trichobezoar in the stomach. - Non-bleeding gastric ulcers with no stigmata of bleeding. Biopsied. - Retained food in the duodenum. Abdomen/Pelvis CTA 10/26/24 1. No CTA evidence of active gastrointestinal hemorrhage or other acute abnormalities. Some causes of gastrointestinal bleeding can be occult on CTA. Consider further evaluation with endoscopy or nuclear medicine tagged RBC scan if clinically indicated. 2. Surgical repair of the previous infrarenal abdominal aortic aneurysm. No evidence of acute complication. 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 COLON 2021 ([place]) normal per patient - repeat in 10 years - denies any family h/o colon CA - denies any change in bowel habits - denies any - does not eat within 4 hours of bed - c/o breakthrough HB throughout the day and reflux at HS - when laying on right side - denies any N/V - denies any weight loss - c/o early satiety No easy bleeding denum. He was seen in ED on 11/01/2024 with complaints of abdominal discomfort, N/V/D, SOB and reported dark emesis and was hypertensive and tachypneic (+RSV). HGB was normal at 16.4 and elevated BUN was likely secondary to MILDRED. He reports having a hard time sleeping at night due to reflux and HB throughout the day. He reports breakthrough symptoms have been more of an issue post aortic repair. Denies any dysphagia. He does c/o early satiety. He is not diabetic. He denies any emesis or weight loss. He will trial Rabeprazole 20mg once daily and discontinue pantoprazole. I have scheduled him for an EGD and he will follow-up post procedure. If EGD is negative for GOO and he has continued c/o early satiety will proceed with GES Patient Instructions: 1. Discontinue pantoprazole 40mg twice daily 2. Start Rabeprazole 20mg once daily, take every morning on an empty stomach 30 minutes before first meal 3. If you have breakthrough heartburn/reflux symptoms trial over the counter Pepcid Complete - chew two twice a day for breakthrough symptoms 4. Proceed with EGD 5. Follow-up in office 2-3 weeks post EGD 6. Call in 2 weeks with symptom update Plan Details Follow Up: 3 Months [facility] Medical History History of RSV infection Wears glasses Wears partial dentures Wears dentures Alcohol use High cholesterol Back pain History of ulceration Gastric reflux Former smoker History of echocardiogram History of stress test History of trigger finger Hx of dislocation of shoulder Vertigo Hypertension Gout Esophagitis Erectile dysfunction Duodenitis without mention of hemorrhage CAD (coronary artery disease) AAA (abdominal aortic aneurysm) Home Medications ???Medication ???Instructions ???Recorded ???Last Taken ???Type metoprolol succinate 100 mg 100 mg PO DAILY 01/24/17 12/03/24 History tablet,extended release 24 hr allopurinol 100 mg tablet 100 mg PO DAILY 02/07/22 12/03/24 History atorvastatin 20 mg tablet 20 mg PO QHS 03/14/22 12/03/24 His tory lisinopril 40 mg tablet 40 mg PO DAILY 03/14/22 12/03/24 H istory amlodipine 2.5 mg tablet 2.5 mg PO DAILY 10/26/24 12/03/24 History amlodipine 5 mg tablet 5 mg PO DAILY 10/26/24 12/03/24 Hi story aspirin 81 mg tablet,delayed 81 mg PO QDAY 11/19/24 12/03/24 Hi story release pantoprazole 40 mg tablet,delayed 40 mg PO BID #60 tabs 12/04/24 Un known Rx release Allergy/AdvReac Type Severity Reaction Status Date / Time No Known Allergies Allergy Verified 12/04/24 10:09 Family History Mother Colon cancer Liver Father Myocardial infarction Heart disease Hypertension High cholesterol Sister Myocardial infarction Depression Respiratory disease Surgical History History of (more content not included)... [facility] 11-19-2024 Evaluation note Diagnosis Onset Date Resolution Multani's esophagus acute Febru 2024 9:41am GERD (gastroesophageal reflux disease) acute November 19 9:41am Multani's esophagus acute Febru 2024 9:42am GERD (gastroesophageal reflux disease) acute December 04 9:42am Multani's esophagus acute December 16, 2024 1:22pm Early satiety acute December 16, 2024 1:22pm Heartburn acute December 16 1:22pm [facility] Work Phone: [phone]) 559-111002-04-2025 Telephone encounter Note* Telephone Encounter - Nini Barger - 11/11/2024 8:34 AM EST Pharmacy requesting medication Patient last seen 11/04/24 Future visit scheduled yes PHARMACY. [facility]02-04-2025 Miscellaneous Notes* Telephone Encounter - Nini Barger - 11/11/2024 8:34 AM EST Pharmacy requesting medication Patient last seen 11/04/24 Future visit scheduled yes PHARMACY. [facility] NoteHNO ID: [id number] Author: NAIF GRAVES MD Service: ? Author Type: Physician Type: Progress Notes Filed: 11/12/2024 10:53 Note Text: [facility] [place] DEPARTMENT OF VASCULAR SURGERY OUTPATIENT VISIT DATE November 10, 2024 OUTPATIENT VISIT TYPE ESTABLISHED SERVICE DATE: 11/10/2024 SERVICE TIME: 1:20 PM PRIMARY CARE PHYSICIAN: Samuel Foy MD HISTORY OF PRESENT ILLNESS: Mr. Cox is a 74 year old male who presents today for a vascular surgery follow-up visit of his AAA. 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 Denies any abdominal or back pain. Feeling well with return to normal strength. PAST MEDICAL HISTORY Diagnosis Date AAA (abdominal aortic aneurysm) ([facility]) Dr. Araujo- Multani's esophagus 2009 Needs repeat EGD 04/2023. CAD (coronary artery disease) 2002 stress test abnormal Diverticulosis Duodenal stricture Dr. Moran Duodenitis without mention of hemorrhage Erectile dysfunction Esophagitis, unspecified Gout History of colonoscopy HTN (hypertension) Hyperlipidemia Impaired fasting glucose Overweight (BMI 25.0-29.9) Vertigo PAST SURGICAL HISTORY Procedure Laterality Date CARDIAC CATH 04/30/2007 COLONOSCOPY FLX DX W/COLLJ SPEC WHEN PFRMD 10/25/2012 few diverticula - 10 year follow up COLONOSCOPY FLX DX W/COLLJ SPEC WHEN PFRMD 07/28/2020 Colonoscopy EGD 12/03/2009 dx barretts esophagus EGD 06/10/2009 h-pylori negative EGD BALLOON DILATION ESOPHAGUS <30 MM DIAM 01/30/2011 EGD TRANSORAL BIOPSY SINGLE/MULTIPLE 10/25/2012 duodenitis, gastric ulcer, gastritis, small hiatal hernia, multani's esophagitis EGD W/O BRSH SPEC VARICIES INJ 12/16/2021 ESOPHAGOGASTRODUODENOSCOPY TRANSORAL DIAGNOSTIC 07/28/2020 EGD EXPLORATORY SHOULDER SURGERY 1965 repair dislcoation. left FRACTURE SURGERY Left 1961 Fractured collar bone with surgery INCISE FINGER TENDON SHEATH Right 07/19/2023 Right index trigger finger release PAST SURGICAL HISTORY OF right and left meniscus surgeries of knee PAST SURGICAL HISTORY OF 2008 right middle finger trigger repair PAST SURGICAL HISTORY OF 08/02/2012 right ring trigger finger release PAST SURGICAL HISTORY OF 01/09/2014 Left 3rd finger trigger release TONSILLECTOMY HX SOCIAL HISTORY Social History Tobacco Use Smoking status: Former Current packs/day: 0.00 Average packs/day: 1 pack/day for 15.0 years (15.0 ttl pk-yrs) Types: Cigarettes Start date: 06/08/1987 Quit date: 06/08/2002 Years since quittin.4 Smokeless tobacco: Never Vaping Use Vaping status: Never Used Substance Use Topics Alcohol use: Yes Comment: very seldom, not even 1 drink per month Drug use: No MEDICATIONS: metoprolol succinate ER (TOPROL XL) 100 mg Take 1 tablet by mouth once daily. amLODIPine (NORVASC) 5 mg tablet Take 1 tablet by mouth once daily. amLODIPine (NORVASC) 2.5 mg tablet Take one tablet daily along with 5 mg tablet lisinopril (ZESTRIL) 40 mg tablet Take 1 tablet by mouth once daily. pantoprazole DR (PROTONIX) 40 mg tablet Take 1 tablet by mouth two times a day. Take on empty stomach, 1/2 hr before meal. benzonatate (TESSALON PERLE) 100 mg capsule Take 1 capsule by mouth three times a day as needed. atorvastatin (LIPITOR) 20 mg tablet Take 1 tablet by mouth once daily. For cholesterol benzonatate (TESSALON PERLES) 100 mg capsule Take 1 capsule by mouth three times a day as needed for cough. acetaminophen (TYLENOL) 325 mg tablet Take 1 tablet by mouth every 4 hours as needed for pain. aspirin 81 mg chewable tablet Take 1 tablet by mouth once daily. colchicine 0.6 mg tablet Take 2 tabs by mouth, followed by 1 tab one hour later for gout flare. May repeat in 1 week. naproxen (NAPROSYN) 500 mg tablet Take 1 tablet by mouth twice daily as needed (gout flare). Take with food. meclizine (ANTIVERT) 25 mg tab Take 1 tablet by mouth twice daily as needed. TAKE 1 TABLET BY MOUTH NEEDED. USES FOR TRAVELING ONLY. ALLERGIES: ALLERGIES No Known Allergies PHYSICAL EXAM: Wt 74.4 kg (164 lb) BMI 25.69 kg/m? General: Well developed, no acute distress Neurologic: Alert with no focal deficit Skin: No rashes or lesions HEENT: Anicteric sclera Pulmonary: Non-labored breathing Heart: Regular rate Abdomen: Soft, non-tender, non-distended Extremities: No peripheral edema Vascular: Palpable popliteal pulses bilaterally Diagnostic tests reviewed for today's visit: 10/21/2024 - CTA Abdomen/Pelvis 1. Interval repair of infrarenal aortic aneurysm with MAGGY reimplantation. 2. Reimplanted origin of the MAGGY is tortuous with at least moderate segmental narrowing, distal perfusion maintained. 3. No residual aneurysm or acute aortic pathology. IMPRESSION: Mr. Cox is a 74 y/o M w/ hx of GERD (more content not included)...[facility]02-03-2025 History of Present illness Narrative* Naif Graves MD - 11/10/2024 1:20 PM EST Images from the original note were not included. [facility] [place] DEPARTMENT OF VASCULAR SURGERY OUTPATIENT VISIT DATE November 10, 2024 OUTPATIENT VISIT TYPE ESTABLISHED SERVICE DATE: 11/10/2024 SERVICE TIME: 1:20 PM PRIMARY CARE PHYSICIAN: Samuel Foy MD HISTORY OF PRESENT ILLNESS: Mr. Cox is a 74 year old male who presents today for a vascular surgery follow-up visit of his AAA. 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 Denies any abdominal or back pain. Feeling well with return to normal strength. PAST MEDICAL HISTORY Diagnosis Date [facility] Needs repeat EGD 04/2023. CAD (coronary artery disease) 2002 stress test abnormal Diverticulosis Duodenal stricture Dr. Moran Duodenitis without mention of hemorrhage Erectile dysfunction Esophagitis, unspecified Gout History of colonoscopy HTN (hypertension) Hyperlipidemia Impaired fasting glucose Overweight (BMI 25.0-29.9) Vertigo PAST SURGICAL HISTORY Procedure Laterality Date CARDIAC CATH 04/30/2007 COLONOSCOPY FLX DX W/COLLJ SPEC WHEN PFRMD 10/25/2012 few diverticula - 10 year follow up COLONOSCOPY FLX DX W/COLLJ SPEC WHEN PFRMD 07/28/2020 Colonoscopy EGD 12/03/2009 dx barretts esophagus EGD 06/10/2009 h-pylori negative EGD BALLOON DILATION ESOPHAGUS <30 MM DIAM 01/30/2011 EGD TRANSORAL BIOPSY SINGLE/MULTIPLE 10/25/2012 duodenitis, gastric ulcer, gastritis, small hiatal hernia, multani's esophagitis EGD W/O BRSH SPEC VARICIES INJ 12/16/2021 ESOPHAGOGASTRODUODENOSCOPY TRANSORAL DIAGNOSTIC 07/28/2020 EGD EXPLORATORY SHOULDER SURGERY 1965 repair dislcoation. left FRACTURE SURGERY Left 1961 Fractured collar bone with surgery INCISE FINGER TENDON SHEATH Right 07/19/2023 Right index trigger finger release PAST SURGICAL HISTORY OF right and left meniscus surgeries of knee PAST SURGICAL HISTORY OF 2008 right middle finger trigger repair PAST SURGICAL HISTORY OF 08/02/2012 right ring trigger finger release PAST SURGICAL HISTORY OF 01/09/2014 Left 3rd finger trigger release TONSILLECTOMY HX SOCIAL HISTORY Social History Tobacco Use Smoking status: Former Current packs/day: 0.00 Average packs/day: 1 pack/day for 15.0 years (15.0 ttl pk-yrs) Types: Cigarettes Start date: 06/08/1987 Quit date: 06/08/2002 Years since quittin.4 Smokeless tobacco: Never Vaping Use Vaping status: Never Used Substance Use Topics Alcohol use: Yes Comment: very seldom, not even 1 drink per month Drug use: No MEDICATIONS: metoprolol succinate ER (TOPROL XL) 100 mg Take 1 tablet by mouth once daily. amLODIPine (NORVASC) 5 mg tablet Take 1 tablet by mouth once daily. amLODIPine (NORVASC) 2.5 mg tablet Take one tablet daily along with 5 mg tablet lisinopril (ZESTRIL) 40 mg tablet Take 1 tablet by mouth once daily. pantoprazole DR (PROTONIX) 40 mg tablet Take 1 tablet by mouth two times a day. Take on empty stomach, 1/2 hr before meal. benzonatate (TESSALON PERLE) 100 mg capsule Take 1 capsule by mouth three times a day as needed. atorvastatin (LIPITOR) 20 mg tablet Take 1 tablet by mouth once daily. For cholesterol benzonatate (TESSALON PERLES) 100 mg capsule Take 1 capsule by mouth three times a day as needed for cough. acetaminophen (TYLENOL) 325 mg tablet Take 1 tablet by mouth every 4 hours as needed for pain. aspirin 81 mg chewable tablet Take 1 tablet by mouth once daily. colchicine 0.6 mg tablet Take 2 tabs by mouth, followed by 1 tab one hour later for gout flare. Mayrepeat in 1 week. naproxen (NAPROSYN) 500 mg tablet Take 1 tablet by mouth twice daily as needed (gout flare). Take with food. meclizine (ANTIVERT) 25 mg tab Take 1 tablet by mouth twice daily as needed. TAKE 1 TABLET BY MOUTHAS NEEDED. USES FOR TRAVELING ONLY. ALLERGIES: ALLERGIES No Known Allergies PHYSICAL EXAM: Wt 74.4 kg (164 lb) BMI 25.69 kg/m General: Well developed, no acute distress Neurologic: Alert with no focal deficit Skin: No rashes or lesions HEENT: Anicteric sclera Pulmonary: Non-labored breathing Heart: Regular rate Abdomen: Soft, non-tender, non-distended Extremities: No peripheral edema Vascular: Palpable popliteal pulses bilaterally Diagnostic tests reviewed for today's visit: 10/21/2024 - CTA Abdomen/Pelvis 1. Interval repair of infrarenal aortic aneurysm with MAGGY reimplantation. 2. Reimplanted origin of the MAGGY is tortuous with at least moderate segmental narrowing, distal perfusion maintained. 3. No residual aneurysm or acute aortic pathology. IMPRESSION: Mr. 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 PLAN and RECOMMENDATIONS: - Continue ASA and statin - Follow-up in 3 years w/ AAA duplex and ABIs Medical Decision Making: Problems: Low: Stable chronic illness Data: Unique test result(s) reviewed: 1 Unique test(s) ordered: 2 Risk: Moderate: Drug management Medical Decision Making Level: 4 - Moderate SIGNATURE: Naif Graves MD PATIENT NAME: Kris Cox DATE: November 12, 2024 TIME: 10:53 AM documented in [facility] encounter[facility] Telephone encounter Note * Telephone Encounter - Maury Teixeira LPN - 11/05/2024 11:30 AM EST patient notified and verbalized understanding. Maury Teixeira LPN [facility]01-29-2025 Miscellaneous Notes* Telephone Encounter - Maury Teixeira LPN - 11/05/2024 11:30 AM EST patient notified and verbalized understanding. Maury Teixeira LPN * Telephone Encounter - Shira Noel LPN - 11/05/2024 10:22 AM EST Message left for patient to return call. Shira Noel LPN * Telephone Encounter - Shira Noel LPN - 11/05/2024 10:21 AM EST ----- Message from Samuel Foy MD sent at 11/05/2024 7:04 AM EST ----- Normal labs. No anemia. Awaiting FOBT results. F/u with GI as recommended. documented in this encounter[facility] Telephone encounter Note * Telephone Encounter - Shira Noel LPN - 11/05/2024 10:22 AM EST Message left for patient to return call. Shira Noel LPN [facility]01-29-2025 Telephone encounter Note* Telephone Encounter - Shira Noel LPN - 11/05/2024 10:21 AM EST ----- Message from Samuel Foy MD sent at 11/05/2024 7:04 AM EST ----- Normal labs. No anemia. Awaiting FOBT results. F/u with GI as recommended. [facility]01-28-2025 Instructions* Patient Instructions* Samuel Foy MD - 11/04/2024 10:26 AM EST Please take pepcid 20 mg nightly over the counter for reflux. documented in this encounterMer[facility]28[facility]2025 NoteHNO ID: [id number] Author: SAMUEL FOY MD Service: ? Author Type: Physician Type: Progress Notes Filed: 11/04/2024 11:34 Note Text: Chief Complaint Patient presents with: ER F/U: RSV HPI Kris Cox is a 74 year old male who presents here today for ER Follow Up.. Patient evaluated at [facility] ED on 10/26 for complaing of nausea/voimiting/diarrhea x 2 days along with fatigue and SOB. Workup in the ER was positive for RSV. CBC, CMP, lipase were normal. Lactic acid level elevated. CXR normal. CTA abdomen/pelvis obtained for complaint of dark emesis which was negative for signs of bleed. Discharged home with rx for zofran and bentyl and advised to follow up with our office. Patient states that symptoms improved the day following the ER visit and has not had vomiting or diarrhea since. States that he never had any hematemesis, hematochezia, or melena. States that when he vomited once it looked like he brought up a black piece of banana. Denies recent NSAID use. Has been getting reflux more frequently at night despite taking Protonix BID. Denies dysphagia, odynophagia, abdominal pain, early satiety, night sweats, fever/chills. History of gastric ulcers on EGD in 2021. Recommended f/u in 1 year for repeat which he is overdue for. Past medical history, appointments, medications, allergies reviewed. Previous Medical History PAST MEDICAL HISTORY Diagnosis Date [facility] Needs repeat EGD 04/2023. CAD (coronary artery disease) 2002 stress test abnormal Diverticulosis Duodenal stricture Dr. Moran Duodenitis without mention of hemorrhage Erectile dysfunction Esophagitis, unspecified Gout History of colonoscopy HTN (hypertension) Hyperlipidemia Impaired fasting glucose Overweight (BMI 25.0-29.9) Vertigo Previous Surgical History PAST SURGICAL HISTORY Procedure Laterality Date CARDIAC CATH 04/30/2007 COLONOSCOPY FLX DX W/COLLJ SPEC WHEN PFRMD 10/25/2012 few diverticula - 10 year follow up COLONOSCOPY FLX DX W/COLLJ SPEC WHEN PFRMD 07/28/2020 Colonoscopy EGD 12/03/2009 dx barretts esophagus EGD 06/10/2009 h-pylori negative EGD BALLOON DILATION ESOPHAGUS <30 MM DIAM 01/30/2011 EGD TRANSORAL BIOPSY SINGLE/MULTIPLE 10/25/2012 duodenitis, gastric ulcer, gastritis, small hiatal hernia, multani's esophagitis EGD W/O [facility] SPEC VARICIES INJ 12/16/2021 ESOPHAGOGASTRODUODENOSCOPY TRANSORAL DIAGNOSTIC 07/28/2020 EGD EXPLORATORY SHOULDER SURGERY 1965 repair dislcoation. left FRACTURE SURGERY Left 1961 Fractured collar bone with surgery INCISE FINGER TENDON SHEATH Right 07/19/2023 Right index trigger finger release PAST SURGICAL HISTORY OF right and left meniscus surgeries of knee PAST SURGICAL HISTORY OF 2008 right middle finger trigger repair PAST SURGICAL HISTORY OF 08/02/2012 right ring trigger finger release PAST SURGICAL HISTORY OF 01/09/2014 Left 3rd finger trigger release TONSILLECTOMY HX Family History FAMILY HISTORY Problem Relation Age of Onset Cancer Mother liver Heart Father Lipids Father other (depression) Sister Multiple Sclerosis Brother Anesthesia Problems No Family History Patient Allergies ALLERGIES No Known Allergies Current Medications Current Outpatient Medications on File Prior to Visit Medication Sig metoprolol succinate ER (TOPROL XL) 100 mg Take 1 tablet by mouth once daily. amLODIPine (NORVASC) 5 mg tablet Take 1 tablet by mouth once daily. amLODIPine (NORVASC) 2.5 mg tablet Take one tablet daily along with 5 mg tablet lisinopril (ZESTRIL) 40 mg tablet Take 1 tablet by mouth once daily. pantoprazole DR (PROTONIX) 40 mg tablet Take 1 tablet by mouth two times a day. Take on empty stomach, 1/2 hr before meal. benzonatate (TESSALON PERLE) 100 mg capsule Take 1 capsule by mouth three times a day as needed. atorvastatin (LIPITOR) 20 mg tablet Take 1 tablet by mouth once daily. For cholesterol allopurinol (ZYLOPRIM) 100 mg tablet Take 2 tablets by mouth once daily. For gout. benzonatate (TESSALON PERLES) 100 mg capsule Take 1 capsule by mouth three times a day as needed for cough. acetaminophen (TYLENOL) 325 mg tablet Take 1 tablet by mouth every 4 hours as needed for pain. colchicine 0.6 mg tablet Take 2 tabs by mouth, followed by 1 tab one hour later for gout flare. May repeat in 1 week. naproxen (NAPROSYN) 500 mg tablet Take 1 tablet by mouth twice daily as needed (gout flare). Take with food. meclizine (ANTIVERT) 25 mg tab Take 1 tablet by mouth twice daily as needed. TAKE 1 TABLET BY MOUTH NEEDED. USES FOR TRAVELING ONLY. aspirin 81 mg chewable tablet Take 1 tablet by mouth once daily. No current facility-administered medications on file prior to visit. Social History Social History Tobacco Use Smoking status: Former Current packs/day: 0.00 Average packs/day: 1 pack/day for 15.0 (more content not included)...[facility]01-28-2025 History of Present illness Narrative* Samuel Foy MD - 11/04/2024 10:09 AM EST Chief Complaint Patient presents with: ER F/U: RSV HPI Kris Cox is a 74 year old male who presents here today for ER Follow Up.. Patient evaluated at [facility] ED on 10/26 for complaing of nausea/voimiting/diarrhea x 2 days along with fatigue and SOB. Workup in the ER was positive for RSV. CBC, CMP, lipase were normal. Lactic acid level elevated. CXR normal. CTA abdomen/pelvis obtained for complaint of dark emesis which was negative for signs of bleed. Discharged home with rx for zofran and bentyl and advised to follow up with our office. Patient states that symptoms improved the day following the ER visit and has not had vomiting or diarrhea since. States that he never had any hematemesis, hematochezia, or melena. States that when hevomited once it looked like he brought up a black piece of banana. Denies recent NSAID use. Has been getting reflux more frequently at night despite taking Protonix BID. Denies dysphagia, odynophagia, abdominal pain, early satiety, night sweats, fever/chills. History of gastric ulcers on EGD in 2021. Recommended f/u in 1 year for repeat which he is overdue for. Past medical history, appointments, medications, allergies reviewed. Previous Medical History PAST MEDICAL HISTORY Diagnosis Date AAA (abdominal aortic aneurysm) (HCC) Dr. Araujo- Multani's esophagus 2009 Needs repeat EGD 04/2023. CAD (coronary artery disease) 2002 stress test abnormal Diverticulosis Duodenal stricture Dr. Moran Duodenitis without mention of hemorrhage Erectile dysfunction Esophagitis, unspecified Gout History of colonoscopy HTN (hypertension) Hyperlipidemia Impaired fasting glucose Overweight (BMI 25.0-29.9) Vertigo Previous Surgical History PAST SURGICAL HISTORY Procedure Laterality Date CARDIAC CATH 04/30/2007 COLONOSCOPY FLX DX W/COLLJ SPEC WHEN PFRMD 10/25/2012 few diverticula - 10 year follow up COLONOSCOPY FLX DX W/COLLJ SPEC WHEN PFRMD 07/28/2020 Colonoscopy EGD 12/03/2009 dx barretts esophagus EGD 06/10/2009 h-pylori negative EGD BALLOON DILATION ESOPHAGUS <30 MM DIAM 01/30/2011 EGD TRANSORAL BIOPSY SINGLE/MULTIPLE 10/25/2012 duodenitis, gastric ulcer, gastritis, small hiatal hernia, multani's esophagitis EGD W/O [facility] SPEC VARICIES INJ 12/16/2021 ESOPHAGOGASTRODUODENOSCOPY TRANSORAL DIAGNOSTIC 07/28/2020 EGD EXPLORATORY SHOULDER SURGERY 1965 repair dislcoation. left FRACTURE SURGERY Left 1961 Fractured collar bone with surgery INCISE FINGER TENDON SHEATH Right 07/19/2023 Right index trigger finger release PAST SURGICAL HISTORY OF right and left meniscus surgeries of knee PAST SURGICAL HISTORY OF 2008 right middle finger trigger repair PAST SURGICAL HISTORY OF 08/02/2012 right ring trigger finger release PAST SURGICAL HISTORY OF 01/09/2014 Left 3rd finger trigger release TONSILLECTOMY HX Family History FAMILY HISTORY Problem Relation Age of Onset Cancer Mother liver Heart Father Lipids Father other (depression) Sister Multiple Sclerosis Brother Anesthesia Problems No Family History Patient Allergies ALLERGIES No Known Allergies Current Medications Current Outpatient Medications on File Prior to Visit Medication Sig metoprolol succinate ER (TOPROL XL) 100 mg Take 1 tablet by mouth once daily. amLODIPine (NORVASC) 5 mg tablet Take 1 tablet by mouth once daily. amLODIPine (NORVASC) 2.5 mg tablet Take one tablet daily along with 5 mg tablet lisinopril (ZESTRIL) 40 mg tablet Take 1 tablet by mouth once daily. pantoprazole DR (PROTONIX) 40 mg tablet Take 1 tablet by mouth two times a day. Take on empty stomach, 1/2 hr before meal. benzonatate (TESSALON PERLE) 100 mg capsule Take 1 capsule by mouth three times a day as needed. atorvastatin (LIPITOR) 20 mg tablet Take 1 tablet by mouth once daily. For cholesterol allopurinol (ZYLOPRIM) 100 mg tablet Take 2 tablets by mouth once daily. For gout. benzonatate (TESSALON PERLES) 100 mg capsule Take 1 capsule by mouth three times a day as needed for cough. acetaminophen (TYLENOL) 325 mg tablet Take 1 tablet by mouth every 4 hours as needed for pain. colchicine 0.6 mg tablet Take 2 tabs by mouth, followed by 1 tab one hour later for gout flare. Mayrepeat in 1 week. naproxen (NAPROSYN) 500 mg tablet Take 1 tablet by mouth twice daily as needed (gout flare). Take with food. meclizine (ANTIVERT) 25 mg tab Take 1 tablet by mouth twice daily as needed. TAKE 1 TABLET BY MOUTHAS NEEDED. USES FOR TRAVELING ONLY. aspirin 81 mg chewable tablet Take 1 tablet by mouth once daily. No current facility-administered medications on file prior to visit. Social History Social History Tobacco Use Smoking status: Former Current packs/day: 0.00 Average packs/day: 1 pack/day for 15.0 years (15.0 ttl pk-yrs) Types: Cigarettes Start date: 06/08/1987 Quit date: 06/08/2002 Years since quittin.4 Smokeless tobacco: Never Vaping Use Vaping status: Never Used Substance Use Topics Alcohol use: Yes Comment: very seldom, not even 1 drink per month Drug use: No Review of Symptoms REVIEW OF SYSTEMS See HPI EXAM: BP 120/64 Pulse 60 Resp 16 Wt 74.8 kg (164 lb 12.8 oz) SpO2 97% BMI 25.81 kg/m General Appearance: Well appearing, alert, in no acute distress, well-hydrated, well nourished.. Skin: Skin color, texture, turgor normal, no suspicious rashes or lesions. Lungs: Lungs clear to auscultation. No wheezing, rhonchi, rales.. Heart: RRR without murmur, gallop, or rubs. No ectopy. Abdomen: Normal abdominal exam, Abdomen soft, non-tender. Bowel sounds normal. No masses, organomegaly. Health Maintenance List Depression Screening Never done Anxiety Screening Never done Annual PCP Team Chronic Disease Visit due on 07/11/2025 BP Controlled (<130/80) due on 07/11/2025 LDL Cholesterol due on 07/14/2025 Diabetes Screening due on 07/02/2027 Lipid Screening due on 07/14/2029 Colorectal Cancer Screening due on 07/28/2030 DTaP,Tdap,Td Vaccine(3 - Td or Tdap) due on 07/11/2034 Influenza Vaccine Completed RSV Vaccine Completed Hepatitis C Screening Completed Shingrix Vaccine Completed Covid-19 Vaccine Completed Pneumococcal Vaccine: 50+ Completed Advance Directive Discussion Discontinued ASSESSMENT/PLAN: 1. RSV infection - ICD9: 079.6, ICD10: B33.8 (primary diagnosis) Resolved. Up to date on vaccination. - CONSULT TO GASTROENTEROLOGY 2. Nausea and vomiting, unspecified vomiting type - ICD9: 787.01, ICD10: R11.2 2/2 viral etiology and is resolved. 3. Gastroesophageal reflux disease, unspecified whether esophagitis present - ICD9: 530.81, ICD10: K21.9 - Discussed lifestyle modifications including losing weight, limiting caffeine, and no meals three hours before sleep - Begin treatment with Pepcid 20 mg QD - Continue treatment with Protonix BID - Refer for GI consult - CONSULT TO GASTROENTEROLOGY 4. Coffee ground emesis - ICD9: 578.0, ICD10: K92.0 Single episode of dark colored vomit. Overdue for EGD. Recheck labs and FOBT. Red flags for re-assessment reviewed with patient in detail. - COMPLETE BLOOD COUNT AND DIFFERENTIAL - COMPREHENSIVE METABOLIC PANEL - IMMUNOCHEMICAL FECAL OCCULT BLOOD TEST 5. History of gastric ulcer - ICD9: V12.79, ICD10: Z87.11 Overdue for EGD. F/u with GI. Samuel Foy MD documented in this encounterMer[facility] Telephone encounter Note * Telephone Encounter - Nini Barger - 10/27/2024 2:06 PM EST Prescription Refill Information The patient has been identified by name and date of : Yes Caregiver verified no other encounters exist for this prescription request: Yes Caregiver confirmed with patient/requestor that no other refills are due, in the near future, with this provider at this time: Yes The last office visit in the department: 07-11-24 Does the patient have a future office visit with this provider/department: Yes Requested Prescriptions Pending Prescriptions Disp Refills metoprolol succinate ER (TOPROL XL) 100 mg 90 tablet 1 Sig: Take 1 tablet by mouth once daily. Nini Barger October 27, 2024 2:[address] [facility]01-20-2025 Miscellaneous Notes* Telephone Encounter - Nini Barger - 10/27/2024 2:06 PM EST Prescription Refill Information The patient has been identified by name and date of : Yes Caregiver verified no other encounters exist for this prescription request: Yes Caregiver confirmed with patient/requestor that no other refills are due, in the near future, with this provider at this time: Yes The last office visit in the department: 07-11-24 Does the patient have a future office visit with this provider/department: Yes Requested Prescriptions Pending Prescriptions Disp Refills metoprolol succinate ER (TOPROL XL) 100 mg 90 tablet 1 Sig: Take 1 tablet by mouth once daily. Nini Barger October 27, 2024 2:07 PM documented in this encounterMer[facility] Telephone encounter Note * Telephone Encounter - Daisha Barrera LPN - 10/27/2024 8:43 AM EST Prescription Refill Information The patient has been identified by name and date of : Yes Caregiver verified no other encounters exist for this prescription request: Yes Caregiver confirmed with patient/requestor that no other refills are due, in the near future, with this provider at this time: Yes The last office visit in the department: 07/11/2024 Does the patient have a future office visit with this provider/department: Yes Requested Prescriptions Pending Prescriptions Disp Refills metoprolol succinate ER (TOPROL XL) 100 mg 90 tablet 1 Sig: Take 1 tablet by mouth once daily. Daisha Barrera LPN October 27, 2024 8:[address] [facility]01-20-2025 Miscellaneous Notes* Telephone Encounter - Daisha Barrera LPN - 10/27/2024 8:43 AM EST Prescription Refill Information The patient has been identified by name and date of : Yes Caregiver verified no other encounters exist for this prescription request: Yes Caregiver confirmed with patient/requestor that no other refills are due, in the near future, with this provider at this time: Yes The last office visit in the department: 07/11/2024 Does the patient have a future office visit with this provider/department: Yes Requested Prescriptions Pending Prescriptions Disp Refills metoprolol succinate ER (TOPROL XL) 100 mg 90 tablet 1 Sig: Take 1 tablet by mouth once daily. Daisha Barrera LPN October 27, 2024 8:43 AM documented in this encounterMer[facility]01[facility] History of Present illness Narrative* Felicia Combs RT(R) - 10/21/2024 9:00 AM EST Radiology Service Progress Note DATE OF SERVICE: October 21, 2024 TIME: 10:33 AM PATIENT IDENTITY VERIFICATION COMPLETED USING TWO (2) STANDARD IDENTIFIERS: Name and Date of confirmed by patient verbally. FALL SCREENING: Has the patient had 2 falls in the last year or 1 fall with injury or currently using an Ambulatory Assistive Device (Walker, Cane, Wheelchair, Crutches, etc.)? No PATIENT GENDER DATA: Assigned male at PATIENT RELEVANT IMPLANT DATA REVIEWED: Yes PATIENT PRESENTS WITH AN IMPLANTABLE OR ATTACHED REDIPPER: No ALLERGIES: Reviewed and unchanged CONTRAST ALLERGY: NO. EXAM: CT -CONTRAST INDUCED NEPHROPATHY RISK FACTORS: Patient age > 60 years CREATININE: Creatinine Date Value Ref Range Status 08/22/2024 0.84 0.73 - 1.22 mg/dL Final 07/02/2024 0.98 0.73 - 1.22 mg/dL Final 01/09/2024 1.00 0.73 - 1.22 mg/dL Final Estimated Glomerular Filtration Rate Date Value Ref Range Status 08/22/2024 91 >=60 mL/min/1.73m Final Comment: Estimated Glomerular Filtration Rate (eGFR) is calculated using the 2020 CKD-EPI creatinine equation. This equation utilizes serum creatinine, sex, and age as parameters. The creatinine assay has traceable calibration to isotope dilution- mass spectrometry. Refer to KDIGO guidelines for clinical interpretation. In patients with unstable renal function, e.g. those with acute kidney injury, the eGFRmay not accurately reflect actual GFR. eGFR- Date Value Ref Range Status 11/04/2021 >60 Final P.O.C.T. RESULTS: POC done: Yes, See Lab Tab October 21, 2024 TREATMENT: N/A PERIPHERAL IV DATA: Ambulatory: A peripheral IV was started in the Left antecubital site with a Angio cath: 18 gauge. RADIOLOGY DEPARTMENT: CT; Exam(s) Completed: CTA Abdomen Pelvis SIGNATURE: RT Solo(Candice) PATIENT NAME: Kris Cox DATE: October 21, 2024 TIME: 10:33 AM documented in this encounterMer[facility]01[facility]14[facility]2025 NoteHNO ID: [id number] Author: FELICIA COMBS RT(R) Service: ? Author Type: Senior Asp Net Developer Type: Progress Notes Filed: 10/21/2024 10:33 Note Text: Radiology Service Progress Note DATE OF SERVICE: October 21, 2024 TIME: 10:33 AM PATIENT IDENTITY VERIFICATION COMPLETED USING TWO (2) STANDARD IDENTIFIERS: Name and Date of confirmed by patient verbally. FALL SCREENING: Has the patient had 2 falls in the last year or 1 fall with injury or currently using an Ambulatory Assistive Device (Walker, Cane, Wheelchair, Crutches, etc.)? No PATIENT GENDER DATA: Assigned male at PATIENT RELEVANT IMPLANT DATA REVIEWED: Yes PATIENT PRESENTS WITH AN IMPLANTABLE OR ATTACHED REDIPPER: No ALLERGIES: Reviewed and unchanged CONTRAST ALLERGY: NO. EXAM: CT -CONTRAST INDUCED NEPHROPATHY RISK FACTORS: Patient age > 60 years CREATININE: Creatinine Date Value Ref Range Status 08/22/2024 0.84 0.73 - 1.22 mg/dL Final 07/02/2024 0.98 0.73 - 1.22 mg/dL Final 01/09/2024 1.00 0.73 - 1.22 mg/dL Final Estimated Glomerular Filtration Rate Date Value Ref Range Status 08/22/2024 91 >=60 mL/min/1.73m? Final Comment: Estimated Glomerular Filtration Rate (eGFR) is calculated using the 2020 CKD-EPI creatinine equation. This equation utilizes serum creatinine, sex, and age as parameters. The creatinine assay has traceable calibration to isotope dilution-mass spectrometry. Refer to KDIGO guidelines for clinical interpretation. In patients with unstable renal function, e.g. those with acute kidney injury, the eGFR may not accurately reflect actual GFR. eGFR- Date Value Ref Range Status 11/04/2021 >60 Final P.O.C.T. RESULTS: POC done: Yes, See Lab Tab October 21, 2024 TREATMENT: N/A PERIPHERAL IV DATA: Ambulatory: A peripheral IV was started in the Left antecubital site with a Angio cath: 18 gauge. RADIOLOGY DEPARTMENT: CT; Exam(s) Completed: CTA Abdomen Pelvis SIGNATURE: RT Solo(R) PATIENT NAME: Kris Cox DATE: October 21, 2024 TIME: 10:33 [facility]12-26-2024 Telephone encounter Note* Telephone Encounter - Lacey Webb MA - 10/02/2024 2:37 PM EST Prescription Refill Information The patient has been identified by name and date of : Yes Caregiver verified no other encounters exist for this prescription request: Yes Caregiver confirmed with patient/requestor that no other refills are due, in the near future, with this provider at this time: No The last office visit in the department: 07/08/24 Does the patient have a future office visit with this provider/department: Yes Requested Prescriptions Pending Prescriptions Disp Refills amLODIPine (NORVASC) 5 mg tablet 90 tablet 1 Sig: Take 1 tablet by mouth once daily. Lacey Webb MA October 02, 2024 2:[address] [facility]12-26-2024 Miscellaneous Notes* Telephone Encounter - Lacey Webb MA - 10/02/2024 2:37 PM EST Prescription Refill Information The patient has been identified by name and date of : Yes Caregiver verified no other encounters exist for this prescription request: Yes Caregiver confirmed with patient/requestor that no other refills are due, in the near future, with this provider at this time: No The last office visit in the department: 07/08/24 Does the patient have a future office visit with this provider/department: Yes Requested Prescriptions Pending Prescriptions Disp Refills amLODIPine (NORVASC) 5 mg tablet 90 tablet 1 Sig: Take 1 tablet by mouth once daily. Lacey Webb MA October 02, 2024 2:37 PM documented in this encounterMer[facility]11[facility]24 Telephone encounter Note * Telephone Encounter - Krish Sher LPN - 08/28/2024 11:54 AM EST The patient has been identified by name and date of : Yes Caregiver verified no other encounters exist for this prescription request: Yes Caregiver confirmed with patient/requestor that no other refills are due, in the near future, with this provider at this time: Yes The last office visit in the department: 07/11/2024 Does the patient have a future office visit with this provider/department: Yes 01/09/2025 Requested Prescriptions Pending Prescriptions Disp Refills lisinopril (ZESTRIL) 40 mg tablet 90 tablet 1 Sig: Take 1 tablet by mouth once daily. Krish Sher LPN August 28, 2024 11:[address] [facility]11-21-2024 Telephone encounter Note* Telephone Encounter - Krish Sher LPN - 08/28/2024 11:54 AM EST The patient has been identified by name and date of : Yes Caregiver verified no other encounters exist for this prescription request: Yes Caregiver confirmed with patient/requestor that no other refills are due, in the near future, with this provider at this time: Yes The last office visit in the department: 07/11/2024 Does the patient have a future office visit with this provider/department: Yes 08/28/2024 Requested Prescriptions Pending Prescriptions Disp Refills amLODIPine (NORVASC) 2.5 mg tablet 90 tablet 1 Sig: Take one tablet daily along with 5 mg tablet Krish Sher LPN August 28, 2024 11:[address] [facility]11-21-2024 Miscellaneous Notes* Telephone Encounter - Krish Sher LPN - 08/28/2024 11:54 AM EST The patient has been identified by name and date of : Yes Caregiver verified no other encounters exist for this prescription request: Yes Caregiver confirmed with patient/requestor that no other refills are due, in the near future, with this provider at this time: Yes The last office visit in the department: 07/11/2024 Does the patient have a future office visit with this provider/department: Yes 08/28/2024 Requested Prescriptions Pending Prescriptions Disp Refills amLODIPine (NORVASC) 2.5 mg tablet 90 tablet 1 Sig: Take one tablet daily along with 5 mg tablet Krish Sher LPN August 28, 2024 11:54 AM documented [facility] Miscellaneous Notes* Telephone Encounter - Krish Sher LPN - 08/28/2024 11:54 AM EST The patient has been identified by name and date of : Yes Caregiver verified no other encounters exist for this prescription request: Yes Caregiver confirmed with patient/requestor that no other refills are due, in the near future, with this provider at this time: Yes The last office visit in the department: 07/11/2024 Does the patient have a future office visit with this provider/department: Yes 01/09/2025 Requested Prescriptions Pending Prescriptions Disp Refills lisinopril (ZESTRIL) 40 mg tablet 90 tablet 1 Sig: Take 1 tablet by mouth once daily. Krish Sher LPN August 28, 2024 11:55 AM documented in [facility] encounter[facility] Telephone encounter Note * Telephone Encounter - Daisha Barrera LPN - 08/25/2024 1:39 PM EST Prescription Refill Information The patient has been identified by name and date of : Yes Caregiver verified no other encounters exist for this prescription request: Yes Caregiver confirmed with patient/requestor that no other refills are due, in the near future, with this provider at this time: Yes The last office visit in the department: 07/11/2024 Does the patient have a future office visit with this provider/department: Yes Requested Prescriptions Pending Prescriptions Disp Refills pantoprazole DR (PROTONIX) 40 mg tablet 180 tablet 1 Sig: Take 1 tablet by mouth two times a day. Take on empty stomach, 1/2 hr before meal. Daisha Barrera LPN August 25, 2024 1:[address] [facility]11-18-2024 Miscellaneous Notes* Telephone Encounter - Daisha Barrera LPN - 08/25/2024 1:39 PM EST Prescription Refill Information The patient has been identified by name and date of : Yes Caregiver verified no other encounters exist for this prescription request: Yes Caregiver confirmed with patient/requestor that no other refills are due, in the near future, with this provider at this time: Yes The last office visit in the department: 07/11/2024 Does the patient have a future office visit with this provider/department: Yes Requested Prescriptions Pending Prescriptions Disp Refills pantoprazole DR (PROTONIX) 40 mg tablet 180 tablet 1 Sig: Take 1 tablet by mouth two times a day. Take on empty stomach, 1/2 hr before meal. Daisha Barrera LPN August 25, 2024 1:39 PM documented in this encounterMer[facility] Telephone encounter Note * Telephone Encounter - Hina Lopez LPN - 08/01/2024 11:22 AM EDT There are refills on this medication left at pharmacy through October. Pt notified and script denied. [facility]10-25-2024 Miscellaneous Notes* Telephone Encounter - Hina Lopez LPN - 08/01/2024 11:22 AM EDT There are refills on this medication left at pharmacy through October. Pt notified and script denied. documented in this encounter[facility] Telephone encounter Note * Telephone Encounter - Ml Alba MA - 07/15/2024 9:08 AM EDT Solartrechart message sent to pt notifying him of results and recommendations below from Provider. Ml Alba MA [facility]10-08-2024 Miscellaneous Notes* Telephone Encounter - Ml Alba MA - 07/15/2024 9:08 AM EDT Mychart message sent to pt notifying him of results and recommendations below from Provider. Ml Alba MA * Telephone Encounter - Ml Alba MA - 07/15/2024 9:07 AM EDT ----- Message from Melanie Livingston APRN.PROFILE STITCHING MACHINE OPERATOR sent at 07/15/2024 7:07 AM EDT ----- Cholesterol in good range. Continue current medication, diet and exercise. Melanie Livingston APRN.PROFILE STITCHING MACHINE OPERATOR documented in this encounterMer[facility]24 Telephone encounter Note * Telephone Encounter - Ml Alba MA - 07/15/2024 9:07 AM EDT ----- Message from Melanie Livingston APRN.PROFILE STITCHING MACHINE OPERATOR sent at 07/15/2024 7:07 AM EDT ----- Cholesterol in good range. Continue current medication, diet and exercise. Melanie Livingston APRN.PROFILE STITCHING MACHINE OPERATOR [facility]10-04-2024 History of Present illness Narrative* Melanie Livingston APRN.INESSA - 07/11/2024 7:20 AM EDT 07/11/2024 Patient presents with: F/U 6 months SUBJECTIVE: This is a 74 year old that is here today for Above Complaints. Since last office appointment has been in good health without ER visits or hospitalizations. HTN: Patient is compliant with meds Yes Monitors bp at home: No. Denies side effects: Yes. Chest pain: No. Dyspnea: No. Edema: No. Palpitations: No. Syncope: No. Headache: No. Dizziness: No. HYPERLIPIDEMIA: Patient is taking medications: Yes. Patient is watching diet: No. Patient denies myalgias: Yes. Patient denies gi upset: Yes GOUT: taking Allopurinol as prescribed. No gout flares. CAD: does not follow with cardiology. Stress test a year ago WNL. Taking medications as prescribed without side effects. Follows with vascular for repair of infrarenal AAA repair which was completed on 09/05/2023- will have follow-up in October Seen a couple of weeks ago for diarrhea he developed after traveling to [place]. Has resolved. PAST MEDICAL HISTORY Diagnosis Date AAA (abdominal aortic aneurysm) (HCC) Dr. Araujo- Multani's esophagus 2009 Needs repeat EGD 04/2023. CAD (coronary artery disease) 2002 stress test abnormal Diverticulosis Duodenal stricture Dr. Moran Duodenitis without mention of hemorrhage Erectile dysfunction Esophagitis, unspecified Gout History of colonoscopy HTN (hypertension) Hyperlipidemia Impaired fasting glucose Overweight (BMI 25.0-29.9) Vertigo ALLERGIES Patient has no known allergies. MEDICATIONS Current Outpatient Medications Medication Sig benzonatate (TESSALON PERLE) 100 mg capsule Take 1 capsule by mouth three times a day as needed. atorvastatin (LIPITOR) 20 mg tablet Take 1 tablet by mouth once daily. For cholesterol allopurinol (ZYLOPRIM) 100 mg tablet Take 2 tablets by mouth once daily. For gout. benzonatate (TESSALON PERLES) 100 mg capsule Take 1 capsule by mouth three times a day as needed for cough. amLODIPine (NORVASC) 5 mg tablet Take 1 tablet by mouth once daily. amLODIPine (NORVASC) 2.5 mg tablet Take one tablet daily along with 5 mg tablet lisinopril (ZESTRIL) 40 mg tablet Take 1 tablet by mouth once daily. pantoprazole DR (PROTONIX) 40 mg tablet Take 1 tablet by mouth two times a day. Take on empty stomach, 1/2 hr before meal. metoprolol succinate ER (TOPROL XL) 100 mg Take 1 tablet by mouth once daily. acetaminophen (TYLENOL) 325 mg tablet Take 1 tablet by mouth every 4 hours as needed for pain. aspirin 81 mg chewable tablet Take 1 tablet by mouth once daily. colchicine 0.6 mg tablet Take 2 tabs by mouth, followed by 1 tab one hour later for gout flare. Mayrepeat in 1 week. naproxen (NAPROSYN) 500 mg tablet Take 1 tablet by mouth twice daily as needed (gout flare). Take with food. meclizine (ANTIVERT) 25 mg tab Take 1 tablet by mouth twice daily as needed. TAKE 1 TABLET BY MOUTHAS NEEDED. USES FOR TRAVELING ONLY. No current facility-administered medications for this visit. Medications and allergies reviewed by this provider. SOCIAL HISTORY Social History Tobacco Use Smoking status: Former Current packs/day: 0.00 Average packs/day: 1 pack/day for 15.0 years (15.0 ttl pk-yrs) Types: Cigarettes Start date: 06/08/1987 Quit date: 06/08/2002 Years since quittin.1 Smokeless tobacco: Never Vaping Use Vaping status: Never Used Substance Use Topics Alcohol use: Yes Comment: very seldom, not even 1 drink per month Drug use: No REVIEW OF SYSTEMS All other reviewed and negative other than HPI. OBJECTIVE: BP 122/70 Pulse 75 Resp 16 Wt 69 kg (152 lb 1.9 oz) SpO2 96% BMI 23.82 kg/m . Vital signsreviewed by this provider. APPEARANCE Well appearing, alert, in no acute distress, well-hydrated, well nourished. EYES conjunctiva and sclera normal. HEART RRR with normal S1 and S2, no murmurs, no gallops, no JVD appreciated LUNG clear to auscultation. No wheezes, rhonchi or rales EXTREMITIES Extremities normal, No deformities, No skin discoloration, and No edema SKIN Skin color, texture, turgor normal, no suspicious rashes or lesions to exposed skin Latest Ref Rng 07/02/2024 WBC 3.70 - 11.00 k/uL 11.46 (H) RBC 4.20 - 6.00 m/uL 4.65 Hemoglobin 13.0 - 17.0 g/dL 13.3 Hematocrit 39.0 - 51.0 % 41.3 MCV 80.0 - 100.0 fL 88.8 MCH 26.0 - 34.0 pg 28.6 MCHC 30.5 - 36.0 g/dL 32.2 RDW-CV 11.5 - 15.0 % 15.9 (H) Platelet Count 150 - 400 k/uL 378 MPV 9.0 - 12.7 fL 8.8 (L) Neut% % 72.9 Abs Neut (ANC) 1.45 - 7.50 k/uL 8.35 (H) Lymph% % 17.0 Abs Lymph 1.00 - 4.00 k/uL 1.95 [place]% % 6.5 Abs [place] <0.87 k/uL 0.75 Eosin% % 2.1 Abs Eosin <0.46 k/uL 0.24 Baso% % 1.0 Abs Baso <0.11 k/uL 0.11 (H) Immature Gran % % 0.5 IMMATURE GRANS (ABS) <0.10 k/uL 0.06 NRBC /100 WBC 0.0 Absolute nRBC <0.01 k/uL <0.01 DTYPE Auto Protein, Total 6.3 - 8.0 g/dL 6.7 Albumin 3.9 - 4.9 g/dL 3.9 Calcium 8.5 - 10.2 mg/dL 8.8 Bilirubin, Total 0.2 - 1.3 mg/dL 0.3 Alkaline Phosphatase 38 - 113 U/L 101 AST 14 - 40 U/L 22 ALT 10 - 54 U/L 16 Glucose 74 - 99 mg/dL 87 BUN 9 - 24 mg/dL 13 Creatinine 0.73 - 1.22 mg/dL 0.98 Sodium 136 - 144 mmol/L 140 Potassium 3.7 - 5.1 mmol/L 4.0 Chloride 98 - 107 mmol/L 103 CO2 22 - 30 mmol/L 23 Anion Gap 8 - 15 mmol/L 14 eGFR >=60 mL/min/1.73m 80 Latest Ref Rng 07/10/2023 Cholesterol, Total <200 mg/dL 138 Triglyceride <150 mg/dL 97 HDL Cholesterol >39 mg/dL 40 Non HDL Cholesterol <130 mg/dL 98 Fasting Time hrs 14 VLDL Cholesterol <30 mg/dL 19 TC:HDL Ratio <5.10 3.45 LDL Cholesterol <100 mg/dL 79 LDL:HDL Ratio <2.54 1.98 Latest Ref Rng 01/09/2024 Uric Acid 4.0 - 8.1 mg/dL 4.1 Legend: (H) High (L) Low ASSESSMENT/PLAN: 1. Essential hypertension - ICD9: 401.9, ICD10: I10 (primary diagnosis) - Controlled - Continue current medications - Recommend home blood pressure monitoring, to bring results to next visit - Encouraged sodium restriction, DASH or Mediterranean diet - Recommend regular aerobic exercise - Follow up in 6 months for hypertension visit 2. Gout, unspecified cause, unspecified chronicity, unspecified site - ICD9: 274.9, ICD10: M10.9 - stable on current regime - follow-up in 6 months, sooner if needed 3. Infrarenal abdominal aortic aneurysm (AAA) without rupture (HCC) - ICD9: 441.4, ICD10: I71.43 - stable - follow-up with vascular medicine as recommended 4. Mixed hyperlipidemia - ICD9: 272.2, ICD10: E78.2 - Control undetermined, due for labs - Continue current medications - Counseled on healthy diet and regular exercise - Follow up in 6 months, sooner should any other issues arise. - LIPID PANEL BASIC 5. 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, unspecified vessel or lesion type - ICD9: 414.01, ICD10: I25.10 - stable - continue current medications - LIPID PANEL BASIC - follow-up in 6 months sooner if needed 6. Encounter for immunization - ICD9: V03.89, ICD10: Z23 - INFLUENZA VACCINE, PRSV FREE, AGE 65+ YR, HIGH DOSE, TRIVALENT (FLUZONE HIGH-DOSE) - [employer] COVID-19 VACCINE AGE 12+ YR (COMIRNATY) Melanie Livingston APRN.PROFILE STITCHING MACHINE OPERATOR Prescription instructions reviewed with patient as applicable. Patient advised if symptoms do not improve or if symptoms worsen sooner, to contact their primary care physician. Potential red flag symptoms discussed with the patient. Reviewed appropriate action plan to take if red flag symptoms occur. Patient agreeable to treatment plan. Medical Decision Making: Problems: Moderate: 2+ stable chronic illnesses Data: Unique test(s) ordered: 1 Risk: Moderate: Drug management and Moderate risk from testing/treatment Medical Decision Making Level: 4 - Moderate documented in this encounterMer[facility]24 NoteHNO ID: [id number] Author: MELANIE LIVINGSTON APRN.INESSA Service: ? Author Type: Nurse Practitioner Type: Progress Notes Filed: 07/11/2024 08:32 Note Text: 07/11/2024 Patient presents with: F/U 6 months SUBJECTIVE: This is a 74 year old that is here today for Above Complaints. Since last office appointment has been in good health without ER visits or hospitalizations. HTN: Patient is compliant with meds Yes Monitors bp at home: No. Denies side effects: Yes. Chest pain: No. Dyspnea: No. Edema: No. Palpitations: No. Syncope: No. Headache: No. Dizziness: No. HYPERLIPIDEMIA: Patient is taking medications: Yes. Patient is watching diet: No. Patient denies myalgias: Yes. Patient denies gi upset: Yes GOUT: taking Allopurinol as prescribed. No gout flares. CAD: does not follow with cardiology. Stress test a year ago WNL. Taking medications as prescribed without side effects. Follows with vascular for repair of infrarenal AAA repair which was completed on 09/05/2023- will have follow-up in October Seen a couple of weeks ago for diarrhea he developed after traveling to [place]. Has resolved. PAST MEDICAL HISTORY Diagnosis Date AAA (abdominal aortic aneurysm) (HCC) Dr. Araujo- Multani's esophagus 2009 Needs repeat EGD 04/2023. CAD (coronary artery disease) 2002 stress test abnormal Diverticulosis Duodenal stricture Dr. Moran Duodenitis without mention of hemorrhage Erectile dysfunction Esophagitis, unspecified Gout History of colonoscopy HTN (hypertension) Hyperlipidemia Impaired fasting glucose Overweight (BMI 25.0-29.9) Vertigo ALLERGIES Patient has no known allergies. MEDICATIONS Current Outpatient Medications Medication Sig benzonatate (TESSALON PERLE) 100 mg capsule Take 1 capsule by mouth three times a day as needed. atorvastatin (LIPITOR) 20 mg tablet Take 1 tablet by mouth once daily. For cholesterol allopurinol (ZYLOPRIM) 100 mg tablet Take 2 tablets by mouth once daily. For gout. benzonatate (TESSALON PERLES) 100 mg capsule Take 1 capsule by mouth three times a day as needed for cough. amLODIPine (NORVASC) 5 mg tablet Take 1 tablet by mouth once daily. amLODIPine (NORVASC) 2.5 mg tablet Take one tablet daily along with 5 mg tablet lisinopril (ZESTRIL) 40 mg tablet Take 1 tablet by mouth once daily. pantoprazole DR (PROTONIX) 40 mg tablet Take 1 tablet by mouth two times a day. Take on empty stomach, 1/2 hr before meal. metoprolol succinate ER (TOPROL XL) 100 mg Take 1 tablet by mouth once daily. acetaminophen (TYLENOL) 325 mg tablet Take 1 tablet by mouth every 4 hours as needed for pain. aspirin 81 mg chewable tablet Take 1 tablet by mouth once daily. colchicine 0.6 mg tablet Take 2 tabs by mouth, followed by 1 tab one hour later for gout flare. May repeat in 1 week. naproxen (NAPROSYN) 500 mg tablet Take 1 tablet by mouth twice daily as needed (gout flare). Take with food. meclizine (ANTIVERT) 25 mg tab Take 1 tablet by mouth twice daily as needed. TAKE 1 TABLET BY MOUTH NEEDED. USES FOR TRAVELING ONLY. No current facility-administered medications for this visit. Medications and allergies reviewed by this provider. SOCIAL HISTORY Social History Tobacco Use Smoking status: Former Current packs/day: 0.00 Average packs/day: 1 pack/day for 15.0 years (15.0 ttl pk-yrs) Types: Cigarettes Start date: 06/08/1987 Quit date: 06/08/2002 Years since quittin.1 Smokeless tobacco: Never Vaping Use Vaping status: Never Used Substance Use Topics Alcohol use: Yes Comment: very seldom, not even 1 drink per month Drug use: No REVIEW OF SYSTEMS All other reviewed and negative other than HPI. OBJECTIVE: BP 122/70 Pulse 75 Resp 16 Wt 69 kg (152 lb 1.9 oz) SpO2 96% BMI 23.82 kg/m? . Vital signs reviewed by this provider. APPEARANCE Well appearing, alert, in no acute distress, well-hydrated, well nourished. EYES conjunctiva and sclera normal. HEART RRR with normal S1 and S2, no murmurs, no gallops, no JVD appreciated LUNG clear to auscultation. No wheezes, rhonchi or rales EXTREMITIES Extremities normal, No deformities, No skin discoloration, and No edema SKIN Skin color, texture, turgor normal, no suspicious rashes or lesions to exposed skin Latest Ref Rng 07/02/2024 WBC 3.70 - 11.00 k/uL 11.46 (H) RBC 4.20 - 6.00 m/uL 4.65 Hemoglobin 13.0 - 17.0 g/dL 13.3 Hematocrit 39.0 - 51.0 % 41.3 MCV 80.0 - 100.0 fL 88.8 MCH 26.0 - 34.0 pg 28.6 MCHC 30.5 - 36.0 g/dL 32.2 RDW-CV 11.5 - 15.0 % 15.9 (H) Platelet Count 150 - 400 k/uL 378 MPV 9.0 - 12.7 fL 8.8 (L) Neut% % 72.9 Abs Neut (ANC) 1.45 - 7.50 k/uL 8.35 (H) Lymph% % 17.0 Abs Lymph 1.00 - 4.00 k/uL 1.95 [place]% % 6.5 Abs [place] <0.87 k/uL 0.75 Eosin% % 2.1 Abs Eosin <0.46 k/uL 0.24 Baso% % 1.0 Abs Baso <0.11 k/uL 0.11 (H) Immature Gran % % 0.5 IMMATURE GRANS (ABS) <0.10 k/uL 0.06 NRBC /100 WBC 0.0 Absolute (more content not included)...[facility]10-01-2024 Telephone encounter Note* Telephone Encounter - Samuel Foy MD - 07/08/2024 3:27 PM EDT Reviewed. [facility]10-01-2024 Miscellaneous Notes* Telephone Encounter - Samuel Foy MD - 07/08/2024 3:27 PM EDT Reviewed. * Telephone Encounter - Patricia Fraser LPN - 07/08/2024 2:43 PM EDT Phoned patient and went over results, notes from Dr Foy with understanding. Patient said diarrhea is 80% better, he has follow up appt on 07/11 with Melanie. * Telephone Encounter - Patricia Fraser LPN - 07/08/2024 2:40 PM EDT ----- Message from Samuel Foy MD sent at 07/08/2024 1:02 PM EDT ----- Stool for ova and parasites is negative. Any improvement in his diarrhea with the azithromycin? documented in this encounterMer[facility] Telephone encounter Note * Telephone Encounter - Patricia Fraser LPN - 07/08/2024 2:43 PM EDT Phoned patient and went over results, notes from Dr Foy with understanding. Patient said diarrhea is 80% better, he has follow up appt on 07/11 with Melanie[address] [facility]10-01-2024 Telephone encounter Note* Telephone Encounter - Patricia Fraser LPN - 07/08/2024 2:40 PM EDT ----- Message from Samuel Foy MD sent at 07/08/2024 1:02 PM EDT ----- Stool for ova and parasites is negative. Any improvement in his diarrhea with the azithromycin? [facility]09-26-2024 Telephone encounter Note* Telephone Encounter - Shira Noel LPN - 07/03/2024 11:18 AM EDT Phoned patient and reviewed results and recommendations with him. Patient voiced understanding. Shira Noel LPN [facility]09-26-2024 Miscellaneous Notes* Telephone Encounter - Shira Noel LPN - 07/03/2024 11:18 AM EDT Phoned patient and reviewed results and recommendations with him. Patient voiced understanding. hSira Noel LPN * Telephone Encounter - Shira Noel LPN - 07/03/2024 11:10 AM EDT ----- Message from Samuel Foy MD sent at 07/03/2024 8:39 AM EDT ----- Mild elevation in WBC and neutrophils which could be a sign of infection or inflammation. Awaiting stool studies. Other labs normal. Continue treatment as discussed in office. documented in this encounterMer[facility] Telephone encounter Note * Telephone Encounter - Shira Noel LPN - 07/03/2024 11:10 AM EDT ----- Message from Samuel Foy MD sent at 07/03/2024 8:39 AM EDT ----- Mild elevation in WBC and neutrophils which could be a sign of infection or inflammation. Awaiting stool studies. Other labs normal. Continue treatment as discussed in office. [facility]09-26-2024 Telephone encounter Note* Telephone Encounter - Krish Sher LPN - 07/03/2024 9:56 AM EDT Spoke with pt and information listed below given. Pt verbalizes understanding. Krish Sher LPN [facility]09-26-2024 Miscellaneous Notes* Telephone Encounter - Krish Sher LPN - 07/03/2024 9:56 AM EDT Spoke with pt and information listed below given. Pt verbalizes understanding. Krish Sher LPN * Telephone Encounter - Kasey Berg RN - 07/03/2024 8:55 AM EDT Called and left a voicemail for the Patient to call back and ask for a nurse to receive the providers message. Kasey Berg RN * Telephone Encounter - Samuel Foy MD - 07/03/2024 8:41 AM EDT Stool culture positive for campylobacter. Negative testing for C diff. Awaiting other cultures still. Will treat with Azithromycin 500 mg daily x 3 days while awaiting other results. Call if symptoms not improving in 5-7 days. documented in [address] encounterMer[facility] Telephone encounter Note * Telephone Encounter - Kasey Berg RN - 07/03/2024 8:55 AM EDT Called and left a voicemail for the Patient to call back and ask for a nurse to receive the providers message. Kasey Berg RN [facility]09-26-2024 Telephone encounter Note* Telephone Encounter - Samuel Foy MD - 07/03/2024 8:41 AM EDT Stool culture positive for campylobacter. Negative testing for C diff. Awaiting other cultures still. Will treat with Azithromycin 500 mg daily x 3 days while awaiting other results. Call if symptoms not improving in 5-[address] [facility]09-25-2024 NoteHNO ID: [id number] Author: SAMUEL FOY MD Service: ? Author Type: Physician Type: Progress Notes Filed: 07/02/2024 09:27 Note Text: Chief Complaint Patient presents with: Follow Up: diarrhea since 06/18/24 seen in [facility], patient came back from [place] on 06/15/24 HPI Kris Cox is a 74 year old male who presents here today for Above Complaints.. Patient evaluated in on 06/23 for complaint of cough, diarrhea, and congestin with following HPI: 74-year-old male presents for cough, diarrhea, congestion. Patient states he has had cough and chest congestion for the past 4 days. He is coughing up green phlegm. He denies any chest pain or shortness of breath. He does not really have nasal congestion. No sore throat. No fevers. He states he has had diarrhea for the past few days as well. No abdominal pain. No blood in the stool. No vomiting. Still able to eat and drink. He states he recently traveled to [place]. May have been in contact with sick contacts. Nobody else at home has similar symptoms. Patient did have COVID about 2 months ago and states that this feels similar. No other complaint. COVID/flu/RSV and CXR negative. Started on tessalon and advised BRAT diet and pushing PO fluids. Today, he states that cough and congestion has mostly cleared up and just has mild cough now. Watery diarrhea has also improved in the last 2-3 days, but is still loose. Getting about 1 episode per day of muddy water looking stools. Associated with increased gas without bloating or abdominal pain. Treated with imodium without improvement. Denies fever/chills, nausea, vomiting, hematochezia, melena. No sick contacts with similar symptoms. Tolerating PO diet. No abx in the last 6 months. Did visit a long-term 1-2 days before symptoms started. No recent hospitalizations. Did not eat any exotic or raw foods overseas. Notes that when diarrhea started he had foul smelling stools with mucous more than 5 times per day. Past medical history, appointments, medications, allergies reviewed. Previous Medical History PAST MEDICAL HISTORY Diagnosis Date AAA (abdominal aortic aneurysm) (HCC) Dr. Araujo- Multani's esophagus 2009 Needs repeat EGD 04/2023. CAD (coronary artery disease) 2002 stress test abnormal Diverticulosis Duodenal stricture Dr. Moran Duodenitis without mention of hemorrhage Erectile dysfunction Esophagitis, unspecified Gout History of colonoscopy HTN (hypertension) Hyperlipidemia Impaired fasting glucose Overweight (BMI 25.0-29.9) Vertigo Previous Surgical History PAST SURGICAL HISTORY Procedure Laterality Date CARDIAC CATH 04/30/2007 COLONOSCOPY FLX DX W/COLLJ SPEC WHEN PFRMD 10/25/2012 few diverticula - 10 year follow up COLONOSCOPY FLX DX W/COLLJ SPEC WHEN PFRMD 07/28/2020 Colonoscopy EGD 12/03/2009 dx barretts esophagus EGD 06/10/2009 h-pylori negative EGD BALLOON DILATION ESOPHAGUS <30 MM DIAM 01/30/2011 EGD TRANSORAL BIOPSY SINGLE/MULTIPLE 10/25/2012 duodenitis, gastric ulcer, gastritis, small hiatal hernia, multani's esophagitis EGD W/O [facility] SPEC VARICIES INJ 12/16/2021 ESOPHAGOGASTRODUODENOSCOPY TRANSORAL DIAGNOSTIC 07/28/2020 EGD EXPLORATORY SHOULDER SURGERY 1965 repair dislcoation. left FRACTURE SURGERY Left 196 Fractured collar bone with surgery INCISE FINGER TENDON SHEATH Right 07/19/2023 Right index trigger finger release PAST SURGICAL HISTORY OF right and left meniscus surgeries of knee PAST SURGICAL HISTORY OF 2008 right middle finger trigger repair PAST SURGICAL HISTORY OF 08/02/2012 right ring trigger finger release PAST SURGICAL HISTORY OF 01/09/2014 Left 3rd finger trigger release TONSILLECTOMY HX Family History FAMILY HISTORY Problem Relation Age of Onset Cancer Mother liver Heart Father Lipids Father other (depression) Sister Multiple Sclerosis Brother Anesthesia Problems No Family History Patient Allergies ALLERGIES No Known Allergies Current Medications Current Outpatient Medications on File Prior to Visit Medication Sig benzonatate (TESSALON PERLE) 100 mg capsule Take 1 capsule by mouth three times a day as needed. atorvastatin (LIPITOR) 20 mg tablet Take 1 tablet by mouth once daily. For cholesterol allopurinol (ZYLOPRIM) 100 mg tablet Take 2 tablets by mouth once daily. For gout. benzonatate (TESSALON PERLES) 100 mg capsule Take 1 capsule by mouth three times a day as needed for cough. amLODIPine (NORVASC) 5 mg tablet Take 1 tablet by mouth once daily. amLODIPine (NORVASC) 2.5 mg tablet Take one tablet daily along with 5 mg tablet lisinopril (ZESTRIL) 40 mg tablet Take 1 tablet by mouth once daily. pantoprazole DR (PROTONIX) 40 mg tablet Take 1 tablet by mouth two times a day. Take on empty stomach, 1/2 hr before meal. metoprolol succinate ER (TOPROL XL) 100 mg Take 1 tablet by mouth once daily. acetaminophen (TYLENOL) 325 mg t (more content not included)...[facility]09-25-2024 History of Present illness Narrative* Samuel Foy MD - 07/02/2024 8:37 AM EDT Chief Complaint Patient presents with: Follow Up: diarrhea since 06/18/24 seen in [facility], patient came [place] from [place] on 06/15/24 HPI Kris Cox is a 74 year old male who presents here today for Above Complaints.. Patient evaluated in on 06/23 for complaint of cough, diarrhea, and congestin with following HPI: 74-year-old male presents for cough, diarrhea, congestion. Patient states he has had cough and chest congestion for the past 4 days. He is coughing up green phlegm. He denies any chest pain or shortness of breath. He does not really have nasal congestion. No sore throat. No fevers. He states he hashad diarrhea for the past few days as well. No abdominal pain. No blood in the stool. No vomiting. Still able to eat and drink. He states he recently traveled to [place]. May have been in contact withsick contacts. Nobody else at home has similar symptoms. Patient did have COVID about 2 months ago and states that this feels similar. No other complaint. COVID/flu/RSV and CXR negative. Started on tessalon and advised BRAT diet and pushing PO fluids. Today, he states that cough and congestion has mostly cleared up and just has mild cough now. Watery diarrhea has also improved in the last 2-3 days, but is still loose. Getting about 1 episode per day of muddy water looking stools. Associated with increased gas without bloating or abdominal pain. Treated with imodium without improvement. Denies fever/chills, nausea, vomiting, hematochezia, melena. No sick contacts with similar symptoms. Tolerating PO diet. No abx in the last 6 months. Did visit a long-term 1-2 days before symptoms started. No recent hospitalizations. Did not eat any exotic or raw foods overseas. Notes that when diarrhea started he had foul smelling stools with mucous more than 5 times per day. Past medical history, appointments, medications, allergies reviewed. Previous Medical History PAST MEDICAL HISTORY Diagnosis Date AAA (abdominal aortic aneurysm) ([facility]) Dr. Araujo- Multani's esophagus 2009 Needs repeat EGD 04/2023. CAD (coronary artery disease) 2002 stress test abnormal Diverticulosis Duodenal stricture Dr. Moran Duodenitis without mention of hemorrhage Erectile dysfunction Esophagitis, unspecified Gout History of colonoscopy HTN (hypertension) Hyperlipidemia Impaired fasting glucose Overweight (BMI 25.0-29.9) Vertigo Previous Surgical History PAST SURGICAL HISTORY Procedure Laterality Date CARDIAC CATH 04/30/2007 COLONOSCOPY FLX DX W/COLLJ SPEC WHEN PFRMD 10/25/2012 few diverticula - 10 year follow up COLONOSCOPY FLX DX W/COLLJ SPEC WHEN PFRMD 07/28/2020 Colonoscopy EGD 12/03/2009 dx barretts esophagus EGD 06/10/2009 h-pylori negative EGD BALLOON DILATION ESOPHAGUS <30 MM DIAM 01/30/2011 EGD TRANSORAL BIOPSY SINGLE/MULTIPLE 10/25/2012 duodenitis, gastric ulcer, gastritis, small hiatal hernia, multani's esophagitis EGD W/O [facility] SPEC VARICIES INJ 12/16/2021 ESOPHAGOGASTRODUODENOSCOPY TRANSORAL DIAGNOSTIC 07/28/2020 EGD EXPLORATORY SHOULDER SURGERY 1965 repair dislcoation. left FRACTURE SURGERY Left 1961 Fractured collar bone with surgery INCISE FINGER TENDON SHEATH Right 07/19/2023 Right index trigger finger release PAST SURGICAL HISTORY OF right and left meniscus surgeries of knee PAST SURGICAL HISTORY OF 2008 right middle finger trigger repair PAST SURGICAL HISTORY OF 08/02/2012 right ring trigger finger release PAST SURGICAL HISTORY OF 01/09/2014 Left 3rd finger trigger release TONSILLECTOMY HX Family History FAMILY HISTORY Problem Relation Age of Onset Cancer Mother liver Heart Father Lipids Father other (depression) Sister Multiple Sclerosis Brother Anesthesia Problems No Family History Patient Allergies ALLERGIES No Known Allergies Current Medications Current Outpatient Medications on File Prior to Visit Medication Sig benzonatate (TESSALON PERLE) 100 mg capsule Take 1 capsule by mouth three times a day as needed. atorvastatin (LIPITOR) 20 mg tablet Take 1 tablet by mouth once daily. For cholesterol allopurinol (ZYLOPRIM) 100 mg tablet Take 2 tablets by mouth once daily. For gout. benzonatate (TESSALON PERLES) 100 mg capsule Take 1 capsule by mouth three times a day as needed for cough. amLODIPine (NORVASC) 5 mg tablet Take 1 tablet by mouth once daily. amLODIPine (NORVASC) 2.5 mg tablet Take one tablet daily along with 5 mg tablet lisinopril (ZESTRIL) 40 mg tablet Take 1 tablet by mouth once daily. pantoprazole DR (PROTONIX) 40 mg tablet Take 1 tablet by mouth two times a day. Take on empty stomach, 1/2 hr before meal. metoprolol succinate ER (TOPROL XL) 100 mg Take 1 tablet by mouth once daily. acetaminophen (TYLENOL) 325 mg tablet Take 1 tablet by mouth every 4 hours as needed for pain. aspirin 81 mg chewable tablet Take 1 tablet by mouth once daily. colchicine 0.6 mg tablet Take 2 tabs by mouth, followed by 1 tab one hour later for gout flare. Mayrepeat in 1 week. naproxen (NAPROSYN) 500 mg tablet Take 1 tablet by mouth twice daily as needed (gout flare). Take with food. meclizine (ANTIVERT) 25 mg tab Take 1 tablet by mouth twice daily as needed. TAKE 1 TABLET BY MOUTHAS NEEDED. USES FOR TRAVELING ONLY. No current facility-administered medications on file prior to visit. Social History Social History Tobacco Use Smoking status: Former Current packs/day: 0.00 Average packs/day: 1 pack/day for 15.0 years (15.0 ttl pk-yrs) Types: Cigarettes Start date: 06/08/1987 Quit date: 06/08/2002 Years since quittin.0 Smokeless tobacco: Never Vaping Use Vaping status: Never Used Substance Use Topics Alcohol use: Yes Comment: very seldom, not even 1 drink per month Drug use: No Review of Symptoms REVIEW OF SYSTEMS See HPI EXAM: BP 130/62 (BP Site: Left Arm, BP Position: Sitting, BP Cuff Size: Large Adult) Pulse (!) 59 Temp 37.1 C (98.7 F) Resp 12 Ht 170.2 cm (5' 7) Wt 68.5 kg (151 lb) SpO2 98% BMI 23.65 kg/m General Appearance: Well appearing, alert, in no acute distress, well-hydrated, well nourished.. Skin: Skin color, texture, turgor normal, no suspicious rashes or lesions. Lungs: Lungs clear to auscultation. No wheezing, rhonchi, rales.. Heart: RRR without murmur, gallop, or rubs. No ectopy. Abdomen: Normal abdominal exam, Abdomen soft, non-tender. Bowel sounds normal. No masses, organomegaly. Health Maintenance List Depression Screening Never done Anxiety Screening Never done DTaP,Tdap,Td Vaccine(2 - Td or Tdap) due on 03/21/2022 Covid-19 Vaccine( season) due on 06/08/2024 Influenza Vaccine(1) due on 06/08/2024 LDL Cholesterol due on 07/10/2024 Annual PCP Team Chronic Disease Visit due on 01/08/2025 BP Controlled (<130/80) due on 06/23/2025 Diabetes Screening due on 01/08/2027 Lipid Screening due on 07/10/2028 Colorectal Cancer Screening due on 07/28/2030 RSV Vaccine Completed Hepatitis C Screening Completed Shingrix Vaccine Completed Pneumococcal Vaccine: 65+ Completed Advance Directive Discussion Discontinued ASSESSMENT/PLAN: 1. Diarrhea, unspecified type - ICD9: 787.91, ICD10: R19.7 Recent travel with persistent diarrhea. Obtain labs and stool cultures as ordered. Discussed pushing fluids, bland diet. Red flags for re-assessment reviewed with patient in detail. - COMPLETE BLOOD COUNT AND DIFFERENTIAL - COMPREHENSIVE METABOLIC PANEL - ENTERIC BACTERIAL PANEL BY PCR - FECAL LACTOFERRIN/LEUKOCYTES - C. DIFFICILE PCR - OVA + PARA MICROSCOPIC Samuel Foy MD documented [facility] History of Present illness Narrative* Robb Portillo RT(R) - 06/23/2024 8:00 AM EDT Radiology Service Progress Note PATIENT NAME: Kris Cox DATE OF SERVICE: June 23, 2024 TIME: 8:10 AM PATIENT IDENTITY VERIFICATION COMPLETED USING TWO (2) IDENTIFIERS: Name and Date of confirmedby patient verbally. FALL SCREENING: Has the patient had 2 falls in the last year or 1 fall with injury or currently using an Ambulatory Assistive Device (Walker, Cane, Wheelchair, Crutches, etc.)? No PATIENT GENDER DATA: Male PATIENT RELEVANT IMPLANT DATA REVIEWED: Yes PATIENT PRESENTS WITH AN IMPLANTABLE OR ATTACHED REDIPPER: No RADIOLOGY DEPARTMENT: General X-ray: Exam(s) Completed: Chest X-Ray PERIPHERAL IV DATA: Not applicable SIGNED BY: STEPHANIE Barron) June 23, 2024 8:10 AM documented in this encounterMer[facility]2024 NoteHNO ID: [id number] Author: ROBB PORTILLO RT (R) Service: Radiology Author Type: Technologist Type: Progress Notes Filed: 06/23/2024 08:15 Note Text: Radiology Service Progress Note PATIENT NAME: Kris Cox DATE OF SERVICE: June 23, 2024 TIME: 8:10 AM PATIENT IDENTITY VERIFICATION COMPLETED USING TWO (2) IDENTIFIERS: Name and Date of confirmed by patient verbally. FALL SCREENING: Has the patient had 2 falls in the last year or 1 fall with injury or currently using an Ambulatory Assistive Device (Walker, Cane, Wheelchair, Crutches, etc.)? No PATIENT GENDER DATA: Male PATIENT RELEVANT IMPLANT DATA REVIEWED: Yes PATIENT PRESENTS WITH AN IMPLANTABLE OR ATTACHED REDIPPER: No RADIOLOGY DEPARTMENT: General X-ray: Exam(s) Completed: Chest X-Ray PERIPHERAL IV DATA: Not applicable SIGNED BY: STEPHANIE Barron) June 23, 2024 8:10 [facility]09-16-2024 NoteHNO ID: [id number] Author: GANESH PADILLA PA Service: ? Author Type: Physician Splicer Apprentice Type: Progress Notes Filed: 06/23/2024 08:32 Note Text: This note was created using [employer]. Subjective Kris Cox is a 74 year old male. HPI 74-year-old male presents for cough, diarrhea, congestion. Patient states he has had cough and chest congestion for the past 4 days. He is coughing up green phlegm. He denies any chest pain or shortness of breath. He does not really have nasal congestion. No sore throat. No fevers. He states he has had diarrhea for the past few days as well. No abdominal pain. No blood in the stool. No vomiting. Still able to eat and drink. He states he recently traveled to [place]. May have been in contact with sick contacts. Nobody else at home has similar symptoms. Patient did have COVID about 2 months ago and states that this feels similar. No other complaint. PAST MEDICAL HISTORY Diagnosis Date AAA (abdominal aortic aneurysm) ([facility]) Dr. Araujo- Multani's esophagus 2009 Needs repeat EGD 04/2023. CAD (coronary artery disease) 2002 stress test abnormal Diverticulosis Duodenal stricture Dr. Moran Duodenitis without mention of hemorrhage Erectile dysfunction Esophagitis, unspecified Gout History of colonoscopy HTN (hypertension) Hyperlipidemia Impaired fasting glucose Overweight (BMI 25.0-29.9) Vertigo PAST SURGICAL HISTORY Procedure Laterality Date CARDIAC CATH 04/30/2007 COLONOSCOPY FLX DX W/COLLJ SPEC WHEN PFRMD 10/25/2012 few diverticula - 10 year follow up COLONOSCOPY FLX DX W/COLLJ SPEC WHEN PFRMD 07/28/2020 Colonoscopy EGD 12/03/2009 dx barretts esophagus EGD 06/10/2009 h-pylori negative EGD BALLOON DILATION ESOPHAGUS <30 MM DIAM 01/30/2011 EGD TRANSORAL BIOPSY SINGLE/MULTIPLE 10/25/2012 duodenitis, gastric ulcer, gastritis, small hiatal hernia, multani's esophagitis EGD W/O [facility] SPEC VARICIES INJ 12/16/2021 ESOPHAGOGASTRODUODENOSCOPY TRANSORAL DIAGNOSTIC 07/28/2020 EGD EXPLORATORY SHOULDER SURGERY 1965 repair dislcoation. left FRACTURE SURGERY Left 1961 Fractured collar bone with surgery INCISE FINGER TENDON SHEATH Right 07/19/2023 Right index trigger finger release PAST SURGICAL HISTORY OF right and left meniscus surgeries of knee PAST SURGICAL HISTORY OF 2008 right middle finger trigger repair PAST SURGICAL HISTORY OF 08/02/2012 right ring trigger finger release PAST SURGICAL HISTORY OF 01/09/2014 Left 3rd finger trigger release TONSILLECTOMY HX ALLERGIES Patient has no known allergies. MEDICATIONS atorvastatin (LIPITOR) 20 mg tablet Take 1 tablet by mouth once daily. For cholesterol allopurinol (ZYLOPRIM) 100 mg tablet Take 2 tablets by mouth once daily. For gout. benzonatate (TESSALON PERLES) 100 mg capsule Take 1 capsule by mouth three times a day as needed for cough. amLODIPine (NORVASC) 5 mg tablet Take 1 tablet by mouth once daily. amLODIPine (NORVASC) 2.5 mg tablet Take one tablet daily along with 5 mg tablet lisinopril (ZESTRIL) 40 mg tablet Take 1 tablet by mouth once daily. pantoprazole DR (PROTONIX) 40 mg tablet Take 1 tablet by mouth two times a day. Take on empty stomach, 1/2 hr before meal. metoprolol succinate ER (TOPROL XL) 100 mg Take 1 tablet by mouth once daily. acetaminophen (TYLENOL) 325 mg tablet Take 1 tablet by mouth every 4 hours as needed for pain. colchicine 0.6 mg tablet Take 2 tabs by mouth, followed by 1 tab one hour later for gout flare. May repeat in 1 week. naproxen (NAPROSYN) 500 mg tablet Take 1 tablet by mouth twice daily as needed (gout flare). Take with food. meclizine (ANTIVERT) 25 mg tab Take 1 tablet by mouth twice daily as needed. TAKE 1 TABLET BY MOUTH NEEDED. USES FOR TRAVELING ONLY. aspirin 81 mg chewable tablet Take 1 tablet by mouth once daily. FAMILY HISTORY Problem Relation Age of Onset Cancer Mother liver Heart Father Lipids Father other (depression) Sister Multiple Sclerosis Brother Anesthesia Problems No Family History Social History Tobacco Use Smoking status: Former Current packs/day: 0.00 Average packs/day: 1 pack/day for 15.0 years (15.0 ttl pk-yrs) Types: Cigarettes Start date: 06/08/1987 Quit date: 06/08/2002 Years since quittin.0 Smokeless tobacco: Never Vaping Use Vaping status: Never Used Substance Use Topics Alcohol use: Yes Comment: very seldom, not even 1 drink per month Drug use: No Review of Systems Constitutional: Negative for chills and fever. HENT: Negative for congestion and sore throat. Respiratory: Positive for cough. Negative for shortness of breath. Gastrointestinal: Positive for diarrhea. Negative for abdominal pain, blood in stool and vomiting. Objective BP 122/60 Pulse 68 Temp 36.1 ?C (96.9 ?F) Resp 16 Wt 68.4 kg (150 lb 12.7 oz) SpO2 98% BMI 23.61 kg/m? Physical Exam Vitals and nursing note reviewed. Constitutional: Gene (more content not included)...[facility]09-16-20[facility] History of Present illness Narrative* Ganesh Padilla PA - 06/23/2024 7:46 AM EDT This note was created using [employer]. Subjective Kris Cox is a 74 year old male. HPI 74-year-old male presents for cough, diarrhea, congestion. Patient states he has had cough and chest congestion for the past 4 days. He is coughing up green phlegm. He denies any chest pain or shortness of breath. He does not really have nasal congestion. No sore throat. No fevers. He states hehas had diarrhea for the past few days as well. No abdominal pain. No blood in the stool. No vomiting. Still able to eat and drink. He states he recently traveled to [place]. May have been in contact with sick contacts. Nobody else at home has similar symptoms. Patient did have COVID about 2 months ago and states that this feels similar. No other complaint. PAST MEDICAL HISTORY Diagnosis Date AAA (abdominal aortic aneurysm) ([facility]) Dr. Araujo- Multani's esophagus 2009 Needs repeat EGD 04/2023. CAD (coronary artery disease) 2002 stress test abnormal Diverticulosis Duodenal stricture Dr. Moran Duodenitis without mention of hemorrhage Erectile dysfunction Esophagitis, unspecified Gout History of colonoscopy HTN (hypertension) Hyperlipidemia Impaired fasting glucose Overweight (BMI 25.0-29.9) Vertigo PAST SURGICAL HISTORY Procedure Laterality Date CARDIAC CATH 04/30/2007 COLONOSCOPY FLX DX W/COLLJ SPEC WHEN PFRMD 10/25/2012 few diverticula - 10 year follow up COLONOSCOPY FLX DX W/COLLJ SPEC WHEN PFRMD 07/28/2020 Colonoscopy EGD 12/03/2009 dx barretts esophagus EGD 06/10/2009 h-pylori negative EGD BALLOON DILATION ESOPHAGUS <30 MM DIAM 01/30/2011 EGD TRANSORAL BIOPSY SINGLE/MULTIPLE 10/25/2012 duodenitis, gastric ulcer, gastritis, small hiatal hernia, multani's esophagitis EGD W/O [facility] SPEC VARICIES INJ 12/16/2021 ESOPHAGOGASTRODUODENOSCOPY TRANSORAL DIAGNOSTIC 07/28/2020 EGD EXPLORATORY SHOULDER SURGERY 1965 repair dislcoation. left FRACTURE SURGERY Left 1961 Fractured collar bone with surgery INCISE FINGER TENDON SHEATH Right 07/19/2023 Right index trigger finger release PAST SURGICAL HISTORY OF right and left meniscus surgeries of knee PAST SURGICAL HISTORY OF 2008 right middle finger trigger repair PAST SURGICAL HISTORY OF 08/02/2012 right ring trigger finger release PAST SURGICAL HISTORY OF 01/09/2014 Left 3rd finger trigger release TONSILLECTOMY HX ALLERGIES Patient has no known allergies. MEDICATIONS atorvastatin (LIPITOR) 20 mg tablet Take 1 tablet by mouth once daily. For cholesterol allopurinol (ZYLOPRIM) 100 mg tablet Take 2 tablets by mouth once daily. For gout. benzonatate (TESSALON PERLES) 100 mg capsule Take 1 capsule by mouth three times a day as needed for cough. amLODIPine (NORVASC) 5 mg tablet Take 1 tablet by mouth once daily. amLODIPine (NORVASC) 2.5 mg tablet Take one tablet daily along with 5 mg tablet lisinopril (ZESTRIL) 40 mg tablet Take 1 tablet by mouth once daily. pantoprazole DR (PROTONIX) 40 mg tablet Take 1 tablet by mouth two times a day. Take on empty stomach, 1/2 hr before meal. metoprolol succinate ER (TOPROL XL) 100 mg Take 1 tablet by mouth once daily. acetaminophen (TYLENOL) 325 mg tablet Take 1 tablet by mouth every 4 hours as needed for pain. colchicine 0.6 mg tablet Take 2 tabs by mouth, followed by 1 tab one hour later for gout flare. Mayrepeat in 1 week. naproxen (NAPROSYN) 500 mg tablet Take 1 tablet by mouth twice daily as needed (gout flare). Take with food. meclizine (ANTIVERT) 25 mg tab Take 1 tablet by mouth twice daily as needed. TAKE 1 TABLET BY MOUTHAS NEEDED. USES FOR TRAVELING ONLY. aspirin 81 mg chewable tablet Take 1 tablet by mouth once daily. FAMILY HISTORY Problem Relation Age of Onset Cancer Mother liver Heart Father Lipids Father other (depression) Sister Multiple Sclerosis Brother Anesthesia Problems No Family History Social History Tobacco Use Smoking status: Former Current packs/day: 0.00 Average packs/day: 1 pack/day for 15.0 years (15.0 ttl pk-yrs) Types: Cigarettes Start date: 06/08/1987 Quit date: 06/08/2002 Years since quittin.0 Smokeless tobacco: Never Vaping Use Vaping status: Never Used Substance Use Topics Alcohol use: Yes Comment: very seldom, not even 1 drink per month Drug use: No Review of Systems Constitutional: Negative for chills and fever. HENT: Negative for congestion and sore throat. Respiratory: Positive for cough. Negative for shortness of breath. Gastrointestinal: Positive for diarrhea. Negative for abdominal pain, blood in stool and vomiting. Objective BP 122/60 Pulse 68 Temp 36.1 C (96.9 F) Resp 16 Wt 68.4 kg (150 lb 12.7 oz) SpO2 98% BMI 23.61 kg/m Physical Exam Vitals and nursing note reviewed. Constitutional: General: He is not in acute distress. Appearance: Normal appearance. He is not toxic-appearing. HENT: Right Ear: Tympanic membrane and ear canal normal. Left Ear: Tympanic membrane and ear canal normal. Nose: Nose normal. Mouth/Throat: Mouth: Mucous membranes are moist. Eyes: Conjunctiva/sclera: Conjunctivae normal. Cardiovascular: Rate and Rhythm: Normal rate and regular rhythm. Pulmonary: Effort: Pulmonary effort is normal. Breath sounds: Normal breath sounds. No wheezing, rhonchi or rales. Abdominal: General: Abdomen is flat. Palpations: Abdomen is soft. Tenderness: There is no abdominal tenderness. There is no guarding or rebound. Skin: General: Skin is warm and dry. Neurological: Mental Status: He is alert. Assessment and Plan ASSESSMENT/PLAN: 1. Acute cough - ICD9: 786.2, ICD10: R05.1 (primary diagnosis) - XR CHEST 2V FRONTAL/LAT-findings unchanged. -Rx for Tessalon Perles - COVID & INFLUENZA A/B & RSV PCR, ROUTINE-out of window for Tamiflu and antiviral 2. Diarrhea, unspecified type - ICD9: 787.91, ICD10: R19.7 -Suspect viral versus traveler's diarrhea. Patient was recently in [place]. -No blood in stool or abdominal pain. No fevers. -Discussed self-limiting. Recommend brat diet, fluids, rest. If diarrhea persist, follow-up with PCP Diagnosis and treatment plan were discussed and questions were answered to the patient's satisfaction. Pt acknowledged understanding of concepts and follow up plan. Specific signs and symptoms that would indicate the need for higher level of care were discussed in detail warranting prompt ER evaluation. SRIKANTH Ayala documented in this [facility] Telephone encounter Note * Telephone Encounter - Daisha Barrera LPN - 05/12/2024 1:33 PM EDT Prescription Refill Information The patient has been identified by name and date of : Yes Caregiver verified no other encounters exist for this prescription request: Yes Caregiver confirmed with patient/requestor that no other refills are due, in the near future, with this provider at this time: Yes The last office visit in the department: 01/09/2024 Does the patient have a future office visit with this provider/department: Yes Requested Prescriptions Pending Prescriptions Disp Refills allopurinol (ZYLOPRIM) 100 mg tablet 180 tablet 1 Sig: Take 2 tablets by mouth once daily. For gout. Daisha Barrera LPN May 12, 2024 1:[address] [facility]08-05-2024 Miscellaneous Notes* Telephone Encounter - Daisha Barrera LPN - 05/12/2024 1:33 PM EDT Prescription Refill Information The patient has been identified by name and date of : Yes Caregiver verified no other encounters exist for this prescription request: Yes Caregiver confirmed with patient/requestor that no other refills are due, in the near future, with this provider at this time: Yes The last office visit in the department: 01/09/2024 Does the patient have a future office visit with this provider/department: Yes Requested Prescriptions Pending Prescriptions Disp Refills allopurinol (ZYLOPRIM) 100 mg tablet 180 tablet 1 Sig: Take 2 tablets by mouth once daily. For gout. Daisha Barrera LPN May 12, 2024 1:33 PM documented in [facility] encounter[facility] Telephone encounter Note * Telephone Encounter - Jody Alvarez LPN - 05/12/2024 1:22 PM EDT Patient Baila Gameshart message requesting the following refill Refill(s) Requested: Requested Prescriptions Pending Prescriptions Disp Refills atorvastatin (LIPITOR) 20 mg tablet 90 tablet 1 Sig: Take 1 tablet by mouth once daily. For cholesterol ALLERGIES No Known Allergies (home) [phone] (cell) Last Office Visit Date: 01/09/2024 Last [facility] Visit: Visit date not found Future appt: 07/11/2024 The patients preferred pharmacy has been captured for this encounter? yes Request is for script(s) to be escript to pharmacy. Jody Alvarez LPN [facility]08-05-2024 Miscellaneous Notes* Telephone Encounter - Jody Alvarez LPN - 05/12/2024 1:22 PM EDT Patient Baila Gameshart message requesting the following refill Refill(s) Requested: Requested Prescriptions Pending Prescriptions Disp Refills atorvastatin (LIPITOR) 20 mg tablet 90 tablet 1 Sig: Take 1 tablet by mouth once daily. For cholesterol ALLERGIES No Known Allergies (home) [phone] (cell) Last Office Visit Date: 01/09/2024 Last [facility] Visit: Visit date not found Future appt: 07/11/2024 The patients preferred pharmacy has been captured for this encounter? yes Request is for script(s) to be escript to pharmacy. Jody Alvarez LPN documented in this encounterMer[facility] Telephone encounter Note * Telephone Encounter - Capri Stanford LPN - 05/08/2024 8:30 AM EDT Pt notified of results and states he understands. Capri Stanford LPN [facility]08-01-2024 Miscellaneous Notes* Telephone Encounter - Capri Stanford LPN - 05/08/2024 8:30 AM EDT Pt notified of results and states he understands. Capri Stanford LPN * Telephone Encounter - Harsh Govea APRN.CNP - 05/08/2024 8:22 AM EDT Please notify covid positive. Is past treatment window for antiviral treatment If does not have fever does not need to quarantine. Continue the antibiotic prescribed during visit. F/u for continued or worsening symptoms. -If you experience chest pain/shortness of breath go to ER documented in this encounter[facility]24 Telephone encounter Note * Telephone Encounter - Harsh Govea APRN.CNP - 05/08/2024 8:22 AM EDT Please notify covid positive. Is past treatment window for antiviral treatment If does not have fever does not need to quarantine. Continue the antibiotic prescribed during visit. F/u for continued or worsening symptoms. -If you experience chest pain/shortness of breath go to ER [facility] Work Phone: [phone]) 624-631807-31-2024 History of Present illness Narrative* Kelvin Mendez RT(Candice) - 05/07/2024 8:40 AM EDT Radiology Service Progress Note PATIENT NAME: Kris Cox DATE OF SERVICE: May 07, 2024 TIME: 8:34 AM PATIENT IDENTITY VERIFICATION COMPLETED USING TWO (2) IDENTIFIERS: Name and Date of confirmedby patient verbally. FALL SCREENING: Has the patient had 2 falls in the last year or 1 fall with injury or currently using an Ambulatory Assistive Device (Walker, Cane, Wheelchair, Crutches, etc.)? No PATIENT GENDER DATA: Male PATIENT RELEVANT IMPLANT DATA REVIEWED: Not Applicable PATIENT PRESENTS WITH AN IMPLANTABLE OR ATTACHED REDIPPER: No RADIOLOGY DEPARTMENT: General X-ray: Exam(s) Completed: Chest X-Ray PERIPHERAL IV DATA: Not applicable SIGNED BY: RT Eligio(Candice) May 07, 2024 8:34 AM documented in this encounterMer[facility]07-31-2024 NoteHNO ID: [id number] Author: KELVIN MENDEZ RT (R) Service: Radiology Author Type: Technologist Type: Progress Notes Filed: 05/07/2024 08:39 Note Text: Radiology Service Progress Note PATIENT NAME: Kris Cox DATE OF SERVICE: May 07, 2024 TIME: 8:34 AM PATIENT IDENTITY VERIFICATION COMPLETED USING TWO (2) IDENTIFIERS: Name and Date of confirmed by patient verbally. FALL SCREENING: Has the patient had 2 falls in the last year or 1 fall with injury or currently using an Ambulatory Assistive Device (Walker, Cane, Wheelchair, Crutches, etc.)? No PATIENT GENDER DATA: Male PATIENT RELEVANT IMPLANT DATA REVIEWED: Not Applicable PATIENT PRESENTS WITH AN IMPLANTABLE OR ATTACHED REDIPPER: No RADIOLOGY DEPARTMENT: General X-ray: Exam(s) Completed: Chest X-Ray PERIPHERAL IV DATA: Not applicable SIGNED BY: STEPHANIE Del Valle) May 07, 2024 8:34 [facility]07-31-2024 NoteHNO ID: [id number] Author: ANA HERRERA APRN.PROFILE STITCHING MACHINE OPERATOR Service: ? Author Type: Nurse Practitioner Type: Progress Notes Filed: 05/07/2024 08:48 Note Text: This note was created using NoteWriter. Subjective Kris Cox is a 73 year old male. 73 year old male with PMH of GERD, duodenal stricture, HTN, HLD, CAD, AAA repair on 09/05/23 presents for illness. ' Acute onset 5 days ago +sore throat +cough +productive +chest congestion +sinus pressure +body aches Denies N/V/D Denies fever or chills Denies fatigue Denies tobacco usage. Of note, was just on a cruise. Citing he traveled to [place] and [place] The history is provided by the patient. No chinese language professor was used. Cough This is a new problem. The current episode started more than 2 days ago. The problem occurs constantly. The problem has been gradually worsening. The cough is Productive of sputum. There has been no fever. Associated symptoms include ear congestion, headaches, rhinorrhea and sore throat. Pertinent negatives include no chest pain, no chills, no sweats, no weight loss, no ear pain, no myalgias, no shortness of breath, no wheezing and no eye redness. He has tried nothing for the symptoms. The treatment provided no relief. He is not a smoker. His past medical history does not include bronchitis, pneumonia, bronchiectasis, COPD, emphysema or asthma. PAST MEDICAL HISTORY Diagnosis Date AAA (abdominal aortic aneurysm) ([facility]) Dr. Araujo- Multani's esophagus 2009 Needs repeat EGD 04/2023. CAD (coronary artery disease) 2002 stress test abnormal Diverticulosis Duodenal stricture Dr. Moran Duodenitis without mention of hemorrhage Erectile dysfunction Esophagitis, unspecified Gout History of colonoscopy HTN (hypertension) Hyperlipidemia Impaired fasting glucose Overweight (BMI 25.0-29.9) Vertigo PAST SURGICAL HISTORY Procedure Laterality Date CARDIAC CATH 04/30/2007 COLONOSCOPY FLX DX W/COLLJ SPEC WHEN PFRMD 10/25/2012 few diverticula - 10 year follow up COLONOSCOPY FLX DX W/COLLJ SPEC WHEN PFRMD 07/28/2020 Colonoscopy EGD 12/03/2009 dx barretts esophagus EGD 06/10/2009 h-pylori negative EGD BALLOON DILATION ESOPHAGUS <30 MM DIAM 01/30/2011 EGD TRANSORAL BIOPSY SINGLE/MULTIPLE 10/25/2012 duodenitis, gastric ulcer, gastritis, small hiatal hernia, multani's esophagitis EGD W/O [facility] SPEC VARICIES INJ 12/16/2021 ESOPHAGOGASTRODUODENOSCOPY TRANSORAL DIAGNOSTIC 07/28/2020 EGD EXPLORATORY SHOULDER SURGERY 1965 repair dislcoation. left FRACTURE SURGERY Left 1961 Fractured collar bone with surgery INCISE FINGER TENDON SHEATH Right 07/19/2023 Right index trigger finger release PAST SURGICAL HISTORY OF right and left meniscus surgeries of knee PAST SURGICAL HISTORY OF 2008 right middle finger trigger repair PAST SURGICAL HISTORY OF 08/02/2012 right ring trigger finger release PAST SURGICAL HISTORY OF 01/09/2014 Left 3rd finger trigger release TONSILLECTOMY HX ALLERGIES Patient has no known allergies. MEDICATIONS amLODIPine (NORVASC) 5 mg tablet Take 1 tablet by mouth once daily. amLODIPine (NORVASC) 2.5 mg tablet Take one tablet daily along with 5 mg tablet lisinopril (ZESTRIL) 40 mg tablet Take 1 tablet by mouth once daily. pantoprazole DR (PROTONIX) 40 mg tablet Take 1 tablet by mouth two times a day. Take on empty stomach, 1/2 hr before meal. atorvastatin (LIPITOR) 20 mg tablet Take 1 tablet by mouth once daily. For cholesterol metoprolol succinate ER (TOPROL XL) 100 mg Take 1 tablet by mouth once daily. allopurinol (ZYLOPRIM) 100 mg tablet Take 2 tablets by mouth once daily. For gout. acetaminophen (TYLENOL) 325 mg tablet Take 1 tablet by mouth every 4 hours as needed for pain. colchicine 0.6 mg tablet Take 2 tabs by mouth, followed by 1 tab one hour later for gout flare. May repeat in 1 week. naproxen (NAPROSYN) 500 mg tablet Take 1 tablet by mouth twice daily as needed (gout flare). Take with food. meclizine (ANTIVERT) 25 mg tab Take 1 tablet by mouth twice daily as needed. TAKE 1 TABLET BY MOUTH NEEDED. USES FOR TRAVELING ONLY. doxycycline (VIBRA-TABS) 100 mg tablet Take 1 tablet by mouth two times a day for 7 days. benzonatate (TESSALON PERLES) 100 mg capsule Take 1 capsule by mouth three times a day as needed for cough. aspirin 81 mg chewable tablet Take 1 tablet by mouth once daily. FAMILY HISTORY Problem Relation Age of Onset Cancer Mother liver Heart Father Lipids Father other (depression) Sister Multiple Sclerosis Brother Anesthesia Problems No Family History Social History Tobacco Use Smoking status: Former Packs/day: 1.00 Years: 15.00 Additional pack years: 0.00 Total pack years: 15.00 Types: Cigarettes Quit date: 06/08/2002 Years since quittin.9 Smokeless tobacco: Never Vaping Use Vaping Use: Never used Substance Use Topics Alcohol use: Yes Comment: very seldom, (more content not included)...[facility] 05-07-2024 History of Present illness Narrative* Ana Herrera APRN.[facility] - 05/07/2024 8:25 AM EDT This note was created using Zipzoomriter. Subjective Kris Cox is a 73 year old male. 73 year old male with PMH of GERD, duodenal stricture, HTN, HLD, CAD, AAA repair on 09/05/23 presents for illness. ' Acute onset 5 days ago +sore throat +cough +productive +chest congestion +sinus pressure +body aches Denies N/V/D Denies fever or chills Denies fatigue Denies tobacco usage. Of note, was just on a cruise. Citing he traveled to [place] and [place] The history is provided by the patient. No chinese language professor was used. Cough This is a new problem. The current episode started more than 2 days ago. The problem occurs constantly. The problem has been gradually worsening. The cough is Productive of sputum. There has been no fever. Associated symptoms include ear congestion, headaches, rhinorrhea and sore throat. Pertinent negatives include no chest pain, no chills, no sweats, no weight loss, no ear pain, no myalgias, no shortness of breath, no wheezing and no eye redness. He has tried nothing for the symptoms. The treatment provided no relief. He is not a smoker. His past medical history does not include bronchitis, pneumonia, bronchiectasis, COPD, emphysema or asthma. PAST MEDICAL HISTORY Diagnosis Date AAA (abdominal aortic aneurysm) ([facility]) Dr. Araujo- Multani's esophagus 2009 Needs repeat EGD 04/2023. CAD (coronary artery disease) 2003 stress test abnormal Diverticulosis Duodenal stricture DrAlexander Friend Duodenitis without mention of hemorrhage Erectile dysfunction Esophagitis, unspecified Gout History of colonoscopy HTN (hypertension) Hyperlipidemia Impaired fasting glucose Overweight (BMI 25.0-29.9) Vertigo PAST SURGICAL HISTORY Procedure Laterality Date CARDIAC CATH 04/30/2007 COLONOSCOPY FLX DX W/COLLJ SPEC WHEN PFRMD 10/25/2012 few diverticula - 10 year follow up COLONOSCOPY FLX DX W/COLLJ SPEC WHEN PFRMD 07/28/2020 Colonoscopy EGD 12/03/2009 dx barretts esophagus EGD 06/10/2009 h-pylori negative EGD BALLOON DILATION ESOPHAGUS <30 MM DIAM 01/30/2011 EGD TRANSORAL BIOPSY SINGLE/MULTIPLE 10/25/2012 duodenitis, gastric ulcer, gastritis, small hiatal hernia, multani's esophagitis EGD W/O [facility] SPEC VARICIES INJ 12/16/2021 ESOPHAGOGASTRODUODENOSCOPY TRANSORAL DIAGNOSTIC 07/28/2020 EGD EXPLORATORY SHOULDER SURGERY 1965 repair dislcoation. left FRACTURE SURGERY Left 1961 Fractured collar bone with surgery INCISE FINGER TENDON SHEATH Right 07/19/2023 Right index trigger finger release PAST SURGICAL HISTORY OF right and left meniscus surgeries of knee PAST SURGICAL HISTORY OF 2008 right middle finger trigger repair PAST SURGICAL HISTORY OF 08/02/2012 right ring trigger finger release PAST SURGICAL HISTORY OF 01/09/2014 Left 3rd finger trigger release TONSILLECTOMY HX ALLERGIES Patient has no known allergies. MEDICATIONS amLODIPine (NORVASC) 5 mg tablet Take 1 tablet by mouth once daily. amLODIPine (NORVASC) 2.5 mg tablet Take one tablet daily along with 5 mg tablet lisinopril (ZESTRIL) 40 mg tablet Take 1 tablet by mouth once daily. pantoprazole DR (PROTONIX) 40 mg tablet Take 1 tablet by mouth two times a day. Take on empty stomach, 1/2 hr before meal. atorvastatin (LIPITOR) 20 mg tablet Take 1 tablet by mouth once daily. For cholesterol metoprolol succinate ER (TOPROL XL) 100 mg Take 1 tablet by mouth once daily. allopurinol (ZYLOPRIM) 100 mg tablet Take 2 tablets by mouth once daily. For gout. acetaminophen (TYLENOL) 325 mg tablet Take 1 tablet by mouth every 4 hours as needed for pain. colchicine 0.6 mg tablet Take 2 tabs by mouth, followed by 1 tab one hour later for gout flare. Mayrepeat in 1 week. naproxen (NAPROSYN) 500 mg tablet Take 1 tablet by mouth twice daily as needed (gout flare). Take with food. meclizine (ANTIVERT) 25 mg tab Take 1 tablet by mouth twice daily as needed. TAKE 1 TABLET BY MOUTHAS NEEDED. USES FOR TRAVELING ONLY. doxycycline (VIBRA-TABS) 100 mg tablet Take 1 tablet by mouth two times a day for 7 days. benzonatate (TESSALON PERLES) 100 mg capsule Take 1 capsule by mouth three times a day as needed for cough. aspirin 81 mg chewable tablet Take 1 tablet by mouth once daily. FAMILY HISTORY Problem Relation Age of Onset Cancer Mother liver Heart Father Lipids Father other (depression) Sister Multiple Sclerosis Brother Anesthesia Problems No Family History Social History Tobacco Use Smoking status: Former Packs/day: 1.00 Years: 15.00 Additional pack years: 0.00 Total pack years: 15.00 Types: Cigarettes Quit date: 06/08/2002 Years since quittin.9 Smokeless tobacco: Never Vaping Use Vaping Use: Never used Substance Use Topics Alcohol use: Yes Comment: very seldom, not even 1 drink per month Drug use: No Review of Systems Constitutional: Negative for chills, fatigue, fever and weight loss. HENT: Positive for rhinorrhea, sinus pressure, sinus pain and sore throat. Negative for congestion and ear pain. Eyes: Negative for pain, discharge, redness and itching. Respiratory: Positive for cough. Negative for apnea, chest tightness, shortness of breath and wheezing. Cardiovascular: Negative for chest pain. Gastrointestinal: Negative for abdominal pain, diarrhea, nausea and vomiting. Musculoskeletal: Negative for myalgias. Skin: Negative for color change, pallor, rash and wound. Allergic/Immunologic: Negative for environmental allergies, food allergies and immunocompromised state. Neurological: Positive for headaches. Negative for dizziness, facial asymmetry, light-headedness and numbness. Hematological: Negative for adenopathy. Does not bruise/bleed easily. Psychiatric/Behavioral: Negative for agitation and behavioral problems. Objective BP 132/78 Pulse 77 Temp 37 C (98.6 F) (Tympanic) Resp 16 Wt 71.3 kg (157 lb 3 oz) SpO2 96% BMI 24.61 kg/m Physical Exam Vitals and nursing note reviewed. Constitutional: General: He is not in acute distress. Appearance: Normal appearance. He is not ill-appearing, toxic-appearing or diaphoretic. HENT: Head: Normocephalic and atraumatic. Comments: +frontal maxillary pressure Right Ear: External ear normal. Left Ear: External ear normal. Ears: Comments: B/L TM's erythematous Nose: Nose normal. No congestion or rhinorrhea. Mouth/Throat: Mouth: Mucous membranes are moist. Pharynx: Oropharynx is clear. Posterior oropharyngeal erythema present. No oropharyngeal exudate. Eyes: General: Right eye: No discharge. Left eye: No discharge. Extraocular Movements: Extraocular movements intact. Conjunctiva/sclera: Conjunctivae normal. Pupils: Pupils are equal, round, and reactive to light. Cardiovascular: Rate and Rhythm: Normal rate and regular rhythm. Pulses: Normal pulses. Heart sounds: Normal heart sounds. No murmur heard. No friction rub. No gallop. Pulmonary: Effort: Pulmonary effort is normal. No respiratory distress. Breath sounds: Normal breath sounds. No stridor. No wheezing, rhonchi or rales. Comments: Moist cough noted Chest: Chest wall: No tenderness. Abdominal: General: Abdomen is flat. There is no distension. Palpations: Abdomen is soft. There is no mass. Tenderness: There is no abdominal tenderness. There is no guarding or rebound. Hernia: No hernia is present. Musculoskeletal: General: No swelling, tenderness, deformity or signs of injury. Normal range of motion. Cervical back: Normal range of motion and neck supple. No rigidity or tenderness. Right lower leg: No edema. Left lower leg: No edema. Lymphadenopathy: Cervical: Cervical adenopathy present. Skin: General: Skin is warm and dry. Capillary Refill: Capillary refill takes less than 2 seconds. Coloration: Skin is not jaundiced or pale. Findings: No bruising, lesion or rash. Neurological: General: No focal deficit present. Mental Status: He is alert and oriented to person, place, and time. Cranial Nerves: No cranial nerve deficit. Sensory: No sensory deficit. Motor: No weakness. Coordination: Coordination normal. Gait: Gait normal. Deep Tendon Reflexes: Reflexes normal. Psychiatric: Mood and Affect: Mood normal. Behavior: Behavior normal. Thought Content: Thought content normal. Assessment and Plan ASSESSMENT/PLAN: 1. Acute cough - ICD9: 786.2, ICD10: R05.1 (primary diagnosis) X 5 days - XR CHEST 2V FRONTAL/LAT-No acute radiographic abnormality. Emphysema - COVID & INFLUENZA A/B & RSV NAAT, ROUTINE-pending RX Doxy RX Tessalon Perles 2. URI, acute - ICD9: 465.9, ICD10: J06.9 X 5 days - Symptomatic treatment with prn analgesia - Supportive care with fluids and rest - The patient may also use OTC cough and cold meds as needed, warm salt water gargles, throat lozenges and/or OTC throat spray as needed, and nasal saline gtts and suction prn. - Follow up in 3-5 days if symptoms persist or sooner if worsening of symptoms - - COVID & INFLUENZA A/B & RSV NAAT, ROUTINE Ana Herrera APRN.PROFILE STITCHING MACHINE OPERATOR documented in this encounterMer[facility] Telephone encounter Note * Telephone Encounter - Jody Alvarez LPN - 03/28/2024 8:42 AM EDT Patient MyChart message requesting the following refill Refill(s) Requested: Requested Prescriptions Pending Prescriptions Disp Refills amLODIPine (NORVASC) 5 mg tablet 90 tablet 1 Sig: Take 1 tablet by mouth once daily. ALLERGIES No Known Allergies (home) [phone] (cell) Last Office Visit Date: 01/09/2024 Last [facility] Visit: Visit date not found Future Appointment: 07/11/2024 The patients preferred pharmacy has been captured for this encounter? yes Request is for script(s) to be escript to pharmacy. Jody Alvarez LPN [facility]06-21-2024 Miscellaneous Notes* Telephone Encounter - Jody Alvarez LPN - 03/28/2024 8:42 AM EDT Patient MyChart message requesting the following refill Refill(s) Requested: Requested Prescriptions Pending Prescriptions Disp Refills amLODIPine (NORVASC) 5 mg tablet 90 tablet 1 Sig: Take 1 tablet by mouth once daily. ALLERGIES No Known Allergies (home) [phone] (cell) Last Office Visit Date: 01/09/2024 Last [facility] Visit: Visit date not found Future Appointment: 07/11/2024 The patients preferred pharmacy has been captured for this encounter? yes Request is for script(s) to be escript to pharmacy. Jody Alvarez LPN documented in this encounterMer[facility]05-31-2024 Telephone encounter Note * Telephone Encounter - Jody Alvarez LPN - 03/07/2024 10:03 AM EDT Patient MyChart message requesting the following refill Refill(s) Requested: Requested Prescriptions Pending Prescriptions Disp Refills amLODIPine (NORVASC) 2.5 mg tablet 90 tablet 1 Sig: Take one tablet daily along with 5 mg tablet ALLERGIES No Known Allergies (home) [phone] (cell) Last Office Visit Date: 01/09/2024 Last [facility] Visit: Visit date not found Future Appointment: 07/11/2024 The patients preferred pharmacy has been captured for this encounter? yes Request is for script(s) to be escript to pharmacy. Jody Alvarez LPN [facility]05-31-2024 Miscellaneous Notes* Telephone Encounter - Jody Alvarez LPN - 03/07/2024 10:03 AM EDT Patient MyChart message requesting the following refill Refill(s) Requested: Requested Prescriptions Pending Prescriptions Disp Refills amLODIPine (NORVASC) 2.5 mg tablet 90 tablet 1 Sig: Take one tablet daily along with 5 mg tablet ALLERGIES No Known Allergies (home) [phone] (cell) Last Office Visit Date: 01/09/2024 Last [facility] Visit: Visit date not found Future Appointment: 07/11/2024 The patients preferred pharmacy has been captured for this encounter? yes Request is for script(s) to be escript to pharmacy. Jody Alvarez LPN documented in this encounterMer[facility]05[facility]24 Telephone encounter Note * Telephone Encounter - Shira Noel LPN - 02/29/2024 9:21 AM EDT Patient has been identified by name and date of : Yes, Patient mycharts for refill(s): Requested Prescriptions Pending Prescriptions Disp Refills lisinopril (ZESTRIL) 40 mg tablet 90 tablet 1 Sig: Take 1 tablet by mouth once daily. Date of last office visit in primary care: 01/09/2024 Date of next office visit in primary care: 07/11/2024 Please advise. Thank you. Shira Noel LPN. [facility]05-24-2024 Miscellaneous Notes* Telephone Encounter - Shira Noel LPN - 02/29/2024 9:21 AM EDT Patient has been identified by name and date of : Yes, Patient mycharts for refill(s): Requested Prescriptions Pending Prescriptions Disp Refills lisinopril (ZESTRIL) 40 mg tablet 90 tablet 1 Sig: Take 1 tablet by mouth once daily. Date of last office visit in primary care: 01/09/2024 Date of next office visit in primary care: 07/11/2024 Please advise. Thank you. Shira Noel LPN. documented in this encounterMer[facility]05-[facility]2024 Telephone encounter Note * Telephone Encounter - Lacey Webb MA - 02/23/2024 11:41 AM EDT Patient has been identified by name and date of : Yes, Provider Samuel Foy MD [id number] Time 11:41 AM Patient phones for refill(s): Requested Prescriptions Pending Prescriptions Disp Refills pantoprazole DR (PROTONIX) 40 mg tablet 180 tablet 1 Sig: Take 1 tablet by mouth two times a day. Take on empty stomach, 1/2 hr before meal. Date of last office visit in primary care: 01/09/2024 Date of next office visit in primary care: 07/11/2024 Please advise. Thank you. Lacey Webb MA. [facility]05-18-2024 Miscellaneous Notes* Telephone Encounter - Lacey Webb MA - 02/23/2024 11:41 AM EDT Patient has been identified by name and date of : Yes, Provider Samuel Foy MD [place] 2023 Time 11:41 AM Patient phones for refill(s): Requested Prescriptions Pending Prescriptions Disp Refills pantoprazole DR (PROTONIX) 40 mg tablet 180 tablet 1 Sig: Take 1 tablet by mouth two times a day. Take on empty stomach, 1/2 hr before meal. Date of last office visit in primary care: 01/09/2024 Date of next office visit in primary care: 07/11/2024 Please advise. Thank you. Lacey Webb MA. documented in this encounterMercy [facility]04-15-2024 Miscellaneous Notes* Telephone Encounter - Michael Valdez LPN - 01/21/2024 5:50 PM EDT Patient has been identified by name and date of : Yes Patient phones for refill(s): Requested Prescriptions Pending Prescriptions Disp Refills metoprolol succinate ER (TOPROL XL) 100 mg 90 tablet 1 Sig: Take 1 tablet by mouth once daily. Date of last office visit in primary care: 01/09/2024 Date of next office visit in primary care: 07/11/2024 Please advise. Thank you. Michael Valdez LPN. documented in this encounter[facility] History of Present illness Narrative* Melanie Livingston APRN.PROFILE STITCHING MACHINE OPERATOR - 01/09/2024 7:34 AM EDT 01/09/2024 Patient presents with: Follow Up SUBJECTIVE: This is a 73 year old that is here today for Above Complaints. HTN: Patient is compliant with meds Yes Monitors bp at home: No. Denies side effects: Yes. Chest pain: No Dyspnea: No. Edema: No. Palpitations: No. Syncope: No. Headache: No. Dizziness: No. HYPERLIPIDEMIA: Patient is taking medications: Yes. Patient is watching diet: Yes. Patient denies myalgias: Yes. Patient denies gi upset: Yes GOUT: taking Allopurinol as prescribed. No gout flares. CAD: does not follow-up with cardiology. Had recent stress test before his surgery in August which was normal Hx of AAA: underwent infrarenal AAA repair on 09/05/[address] Graves. Doing well since surgery. Last follow-up with vascular was 10/15/2023 with recommendations for yearly follow-up with CTA ABD/PElLprior and continue ASA and statin therapy. PAST MEDICAL HISTORY Diagnosis Date AAA (abdominal aortic aneurysm) (HCC) Dr. Araujo- Multani's esophagus 2009 Needs repeat EGD 04/2023. CAD (coronary artery disease) 2002 stress test abnormal Diverticulosis Duodenal stricture Dr. Moran Duodenitis without mention of hemorrhage Erectile dysfunction Esophagitis, unspecified Gout History of colonoscopy HTN (hypertension) Hyperlipidemia Impaired fasting glucose Overweight (BMI 25.0-29.9) Vertigo ALLERGIES Patient has no known allergies. MEDICATIONS Current Outpatient Medications Medication Sig amLODIPine (NORVASC) 5 mg tablet Take 1 tablet by mouth once daily. allopurinol (ZYLOPRIM) 100 mg tablet Take 2 tablets by mouth once daily. For gout. atorvastatin (LIPITOR) 20 mg tablet Take 1 tablet by mouth once daily. For cholesterol amLODIPine (NORVASC) 2.5 mg tablet Take one tablet daily along with 5 mg tablet acetaminophen (TYLENOL) 325 mg tablet Take 1 tablet by mouth every 4 hours as needed for pain. aspirin 81 mg chewable tablet Take 1 tablet by mouth once daily. lisinopril (ZESTRIL) 40 mg tablet Take 1 tablet by mouth once daily. pantoprazole DR (PROTONIX) 40 mg tablet Take 1 tablet by mouth two times a day. Take on empty stomach, 1/2 hr before meal. metoprolol succinate ER (TOPROL XL) 100 mg Take 1 tablet by mouth once daily. colchicine 0.6 mg tablet Take 2 tabs by mouth, followed by 1 tab one hour later for gout flare. Mayrepeat in 1 week. naproxen (NAPROSYN) 500 mg tablet Take 1 tablet by mouth twice daily as needed (gout flare). Take with food. meclizine (ANTIVERT) 25 mg tab Take 1 tablet by mouth twice daily as needed. TAKE 1 TABLET BY MOUTHAS NEEDED. USES FOR TRAVELING ONLY. No current facility-administered medications for this visit. Medications and allergies reviewed by this provider. SOCIAL HISTORY Social History Tobacco Use Smoking status: Former Packs/day: 1.00 Years: 15.00 Additional pack years: 0.00 Total pack years: 15.00 Types: Cigarettes Quit date: 06/08/2002 Years since quittin.6 Smokeless tobacco: Never Vaping Use Vaping Use: Never used Substance Use Topics Alcohol use: Yes Comment: very seldom, not even 1 drink per month Drug use: No REVIEW OF SYSTEMS All other reviewed and negative other than HPI. OBJECTIVE: BP 106/66 Pulse (!) 58 Resp 18 Wt 74.6 kg (164 lb 6.4 oz) SpO2 96% BMI 25.74 kg/m . Vitalsigns reviewed by this provider. APPEARANCE Well appearing, alert, in no acute distress, well-hydrated, well nourished. EYES conjunctiva and sclera normal. HEART RRR with normal S1 and S2, no murmurs, no gallops, no JVD appreciated LUNG clear to auscultation. No wheezes, rhonchi or rales EXTREMITIES Extremities normal, No deformities, No skin discoloration, and No edema SKIN Skin color, texture, turgor normal, no suspicious rashes or lesions to exposed skin Latest Ref Rng 09/10/2023 WBC 3.70 - 11.00 k/uL 7.99 RBC 4.20 - 6.00 m/uL 3.44 (L) Hemoglobin 13.0 - 17.0 g/dL 10.9 (L) Hematocrit 39.0 - 51.0 % 32.9 (L) MCV 80.0 - 100.0 fL 95.6 MCH 26.0 - 34.0 pg 31.7 MCHC 30.5 - 36.0 g/dL 33.1 RDW-CV 11.5 - 15.0 % 13.0 Platelet Count 150 - 400 k/uL 223 MPV 9.0 - 12.7 fL 9.2 Absolute nRBC <0.01 k/uL <0.01 Glucose 74 - 99 mg/dL 99 BUN 9 - 24 mg/dL 14 Creatinine 0.73 - 1.22 mg/dL 0.81 Sodium 136 - 144 mmol/L 140 Potassium 3.7 - 5.1 mmol/L 4.3 Chloride 97 - 105 mmol/L 102 CO2 22 - 30 mmol/L 25 Anion Gap 9 - 18 mmol/L 13 Calcium 8.5 - 10.2 mg/dL 8.6 eGFR >=60 mL/min/1.73m 93 Latest Ref Rng 07/10/2023 Cholesterol, Total <200 mg/dL 138 Triglyceride <150 mg/dL 97 HDL Cholesterol >39 mg/dL 40 Non HDL Cholesterol <130 mg/dL 98 Fasting Time hrs 14 VLDL Cholesterol <30 mg/dL 19 TC:HDL Ratio <5.10 3.45 LDL Cholesterol <100 mg/dL 79 LDL:HDL Ratio <2.54 1.98 Legend: (L) Low RSV Vaccine(1 - 1-dose 60+ series) Never done DTaP,Tdap,Td Vaccine(2 - Td or Tdap) due on 03/21/2022 Depression Assessment due on 10/08/2023 LDL Cholesterol due on 07/10/2024 Annual PCP Team Chronic Disease Visit due on 07/10/2024 BP Controlled (<130/80) due on 10/15/2024 Diabetes Screening due on 09/10/2026 Lipid Screening due on 07/10/2028 Colorectal Cancer Screening due on 07/28/2030 Abdominal Aortic Aneurysm Screening Completed Influenza Vaccine Completed Hepatitis C Screening Completed Shingrix Vaccine Completed Covid-19 Vaccine Completed Pneumococcal Vaccine: 65+ Completed Advance Directive Discussion Discontinued ASSESSMENT/PLAN: 1. Essential hypertension - ICD9: 401.9, ICD10: I10 (primary diagnosis) - Controlled - Continue current medications - Recommend home blood pressure monitoring, to bring results to next visit - Encouraged sodium restriction, DASH or Mediterranean diet - Recommend regular aerobic exercise - Follow up in 6 months for hypertension visit - COMP METABOLIC PANEL 2. Anemia, unspecified type - ICD9: 285.9, ICD10: D64.9 - recheck today,was likely decreased due to surgery - CBC + DIFF 3. Gout, unspecified cause, unspecified chronicity, unspecified site - ICD9: 274.9, ICD10: M10.9 - stable on current retgine - URIC ACID BLOOD 4. Screening for depression - ICD9: V79.0, ICD10: Z13.31 - DEPRESSION SCREENING/ASSESSMENT 5. 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 Infrarenal abdominal aortic aneurysm (AAA) without rupture (HCC) - ICD9: 441.4, ICD10: I71.43 - continue current medications and follow-up with vascular as recommended 7. Mixed hyperlipidemia - ICD9: 272.2, ICD10: E78.2 - Controlled - Continue current medications - Counseled on healthy diet and regular exercise - Follow up in 6 months, sooner should any other issues arise. 8. 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, unspecified vessel or lesion type - ICD9: 414.01, ICD10: I25.10 - stable at this time - continue current medications Melanie Livingston APRN.CNP Prescription instructions reviewed with patient as applicable. Patient advised if symptoms do not improve or if symptoms worsen sooner, to contact their primary care physician. Potential red flag symptoms discussed with the patient. Reviewed appropriate action plan to take if red flag symptoms occur. Patient agreeable to treatment plan. Medical Decision Making: Problems: Moderate: 2+ stable chronic illnesses Data: Unique test(s) ordered: 2 Risk: Low: Low risk from testing/treatment Medical Decision Making Level: 3 - Low documented in this encounterMer[facility]04[facility]01-2024 Miscellaneous Notes* Telephone Encounter - Michael Valdez LPN - 01/07/2024 10:47 AM EDT Patient has been identified by name and date of : Yes Patient phones for refill(s): Requested Prescriptions Pending Prescriptions Disp Refills amLODIPine (NORVASC) 5 mg tablet 90 tablet 1 Sig: Take 1 tablet by mouth once daily. Date of last office visit in primary care: 07/10/2023 Date of next office visit in primary care: 01/09/2024 Please advise. Thank you. Michael Valdez LPN. * Telephone Encounter - Che Clark - 01/07/2024 9:37 AM EDT [facility] pharmacy called to request this refill as well. documented in this encounterMer[facility]02-05-2024 Miscellaneous Notes* Telephone Encounter - Krish Sher LPN - 11/12/2023 2:39 PM EST Spoke with pt and information listed below given. Pt verbalizes understanding. Krish Sher LPN * Telephone Encounter - Samuel Foy MD - 11/12/2023 10:45 AM EST Rx sent as requested. * Telephone Encounter - Avelina Helm LPN - 11/12/2023 9:41 AM EST Patient has been identified by name and date of : Yes Patient phones for refill(s): Requested Prescriptions No prescriptions requested or ordered in this encounter Date of last office visit in primary care: 07/10/2023 Date of next office visit in primary care: 11/10/2023 Please advise. Thank you. Avelina Helm LPN. documented in this encounterMer[facility]02-05-2024 Miscellaneous Notes* Telephone Encounter - Marlene Perry - 11/12/2023 9:21 AM EST Pharmacy verified in Epic Patient has been identified by name and date of : Yes Patient aware RX will be sent to pharmacy. No need to notify patient. Pharmacy phones for refill(s): Requested Prescriptions Pending Prescriptions Disp Refills allopurinol (ZYLOPRIM) 100 mg tablet 180 tablet 1 Sig: Take 2 tablets by mouth once daily. For gout. atorvastatin (LIPITOR) 20 mg tablet 90 tablet 1 Sig: Take 1 tablet by mouth once daily. For cholesterol Date of last office visit : 07/10/2023 Date of next office visit : 01/09/2024 Last 2 Encounter Wt Readings: Date: Wt: 09/03/2023 81.3 kg (179 lb 3.2 oz) 08/24/2023 80 kg (176 lb 5.9 oz) Not applicable Please advise. Marlene Villanueva documented in this encounterMer[facility]12-05-2023 Miscellaneous Notes* Telephone Encounter - Ml Alba Ma - 09/11/2023 10:12 AM EST Last OV: 07/10/23 with REHAN Next OV: 01/09/24 with REHAN Last Rx: 06/30/24 #90 w/1, lasting until 12/27/23. Pt has no further refills, do you want to send in refills or wait til closer to time? Ml Alba Ma documented in this encounterMer[facility]12-04-2023 NoteHNO ID: [id number] Author: Madan Noble MD Service: Vascular Surgery Author Type: Resident Type: Progress Notes Filed: 09/10/2023 9:30 AM Note Text: [facility] PROGRESS NOTE Template ID: [id number] Service Date: 09/10/2023 Admit Date: 09/05/2023Service Time: 9:29 AM LOS: 5 day(s) Primary Service: Vascular Surgery Vascular Physician: Naif Graves MD Interval Events/Issues: No acute events Pain well controlled Having bowel movements Able to ambulate well Would like an abdominal binder for comfort Subjective Current Facility-Administered Medications Medication Dose Route Frequency pantoprazole 40 mg injection (PROTONIX) 40 mg INTRAVENOUS BID AC (0600/1600) metoprolol 5 mg injection (LOPRESSOR) 5 mg INTRAVENOUS q 6 HR NaCl 0.9% iv flush bag 20 mL INTRAVENOUS PRN ondansetron (PF) 4 mg injection (ZOFRAN) 4 mg INTRAVENOUS q 6 H PRN albuterol 2.5 mg /3 mL (0.083 %) 2.5 mg (PROVENTIL) 2.5 mg INHALATION q 6 H PRN fentaNYL 50 mcg/mL 25 mcg injection (SUBLIMAZE) 25 mcg INTRAVENOUS q 2 H PRN labetalol 10 mg injection syringe (NORMODYNE) 10 mg INTRAVENOUS q 2 H PRN hydrALAZINE 10 mg injection (APRESOLINE) 10 mg INTRAVENOUS q 1 H PRN diclofenac 1.3 % 1 Patch (FLECTOR) 1 Patch TRANSDERMAL BID And diclofenac - REMOVE PATCH OTHER BID And diclofenac - VERIFY PATCH OTHER q 8 H aspirin 81 mg chewable tab(s) 81 mg ORAL DAILY heparin 5,000 Units injection 5,000 Units SUBCUTANEOUS q 12 H bacitracin 500 unit/gram 1 Packet 1 Packet TOPICAL PRN acetaminophen 325 mg tab(s) (TYLENOL) 325 mg ORAL q 4 H PRN amLODIPine (NORVASC) tab(s) 7.5 mg 7.5 mg ORAL DAILY Medication and Non-Pharmacologic VTE Prophylaxis/Anticoagulants Anticoagulant AND Antiplatelet Medications (From admission, onward) Start Dose Route Frequency Last Action Ordered Stop 09/07/23 1230 aspirin 81 mg chewable tab(s) 81 mg ORAL DAILY Given, 09/09 0830 09/07/23 1225 -- 09/07/23 1230 heparin 5,000 Units injection 5,000 Units SUBCUTANEOUS EVERY 12 HOURS Given, 09/09 213109/07/23 1225 -- 09/05/231914 vte pharmacologic prophylaxis contraindicated ([place]) 09/05/231914 pneumatic compression stockings ([place]) 09/05/231914 activity - mobilize patient [place]) VTE Prophylaxis: VTE prophylaxis appropriate ALLERGIES No Known Allergies Objective PHYSICAL EXAM: Patient Vitals for the past 24 hrs: BP Temp Temp src Pulse Resp SpO2 Weight 09/09/23 0712 148/68 -- Oral 84 20 97 % -- 09/09/23 0335 154/78 36.6 ?C (97.9 ?F) Oral 92 18 98 % 78.3 kg (172 lb 11.2 oz) 09/08/235 145/65 36.4 ?C (97.5 ?F) Oral 84 18 97 % -- 09/08/23 1932 136/61 36.6 ?C (97.9 ?F) Oral 84 18 92 % -- 09/08/23 191 122/64 -- -- 92 -- -- -- 09/08/23 1542 129/59 36.6 ?C (97.9 ?F) Oral 92 18 95 % -- 09/08/23 1320 121/81 -- -- 102 -- 96 % -- 09/08/23 1111 143/71 36.7 ?C (98.1 ?F) Oral 86 24 93 % -- Intake/Output Summary (Last 24 hours) at 09/10/2023 0923 Last data filed at 09/10/2023 0834 Gross per 24 hour Intake 1436 ml Output 2850 ml Net -1414 ml CONSTITUTIONAL: No acute distress NEUROLOGIC/PSYCHIATRIC: Oriented ABDOMEN: Abdominal incision, CDI INTEGUMENTARY: Wound - No SURGICAL SITES: Abdomen - Clean, dry and intact MUSCULOSKELETAL: No deformities Pulses/Signals: PT palpable bilaterally DATA: Laboratory: Recent Labs 09/10/2344609/09/23 0532 09/08/23 0633 WBC 7.99 10.38 13.29* HB 10.9* 10.7* 10.7* HCT 32.9* 31.8* 32.4* PLT 223 157 142* Recent Labs 09/10/2344609/09/23 0532 09/08/23 0633 NA 140 140 140 K 4.3 3.9 4.5 BUN 14 20 18 CREAT 0.81 0.77 0.91 GLUC 99 86 96 MG 2.0 2.1 2.2 Impression: Kris Cox is a 73 year old male with past medical/surgical history of GERD, duodenal stricture, HTN, HLD, and asymptomatic 5.5cm infrarenal AAA who is now s/p open AAA repair on 09/05. Patient has recovered well and is clinically appropriate for discharge at this time. Plan: - Continue Asa and SQ heparin. Home with ASA - PRN tylenol for pain (well controlled) - No indication for further diuresis - PT/OT eval - Restart home amlodipine - OK to restart home medications on discharge - Regular diet - Pain catheter removed, APMS signed off - PRN Albuterol, Aggressive bronchopulmonary hygiene - OOB, Mobilize as tolerated - No glycemic concerns at this time Dispo:Discharge home today pending PT is OK with home. Follow up in 1 month SIGNATURE: Madan Noble MD PATIENT NAME: Kris Cox DATE: 09/10/2023 TIME: 9:23 AM (M-F 6a-6p) Vascular Surgery/General Surgery Red Day Floor Pager: [phone] (Nights 6p-6a, Weekends, Holidays) Vascular Surgery/General Surgery Microarray Specialist Pager: [phone] [id number] NoteHNO ID: [id number] Author: Rashad Hugo MD Service: Vascular Surgery Author Type: Resident Type: Progress Notes Filed: 09/09/2023 8:34 AM Note Text: [facility] PROGRESS NOTE Template ID: [id number] Service Date: 09/09/2023 Admit Date: 09/05/2023Service Time: 8:32 AM LOS: 4 day(s) Primary Service: Vascular Surgery Vascular Physician: Naif Graves MD Interval Events/Issues: No acute events NGT out yesterday, passing gas, had BM, no n/v Pain controlled Heparin held for epidural removal Subjective Current Facility-Administered Medications Medication Dose Route Frequency magnesium sulfate 1 g in D5W 100 mL 1 g INTRAVENOUS PRN magnesium sulfate iv piggyback in sterile water 2 g 50 mL 2 g INTRAVENOUS PRN pantoprazole 40 mg injection (PROTONIX) 40 mg INTRAVENOUS BID AC (0600/1600) metoprolol 5 mg injection (LOPRESSOR) 5 mg INTRAVENOUS q 6 HR NaCl 0.9% iv flush bag 20 mL INTRAVENOUS PRN ondansetron (PF) 4 mg injection (ZOFRAN) 4 mg INTRAVENOUS q 6 H PRN albuterol 2.5 mg /3 mL (0.083 %) 2.5 mg (PROVENTIL) 2.5 mg INHALATION q 6 H PRN fentaNYL 50 mcg/mL 25 mcg injection (SUBLIMAZE) 25 mcg INTRAVENOUS q 2 H PRN labetalol 10 mg injection syringe (NORMODYNE) 10 mg INTRAVENOUS q 2 H PRN hydrALAZINE 10 mg injection (APRESOLINE) 10 mg INTRAVENOUS q 1 H PRN diclofenac 1.3 % 1 Patch (FLECTOR) 1 Patch TRANSDERMAL BID And diclofenac - REMOVE PATCH OTHER BID And diclofenac - VERIFY PATCH OTHER q 8 H NaCl 0.9% iv infusion 5-30 mL/hr INTRAVENOUS CONTINUOUS bupivacaine 0.0625%-fentaNYL (PF) 2 mcg/mL epidural in NaCl 0.9% 250 mL EPIDURAL CONTINUOUS aspirin 81 mg chewable tab(s) 81 mg ORAL DAILY heparin 5,000 Units injection 5,000 Units SUBCUTANEOUS q 12 H Medication and Non-Pharmacologic VTE Prophylaxis/Anticoagulants Anticoagulant AND Antiplatelet Medications (From admission, onward) Start Dose Route Frequency Last Action Ordered Stop 09/07/23 1230 aspirin 81 mg chewable tab(s) 81 mg ORAL DAILY Given, 09/08 91509/07/23 1225 -- 09/07/23 1230 heparin 5,000 Units injection 5,000 Units SUBCUTANEOUS EVERY 12 HOURS Given, 09/08 200509/07/23 1225 -- 09/05/231914 vte pharmacologic prophylaxis contraindicated ([place]) 09/05/231914 pneumatic compression stockings ([place]) 09/05/231914 activity - mobilize patient [place]) VTE Prophylaxis: VTE prophylaxis appropriate ALLERGIES No Known Allergies Objective PHYSICAL EXAM: Patient Vitals for the past 24 hrs: BP Temp Temp src Pulse Resp SpO2 Weight 09/09/23 0712 148/68 -- Oral 84 20 97 % -- 09/09/23 0335 154/78 36.6 ?C (97.9 ?F) Oral 92 18 98 % 78.3 kg (172 lb 11.2 oz) 09/08/23 2325 145/65 36.4 ?C (97.5 ?F) Oral 84 18 97 % -- 09/08/23 1932 136/61 36.6 ?C (97.9 ?F) Oral 84 18 92 % -- 09/08/23 1912 122/64 -- -- 92 -- -- -- 09/08/23 1542 129/59 36.6 ?C (97.9 ?F) Oral 92 18 95 % -- 09/08/23 1320 121/81 -- -- 102 -- 96 % -- 09/08/23 1111 143/71 36.7 ?C (98.1 ?F) Oral 86 24 93 % -- Intake/Output Summary (Last 24 hours) at 09/09/2023 0832 Last data filed at 09/09/2023 0335 Gross per 24 hour Intake 60 ml Output 1350 ml Net -1290 ml CONSTITUTIONAL: No acute distress NEUROLOGIC/PSYCHIATRIC: Oriented ABDOMEN: Abdominal incision, CDI INTEGUMENTARY: Wound - No SURGICAL SITES: Abdomen - Clean, dry and intact MUSCULOSKELETAL: No deformities Pulses/Signals: PT palpable bilaterally DATA: Laboratory: Recent Labs 09/09/23 0532 09/08/23 0633 09/07/23 0640 WBC 10.38 13.29* 13.73* HB 10.7* 10.7* 10.7* HCT 31.8* 32.4* 32.4* PLT 157 142* 128* Recent Labs 09/09/23 0532 09/08/23 0633 09/07/23 0640 09/07/23 0035 NA 140 140 141 139 K 3.9 4.5 4.6 4.8 BUN 20 18 18 18 CREAT 0.77 0.91 1.00 1.01 GLUC 86 96 106* 103* MG 2.1 2.2 -- 2.1 Recent Labs 09/07/23 0640 09/07/23 0035 09/06/23 2242 APTT 25.8 26.4 25.0 INR <0.9* 0.9 1.0 Impression: Kris Cox is a 73 year old male with past medical/surgical history of GERD, duodenal stricture, HTN, HLD, and asymptomatic 5.5cm infrarenal AAA who is now s/p open AAA repair on 09/05. Plan: - Continue Asa and SQ heparin - Scheduled Tylenol, PRN Flexeril, Fentanyl, and Oxycodone - Continuous cardiac monitoring - Monitor electrolytes and supplement as needed - Hold on diuresis - PT/OT eval - Hold home amlodipine, lisinopril, metoprolol Succinate - Q4 hr vascular checks - CLD this AM - can advance to regular diet this afternoon for dinner if tolerates - APMS to remove epidural today - hold AM heparin dose - Daily labs - PRN Albuterol, Aggressive bronchopulmonary hygiene - OOB, Mobilize as tolerated - 1 unit of Platelets 09/06 - Maintain blood glucose - No glycemic concerns at this time Dispo: likely discharge home tomorrow SIGNATURE: Rashad Hugo MD PATIENT NAME: Kris Cox DATE: September 09, 2023 TIME: 8:32 AM (M-F 6a-6p) Vascular Surgery/Gener (more content not included)...[facility] [id number] NoteHNO ID: [id number] Author: Ryan Yoon RN Service: ? Author Type: Registered Nurse Type: Nursing Progress Note Filed: 09/09/2023 7:40 AM Note Text: [id number] Kris Sunshine Kennysanam La, has no tele order, Ryan. [id number] Medical [id number] NoteHNO ID: [id number] Author: Ryan Yoon RN Service: ? Author Type: Registered Nurse Type: Nursing Progress Note Filed: 09/08/2023 10:44 AM Note Text: 1035: Natarajan removed. 1040: This RN removed NG tube, patient tolerated procedure.[facility] 09-08-2023 NoteHNO ID: [id number] Author: Rashad Hugo MD Service: Vascular Surgery Author Type: Resident Type: Progress Notes Filed: 09/08/2023 10:37 AM Note Text: [facility]ULAR [facility]GERY PROGRESS NOTE Template ID: [id number] Service Date: 09/08/2023 Admit Date: 09/05/2023Service Time: 10:33 AM LOS: 3 day(s) Primary Service: Vascular Surgery Vascular Physician: Naif Graves MD Interval Events/Issues: No acute events No n/v NGT with scant bilious output Pain 0/10 Had BM but denies flatus Epidural in place Subjective Current Facility-Administered Medications Medication Dose Route Frequency magnesium sulfate 1 g in D5W 100 mL 1 g INTRAVENOUS PRN magnesium sulfate iv piggyback in sterile water 2 g 50 mL 2 g INTRAVENOUS PRN pantoprazole 40 mg injection (PROTONIX) 40 mg INTRAVENOUS BID AC (0600/1600) metoprolol 5 mg injection (LOPRESSOR) 5 mg INTRAVENOUS q 6 HR NaCl 0.9% iv flush bag 20 mL INTRAVENOUS PRN ondansetron (PF) 4 mg injection (ZOFRAN) 4 mg INTRAVENOUS q 6 H PRN albuterol 2.5 mg /3 mL (0.083 %) 2.5 mg (PROVENTIL) 2.5 mg INHALATION q 6 H PRN fentaNYL 50 mcg/mL 25 mcg injection (SUBLIMAZE) 25 mcg INTRAVENOUS q 2 H PRN labetalol 10 mg injection syringe (NORMODYNE) 10 mg INTRAVENOUS q 2 H PRN hydrALAZINE 10 mg injection (APRESOLINE) 10 mg INTRAVENOUS q 1 H PRN diclofenac 1.3 % 1 Patch (FLECTOR) 1 Patch TRANSDERMAL BID And diclofenac - REMOVE PATCH OTHER BID And diclofenac - VERIFY PATCH OTHER q 8 H NaCl 0.9% iv infusion 5-30 mL/hr INTRAVENOUS CONTINUOUS bupivacaine 0.0625%-fentaNYL (PF) 2 mcg/mL epidural in NaCl 0.9% 250 mL EPIDURAL CONTINUOUS aspirin 81 mg chewable tab(s) 81 mg ORAL DAILY heparin 5,000 Units injection 5,000 Units SUBCUTANEOUS q 12 H Medication and Non-Pharmacologic VTE Prophylaxis/Anticoagulants Anticoagulant AND Antiplatelet Medications (From admission, onward) Start Dose Route Frequency Last Action Ordered Stop 09/07/23 1230 aspirin 81 mg chewable tab(s) 81 mg ORAL DAILY Given, 09/08 91509/07/23 1225 -- 09/07/23 1230 heparin 5,000 Units injection 5,000 Units SUBCUTANEOUS EVERY 12 HOURS Given, 09/08 91509/07/23 1225 -- 09/05/231914 vte pharmacologic prophylaxis contraindicated ([place]) 09/05/231914 pneumatic compression stockings ([place]) 09/05/231914 activity - mobilize [place]) VTE Prophylaxis: VTE prophylaxis appropriate ALLERGIES No Known Allergies Objective PHYSICAL EXAM: Patient Vitals for the past 24 hrs: BP Temp Temp src Pulse Resp SpO2 Weight 09/08/23 0708 134/71 36.6 ?C (97.9 ?F) Oral 88 24 92 % -- 09/08/23 0333 135/59 36.8 ?C (98.2 ?F) Oral 81 18 90 % 84 kg (185 lb 3 oz) 09/07/23 2334 156/69 -- -- 85 -- -- -- 09/07/23 2312 161/72 36.6 ?C (97.9 ?F) Oral 91 17 91 % -- 09/07/23 1914 154/72 36.8 ?C (98.2 ?F) Oral 85 17 92 % -- 09/07/23 1847 140/64 -- -- 83 -- 97 % -- 09/07/23 1522 171/74 36.8 ?C (98.2 ?F) Oral 85 16 94 % -- 09/07/23 1346 160/68 -- -- 92 -- -- -- 09/07/23 1207 125/55 36.4 ?C (97.5 ?F) Oral 89 16 94 % -- Intake/Output Summary (Last 24 hours) at 09/08/2023 1033 Last data filed at 09/08/2023 0940 Gross per 24 hour Intake 60 ml Output 3400 ml Net -3340 ml CONSTITUTIONAL: No acute distress NEUROLOGIC/PSYCHIATRIC: Oriented ABDOMEN: Abdominal incision, CDI INTEGUMENTARY: Wound - No SURGICAL SITES: Abdomen - Clean, dry and intact MUSCULOSKELETAL: No deformities Pulses/Signals: PT palpable bilaterally DATA: Laboratory: Recent Labs 09/08/23 0633 09/07/23 0640 09/07/23 0035 WBC 13.29* 13.73* 12.63* HB 10.7* 10.7* 10.5* HCT 32.4* 32.4* 31.9* PLT 142* 128* 119* Recent Labs 09/08/23 0633 09/07/23 0640 09/07/23 0035 09/06/23 0614 09/06/23 0444 NA 140 141 139 < > -- K 4.5 4.6 4.8 < > -- BUN 18 18 18 < > -- CREAT 0.91 1.00 1.01 < > -- GLUC 96 106* 103* < > -- MG 2.2 -- 2.1 -- 1.9 < > = values in this interval not displayed. Recent Labs 09/07/23 0640 09/07/23 0035 09/06/23 2242 APTT 25.8 26.4 25.0 INR <0.9* 0.9 1.0 Impression: Kris Cox is a 73 year old male with past medical/surgical history of GERD, duodenal stricture, HTN, HLD, and asymptomatic 5.5cm infrarenal AAA who is now s/p open AAA repair on 09/05. Plan: - Continue Asa and SQ heparin - Scheduled Tylenol, PRN Flexeril, Fentanyl, and Oxycodone - Continuous cardiac monitoring - Monitor electrolytes and supplement as needed - Hold on diuresis - PT/OT eval - Hold home amlodipine, lisinopril, metoprolol Succinate - Q4 hr vascular checks - Dc NGT, to remain NPO except meds - APMS to remove epidural tomorrow - hold AM heparin dose - Remove natarajan - void check - Daily labs - PRN Albuterol, Aggressive bronchopulmonary hygiene - OOB, Mobilize as tolerated - 1 unit of Platelets 09/06 - Maintain blood glucose - No glycemic concerns at this time SIGNATURE: Rashad Hugo MD PATIENT NAME: Kris Cox DATE: September (more content not included)...[facility] CenterDqpyqfri[facility] NoteHNO ID: [id number] Author: Note, Interface Service: ? Author Type: ? Type: Progress Notes Filed: 09/08/2023 5:55 AM Note Text: Epic Scheduled Downtime: 09/08/2023 1:00:00 AM to 09/08/2023 5:38:00 [facility]12-01-2023 NoteHNO ID: [id number] Author: Fara Landis APRN.INESSA Service: Vascular Surgery Author Type: Nurse Practitioner Type: Progress Notes Filed: 09/07/2023 12:21 PM Note Text: Template ID: [id number] Service Date: 09/07/2023 Admit Date: 09/05/2023Service Time: 0840 LOS: 2 day(s) Primary Service: Vascular Surgery Vascular Physician: Naif Graves MD Interval Events/Issues: NAD, currently on 2L NC Pt seen with Dr. Graves Subjective Current Facility-Administered Medications Medication Dose Route Frequency Chlorhexidine Gluconate 0.12 % 15 mL (PERIDEX) 15 mL ORAL q 6 HR magnesium sulfate 1 g in D5W 100 mL 1 g INTRAVENOUS PRN magnesium sulfate iv piggyback in sterile water 2 g 50 mL 2 g INTRAVENOUS PRN pantoprazole 40 mg injection (PROTONIX) 40 mg INTRAVENOUS BID AC (0600/1600) metoprolol 5 mg injection (LOPRESSOR) 5 mg INTRAVENOUS q 6 HR NaCl 0.9% iv flush bag 20 mL INTRAVENOUS PRN ondansetron (PF) 4 mg injection (ZOFRAN) 4 mg INTRAVENOUS q 6 H PRN albuterol 2.5 mg /3 mL (0.083 %) 2.5 mg (PROVENTIL) 2.5 mg INHALATION q 6 H PRN fentaNYL 50 mcg/mL 25 mcg injection (SUBLIMAZE) 25 mcg INTRAVENOUS q 2 H PRN NaCl 0.9% iv infusion 100 mL/hr INTRAVENOUS CONTINUOUS labetalol 10 mg injection syringe (NORMODYNE) 10 mg INTRAVENOUS q 2 H PRN hydrALAZINE 10 mg injection (APRESOLINE) 10 mg INTRAVENOUS q 1 H PRN diclofenac 1.3 % 1 Patch (FLECTOR) 1 Patch TRANSDERMAL BID And diclofenac - REMOVE PATCH OTHER BID And diclofenac - VERIFY PATCH OTHER q 8 H bupivacaine 0.0625%-fentaNYL (PF) 2 mcg/mL epidural in NaCl 0.9% 250 mL EPIDURAL CONTINUOUS Medication and Non-Pharmacologic VTE Prophylaxis/Anticoagulants 09/05/231914 vte pharmacologic prophylaxis contraindicated ([place]) 09/05/231914 pneumatic compression stockings ([place] 09/05/231914 activity - mobilize patient ([place]) 09/05/231899 pneumatic compression stockings ([place]) VTE Prophylaxis: VTE prophylaxis appropriate ALLERGIES No Known Allergies Objective PHYSICAL EXAM: Patient Vitals for the past 24 hrs: BP Temp Temp src Pulse Resp SpO2 Weight 09/07/23 1000 93/56 -- -- 74 27 96 % -- 09/07/23 0900 100/53 -- -- 80 25 98 % -- 09/07/23 0900 100/53 -- -- 83 25 98 % -- 09/07/23 0818 100/50 -- -- 77 24 98 % -- 09/07/23 0800 84/51 36.7 ?C (98.1 ?F) Oral 85 27 98 % -- 09/07/23 0700 95/54 -- -- 82 22 94 % -- 09/07/23 0600 124/67 -- -- 96 17 94 % -- 09/07/23 0500 133/60 -- -- 83 23 94 % -- 09/07/23 0400 124/65 36.8 ?C (98.2 ?F) Oral 95 20 92 % 82.8 kg (182 lb 8.7 oz) 09/07/23 0300 111/56 -- -- 76 21 92 % -- 09/07/23 0200 122/56 -- -- 82 25 93 % -- 09/07/23 0106 131/60 -- -- 92 -- -- -- 09/07/23 0100 131/60 -- -- 100 (!) 32 91 % -- 09/07/23 0000 126/57 37 ?C (98.6 ?F) Oral 88 19 94 % 85.9 kg (189 lb 6 oz) 09/06/232214 114/52 -- -- 81 23 92 % -- 09/06/232114 131/67 -- -- 91 23 91 % -- 09/06/232014 113/57 -- -- 95 21 93 % -- 09/06/232011 111/55 -- -- 92 -- -- -- 09/06/231999 -- 37.9 ?C (100.2 ?F) Oral -- -- -- -- 09/06/23 1915 129/62 -- -- 106 20 91 % -- 09/06/23 1900 124/55 -- -- 94 24 92 % -- 09/06/23 1815 107/53 -- -- 85 19 93 % -- 09/06/23 1800 106/53 -- -- 86 21 93 % -- 09/06/23 1700 123/55 -- -- 96 24 94 % -- 09/06/23 1651 (!) 105/46 -- -- 86 21 96 % -- 09/06/23 1600 (!) 107/48 36.7 ?C (98.1 ?F) Oral 85 14 90 % -- 09/06/23 1500 (!) 101/45 -- -- 87 20 95 % -- 09/06/23 1400 131/63 -- -- 92 22 97 % -- 09/06/23 1341 146/70 -- -- 92 17 97 % -- 09/06/23 1300 120/63 -- -- 103 23 97 % -- 09/06/23 1200 119/61 36.8 ?C (98.2 ?F) Oral 81 18 97 % -- Intake/Output Summary (Last 24 hours) at 09/07/2023 1159 Last data filed at 09/07/2023 0900 Gross per 24 hour Intake 5578 ml Output 2200 ml Net 3378 ml CONSTITUTIONAL: No acute distress NEUROLOGIC/PSYCHIATRIC: Oriented to time, place AND person HEENT: Sclera clear LUNGS: bilateral chest rise, lungs clear ABDOMEN: Lower abdominal incision, CDI HEART: Regular rate and rhythm INTEGUMENTARY: Wound - No SURGICAL SITES: Abdomen - Clean, dry and intact MUSCULOSKELETAL: No deformities Pulses/Signals: Dorsalis Pedis Right: Biphasic Signal - Left: Biphasic Signal Posterior Tibial Right: Biphasic Signal - Left: Biphasic Signal DATA: Laboratory: Recent Labs 09/07/23 0640 09/07/23 0035 09/06/23 2242 WBC 13.73* 12.63* 12.08* HB 10.7* 10.5* 10.1* HCT 32.4* 31.9* 30.9* PLT 128* 119* 126* Recent Labs 09/07/23 0640 09/07/23 0035 09/06/23 2242 09/06/23 0614 09/06/23 0444 09/06/23 0106 09/05/23 1909 NA 141 139 139 < > -- < > 140 140 K 4.6 4.8 4.3 < > -- < > 4.7 4.7 BUN 18 18 18 < > -- < > 18 18 CREAT 1.00 1.01 0.99 < > -- < > 0.96 0.96 GLUC 106* 103* 103* < > -- < > 145* 145* MG -- 2.1 -- -- 1.9 -- 1.6* < > = values in this interval not displayed. Recent Labs 09/07/23 0640 09/07/23 0035 09/06/23 2242 APTT 25.8 26.4 25.0 INR <0.9* 0.9 1.0 Impression: Kris Cox is a 73 year old male (more content not included)...[facility] CenterPptztdik48-51-0541 NoteHNO ID: [id number] Author: Elmer Beach MD Service: Critical Care Author Type: Physician Type: Progress Notes Filed: 09/07/2023 4:14 PM Note Text: [place] [facility] Progress Note Name: Kris Cox Admission Date: 09/05/2023 Hospital Day: # 2 2 Days Post-Op Care Coordination Note Kris Cox is a 73 year old male with past medical/surgical history of GERD, duodenal stricture, HTN, HLD, and asymptomatic 5.5cm infrarenal AAA who is now s/p open AAA repair on 09/05. Patient was extubated 09/06. Weaning oxygen and currently on 2L NC. Hemodynamically has remained stable since epidural was turned off. Making adequate urine. Hgb has been >10. Stable pulse exam. Transfer patient to [facility]. REASON FOR ICU ADMISSION: Neurovascular and hemodynamic monitoring Neuro: # Acute postoperative pain Pain: Scheduled Tylenol, flector patch; PRN Flexeril, Fentanyl, and Oxycodone CV: #CAD, HTN, AAA repair Maintain MAP >/65 Continuous cardiac monitoring Monitor electrolytes and supplement as needed On metoprolol 5mg IV q6h and home lipitor Holding home amlodipine, lisinopril, metoprolol Succinate while NG tube in place Pulm: wean supplemental oxygen as able Oxygen management per RT protocol PRN Albuterol Aggressive bronchopulmonary hygiene Renal: Daily BMP/Mg Maintain natarajan catheter while epidural is in place Strict IANDOs Daily weight GI: NPO NG to LIWS PRN Zofran for nausea Heme: Q6hr: CBC, PTT, fibrinogen per vascular Hemoglobin >10 Platelets >100 INR < 1.5 aPTT <35 Fibrinogen >150 Fluid/Electrolyte/Nutrition: Continuous IVF (LR @ 100 ml/hr) Monitor electrolytes and supplement as needed Endo: Maintain blood glucose Q6h accuchecks ID:? No infectious concerns at this time Completed periop antibiotics PPX: DVT: SCDs, will await vascular plan regarding pharm ppx Stress ulcers: Protonix Lines/Drains: PIV x 2 Epidural Keep Natarajan catheter today Dispo: Transfer to [facility] Seen and discussed on rounds with SICU staff: Dr. Rawls Other Problems I Reviewed and/or Managed During This Encounter: Principal Problem: AAA (abdominal aortic aneurysm) without rupture (HCC) (POA: Yes) Active Problems: Hypertension (POA: Yes) Hyperlipidemia (POA: Yes) GERD (gastroesophageal reflux disease) (POA: Yes) Coronary artery disease (POA: Yes) AAA (abdominal aortic aneurysm) (HCC) (POA: Yes) Overweight (BMI 25.0-29.9) (POA: Yes) Acute post-operative pain (POA: Unknown) Resolved Problems: * No resolved hospital problems. * No problems updated. Physical Exam Vitals: 09/07/23 0818 09/07/23 0900 09/07/23 0900 09/07/23 1000 Pulse: 77 83 80 74 BP: 100/50 100/53 100/53 93/56 MAP Non Invasive (Mean Arterial Pressure): 66 67 67 69 Arterial BP 1: MAP Invasive (Mean Arterial Pressure) 1: Resp: 24 25 25 27 SpO2: 98% 98% 98% 96% Additional Cardiac Parameters 09/06/23 1030 09/06/23 1100 09/06/23 1200 09/06/23 1300 CVP: 2 1 1 3 Weight: 84.2 kg (185 lb 10 oz) (09/05/23 1900) Weight: 82.8 kg (182 lb 8.7 oz) (09/07/23 0400) Ventilator: N/A, patient is extubated Vent/Oxygen: O2 Therapy: Nasal Cannula (09/07/23 0800) Liters: 2 (09/07/23 08) PHYSICAL EXAMINATION: Choices are re-selectable with a right click General Appearance and Neuro: General and Neuro: NAD, follows commands, moving all extremities Heart AND Vascular: Cardiovascular: NSR and Pulses dopplerable Lung: Lung: Lungs clear to auscultation. No wheezing, rhonchi, or rales Abdomen: Abdomen: Soft, Distended, and NG/OGT Renal: Renal: Adequate UOP Extremities/MSK/Incision: Extremities/MSK/Incision: No edema, warm Diagnostic tests reviewed DIAGNOSTIC TEST REVIEWED: Most recent labs and imaging results. CBC, Coags, BMP, Mg, Phos Recent Labs 09/07/23 0640 09/07/23 0035 09/06/23 2242 09/06/23 0614 09/06/23 0444 09/06/23 0106 09/05/23 1909 WBC 13.73* 12.63* 12.08* < > -- < > 13.03* HB 10.7* 10.5* 10.1* < > -- < > 13.1 HCT 32.4* 31.9* 30.9* < > -- < > 38.4* PLT 128* 119* 126* < > -- < > 107* INR <0.9* 0.9 1.0 < > -- < > 1.0 APTT 25.8 26.4 25.0 < > -- < > 29.3 NA 141 139 139 < > -- < > 140 140 K 4.6 4.8 4.3 < > -- < > 4.7 4.7 CHLOR 106* 105 103 < > -- < > 105 105 CO2 26 26 27 < > -- < > 23 23 BUN 18 18 18 < > -- < > 18 18 CREAT 1.00 1.01 0.99 < > -- < > 0.96 0.96 GLUC 106* 103* 103* < > -- < > 145* 145* CA 8.1* 8.1* 7.9* < > -- < > 9.1 9.1 MG -- 2.1 -- -- 1.9 -- 1.6* P -- 3.3 -- -- 2.5* -- 4.8 < > = values in this interval not displayed. Intake / Output Intake/Output Summary (Last 24 hours) at 09/07/2023 1157 Last data filed at 09/07/2023 0900 Gross per 24 hour Intake 5578 ml Output 2200 ml Net 3378 ml Supportive Therapies DIET: DIET NPO GI PROPHYLAXIS: [] No Need [x] Protonix [] Famotidine Glycemic control: Accu-check only DVT: Current Anticoagulants AND Antiplatelets (From admission, onward) (more content not included)...[facility] CenterEpaoimms45-22-1049 NoteHNO ID: [id number] Author: Elmer Beach MD Service: Critical Care Author Type: Physician Type: Progress Notes Filed: 09/07/2023 11:22 AM Note Text: Documentation Query Based on your medical judgment of the clinical indicators outlined below, please clarify the condition: (Please type X next to your response and sign) The Op Report and Other for this patient stated the followin/29 Brief Op note-...CHRIS AAA: Open AAA Renal/Visceral Ischemic...Findings: Infrarenal AAA...Estimated Blood Loss: 5869 mls... 09/05 Critical Care Progress note-...Operative Course:...Blood: 100mL Cryo, 1120mL Plasma, 530mL Platelet...Intake: 6.5L Crystalloids, 500mL Albumin, 2,475 Cell Saver... 09/05 Vascular Surgery Plan of Care-...Hem: Transfuse as need to maintain the following in the first 24 hours...post-op:...Hemoglobin >10...Platelets >100... Lab results (see full report in EPIC) Date Lab Results 09/05 HGB 14.6 09/05 HGB 13.1 09/06 HGB 12.1 09/07 HGB 10.5 09/05 Platelet count 133 09/05 Platelet count 107 09/05 Platelet count 104 09/06 Platelet count 98 09/07 Platelet count 128 Please clarify the diagnosis associated with the above clinical indicators x Acute Blood Loss Anemia Postoperative anemia due to blood loss Other, please specify Please clarify the diagnosis associated with the above clinical indicators x Thrombocytopenia Other, please specify [facility] CenterTtuawqhc72-08-8750 NoteHNO ID: [id number] Author: Fransisco Kerns RN Service: Care Management Author Type: Registered Nurse Type: Care Mgt Initial Assessment Filed: 09/06/2023 3:42 PM Note Text: CARE MANAGEMENT: ASSESSMENT AND DISCHARGE PLAN SERVICE DATE: September 06, 2023 SERVICE TIME: 1530 PCP: Samuel Foy MD Primary Contact: Extended Emergency Contact Information Primary Emergency Contact: Rhonda Bruner Mobile Relation: Daughter Secondary Emergency Contact: ISREAL FLORES Mobile Relation: Friend Admission Status: Inpatient Insurance Provider: [place] MEDICARE Discharge Planning requested by: Per Department Practice Potential Transition Plans To Be Determined Advance Directives Current Advance Directive: Health Care Power of Steam Meter Reader;Living Will In Chart: Yes Up To Date and Valid: Yes Current Living Arrangements and Support Lives with: Alone Type of Residence: Private Residence (Apartment or Condo) Does the patient have to climb stairs at home?: No Support: Children, Family members, Friends/neighbors How do you manage to accomplish the following: Independent: Ambulation;Bathe/Shower;Dress;Meals/Meal Prep;Going to the bathroom;Medication Management;Transportation to appointments/community Current Services/Equipment Current Post-Acute Service(s): None Discharge Planning Patient Goal(s): Be able to go home, General wellness [place] Explained: [place] Given: No Reason Not Given: Unable to complete with this assessment - revisit Are you interested in bedside delivery of your medications? No Discharge Planning Participant(s): Patient Patient/Family Comments: none Caregiver Assessment: Caregiver is ready, willing and able to meet the patient's needs as recommended by the inter-professional team: No Caregiver needed Transport at Discharge: Transportation Arrangements: Car Destination: Home Needs Prior to Discharge: Needs Prior to Discharge: To Be Determined;OT/PT Evaluation Post-Acute Discharge Plan: Patient is a 73 yo M with PMH of GERD, duodenal stricture, HTN, HLD, and asymptomatic 5.5cm infrarenal AAA who is now s/p open AAA repair on 09/05. Patient from home alone, IPTA. Patient states does not use any DME or oxygen at home. Lives in apartment alone, no steps or stairs. Daughter and friend at bedside. Further needs TBD pending hospital course and consults. Anticipate patient to benefit from PT/OT assessment. CM following. Daughter will transport at time of discharge if appropriate. NOK: Daughter Rhonda Bruner SIGNATURE: Fransisco Kerns RN PATIENT NAME: Kris Cox DATE: September 06, 2023 TIME: 3:39 PM CONTACT #: [phone] [id number] NoteHNO ID: [id number] Author: Wyatt, Kayla, RN Service: Nursing Author Type: Registered Nurse Type: Nursing Progress Note Filed: 09/06/2023 11:42 AM Note Text: 0700 Per kath Scott to use cuff pressures.[facility] CenterEesontwd94-30-7325 NoteHNO ID: [id number] Author: Elmer Beach MD Service: Critical Care Author Type: Physician Type: Progress Notes Filed: 09/06/2023 3:17 PM Note Text: SICU progress NOTE SERVICE DATE: 09/05/2023 SERVICE TIME: 10:55 AM Subjective HPI: Kris Cox is a 73 year old male with past medical/surgical history of GERD, duodenal stricture, HTN, HLD, and asymptomatic 5.5cm infrarenal AAA who is now s/p open AAA repair on 09/05. The patient is awake and alert this morning and following commands. His pain is controlled. He is intubated and sedated. Overnight he had an episode where his HR dropped to 42 with BP 200 and he was asleep and not following commands. The epidural and mony were turned off. One dose of atropine was given and the patient's vitals improved. He was placed back on mony after this episode with issues. Operative Course: Airway: grade I, Rao, ETT size 8.0 EBL: 6L Blood: 100mL Cryo, 1120mL Plasma, 530mL Platelet Intake: 6.5L Crystalloids, 500mL Albumin, 2,475 Cell Saver UOP: 2,050mL PAST MEDICAL HISTORY Diagnosis Date AAA (abdominal aortic [facility]ani's es[facility] 2009 Needs repeat EGD 04/2023. CAD (coronary artery disease) 2002 stress test abnormal Diverticulosis Duodenal stricture Dr. Moran Duodenitis without mention of hemorrhage Erectile dysfunction Esophagitis, unspecified Gout History of colonoscopy HTN (hypertension) Hyperlipidemia Impaired fasting glucose Overweight (BMI 25.0-29.9) Vertigo PAST SURGICAL HISTORY Procedure Laterality Date CARDIAC CATH 04/30/2007 COLONOSCOPY FLX DX W/COLLJ SPEC WHEN PFRMD 10/25/2012 few diverticula - 10 year follow up COLONOSCOPY FLX DX W/COLLJ SPEC WHEN PFRMD 07/28/2020 Colonoscopy EGD 12/03/2009 dx barretts esophagus EGD 06/10/2009 h-pylori negative EGD BALLOON DILATION ESOPHAGUS <30 MM DIAM 01/30/2011 EGD TRANSORAL BIOPSY SINGLE/MULTIPLE 10/25/2012 duodenitis, gastric ulcer, gastritis, small hiatal hernia, multani's esophagitis EGD W/O [facility] SPEC VARICIES INJ 12/16/2021 ESOPHAGOGASTRODUODENOSCOPY TRANSORAL DIAGNOSTIC 07/28/2020 EGD EXPLORATORY SHOULDER SURGERY 1965 repair dislcoation. left FRACTURE SURGERY Left 1961 Fractured collar bone with surgery INCISE FINGER TENDON SHEATH Right 07/19/2023 Right index trigger finger release PAST SURGICAL HISTORY OF right and left meniscus surgeries of knee PAST SURGICAL HISTORY OF 2008 right middle finger trigger repair PAST SURGICAL HISTORY OF 08/02/2012 right ring trigger finger release PAST SURGICAL HISTORY OF 01/09/2014 Left 3rd finger trigger release TONSILLECTOMY HX FAMILY HISTORY Problem Relation Age of Onset Cancer Mother liver Heart Father Lipids Father other (depression) Sister Multiple Sclerosis Brother Anesthesia Problems No Family History Social History Tobacco Use Smoking status: Former Packs/day: 1.00 Years: 15.00 Additional pack years: 0.00 Total pack years: 15.00 Types: Cigarettes Quit date: 06/08/2002 Years since quittin.2 Smokeless tobacco: Never Vaping Use Vaping Use: Never used Substance Use Topics Alcohol use: Yes Comment: very seldom, not even 1 drink per month Drug use: No PRIOR TO ADMISSION MEDICATIONS lisinopril (ZESTRIL) 40 mg tablet, Take 1 tablet by mouth once daily., Disp: 90 tablet, Rfl: 1, 09/04/[address] (PROTONIX) 40 mg tablet, Take 1 tablet by mouth two times a day. Take on empty stomach, 1/2 hr before meal., Disp: 180 tablet, Rfl: 1, 09/04/2023 metoprolol succinate ER (TOPROL XL) 100 mg, Take 1 tablet by mouth once daily., Disp: 90 tablet, Rfl: 1, 09/04/2023 amLODIPine (NORVASC) 5 mg tablet, Take 1 tablet by mouth once daily., Disp: 90 tablet, Rfl: 1, 09/04/2023 colchicine 0.6 mg tablet, Take 2 tabs by mouth, followed by 1 tab one hour later for gout flare. May repeat in 1 week., Disp: 6 tablet, Rfl: 0, 09/04/2023 atorvastatin (LIPITOR) 20 mg tablet, Take 1 tablet by mouth once daily. For cholesterol, Disp: 90 tablet, Rfl: 1, 09/04/2023 allopurinol (ZYLOPRIM) 100 mg tablet, Take 2 tablets by mouth once daily. For gout., Disp: 180 tablet, Rfl: 1, 09/04/2023 amLODIPine (NORVASC) 2.5 mg tablet, Take one tablet daily along with 5 mg tablet, Disp: 90 tablet, Rfl: 1, 09/04/2023 naproxen (NAPROSYN) 500 mg tablet, Take 1 tablet by mouth twice daily as needed (gout flare). Take with food., Disp: 60 tablet, Rfl: 0, Unknown meclizine (ANTIVERT) 25 mg tab, Take 1 tablet by mouth twice daily as needed. TAKE 1 TABLET BY MOUTH NEEDED. USES FOR TRAVELING ONLY., Disp: 20 tablet, Rfl: 1, 09/04/2023 ALLERGIES No Known Allergies Objective VITAL SIGNS BP 172/75 Pulse 85 Temp 36.7 ?C (98.1 ?F) (Oral) Resp 15 Ht 170.2 cm (5' 7.01) Wt 81.6 kg (179 lb 14.3 oz) SpO2 96% BMI 28.17 kg/m? Body mass index is 28.17 kg/m?. PHYSICAL EXAM GENERAL: Intubated, awake, alert and follows comman (more content not included)...[facility] CenterInjzwiyc91-45-8455 NoteHNO ID: [id number] Author: Fara Landis APRN.PROFILE STITCHING MACHINE OPERATOR Service: Vascular Surgery Author Type: Nurse Practitioner Type: Progress Notes Filed: 09/06/2023 11:53 AM Note Text: Template ID: [id number] Service Date: 09/06/2023 Admit Date: 09/05/2023Service Time: 1010 LOS: 1 day(s) Primary Service: Vascular Surgery Vascular Physician: Naif Graves MD Interval Events/Issues: Recently extubated Reports lower back pain, denies Abdominal pain or CP. Subjective Current Facility-Administered Medications Medication Dose Route Frequency bupivacaine 0.1%-fentaNYL 2 mcg/mL epidural in NaCl 0.9% 300 mL EPIDURAL CONTINUOUS atorvastatin 20 mg tab(s) (LIPITOR) 20 mg ORAL AT BEDTIME Chlorhexidine Gluconate 0.12 % 15 mL (PERIDEX) 15 mL ORAL q 6 HR magnesium sulfate 1 g in D5W 100 mL 1 g INTRAVENOUS PRN magnesium sulfate iv piggyback in sterile water 2 g 50 mL 2 g INTRAVENOUS PRN pantoprazole 40 mg injection (PROTONIX) 40 mg INTRAVENOUS BID AC (0600/1600) metoprolol 5 mg injection (LOPRESSOR) 5 mg INTRAVENOUS q 6 HR PHENYLephrine 80 mg in D5W 250 mL (MONY-SYNEPHRINE) 25-300 mcg/min INTRAVENOUS CONTINUOUS NaCl 0.9% iv flush bag 20 mL INTRAVENOUS PRN ondansetron 4 mg tab(s) (ZOFRAN) 4 mg ORAL q 6 H PRN Or ondansetron (PF) 4 mg injection (ZOFRAN) 4 mg INTRAVENOUS q 6 H PRN acetaminophen 650 mg tab(s) (TYLENOL) 650 mg ORAL/FEEDING TUBE q 6 H albuterol 2.5 mg /3 mL (0.083 %) 2.5 mg (PROVENTIL) 2.5 mg INHALATION q 6 H PRN fentaNYL 50 mcg/mL 25 mcg injection (SUBLIMAZE) 25 mcg INTRAVENOUS q 2 H PRN NaCl 0.9% iv infusion 100 mL/hr INTRAVENOUS CONTINUOUS sodium phosphate 15 mmol in D5W 250 mL 15 mmol INTRAVENOUS ONCE labetalol 10 mg injection syringe (NORMODYNE) 10 mg INTRAVENOUS q 2 H PRN hydrALAZINE 10 mg injection (APRESOLINE) 10 mg INTRAVENOUS q 1 H PRN diclofenac 1.3 % 1 Patch (FLECTOR) 1 Patch TRANSDERMAL BID And diclofenac - REMOVE PATCH OTHER BID And diclofenac - VERIFY PATCH OTHER q 8 H Medication and Non-Pharmacologic VTE Prophylaxis/Anticoagulants 09/05/231914 vte pharmacologic prophylaxis contraindicated ([place] 09/05/231914 pneumatic compression stockings ([place]) 09/05/231914 activity - mobilize patient ([place]) 09/05/231899 vte pharmacologic prophylaxis contraindicated ([place]) 09/05/231899 pneumatic compression stockings ([place] VTE Prophylaxis: VTE prophylaxis appropriate ALLERGIES No Known Allergies Objective PHYSICAL EXAM: Patient Vitals for the past 24 hrs: BP Temp Temp src Pulse Resp SpO2 Height Weight 09/06/23 0921 172/75 36.7 ?C (98.1 ?F) Oral 85 15 -- -- -- 09/06/23 0912 171/89 37.2 ?C (99 ?F) -- 84 15 96 % -- -- 09/06/23 0900 169/75 -- -- 89 16 96 % -- -- 09/06/23 0857 161/70 36.7 ?C (98.1 ?F) -- 79 20 -- -- -- 09/06/23 0828 173/75 -- -- 87 20 95 % -- -- 09/06/23 0800 168/69 36.6 ?C (97.9 ?F) Oral 81 16 97 % -- -- 09/06/23 0745 -- -- -- 95 17 98 % -- -- 09/06/23 0700 150/68 -- -- 77 15 96 % -- -- 09/06/23 0600 146/66 -- -- 70 15 95 % -- -- 09/06/23 0500 157/71 -- -- 76 20 98 % -- 81.6 kg (179 lb 14.3 oz) 09/06/23 0400 146/66 36.9 ?C (98.4 ?F) Axillary 67 15 98 % -- -- 09/06/23 0359 -- -- -- 69 15 97 % -- -- 09/06/23 0345 -- -- -- 61 15 98 % -- -- 09/06/23 0330 -- -- -- 62 15 97 % -- -- 09/06/23 0315 115/68 -- -- 77 17 95 % -- -- 09/06/23 0300 (!) 217/180 -- -- 88 19 95 % -- -- 09/06/23 0245 -- -- -- 78 20 96 % -- -- 09/06/23 0230 145/80 -- -- 72 20 96 % -- -- 09/06/23 0215 -- -- -- (!) 57 15 97 % -- -- 09/06/23 0200 129/59 -- -- (!) 55 15 97 % -- -- 09/06/23 0145 96/51 -- -- 67 15 96 % -- -- 09/06/23 0130 148/86 -- -- (!) 48 16 98 % -- -- 09/06/23 0115 158/61 -- -- 78 24 93 % -- -- 09/06/23 0100 100/60 -- -- 75 17 97 % -- -- 09/06/23 0045 (!) 232/220 -- -- 79 16 97 % -- -- 09/06/23 0030 159/114 -- -- 69 15 97 % -- -- 09/06/23 0015 -- -- -- (!) 49 15 97 % -- -- 09/06/23 0000 96/50 36.6 ?C (97.9 ?F) Axillary 64 15 96 % -- -- 09/05/232344 -- -- -- 75 14 99 % -- -- 09/05/232339 -- -- -- 70 15 99 % -- -- 09/05/232329 -- -- -- 64 13 99 % -- -- 09/05/232314 -- -- -- 71 15 99 % -- -- 09/05/232299 103/54 -- -- (!) 58 16 99 % -- -- 09/05/232244 103/52 -- -- 78 24 98 % -- -- 09/05/232229 -- -- -- 64 15 99 % -- -- 09/05/232214 -- -- -- 71 18 99 % -- -- 09/05/232199 114/56 -- -- 67 16 100 % -- -- 09/05/232144 -- -- -- 74 17 100 % -- -- 09/05/232129 -- -- -- 63 15 100 % -- -- 09/05/232114 -- -- -- (!) 58 15 100 % -- -- 09/05/23 2100 124/62 -- -- (!) 57 15 100 % -- -- 09/05/232044 119/60 -- -- (!) 56 16 100 % -- -- 09/05/232029 98/55 -- -- 69 15 99 % -- -- 09/05/232014 -- -- -- 65 15 99 % -- -- 09/05/231999 119/61 36.7 ?C (98.1 ?F) Oral 63 15 100 % -- -- 09/05/231944 130/63 -- -- 69 15 99 % -- -- 09/05/231929 104/57 -- -- 70 15 99 % -- -- 09/05/231914 118/66 -- -- 80 18 97 % -- -- 09/05/23 190 89/54 -- -- 72 16 98 % 170.2 cm (5' 7.01) 84.2 kg (185 lb 10 oz) 09/05/23 185 -- -- -- 64 16 10 (more content not included)...[facility] 09-05-2023 NoteHNO ID: [id number] Author: Mohamud Caro MD Service: Vascular Surgery Author Type: Resident Type: Plan of Care Filed: 09/05/2023 6:43 PM Note Text: Vascular Surgery Plan of Care for Open AAA repair: Cardiac: SBP 100-160 Call if patient started on pressors. Respiratory: Encourage incentive spirometry once extubated. Wean supplemental O2 as tolerated. GI: Strict NPO. Call for bloody BM. Fluids: IVF @ 200 cc/hr overnight (POD 0). DO NOT give lasix unless cleared by Vascular Staff. Renal: Maintain natarajan. Call if urine output < 30 cc/hr. Hem: Transfuse as need to maintain the following in the first 24 hours post-op: Hemoglobin >10 Platelets >100 INR < 1.5 aPTT <35 Fibrinogen >150 ID: ATB 24 hours post-op Activity: OOB in am if HD stable Prophylaxis: IPC, Please call with questions. Mohamud Caro MDHolyoke Medical [id number] NoteHNO ID: [id number] Author: Gus Russell APRN.CNP Service: Critical Care Author Type: Nurse Practitioner Type: Progress Notes Filed: 09/05/2023 10:06 PM Note Text: SICU HANDP NOTE SERVICE DATE: 09/05/2023 SERVICE TIME: 5:33 PM Subjective HPI: Kris Cox is a 73 year old male with past medical/surgical history of GERD, duodenal stricture, HTN, HLD, and asymptomatic 5.5cm infrarenal AAA who is now s/p open AAA repair on 09/05. Operative Course: Airway: grade I, Rao, ETT size 8.0 EBL: 6L Blood: 100mL Cryo, 1120mL Plasma, 530mL Platelet Intake: 6.5L Crystalloids, 500mL Albumin, 2,475 Cell Saver UOP: 2,050mL PAST MEDICAL HISTORY Diagnosis Date AAA (abdominal aortic aneurysm) (HCC) Dr. Araujo- Multani's esophagus 2009 Needs repeat EGD 04/2023. CAD (coronary artery disease) 2002 stress test abnormal Diverticulosis Duodenal stricture Dr. Moran Duodenitis without mention of hemorrhage Erectile dysfunction Esophagitis, unspecified Gout History of colonoscopy HTN (hypertension) Hyperlipidemia Impaired fasting glucose Overweight (BMI 25.0-29.9) Vertigo PAST SURGICAL HISTORY Procedure Laterality Date CARDIAC CATH 04/30/2007 COLONOSCOPY FLX DX W/COLLJ SPEC WHEN PFRMD 10/25/2012 few diverticula - 10 year follow up COLONOSCOPY FLX DX W/COLLJ SPEC WHEN PFRMD 07/28/2020 Colonoscopy EGD 12/03/2009 dx barretts esophagus EGD 06/10/2009 h-pylori negative EGD BALLOON DILATION ESOPHAGUS <30 MM DIAM 01/30/2011 EGD TRANSORAL BIOPSY SINGLE/MULTIPLE 10/25/2012 duodenitis, gastric ulcer, gastritis, small hiatal hernia, multani's esophagitis EGD W/O [facility] SPEC VARICIES INJ 12/16/2021 ESOPHAGOGASTRODUODENOSCOPY TRANSORAL DIAGNOSTIC 07/28/2020 EGD EXPLORATORY SHOULDER SURGERY 1965 repair dislcoation. left FRACTURE SURGERY Left 1961 Fractured collar bone with surgery INCISE FINGER TENDON SHEATH Right 07/19/2023 Right index trigger finger release PAST SURGICAL HISTORY OF right and left meniscus surgeries of knee PAST SURGICAL HISTORY OF 2008 right middle finger trigger repair PAST SURGICAL HISTORY OF 08/02/2012 right ring trigger finger release PAST SURGICAL HISTORY OF 01/09/2014 Left 3rd finger trigger release TONSILLECTOMY HX FAMILY HISTORY Problem Relation Age of Onset Cancer Mother liver Heart Father Lipids Father other (depression) Sister Multiple Sclerosis Brother Anesthesia Problems No Family History Social History Tobacco Use Smoking status: Former Packs/day: 1.00 Years: 15.00 Additional pack years: 0.00 Total pack years: 15.00 Types: Cigarettes Quit date: 06/08/2002 Years since quittin.2 Smokeless tobacco: Never Vaping Use Vaping Use: Never used Substance Use Topics Alcohol use: Yes Comment: very seldom, not even 1 drink per month Drug use: No PRIOR TO ADMISSION MEDICATIONS lisinopril (ZESTRIL) 40 mg tablet, Take 1 tablet by mouth once daily., Disp: 90 tablet, Rfl: 1, 09/04/[address] (PROTONIX) 40 mg tablet, Take 1 tablet by mouth two times a day. Take on empty stomach, 1/2 hr before meal., Disp: 180 tablet, Rfl: 1, 09/04/2023 metoprolol succinate ER (TOPROL XL) 100 mg, Take 1 tablet by mouth once daily., Disp: 90 tablet, Rfl: 1, 09/04/2023 amLODIPine (NORVASC) 5 mg tablet, Take 1 tablet by mouth once daily., Disp: 90 tablet, Rfl: 1, 09/04/2023 colchicine 0.6 mg tablet, Take 2 tabs by mouth, followed by 1 tab one hour later for gout flare. May repeat in 1 week., Disp: 6 tablet, Rfl: 0, 09/04/2023 atorvastatin (LIPITOR) 20 mg tablet, Take 1 tablet by mouth once daily. For cholesterol, Disp: 90 tablet, Rfl: 1, 09/04/2023 allopurinol (ZYLOPRIM) 100 mg tablet, Take 2 tablets by mouth once daily. For gout., Disp: 180 tablet, Rfl: 1, 09/04/2023 amLODIPine (NORVASC) 2.5 mg tablet, Take one tablet daily along with 5 mg tablet, Disp: 90 tablet, Rfl: 1, 09/04/2023 naproxen (NAPROSYN) 500 mg tablet, Take 1 tablet by mouth twice daily as needed (gout flare). Take with food., Disp: 60 tablet, Rfl: 0, Unknown meclizine (ANTIVERT) 25 mg tab, Take 1 tablet by mouth twice daily as needed. TAKE 1 TABLET BY MOUTH NEEDED. USES FOR TRAVELING ONLY., Disp: 20 tablet, Rfl: 1, 09/04/2023 ALLERGIES No Known Allergies Objective VITAL SIGNS BP 97/64 Pulse 74 Temp 36.6 ?C (97.9 ?F) (Temporal) Resp 17 SpO2 96% There is no height or weight on file to calculate BMI. PHYSICAL EXAM GENERAL: Sedated NEURO: Sedated CARDIAC: Regular rate and rhythm LUNGS: Intubated, bilateral chest rise, lungs clear ABDOMEN: Lower abdominal incision, CDI EXTREMITIES: Warm and well perfused DATA: Diagnostic tests reviewed for today's visit: Labs: CBC, BMP, MG, PHOS Recent Labs 09/05/23 1434 08/25/23 1137 07/10/23 0902 02/15/23 0748 11/20/22 0933 07/18/22 1101 05/04/22 1627 03/23/22 1217 WBC 22.81* 7.41 -- -- 8.52 -- -- 4.81 HB 14.6 16.9 -- -- 14.8 (more content not included)...[facility] 09-05-2023 NoteHNO ID: [id number] Author: Elmer Willis APRN.ESVIN Service: ? Author Type: Nurse Ball Mill Mixer Type: Anesthesia Procedure Notes Filed: 09/05/2023 8:56 AM Note Text: ANESTHESIOLOGY PROCEDURE NOTE Gastric Tube General Information Procedure Start Time/Medication Administration: 09/05/2023 8:10 AM Patient location during procedure: OR Timeout Performed Pre-procedure: timeout performed Consent Obtained: Yes Patient identity confirmed: arm band, care team physician and patient Indication: gastric decompression Staffing WATER SOFTENER INSTALLER: Elmer Willis APRN.CRNA Performed by: ESVIN Procedure Details Type: Nasogastric tube Cortrak monitor used: No Size: 18 Fr cm Distance Advanced: 60 cm Initial Auscultation Appears Confirmatory: No Successful Placement: yes Post-Procedure Details SIGNATURE: Elmer Willis APRN.CRNA PATIENT NAME: Kris Cox DATE: September 05, 2023 TIME: 8:55 AM CSN: [id number] NoteHNO ID: [id number] Author: Elmer Willis APRN.ESVIN Service: ? Author Type: Nurse Ball Mill Mixer Type: Anesthesia Procedure Notes Filed: 09/05/2023 8:55 AM Note Text: ANESTHESIOLOGY PROCEDURE NOTE PIV General Information Procedure Start Time/Medication Administration: 09/05/2023 8:10 AM Patient Location: OR Staffing CAA: Nimeh, Kasey, AA Performed by: CAA Preparation Sterility Preparation: hand hygiene performed prior to procedure, surgical cap used, mask used, skin prep agent completely dried prior to procedure Site Prep: Chloraprep Procedure Details Indication: need for IV access Needle Size/Type: 16 gauge angiocath Orientation: Right Location: Hand Imaging Guidance Used: No SIGNATURE: Elmer Willis APRN.CRNA PATIENT NAME: Kris Cox DATE: September 05, 2023 TIME: 8:54 AM CSN: [id number] NoteHNO ID: [id number] Author: Elmer Willis APRN.CRNA Service: ? Author Type: Nurse Ball Mill Mixer Type: Anesthesia Procedure Notes Filed: 09/05/2023 8:54 AM Note Text: ANESTHESIOLOGY PROCEDURE NOTE A-Line General Information Procedure Start Time/Medication Administration: 09/05/2023 7:55 AM Patient location during procedure: OR Timeout Performed Pre-procedure: timeout performed Indications: continuous blood pressure monitoring Staffing WATER SOFTENER INSTALLER: Elmer Willis APRN.WATER SOFTENER INSTALLER Performed by: WATER SOFTENER INSTALLER Preparation Sterility Preparation: hand hygiene performed prior to procedure, sterile gloves, drapes, and procedure tray, surgical cap used, mask used, sterile drape used during line insertion, skin prep agent completely dried prior to procedure Site Prep: Chloraprep Procedure Details Catheter Type: arterial line Catheter Size: 20 G Catheter Length: 5.25 in Micropuncture Kit Used: No Guidewire Used: Yes Guidewire Removed Intact: Yes Laterality: left Site: radial artery Ultrasound Guided: No Line Secured: occlusive biodressing Comments Skin localized with 1% lido SIGNATURE: Elmer Willis APRN.CRNA PATIENT NAME: Kris Cox DATE: September 05, 2023 TIME: 8:53 AM CSN: [id number] NoteHNO ID: [id number] Author: Elmer Willis APRN.ESVIN Service: ? Author Type: Nurse Ball Mill Mixer Type: Anesthesia Procedure Notes Filed: 09/05/2023 8:52 AM Note Text: ANESTHESIOLOGY PROCEDURE NOTE Airway General Information Procedure Start Time/Medication Administration: 09/05/2023 8:12 AM Patient location during procedure: OR Timeout Performed Pre-procedure: timeout performed Consent Obtained: Yes Patient identity confirmed: arm band, care team physician and patient Staffing Anesthesiologist: Genoveva Church MD WATER SOFTENER INSTALLER: Elmer Willis APRN.WATER SOFTENER INSTALLER Performed by: anesthesiologist and WATER SOFTENER INSTALLER Indications and Patient Condition Indications for airway management: anesthesia Preoxygenated: yes anesthesia circuit Patient position: sniffing Method: asleep Cricoid Pressure: No Manual In-Line Stabilization: No Difficult Mask: No Final Airway Details Final airway type: endotracheal airway Final Endotracheal Airway: ETT Cuffed: yes Successful intubation technique: video laryngoscopy Devices used: ProtoGeo Endotracheal tube insertion site: oral Blade: Gera Blade size: #4 ETT size (mm): 8.0 Measured from: gums Measurement (cm): 21 Placement verified by: chest auscultation and capnometry Cormack-Lehane Classification: grade I - full view of glottis Number of attempts at approach: 1 Failed airway: no Airway not difficult Comments Performed by INPATIENT AUDITOR SIGNATURE: Elmer Willis APRN.WATER SOFTENER INSTALLER PATIENT NAME: Kris Cox DATE: September 05, 2023 TIME: 8:48 AM CSN: [id number] NoteHNO ID: [id number] Author: Elmer Willis APRN.CRNA Service: Anesthesiology Author Type: Nurse Ball Mill Mixer Type: Anesthesia Procedure Notes Filed: 09/05/2023 9:11 AM Note Text: ANESTHESIOLOGY PROCEDURE NOTE CVL General Information Procedure Start Time/Medication Administration: 09/05/2023 8:12 AM Procedure End Time: 09/05/2023 8:20 AM Patient location during procedure: OR Timeout Performed Pre-procedure: timeout performed Consent Obtained: Yes Patient identity confirmed: arm band Indication: central venous access and CVP monitoring Staffing Anesthesiologist: Genoveva Church MD Performed by: anesthesiologist Preparation Sterility Preparation: hand hygiene performed prior to procedure, sterile gloves, drapes, and procedure tray, gown used during line insertion, surgical cap used, mask used, sterile drape used during line insertion, skin prep agent completely dried prior to procedure Site Prep: Chlorhexidine Procedure Details Patient Position: Supine Laterality: Right Site: Internal jugular Catheter Type: MAC Catheter Size: 9 Fr Catheter Length (cm): 10 Number of Lumens: Double lumen Ultrasound Guided: Yes Image in Chart: Yes Sites: potential access sites evaluated, selected vessel patent, concurrent real time ultrasound visualization of vascular needle entry Vessel: target vessel identified and guidewire advanced into vessel Needle advanced into vein and blood aspirated: Yes Transduced prior to dilation: Yes Number of Attempts: 1 Number of Guidewires Used: 1 Number of Guidewires Removed Intact: 1 Chest X-ray Ordered: No Post Insertion Ports and Catheter: all ports aspirate easily, all ports flush easily and ports flushed with saline Events Events: patient tolerated procedure well with no complications SIGNATURE: Genoveva Church MD PATIENT NAME: Kris Cox DATE: September 05, 2023 TIME: 8:32 AM CSN: [id number] NoteHNO ID: [id number] Author: Conner Puente DO Service: Pain Management Author Type: Resident Type: Anesthesia Procedure Notes Filed: 09/05/2023 8:23 AM Note Text: Attestation signed by Livan Barraza DO at 09/05/2023 9:29 AM Attending Note TEACHING PHYSICIAN NOTE OF PERSONAL INVOLVEMENT IN CARE: I have personally seen and examined the patient and performed the medical decision-making components. I have reviewed the resident's documentation and verified the findings in the note as written. Any additions or changes have been made by myself. Signature: Livan Barraza DO Date: 09/05/2023 Time: 9:29 AM ANESTHESIOLOGY PROCEDURE NOTE Epidural Block General Information Procedure Start Time/Medication Administration: 09/05/2023 7:07 AM Patient location during procedure: pre-op Informed Consent Consent Obtained: Written [place] Protocol A moment to CARE was completed. SIGN IN Sign in communication not applicable due to emergent procedure. Personnel directly involved with the procedure wore the appropriate PPE. Patient/Surrogate Stated/Verified: Patient name, Date of , Relevant allergies and Intended procedure TIME OUT Intended patient and procedure match the source document(s). Consent documented and matches the intended procedure. Relevant labs, photos, and/or imaging studies have been reviewed. Correct side/site marked and visible. Medications required for procedure verified. Fire risk assessed and interventions discussed. Reason for block: post-op pain management/at surgeon's request Staffing Anesthesiologist: Livan Barraza DO Resident: Conner Puente DO Performed by: resident and anesthesiologist Preparation Sterility Preparation: hand hygiene performed prior to procedure, sterile gloves, drapes, and procedure tray, surgical cap used, mask used, sterile drape used during line insertion, skin prep agent completely dried prior to procedure Site Prep: Chloraprep Procedure Details Patient position: sitting Patient monitoring: Pulse OX, EKG and NIBP Approach: midline Injection technique: KERRI saline Region: thoracic Estimated Interspace: 9-10 Number of Attempts: 3 Needle and Epidural Catheter Needle type: Tuohy Needle gauge: 18 G Needle length: 3.5 in Needle insertion depth: 6 cm Catheter Catheter type: side hole Catheter size: 19 G Catheter at skin depth: 11 cmTest Dose Response: negative Assessment Events: tolerated well without discomfort SIGN OUT All instruments, equipment, possible retained foreign bodies accounted for. Comments Test dose at 7:26, negative SIGNATURE: Conner Puente DO PATIENT NAME: Kris Cox DATE: September 05, 2023 TIME: 8:14 AM CSN: [id number] NoteHNO ID: [id number] Author: Kayla Colon, ELVIS Service: Nursing Author Type: Registered Nurse Type: Nursing Progress Note Filed: 09/05/2023 7:44 AM Note Text: [id number]: Thoracic epidural with Dr. Barraza. Patient tolerated well and VS stable.[facility] [id number] Miscellaneous Notes* Telephone Encounter - Fatmata Cardoza - 08/28/2023 8:14 AM EST Patient returned call and confirmed date of surgery, 10/10/23, PAT appt on 09/24, and procedure instructions. * Telephone Encounter - Mayda Ramírez - 08/27/2023 10:48 AM EST Left message with date of AAA repair and sent instructions via [employer]. [facility] Miscellaneous Notes* Telephone Encounter - Shira Noel LPN - 08/24/2023 2:45 PM EST Patient phones requesting refills as follows: Requested Prescriptions Pending Prescriptions Disp Refills lisinopril (ZESTRIL) 40 mg tablet 90 tablet 1 Sig: Take 1 tablet by mouth once daily. JHONATAN 07/10/23 NOV 01/09/24 Please review and advise. Shira Noel LPN documented in [facility] History of Present illness Narrative* Naif Graves MD - 08/24/2023 1:35 PM EST Images from the original note were not included. Heart , Vascular and Thoracic [place] DEPARTMENT OF VASCULAR SURGERY OUTPATIENT VISIT DATE August 24, 2023 OUTPATIENT VISIT TYPE ESTABLISHED SERVICE DATE: 08/24/2023 SERVICE TIME: 1:35 PM PRIMARY CARE PHYSICIAN: Samuel Foy MD HISTORY OF PRESENT ILLNESS: Mr. Cox is a 73 year old male who presents today for a vascular surgery follow-up visit AAA. 73 y/o M w/ hx of GERD, duodenal stricture, HTN, HLD, and an asymptomatic AAA who presents for follow-up of his AAA. Since he was last seen, he underwent NM cardiac stress testing without issue. Denies any abdominal or back pain. PAST MEDICAL HISTORY Diagnosis Date AAA (abdominal aortic aneurysm) (HCC) Dr. Araujo- Multani's esophagus 2009 Needs repeat EGD 04/2023. CAD (coronary artery disease) 2003 stress test abnormal Diverticulosis Duodenal stricture Friend Duodenitis without mention of hemorrhage Erectile dysfunction Esophagitis, unspecified Gout History of colonoscopy HTN (hypertension) Hyperlipidemia Impaired fasting glucose Overweight (BMI 25.0-29.9) Vertigo PAST SURGICAL HISTORY Procedure Laterality Date CARDIAC CATH 04/30/2007 COLONOSCOPY FLX DX W/COLLJ SPEC WHEN PFRMD 10/25/2012 few diverticula - 10 year follow up COLONOSCOPY FLX DX W/COLLJ SPEC WHEN PFRMD 07/28/2020 Colonoscopy EGD 12/03/2009 dx barretts esophagus EGD 06/10/2009 h-pylori negative EGD BALLOON DILATION ESOPHAGUS <30 MM DIAM 01/30/2011 EGD TRANSORAL BIOPSY SINGLE/MULTIPLE 10/25/2012 duodenitis, gastric ulcer, gastritis, small hiatal hernia, multani's esophagitis EGD W/O [facility] SPEC VARICIES INJ 12/16/2021 ESOPHAGOGASTRODUODENOSCOPY TRANSORAL DIAGNOSTIC 07/28/2020 EGD EXPLORATORY SHOULDER SURGERY 1965 repair dislcoation. left FRACTURE SURGERY Left 1961 Fractured collar bone with surgery INCISE FINGER TENDON SHEATH Right 07/19/2023 Right index trigger finger release PAST SURGICAL HISTORY OF right and left meniscus surgeries of knee PAST SURGICAL HISTORY OF 2008 right middle finger trigger repair PAST SURGICAL HISTORY OF 08/02/2012 right ring trigger finger release PAST SURGICAL HISTORY OF 01/09/2014 Left 3rd finger trigger release TONSILLECTOMY HX SOCIAL HISTORY Social History Tobacco Use Smoking status: Former Packs/day: 1.00 Years: 15.00 Additional pack years: 0.00 Total pack years: 15.00 Types: Cigarettes Quit date: 06/08/2002 Years since quittin.2 Smokeless tobacco: Never Vaping Use Vaping Use: Never used Substance Use Topics Alcohol use: Yes Comment: very seldom, not even 1 drink per month Drug use: No MEDICATIONS: pantoprazole DR (PROTONIX) 40 mg tablet Take 1 tablet by mouth two times a day. Take on empty stomach, 1/2 hr before meal. metoprolol succinate ER (TOPROL XL) 100 mg Take 1 tablet by mouth once daily. amLODIPine (NORVASC) 5 mg tablet Take 1 tablet by mouth once daily. colchicine 0.6 mg tablet Take 2 tabs by mouth, followed by 1 tab one hour later for gout flare. Mayrepeat in 1 week. atorvastatin (LIPITOR) 20 mg tablet Take 1 tablet by mouth once daily. For cholesterol allopurinol (ZYLOPRIM) 100 mg tablet Take 2 tablets by mouth once daily. For gout. amLODIPine (NORVASC) 2.5 mg tablet Take one tablet daily along with 5 mg tablet lisinopril (ZESTRIL) 40 mg tablet Take 1 tablet by mouth once daily. naproxen (NAPROSYN) 500 mg tablet Take 1 tablet by mouth twice daily as needed (gout flare). Take with food. meclizine (ANTIVERT) 25 mg tab Take 1 tablet by mouth twice daily as needed. TAKE 1 TABLET BY MOUTHAS NEEDED. USES FOR TRAVELING ONLY. ALLERGIES: ALLERGIES No Known Allergies PHYSICAL EXAM: BP 127/79 (BP Site: Right Arm, BP Position: Sitting) Pulse (!) 50 General: Alert and oriented, No acute distress Integumentary: Normal color, no rash, no lesions. HEENT: Anicteric sclera Cardiovascular: Bradycardic Lungs: Non-labored Abdomen: Soft, non-tender, no rigidity. Extremities: No peripheral edema Neurological: Normal cognition and motor skills. Diagnostic tests reviewed for today's visit: 08/21/2023 - [place] Cardiac Stress Test CONCLUSIONS: 1. SPECT Perfusion Study: Normal. 2. There is no scintigraphic evidence for inducible ischemia. 3. No evidence of scarred myocardium. 4. Left ventricle is normal in size. The left ventricle systolic function is normal. 5. Right ventricle is normal in size. 6. This is a low risk scan. Gated Stress IR:3D Gated Rest IR:3D LVEF % 70 69 IMPRESSION: Mr. Cox is a 73 year old male w/ an asymptomatic 5.5cm infrarenal AAA. Given the mural thrombusin his proximal infrarenal aorta and low risk cardiac stress test, I would recommend elective open repair of his AAA PLAN and RECOMMENDATIONS: - Recommend open AAA repair, consented - Continue ASA 81mg daily and statin Medical Decision Making: Problems: Low: Stable chronic illness Data: Unique test result(s) reviewed: 1 Risk: Moderate: Drug management High: Decision on elective major surgery w/ risk factors Medical Decision Making Level: 3 - Low SIGNATURE: Naif Graves MD PATIENT NAME: Kris Cox DATE: August 25, 2023 TIME: 11:17 AM documented in this encounter[facility]23 Miscellaneous Notes* Telephone Encounter - Avelina Helm LPN - 08/21/2023 11:22 AM EST Patient phones requesting refills as follows: Requested Prescriptions Pending Prescriptions Disp Refills pantoprazole DR (PROTONIX) 40 mg tablet 180 tablet 1 Sig: Take 1 tablet by mouth two times a day. Take on empty stomach, 1/2 hr before meal. JHONATAN 07/10/2023 NOV 01/09/2024 Please review and advise. Avelina Helm LPN documented in this encounter[facility]14-[facility]23 NoteHNO ID: [id number] Author: Michael Stein RT(R) Service: Nuclear Medicine Author Type: Technologist Type: Progress Notes Filed: 08/21/2023 9:30 AM Note Text: RADIOLOGY SERVICE PROGRESS NOTE SERVICE DATE: 08/21/2023 SERVICE TIME: 9:28 AM PATIENT IDENTITY VERIFICATION COMPLETED USING TWO (2) STANDARD IDENTIFIERS: Name and Date of confirmed by patient verbally FALL SCREENING: Has the patient had 2 falls in the last year or 1 fall with injury or currently using an Ambulatory Assistive Device (Walker, Cane, Wheelchair, Crutches, etc.)? No PATIENT GENDER DATA: .male ALLERGIES: Reviewed and unchanged MEDICATIONS REVIEWED: Not applicable PATIENT RELEVANT IMPLANT DATA REVIEWED: Not Applicable CREATININE: Creatinine Date Value Ref Range Status 07/10/2023 0.98 0.73 - 1.22 mg/dL Final 02/15/2023 0.94 0.73 - 1.22 mg/dL Final 11/20/2022 0.88 0.73 - 1.22 mg/dL Final Estimated Glomerular Filtration Rate Date Value Ref Range Status 07/10/2023 81 >=60 mL/min/1.73m? Final Comment: Estimated Glomerular Filtration Rate (eGFR) is calculated using the 2020 CKD-EPI creatinine equation. This equation utilizes serum creatinine, sex, and age as parameters. The creatinine assay has traceable calibration to isotope dilution-mass spectrometry. Refer to KDIGO guidelines for clinical interpretation. In patients with unstable renal function, e.g. those with acute kidney injury, the eGFR may not accurately reflect actual GFR. eGFR- Date Value Ref Range Status 11/04/2021 >60 Final P.O.C.T. RESULTS: N/A August 21, [address] PERFORMED: No IV SITE: Ambulatory: A peripheral IV was started in the Right antecubital site with a Angio cath: 22 gauge. POST EXAM PIV STATUS: Discontinued PROCEDURE TYPE: NM Stress: 12.93 mCi [id number] was administered IV for Rest Imaging at 08:24 by JDANISH. 34.3 mCi [id number] was administered IV for Stress Imaging at 09:10 by JDANISH. PATIENT DISCHARGED TO: Ambulatory patient, left [place] department area. A Diagnostic radioactive procedure has taken place, with no further precautions necessary other than routine body substance precautions. More information regarding radiation safety can be found using this link: [email or web address] SIGNATURE: RT Chemo(Candice) PATIENT NAME: Kris Cox DATE: August 21, 2023 TIME: 9:28 AM [phone] History of Present illness Narrative* Michael Stein RT(R) - 08/21/2023 8:45 AM EST RADIOLOGY SERVICE PROGRESS NOTE SERVICE DATE: 08/21/2023 SERVICE TIME: 9:28 AM PATIENT IDENTITY VERIFICATION COMPLETED USING TWO (2) STANDARD IDENTIFIERS: Name and Date of confirmed by patient verbally FALL SCREENING: Has the patient had 2 falls in the last year or 1 fall with injury or currently using an Ambulatory Assistive Device (Walker, Cane, Wheelchair, Crutches, etc.)? No PATIENT GENDER DATA: .male ALLERGIES: Reviewed and unchanged MEDICATIONS REVIEWED: Not applicable PATIENT RELEVANT IMPLANT DATA REVIEWED: Not Applicable CREATININE: Creatinine Date Value Ref Range Status 07/10/2023 0.98 0.73 - 1.22 mg/dL Final 02/15/2023 0.94 0.73 - 1.22 mg/dL Final 11/20/2022 0.88 0.73 - 1.22 mg/dL Final Estimated Glomerular Filtration Rate Date Value Ref Range Status 07/10/2023 81 >=60 mL/min/1.73m Final Comment: Estimated Glomerular Filtration Rate (eGFR) is calculated using the 2020 CKD-EPI creatinine equation. This equation utilizes serum creatinine, sex, and age as parameters. The creatinine assay has traceable calibration to isotope dilution- mass spectrometry. Refer to KDIGO guidelines for clinical interpretation. In patients with unstable renal function, e.g. those with acute kidney injury, the eGFRmay not accurately reflect actual GFR. eGFR- Date Value Ref Range Status 11/04/2021 >60 Final P.O.C.T. RESULTS: N/A August 21, [address] PERFORMED: No IV SITE: Ambulatory: A peripheral IV was started in the Right antecubital site with a Angio cath: 22 gauge. POST EXAM PIV STATUS: Discontinued PROCEDURE TYPE: [place] Stress: 12.93 mCi [id number] [facility] mCi [id number] was administered IV for Stress Imaging at 09:10 by [facility]. PATIENT DISCHARGED TO: Ambulatory patient, left [place] department area. A Diagnostic radioactive procedure has taken place, with no further precautions necessary other than routine body substance precautions. More information regarding radiation safety can be found usingthis link: [email or web address] SIGNATURE: RT Chemo(Candice) PATIENT NAME: Kris Cox DATE: August 21, 2023 TIME: 9:28 AM PAGER/CONTACT #: documented in this encounterMer[facility] History of Present illness Narrative* Naif Graves MD - 08/17/2023 10:48 AM EST Images from the original note were not included. Heart , Vascular and Thoracic [place] DEPARTMENT OF VASCULAR SURGERY OUTPATIENT VISIT DATE August 17, 2023 OUTPATIENT VISIT TYPE ESTABLISHED SERVICE DATE: 08/17/2023 SERVICE TIME: 11:06 AM PRIMARY CARE PHYSICIAN: Samuel Foy MD HISTORY OF PRESENT ILLNESS: Mr. Cox is a 73 year old male who presents today for a vascular surgery follow-up visit of his AAA. 73 y/o M w/ hx of GERD, duodenal stricture, HTN, HLD, and an asymptomatic AAA who presents for evaluation of his AAA. Pt last seen in February 2023 at which time he had an asymptomatic 5.4cm infrarenal AAA. Since he was last seen, no abdominal or new back pain. Chronic low back pain. PAST MEDICAL HISTORY Diagnosis Date AAA (abdominal aortic aneurysm) (HCC) Dr. Araujo- Multani's esophagus 2009 Needs repeat EGD 04/2023. CAD (coronary artery disease) 2002 stress test abnormal Diverticulosis Duodenal stricture Dr. Moran Duodenitis without mention of hemorrhage Erectile dysfunction Esophagitis, unspecified Gout History of colonoscopy HTN (hypertension) Hyperlipidemia Impaired fasting glucose Overweight (BMI 25.0-29.9) Vertigo PAST SURGICAL HISTORY Procedure Laterality Date CARDIAC CATH 04/30/2007 COLONOSCOPY FLX DX W/COLLJ SPEC WHEN PFRMD 10/25/2012 few diverticula - 10 year follow up COLONOSCOPY FLX DX W/COLLJ SPEC WHEN PFRMD 07/28/2020 Colonoscopy EGD 12/03/2009 dx barretts esophagus EGD 06/10/2009 h-pylori negative EGD BALLOON DILATION ESOPHAGUS <30 MM DIAM 01/30/2011 EGD TRANSORAL BIOPSY SINGLE/MULTIPLE 10/25/2012 duodenitis, gastric ulcer, gastritis, small hiatal hernia, multani's esophagitis EGD W/O [facility] SPEC VARICIES INJ 12/16/2021 ESOPHAGOGASTRODUODENOSCOPY TRANSORAL DIAGNOSTIC 07/28/2020 EGD EXPLORATORY SHOULDER SURGERY 1965 repair dislcoation. left FRACTURE SURGERY Left 1961 Fractured collar bone with surgery INCISE FINGER TENDON SHEATH Right 07/19/2023 Right index trigger finger release PAST SURGICAL HISTORY OF right and left meniscus surgeries of knee PAST SURGICAL HISTORY OF 2008 right middle finger trigger repair PAST SURGICAL HISTORY OF 08/02/2012 right ring trigger finger release PAST SURGICAL HISTORY OF 01/09/2014 Left 3rd finger trigger release TONSILLECTOMY HX SOCIAL HISTORY Social History Tobacco Use Smoking status: Former Packs/day: 1.00 Years: 15.00 Additional pack years: 0.00 Total pack years: 15.00 Types: Cigarettes Quit date: 06/08/2002 Years since quittin.2 Smokeless tobacco: Never Vaping Use Vaping Use: Never used Substance Use Topics Alcohol use: Yes Comment: very seldom, not even 1 drink per month Drug use: No MEDICATIONS: metoprolol succinate ER (TOPROL XL) 100 mg Take 1 tablet by mouth once daily. amLODIPine (NORVASC) 5 mg tablet Take 1 tablet by mouth once daily. colchicine 0.6 mg tablet Take 2 tabs by mouth, followed by 1 tab one hour later for gout flare. Mayrepeat in 1 week. atorvastatin (LIPITOR) 20 mg tablet Take 1 tablet by mouth once daily. For cholesterol allopurinol (ZYLOPRIM) 100 mg tablet Take 2 tablets by mouth once daily. For gout. amLODIPine (NORVASC) 2.5 mg tablet Take one tablet daily along with 5 mg tablet lisinopril (ZESTRIL) 40 mg tablet Take 1 tablet by mouth once daily. pantoprazole DR (PROTONIX) 40 mg tablet Take 1 tablet by mouth twice daily. Take on empty stomach, 1/2 hr before meal. naproxen (NAPROSYN) 500 mg tablet Take 1 tablet by mouth twice daily as needed (gout flare). Take with food. meclizine (ANTIVERT) 25 mg tab Take 1 tablet by mouth twice daily as needed. TAKE 1 TABLET BY MOUTHAS NEEDED. USES FOR TRAVELING ONLY. ALLERGIES: ALLERGIES No Known Allergies PHYSICAL EXAM: Ht 170.2 cm (5' 7) Wt 76.7 kg (169 lb) BMI 26.47 kg/m General: Alert and oriented, No acute distress Integumentary: Normal color, no rash, no lesions. HEENT: Anicteric sclera Cardiovascular: Regular rate Abdomen: Soft, non-tender, no rigidity., no tenderness to palpation over abdominal pulsatile mass Extremities: No deformity, no edema or tenderness, no joint swelling or clubbing. Neurological: Normal cognition and motor skills. Vascular: Radial Pulse Right: Normal - Left: Normal Femoral Pulse Right: Normal - Left: Normal Diagnostic tests reviewed for today's visit: 08/13/2023 - CTA Abdomen/Pelvis w/o IV contrast - On my review, 5.5cm infrarenal AAA with aortic mural thrombus in the proximal infrarenal and juxtarenal aorta IMPRESSION: Mr. Cox is a 73 year old male w/ an asymptomatic 5.5cm infrarenal AAA. Given the mural thrombusin his proximal infrarenal aorta, he may benefit from open repair. PLAN and RECOMMENDATIONS: - Recommend [place] cardiac stress test for risk stratification - Recommend AAA repair, type of repair pending cardiac risk stratification - Follow-up after testing Medical Decision Making: Problems: Moderate: 1+ chronic illnesses with change Data: Unique test result(s) reviewed: 1 Unique test(s) ordered: 1 Risk: High: Decision on elective major surgery w/ risk factors Medical Decision Making Level: 4 - Moderate SIGNATURE: Naif Graves MD PATIENT NAME: Kris Cox DATE: August 18, 2023 TIME: 4:59 PM documented in this encounterMer[facility] History of Present illness Narrative* Reef Felicia Hernandez, RT(R) - 08/13/2023 10:00 AM EST Radiology Service Progress Note DATE OF SERVICE: August 13, 2023 TIME: 11:18 AM PATIENT IDENTITY VERIFICATION COMPLETED USING TWO (2) STANDARD IDENTIFIERS: Name and Date of confirmed by patient verbally. FALL SCREENING: Has the patient had 2 falls in the last year or 1 fall with injury or currently using an Ambulatory Assistive Device (Walker, Cane, Wheelchair, Crutches, etc.)? No PATIENT GENDER DATA: Male PATIENT RELEVANT IMPLANT DATA REVIEWED: Yes ALLERGIES: Reviewed and unchanged CONTRAST ALLERGY: NO. EXAM: CT -CONTRAST INDUCED NEPHROPATHY RISK FACTORS: Patient age > 60 years CREATININE: Creatinine Date Value Ref Range Status 07/10/2023 0.98 0.73 - 1.22 mg/dL Final 02/15/2023 0.94 0.73 - 1.22 mg/dL Final 11/20/2022 0.88 0.73 - 1.22 mg/dL Final Estimated Glomerular Filtration Rate Date Value Ref Range Status 07/10/2023 81 >=60 mL/min/1.73m Final Comment: Estimated Glomerular Filtration Rate (eGFR) is calculated using the 2020 CKD-EPI creatinine equation. This equation utilizes serum creatinine, sex, and age as parameters. The creatinine assay has traceable calibration to isotope dilution- mass spectrometry. Refer to KDIGO guidelines for clinical interpretation. In patients with unstable renal function, e.g. those with acute kidney injury, the eGFRmay not accurately reflect actual GFR. eGFR- Date Value Ref Range Status 11/04/2021 >60 Final P.O.C.T. RESULTS: POC done: Yes, See Lab Tab August 13, 2023 TREATMENT: N/A PERIPHERAL IV DATA: Ambulatory: A peripheral IV was started in the Left antecubital site with a Angio cath: 18 gauge. RADIOLOGY DEPARTMENT: CT; Exam(s) Completed: CTA Abdomen Pelvis SIGNATURE: RT Solo(R) PATIENT NAME: Kris Cox DATE: August 13, 2023 TIME: 11:18 AM documented in this encounterMercy Health St. [facility]10-23-[facility] History of Present illness Narrative* Mar Bright PA-C - 07/30/2023 9:27 AM EDT Mar Bright PA-C Department of Orthopaedics Orthopaedics [address] [facility] [address] Dept: [phone] Dept July 30, 2023 CHIEF COMPLAINT: Post Op of the Right Index Finger and 1 week 4 days post Right index trigger finger release. ASSESSMENT: M65.321 Trigger index finger of right hand (primary encounter diagnosis) SUMMARY/PLAN: Patient presents 1 week and 4 days status post right index finger trigger release. He is doing verywell, denies any pain but has quite a bit of stiffness at the knuckle. We discussed proper hand washing, no soaking of the operative hand. No heavy lifting, pushing or pulling with the operative hand, encourage gentle motion. We discussed scar massage. Follow up as planned. Exam: Incision sites well approximated without erythema or drainage, there is mild but appropriate edema around the incision, no ecchymosis. Patient is able to form a loose composite fist and extend the digit, no locking or catching, there is subjective stiffness. Imaging: Deferred today. Mr. Kris Cox was advised as to contrast therapies and/or to take analgesics/anti-inflammatories as needed and all contraindications were reviewed. Supporting Information Below: Medications: Current Outpatient Medications Medication Sig metoprolol succinate ER (TOPROL XL) 100 mg Take 1 tablet by mouth once daily. amLODIPine (NORVASC) 5 mg tablet Take 1 tablet by mouth once daily. colchicine 0.6 mg tablet Take 2 tabs by mouth, followed by 1 tab one hour later for gout flare. Mayrepeat in 1 week. atorvastatin (LIPITOR) 20 mg tablet Take 1 tablet by mouth once daily. For cholesterol allopurinol (ZYLOPRIM) 100 mg tablet Take 2 tablets by mouth once daily. For gout. amLODIPine (NORVASC) 2.5 mg tablet Take one tablet daily along with 5 mg tablet lisinopril (ZESTRIL) 40 mg tablet Take 1 tablet by mouth once daily. pantoprazole DR (PROTONIX) 40 mg tablet Take 1 tablet by mouth twice daily. Take on empty stomach, 1/2 hr before meal. naproxen (NAPROSYN) 500 mg tablet Take 1 tablet by mouth twice daily as needed (gout flare). Take with food. meclizine (ANTIVERT) 25 mg tab Take 1 tablet by mouth twice daily as needed. TAKE 1 TABLET BY MOUTHAS NEEDED. USES FOR TRAVELING ONLY. No current facility-administered medications for this visit. Allergies: Patient has no known allergies. This note was partially generated using [employer] voice recognition system, and there may be some incorrect words, spellings, and punctuation that were not noted in checking the note before saving. Mar Bright PA-C * Hina Goodman Ma - 07/30/2023 8:46 AM EDT Patient presents with: Right Index Finger - Post Op 1 week 4 days post Right index trigger finger release AMB ROOMING INTAKE FLOWSHEET DATA Patient denies any pain. The bottom suture came out on Sunday after his surgery. Other suture intact. No redness or drainage. documented in this encounterMercy [facility]10-16-2023 Miscellaneous Notes* Telephone Encounter - Delilah Andrade MA - 07/23/2023 9:17 AM EDT Patient has been identified by name and date of : Yes Requested Prescriptions Pending Prescriptions Disp Refills metoprolol succinate ER (TOPROL XL) 100 mg 90 tablet 1 Sig: Take 1 tablet by mouth once daily. RX INSTRUCTIONS: Patient aware RX will be sent to pharmacy. No need to notify patient. Patient last office visit: 07/10/23 Patient next office visit: 01/09/24 Delilah Andrade MA documented in this encounterMercy Health St. [facility]09-23-2023 Miscellaneous Notes* Telephone Encounter - Michael Valdez LPN - 06/30/2023 10:04 AM EDT Patient phones requesting refills as follows: Requested Prescriptions Pending Prescriptions Disp Refills amLODIPine (NORVASC) 5 mg tablet 90 tablet 1 Sig: Take 1 tablet by mouth once daily. JHONATAN 02/19/23 NOV 07/09/23 Please review and advise. Michale Valdez LPN documented [facility] this [facility]08-29-2023 Miscellaneous Notes* Telephone Encounter - Hina Goodman Ma - 06/05/2023 8:19 AM EDT Surgical request completed. Post op appointments scheduled and mailed to patient. * Telephone Encounter - Marlene Archibald - 06/04/2023 2:11 PM EDT Pt returned call. Confirmed Okay to schedule 07/19/23 in [place] instead of 07/26/23. * Telephone Encounter - Rex GarzaEmekaa - 06/04/2023 2:07 PM EDT Patient scheduled surgery for Right index trigger finger release on 07/26/23. ASC will not be available on that day. Need to change surgery date to 07-19-23. Left message for patient to call office to confirm new surgical date. documented in this encounterMercy [facility] St. [facility]08-28-2023 History of Present illness Narrative* Bo Davis MD - 06/04/2023 9:18 AM EDTAssociated Order(s): Additional Injections: R index A1 Post-Procedure Diagnose(s): Trigger index finger of right hand Bo Davis MD Department of Orthopaedics Orthopaedics [address] [place] [id number] Dept: [phone] Dept June 04, 2023 CHIEF COMPLAINT: Established Patient of the Right Index Finger (Trigger finger) HPI Patient presents with: Right Index Finger - Established Patient: Trigger finger He reports pain in the knuckle and base of finger. He takes naproxen for pain relief. AMB ROOMING INTAKE FLOWSHEET DATA Pain Pain Level: 4 Pain Location: Finger Description: Aching, Sharp Duration Amount of Time: 2 Duration Units: Months Frequency: Continuous Intervention/Comfort measure: Medication ASSESSMENT: M65.321 Trigger index finger of right hand (primary encounter diagnosis) PLAN: Pretty obvious triggering of the index finger. Like to try a cortisone injection first. We did review the risks, benefits, alternatives and potential complications involving both operative and operative care. If his injection does not fully correct the problem, he will proceed with surgical release probablysometime around July. Mr. Kris Cox was advised as to contrast therapies and/or to take analgesics/anti-inflammatories as needed and all contraindications were reviewed. OBJECTIVE: Mr. Kris Cox is a pleasant 73 year old in no apparent distress. Gen:There were no vitals taken for this visit. nl development, non obese, no deformities ENT: Normocephalic, normal hearing, moist mucosa CV: Pulses:Radial= 2+ and symmetric, capillary refill < 2 secs, no peripheral edema/varicosities Skin: no rash, bruising or lesions. Good turgor. Psych: cooperative and appropriate, alert and oriented x 3, good mood and affect. Musculoskeletal: Tender to palpation at the A1 tamika site of the right index finger with clicking but no active locking. Additional Injections: R index A1 for trigger finger Informed Consent Consent Obtained: Verbal [place] Protocol A moment to CARE was completed. SIGN IN Sign in communication not applicable due to emergent procedure. Personnel directly involved with the procedure wore the appropriate PPE. Special Equipment: N/A Patient/Surrogate Stated/Verified: Patient name, Date of , Relevant allergies and Intended procedure TIME OUT Intended patient and procedure match the source document(s). Consent documented and matches the intended procedure. Relevant labs, photos, and/or imaging studies have been reviewed. Correct side/site marked and visible. Medications required for procedure verified. No fire risk assessment and interventions applicable. No implant(s) inserted. 06/04/2023 9:49 AM The procedure site was prepped in the usual sterile fashion. Medications: 3 mg betamethasone acetate-betamethasone sodium phosphate 6 mg/mL Anesthetics: 0.5 mL lidocaine (PF) 10 mg/mL (1 %) Outcome: tolerated well, no immediate complications Post-injection instructions were reviewed with the patient and the patient voiced understanding of these instructions. SIGN OUT No instruments, equipment or retained foreign bodies applicable. Imaging: Deferred Supporting Subjective Information Below: Past Surgical History: PAST SURGICAL HISTORY Procedure Laterality Date CARDIAC CATH 04/30/2007 COLONOSCOPY FLX DX W/COLLJ SPEC WHEN PFRMD 10/25/2012 few diverticula - 10 year follow up COLONOSCOPY FLX DX W/COLLJ SPEC WHEN PFRMD 07/28/2020 Colonoscopy EGD 12/03/2009 dx barretts esophagus EGD 06/10/2009 h-pylori negative EGD BALLOON DILATION ESOPHAGUS <30 MM DIAM 01/30/2011 EGD TRANSORAL BIOPSY SINGLE/MULTIPLE 10/25/2012 duodenitis, gastric ulcer, gastritis, small hiatal hernia, multani's esophagitis EGD W/O [facility] SPEC VARICIES INJ 12/16/2021 ESOPHAGOGASTRODUODENOSCOPY TRANSORAL DIAGNOSTIC 07/28/2020 EGD EXPLORATORY SHOULDER SURGERY 1965 repair dislcoation. left FRACTURE SURGERY Left 1962 Fractured collar bone with surgery PAST SURGICAL HISTORY OF right and left meniscus surgeries of knee PAST SURGICAL HISTORY OF 2008 right middle finger trigger repair PAST SURGICAL HISTORY OF 08/02/2012 right ring trigger finger release PAST SURGICAL HISTORY OF 01/09/2014 Left 3rd finger trigger release TONSILLECTOMY HX Medications: Current Outpatient Medications Medication Sig colchicine 0.6 mg tablet Take 2 tabs by mouth, followed by 1 tab one hour later for gout flare. Mayrepeat in 1 week. atorvastatin (LIPITOR) 20 mg tablet Take 1 tablet by mouth once daily. For cholesterol allopurinol (ZYLOPRIM) 100 mg tablet Take 2 tablets by mouth once daily. For gout. metoprolol succinate ER (TOPROL XL) 100 mg Take 1 tablet by mouth once daily. amLODIPine (NORVASC) 2.5 mg tablet Take one tablet daily along with 5 mg tablet lisinopril (ZESTRIL) 40 mg tablet Take 1 tablet by mouth once daily. pantoprazole DR (PROTONIX) 40 mg tablet Take 1 tablet by mouth twice daily. Take on empty stomach, 1/2 hr before meal. amLODIPine (NORVASC) 5 mg tablet Take 1 tablet by mouth once daily. naproxen (NAPROSYN) 500 mg tablet Take 1 tablet by mouth twice daily as needed (gout flare). Take with food. meclizine (ANTIVERT) 25 mg tab Take 1 tablet by mouth twice daily as needed. TAKE 1 TABLET BY MOUTHAS NEEDED. USES FOR TRAVELING ONLY. No current facility-administered medications for this visit. Allergies: Patient has no known allergies. ROS: General (negative for fatigue, malaise, weight loss/gain) HEENT (negative for headache, earache, recent vision changes, sinus pain, sore throat) Respiratory (no recent shortness of breath, hemoptysis) CV (negative for chest tightness, palpitations) Musculoskeletal (see HPI) Psych (no depression, anxiety) Bo Davis MD documented in this encounterMercy Health St. [facility]08-23-2023 Miscellaneous Notes* Telephone Encounter - Shira Olmedo JANEE - 05/30/2023 12:32 PM EDT Patient requests via MyChart refills as follows: Requested Prescriptions Pending Prescriptions Disp Refills colchicine 0.6 mg tablet 6 tablet 0 Sig: Take 2 tabs by mouth, followed by 1 tab one hour later for gout flare. May repeat in 1 week. JHONATAN: 02/16/23 NOV: 07/09/23 Last Refill: 12/11/22 #6 0 refills Shira Olmedo LPN documented in this encounterMercy Health St. [facility]07-24-2023 Miscellaneous Notes* Telephone Encounter - Delilah Andrade MA - 04/30/2023 10:06 AM EDT Patient has been identified by name and date of : Yes Requested Prescriptions Pending Prescriptions Disp Refills allopurinol (ZYLOPRIM) 100 mg tablet 180 tablet 1 Sig: Take 2 tablets by mouth once daily. For gout. RX INSTRUCTIONS: Patient aware RX will be sent to pharmacy. No need to notify patient. Patient last office visit: 02/19/23 Patient next office visit: 07/09/23 Delilah Andrade MA documented in this encounterMercy [facility]. [facility]07-17-2023 Miscellaneous Notes* Telephone Encounter - Lacey Webb Ma - 04/23/2023 8:56 AM EDT Last office visit: 02/19/23 F/u scheduled: 07/09/23 Lacey Webb Ma documented in this encounterMercy [facility] St. [facility]05-31-2023 Miscellaneous Notes* Telephone Encounter - Gwendolyn Coleman Ma - 03/07/2023 2:19 PM EDT Patient last visit with PCP 12/19/22 Follow up appointment scheduled 07/02/23 Gwendolyn Coleman Ma documented in this encounterMer[facility]. [facility]05-16-2023 Miscellaneous Notes* Telephone Encounter - Krish Sher LPN - 02/20/2023 7:42 AM EDT Patient has been identified by name and date of : Yes, Provider Dr. Foy Date 02/20/23 Time 7:55 am Patient phones for refill(s): Requested Prescriptions Pending Prescriptions Disp Refills pantoprazole DR (PROTONIX) 40 mg tablet 180 tablet 1 Sig: Take 1 tablet by mouth twice daily. Take on empty stomach, 1/2 hr before meal. Date of last office visit in primary care: 02/19/23 next apt 07/02/23 Last 2 Encounter Wt Readings: Date: Wt: 02/19/2023 79.2 kg (174 lb 9.6 oz) 12/19/2022 78.5 kg (173 lb) Previous labs/tests for medication: Not applicable Thank you. Krish Sher LPN documented in this encounterMercy Health St. [facility]05-15-2023 History of Present illness Narrative* Melanie Livingston APRN.INESSA - 02/19/2023 9:30 AM EDT Patient here for appointment, however he is unsure why. Reports he got a notice on my chart he needed appointment. Patient seen for routine appointment on 12/19/2022. Advised at that time to follow-up in six months. Patient denies any health issues or concerns today. No need for office visit so will not bill for this. Melanie Livingston APRN.CNP documented in this encounterMercy Health St. [facility]05-01-2023 Miscellaneous Notes* Telephone Encounter - Carleen Mills LPN - 02/05/2023 10:29 AM EDT Patient phones requesting refills as follows: Requested Prescriptions Pending Prescriptions Disp Refills allopurinol (ZYLOPRIM) 100 mg tablet 180 tablet 1 Sig: Take 2 tablets by mouth once daily. For gout. JHONATAN-12/19/22 Labs-12/19/22 NOV-02/19/23 med filled 08/04/22 Please review and advise. Carleen Mills LPN documented in this [facility]05-01-2023 Miscellaneous Notes* Telephone Encounter - Carleen Mills LPN - 02/05/2023 9:50 AM EDT Patient phones requesting refills as follows: Requested Prescriptions Pending Prescriptions Disp Refills atorvastatin (LIPITOR) 20 mg tablet 90 tablet 0 Sig: Take 1 tablet by mouth once daily. For cholesterol JHONATAN-12/19/22 Labs-12/19/22Aug-02/19/23 med filled 11/13/22 Please review and advise. Carleen Mills LPN documented in this [facility]04-17-2023 Miscellaneous Notes* Telephone Encounter - Delilah Andrade MA - 01/22/2023 12:44 PM EDT Patient has been identified by name and date of : Yes Requested Prescriptions Pending Prescriptions Disp Refills metoprolol succinate ER (TOPROL XL) 100 mg 90 tablet 1 Sig: Take 1 tablet by mouth once daily. RX INSTRUCTIONS: Patient aware RX will be sent to pharmacy. No need to notify patient. Patient last office visit: 12/19/22 Patient next office visit: 06/25/23 Delilah Andrade MA documented in this [facility]03-20-2023 Miscellaneous Notes* Telephone Encounter - Avelina Helm LPN - 12/25/2022 12:40 PM EDT Patient phones requesting refills as follows: Requested Prescriptions Pending Prescriptions Disp Refills amLODIPine (NORVASC) 5 mg tablet 90 tablet 1 Sig: Take 1 tablet by mouth once daily. JHONATAN 12/19/2022 NOV 06/25/2023 Please review and advise. Avelina Helm LPN [facility] Miscellaneous Notes* Telephone Encounter - Carleen Mills LPN - 12/20/2022 1:18 PM EDT TC to pt. Left a detailed message on a secure line with updates. Carleen Mills LPN * Telephone Encounter - Melanie Livingston APRN.CNP - 12/20/2022 1:12 PM EDT Please call patient and let him know his uric acid level is in normal range. Continue allopurinol. Melanie Livingston APRN.CNP documented in this [facility] History of Present illness Narrative* Melanie Livingston APRN.CNP - 12/19/2022 1:45 PM EDT 12/19/2022 Patient presents with: Recheck SUBJECTIVE: This is a 72 year old that is here today for Above Complaints. Since last office visit has been in good health without ER visits or hospitalizations HYPERLIPIDEMIA: Patient is taking medications: Yes. Patient is watching diet: Yes. Patient denies myalgias: No. Patient denies gi upset: No HTN: Patient is compliant with meds Yes Monitors bp at home: No. Denies side effects: Yes. Chest pain: No. Dyspnea: No. Edema: No. Palpitations: No. Syncope: No. Headache: No. Dizziness: No. GOUT: reports a few recent flares. Taking allopurinol as prescribed. Hx of CAD: Does not follow with cardiology. Denies SOB, dyspnea, chest pain, palpitations or leg edema Follows with vascular surgery for hx of AAA. Last appointment on 08/11/2022. Recommend follow-up in6 months. Denies abdominal pain. Has chronic back pain improved since taking OTC HEMP gummies PAST MEDICAL HISTORY Diagnosis Date AAA (abdominal aortic aneurysm) Dr. Araujo- Multani's esophagus 2009 Needs repeat EGD 04/2023. CAD (coronary artery disease) 2002 stress test abnormal Diverticulosis Duodenal stricture Friend Duodenitis without mention of hemorrhage Erectile dysfunction Esophagitis, unspecified Gout History of colonoscopy HTN (hypertension) Hyperlipidemia Impaired fasting glucose Overweight (BMI 25.0-29.9) Vertigo ALLERGIES Patient has no known allergies. MEDICATIONS Current Outpatient Medications Medication Sig colchicine 0.6 mg tablet Take 2 tabs by mouth, followed by 1 tab one hour later for gout flare. Mayrepeat in 1 week. atorvastatin (LIPITOR) 20 mg tablet Take 1 tablet by mouth once daily. For cholesterol pantoprazole DR (PROTONIX) 40 mg tablet Take 1 tablet by mouth twice daily. Take on empty stomach, 1/2 hr before meal. lisinopril (ZESTRIL, PRINIVIL) 40 mg tablet Take 1 tablet by mouth once daily. allopurinol (ZYLOPRIM) 100 mg tablet Take 2 tablets by mouth once daily. For gout. amLODIPine (NORVASC) 2.5 mg tablet Take one tablet daily along with 5 mg tablet metoprolol succinate ER (TOPROL XL) 100 mg Take 1 tablet by mouth once daily. amLODIPine (NORVASC) 5 mg tablet Take 1 tablet by mouth once daily. naproxen (NAPROSYN) 500 mg tablet Take 1 tablet by mouth twice daily as needed (gout flare). Take with food. meclizine (ANTIVERT) 25 mg tab Take 1 tablet by mouth twice daily as needed. TAKE 1 TABLET BY MOUTHAS NEEDED. USES FOR TRAVELING ONLY. No current facility-administered medications for this visit. Medications and allergies reviewed by this provider. SOCIAL HISTORY Social History Tobacco Use Smoking status: Former Packs/day: 1.00 Years: 15.00 Pack years: 15.00 Types: Cigarettes Quit date: 06/08/2002 Years since quittin.5 Smokeless tobacco: Never Vaping Use Vaping Use: Never used Substance Use Topics Alcohol use: Yes Comment: very seldom, not even 1 drink per month Drug use: No REVIEW OF SYSTEMS All other reviewed and negative other than HPI. OBJECTIVE: BP 120/68 Pulse 77 Resp 16 Wt 78.5 kg (173 lb) SpO2 97% BMI 27.10 kg/m . Vital signs reviewed by this provider. APPEARANCE Well appearing, alert, in no acute distress, well-hydrated, well nourished. EYES conjunctiva and sclera normal. HEART RRR with normal S1 and S2, no murmurs, no gallops, no JVD appreciated LUNG clear to auscultation. No wheezes, rhonchi or rales EXTREMITIES Extremities normal, No deformities, No skin discoloration, and No edema SKIN Skin color, texture, turgor normal, no suspicious rashes or lesions to exposed skin Component Latest Ref Rng & Units 11/20/2022 WBC 3.70 - 11.00 k/uL 8.52 RBC 4.20 - 6.00 m/uL 4.78 Hemoglobin 13.0 - 17.0 g/dL 14.8 Hematocrit 39.0 - 51.0 % 44.4 MCV 80.0 - 100.0 fL 92.9 MCH 26.0 - 34.0 pg 31.0 MCHC 30.5 - 36.0 g/dL 33.3 RDW-CV 11.5 - 15.0 % 13.1 Platelet Count 150 - 400 k/uL 351 MPV 9.0 - 12.7 fL 8.6 (L) Neut% % 59.4 Abs Neut (ANC) 1.45 - 7.50 k/uL 5.07 Lymph% % 26.8 Abs Lymph 1.00 - 4.00 k/uL 2.28 [place]% % 6.6 Abs [place] <0.87 k/uL 0.56 Eosin% % 4.6 Abs Eosin <0.46 k/uL 0.39 Baso% % 1.4 Abs Baso <0.11 k/uL 0.12 (H) Immature Gran % % 1.2 IMMATURE GRANS (ABS) <0.10 k/uL 0.10 (H) NRBC /100 WBC 0.0 Absolute nRBC <0.01 k/uL <0.01 DTYPE Auto Protein, Total 6.3 - 8.0 g/dL 6.9 Albumin 3.9 - 4.9 g/dL 3.9 Calcium 8.5 - 10.2 mg/dL 9.1 Bilirubin, Total 0.2 - 1.3 mg/dL 0.2 Alkaline Phosphatase 38 - 113 U/L 110 AST 14 - 40 U/L 23 ALT 10 - 54 U/L 18 Glucose 74 - 99 mg/dL 91 BUN 9 - 24 mg/dL 13 Creatinine 0.73 - 1.22 mg/dL 0.88 Sodium 136 - 144 mmol/L 138 Potassium 3.7 - 5.1 mmol/L 4.6 Chloride 97 - 105 mmol/L 101 CO2 22 - 30 mmol/L 26 Anion Gap 9 - 18 mmol/L 11 eGFR >=60 mL/min/1.73m 91 Component Latest Ref Rng & Units 03/23/2022 Total Cholesterol, Nonfasting <200 mg/dL 114 Triglycerides, Nonfasting <150 mg/dL 77 HDL Cholesterol, Nonfasting >39 mg/dL 35 (L) LDL Cholesterol, Nonfasting <100 mg/dL 64 Non HDL Cholesterol, Nonfasting <130 mg/dL 79 VLDL Cholesterol, Nonfasting <30 mg/dL 15 Total Chol/HDL Ratio, Nonfasting <5.10 mg/dL 3.26 LDL/HDL Ratio, Nonfasting <2.54 mg/dL 1.83 Component Latest Ref Rng & Units 05/04/2022 Uric Acid 4.0 - 8.1 mg/dL 4.1 COVID-19 VACCINE(5 - Booster for Pfizer series) due on 05/16/2022 ADVANCE DIRECTIVE DISCUSSION Never done DEPRESSION ASSESSMENT Never done DTAP,TDAP,TD(2 - Td or Tdap) due on 03/21/2023 LDL CHOLESTEROL due on 03/23/2023 ANNUAL PCP TEAM CHRONIC DISEASE VISIT due on 11/20/2023 BP CONTROLLED (<130/80) due on 11/20/2023 DIABETES SCREEN due on 11/20/2025 LIPID SCREEN due on 03/23/2027 COLORECTAL CANCER SCREENING due on 07/28/2030 ABDOMINAL AORTIC ANEURYSM SCREENING Completed INFLUENZA Completed HEPATITIS C SCREENING Completed SHINGRIX VACCINE Completed PNEUMOCOCCAL: 65+ Completed ASSESSMENT/PLAN: 1. Primary hypertension - ICD9: 401.9, ICD10: I10 (primary diagnosis) - good control - Continue current medication(s) - Encouraged dietary sodium restriction/DASH diet - Recommended regular aerobic exercise. - Recommend home blood pressure monitoring, to bring results in on next visit - Recheck in 6 months, sooner should new symptoms or problems arise. - Goal of BP <130/80 - Recommended no refined sugar, low refined starch, healthy oil intake (olive oil), healthy protein(fish) along the lines of the Mediterranean diet. 2. Idiopathic chronic gout without tophus, unspecified site - ICD9: 274.02, ICD10: [id number].00X0 - continue allopurinol and colchicine for flares - reviewed low purine diet - URIC ACID BLOOD - follow-up as needed 3. Encounter for immunization - ICD9: V03.89, ICD10: Z23 - PFIZER-[employer]ION[employer] COVID-19 BIVALENT BOOSTER VACCINE, AGE 12+ YR 4. Abdominal aortic aneurysm (AAA) without rupture, unspecified part (HCC) - ICD9: 441.4, ICD10: I71.40 - follow-up with vascular as recommended 5. 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, unspecified vessel or lesion type - ICD9: 414.01, ICD10: I25.10 - stable - continue on low sodium diet, low cholesterol diet, statin and keep BP less than or equal to 130/80 - follow-up in 6 months, sooner if needed 6. Mixed hyperlipidemia - ICD9: 272.2, ICD10: E78.2 - good control - Continue current medication. - Encouraged following a low fat, low cholesterol diet. - Follow up in 6 months. - Encouraged following a low carbohydrate, healthy oil intake diet. Melanie Livingston APRN.CNP Prescription instructions reviewed with patient as applicable. Patient advised if symptoms do not improve or if symptoms worsen sooner, to contact their primary care physician. Potential red flag symptoms discussed with the patient. Reviewed appropriate action plan to take if red flag symptoms occur. Patient agreeable to treatment plan. I spent a total of 25 minutes on the date of the service which included preparing to see the patient, [id number] patient care, completing clinical documentation, obtaining and/or reviewing separately obtained history, performing a medically appropriate examination, counseling and educating the pat ient/family/caregiver, and ordering medications, tests, or procedures. documented in this encounterMer[facility]03-06-2023 Miscellaneous Notes* Telephone Encounter - Avelina Helm LPN - 12/11/2022 9:18 AM EST Patient phones requesting refills as follows: Requested Prescriptions Pending Prescriptions Disp Refills colchicine 0.6 mg tablet 6 tablet 0 Sig: Take 2 tabs by mouth, followed by 1 tab one hour later for gout flare. May repeat in 1 week. JHONATAN 11/20/22 NOV 12/19/22 Please review and advise. Avelina Helm LPN documented in this encounterMer[facility]02-13-2023 Miscellaneous Notes* Telephone Encounter - Lacey Webb Ma - 11/20/2022 5:03 PM EST Pt notified of results via ISBX. Lacey Webb Ma * Telephone Encounter - Lacey Webb Ma - 11/20/2022 5:02 PM EST ----- Message from Samuel Foy MD sent at 11/20/2022 4:58 PM EST ----- Labs look good. No change to regimen. documented in this encounterMer[facility]02-06-2023 Miscellaneous Notes* Telephone Encounter - Lacey Webb Ma - 11/13/2022 11:07 AM EST Last office visit: 10/07/22 F/u scheduled: 11/20/22 Lacey Webb Ma documented in this encounterMer[facility]12-31-2022 History of Present illness Narrative* Samuel Foy MD - 10/07/2022 10:33 AM EST Chief Complaint Patient presents with: Diarrhea: X 3 weeks and now seeing blood in stool HPI Kris Cox is a 72 year old male who presents here today for Above Complaints.. Patient complaining of intermittent watery diarrhea for the last 3 weeks. Will have 4-5 episodes ofdiarrhea on a day, then will go 2-3 days without BM before symptoms will return. Yesterday he noticed small amount of blood in the commode with significant amount of blood on the toilet paper. Admitsto increased gas without abdominal pain, nausea or vomiting. Denies fever/chills, hematochezia, decreased appetite, weight loss, abdominal distention or bloating, pain with defecation. Not taking anything OTC for symptoms. No history of similar symptoms. No recent travel or sick contacts. Denies SOB, lightheadedness, dizziness, syncope since episode ofbleeding. Past medical history, appointments, medications, allergies reviewed. Previous Medical History PAST MEDICAL HISTORY Diagnosis Date AAA (abdominal aortic aneurysm) Dr. Araujo- Multani's esophagus 2009 CAD (coronary artery disease) 2002 stress test abnormal Diverticulosis Duodenal stricture Dr. Moran Duodenitis without mention of hemorrhage Erectile dysfunction Esophagitis, unspecified Gout History of colonoscopy HTN (hypertension) Hyperlipidemia Impaired fasting glucose Overweight (BMI 25.0-29.9) Vertigo Previous Surgical History PAST SURGICAL HISTORY Procedure Laterality Date CARDIAC CATH 04/30/2007 COLONOSCOPY FLX DX W/COLLJ SPEC WHEN PFRMD 10/25/2012 few diverticula - 10 year follow up COLONOSCOPY FLX DX W/COLLJ SPEC WHEN PFRMD 07/28/2020 Colonoscopy EGD 12/03/2009 dx barretts esophagus EGD 06/10/2009 h-pylori negative EGD BALLOON DILATION ESOPHAGUS <30 MM DIAM 01/30/2011 EGD TRANSORAL BIOPSY SINGLE/MULTIPLE 10/25/2012 duodenitis, gastric ulcer, gastritis, small hiatal hernia, multani's esophagitis EGD W/O [facility] SPEC VARICIES INJ 12/16/2021 ESOPHAGOGASTRODUODENOSCOPY TRANSORAL DIAGNOSTIC 07/28/2020 EGD EXPLORATORY SHOULDER SURGERY 1965 repair dislcoation. left FRACTURE SURGERY Left 1962 Fractured collar bone with surgery PAST SURGICAL HISTORY OF right and left meniscus surgeries of knee PAST SURGICAL HISTORY OF 2008 right middle finger trigger repair PAST SURGICAL HISTORY OF 08/02/2012 right ring trigger finger release PAST SURGICAL HISTORY OF 01/09/2014 Left 3rd finger trigger release TONSILLECTOMY HX Family History FAMILY HISTORY Problem Relation Age of Onset Cancer Mother liver Heart Father Lipids Father other (depression) Sister Multiple Sclerosis Brother Patient Allergies ALLERGIES No Known Allergies Current Medications Current Outpatient Medications on File Prior to Visit Medication Sig pantoprazole DR (PROTONIX) 40 mg tablet Take 1 tablet by mouth twice daily. Take on empty stomach, 1/2 hr before meal. lisinopril (ZESTRIL, PRINIVIL) 40 mg tablet Take 1 tablet by mouth once daily. atorvastatin (LIPITOR) 20 mg tablet Take 1 tablet by mouth once daily. For cholesterol allopurinol (ZYLOPRIM) 100 mg tablet Take 2 tablets by mouth once daily. For gout. amLODIPine (NORVASC) 2.5 mg tablet Take one tablet daily along with 5 mg tablet metoprolol succinate ER (TOPROL XL) 100 mg Take 1 tablet by mouth once daily. amLODIPine (NORVASC) 5 mg tablet Take 1 tablet by mouth once daily. colchicine 0.6 mg tablet Take 2 tabs by mouth, followed by 1 tab one hour later for gout flare. Mayrepeat in 1 week. naproxen (NAPROSYN) 500 mg tablet Take 1 tablet by mouth twice daily as needed (gout flare). Take with food. meclizine (ANTIVERT) 25 mg tab Take 1 tablet by mouth twice daily as needed. TAKE 1 TABLET BY MOUTHAS NEEDED. USES FOR TRAVELING ONLY. No current facility-administered medications on file prior to visit. Social History Social History Tobacco Use Smoking status: Former Packs/day: 1.00 Years: 15.00 Pack years: 15.00 Types: Cigarettes Quit date: 06/08/2002 Years since quittin.3 Smokeless tobacco: Never Vaping Use Vaping Use: Never used Substance Use Topics Alcohol use: Yes Comment: very seldom, not even 1 drink per month Drug use: No Review of Symptoms REVIEW OF SYSTEMS See HPI EXAM: BP 118/70 Pulse (!) 55 Resp 16 Wt 76.3 kg (168 lb 3.2 oz) SpO2 95% BMI 26.34 kg/m General Appearance: Well appearing, alert, in no acute distress, well-hydrated, well nourished.. Skin: Skin color, texture, turgor normal, no suspicious rashes or lesions. Abdomen: Abdomen soft, non-tender. Bowel sounds hypoactive. No masses, organomegaly. Rectal: Negative findings: perianal area normal, anus normal, digital rectal exam negative, anal sphincter tone normal, no appreciable blood. Negative for external/internal hemorrhoids or anal fissure. Health Maintenance List BP CONTROLLED (<130/80) Never done ADVANCE DIRECTIVE DISCUSSION Never done DEPRESSION ASSESSMENT Never done COVID-19 VACCINE(5 - Booster for Pfizer series) due on 05/16/2022 DTAP,TDAP,TD(2 - Td or Tdap) due on 03/21/2023 LDL CHOLESTEROL due on 03/23/2023 ANNUAL PCP TEAM CHRONIC DISEASE VISIT due on 05/04/2023 DIABETES SCREEN due on 05/04/2025 LIPID SCREEN due on 03/23/2027 COLORECTAL CANCER SCREENING due on 07/28/2030 ABDOMINAL AORTIC ANEURYSM SCREENING Completed INFLUENZA Completed HEPATITIS C SCREENING Completed SHINGRIX VACCINE Completed PNEUMOCOCCAL: 65+ Completed ASSESSMENT/PLAN: 1. Gastrointestinal hemorrhage, unspecified gastrointestinal hemorrhage type - ICD9: 578.9, ICD10: K92.2 (primary diagnosis) Patient with significant bleeding yesterday along with recurrent diarrhea, hypoactive BS and loss of appetite. Discussed limited ability to perform STAT workup with holiday weekend. Referred to [facility] ED for immediate workup and sent report. Concerned for diverticulitis vs bowel obstruction, infecitonwith anemia. Will follow up recommendations. If workup negative, will refer for outpatient colonoscopy. 2. Diarrhea, unspecified type - ICD9: 787.91, ICD10: R19.7 Samuel Foy MD documented in this encounterMercy [facility]11-04-2022 History of Present illness Narrative* Naif Graves MD - 08/11/2022 11:15 AM EDT Images from the original note were not included. [facility] [place] DEPARTMENT OF VASCULAR SURGERY OUTPATIENT VISIT DATE August 11, 2022 OUTPATIENT VISIT TYPE ESTABLISHED SERVICE DATE: 08/11/2022 SERVICE TIME: 11:11 AM PRIMARY CARE PHYSICIAN: Samuel Foy MD HISTORY OF PRESENT ILLNESS: Mr. Cox is a 72 year old male who presents today for a vascular surgery follow-up visit of an AAA. 72 y/o M w/ hx of GERD, duodenal stricture, HTN, HLD, and an asymptomatic AAA who presents for evaluation of his AAA. Pt was seen by Dr. Houston on 07/18/22 at which time he had a 5.2cm infrarenal AAA on duplex ultrasound. Pt subsequently underwent a CTA to evaluate his AAA which reported a 5.2cm AAA. Pt was referred for further management of his AAA. Since he was last seen by Dr. Houston, denies any abdominal pain. Has had bilateral low back pain forthe past 3 months. PAST MEDICAL HISTORY Diagnosis Date AAA (abdominal aortic aneurysm) Dr. Araujo- Multani's esophagus 2009 CAD (coronary artery disease) 2002 stress test abnormal Diverticulosis Duodenal stricture Dr. Moran Duodenitis without mention of hemorrhage Erectile dysfunction Esophagitis, unspecified Gout History of colonoscopy HTN (hypertension) Hyperlipidemia Impaired fasting glucose Overweight (BMI 25.0-29.9) Vertigo PAST SURGICAL HISTORY Procedure Laterality Date CARDIAC CATH 04/30/2007 COLONOSCOPY FLX DX W/COLLJ SPEC WHEN PFRMD 10/25/2012 few diverticula - 10 year follow up COLONOSCOPY FLX DX W/COLLJ SPEC WHEN PFRMD 07/28/2020 Colonoscopy EGD 12/03/2009 dx barretts esophagus EGD 06/10/2009 h-pylori negative EGD BALLOON DILATION ESOPHAGUS <30 MM DIAM 01/30/2011 EGD TRANSORAL BIOPSY SINGLE/MULTIPLE 10/25/2012 duodenitis, gastric ulcer, gastritis, small hiatal hernia, multani's esophagitis EGD W/O [facility] SPEC VARICIES INJ 12/16/2021 ESOPHAGOGASTRODUODENOSCOPY TRANSORAL DIAGNOSTIC 07/28/2020 EGD EXPLORATORY SHOULDER SURGERY 1965 repair dislcoation. left FRACTURE SURGERY Left 1961 Fractured collar bone with surgery PAST SURGICAL HISTORY OF right and left meniscus surgeries of knee PAST SURGICAL HISTORY OF 2008 right middle finger trigger repair PAST SURGICAL HISTORY OF 08/02/2012 right ring trigger finger release PAST SURGICAL HISTORY OF 01/09/2014 Left 3rd finger trigger release TONSILLECTOMY HX SOCIAL HISTORY Social History Tobacco Use Smoking status: Former Packs/day: 1.00 Years: 15.00 Pack years: 15.00 Types: Cigarettes Quit date: 06/08/2002 Years since quittin.1 Smokeless tobacco: Never Vaping Use Vaping Use: Never used Substance Use Topics Alcohol use: Yes Comment: very seldom, not even 1 drink per month Drug use: No MEDICATIONS: pantoprazole DR (PROTONIX) 40 mg tablet Take 1 tablet by mouth twice daily. Take on empty stomach, 1/2 hr before meal. lisinopril (ZESTRIL, PRINIVIL) 40 mg tablet Take 1 tablet by mouth once daily. atorvastatin (LIPITOR) 20 mg tablet Take 1 tablet by mouth once daily. For cholesterol allopurinol (ZYLOPRIM) 100 mg tablet Take 2 tablets by mouth once daily. For gout. amLODIPine (NORVASC) 2.5 mg tablet Take one tablet daily along with 5 mg tablet metoprolol succinate ER (TOPROL XL) 100 mg Take 1 tablet by mouth once daily. amLODIPine (NORVASC) 5 mg tablet Take 1 tablet by mouth once daily. colchicine 0.6 mg tablet Take 2 tabs by mouth, followed by 1 tab one hour later for gout flare. Mayrepeat in 1 week. naproxen (NAPROSYN) 500 mg tablet Take 1 tablet by mouth twice daily as needed (gout flare). Take with food. meclizine (ANTIVERT) 25 mg tab Take 1 tablet by mouth twice daily as needed. TAKE 1 TABLET BY MOUTHAS NEEDED. USES FOR TRAVELING ONLY. ALLERGIES: ALLERGIES No Known Allergies PHYSICAL EXAM: BP 139/66 (BP Site: Left Arm, BP Position: Sitting, BP Cuff Size: Regular Adult) Ht 170.2 cm (5' 7) Wt 79.4 kg (175 lb) BMI 27.41 kg/m General: Alert and oriented, No acute distress Integumentary: Normal color, no rash, no lesions. HEENT: No carotid bruits Cardiovascular: Normal S1 & S2, no rubs, murmurs or gallops. No JVD., Pulse regular. Lungs: Normal breath sounds, no wheezes or crackles. Abdomen: Soft, non-tender, no rigidity. No tenderness over pulsatile abdominal mass Extremities: No deformity, no edema or tenderness, no joint swelling or clubbing. Neurological: Normal cognition and motor skills. Vascular: Carotid Pulse Right: Normal - Left: Normal Brachial Pulse Right: Normal - Left: Normal Radial Pulse Right: Normal - Left: Normal Femoral Pulse Right: Normal - Left: Normal Popliteal Pulse Right: Normal - Left: Normal Posterior Tibial Right: Normal - Left: Normal Diagnostic tests reviewed for today's visit: 08/01/2022 - CTA Abdomen/Pelvis w/ IV contrast On my review an infrarenal AAA that is 5.2cm with accessory R renal artery noted. No evidence of rupture or michaelle-aortic stranding. 05/05/2022 - Abdominal Aortic Duplex Ultrasound AORTA (AP x TV): Proximal: 2.6 cm x 2.6 cm Mid (level of renal arteries): 3 cm x 2.9 cm Distal: 5.3 cm x 5.2 cm Common Iliac Arteries (AP x TV): Right: 1.3 cm x 1.4 cm Left: 1.3 cm x 1.4 cm IMPRESSION: Mr. Cox is a 72 year old male w/ an asymptomatic 5.2cm infrarenal abdominal aortic aneurysm. PLAN and RECOMMENDATIONS: - Follow-up in 6 months with CTA C/A/P given no prior imaging of the thoracic aorta Medical Decision Making: Problems: Moderate: 1+ chronic illnesses with change Data: Unique test result(s) reviewed: 2 Unique test(s) ordered: 1 Independent interpretation of test from other physician/QHCP Medical Decision Making Level: 4 - Moderate SIGNATURE: Naif Graves MD PATIENT NAME: Kris Cox DATE: August 11, 2022 TIME: 3:14 PM documented in this encounterMer[facility]11-04-2022 Miscellaneous Notes* Telephone Encounter - hSira Noel LPN - 08/11/2022 8:51 AM EDT Patient phones requesting refills as follows: Requested Prescriptions Pending Prescriptions Disp Refills lisinopril (ZESTRIL, PRINIVIL) 40 mg tablet 90 tablet 1 Sig: Take 1 tablet by mouth once daily. JHONATAN 05/04/22 NOV 11/30/22 Please review and advise. Shira Noel LPN documented in this encounterMer[facility]11-01-2022 Miscellaneous Notes* Telephone Encounter - Kimberlyn Lanza - 08/08/2022 11:47 AM EDT Appointment confirmed * Telephone Encounter - Kimberlyn Lanza - 08/08/2022 10:20 AM EDT Left message for patient to call office to confirm appointment on 08/11/2022 with documented in this encounterMer[facility]10-28-2022 Miscellaneous Notes* Telephone Encounter - Carleen Mills LPN - 08/04/2022 11:34 AM EDT Patient phones requesting refills as follows: Requested Prescriptions Pending Prescriptions Disp Refills atorvastatin (LIPITOR) 20 mg tablet 90 tablet 0 Sig: Take 1 tablet by mouth once daily. For cholesterol JHONATAN-05/04/22 Labs-07/18/22 NOV-11/20/22 med filled 04/28/22 Please review and advise. Carleen Mills LPN documented in this encounterMercy [facility]. [facility]10-11-2022 History of Present illness Narrative* Samantha Houston, DO - 07/18/2022 9:54 AM EDT Images from the original note were not included. Heart[facility] V[facility] Thor[facility] [place] DEPARTMENT OF VASCULAR SURGERY OUTPATIENT VISIT DATE July 18, 2022 OUTPATIENT VISIT TYPE CONSULTATION SERVICE DATE: 07/18/2022 SERVICE TIME: 9:55 AM PRIMARY CARE PHYSICIAN: Samuel Foy MD REFERRING PROVIDER: Samuel Foy [id number] [facility] [place] [id number] Consult requested for an opinion regarding the evaluation and treatment of the above. My final impression and recommendations will be communicated back to the requesting physician by way of the shared medical record or letter via US mail. CHIEF COMPLAINT: AAA HISTORY OF PRESENT ILLNESS: Vascular consultation at the request of Dr. Samuel Foy. A copy of this consultation notewill be provided to the requesting physician by way of shared Medical record or letter to requesting physician via US mail. Mr. Cox is a 72 year old male who is seen today for infrarenal AAA. He had been followed at and wanted to establish care at [facility]. Denies any complaints. Denies previous abdominal trauma. No prior intervention. Denies claudication. PAST MEDICAL HISTORY Diagnosis Date AAA (abdominal aortic aneurysm) Dr. Araujo- Multani's esophagus 2009 CAD (coronary artery disease) 2002 stress test abnormal Diverticulosis Duodenal stricture Dr. Friend Duodenitis without mention of hemorrhage Erectile dysfunction Esophagitis, unspecified Gout History of colonoscopy HTN (hypertension) Hyperlipidemia Impaired fasting glucose Overweight (BMI 25.0-29.9) Vertigo PAST SURGICAL HISTORY Procedure Laterality Date CARDIAC CATH 04/30/2007 COLONOSCOPY FLX DX W/COLLJ SPEC WHEN PFRMD 10/25/2012 few diverticula - 10 year follow up COLONOSCOPY FLX DX W/COLLJ SPEC WHEN PFRMD 07/28/2020 Colonoscopy EGD 12/03/2009 dx barretts esophagus EGD 06/10/2009 h-pylori negative EGD BALLOON DILATION ESOPHAGUS <30 MM DIAM 01/30/2011 EGD TRANSORAL BIOPSY SINGLE/MULTIPLE 10/25/2012 duodenitis, gastric ulcer, gastritis, small hiatal hernia, multani's esophagitis EGD W/O [facility] SPEC VARICIES INJ 12/16/2021 ESOPHAGOGASTRODUODENOSCOPY TRANSORAL DIAGNOSTIC 07/28/2020 EGD EXPLORATORY SHOULDER SURGERY 1965 repair dislcoation. left FRACTURE SURGERY Left 1961 Fractured collar bone with surgery PAST SURGICAL HISTORY OF right and left meniscus surgeries of knee PAST SURGICAL HISTORY OF 2008 right middle finger trigger repair PAST SURGICAL HISTORY OF 08/02/2012 right ring trigger finger release PAST SURGICAL HISTORY OF 01/09/2014 Left 3rd finger trigger release TONSILLECTOMY HX SOCIAL HISTORY: Social History Tobacco Use Smoking status: Former Packs/day: 1.00 Years: 15.00 Pack years: 15.00 Types: Cigarettes Quit date: 06/08/2002 Years since quittin.1 Smokeless tobacco: Never Vaping Use Vaping Use: Never used Substance Use Topics Alcohol use: Yes Comment: very seldom, not even 1 drink per month Drug use: No FAMILY HISTORY Problem Relation Age of Onset Cancer Mother liver Heart Father Lipids Father other (depression) Sister Multiple Sclerosis Brother MEDICATIONS: pantoprazole DR (PROTONIX) 40 mg tablet Take 1 tablet by mouth twice daily. Take on empty stomach, 1/2 hr before meal. amLODIPine (NORVASC) 2.5 mg tablet Take one tablet daily along with 5 mg tablet amLODIPine (NORVASC) 5 mg tablet Take 1 tablet by mouth once daily. lisinopril (ZESTRIL, PRINIVIL) 40 mg tablet Take 1 tablet by mouth once daily. colchicine 0.6 mg tablet Take 2 tabs by mouth, followed by 1 tab one hour later for gout flare. Mayrepeat in 1 week. naproxen (NAPROSYN) 500 mg tablet Take 1 tablet by mouth twice daily as needed (gout flare). Take with food. metoprolol succinate ER (TOPROL XL) 100 mg Take 1 tablet by mouth once daily. atorvastatin (LIPITOR) 20 mg tablet Take 1 tablet by mouth once daily. For cholesterol allopurinol (ZYLOPRIM) 100 mg tablet Take 2 tablets by mouth once daily. For gout. meclizine (ANTIVERT) 25 mg tab Take 1 tablet by mouth twice daily as needed. TAKE 1 TABLET BY MOUTHAS NEEDED. USES FOR TRAVELING ONLY. ALLERGIES: ALLERGIES No Known Allergies REVIEW of SYSTEM: Constitutional: No weight loss, malaise or fevers. HEENT: Negative for frequent or significant headaches, No changes in hearing or vision, no nose bleeds or other nasal problems Respiratory: Negative for cough, wheezing, or shortness of breath Cardiovascular: Negative for chest pain, leg swelling or palpitations Gatrointestinal: Negative for abdominal discomfort, blood in stools or black stools or change in bowel habits Genitourinary: No difficulty urination, nocturia >1 times per night or hematuria Musculoskeletal: Negative for muscle pain and Positive for low back pain, joint swelling, joint pain, and HAD SHOULDER SURGERY IN THE 60'S Endocrine: Negative for cold or heat intolerance, polyuria, polydipsia and goiter Hematology/Lymphatic: Negative for prolonged bleeding and Positive for bruises easily Neurologic: No history or headaches, syncope, paralysis, seizures or tremors Integumentary: Negative for lesions, rash, and itching. PHYSICAL EXAM: VITALS: There were no vitals taken for this visit. General: Alert and oriented Integumentary: Normal color, no rash, no lesions. HEENT: EOM, pupils equal, round and reactive. Cardiovascular: Pulse regular. Lungs: No chest deformities or chest wall tenderness. Abdomen: Not examined Extremities: No deformity, no edema or tenderness, no joint swelling or clubbing. Neurological: Normal cognition and motor skills. Vascular: Posterior Tibial Right: Normal - Left: Normal. Non palpable popliteal pulse Diagnostic tests reviewed for today's visit: Most recent labs Most recent imaging Aorta ultrasound- 5.2 cm infrarenal aaa IMPRESSION: Mr. Cox is a 72 year old male with infrarenal AAA . PLAN and RECOMMENDATIONS: Reviewed aneurysms with patient Recommend CTA to better characterize aneurysm size and assess for enlargement Will call with results of CT scan as if increased to greater than 5.5cm he would benefit from repair. SIGNATURE: Samantha Houston DO PATIENT NAME: Kris Cox DATE: July 18, 2022 TIME: 9:55 AM documented in this [facility] Miscellaneous Notes* Telephone Encounter - Krish Sher LPN - 07/14/2022 10:13 AM EDT Records show valid rx at pharmacy for Pantoprazole Patient has been identified by name and date of : Yes Patient phones for refill(s): Requested Prescriptions Pending Prescriptions Disp Refills amLODIPine (NORVASC) 2.5 mg tablet 30 tablet 1 Sig: Take one tablet daily along with 5 mg tablet Refused Prescriptions Disp Refills pantoprazole DR (PROTONIX) 40 mg tablet 60 tablet 2 Sig: Take 1 tablet by mouth twice daily. Take on empty stomach, 1/2 hr before meal. Date of last office visit in primary care: 05/04/22 next apt 11/20/22 Last 2 Encounter Wt Readings: Date: Wt: 05/04/2022 75.9 kg (167 lb 6.4 oz) 03/21/2022 76.7 kg (169 lb 3.2 oz) Previous labs/tests for medication: Blood Pressure: BUN (mg/dL) Date Value 05/04/2022 16 11/04/2021 17 Sodium (mmol/L) Date Value 05/04/2022 140 11/04/2021 140 Last 1 Encounter BP Readings: Date: BP: 05/04/2022 136/64[recheck[ Thank you. Krish Sher LPN documented in this encounterMer[facility]09-27-2022 Miscellaneous Notes* Telephone Encounter - Marybel Hardy - 07/04/2022 9:48 AM EDT Patient MyChart message requesting the following refill. Requested Prescriptions Pending Prescriptions Disp Refills amLODIPine (NORVASC) 5 mg tablet 90 tablet 1 Sig: Take 1 tablet by mouth once daily. Patient last appointment: 05/04/2022 Next appointment: 11/20/2022 Patient Phone numbers: [phone] (home) Request is for script(s) to be escript to pharmacy. Marybel Hardy documented in this [facility]09-10-2022 Miscellaneous Notes* Telephone Encounter - Michael Valdez LPN - 06/17/2022 9:52 AM EDT Patient phones requesting refills as follows: Requested Prescriptions Pending Prescriptions Disp Refills pantoprazole DR (PROTONIX) 40 mg tablet 60 tablet 2 Sig: Take 1 tablet by mouth twice daily. Take on empty stomach, 1/2 hr before meal. JHONATAN 05/04/22 11/20/22 Please review and advise. Michael Valdez LPN documented in this [facility]08-29-2022 Miscellaneous Notes* Telephone Encounter - Avelina Helm LPN - 06/05/2022 9:56 AM EDT JHONATAN 05/04/22 11/20/22 documented in this [facility]08-29-2022 Miscellaneous Notes* Telephone Encounter - Lacey Webb Ma - 06/05/2022 9:42 AM EDT Pt should still have a refill remaining. documented in this [facility]07-29-2022 Miscellaneous Notes* Telephone Encounter - Lacey Webb Ma - 05/05/2022 1:58 PM EDT Pt notified of results via [employer] Lacey Webb Ma * Telephone Encounter - Shira Noel LPN - 05/05/2022 12:49 PM EDT Phoned patient and message left to return call for update. Please go over all 3 TE's. * Telephone Encounter - Shira Noel LPN - 05/05/2022 12:49 PM EDT ----- Message from Samuel Foy MD sent at 05/05/2022 8:11 AM EDT ----- Normal labs. No change to regimen. documented in this encounterMer[facility]07-29-2022 Miscellaneous Notes* Telephone Encounter - Lacey Webb Ma - 05/05/2022 1:57 PM EDT Pt notified of results via [employer] Lacey Webb Ma * Telephone Encounter - Shira Noel LPN - 05/05/2022 12:55 PM EDT Phone message left for patient to return call for results. Please address all 3 TE's with patient. * Telephone Encounter - Shira Noel LPN - 05/05/2022 12:54 PM EDT ----- Message from Samuel Foy MD sent at 05/05/2022 8:10 AM EDT ----- Uric acid level is less than 5. I would have him continue to take the allopurinol and work on gout diet as discussed in office. documented in this encounterMer[facility]07-29-2022 Miscellaneous Notes* Telephone Encounter - Lacey Webb Ma - 05/05/2022 1:57 PM EDT Pt notified of results via [employer]. Lacey Webb Ma * Telephone Encounter - Shira Noel LPN - 05/05/2022 12:56 PM EDT Phoned patient and message left for him to return call for results. Please address all 3 TE's with patient. * Telephone Encounter - Shira Noel LPN - 05/05/2022 12:56 PM EDT ----- Message from Samuel Foy MD sent at 05/05/2022 9:22 AM EDT ----- Ultrasound shows 5.3 x 5.2 cm abdominal aneurysm which has not appreciably changed in size comparedto previous study. Recommend he follow up with vascular surgery for further evaluation and monitoring as discussed. documented in this encounterMer[facility]07-29-2022 History of Present illness Narrative* Ana Chappell RDMS - 05/05/2022 7:30 AM EDT Radiology Service Progress Note PATIENT NAME: Kris Cox DATE OF SERVICE: May 05, 2022 TIME: 8:03 AM PATIENT IDENTITY VERIFICATION COMPLETED USING TWO (2) IDENTIFIERS: Name and Date of confirmedby patient verbally. FALL SCREENING: Has the patient had 2 falls in the last year or 1 fall with injury or currently using an Ambulatory Assistive Device (Walker, Cane, Wheelchair, Crutches, etc.)? No PATIENT GENDER DATA: Male PATIENT RELEVANT IMPLANT DATA REVIEWED: Not Applicable RADIOLOGY DEPARTMENT: Ultrasound PERIPHERAL IV DATA: Not applicable SIGNED BY: Ana Chappell RDMS RVT May 05, 2022 8:03 AM documented in this encounterMer[facility]07-28-2022 History of Present illness Narrative* Samuel Foy MD - 05/04/2022 3:50 PM EDT Chief Complaint Patient presents with: Follow Up: 6 month Rx Refills: wants new rx for naproxen 500mg prn HPI Kris Cox is a 71 year old male who presents here today for Above Complaints. Patient states that he did not get his colchicine for his last gout flare until about 2 weeks ago. Was having difficulty with his pharmacy. Had another flare up on his left big toe a few days after his last office visit. Treated with Naproxen at home and symptoms resolved after a couple days. No symptoms now. Has been taking his allopurinol as prescribed without side effects. Would like rx for naproxen in case of flare up. Found to have duodenal stricture on last EGD. Recommended follow up in 6 months which he states hasbeen scheduled with Dr. Moran. Denies abdominal pain, nausea, vomiting, constipation. Patient has been compliant with Protonix for Barretts esophagus and denies GERD symptoms. Requesting referral to new specialist within [facility] for his history of AAA. Previously managed by Dr. Araujo, but last OV was more than 12 months ago. Measuring 5 cm in October 2020. Asymptomatic at this time. BP mildly elevated above goal of <130/80 with history of CAD and AAA. Compliant with regimen on a daily basis. Not checking regularly at home. Normal at last OV. PHQ-2 / Depression screen He in the past two weeks denies having felt down, depressed, hopeless or with little interest or pleasure in doing things. Past medical history, appointments, medications, allergies reviewed. Previous Medical History PAST MEDICAL HISTORY Diagnosis Date AAA (abdominal aortic aneurysm) ([facility]) Dr. Araujo- Multani's esophagus 2009 CAD (coronary artery disease) 2002 stress test abnormal Diverticulosis Duodenitis without mention of hemorrhage Erectile dysfunction Esophagitis, unspecified Gout History of colonoscopy HTN (hypertension) Hyperlipidemia Impaired fasting glucose Overweight (BMI 25.0-29.9) Vertigo Previous Surgical History PAST SURGICAL HISTORY Procedure Laterality Date CARDIAC CATH 04/30/2007 COLONOSCOPY FLX DX W/COLLJ SPEC WHEN PFRMD 10/25/2012 few diverticula - 10 year follow up COLONOSCOPY FLX DX W/COLLJ SPEC WHEN PFRMD 07/28/2020 Colonoscopy EGD 12/03/2009 dx barretts esophagus EGD 06/10/2009 h-pylori negative EGD BALLOON DILATION ESOPHAGUS <30 MM DIAM 01/30/2011 EGD TRANSORAL BIOPSY SINGLE/MULTIPLE 10/25/2012 duodenitis, gastric ulcer, gastritis, small hiatal hernia, multani's esophagitis EGD W/O [facility] SPEC VARICIES INJ 12/16/2021 ESOPHAGOGASTRODUODENOSCOPY TRANSORAL DIAGNOSTIC 07/28/2020 EGD EXPLORATORY SHOULDER SURGERY 1965 repair dislcoation. left FRACTURE SURGERY Left 1961 Fractured collar bone with surgery PAST SURGICAL HISTORY OF right and left meniscus surgeries of knee PAST SURGICAL HISTORY OF 2008 right middle finger trigger repair PAST SURGICAL HISTORY OF 08/02/2012 right ring trigger finger release PAST SURGICAL HISTORY OF 01/09/2014 Left 3rd finger trigger release TONSILLECTOMY HX Family History FAMILY HISTORY Problem Relation Age of Onset Cancer Mother liver Heart Father Lipids Father other (depression) Sister Multiple Sclerosis Brother Patient Allergies ALLERGIES No Known Allergies Current Medications Current Outpatient Medications on File Prior to Visit Medication Sig metoprolol succinate ER (TOPROL XL) 100 mg Take 1 tablet by mouth once daily. atorvastatin (LIPITOR) 20 mg tablet Take 1 tablet by mouth once daily. For cholesterol allopurinol (ZYLOPRIM) 100 mg tablet Take 2 tablets by mouth once daily. For gout. colchicine 0.6 mg tablet Take 2 tabs by mouth, followed by 1 tab one hour later for gout flare. Mayrepeat in [address] (PROTONIX) 40 mg tablet Take 1 tablet by mouth twice daily. Take on empty stomach, 1/2 hr before meal. lisinopril (ZESTRIL, PRINIVIL) 40 mg tablet Take 1 tablet by mouth once daily. meclizine (ANTIVERT) 25 mg tab Take 1 tablet by mouth twice daily as needed. TAKE 1 TABLET BY MOUTHAS NEEDED. USES FOR TRAVELING ONLY. aspirin, enteric coated (ASPIRIN, ENTERIC COATED) 81 mg EC tablet Take 81 mg by mouth once daily. No current facility-administered medications on file prior to visit. Social History Social History Tobacco Use Smoking status: Former Smoker Packs/day: 1.00 Years: 15.00 Pack years: 15.00 Types: Cigarettes Quit date: 06/08/2002 Years since quittin.9 Smokeless tobacco: Never Used Vaping Use Vaping Use: Never used Substance Use Topics Alcohol use: Yes Comment: very seldom, not even 1 drink per month Drug use: No Review of Symptoms REVIEW OF SYSTEMS GENERAL: No weight loss, malaise or fevers RESPIRATORY: Negative for cough, hemoptysis, wheezing, COPD, dyspnea or shortness of breath CARDIOVASCULAR: Negative for chest pain, leg swelling, hypertension, CHF or palpitations GI: No nausea, vomiting, or diarrhea SKIN: Negative for lesions, rash, and itching EXAM: BP 136/64 Pulse 60 Resp 18 Wt 75.9 kg (167 lb 6.4 oz) SpO2 97% BMI 26.22 kg/m General Appearance: Well appearing, alert, in no acute distress, well-hydrated, well nourished.. Skin: Skin color, texture, turgor normal, no suspicious rashes or lesions. Lungs: Lungs clear to auscultation. No wheezing, rhonchi, rales.. Heart: RRR without murmur, gallop, or rubs. No ectopy. Abdomen: Normal abdominal exam, Abdomen soft, non-tender. Bowel sounds normal. No masses, organomegaly. Extremities: No deformities, edema, skin discoloration, clubbing or cyanosis. Good capillary refill. . Health Maintenance List BP CONTROLLED (<130/80) Never done ADVANCE DIRECTIVE DISCUSSION Never done DEPRESSION SCREENING due on 12/13/2021 DTAP,TDAP,TD(2 - Td or Tdap) due on 03/21/2023 INFLUENZA(1) due on 06/08/2022 LDL CHOLESTEROL due on 03/23/2023 ANNUAL PCP TEAM CHRONIC DISEASE VISIT due on 05/04/2023 DIABETES SCREEN due on 11/04/2024 LIPID SCREEN due on 03/23/2027 COLORECTAL CANCER SCREENING due on 07/28/2030 ABDOMINAL AORTIC ANEURYSM SCREENING Completed HEPATITIS C SCREENING Completed SHINGRIX VACCINE Completed COVID-19 VACCINE Completed PNEUMOCOCCAL: 65+ Completed Data reviewed Component Latest Ref Rng & Units 11/04/2021 03/23/2022 WBC 3.70 - 11.00 k/uL 4.81 RBC 4.20 - 6.00 m/uL 5.04 Hemoglobin 13.0 - 17.0 g/dL 15.1 Hematocrit 39.0 - 51.0 % 45.8 MCV 80.0 - 100.0 fL 90.9 MCH 26.0 - 34.0 pg 30.0 MCHC 30.5 - 36.0 g/dL 33.0 RDW-CV 11.5 - 15.0 % 12.8 Platelet Count 150 - 400 k/uL 232 MPV 9.0 - 12.7 fL 9.1 Neut% % 57.9 Abs Neut (ANC) 1.45 - 7.50 k/uL 2.79 Lymph% % 20.6 Abs Lymph 1.00 - 4.00 k/uL 0.99 (L) [place]% % 12.3 Abs [place] <0.87 k/uL 0.59 Eosin% % 7.5 Abs Eosin <0.46 k/uL 0.36 Baso% % 1.5 Abs Baso <0.11 k/uL 0.07 Immature Gran % % 0.2 IMMATURE GRANS (ABS) <0.10 k/uL <0.03 NRBC /100 WBC 0.0 Absolute nRBC <0.01 k/uL <0.01 DTYPE Auto Protein, Total 6.3 - 8.0 g/dL 6.6 Albumin 3.9 - 4.9 g/dL 4.4 Calcium 8.5 - 10.2 mg/dL 9.0 Bilirubin, Total 0.2 - 1.3 mg/dL 0.4 Alkaline Phosphatase 38 - 113 U/L 100 AST 14 - 40 U/L 23 Glucose 74 - 99 mg/dL 72 (L) BUN 9 - 24 mg/dL 17 Creatinine 0.73 - 1.22 mg/dL 1.00 Sodium 136 - 144 mmol/L 140 Potassium 3.7 - 5.1 mmol/L 4.3 Chloride 97 - 105 mmol/L 105 CO2 22 - 30 mmol/L 27 Anion Gap 9 - 18 mmol/L 8 (L) ALT 10 - 54 U/L 25 eGFR- >60 eGFR-All Other Races . >60 Total Cholesterol, Nonfasting <200 mg/dL 114 Triglycerides, Nonfasting <150 mg/dL 77 HDL Cholesterol, Nonfasting >39 mg/dL 35 (L) LDL Cholesterol, Nonfasting <100 mg/dL 64 Non HDL Cholesterol, Nonfasting <130 mg/dL 79 VLDL Cholesterol, Nonfasting <30 mg/dL 15 Total Chol/HDL Ratio, Nonfasting <5.10 mg/dL 3.26 LDL/HDL Ratio, Nonfasting <2.54 mg/dL 1.83 Hemoglobin A1C 4.3 - 5.6 % 5.6 Estimated Average Glucose mg/dL 114 Uric Acid 4.0 - 8.1 mg/dL 5.1 ASSESSMENT/PLAN: 1. Abdominal aortic aneurysm (AAA) without rupture (HCC) - ICD9: 441.4, ICD10: I71.4 (primary diagnosis) Repeat US and will refer to vascular surgery within [facility] for further monitoring and management. - CONSULT TO VASCULAR SURGERY - US ABD AORTA - US DOPPLER AORTA 2. 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 - ICD9: 274.01, ICD10: M10.072 Recheck uric acid level on higher dose allopurinol. Discussed gout diet and avoidance of sugary drinks/alcohol on his upcoming vacation. May use naproxen PRN for flares. - URIC ACID BLOOD - NAPROXEN 500 MG TABLET 3. 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- ICD9: 414.01, ICD10: I25.10 History of abnormal stress test. Has been asymptomatic on medical management with normal EKGs. Refusing further testing today. Work on low sodium diet to keep BP <130/80. F/u in 6 months or PRN. Consider repeat stress test and echo at that time. 4. Essential hypertension - ICD9: 401.9, ICD10: I10 - suboptimal control - Continue current medication(s) - Encouraged dietary sodium restriction/DASH diet - Recommended regular aerobic exercise. - Recommend home blood pressure monitoring, to bring results in on next visit - Follow up in 2 weeks for BP recheck. - Reviewed risks of HTN and principles of treatment - Goal of BP <130/80 - COMP METABOLIC PANEL 5. Multani's esophagus with dysplasia - ICD9: 530.85, ICD10: K22.719 Continue PPI. F/u with GI. 6. Duodenal stricture - ICD9: 537.3, ICD10: K31.5 Continue PPI. F/u with GI. 7. Mixed hyperlipidemia - ICD9: 272.2, ICD10: E78.2 - good control - Continue current medication. - Encouraged following a low fat, low cholesterol diet. - Discussed the benefits of regular aerobic exercise and weight loss. Samuel Foy MD documented in this [facility]07-22-2022 Miscellaneous Notes* Telephone Encounter - Carleen Mills LPN - 04/28/2022 9:36 AM EDT Patient phones requesting refills as follows: Pending Prescriptions Disp Refills ATORVASTATIN 20 MG TABLET 90 tablet 3 Sig: Take 1 tablet by mouth once daily. For cholesterol NEERAJ: No JHONATAN-03/21/22 Labs-03/23/22 NOV-05/04/22 med filled 04/26/21 Please review and advise. Carleen Mills LPN [facility] Miscellaneous Notes* Telephone Encounter - Carleen Mills LPN - 04/07/2022 1:20 PM EDT Patient phones requesting refills as follows: Pt changing Pharm Pending Prescriptions Disp Refills ALLOPURINOL 100 MG TABLET 180 tablet 1 Sig: Take 2 tablets by mouth once daily. For gout. NEERAJ: No JHONATAN-03/21/22 Labs-03/23/22 NOV-05/04/22 Please review and advise. Carleen Mills LPN documented in this [facility]07-01-2022 Miscellaneous Notes* Telephone Encounter - Carleen Mills LPN - 04/07/2022 1:17 PM EDT Patient phones requesting refills as follows: Changing Pharmacy. Pending Prescriptions Disp Refills PANTOPRAZOLE 40 MG TABLET,DELAYED RELEASE 60 tablet 2 Sig: Take 1 tablet by mouth twice daily. Take on empty stomach, 1/2 hr before meal. NEERAJ: No JHONATAN-03/21/22 Labs-03/23/22 NOV-none Please review and advise. Carleen Mills LPN documented in this [facility]Mer[facility]-2022 Miscellaneous Notes* Telephone Encounter - Carleen Mills LPN - 04/07/2022 1:15 PM EDT Patient phones requesting refills as follows: Pending Prescriptions Disp Refills COLCHICINE 0.6 MG TABLET 6 tablet 0 Sig: Take 2 tabs by mouth, followed by 1 tab one hour later for gout flare. May repeat in 1 week. NEERAJ: No JHONATAN-03/21/22 Labs-03/23/22 NOV-05/04/22 Please review and advise Carleen Mills LPN documented in this [facility]Mer[facility] Miscellaneous Notes* Telephone Encounter - Chayito Blackmon LPN - 03/24/2022 10:39 AM EDT Patient notified and voiced his understanding. * Telephone Encounter - Avelina Helm LPN - 03/24/2022 9:45 AM EDT ----- Message from Samuel Foy MD sent at 03/24/2022 9:18 AM EDT ----- Uric acid level has improved. Continue higher dose of allopurinol to prevent gout flares and stick to diet as discussed. Cholesterol in good range. Blood counts normal. No change to regimen. documented in this encounterMer[facility] Instructions* Patient Instructions* Samuel Foy MD - 03/21/2022 5:13 PM EDT Please come in for blood work in 1-2 days, and then a repeat 2 weeks after you restart your allopurinol at 200 mg daily. documented in this encounterMer[facility]06[facility]22 History of Present illness Narrative* Samuel Foy MD - 03/21/2022 5:04 PM EDT Chief Complaint Patient presents with: Immunizations HPI Kris Cox is a 71 year old male who presents here today for immunizations and possible gout flare up. Patient complaining of gout flare and pain on left great toe which started 4 days ago. States that his toe was red, very tender to touch, and swollen. Hurt too much to even put his shoe on. Denies injury. Admits to drinking more sweetened iced tea and eating more red meat. Taking his allopurinol as prescribed. Also requesting Lycera booster today. No complications with prior vaccination. Past medical history, appointments, medications, allergies reviewed. Previous Medical History PAST MEDICAL HISTORY Diagnosis Date AAA (abdominal aortic aneurysm) ([facility]) Dr. [facility]ani's es[facility] 2009 CAD (coronary artery disease) 2002 stress test abnormal Diverticulosis Duodenitis without mention of hemorrhage Erectile dysfunction Esophagitis, unspecified Gout History of colonoscopy HTN (hypertension) Hyperlipidemia Impaired fasting glucose Overweight (BMI 25.0-29.9) Vertigo Previous Surgical History PAST SURGICAL HISTORY Procedure Laterality Date CARDIAC CATH 04/30/2007 COLONOSCOPY FLX DX W/COLLJ SPEC WHEN PFRMD 10/25/2012 few diverticula - 10 year follow up COLONOSCOPY FLX DX W/COLLJ SPEC WHEN PFRMD 07/28/2020 Colonoscopy EGD 12/03/2009 dx barretts esophagus EGD 06/10/2009 h-pylori negative EGD BALLOON DILATION ESOPHAGUS <30 MM DIAM 01/30/2011 EGD TRANSORAL BIOPSY SINGLE/MULTIPLE 10/25/2012 duodenitis, gastric ulcer, gastritis, small hiatal hernia, multani's esophagitis EGD W/O [facility] SPEC VARICIES INJ 12/16/2021 ESOPHAGOGASTRODUODENOSCOPY TRANSORAL DIAGNOSTIC 07/28/2020 EGD EXPLORATORY SHOULDER SURGERY 1965 repair dislcoation. left FRACTURE SURGERY Left 1961 Fractured collar bone with surgery PAST SURGICAL HISTORY OF right and left meniscus surgeries of knee PAST SURGICAL HISTORY OF 2008 right middle finger trigger repair PAST SURGICAL HISTORY OF 08/02/2012 right ring trigger finger release PAST SURGICAL HISTORY OF 01/09/2014 Left 3rd finger trigger release TONSILLECTOMY HX Family History FAMILY HISTORY Problem Relation Age of Onset Cancer Mother liver Heart Father Lipids Father other (depression) Sister Multiple Sclerosis Brother Patient Allergies ALLERGIES No Known Allergies Current Medications Current Outpatient Medications on File Prior to Visit Medication Sig Naproxen SR (EC-NAPROSYN) 500 mg EC tablet Take 1 tablet by mouth twice daily as needed. TAKE 1 TABLET BY MOUTH TWICE DAILY NEEDED (FOR PAIN/INFLAMMATION). TAKE WITH FOOD. pantoprazole DR (PROTONIX) 40 mg tablet Take 1 tablet by mouth twice daily. Take on empty stomach, 1/2 hr before meal. lisinopril (ZESTRIL, PRINIVIL) 40 mg tablet Take 1 tablet by mouth once daily. allopurinol (ZYLOPRIM) 100 mg tablet Take 1 tablet by mouth once daily. For gout. metoprolol succinate ER (TOPROL XL) 100 mg Take 1 tablet by mouth once daily. atorvastatin (LIPITOR) 20 mg tablet Take 1 tablet by mouth once daily. For cholesterol meclizine (ANTIVERT) 25 mg tab Take 1 tablet by mouth twice daily as needed. TAKE 1 TABLET BY MOUTHAS NEEDED. USES FOR TRAVELING ONLY. aspirin, enteric coated (ASPIRIN, ENTERIC COATED) 81 mg EC tablet Take 81 mg by mouth once daily. (Patient not taking: Reported on 01/31/2022 ) No current facility-administered medications on file prior to visit. Social History Social History Tobacco Use Smoking status: Former Smoker Packs/day: 1.00 Years: 15.00 Pack years: 15.00 Types: Cigarettes Quit date: 06/08/2002 Years since quittin.7 Smokeless tobacco: Never Used Vaping Use Vaping Use: Never used Substance Use Topics Alcohol use: Yes Comment: very seldom, not even 1 drink per month Drug use: No Review of Symptoms REVIEW OF SYSTEMS See HPI EXAM: BP 128/84 Pulse (!) 53 Resp 16 Wt 76.7 kg (169 lb 3.2 oz) SpO2 97% BMI 26.50 kg/m General Appearance: Well appearing, alert, in no acute distress, well-hydrated, well nourished.. Skin: Skin color, texture, turgor normal, no suspicious rashes or lesions. Musculoskeletal: TTP over left 1st MTP joint with mild swelling. No warmth to touch. Normal ROM. . Health Maintenance List BP CONTROLLED (<130/80) Never done ADVANCE DIRECTIVE DISCUSSION Never done COVID-19 VACCINE(4 - Booster for Pfizer series) due on 11/21/2021 LDL CHOLESTEROL due on 12/09/2021 DEPRESSION SCREENING due on 12/13/2021 DTAP,TDAP,TD(2 - Td or Tdap) due on 03/21/2022 ANNUAL PCP TEAM CHRONIC DISEASE VISIT due on 11/04/2022 DIABETES SCREEN due on 11/04/2024 LIPID SCREEN due on 12/09/2025 COLORECTAL CANCER SCREENING due on 07/28/2030 ABDOMINAL AORTIC ANEURYSM SCREENING Completed INFLUENZA Completed HEPATITIS C SCREENING Completed SHINGRIX VACCINE Completed PNEUMOCOCCAL: 65+ Completed ASSESSMENT/PLAN: 1. 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 - ICD9: 274.01, ICD10: M10.072 (primary diagnosis) Will treat with colchicine as prescribed. Stick to gout diet and cut out sugary drinks, red meat. Increase allopurinol to 200 mg daily after he finishes the colchicine and symptoms resolve. Repeat uric acid level 2 weeks after increase. - URIC ACID BLOOD - CBC + DIFF - COLCHICINE 0.6 MG TABLET - URIC ACID BLOOD 2. Gout, unspecified cause, unspecified chronicity, unspecified site - ICD9: 274.9, ICD10: M10.9 - ALLOPURINOL 100 MG TABLET - URIC ACID BLOOD 3. Mixed hyperlipidemia - ICD9: 272.2, ICD10: E78.2 - to be determined upon return of lab results - Continue current medication. - Encouraged following a low fat, low cholesterol diet. - Discussed the benefits of regular aerobic exercise and weight loss. - LIPID PANEL, NONFASTING 4. Need for COVID-19 vaccine - ICD9: V04.89, ICD10: Z23 - PFIZER-BIONTECH COVID-19 VACCINE, AGE 12+ YR (MILLER TOP) Samuel Foy MD documented [facility] Miscellaneous Notes* Telephone Encounter - Avelina Helm LPN - 03/17/2022 11:17 AM EDT Patient phones requesting refills as follows: Pending Prescriptions Disp Refills PANTOPRAZOLE 40 MG TABLET,DELAYED RELEASE 60 tablet 2 Sig: Take 1 tablet by mouth twice daily. Take on empty stomach, 1/2 hr before meal. NEERAJ: No JHONATAN 11/04/21 NOV 03/21/22 Please review and advise. Avelina Helm LPN documented in this encounter[facility] Miscellaneous Notes* Telephone Encounter - Emma Pringle MA - 03/15/2022 8:17 AM EDT Patient has been identified by name and date of : Yes Pending Prescriptions Disp Refills LISINOPRIL 40 MG TABLET 90 tablet 1 Sig: Take 1 tablet by mouth once daily. NEERAJ: No RX INSTRUCTIONS: Patient aware RX will be sent to pharmacy. No need to notify patient. Emma Pringle MA Jhonatan: 10/2021 Nov: 03/21/2022 & 05/04/2022 Last refill; 09/2021 90 tablets 1 refill documented in [facility]26-[facility]22 NoteHNO ID: [id number] Author: Jorge Noonan MD Service: ? Author Type: Physician Type: Progress Notes Filed: 01/31/2022 3:36 PM Note Text: Patient referred by: Hina Carmona [address] [facility] [id number] HPI: This is a new patient consult from Dr. Carmona. He has a relevant medical hx of Multani's and diverticulitis. His Multani's has been followed with endoscopy and biopsy every 2 years, without any dysplasia. His acid reflux began at roughly age 39, which has since been managed effectively with medication. His Multani's was first diagnosed at age 49. He currently denies any difficulty with oral intake, including quick onset of fullness, nausea, and vomiting. He denies hematemesis, as well as melena and hematochezia. EGD on 12/16/21 significant for moderate duodenal stenosis, which was not traversed. EGD on 07/28/20 showed erythema, friability, and ulcerations in the first portion of the duodenum. The scope could not be advanced to the second portion of the duodenum at this time either. Biopsy of this was unremarkable. Last colonoscopy 9 years ago. Only finding on previous colonoscopy was a polyp, which was removed and pathology was negative. . PAST MEDICAL HISTORY Diagnosis Date - AAA (abdominal aortic aneurysm) (HCC) Dr. Araujo- - Multani's esophagus 2009 - CAD (coronary artery disease) 2002 stress test abnormal - Diverticulosis - Duodenitis without mention of hemorrhage - Erectile dysfunction - Esophagitis, unspecified - Gout - History of colonoscopy - HTN (hypertension) - Hyperlipidemia - Impaired fasting glucose - Overweight (BMI 25.0-29.9) - Vertigo PAST SURGICAL HISTORY Procedure Laterality Date - CARDIAC CATH 04/30/2007 - COLONOSCOPY FLX DX W/COLLJ SPEC WHEN PFRMD 10/25/2012 few diverticula - 10 year follow up - COLONOSCOPY FLX DX W/COLLJ SPEC WHEN PFRMD 07/28/2020 Colonoscopy - EGD 12/03/2009 dx barretts esophagus - EGD 06/10/2009 h-pylori negative - EGD BALLOON DILATION ESOPHAGUS <30 MM DIAM 01/30/2011 - EGD TRANSORAL BIOPSY SINGLE/MULTIPLE 10/25/2012 duodenitis, gastric ulcer, gastritis, small hiatal hernia, multani's esophagitis - EGD W/O [facility] SPEC VARICIES INJ 12/16/2021 - ESOPHAGOGASTRODUODENOSCOPY TRANSORAL DIAGNOSTIC 07/28/2020 EGD - EXPLORATORY SHOULDER SURGERY 1965 repair dislcoation. left - FRACTURE SURGERY Left 1961 Fractured collar bone with surgery - PAST SURGICAL HISTORY OF right and left meniscus surgeries of knee - PAST SURGICAL HISTORY OF 2008 right middle finger trigger repair - PAST SURGICAL HISTORY OF 08/02/2012 right ring trigger finger release - PAST SURGICAL HISTORY OF 01/09/2014 Left 3rd finger trigger release - TONSILLECTOMY HX FAMILY HISTORY Problem Relation Age of Onset - Cancer Mother liver - Heart Father - Lipids Father - Multiple Sclerosis Brother - other (depression) Sister Social History Tobacco Use - Smoking status: Former Smoker Packs/day: 1.00 Years: 15.00 Pack years: 15.00 Types: Cigarettes Quit date: 06/08/2002 Years since quittin.6 - Smokeless tobacco: Never Used Vaping Use - Vaping Use: Never used Substance Use Topics - Alcohol use: Yes Comment: very seldom, not even 1 drink per month - Drug use: No Current Outpatient Medications Medication Sig - pantoprazole DR (PROTONIX) 40 mg tablet Take 1 tablet by mouth twice daily. Take on empty stomach, 1/2 hr before meal. - allopurinol (ZYLOPRIM) 100 mg tablet Take 1 tablet by mouth once daily. For gout. - metoprolol succinate ER (TOPROL XL) 100 mg Take 1 tablet by mouth once daily. - lisinopril (ZESTRIL, PRINIVIL) 40 mg tablet Take 1 tablet by mouth once daily. - atorvastatin (LIPITOR) 20 mg tablet Take 1 tablet by mouth once daily. For cholesterol - meclizine (ANTIVERT) 25 mg tab Take 1 tablet by mouth twice daily as needed. TAKE 1 TABLET BY MOUTH NEEDED. USES FOR TRAVELING ONLY. - aspirin, enteric coated (ASPIRIN, ENTERIC COATED) 81 mg EC tablet Take 81 mg by mouth once daily. No current facility-administered medications for this visit. ALLERGIES No Known Allergies REVIEW OF SYSTEMS: GENERAL: No weight loss, malaise or fevers GI: Negative for abdominal pain, nausea , vomiting, diarrhea, constipation and signs of jaundice Positive for none PHYSICAL EXAM: There were no vitals taken for this visit. GENERAL APPEARANCE: Well appearing, alert, in no acute distress, well-hydrated, well nourished.. ABDOMEN: Normal abdominal exam NEURO: Alert, oriented x3, no asterixis, speech clear and articulate and [place] HEART: Normal LUNGS: Normal work of breathing on RA DATA: Diagnostic tests reviewed for today's visit: Most recent labs I spent a total of 20 minutes on the date of the service which included preparing to see the patient, [id number] patient care, completing clinical documentation, obtaining and/or reviewing separately obtained history, performi (more content not included)...[facility] 01-31-2022 Instructions* Patient Instructions* Jorge Noonan MD - 01/31/2022 3:10 PM EDT Please call if you do not hear from the GI doctor. documented in this encounterMer[facility]04-26-2022 History of Present illness Narrative* Jorge Noonan MD - 01/31/2022 2:31 PM EDT Patient referred by: Hina [address] [facility] [id number] HPI: This is a new patient consult from Dr. Carmona. He has a relevant medical hx of Multani's and diverticulitis. His Multani's has been followed with endoscopy and biopsy every 2 years, without any dysplasia. His acid reflux began at roughly age 39, which has since been managed effectively with medication. His Mulatni's was first diagnosed at age 49. He currently denies any difficulty with oral intake, including quick onset of fullness, nausea, and vomiting. He denies hematemesis, as well as melena and hematochezia. EGD on 12/16/21 significant for moderate duodenal stenosis, which was not traversed. EGD on 07/28/20 showed erythema, friability, and ulcerations in the first portion of the duodenum. The scope could not be advanced to the second portion of the duodenum at this time either. Biopsy of this was unremarkable. Last colonoscopy 9 years ago. Only finding on previous colonoscopy was a polyp, which was removed and pathology was negative. . PAST MEDICAL HISTORY Diagnosis Date AAA [facility]ab[facility] Multani's [facility] 2009 CAD (coronary artery disease) 2003 stress test abnormal Diverticulosis Duodenitis without mention of hemorrhage Erectile dysfunction Esophagitis, unspecified Gout History of colonoscopy HTN (hypertension) Hyperlipidemia Impaired fasting glucose Overweight (BMI 25.0-29.9) Vertigo PAST SURGICAL HISTORY Procedure Laterality Date CARDIAC CATH 04/30/2007 COLONOSCOPY FLX DX W/COLLJ SPEC WHEN PFRMD 10/25/2012 few diverticula - 10 year follow up COLONOSCOPY FLX DX W/COLLJ SPEC WHEN PFRMD 07/28/2020 Colonoscopy EGD 12/03/2009 dx barretts esophagus EGD 06/10/2009 h-pylori negative EGD BALLOON DILATION ESOPHAGUS <30 MM DIAM 01/30/2011 EGD TRANSORAL BIOPSY SINGLE/MULTIPLE 10/25/2012 duodenitis, gastric ulcer, gastritis, small hiatal hernia, multani's esophagitis EGD W/O [facility] SPEC VARICIES INJ 12/16/2021 ESOPHAGOGASTRODUODENOSCOPY TRANSORAL DIAGNOSTIC 07/28/2020 EGD EXPLORATORY SHOULDER SURGERY 1965 repair dislcoation. left FRACTURE SURGERY Left 1961 Fractured collar bone with surgery PAST SURGICAL HISTORY OF right and left meniscus surgeries of knee PAST SURGICAL HISTORY OF 2008 right middle finger trigger repair PAST SURGICAL HISTORY OF 08/02/2012 right ring trigger finger release PAST SURGICAL HISTORY OF 01/09/2014 Left 3rd finger trigger release TONSILLECTOMY HX FAMILY HISTORY Problem Relation Age of Onset Cancer Mother liver Heart Father Lipids Father Multiple Sclerosis Brother other (depression) Sister Social History Tobacco Use Smoking status: Former Smoker Packs/day: 1.00 Years: 15.00 Pack years: 15.00 Types: Cigarettes Quit date: 06/08/2002 Years since quittin.6 Smokeless tobacco: Never Used Vaping Use Vaping Use: Never used Substance Use Topics Alcohol use: Yes Comment: very seldom, not even 1 drink per month Drug use: No Current Outpatient Medications Medication Sig pantoprazole DR (PROTONIX) 40 mg tablet Take 1 tablet by mouth twice daily. Take on empty stomach, 1/2 hr before meal. allopurinol (ZYLOPRIM) 100 mg tablet Take 1 tablet by mouth once daily. For gout. metoprolol succinate ER (TOPROL XL) 100 mg Take 1 tablet by mouth once daily. lisinopril (ZESTRIL, PRINIVIL) 40 mg tablet Take 1 tablet by mouth once daily. atorvastatin (LIPITOR) 20 mg tablet Take 1 tablet by mouth once daily. For cholesterol meclizine (ANTIVERT) 25 mg tab Take 1 tablet by mouth twice daily as needed. TAKE 1 TABLET BY MOUTHAS NEEDED. USES FOR TRAVELING ONLY. aspirin, enteric coated (ASPIRIN, ENTERIC COATED) 81 mg EC tablet Take 81 mg by mouth once daily. No current facility-administered medications for this visit. ALLERGIES No Known Allergies REVIEW OF SYSTEMS: GENERAL: No weight loss, malaise or fevers GI: Negative for abdominal pain, nausea , vomiting, diarrhea, constipation and signs of jaundice Positive for none PHYSICAL EXAM: There were no vitals taken for this visit. GENERAL APPEARANCE: Well appearing, alert, in no acute distress, well-hydrated, well nourished.. ABDOMEN: Normal abdominal exam NEURO: Alert, oriented x3, no asterixis, speech clear and articulate and [place] HEART: Normal LUNGS: Normal work of breathing on RA DATA: Diagnostic tests reviewed for today's visit: Most recent labs I spent a total of 20 minutes on the date of the service which included preparing to see the patient, [id number] patient care, completing clinical documentation, obtaining and/or reviewing separately obtained history, performing a medically appropriate examination, counseling and educating the pat ient/family/caregiver, ordering medications, tests, or procedures, communicating with other HCPs (not separately reported), independently interpreting results (not separately reported) and communicating results to the patient/family/caregiver. . Greater than 50% of the direct patient contact time was spent in counseling or coordination of care. Medical Decision Making ASSESSMENT / PLAN: Duodenal stricture likely 2/2 to ulceration identified in 2019. - continue Multani's surveillance with Dr. Carmona - recommend EGD in 6 months by wireless retail manager for surveillance of duodenal stricture and possible dilation at that time - instructed to present sooner if symptoms of fullness, nausea, or vomiting, as well as hematemesis, hematochezia, or melena Lorenzo Lai MD Please Note: This office note has been created using LessThan3, a speech recognition software program, and may contain errors including punctuation, grammar, spelling, gender, and inappropriate words or phrases that pertain to the sytem. Attending Note I personally saw and examined the patient. I reviewed the resident's note. I agree with the resident's assessment and plan with the following revisions and/or additions: Benign appearing duodenal stricture seen in 2019. I will send him to GI in [place] for possibilities of duodenal dilatation. Signature: Jorge Noonan MD Date: 01/31/2022 Time: 3:36 PM documented in this encounterMer[facility]04-01-2022 Miscellaneous Notes* Telephone Encounter - Bibi Gee RN - 01/06/2022 11:[address] Jorge Noonan's office ([phone]) and spoke with Mi. Mi wanted to verify that I wascalling the correct office, since Kasey's telephone encounter states that they were referring to GI and Dr. Noonan is a general surgeon, I advised that yes, the referral was to Dr. Noonan for a surgical co nsultation. Mi asked if it was okay, for her to call the patient and schedule the appointment, because she would need to speak with Dr. Noonan is booking out quite far. I advised that it would be fine. Bibi Gee RN * Telephone Encounter - Kasey Babcock PA-C - 01/06/2022 8:[address] Carmona would like this patient to see Dr. Blas Noonan at [facility] for workup of his duodenal stricture. Can you please facilitate appointment? Spoke with patient and he is aware of referral and that he will be contacted with appointment * Telephone Encounter - Kasey Babcock PA-C - 12/30/2021 3:57 PM EDT Left message for patient to call office. After further review of endoscopy images with Dr. Carmona, she would like to refer patient to [facility] for further workup of duodenal stricture. documented in this encounterMer[facility]12-20-2021 History of Present illness Narrative* Robb Portillo RT(R) - 09/26/2021 3:20 PM EST Radiology Service Progress Note PATIENT NAME: Kris Cox DATE OF SERVICE: September 26, 2021 TIME: 3:19 PM PATIENT IDENTITY VERIFICATION COMPLETED USING TWO (2) IDENTIFIERS: Name and Date of confirmedby patient verbally. FALL SCREENING: Has the patient had 2 falls in the last year or 1 fall with injury or currently using an Ambulatory Assistive Device (Walker, Cane, Wheelchair, Crutches, etc.)? No PATIENT GENDER DATA: Male PATIENT RELEVANT IMPLANT DATA REVIEWED: Yes RADIOLOGY DEPARTMENT: General X-ray: Exam(s) Completed: Chest X-Ray PERIPHERAL IV DATA: Not applicable SIGNED BY: RT Anderson(Candice) September 26, 2021 3:19 PM documented in this encounterMer[facility]Evaluation note* Diagnosis Screening for nephropathy- Primary Abnormal findings on diagnostic imaging of other parts of digestive tract [facility] Diagnosis Duodenal stricture- Primary Other obstruction of duodenum documented [facility]* Diagnosis Essential hypertension Unspecified essential hypertension documented in this encounter [facility] note* Diagnosis 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- Primary Gout, unspecified cause, unspecified chronicity, unspecified site Mixed hyperlipidemia Need for COVID-19 vaccine [facility] this [facility]* Diagnosis Onset Date Resolution Status Multani's esophagus acute Duodenal disorder acute GERD (gastroesophageal reflux disease) acute 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 [facility]* Diagnosis Gout, unspecified cause, unspecified chronicity, unspecified site documented [facility] this [facility]* Diagnosis Gout, unspecified cause, unspecified chronicity, unspecified site documented [facility] this [facility]* Diagnosis Abdominal aortic aneurysm (AAA) without rupture (HCC) documented in this encounter [facility] note* Diagnosis Abdominal aortic aneurysm (AAA) without rupture (HCC)- Primary 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* Diagnosis Essential hypertension Unspecified essential hypertension [facility]* Diagnosis Encounter for other preprocedural examination- Primary Infrarenal abdominal aortic aneurysm (AAA) without rupture Screening for nephropathy documented [facility]* Diagnosis Essential hypertension Unspecified essential hypertension [facility]* Diagnosis Infrarenal abdominal aortic aneurysm (AAA) without rupture- Primary documented in this encounter [facility] noteNo assessment information availableWEast [facility] Work Phone: Evaluation note* Diagnosis Gastrointestinal hemorrhage, unspecified gastrointestinal hemorrhage type- Primary Diarrhea, unspecified type documented [facility] this encounter [facility]* Diagnosis 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* Diagnosis Abdominal aortic aneurysm (AAA) without rupture, unspecified part (HCC)- Primary documented [facility]* Diagnosis Gout, unspecified cause, unspecified chronicity, unspecified site documented [facility]* Diagnosis Infrarenal abdominal aortic aneurysm (AAA) without rupture (HCC)- Primary [facility] Diagnosis APPOINTMENT CANCELLED- Primary [facility] Diagnosis Essential hypertension Unspecified essential hypertension documented [facility] Diagnosis Gout, unspecified cause, unspecified chronicity, unspecified site documented 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 Diagnosis Trigger index finger of right hand- Primary Trigger finger (acquired) Trigger index finger of right hand Trigger finger (acquired) documented [facility] Diagnosis Trigger index finger of right hand- Primary Trigger finger (acquired) Trigger index finger of right hand Trigger finger (acquired) documented [facility] Diagnosis Trigger index finger of right hand- Primary Trigger finger (acquired) documented [facility] Diagnosis Encounter for other preprocedural examination documented [facility] this [facility] Diagnosis Encounter for other preprocedural examination- Primary documented [facility] Diagnosis Infrarenal abdominal aortic aneurysm (AAA) without rupture (HCC)- Primary [facility] Diagnosis Encounter for other preprocedural examination documented [facility] Diagnosis Infrarenal abdominal aortic aneurysm (AAA) without rupture (HCC)- Primary documented [facility] Diagnosis Essential hypertension Unspecified essential hypertension documented [facility] Diagnosis Infrarenal abdominal aortic aneurysm (AAA) without rupture (HCC)- Primary [facility] Diagnosis Gout, unspecified cause, unspecified chronicity, unspecified site [facility] this [facility] Diagnosis Essential hypertension- Primary Unspecified essential hypertension Anemia, unspecified type Gout, unspecified cause, unspecified chronicity, unspecified site Screening for depression 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 Diagnosis Essential hypertension Unspecified essential hypertension documented in this encounter [facility] note* Diagnosis Acute cough- Primary URI, acute Acute upper respiratory infections of unspecified site Acute cough [facility] this [facility] Diagnosis Gout, unspecified cause, unspecified chronicity, unspecified site documented [facility] this 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 Abdominal aortic aneurysm (AAA) without rupture, unspecified part (HCC) Acute cough [facility] this [facility] Diagnosis Preoperative examination- Primary Preoperative examination, unspecified Gastroesophageal reflux disease, unspecified whether esophagitis present Primary hypertension Unspecified essential hypertension Mixed hyperlipidemia 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 Abdominal aortic aneurysm (AAA) without rupture, unspecified part (HCC) Diarrhea, unspecified type- Primary documented in this encounter [facility] note* Diagnosis Preoperative examination- Primary Preoperative examination, unspecified Gastroesophageal reflux disease, unspecified whether esophagitis present Primary hypertension Unspecified essential hypertension Mixed hyperlipidemia 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 Abdominal aortic aneurysm (AAA) without rupture, unspecified part (HCC) Essential hypertension- Primary Unspecified essential hypertension Gout, unspecified cause, unspecified chronicity, unspecified site Infrarenal abdominal aortic aneurysm (AAA) without rupture (HCC) Mixed hyperlipidemia 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, unspecified vessel or lesion type Encounter for immunization Need for other specified prophylactic vaccination against single bacterial disease documented in this encounter [facility] note* Diagnosis Preoperative examination- Primary Preoperative examination, unspecified Gastroesophageal reflux disease, unspecified whether esophagitis present Primary hypertension Unspecified essential hypertension Mixed hyperlipidemia 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 Abdominal aortic aneurysm (AAA) without rupture, unspecified part (HCC) Abdominal aortic aneurysm (AAA) without rupture, unspecified part (HCC)- Primary documented in this encounter [facility] note* Diagnosis Preoperative examination- Primary Preoperative examination, unspecified Gastroesophageal reflux disease, unspecified whether esophagitis present Primary hypertension Unspecified essential hypertension Mixed hyperlipidemia 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 Abdominal aortic aneurysm (AAA) without rupture, unspecified part (HCC) Essential hypertension Unspecified essential hypertension documented in this encounter [facility] note* Diagnosis Preoperative examination- Primary Preoperative examination, unspecified Gastroesophageal reflux disease, unspecified whether esophagitis present Primary hypertension Unspecified essential hypertension Mixed hyperlipidemia 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 Abdominal aortic aneurysm (AAA) without rupture, unspecified part (HCC) Abdominal aortic aneurysm (AAA) without rupture, unspecified part (HCC) documented in this encounter [facility] note* Diagnosis Preoperative examination- Primary Preoperative examination, unspecified Gastroesophageal reflux disease, unspecified whether esophagitis present Primary hypertension Unspecified essential hypertension Mixed hyperlipidemia 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 Abdominal aortic aneurysm (AAA) without rupture, unspecified part (HCC) RSV infection- Primary Respiratory syncytial virus (RSV) Nausea and vomiting, unspecified vomiting type Gastroesophageal reflux disease, unspecified whether esophagitis present Coffee ground emesis Hematemesis History of gastric ulcer Personal history of other diseases of digestive system documented in this encounter [facility] note* Diagnosis Preoperative examination- Primary Preoperative examination, unspecified Gastroesophageal reflux disease, unspecified whether esophagitis present Primary hypertension Unspecified essential hypertension Mixed hyperlipidemia 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 Abdominal aortic aneurysm (AAA) without rupture, unspecified part (HCC) Gout, unspecified cause, unspecified chronicity, unspecified site documented in this encounter [facility] note* Diagnosis Preoperative examination- Primary Preoperative examination, unspecified Gastroesophageal reflux disease, unspecified whether esophagitis present Primary hypertension Unspecified essential hypertension Mixed hyperlipidemia 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 Abdominal aortic aneurysm (AAA) without rupture, unspecified part (HCC) History of abdominal aortic aneurysm (AAA) repair- Primary documented in this encounter [facility] note* Diagnosis Preoperative examination- Primary Preoperative examination, unspecified Gastroesophageal reflux disease, unspecified whether esophagitis present Primary hypertension Unspecified essential hypertension Mixed hyperlipidemia 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 Abdominal aortic aneurysm (AAA) without rupture, unspecified part Primary hypertension- Primary Unspecified essential hypertension Mixed hyperlipidemia Encounter for immunization Need for other specified prophylactic vaccination against single bacterial disease 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 Gastroesophageal reflux disease, unspecified whether esophagitis present Multani's esophagus without dysplasia Multani's esophagus Impaired fasting glucose Overweight (BMI 25.0-29.9) Overweight Abdominal aortic aneurysm (AAA) without rupture, unspecified part History of abdominal aortic aneurysm (AAA) repair documented in this encounter [facility] note* Diagnosis Preoperative examination- Primary Preoperative examination, unspecified Gastroesophageal reflux disease, unspecified whether esophagitis present Primary hypertension Unspecified essential hypertension Mixed hyperlipidemia 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 [id number] year old man with known small aneurysm. Last measured 4.9cm on CTA. Today measures 4.9cm on duplex. I spoke to him on the phone. He is well and has had no significant changes to his health since we last spoke.-[facility] Work Phone: History of Present illness [id number] year old man with known small aneurysm. Last measured 4.9cm on CTA. Today measures 4.9cm on duplex. I spoke to him on the phone. He is well and has had no significant changes to his health since we last spoke.[facility] Work Phone: Hospital Discharge instructions Additional Instructions Follow-up with Dr. Moran or Dr. Carmona for possible repeat colonoscopy for continued bleeding. Return with rectal hemorrhage, new or worsening symptoms.[facility] Work Phone: Reason for referral (narrative)* Diagnostic Procedure Only (Urgent) - Closed Specialty Diagnoses / Procedures Referred By Contac t Referred To Contact US IMAGING Diagnoses Abdominal aortic aneurysm (AAA) without rupture (HCC) Procedures US DOPPLER AORTA DUP-SCAN ARTL QUYEN ABDL/PEL/SCROT&/RPR ORGN LMT Samuel Foy MD [address] [place] [address] Us Imaging Referral ID Status Reason Start Date Expiration Date V isits Requested Visits Authorized [id number] Closed Auto-Generate d Referral 05/04/2022 06/03/2023 1 1 * Diagnostic Procedure Only (Urgent) - Closed Specialty Diagnoses / Procedures Referred By Contac t Referred To Contact US IMAGING Diagnoses Abdominal aortic aneurysm (AAA) without rupture (HCC) Procedures US ABD AORTA US RETROPERITONEAL REAL TIME W/IMAGE LIMITED Samuel Foy MD [address] [place] [address] Us Imaging Referral ID Status Reason Start Date Expiration Date V isits Requested Visits Authorized [id number] Closed Auto-Generate d Referral 05/04/2022 06/03/2023 1 1 [facility] for referral (narrative)* Diagnostic Procedure Only (Urgent) - Closed Specialty Diagnoses / Procedures Referred By Contac t Referred To Contact US IMAGING Diagnoses Abdominal aortic aneurysm (AAA) without rupture (HCC) Procedures US DOPPLER AORTA DUP-SCAN ARTL QUYEN ABDL/PEL/SCROT&/RPR ORGN LMT Samuel Foy MD [address] [place] [address] Us Imaging Referral ID Status Reason Start Date Expiration Date V isits Requested Visits Authorized [id number] Closed Auto-Generate d Referral 05/04/2022 06/03/2023 1 1 * Diagnostic Procedure Only (Urgent) - Closed Specialty Diagnoses / Procedures Referred By Contac t Referred To Contact US IMAGING Diagnoses Abdominal aortic aneurysm (AAA) without rupture (HCC) Procedures US ABD AORTA US RETROPERITONEAL REAL TIME W/IMAGE LIMITED Samuel Foy MD [address] [place] [address] Us Imaging Referral ID Status Reason Start Date Expiration Date V isits Requested Visits Authorized [id number] Closed Auto-Generate d Referral 05/04/2022 06/03/2023 1 1 * Consult, Test, Treat (Routine) - Pending Review Specialty Diagnoses / Procedures Referred By Miguelangelac t Referred To Contact Vascular Surgery Diagnoses Abdominal aortic aneurysm (AAA) without rupture (HCC) Procedures CONSULT TO VASCULAR SURGERY OFFICE/OUTPATIENT [facility] MDM 60-74 MINUTES Samuel Foy MD [address] [place] [address] Referral ID Status Reason Start Date Expiration Date Visits Requested Visits Authorized [id number] Pending Review PCP Requested Referral 05/04/2022 05/04/2023 1 1 [facility] for referral (narrative)* Diagnostic Procedure Only (Routine) - Closed Specialty Diagnoses / Procedures Referred By Contac t Referred To Contact CT IMAGING Diagnoses Encounter for other preprocedural examination Procedures CTA ABD/PEL WO/W IVCON CT ANGIO ABD&PLVIS CNTRST MTRL W/WO CNTRST Naif Diaz MD [address] [place] [id number] [place] [address] Referral ID Status Reason Start Date Expiration Date Visits Re quested Visits Authorized [id number] Closed 07/26/2023 09/24/2023 1 1 [facility] for referral (narrative)* Diagnostic Procedure Only (Routine) - Authorized Specialty Diagnoses / Procedures Referred By Shantelle t Referred To Contact MOLECULAR & FUNCTIONAL IMAGING Diagnoses Encounter for other preprocedural examination Procedures NM CARDIAC PERF STRESS/PHARM MYOCARDIAL SPECT MULTIPLE STUDIES Naif Graves MD [address] [place] [address] Molecular & Functional Imaging [address] [place] [address] Referral ID Status Reason Start Date Expiration Date Visits Requested Visits Authorized [id number] Authorized Auto-Generat ed Referral 10/16/2023 2 2 [facility] for referral (narrative)* Diagnostic Procedure Only (Routine) - Closed Specialty Diagnoses / Procedures Referred By Shantelle bucio Referred To Contact MOLECULAR & FUNCTIONAL IMAGING Diagnoses Encounter for other preprocedural examination Procedures NM CARDIAC PERF STRESS/PHARM MYOCARDIAL SPECT MULTIPLE STUDIES Naif Graves MD [address] [place] [address] Molecular & Functional Imaging [address] [place] [address] Referral ID Status Reason Start Date Expiration Date V isits Requested Visits Authorized [id number] Closed Auto-Generate d Referral 08/17/2023 10/16/2023 2 2 [facility] for referral (narrative)No reason for referral information [facility]WEast [facility] Work Phone: Reason for visit Narrative* Diagnostic Procedure Only (Routine) - Closed Specialty Diagnoses / Procedures Referred By Contac t Referred To Contact MOLECULAR & FUNCTIONAL IMAGING Diagnoses Encounter for other preprocedural examination Procedures NM CARDIAC PERF STRESS/PHARM MYOCARDIAL SPECT MULTIPLE STUDIES Naif Graves MD [address] [facility] [address] [place] [address] Molecular & Functional Imaging [address] [place] [id number] Referral ID Status Reason Start Date Expiration Date V isits Requested Visits Authorized [id number] Closed Auto-Generate d Referral 08/17/2023 10/16/2023 [address] [facility] Chief Complaint * A telephone visit (audio only) between the patient (at the originating site) and the provider (at the distant site) was utilized to provide this telehealth service. * Verbal consent was requested and obtained from KRIS COX on this date, 04/14/2021 02:20 PM , for a telehealth visit. * AAA surveillance * A telephone visit (audio only) between the patient (at the originating site) and the provider (at the distant site) was utilized to provide this telehealth service. * Verbal consent was requested and obtained from KRIS COX on this date, 04/14/2021 02:20 PM , for a telehealth visit. * AAA surveillance Summary Purpose Family History Relationship Condition Age at Onset Recorded Date/T rachel mother Malignant neoplasm of colon Unknown Relationship Condition Age at Onset Recorded Date/T rachel mother Malignant neoplasm of colon Unknown father Myocardial infarction Unknown Cardiac disease Unknown Hypertension Unknown High blood cholesterol Unknown sister Myocardial infarction Unknown Depression Unknown Disorder of respiratory system Unknown Advance Directives Documents on File Type Date Recorded Patient Ticket Seller Expl anation Advance Directive(s) 12/16/2021 8:54 AM Advance Directive(s) 07/28/2020 9:23 AM Advance Directive(s) 06/26/2019 12:07 PM Advance Directive(s) 06/17/2019 3:32 PM Documents on File Type Date Recorded Patient Ticket Seller Expl anation Advance Directive(s) 12/16/2021 8:54 AM Advance Directive(s) 07/28/2020 9:23 AM Advance Directive(s) 06/26/2019 12:07 PM Advance Directive(s) 06/17/2019 3:32 PM Advance Directive Response Recorded Date/ Time Living Will Yes January 24, 2017 3:42pm Power of Steam Meter Reader Yes January 24 3:42pm Advance Directive Response Recorded Date/ Time Name of Medical Power of Steam Meter Reader DAUGHTER April 06, 2022 9:19am Living Will Yes April 06, 2022 9:19am Power of Steam Meter Reader Yes April 06 9:19am Advance Directive Response Recorded Date/ Time Living Will Yes October 07 11:30am Power of Steam Meter Reader Yes October 07, 2022 11:30am Name of Medical Power of Steam Meter Reader Rhonda PAZ, daughter October 07, 2022 11:30am Documents on File Type Date Recorded Patient Ticket Seller Expl anation Advance Directive(s) 09/05/2023 5:53 AM Documents on File Type Date Recorded Patient Ticket Seller Expl anation Advance Directive(s) 09/05/2023 5:53 AM Advance Directive Response Recorded Date/ Time Living Will Yes October 26 11:05pm Do you have a Healthcare Pow er of Steam Meter Reader? Yes October 26, 2024 11:05pm Name of Medical Power of Steam Meter Reader daughter anabelle elliott October 26, 2024 11:05pm Living Will Yes November 28 025 11:17am Do you have a Healthcare Pow er of Steam Meter Reader? Yes November 28, 2024 11:17am Name of Medical Power of Steam Meter Reader DTR November 28, 2024 11:17am Reason for Referral Specialty Diagnoses / Procedures Referred By Contac t Referred To Contact CT IMAGING Diagnoses Abnormal findings on diagnostic imaging of other parts of digestive tract Procedures CT ABD/PEL W IVCON CT ABD & PELVIS W/CONTRAST Hina Carmona MD [address] [place] [address] Ct Imaging Referral ID Status Reason Start Date Expiration Date Visits Requested Visits Authorized [id number] Pending Review Auto-Generat ed Referral 01/09/2022 02/08/2023 1 1 Specialty Diagnoses / Procedures Referred By Contac t Referred To Contact Gastroenterology Diagnoses Duodenal stricture Procedures CONSULT TO GASTROENTEROLOGY Jorge Noonan MD [address] [facility] [address] [place] [address] Carlton Moran, DO [address] [address] Referral ID Status Reason Start Date Expiration Date V isits Requested Visits Authorized [id number] Ref Not Required 01/31/2022 05/01/2022 3 3 Specialty Diagnoses / Procedures Referred By Contac t Referred To Contact Diagnoses 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 Samuel Foy MD [address] [place] [address] Referral ID Status Reason Start Date Expiration Date V isits Requested Visits Authorized [id number] Pending Review 1 1 Specialty Diagnoses / Procedures Referred By Contac t Referred To Contact CT IMAGING Diagnoses Encounter for other preprocedural examination Infrarenal abdominal aortic aneurysm (AAA) without rupture Procedures CTA ABD/PEL W IVCON CT ANGIO ABD&PLVIS CNTRST MTRL W/WO CNTRST Samantha Mcmahon, DO [address] [place] [address] Ct Imaging Referral ID Status Reason Start Date Expiration Date Visits Requested Visits Authorized [id number] Authorized Auto-Generat ed Referral 2 09/19/2022 2 2 Specialty Diagnoses / Procedures Referred By Contac t Referred To Contact CT IMAGING Diagnoses Abdominal aortic aneurysm (AAA) without rupture, unspecified part (HCC) Procedures CTA ABD/PEL WO/W IVCON CT ANGIO ABD&PLVIS CNTRST MTRL W/WO CNTRST Naif Diaz MD [address] [place] [address] Ct Imaging Referral ID Status Reason Start Date Expiration Date Visits Requested Visits Authorized [id number] Pending Review Auto-Generat ed Referral 01/16/2023 02/15/2024 1 1 Specialty Diagnoses / Procedures Referred By Contac t Referred To Contact CT IMAGING Diagnoses Abdominal aortic aneurysm (AAA) without rupture, unspecified part (HCC) Procedures CTA CHEST (NONGATED) WO/W IVCON CT ANGIOGRAPHY CHEST W/CONTRAST/NONCONTRAST Naif Graves MD [address] [place] [address] Ct Imaging Referral ID Status Reason Start Date Expiration Date Visits Requested Visits Authorized [id number] Pending Review Auto-Generat ed Referral 01/16/2023 02/15/2024 1 1 Specialty Diagnoses / Procedures Referred By Contac t Referred To Contact CT IMAGING Diagnoses Abdominal aortic aneurysm (AAA) without rupture, unspecified part (HCC) Procedures CTA ABD/PEL WO/W IVCON CT ANGIO ABD&PLVIS CNTRST MTRL W/[place] [address] [place] [address] [place] [address] Referral ID Status Reason Start Date Expiration Date Visits Requested Visits Authorized [id number] Pending Review Auto-Generat ed Referral 09/21/2025 1 1 Referral ID Status Reason Start Date Expiration Date V isits Requested Visits Authorized [id number] Closed Auto-Generate d Referral 10/08/2024 10/07/2025 1 1 Specialty Diagnoses / Procedures Referred By Contac t Referred To Contact Gastroenterology Diagnoses RSV infection Gastroesophageal reflux disease, unspecified whether esophagitis present Procedures CONSULT TO GASTROENTEROLOGY OFFICE/OUTPATIENT [facility] 60 MINUTES Samuel Foy MD [address] [place] [address] Referral ID Status Reason Start Date Expiration Date Visits Requested Visits Authorized [id number] Authorized PCP Requested Referral 11/04/2024 11/04/2025 1 1 Chief Complaint and Reason for Visit Chief Complaint CONSU DUODENAL STENOSIS Reason for Visit Multani's esophagus Duodenal disorder GERD (gastroesophageal reflux disease) Chief Complaint GI BLEED Chief Complaint Admit Date nvd October 26, 2024 1 0:04pm Acid reflux November 19, 2024 9:41am Test Result December 16, 2024 1:2 2pm EARLY SATIETY, HB January 19, 2025 8:5 1am Reason for Visit Admit Date Multani's esophagus November 19, 2024 9:41am GERD (gastroesophageal reflux disease) F ebruary 2024 9:41am Multani's esophagus December 04, 2024 9:42am GERD (gastroesophageal reflux disease) F ebruary 2024 9:42am Multani's esophagus December 16, 2024 1:2 2pm Early satiety December 16, 2024 1:2 2pm Heartburn December 16, 2024 1:2 2pm Medications Administered Section Inactive Administered Medications - up to 3 most recent administrations Medication Order MAR Action Action Date Dose Rate Site betamethasone acetate-betamethasone sodium phosphate 3 mg injection (CELESTONE) 3 mg, Injection - FOR ORTHO USE ONLY, ONE TIME INJECTION, 1 dose, Starting on Sun06/04/23 at 0949, Until Sun06/04/23 at 0949 Given 06/04/2023 9:49 AM EDT 3 mg Hand, Right lidocaine (PF) 10 mg/mL (1 %) 0.5 mL injection (XYLOCAINE) 0.5 mL, Injection - FOR ORTHO USE ONLY, ONE TIME INJECTION, 1 dose, Starting on Sun06/04/23 at 0949, Until Sun06/04/23 at 0949 Given 06/04/2023 9:49 AM EDT 0.5 mL Hand, Right Inactive Administered Medications - up to 3 most recent administrations Medication Order MAR Action Action Date Dose Rate Site regadenoson 0.4 mg injection (LEXISCAN) 0.4 mg, INTRAVENOUS, ONCE, 1 dose, On Sun08/21/23 at 1000, Give 0.4 mg (5 mL) over ~10 seconds, followed immediately by a 5 mL saline flush. Wait 10-20 seconds, then administer the radionuclide myocardial perfusion imaging agent. Given 08/21/2023 9:15 AM EST 0.4 mg Additional Source Comments (unrecognized sect ion and content) No Status Records FoundNo Status Records FoundNo Status Records FoundNo Status Records FoundNo Status Records FoundNo Status Records FoundNo Status Records Found INFORMATION SOURCE (unrecogn ized section and content) DATE CREATED AUTHOR 04/15/2021 [facility] DATE CREATED AUTHOR AUTHOR'S ORGANIZ ATION 02/06/2022 [facility] DATE CREATED AUTHOR AUTHOR'S ORGANIZ ATION 08/05/2022 [facility] DATE CREATED AUTHOR AUTHOR'S ORGANIZ ATION 08/22/2023 [facility] DATE CREATED AUTHOR AUTHOR'S ORGANIZ ATION 10/22/2023 [facility] DATE CREATED AUTHOR AUTHOR'S ORGANIZ ATION 01/14/2025 [facility] DATE CREATED AUTHOR AUTHOR'S ORGANIZ ATION 01/25/2025 [facility] Source Comments (unrecognize d section and content) In the event this informatio n is protected by the Federal Confidentiality of Alcohol and Drug Abuse Patient Records regulations: The Federal rules restrict any use of the information to criminally investigate or prosecute any alcohol or drug abuse patient.[facility] the event this information is protected by the Federal Confidentiality of Alcohol and Drug Abuse Patient Records regulations: The Federal rules restrict any use of the information to criminally investigate or prosecute any alcohol or drug abuse patient.[facility] the event this information is protected by the Federal Confidentiality of Alcohol and Drug Abuse Patient Records regulations: The Federal rules restrict any use of the information to criminally investigate or prosecute any alcohol or drug abuse patient.[facility]In the event this information is protected by the Federal Confidentiality of Alcohol and Drug Abuse Patient Records regulations: The Federal rules restrict any use of the information to criminally investigate or prosecute any alcohol or drug abuse patient.[facility]In the event this information is protected by the Federal Confidentiality of Alcohol and Drug Abuse Patient Records regulations: The Federal rules restrict any use of the information to criminally investigate or prosecute any alcohol or drug abuse patient.[facility] HospitalIn the event this information is protected by the Federal Confidentiality of Alcohol and Drug Abuse Patient Records regulations: The Federal rules restrict any use of the information to criminally investigate or prosecute any alcohol or drug abuse patient.[facility] HospitalIn the event this information is protected by the Federal Confidentiality of Alcohol and Drug Abuse Patient Records regulations: The Federal rules restrict any use of the information to criminally investigate or prosecute any alcohol or drug abuse patient.[facility] HospitalIn the event this information is protected by the Federal Confidentiality of Alcohol and Drug Abuse Patient Records regulations: The Federal rules restrict any use of the information to criminally investigate or prosecute any alcohol or drug abuse patient.[facility] the event this information is protected by the Federal Confidentiality of Alcohol and Drug Abuse Patient Records regulations: The Federal rules restrict any use of the information to criminally investigate or prosecute any alcohol or drug abuse patient.[facility] HospitalIn the event this information is protected by the Federal Confidentiality of Alcohol and Drug Abuse Patient Records regulations: The Federal rules restrict any use of the information to criminally investigate or prosecute any alcohol or drug abuse patient.[facility] HospitalIn the event this information is protected by the Federal Confidentiality of Alcohol and Drug Abuse Patient Records regulations: The Federal rules restrict any use of the information to criminally investigate or prosecute any alcohol or drug abuse patient.[facility] the event this information is protected by the Federal Confidentiality of Alcohol and Drug Abuse Patient Records regulations: The Federal rules restrict any use of the information to criminally investigate or prosecute any alcohol or drug abuse patient.[facility] HospitalIn the event this information is protected by the Federal Confidentiality of Alcohol and Drug Abuse Patient Records regulations: The Federal rules restrict any use of the information to criminally investigate or prosecute any alcohol or drug abuse patient.[facility] HospitalIn the event this information is protected by the Federal Confidentiality of Alcohol and Drug Abuse Patient Records regulations: The Federal rules restrict any use of the information to criminally investigate or prosecute any alcohol or drug abuse patient.[facility] HospitalIn the event this information is protected by the Federal Confidentiality of Alcohol and Drug Abuse Patient Records regulations: The Federal rules restrict any use of the information to criminally investigate or prosecute any alcohol or drug abuse patient.[facility] HospitalIn the event this information is protected by the Federal Confidentiality of Alcohol and Drug Abuse Patient Records regulations: The Federal rules restrict any use of the information to criminally investigate or prosecute any alcohol or drug abuse patient.[facility] HospitalIn the event this information is protected by the Federal Confidentiality of Alcohol and Drug Abuse Patient Records regulations: The Federal rules restrict any use of the information to criminally investigate or prosecute any alcohol or drug abuse patient.[facility] HospitalIn the event this information is protected by the Federal Confidentiality of Alcohol and Drug Abuse Patient Records regulations: The Federal rules restrict any use of the information to criminally investigate or prosecute any alcohol or drug abuse patient.[facility] HospitalIn the event this information is protected by the Federal Confidentiality of Alcohol and Drug Abuse Patient Records regulations: The Federal rules restrict any use of the information to criminally investigate or prosecute any alcohol or drug abuse patient.[facility] HospitalIn the event this information is protected by the Federal Confidentiality of Alcohol and Drug Abuse Patient Records regulations: The Federal rules restrict any use of the information to criminally investigate or prosecute any alcohol or drug abuse patient.[facility] HospitalIn the event this information is protected by the Federal Confidentiality of Alcohol and Drug Abuse Patient Records regulations: The Federal rules restrict any use of the information to criminally investigate or prosecute any alcohol or drug abuse patient.[facility] HospitalIn the event this information is protected by the Federal Confidentiality of Alcohol and Drug Abuse Patient Records regulations: The Federal rules restrict any use of the information to criminally investigate or prosecute any alcohol or drug abuse patient.[facility] HospitalIn the event this information is protected by the Federal Confidentiality of Alcohol and Drug Abuse Patient Records regulations: The Federal rules restrict any use of the information to criminally investigate or prosecute any alcohol or drug abuse patient.[facility] HospitalIn the event this information is protected by the Federal Confidentiality of Alcohol and Drug Abuse Patient Records regulations: The Federal rules restrict any use of the information to criminally investigate or prosecute any alcohol or drug abuse patient.[facility] HospitalIn the event this information is protected by the Federal Confidentiality of Alcohol and Drug Abuse Patient Records regulations: The Federal rules restrict any use of the information to criminally investigate or prosecute any alcohol or drug abuse patient.[facility] HospitalIn the event this information is protected by the Federal Confidentiality of Alcohol and Drug Abuse Patient Records regulations: The Federal rules restrict any use of the information to criminally investigate or prosecute any alcohol or drug abuse patient.[facility] HospitalIn the event this information is protected by the Federal Confidentiality of Alcohol and Drug Abuse Patient Records regulations: The Federal rules restrict any use of the information to criminally investigate or prosecute any alcohol or drug abuse patient.[facility] HospitalIn the event this information is protected by the Federal Confidentiality of Alcohol and Drug Abuse Patient Records regulations: The Federal rules restrict any use of the information to criminally investigate or prosecute any alcohol or drug abuse patient.[facility] HospitalIn the event this information is protected by the Federal Confidentiality of Alcohol and Drug Abuse Patient Records regulations: The Federal rules restrict any use of the information to criminally investigate or prosecute any alcohol or drug abuse patient.[facility] HospitalIn the event this information is protected by the Federal Confidentiality of Alcohol and Drug Abuse Patient Records regulations: The Federal rules restrict any use of the information to criminally investigate or prosecute any alcohol or drug abuse patient.[facility] HospitalIn the event this information is protected by the Federal Confidentiality of Alcohol and Drug Abuse Patient Records regulations: The Federal rules restrict any use of the information to criminally investigate or prosecute any alcohol or drug abuse patient.[facility] HospitalIn the event this information is protected by the Federal Confidentiality of Alcohol and Drug Abuse Patient Records regulations: The Federal rules restrict any use of the information to criminally investigate or prosecute any alcohol or drug abuse patient.[facility] HospitalIn the event this information is protected by the Federal Confidentiality of Alcohol and Drug Abuse Patient Records regulations: The Federal rules restrict any use of the information to criminally investigate or prosecute any alcohol or drug abuse patient.[facility] HospitalIn the event this information is protected by the Federal Confidentiality of Alcohol and Drug Abuse Patient Records regulations: The Federal rules restrict any use of the information to criminally investigate or prosecute any alcohol or drug abuse patient.[facility] HospitalIn the event this information is protected by the Federal Confidentiality of Alcohol and Drug Abuse Patient Records regulations: The Federal rules restrict any use of the information to criminally investigate or prosecute any alcohol or drug abuse patient.[facility] HospitalIn the event this information is protected by the Federal Confidentiality of Alcohol and Drug Abuse Patient Records regulations: The Federal rules restrict any use of the information to criminally investigate or prosecute any alcohol or drug abuse patient.[facility] HospitalIn the event this information is protected by the Federal Confidentiality of Alcohol and Drug Abuse Patient Records regulations: The Federal rules restrict any use of the information to criminally investigate or prosecute any alcohol or drug abuse patient.[facility] HospitalIn the event this information is protected by the Federal Confidentiality of Alcohol and Drug Abuse Patient Records regulations: The Federal rules restrict any use of the information to criminally investigate or prosecute any alcohol or drug abuse patient.[facility] HospitalIn the event this information is protected by the Federal Confidentiality of Alcohol and Drug Abuse Patient Records regulations: The Federal rules restrict any use of the information to criminally investigate or prosecute any alcohol or drug abuse patient.[facility] HospitalIn the event this information is protected by the Federal Confidentiality of Alcohol and Drug Abuse Patient Records regulations: The Federal rules restrict any use of the information to criminally investigate or prosecute any alcohol or drug abuse patient.[facility] HospitalIn the event this information is protected by the Federal Confidentiality of Alcohol and Drug Abuse Patient Records regulations: The Federal rules restrict any use of the information to criminally investigate or prosecute any alcohol or drug abuse patient.[facility] HospitalIn the event this information is protected by the Federal Confidentiality of Alcohol and Drug Abuse Patient Records regulations: The Federal rules restrict any use of the information to criminally investigate or prosecute any alcohol or drug abuse patient.[facility] HospitalIn the event this information is protected by the Federal Confidentiality of Alcohol and Drug Abuse Patient Records regulations: The Federal rules restrict any use of the information to criminally investigate or prosecute any alcohol or drug abuse patient.[facility] HospitalIn the event this information is protected by the Federal Confidentiality of Alcohol and Drug Abuse Patient Records regulations: The Federal rules restrict any use of the information to criminally investigate or prosecute any alcohol or drug abuse patient.[facility] HospitalIn the event this information is protected by the Federal Confidentiality of Alcohol and Drug Abuse Patient Records regulations: The Federal rules restrict any use of the information to criminally investigate or prosecute any alcohol or drug abuse patient.[facility] HospitalIn the event this information is protected by the Federal Confidentiality of Alcohol and Drug Abuse Patient Records regulations: The Federal rules restrict any use of the information to criminally investigate or prosecute any alcohol or drug abuse patient.[facility] HospitalIn the event this information is protected by the Federal Confidentiality of Alcohol and Drug Abuse Patient Records regulations: The Federal rules restrict any use of the information to criminally investigate or prosecute any alcohol or drug abuse patient.[facility] HospitalIn the event this information is protected by the Federal Confidentiality of Alcohol and Drug Abuse Patient Records regulations: The Federal rules restrict any use of the information to criminally investigate or prosecute any alcohol or drug abuse patient.[facility] HospitalIn the event this information is protected by the Federal Confidentiality of Alcohol and Drug Abuse Patient Records regulations: The Federal rules restrict any use of the information to criminally investigate or prosecute any alcohol or drug abuse patient.[facility] HospitalIn the event this information is protected by the Federal Confidentiality of Alcohol and Drug Abuse Patient Records regulations: The Federal rules restrict any use of the information to criminally investigate or prosecute any alcohol or drug abuse patient.[facility] HospitalIn the event this information is protected by the Federal Confidentiality of Alcohol and Drug Abuse Patient Records regulations: The Federal rules restrict any use of the information to criminally investigate or prosecute any alcohol or drug abuse patient.[facility] HospitalIn the event this information is protected by the Federal Confidentiality of Alcohol and Drug Abuse Patient Records regulations: The Federal rules restrict any use of the information to criminally investigate or prosecute any alcohol or drug abuse patient.[facility] HospitalIn the event this information is protected by the Federal Confidentiality of Alcohol and Drug Abuse Patient Records regulations: The Federal rules restrict any use of the information to criminally investigate or prosecute any alcohol or drug abuse patient.[facility] HospitalIn the event this information is protected by the Federal Confidentiality of Alcohol and Drug Abuse Patient Records regulations: The Federal rules restrict any use of the information to criminally investigate or prosecute any alcohol or drug abuse patient.[facility] HospitalIn the event this information is protected by the Federal Confidentiality of Alcohol and Drug Abuse Patient Records regulations: The Federal rules restrict any use of the information to criminally investigate or prosecute any alcohol or drug abuse patient.[facility] HospitalIn the event this information is protected by the Federal Confidentiality of Alcohol and Drug Abuse Patient Records regulations: The Federal rules restrict any use of the information to criminally investigate or prosecute any alcohol or drug abuse patient.[facility] HospitalIn the event this information is protected by the Federal Confidentiality of Alcohol and Drug Abuse Patient Records regulations: The Federal rules restrict any use of the information to criminally investigate or prosecute any alcohol or drug abuse patient.[facility] HospitalIn the event this information is protected by the Federal Confidentiality of Alcohol and Drug Abuse Patient Records regulations: The Federal rules restrict any use of the information to criminally investigate or prosecute any alcohol or drug abuse patient.[facility] the event this information is protected by the Federal Confidentiality of Alcohol and Drug Abuse Patient Records regulations: The Federal rules restrict any use of the information to criminally investigate or prosecute any alcohol or drug abuse patient.[facility] HospitalIn the event this information is protected by the Federal Confidentiality of Alcohol and Drug Abuse Patient Records regulations: The Federal rules restrict any use of the information to criminally investigate or prosecute any alcohol or drug abuse patient.[facility] HospitalIn the event this information is protected by the Federal Confidentiality of Alcohol and Drug Abuse Patient Records regulations: The Federal rules restrict any use of the information to criminally investigate or prosecute any alcohol or drug abuse patient.[facility]In the event this information is protected by the Federal Confidentiality of Alcohol and Drug Abuse Patient Records regulations: The Federal rules restrict any use of the information to criminally investigate or prosecute any alcohol or drug abuse patient.[facility] HospitalIn the event this information is protected by the Federal Confidentiality of Alcohol and Drug Abuse Patient Records regulations: The Federal rules restrict any use of the information to criminally investigate or prosecute any alcohol or drug abuse patient.[facility] HospitalIn the event this information is protected by the Federal Confidentiality of Alcohol and Drug Abuse Patient Records regulations: The Federal rules restrict any use of the information to criminally investigate or prosecute any alcohol or drug abuse patient.[facility] HospitalIn the event this information is protected by the Federal Confidentiality of Alcohol and Drug Abuse Patient Records regulations: The Federal rules restrict any use of the information to criminally investigate or prosecute any alcohol or drug abuse patient.[facility] HospitalIn the event this information is protected by the Federal Confidentiality of Alcohol and Drug Abuse Patient Records regulations: The Federal rules restrict any use of the information to criminally investigate or prosecute any alcohol or drug abuse patient.[facility] HospitalIn the event this information is protected by the Federal Confidentiality of Alcohol and Drug Abuse Patient Records regulations: The Federal rules restrict any use of the information to criminally investigate or prosecute any alcohol or drug abuse patient.[facility] HospitalIn the event this information is protected by the Federal Confidentiality of Alcohol and Drug Abuse Patient Records regulations: The Federal rules restrict any use of the information to criminally investigate or prosecute any alcohol or drug abuse patient.[facility] HospitalIn the event this information is protected by the Federal Confidentiality of Alcohol and Drug Abuse Patient Records regulations: The Federal rules restrict any use of the information to criminally investigate or prosecute any alcohol or drug abuse patient.[facility] HospitalIn the event this information is protected by the Federal Confidentiality of Alcohol and Drug Abuse Patient Records regulations: The Federal rules restrict any use of the information to criminally investigate or prosecute any alcohol or drug abuse patient.[facility] HospitalIn the event this information is protected by the Federal Confidentiality of Alcohol and Drug Abuse Patient Records regulations: The Federal rules restrict any use of the information to criminally investigate or prosecute any alcohol or drug abuse patient.[facility] HospitalIn the event this information is protected by the Federal Confidentiality of Alcohol and Drug Abuse Patient Records regulations: The Federal rules restrict any use of the information to criminally investigate or prosecute any alcohol or drug abuse patient.[facility] HospitalIn the event this information is protected by the Federal Confidentiality of Alcohol and Drug Abuse Patient Records regulations: The Federal rules restrict any use of the information to criminally investigate or prosecute any alcohol or drug abuse patient.[facility] HospitalIn the event this information is protected by the Federal Confidentiality of Alcohol and Drug Abuse Patient Records regulations: The Federal rules restrict any use of the information to criminally investigate or prosecute any alcohol or drug abuse patient.[facility] HospitalIn the event this information is protected by the Federal Confidentiality of Alcohol and Drug Abuse Patient Records regulations: The Federal rules restrict any use of the information to criminally investigate or prosecute any alcohol or drug abuse patient.[facility] HospitalIn the event this information is protected by the Federal Confidentiality of Alcohol and Drug Abuse Patient Records regulations: The Federal rules restrict any use of the information to criminally investigate or prosecute any alcohol or drug abuse patient.[facility] HospitalIn the event this information is protected by the Federal Confidentiality of Alcohol and Drug Abuse Patient Records regulations: The Federal rules restrict any use of the information to criminally investigate or prosecute any alcohol or drug abuse patient.[facility] HospitalIn the event this information is protected by the Federal Confidentiality of Alcohol and Drug Abuse Patient Records regulations: The Federal rules restrict any use of the information to criminally investigate or prosecute any alcohol or drug abuse patient.[facility] HospitalIn the event this information is protected by the Federal Confidentiality of Alcohol and Drug Abuse Patient Records regulations: The Federal rules restrict any use of the information to criminally investigate or prosecute any alcohol or drug abuse patient.[facility] HospitalIn the event this information is protected by the Federal Confidentiality of Alcohol and Drug Abuse Patient Records regulations: The Federal rules restrict any use of the information to criminally investigate or prosecute any alcohol or drug abuse patient.[facility] HospitalIn the event this information is protected by the Federal Confidentiality of Alcohol and Drug Abuse Patient Records regulations: The Federal rules restrict any use of the information to criminally investigate or prosecute any alcohol or drug abuse patient.[facility] HospitalIn the event this information is protected by the Federal Confidentiality of Alcohol and Drug Abuse Patient Records regulations: The Federal rules restrict any use of the information to criminally investigate or prosecute any alcohol or drug abuse patient.[facility] HospitalIn the event this information is protected by the Federal Confidentiality of Alcohol and Drug Abuse Patient Records regulations: The Federal rules restrict any use of the information to criminally investigate or prosecute any alcohol or drug abuse patient.[facility] HospitalIn the event this information is protected by the Federal Confidentiality of Alcohol and Drug Abuse Patient Records regulations: The Federal rules restrict any use of the information to criminally investigate or prosecute any alcohol or drug abuse patient.[facility] HospitalIn the event this information is protected by the Federal Confidentiality of Alcohol and Drug Abuse Patient Records regulations: The Federal rules restrict any use of the information to criminally investigate or prosecute any alcohol or drug abuse patient.[facility] HospitalIn the event this information is protected by the Federal Confidentiality of Alcohol and Drug Abuse Patient Records regulations: The Federal rules restrict any use of the information to criminally investigate or prosecute any alcohol or drug abuse patient.[facility] HospitalIn the event this information is protected by the Federal Confidentiality of Alcohol and Drug Abuse Patient Records regulations: The Federal rules restrict any use of the information to criminally investigate or prosecute any alcohol or drug abuse patient.[facility] HospitalIn the event this information is protected by the Federal Confidentiality of Alcohol and Drug Abuse Patient Records regulations: The Federal rules restrict any use of the information to criminally investigate or prosecute any alcohol or drug abuse patient.[facility] HospitalIn the event this information is protected by the Federal Confidentiality of Alcohol and Drug Abuse Patient Records regulations: The Federal rules restrict any use of the information to criminally investigate or prosecute any alcohol or drug abuse patient.[facility] HospitalIn the event this information is protected by the Federal Confidentiality of Alcohol and Drug Abuse Patient Records regulations: The Federal rules restrict any use of the information to criminally investigate or prosecute any alcohol or drug abuse patient.[facility] HospitalIn the event this information is protected by the Federal Confidentiality of Alcohol and Drug Abuse Patient Records regulations: The Federal rules restrict any use of the information to criminally investigate or prosecute any alcohol or drug abuse patient.[facility] HospitalIn the event this information is protected by the Federal Confidentiality of Alcohol and Drug Abuse Patient Records regulations: The Federal rules restrict any use of the information to criminally investigate or prosecute any alcohol or drug abuse patient.[facility] HospitalIn the event this information is protected by the Federal Confidentiality of Alcohol and Drug Abuse Patient Records regulations: The Federal rules restrict any use of the information to criminally investigate or prosecute any alcohol or drug abuse patient.[facility] HospitalIn the event this information is protected by the Federal Confidentiality of Alcohol and Drug Abuse Patient Records regulations: The Federal rules restrict any use of the information to criminally investigate or prosecute any alcohol or drug abuse patient.[facility] HospitalIn the event this information is protected by the Federal Confidentiality of Alcohol and Drug Abuse Patient Records regulations: The Federal rules restrict any use of the information to criminally investigate or prosecute any alcohol or drug abuse patient.[facility] HospitalIn the event this information is protected by the Federal Confidentiality of Alcohol and Drug Abuse Patient Records regulations: The Federal rules restrict any use of the information to criminally investigate or prosecute any alcohol or drug abuse patient.[facility] HospitalIn the event this information is protected by the Federal Confidentiality of Alcohol and Drug Abuse Patient Records regulations: The Federal rules restrict any use of the information to criminally investigate or prosecute any alcohol or drug abuse patient.[facility] HospitalIn the event this information is protected by the Federal Confidentiality of Alcohol and Drug Abuse Patient Records regulations: The Federal rules restrict any use of the information to criminally investigate or prosecute any alcohol or drug abuse patient.[facility] HospitalIn the event this information is protected by the Federal Confidentiality of Alcohol and Drug Abuse Patient Records regulations: The Federal rules restrict any use of the information to criminally investigate or prosecute any alcohol or drug abuse patient.[facility] HospitalIn the event this information is protected by the Federal Confidentiality of Alcohol and Drug Abuse Patient Records regulations: The Federal rules restrict any use of the information to criminally investigate or prosecute any alcohol or drug abuse patient.[facility] HospitalIn the event this information is protected by the Federal Confidentiality of Alcohol and Drug Abuse Patient Records regulations: The Federal rules restrict any use of the information to criminally investigate or prosecute any alcohol or drug abuse patient.[facility] HospitalIn the event this information is protected by the Federal Confidentiality of Alcohol and Drug Abuse Patient Records regulations: The Federal rules restrict any use of the information to criminally investigate or prosecute any alcohol or drug abuse patient.[facility] HospitalIn the event this information is protected by the Federal Confidentiality of Alcohol and Drug Abuse Patient Records regulations: The Federal rules restrict any use of the information to criminally investigate or prosecute any alcohol or drug abuse patient.[facility] HospitalIn the event this information is protected by the Federal Confidentiality of Alcohol and Drug Abuse Patient Records regulations: The Federal rules restrict any use of the information to criminally investigate or prosecute any alcohol or drug abuse patient.[facility] HospitalIn the event this information is protected by the Federal Confidentiality of Alcohol and Drug Abuse Patient Records regulations: The Federal rules restrict any use of the information to criminally investigate or prosecute any alcohol or drug abuse patient.[facility] HospitalIn the event this information is protected by the Federal Confidentiality of Alcohol and Drug Abuse Patient Records regulations: The Federal rules restrict any use of the information to criminally investigate or prosecute any alcohol or drug abuse patient.[facility] HospitalIn the event this information is protected by the Federal Confidentiality of Alcohol and Drug Abuse Patient Records regulations: The Federal rules restrict any use of the information to criminally investigate or prosecute any alcohol or drug abuse patient.[facility] HospitalIn the event this information is protected by the Federal Confidentiality of Alcohol and Drug Abuse Patient Records regulations: The Federal rules restrict any use of the information to criminally investigate or prosecute any alcohol or drug abuse patient.[facility] HospitalIn the event this information is protected by the Federal Confidentiality of Alcohol and Drug Abuse Patient Records regulations: The Federal rules restrict any use of the information to criminally investigate or prosecute any alcohol or drug abuse patient.[facility] Reason for Visit (unrecogniz ed section and content) Reason Comments Referral Information duodenal stricture Reason Comments New Patient Evaluation Mr. 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 Reason Comments Appointment SCHEDULED WITH LAUREN GARCIA ON 03/14/22 @ 1:45PM Reason Onset Date Comments Refill Request 03/14/2022 Reason Onset Date Comments Refill Request 03/17/2022 Reason Comments Immunizations Reason Comments Results Reason Onset Date Comments Refill Request 04/07/2022 Reason Onset Date Comments Refill Request 04/27/2022 Reason Onset Date Comments Refill Request 05/04/2022 Reason Comments Radiology US Specialty Diagnoses / Procedures Referred By Contac t Referred To Contact US IMAGING Diagnoses Abdominal aortic aneurysm (AAA) without rupture (HCC) Procedures US ABD AORTA US RETROPERITONEAL REAL TIME W/IMAGE LIMITED Samuel Foy MD [address] [place] [address] Us Imaging Referral ID Status Reason Start Date Expiration Date V isits Requested Visits Authorized [id number] Closed Auto-Generate d Referral 05/04/2022 06/03/2023 1 1 Reason Comments Follow Up 6 month Rx Refills wants new rx for nap roxen 500mg prn Reason Onset Date Comments Refill Request 06/03/2022 Reason Onset Date Comments Refill Request 06/17/2022 Reason Onset Date Comments Refill Request 07/03/2022 Reason Onset Date Comments Refill Request 07/14/2022 Reason Onset Date Comments Refill Request 08/03/2022 Reason Comments Appointment Confirmation Reason Comments New Patient Specialty Diagnoses / Procedures Referred By Contac t Referred To Contact Vascular Surgery Diagnoses Abdominal aortic aneurysm (AAA) without rupture Procedures CONSULT TO VASCULAR SURGERY OFFICE/OUTPATIENT NEW HIGH MDM 60-74 MINUTES Samuel Foy MD [address] [place] [address] Referral ID Status Reason Start Date Expiration Date Visits Requested Visits Authorized [id number] Pending Review PCP Requested Referral 05/04/2022 05/04/2023 1 1 Reason Comments New Patient Reason Onset Date Comments Refill Request 09/27/2022 Reason Comments Diarrhea X 3 weeks and now se eing blood in stool Reason Onset Date Comments Refill Request 11/13/2022 Reason Onset Date Comments Refill Request 12/08/2022 Reason Comments Recheck Reason Onset Date Comments Refill Request 12/24/2022 Reason Onset Date Comments Refill Request 01/22/2023 Reason Onset Date Comments Refill Request 02/04/2023 Reason Comments F/U 6 Month Reason Onset Date Comments Refill Request 02/17/2023 Reason Onset Date Comments Refill Request 03/06/2023 Reason Onset Date Comments Refill Request 04/21/2023 Reason Onset Date Comments Refill Request 04/28/2023 Reason Onset Date Comments Refill Request 05/15/2023 Reason Onset Date Comments Refill Request 05/30/2023 Reason Comments Schedule Surgery Reason Comments Established Patient Trigger finger Reason Onset Date Comments Refill Request 06/30/2023 Reason Onset Date Comments Refill Request 07/23/2023 Reason Comments Post Op 1 week 4 days post Right index trigger f aguilar release Reason Comments Radiology CT Specialty Diagnoses / Procedures Referred By Contac t Referred To Contact CT IMAGING Diagnoses Encounter for other preprocedural examination Procedures CTA ABD/PEL WO/W IVCON CT ANGIO ABD&PLVIS CNTRST MTRL W/WO CNTRST Naif Diaz MD [address] [place] [id number] [facility] [place] [address] Referral ID Status Reason Start Date Expiration Date Visits Re quested Visits Authorized [id number] Closed 07/26/2023 09/24/2023 1 1 Reason Comments Follow Up Reason Onset Date Comments Refill Request 08/21/2023 Reason Onset Date Comments Refill Request 08/24/2023 Reason Onset Date Comments Refill Request 09/10/2023 Reason Onset Date Comments Refill Request 11/10/2023 Reason Onset Date Comments Refill Request 01/06/2024 Reason Onset Date Comments Refill Request 01/21/2024 Reason Onset Date Comments Refill Request 02/03/2024 Reason Onset Date Comments Refill Request 02/23/2024 Reason Onset Date Comments Refill Request 02/29/2024 Reason Onset Date Comments Refill Request 03/06/2024 Reason Onset Date Comments Refill Request 03/27/2024 Reason Comments Cough Cough, chest congest ion and ST x 5 days Reason Onset Date Comments Refill Request 05/11/2024 Reason Comments Chest Congestion cough and diarrhea x 4 days Reason Comments Follow Up diarrhea since seen in [facility], [place] on 06/15/24 Reason Comments F/U 6 months Reason Onset Date Comments Refill Request 08/01/2024 Reason Onset Date Comments Refill Request 08/24/2024 Reason Onset Date Comments Refill Request 08/28/2024 Reason Onset Date Comments Refill Request 10/02/2024 Specialty Diagnoses / Procedures Referred By Contac t Referred To Contact CT IMAGING Diagnoses Abdominal aortic aneurysm (AAA) without rupture, unspecified part (HCC) Procedures CTA ABD/PEL WO/W IVCON CT ANGIO ABD&PLVIS CNTRST MTRL W/[place] [address] [place] [id number] Imaging [id number] Referral ID Status Reason Start Date Expiration Date V isits Requested Visits Authorized [id number] Closed Auto-Generate d Referral 10/08/2024 10/07/2025 1 1 Reason Onset Date Comments Refill Request 10/25/2024 Reason Onset Date Comments Refill Request 10/27/2024 Reason Comments ER F/U RSV Reason Onset Date Comments Refill Request 11/11/2024 Reason Comments Follow Up 6 month routine Reason Onset Date Comments Refill Request 01/23/2025 Reason Onset Date Comments Refill Request 02/13/2025 Reason Onset Date Comments Refill Request 02/23/2025 Reason Onset Date Comments Refill Request 03/03/2025 Care Teams (unrecognized sec tion and content) Recep Relationship Specialty Start Date End Date Samuel Foy MD [address] [facility] [place] [address] PCP - General Family Practice 12/11/17 Recep Relationship Specialty Start Date End Date Samuel Foy MD [address] [facility] [place] [address] PCP - General Family Practice 12/11/17 Recep Relationship Specialty Start Date End Date Samuel Foy MD [address] [place] [place] [address] PCP - General Family Practice 12/11/17 Recep Relationship Specialty Start Date End Date Samuel Foy MD [address] [place] [place] [address] PCP - General Family Practice 12/11/17 Recep Relationship Specialty Start Date End Date Samuel Foy MD [address] [place] [place] [address] PCP - General Family Practice 12/11/17 Recep Relationship Specialty Start Date End Date Samuel Foy MD [address] [place] [place] [address] PCP - General Family Practice 12/11/17 Recep Relationship Specialty Start Date End Date Samuel Foy MD [address] [place] [place] [address] PCP - General Family Practice 12/11/17 Recep Relationship Specialty Start Date End Date Samuel Foy MD [address] [place] [place] [address] PCP - General Family Practice 12/11/17 Recep Relationship Specialty Start Date End Date Samuel Foy MD [address] [place] [place] [address] PCP - General Family Practice 12/11/17 Recep Relationship Specialty Start Date End Date Samuel Foy MD [address] [place] [place] [address] PCP - General Family Practice 12/11/17 Recep Relationship Specialty Start Date End Date Samuel Foy MD [address] [place] [place] [address] PCP - General Family Practice 12/11/17 Recep Relationship Specialty Start Date End Date Samuel Foy MD [address] [place] [address] PCP - General Family Practice 12/11/17 Recep Relationship Specialty Start Date End Date Samuel Foy MD [address] [place] [place] [address] PCP - General Family Medicine 12/11/17 Recep Relationship Specialty Start Date End Date Samuel Foy MD [address] [place] [address] PCP - General Family Medicine 12/11/17 Recep Relationship Specialty Start Date End Date Samuel Foy MD [address] [place] [place] [address] PCP - General Family Medicine 12/11/17 Recep Relationship Specialty Start Date End Date Samuel Foy MD [address] [place] [place] [address] PCP - General Family Medicine 12/11/17 Recep Relationship Specialty Start Date End Date Samuel Foy MD [address] [place] [address] PCP - General Family Medicine 12/11/17 Recep Relationship Specialty Start Date End Date Samuel Foy MD [address] [place] [address] PCP - General Family Medicine 12/11/17 Recep Relationship Specialty Start Date End Date Samuel Foy MD [address] [place] [address] PCP - General Family Medicine 12/11/17 Recep Relationship Specialty Start Date End Date Samuel Foy MD [address] [place] [address] PCP - General Family Medicine 12/11/17 Recep Relationship Specialty Start Date End Date Samuel Foy MD [address] [place] [address] PCP - General Family Medicine 12/11/17 Recep Relationship Specialty Start Date End Date Samuel Foy MD [address] [place] [address] PCP - General Family Medicine 12/11/17 Recep Relationship Specialty Start Date End Date Samuel Foy MD [address] [place] [address] PCP - General Family Medicine 12/11/17 Recep Relationship Specialty Start Date End Date Samuel Foy MD [address] [place] [address] PCP - General Family Medicine 12/11/17 Recep Relationship Specialty Start Date End Date Samuel Foy MD [address] [facility] [place] [address] PCP - General Family Medicine 12/11/17 Recep Relationship Specialty Start Date End Date Samuel Foy MD [address] [place] [address] PCP - General Family Medicine 12/11/17 Recep Relationship Specialty Start Date End Date Samuel Foy MD [address] [place] [address] PCP - General Family Medicine 12/11/17 Recep Relationship Specialty Start Date End Date Samuel Foy MD [address] [place] [place] [address] PCP - General Family Medicine 12/11/17 Recep Relationship Specialty Start Date End Date Samuel Foy MD [address] [place] [address] PCP - General Family Medicine 12/11/17 Recep Relationship Specialty Start Date End Date Samuel Foy MD [address] [place] [address] PCP - General Family Medicine 12/11/17 Recep Relationship Specialty Start Date End Date Samuel Foy MD [address] [place] [place] [address] PCP - General Family Medicine 12/11/17 Recep Relationship Specialty Start Date End Date Samuel Foy MD [address] [place] [place] [address] PCP - General Family Medicine 12/11/17 Recep Relationship Specialty Start Date End Date Samuel Foy MD [address] [place] [address] PCP - General Family Medicine 12/11/17 Recep Relationship Specialty Start Date End Date Samuel Foy MD [address] [place] [address] PCP - General Family Medicine 12/11/17 Recep Relationship Specialty Start Date End Date Samuel Foy MD [address] [place] [address] PCP - General Family Medicine 12/11/17 Recep Relationship Specialty Start Date End Date Samuel Foy MD [address] [place] [address] PCP - General Family Medicine 12/11/17 Recep Relationship Specialty Start Date End Date Samuel Foy MD [address] [place] [address] PCP - General Family Medicine 12/11/17 Recep Relationship Specialty Start Date End Date Samuel Foy MD [address] [place] [address] PCP - General Family Medicine 12/11/17 Recep Relationship Specialty Start Date End Date Samuel Foy MD [address] [place] [address] PCP - General Family Medicine 12/11/17 Recep Relationship Specialty Start Date End Date Samuel Foy MD [address] [place] [address] PCP - General Family Medicine 12/11/17 Recep Relationship Specialty Start Date End Date Samuel Foy MD [address] [place] [address] PCP - General Family Medicine 12/11/17 Recep Relationship Specialty Start Date End Date Samuel Foy MD [address] [place] [address] PCP - General Family Medicine 12/11/17 Recep Relationship Specialty Start Date End Date Samuel Foy MD [address] [place] [address] PCP - General Family Medicine 12/11/17 Recep Relationship Specialty Start Date End Date Samuel Foy MD [address] [place] [address] PCP - General Family Medicine 12/11/17 Recep Relationship Specialty Start Date End Date Samuel Foy MD [address] [place] [address] PCP - General Family Medicine 12/11/17 Recep Relationship Specialty Start Date End Date Samuel Foy MD [address] [place] [address] PCP - General Family Medicine 12/11/17 Recep Relationship Specialty Start Date End Date Samuel Foy MD [address] [place] [address] PCP - General Family Medicine 12/11/17 Recep Relationship Specialty Start Date End Date Samuel Foy MD [address] [facility] [place] [address] PCP - General Family Medicine 12/11/17 Recep Relationship Specialty Start Date End Date Samuel Foy MD [address] [place] [address] PCP - General Family Medicine 12/11/17 Recep Relationship Specialty Start Date End Date Samuel Foy MD [address] [facility] [place] [address] PCP - General Family Medicine 12/11/17 Recep Relationship Specialty Start Date End Date Samuel Foy MD [address] [facility] [place] [address] PCP - General Family Medicine 12/11/17 Recep Relationship Specialty Start Date End Date Samuel Foy MD [address] [facility] [place] [address] PCP - General Family Medicine 12/11/17 Recep Relationship Specialty Start Date End Date Samuel Foy MD [address] [facility] [place] [address] PCP - General Family Medicine 12/11/17 AclogMelanie mauricio APRN.CNP [address] [facility] [place] [address] Public Health Advisor Family Medicine 09/13/24 Recep Relationship Specialty Start Date End Date Samuel Foy MD [address] [place] [address] PCP - General Family Medicine 12/11/17 PodlogarMelanie APRN.PROFILE STITCHING MACHINE OPERATOR [address] [facility] [place] [address] Public Health Advisor Family Medicine 09/13/24 Recep Relationship Specialty Start Date End Date Samuel Foy MD [address] [facility] [place] [address] PCP - General Family Medicine 12/11/17 PodlogarMelanie APRN.PROFILE STITCHING MACHINE OPERATOR [address] [facility] [place] [address] Public Health Advisor Family Medicine 09/13/24 Recep Relationship Specialty Start Date End Date Samuel Foy MD [address] [facility] [place] [address] PCP - General Family Medicine 12/11/17 PodlogarMelanie APRN.PROFILE STITCHING MACHINE OPERATOR [address] [facility] [place] [address] Public Health Advisor Family Medicine 09/13/24 Recep Relationship Specialty Start Date End Date Samuel Foy MD [address] [place] [address] PCP - General Family Medicine 12/11/17 PodlogarMelanie APRN.PROFILE STITCHING MACHINE OPERATOR [address] [facility] [place] [address] Public Health Advisor Family Medicine 09/13/24 Lelo Grace APRN.PROFILE STITCHING MACHINE OPERATOR [address] [place] [address] Public Health Advisor Family Medicine 12/29/24 Team Status: Active Member Role Status Dates Dr. Rush Foy MD Primary Care Provider Acti ve Team Status: Inactive Member Role Status Dates Dr. Rush Foy MD Primary Care Provider Acti ve Start: October 26, 2024 End: October 27, 2024 Dr. Freddy Valle DO Attending Provider Active Start: October 26, 2024 End: October 27, 2024 Dr. Freddy Valle DO Emergency Provider Active Start: October 26, 2024 End: October 27, 2024 Team Status: Inactive Member Role Status Dates Dr. Rush Foy MD Primary Care Provider Acti ve Start: November 19, 2024 End: November 19, 2024 Dr. Rush Foy MD Referring Provider Active Start: November 19, 2024 End: November 19, 2024 EMELIA Moon Attending Provider Active Start: November 19, 2024 End: November 19, 2024 Team Status: Inactive Member Role Status Dates Dr. Rush Foy MD Primary Care Provider Acti ve Start: December 04, 2024 End: December 04, 2024 Dr. Rush Foy MD Referring Provider Active Start: December 04, 2024 End: December 04, 2024 Dr. Carlton Moran DO Attending Provider Active Start: December 04, 2024 End: December 04, 2024 Team Status: Active Member Role Status Dates Dr. Rush Foy MD Primary Care Provider Acti ve Start: December 04, 2024 Dr. Carlton Moran DO Attending Provider Active Start: December 04, 2024 Dr. Carlton Moran DO Referring Provider Active Start: December 04, 2024 Team Status: Inactive Member Role Status Dates Dr. Rush Foy MD Primary Care Provider Acti ve Start: December 16, 2024 End: December 16, 2024 Dr. Rush Foy MD Referring Provider Active Start: December 16, 2024 End: December 16, 2024 EMELIA Moon Attending Provider Active Start: December 16, 2024 End: December 16, 2024 Team Status: Inactive Member Role Status Dates Dr. Rush Foy MD Primary Care Provider Acti ve Start: January 19, 2025 End: January 19, 2025 EMELIA Moon Attending Provider Active Start: January 19, 2025 End: January 19, 2025 EMELIA Moon Referring Provider Active Start: January 19, 2025 End: January 19, 2025 Recep Relationship Specialty Start Date End Date Samuel Foy MD [address] [place] [address] PCP - General Family Medicine 12/11/17 Podlogar, Melanie HVAC ESTIMATOR.PROFILE STITCHING MACHINE OPERATOR [address] [place] [address] Public Health Advisor Family Medicine 09/13/24 Lelo Grace, HVAC ESTIMATOR.PROFILE STITCHING MACHINE OPERATOR [address] [place] [address] Public Health Advisor [facility] 12/29/24 Recep Relationship Specialty Start Date End Date Samuel Foy MD [address] [place] [address] PCP - General Family Medicine 12/11/17 Podlogar, Melanie, HVAC ESTIMATOR.PROFILE STITCHING MACHINE OPERATOR [address] [place] [address] [facility] 09/13/24 Recep Relationship Specialty Start Date End Date Samuel Foy MD [address] [place] [address] PCP - General Family Medicine 12/11/17 Podlogar, Melanie, HVAC ESTIMATOR.PROFILE STITCHING MACHINE OPERATOR [address] [place] [address] [facility] 09/13/24 Goals (unrecognized section and content) Goals may be documented in a n alternate sectionGoals may be documented in an alternate sectionGoals may be documented in an alternate section FOR RECORDS PERTAINING TO PATIENTS WHO ARE OR HAVE BEEN ENROLLED IN A CHEMICAL DEPENDENCY/SUBSTANCEABUSE PROGRAM, SOME INFORMATION MAY BE OMITTED. This clinical summary was aggregated from multiple sources. Caution should be exercised in using it in the provision of clinical care. This summary normalizes information from multiple sources, and as a consequence, information in this document may materially change the coding, format and clinical context of patient data. In addition, data may be omitted in some cases. CLINICAL DECISIONS SHOULD BE BASED ON THE PRIMARY CLINICAL RECORDS. [facility]. provides no warranty or guarantee of the accuracy or completeness of information in this document.
[2025-04-04 08:24] VITALS: BP 133/75; PULSE 56; RESP 16; TEMP 36.4; O2SAT 96
== END 2025-04-04 08:25 | disposition home or self-care (01) ==
LOC: ED 08:02
PROVIDERS: Emergency Provider Emergency Medicine; PCP Family Medicine; Visit Provider Emergency Medicine
DX: S46.212A Strain of muscle, fascia and tendon of other parts of biceps, left arm, initial encounter (principal); I25.10 Atherosclerotic heart disease of native coronary artery without angina pectoris; Z87.891 Personal history of nicotine dependence; K21.9 Gastro-esophageal reflux disease without esophagitis; I10 Essential (primary) hypertension; E78.00 Pure hypercholesterolemia, unspecified; X50.0XXA Overexertion from strenuous movement or load, initial encounter
CPT/HCPCS: 99282